=== PATIENT | male | born 1950 | race Caucasian/White ===

== ENCOUNTER 2020-04-17 16:29 | Outpatient (CLI) | payer MEDICARE, MEDICAID, SELFPAY ==
--- NOTE | ~2020-04-17 | MR_ITS ---
EXAMINATION: MR foot LT wo con DATE: 04/17/2020 18:28 INDICATION: Osteomyelitis TECHNIQUE: Magnetic resonance imaging (MRI) of the left forefoot was performed without intravenous co ntrast. Sequences included axial, sagittal and coronal T1-weighted FSE and T2-weighted FS FSE, and ax ial PD-weighted FSE. COMPARISON: None FINDINGS: Marrow signal changes including prominent marrow edema and associated geographic loss of T1 marrow fa t signal at the first distal phalanx and head of the first proximal phalanx, at the second middle pha lanx and head of the proximal phalanx and at the third middle and distal phalanges which are suspicio us for septic arthritis and associated osteomyelitis centered at the first interphalangeal, second pr oximal interphalangeal and third distal interphalangeal joints. The low signal intensity peripheral c ortices are indistinct at several of the region of ostial myelitis suggesting osteolysis which could be more definitively assessed with plain radiographs. There is marrow edema at the medial head of the first metatarsal and at the first metatarsal sesamoids without geographic loss of T1 fat signal whic h is equivocal for reactive edema related to moderate osteoarthritis at the first metatarsophalangeal joint although early osteomyelitic cannot be absolutely excluded. No loculated fluid collections to suggest abscess. Extensive fatty atrophy of the visualized intrinsic musculature of the forefoot like ly related to chronic neuropathy. Soft tissue swelling and prominent subcutaneous edema over the dors um of the forefoot. IMPRESSION: 1. Joint centered marrow signal changes at the both sides of the left first interphalangeal, second p roximal interphalangeal and third distal interphalangeal joints suggesting septic arthritis and osteo myelitis. 2. Mild marrow edema at the head of the first metatarsal without definitive loss of T1 fat signal whi ch may be reactive related to the moderate osteoarthritis at the first metatarsophalangeal joint alth ough less advanced osteomyelitis could not be excluded. Reviewed, dictated and finalized at location A. IMPRESSION: 1. Joint centered marrow signal changes at the both sides of the left first int erphalangeal, second proximal interphalangeal and third distal interphalangeal joints suggesting septic arthritis and osteomyelitis. 2. Mild marrow edema at the head of the first metatarsal without definitive los s of T1 fat signal which may be reactive related to the moderate osteoarthritis at the first metatarsophalangeal joint although less advanced osteomyelitis co uld not be excluded.
[2020-04-17 17:03] LABS: Estimated Glomerular Filt Rate 26
== END 2020-04-17 16:30 | disposition home or self-care (01) ==
PROVIDERS: PCP Internal Medicine; Visit Provider General Practice
DX: M86.9 Osteomyelitis, unspecified (principal)
CPT/HCPCS: 73718

== ENCOUNTER 2020-04-26 17:29 | Emergency (ER) | payer MEDICARE, BC, MEDICAID, OTHER, SELFPAY ==
--- NOTE | ~2020-04-26 | XR_ITS ---
EXAMINATION: XR foot LT min 3V DATE: 04/26/2020 18:21 INDICATION: Foot infection, gangrene of the first toe TECHNIQUE: Three views of the left foot were obtained. COMPARISON: MRI, 04/17/2020 FINDINGS: There is a soft tissue ulceration of the first toe medially adjacent to the distal interpha langeal joint. There is adjacent osteopenia in the first distal phalanx. No fracture is identified. T here is moderate polyarticular osteoarthritis. Erosions are seen in the lateral base of the second mi ddle phalanx and the lateral head of the second proximal phalanx. There is also osteopenia of the thi rd distal phalanx. IMPRESSION: 1. Soft tissue ulceration of the first toe with findings suggestive of underlying osteoarthritis in t he first distal phalanx. 2. Additional osteomyelitis suggested in the second proximal interphalangeal joint and the third dist al interphalangeal joint as described on recent MRI. Reviewed, dictated and finalized at location A. IMPRESSION: 1. Soft tissue ulceration of the first toe with findings suggestive of underlyi ng osteoarthritis in the first distal phalanx. 2. Additional osteomyelitis suggested in the second proximal interphalangeal patricia int and the third distal interphalangeal joint as described on recent MRI.
[2020-04-26 17:40] VITALS: BP 160/60; PULSE 73; RESP 18; TEMP 36.8; O2SAT 98
--- NOTE | 2020-04-26 18:44 | ED.LOWEXIN ---
HPI - Extremity Injury (Lower) General Chief Complaint: Extremity Injury, Lower Stated Complaint: foot Source: patient Mode of arrival: EMS Limitations: no limitations History of Present Illness HPI Narrative: Patient presents with chief complaint of infection to the left great toe that has been persistently worsening over the past 3 weeks. Patient states that he has been managed by knot saw operator Dr. Vidal who told him that the toe needed to be removed, however the patient did not want to go to [facility], so he instead presented to [place] [facility]. Patient states that he feels pressure to the toe but has neuropathy in his feet so he does not necessarily feel pain to the areas. Patient denies having diabetes. Patient states that the wound started with irritation from his shoe which caused a blister and has now spread to the weeping wounds that he has on his feet at this time. Patient denies fever, chills, nausea, vomiting, inability needs or any other symptoms or concerns. Related Data Home Medications Medication Instructions Recorded Confirmed albuterol sulfate [Ventolin HFA] 1 puff INHALATION DAILY 04/26/20 04/26/20 apixaban [Eliquis] 2.5 mg PO DAILY 04/26/20 04/26/20 atorvastatin 10 mg PO HS 04/26/20 04/26/20 fenofibrate nanocrystallized mg PO 04/26/20 ferrous sulfate 325 mg PO DAILY 04/26/20 04/26/20 furosemide 10 mg 04/26/20 gabapentin 300 mg PO TID 04/26/20 04/26/20 levothyroxine 25 mcg PO DAILY 04/26/20 04/26/20 pantoprazole PO 04/26/20 Allergies Allergy/AdvReac Type Severity Reaction Status Date / Time codeine Allergy Unknown Verified 04/26/20 17:47 morphine Allergy Unknown Verified 04/26/20 17:47 Review of Systems Review of Systems: Narrative: CONSTITUTIONAL: Denies fever, chills, or sweats. EYES: Denies visual changes, redness, or discharge. ENT: Denies rhinorrhea, congestion, sore throat, or otalgia. CARDIOVASCULAR: Denies chest pain, palpitations, or edema. RESPIRATORY: Denies cough or dyspnea. GASTROINTESTINAL: Denies abdominal pain, nausea, vomiting, or diarrhea. GENITOURINARY: Denies dysuria or hematuria. SKIN: Reports left foot wound MUSCULOSKELETAL: Denies back pain, myalgia, or joint pain NEUROLOGIC: Denies headache, numbness, dizziness, or weakness. PSYCHIATRIC: Denies anxiety or depression. Exam Narrative: Exam Narrative: GENERAL: Well-appearing, well-nourished. HEAD: Normocephalic, atraumatic. EYES: PERRLA and EOMI. ENT: Nares clear, no rhinorrhea or epistaxis. Mucous membranes moist. Oropharynx without tonsillar hypertrophy exudate or other lesions. Bilateral TMs pearly garcia nonbulging NECK: Supple. No adenopathy or masses. No vertebral tenderness or loss of ROM. CHEST: Clear to auscultation. No respiratory distress. No wheezes rales or rhonchi HEART: Regular rate and rhythm. Normal peripheral pulses. ABDOMEN: Soft, nontender, nondistended, normal active bowel sounds. No bruises noted. EXTREMITIES: No acute changes in ROM. No edema. SKIN: There's dryness to patient lower extremities. DP pulse palpable. There's open ulceration noted to the medial and dorsal aspect of the left great toe. Wet to dry dressing removed. Skin warm to touch. Not much erythema. Small wounds on the other toes as well. NEURO: No focal deficits. Alert and oriented x3. PSYCH: Normal mood and affect. Course Vital Signs Vital signs: Vital Signs Temperature 98.2 F 04/26/20 17:40 Pulse Rate 73 04/26/20 17:40 Respiratory Rate 18 04/26/20 17:40 Blood Pressure 160/60 H 04/26/20 17:40 Pulse Oximetry 98 04/26/20 17:40 Temperature 98.2 F 04/26/20 17:40 Pulse Rate 81 04/26/20 19:58 Respiratory Rate 20 04/26/20 19:58 Blood Pressure 168/76 H 04/26/20 19:58 Pulse Oximetry 100 04/26/20 19:58 MDM - Extremity Injury (Lower) MDM Narrative Medical decision making narrative: Consult placed with orthopedically impaired teacher Dr. Masoud DEGROOT who states the patient does not have
[2020-04-26 18:48] LABS: Basophils Absolute Auto 0.1 K/mm3 (0.0-0.1); Basophils Percent Auto 0.7 % (0.2-1.2); Eosinophils Absolute Auto 0.8 K/mm3 (0-0.3); Eosinophils Percent Auto 8.8 % (0-4.4); Hematocrit 28.8 % (42.0-52.0); Hemoglobin 9.5 g/dL (14.0-18.0); Immature Granulocyte Absolute 0.01 K/mm3 (0.00-0.031); Immature Granulocyte Percent A 0.1 % (0-0.5); Lymphocytes Absolute Auto 1.98 K/mm3 (0.9-3.2); Lymphocytes Percent Auto 22.7 % (18.3-44.2); Mean Corpuscular Hemoglobin 28.1 pg (26-34); Mean Corpuscular Volume 85.2 fl (80-100); Monocytes Absolute Auto 0.7 K/mm3 (0.1-0.6); Monocytes Percent Auto 7.7 % (2.6-8.5); Neutrophils Absolute Auto 5.2 K/mm3 (1.3-6.7); Platelet Count Result 238 k/mm3 (150-375); Red Blood Count 3.38 M/mm3 (4.6-6.20); White Blood Count 8.7 K/mm3 (4.5-10.0)
[2020-04-26 18:58] LABS: INR 1.3; Prothrombin Time 15.4 Seconds (11.1-14.7)
[2020-04-26 19:00] LABS: Partial Thromboplastin Time 32.1 SECONDS (22.3-36.8)
[2020-04-26 19:02] LABS: Alanine Aminotransferase 29 U/L (4-50); Albumin Level 4.2 g/dL (3.5-5.1); Alkaline Phosphatase 410 U/L (38-126); Anion Gap 11 mmol/L (8-16); Aspartate Amino Transferase 24 U/L (17-59); Bilirubin,Total 0.7 mg/dL (0.2-1.3); Blood Urea Nitrogen 60 mg/dL (9-20); CRP 1.4 mg/dL (<1.0); Calcium 9.5 mg/dL (8.4-10.2); Carbon Dioxide 26 mmol/L (22-30); Chloride 102 mmol/L (98-107); Estimated CRCL calculation 46 ml/min; Estimated Glomerular Filt Rate 35; Glucose 98 mg/dL (75-110); Potassium 4.7 mmol/L (3.4-5.0); Sodium 139 mmol/L (137-145)
[2020-04-26 19:58] VITALS: BP 168/76; PULSE 81; RESP 20; O2SAT 100
[2020-04-26 21:19] VITALS: BP 165/74; PULSE 82; RESP 20; O2SAT 99
--- NOTE | 2020-04-27 00:32 | PC.NURSE ---
shannan arrived for transport to [facility]
[2020-04-27 00:47] VITALS: BP 163/72; PULSE 74; RESP 18; O2SAT 98
== END 2020-04-27 01:30 ==
PROVIDERS: Physician Assistant; Emergency Provider Emergency Medicine; PCP Internal Medicine
DX: M86.672 Other chronic osteomyelitis, left ankle and foot (principal); Z79.01 Long term (current) use of anticoagulants
CPT/HCPCS: 36415; 73630; 80053; 85025; 85610; 85730; 86140; 87040; 87070; 87077; 87186; 87205; 99283

== ENCOUNTER 2020-04-28 14:52 | Emergency (ER) | payer MEDICARE, BC, MEDICAID, OTHER, SELFPAY ==
[2020-04-28] VITALS (23 sets, daily range): BP systolic 107–137; BP diastolic 43–74; PULSE 63–70; RESP 14–18; TEMP 36.7; O2SAT 95–100
--- NOTE | ~2020-04-28 | XR_ITS ---
XR chest 1V portable DATE: 04/28/2020 16:54 INDICATION: Positive blood culture. Sepsis. Hypertension history. TECHNIQUE: Portable upright AP chest on 04/28/2020 at 1641 hours COMPARISON: None FINDINGS: Heart size appears normal. No hilar or mediastinal enlargement. No pulmonary consolidation is evident. There is suggestion of mild infiltrate or atelectasis in the l ower lung zones. Aortic arch calcification is suggested. Diffuse osteopenia. Degenerative changes of the thoracic spine. IMPRESSION: Mild infiltrate or atelectasis at the lung bases Reviewed, dictated and finalized at location A.
--- NOTE | ~2020-04-28 | XR_ITS ---
XR toe 1st LT min 2V DATE: 04/28/2020 16:54 INDICATION: Foot wound. Distal phalangeal infection. TECHNIQUE: Portable AP and lateral views COMPARISON: None FINDINGS: There is soft tissue swelling of the first digit. There is diffuse osteopenia. There is bone destruction of the tuft and anterior base of the distal phalanx, with mild subcutaneous emphysema, suggesting osteomyelitis. No radiopaque foreign body is evident. IMPRESSION: Bone destruction of distal phalanx in association with soft tissue swelling, suggesting o steomyelitis Reviewed, dictated and finalized at location A. IMPRESSION: Bone destruction of distal phalanx in association with soft tissue swelling, suggesting osteomyelitis
--- NOTE | 2020-04-28 15:02 | ED.RECABL ---
HPI - Recheck/Abnormal Lab/Rx General Chief Complaint: Wound/Laceration Stated Complaint: wound on foot + blood cultures Time Seen by Provider: 04/28/20 15:02 Source: patient and EMS Mode of arrival: EMS Limitations: no limitations History of Present Illness HPI narrative: Patient is a 69-year-old male who presents for evaluation after found to have positive blood cultures at [facility] facility. Patient states that he has had a left great toe wound over the past 2 weeks after he wore shoes that were too tight. Patient has a history of peripheral neuropathy but denies any history of diabetes. Patient states the toe has appeared red, swollen, black wound overlying the toe. Patient denies any fever, chills, cough or shortness of breath. He states he does not have much feeling in that foot. He does not endorse any pain. Patient states otherwise he is feeling well. Denies any abdominal pain, diarrhea, denies urinary symptoms. Pt seen here and evaluated on 04/26 by MIKAYLA Wilson and discharged home with outpatient follow up. Reviewed Gram stain from April 26, no white blood seen, rare gram-positive cocci in chains, isolate long, heavy growth of enterococcus species. Follows with Dr. Vidal at [facility]. Related Data Allergies Allergy/AdvReac Type Severity Reaction Status Date / Time codeine Allergy Nausea and Verified 04/28/20 15:46 Vomiting morphine Allergy Nausea and Verified 04/28/20 15:46 Vomiting Review of Systems Review of Systems: Narrative: CONSTITUTIONAL: Denies fever, chills, or sweats. ENT: Denies rhinorrhea, congestion, sore throat, or otalgia. CARDIOVASCULAR: Denies chest pain, palpitations, or edema. RESPIRATORY: Denies cough or dyspnea. GASTROINTESTINAL: Denies abdominal pain, nausea, vomiting, or diarrhea. GENITOURINARY: Denies dysuria or hematuria. SKIN: Denies rash or itching. MUSCULOSKELETAL: Denies back pain, joint pain, or myalgia. Reports wound to left great toe. NEUROLOGIC: Denies headache, numbness, or weakness. [facility] Past Medical History Medical History (Updated 04/28/20 @ 19:45 by Zhen Rawls MD) C. difficile colitis Hypertension Peripheral neuropathy Surgical History Surgical History (Updated 04/28/20 @ 19:27 by Zhen Rawls MD) History of colostomy Social History Social History (Updated 04/28/20 @ 15:29 by Shauna Ortiz MD) Smoking status: Never smoker Substance use: never Living arrangements: longterm Gender identity (if verbalized by the patient): Male Exam Narrative: Exam Narrative: GENERAL: Awake, alert, conversant HEAD: Normocephalic, atraumatic. EYES: PERRLA and EOMI. ENT: Nares clear, no rhinorrhea or epistaxis. Mucous membranes moist. NECK: Supple. CHEST: No respiratory distress, breathing even and non labored HEART: Regular rate, sinus rhythm ABDOMEN:Non distended, non tender EXTREMITIES: Normal range of motion. Nonpitting edema to bilateral lower extremities. Patient has black eschar overlying left great toe, metatarsal area with erythema, edema. Mild warmth. No purulent discharge. No tunneling. SKIN: Warm, dry, no rash. NEURO:No focal deficits. Alert and oriented x3 Course Vital Signs Vital signs: Vital Signs Temperature 36.7 C 04/28/20 15:31 Pulse Rate 63 04/28/20 15:31 Respiratory Rate 16 04/28/20 15:31 Blood Pressure 122/54 L 04/28/20 15:31 Pulse Oximetry 100 04/28/20 15:31 Temperature 36.7 C 04/28/20 15:31 Pulse Rate 69 04/28/20 19:40 Respiratory Rate 18 04/28/20 19:40 Blood Pressure 137/50 L 04/28/20 19:40 Pulse Oximetry 100 04/28/20 19:40 MDM - Recheck/Abnormal Lab/Rx MDM Narrative Medical decision making narrative: Patient return to the emergency department for evaluation of positive blood cultures. The time of assessment, ABCs are intact and vital signs are stable. Patient is afebrile, no signs of severe sepsis or septic shock. No leukocytosis. Stable a
[2020-04-28] MEDS: SODIUM CHLORIDE 0.9% IV 1,000 ML 999 ML IV CONT (15:45)
[2020-04-28 15:50] LABS: Basophils Absolute Auto 0.1 K/mm3 (0.0-0.1); Basophils Percent Auto 0.6 % (0.2-1.2); Eosinophils Absolute Auto 0.7 K/mm3 (0-0.3); Eosinophils Percent Auto 9.1 % (0-4.4); Hematocrit 26.8 % (42.0-52.0); Immature Granulocyte Absolute 0.02 K/mm3 (0.00-0.031); Immature Granulocyte Percent A 0.3 % (0-0.5); Lymphocytes Percent Auto 27.9 % (18.3-44.2); Mean Corpuscular HGB Conc 33.6 g/dl (32-36); Mean Corpuscular Hemoglobin 28.2 pg (26-34); Mean Platelet Volume 8.7 fl (7.4-10.4); Monocytes Absolute Auto 0.6 K/mm3 (0.1-0.6); Monocytes Percent Auto 8.1 % (2.6-8.5); Neutrophils Absolute Auto 4.3 K/mm3 (1.3-6.7); Platelet Count Result 235 k/mm3 (150-375); Red Blood Count 3.19 M/mm3 (4.6-6.20); Red Cell Distribution Width 15.2 % (11.5-14.5); White Blood Count 7.9 K/mm3 (4.5-10.0)
[2020-04-28 15:59] LABS: INR 1.3; Partial Thromboplastin Time 33.9 SECONDS (22.3-36.8); Prothrombin Time 15.7 Seconds (11.1-14.7)
[2020-04-28 16:07] LABS: Lactic Acid Reflex 0.5 mmol/L (0.7-2.1)
[2020-04-28 16:10] LABS: Anion Gap 11 mmol/L (8-16); Blood Urea Nitrogen 60 mg/dL (9-20); CRP 1.4 mg/dL (<1.0); Carbon Dioxide 23 mmol/L (22-30); Chloride 105 mmol/L (98-107); Estimated CRCL calculation 50 ml/min; Estimated Glomerular Filt Rate 40; Glucose 95 mg/dL (75-110); Potassium 4.3 mmol/L (3.4-5.0); Sodium 139 mmol/L (137-145)
[2020-04-28 16:30] LABS: Erythrocyte Sedimentation Rate > 140 mm/hr (0-20)
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
--- NOTE | 2020-04-28 21:44 | PC.NURSE ---
called [facility] to request transport. ETA 2300. [facility] and [facility] not available tonjun.
--- NOTE | 2020-04-28 23:55 | PC.NURSE ---
[facility] ETA update to [id number] [phone] [id number]
[2020-04-29] VITALS (14 sets, daily range): BP systolic 81–114; BP diastolic 40–70; PULSE 64–73; RESP 13–23; TEMP 36.3; O2SAT 97–100
--- NOTE | 2020-04-29 00:32 | PC.NURSE ---
[facility] called and ETA 0044
--- NOTE | 2020-04-29 02:01 | PC.NURSE ---
[facility] here to transport patient to [place]. Patient's IV vanc paused.
== END 2020-04-29 02:01 | disposition short-term general hospital (02) ==
PROVIDERS: Emergency Provider Emergency Medicine; PCP General Practice
DX: I96 Gangrene, not elsewhere classified (principal); M86.172 Other acute osteomyelitis, left ankle and foot; D64.9 Anemia, unspecified; N19 Unspecified kidney failure; I10 Essential (primary) hypertension; G62.9 Polyneuropathy, unspecified; R91.8 Other nonspecific abnormal finding of lung field
CPT/HCPCS: 36415; 71045; 73660; 80048; 83605; 85025; 85610; 85652; 85730; 86140; 87040; 96361; 96365; 96366; 96367; 99285; J2543; J3370; J7030

== ENCOUNTER 2021-12-25 14:46 | Inpatient (IN) | payer MEDICARE, MEDICAID, SELFPAY ==
--- NOTE | ~2021-12-25 | CT_ITS ---
EXAMINATION: CT abdomen pelvis wo con DATE: 12/25/2021 17:11 INDICATION: Decreased urinary output, hypotension. Transaminitis. TECHNIQUE: Computed tomography (CT) of the abdomen and pelvis was performed without intravenous contr ast. Automated exposure control and iterative reconstruction technique were employed. Exam dose: 156 9.21 mGy-cm total exam DLP. COMPARISON: None. FINDINGS: There is mild bilateral lower lobe dependent atelectasis. Heart size is within upper normal range. Trace pericardial fluid. No pleural effusion. Small sliding hiatal hernia. There is pneumobilia, likely due to cholecystectomy. Occasional hepatic and splenic calcifications co nsistent with old granulomatous disease. No hepatic, splenic, pancreatic or adrenal space-occupying mass lesion is evident. No right renal mass lesion or right urinary tract calculus or hydroureteronephrosis. There is a large peripherally calcified exophytic lower pole left renal mass measuring up to approxim ately 6 x 7 cm dimension. There is a small approximately 4 mm nonobstructing calculus or arterial vinny cification in the lower pole left kidney. No left ureteral calculus or hydroureteronephrosis. There is a Pereira catheter within the completely evacuated urinary bladder. There is considerable streak artifact in the pelvic area from left total hip replacement and right fe moral head compression screw, limiting evaluation of the pelvic structures. There is calcification but normal caliber of the abdominal aorta and iliac arteries. There is partial colectomy, with right lower quadrant ostomy and associated. No bowel obstruction or free air is detected. There are burst fracture deformities of T12 and L1 and moderate anterior wedge compression fracture d eformity of T11.. There is osteopenia. Prominent degenerative changes of the thoracic and lumbar spin e, particularly the apophyseal joints. IMPRESSION: Partial colectomy Status post cholecystectomy, likely responsible for pneumobilia Small sliding hiatal hernia 6 x 7 cm heavily peripherally calcified exophytic left renal mass, likely calcified hemorrhagic cyst Fractures of T11, T12 and L1 Reviewed, dictated and finalized at Location A. Reviewed, dictated and finalized at location A. IMPRESSION: Partial colectomy Status post cholecystectomy, likely responsible for pneumobilia Small sliding hiatal hernia 6 x 7 cm heavily peripherally calcified exophytic left renal mass, likely calci fied hemorrhagic cyst Fractures of T11, T12 and L1
--- NOTE | ~2021-12-25 | XR_ITS ---
XR chest 1V portable 12/25/2021 15:56 Indication: Weakness and shortness of breath Procedure: AP portable chest Comparison: 04/28/2020 Findings: There are bilateral mixed interstitial and airspace disease in the perihilar locations. Car diomegaly. No significant effusion or pneumothorax. Impression: 1: Bilateral perihilar infiltrates with peribronchial thickening, edema versus pneumonia. Reviewed, dictated and finalized at location B. Impression: 1: Bilateral perihilar infiltrates with peribronchial thickening, edema versus pneumonia.
--- NOTE | ~2021-12-25 | XR_ITS ---
EXAMINATION: XR chest port-a-cath/central Exam Date/Time: 12/30/2021 15:10 CDT HISTORY: Jacc catheter placement Comparison: None available. RESULT: Lines, tubes, and devices: Left IJ central line terminates in the right atrium. Stable lumbar cercla ge wires. Lungs and pleura: Increased bilateral lower lung opacities. Cardiomediastinal silhouette: Stable cardiomediastinal silhouette. Other: No acute osseous or upper abdominal finding. IMPRESSION: Left IJ central line terminates in right atrium. Worsening pulmonary opacities. Reviewed, dictated and finalized at location K.
--- NOTE | ~2021-12-25 | XR_ITS ---
XR chest 1V portable 12/29/2021 12:45 Indication: Wheezing and cough Procedure: AP portable chest Comparison: Comparison to multiple prior studies sequentially, with oldest reviewed study dated 04/19. Findings: Cardiomegaly with mild interstitial edema. No pleural effusions. No pneumothorax. No acute osseous abnormality. Impression: 1: Cardiomegaly with interstitial edema. Reviewed, dictated and finalized at location A. Impression: 1: Cardiomegaly with interstitial edema.
[2021-12-25 14:49] VITALS: BP 100/46; PULSE 98; RESP 18; TEMP 36.8; O2SAT 93
--- NOTE | 2021-12-25 14:53 | ECG_ITS ---
Measurements Intervals [place] Rate: 90 P: 37 MI: 162 QRS: 4 QRSD: 117 T: 18 QT: 328 QTc: 402 Interpretive Statements SINUS RHYTHM MODERATE INTRAVENTRICULAR CONDUCTION DELAY [110+ ms QRS DURATION] NO PREVIOUS ECG AVAILABLE FOR COMPARISON Electronically Signed On 12-25-2021 22:17:50 CDT by Toma Padgett M.D.
[2021-12-25 15:23] VITALS: BP 99/52; PULSE 94; RESP 17; O2SAT 96
[2021-12-25] MEDS: SODIUM CHLORIDE 0.9% IV 500 ML 999 ML IV CONT (15:46)
[2021-12-25 15:49] LABS: Hematocrit 30.2 % (42.0-52.0); Hemoglobin 10.1 g/dL (14.0-18.0); Mean Corpuscular HGB Conc 33.4 g/dl (32-36); Mean Corpuscular Hemoglobin 27.7 pg (26-34); Mean Platelet Volume 9.6 fl (7.4-10.4); Platelet Count Result 188 k/mm3 (150-375); Red Blood Count 3.64 M/mm3 (4.6-6.20); Red Cell Distribution Width 16.6 % (11.5-14.5); White Blood Count 21.4 K/mm3 (4.5-10.0)
[2021-12-25 15:50] LABS: Appearance Urine Cloudy (Clear); Bilirubin Urine Negative (Negative); Blood Urine 3+ (Negative); Color Urine Yellow (Yellow); Glucose Urine UA Negative (Negative); Ketones Urine Negative (Negative); Leukocyte Esterase Ur 3+ LEU/UL (Negative); Nitrate Urine Negative (Negative); Protein Urine 2+ mg/dL (Negative); Urobilinogen Urine 0.2 mg/dL (<2.0); pH Urine 5.5 (5.0-9.0)
[2021-12-25 15:54] LABS: Alveolar/Arterial O2 Gradient 98.3 mmHg; Base Excess ABG -3.9 mEq/l (+/-2.0); Carboxyhemoglobin 0.4 % THb (0-2.0); Device NASAL CANNULA; Fractional Inspired Oxygen 28 %; Methemoglobin ABG 0.3 %THb (0-1.5); Modified Allen's Test Pass; Oxygen Content ABG 14.4 %vol (16.0-22.0); Oxygen Saturation ABG 92.6 % (95.0-100.0); Oxyhemoglobin 91.1 % THb (90.0-100.0); PCO2 ABG 32.4 mmHg (35.0-45.0); PO2 ABG 63.1 mmHg (80.0-100.0); PO2 FiO2 Ratio Arterial Blood 2.25 %; Reduced Hemoglobin 8.2 %THb (0-5.0); Site Drawn LEFT RADIAL; Total Hemoglobin 11.2 g/dL (12.0-18.0); pH ABG 7.408 (7.350-7.450)
[2021-12-25 15:58] LABS: RBC Urine >75 /hpf (0-2); Squamous Epithelial Cell Urine Few /hpf (Few); WBC Clumps Urine Present /HPF; WBC Urine >75 /hpf
[2021-12-25 16:02] LABS: Add Urine Microscopic? YES; Lactic Acid Reflex 2.4 mmol/L (0.7-2.0)
[2021-12-25 16:08] LABS: INR 1.8; Partial Thromboplastin Time 35.5 SECONDS (22.3-36.8); Prothrombin Time 20.5 Seconds (11.1-14.7)
[2021-12-25 16:16] LABS: Alanine Aminotransferase 150 U/L (6-50); Alkaline Phosphatase 412 U/L (38-126); Anion Gap 12 mmol/L (8-16); Aspartate Amino Transferase 120 U/L (17-59); Band Neutrophils Percent 8 % (0-6); Bilirubin,Total 2.6 mg/dL (0.2-1.3); Blood Urea Nitrogen 49 mg/dL (9-20); CRP > 9.0 mg/dL (<1.0); Calcium 8.4 mg/dL (8.4-10.2); Carbon Dioxide 23 mmol/L (22-30); Chloride 96 mmol/L (98-107); Estimated CRCL calculation 29 ml/min; Estimated Glomerular Filt Rate 20; Glucose 103 mg/dL (65-110); Lymphocytes Absolute Manual 0.85 K/mm3 (1.1-4.5); Monocytes Absolute Manual 2.14 K/mm3 (0.1-0.90); Monocytes Percent Manual 10 % (3-9); NT Pro B Type Natriuretic Pept 5710 pg/mL (5-100); Neutrophils Percent Manual 78 % (46-73); Potassium 4.3 mmol/L (3.4-5.0); Sodium 131 mmol/L (137-145); Total Cells Counted 100; Troponin I 0.143 ng/mL (0.000-0.034)
[2021-12-25 16:17] LABS: Platelet Estimate Adequate (Adequate)
--- NOTE | 2021-12-25 16:59 | ED.GENADULT ---
HPI - General Adult General Chief complaint: Altered Mental Status Stated complaint: AMS/ DECREASED URINARY OUTPUT Time Seen by Provider: 12/25/21 15:10 Source: patient, family, RN notes reviewed and old records reviewed Mode of arrival: EMS History of Present Illness HPI narrative: This is a 71 year old male with history of COPD, CHF, chronic indwelling cowan and chronic kidney disease who presents for evaluation of decreased urine output. Patient's daughter states patient has had a cough for 2- 3 weeks but he was negative for covid. She also states patient has been on antibiotics. She states patient has cowan catheter in place and she is unsure if it has been changed recently. EMS reports patient lethargic and hypotensive with BP 90/40. Patient states he has not felt well for 3-4 days . He has nausea and cough. He denies headache, recent fall, chest pain, abdominal pain or back pain. Related Data Home Medications Medication Instructions Recorded Confirmed albuterol sulfate 90 mcg/actuation 1 puff inhalation DAILY 04/26/20 04/26/20 aerosol inhaler (Ventolin HFA) apixaban 2.5 mg tablet (Eliquis) 2.5 mg PO DAILY 04/26/20 04/26/20 atorvastatin 10 mg tablet 10 mg PO HS 04/26/20 04/26/20 fenofibrate nanocrystallized 145 mg PO 04/26/20 mg tablet ferrous sulfate 325 mg (65 mg 325 mg PO DAILY 04/26/20 04/26/20 iron) tablet furosemide 10 mg/mL injection 10 mg 04/26/20 cartridge gabapentin 300 mg capsule 300 mg PO TID 04/26/20 04/26/20 levothyroxine 25 mcg tablet 25 mcg PO DAILY 04/26/20 04/26/20 pantoprazole 20 mg tablet,delayed PO 04/26/20 release Allergies Allergy/AdvReac Type Severity Reaction Status Date / Time codeine Allergy Unknown Verified 12/25/21 15:26 morphine Allergy Unknown Verified 12/25/21 15:26 Review of Systems Review of Systems: ROS unobtainable: Yes unobtainable due to mental status Constitutional: Constitutional: Denies chills, Reports fatigue and Denies fever(s) [facility] Past Medical History Medical History (Updated 12/25/21 @ 22:33 by Tianna Dalton MD) C. difficile colitis Chronic anticoagulation Chronic kidney disease Emphysema/COPD Hypertension Hypothyroid Peripheral neuropathy Surgical History Surgical History (Updated 04/30/20 @ 14:02 by Shaina Samuel) History of colostomy Social History Social History Smoking status: Never smoker Substance use: never Gender identity (if verbalized by the patient): Male Course Reevaluation(s) Reevaluation #1: Patient presented with weakness and decreased urine outpatient. I looked at patient's bladder with US and found bladder distention. Nursing placed new cowan catheter. REports it was initially bloody but now it looks like milk. IT is draining well. This may be partial cause of acute renal failure. Patient with severe sepsis, UTI and possible pneumonia. no respiratory acidosis. Patient has been accepted to IMU by Vladimir murrell after discussion of labs and imaging. Date: 12/25/21 Time: 18:00 Vital Signs Vital signs: Vital Signs Temperature 98.2 F 12/25/21 14:49 Pulse Rate 98 12/25/21 14:49 Respiratory Rate 18 12/25/21 14:49 Blood Pressure 100/46 L 12/25/21 14:49 Pulse Oximetry 93 12/25/21 14:49 Oxygen Delivery Room Air 12/25/21 14:49 Temperature 98.2 F 12/25/21 14:49 Pulse Rate 87 12/25/21 21:22 Respiratory Rate 19 12/25/21 21:22 Blood Pressure 122/67 12/25/21 21:22 Pulse Oximetry 94 12/25/21 21:22 Oxygen Delivery Nasal Cannula 12/25/21 15:23 Oxygen Flow Rate 2 12/25/21 15:23 Medical Decision Making Vital Signs Vital Signs: Vital Signs Temperature 98.2 F 12/25/21 14:49 Pulse Rate 98 12/25/21 14:49 Respiratory Rate 18 12/25/21 14:49 Blood Pressure 100/46 L 12/25/21 14:49 Pulse Oximetry 93 12/25/21 14:49 Oxygen Delivery Room Air 12/25/21 14:49 Temperature 98.2 F 12/25/21 14:49 Pulse Rate 87 12/25/21
[2021-12-25 17:17] VITALS: BP 118/89; PULSE 82; RESP 15; O2SAT 98
[2021-12-25] MEDS: cefTRIAXone 2 GM in SODIUM CHLORIDE 0.9% IV 100 ML 200 ML IVPB (17:17)
[2021-12-25 17:40] LABS: Ammonia < 9 umol/L (9-30)
[2021-12-25 17:56] VITALS: BP 118/89; PULSE 76; RESP 18; O2SAT 98
[2021-12-25] MEDS: SODIUM CHLORIDE 0.9% IV 1,000 ML 999 ML IV CONT (18:05)
[2021-12-25 18:07] LABS: SARS-CoV-2 RNA PCR Negative
[2021-12-25 18:44] LABS: Hepatitis B Surface Antigen Negative (Negative)
[2021-12-25 18:45] LABS: Reflex Lactic Acid Yes or No Add Lactic
[2021-12-25 18:49] LABS: HAV RESULT Negative (Negative); Hepatitis B Core IgM Result Negative (Negative)
[2021-12-25 19:01] LABS: Hepatitis C Virus Antibody Negative (Negative)
--- NOTE | 2021-12-25 19:08 | PC.NURSE ---
Pt in CT at this time.
[2021-12-25 21:22] VITALS: BP 122/67; PULSE 87; RESP 19; O2SAT 94
[2021-12-26] VITALS (22 sets, daily range): BP systolic 103–147; BP diastolic 40–72; PULSE 63–112; RESP 11–22; TEMP 36.4–37; O2SAT 91–100; BMI 39.9
[2021-12-26] MEDS: SODIUM CHLORIDE 0.9% IV 1,000 ML 100 ML IV CONT ×2 (00:30→08:44)
--- NOTE | 2021-12-26 00:35 | PC.NURSE ---
This patient, Bob Simmons, was admitted to Intensive Care Unit-10. Patient/family oriented to hospital policies and general routines including ID bracelet, bed and alarms, visiting hours, pain management, procedures, bathroom and other care routines, personal items, smoking policy, room service/diet, and visiting hours. Information on how to activate the Rapid Response Team has been discussed. Patient/Family are encouraged to report perceived risks to care and to ask questions if they do not understand what they are told or what they should do.
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
[2021-12-26 04:09] LABS: Basophils Absolute Auto 0.1 K/mm3 (0.0-0.1); Basophils Percent Auto 0.3 % (0.2-1.2); Eosinophils Absolute Auto 0.1 K/mm3 (0-0.3); Eosinophils Percent Auto 0.6 % (0-4.4); Hematocrit 29.5 % (42.0-52.0); Hemoglobin 9.8 g/dL (14.0-18.0); Immature Granulocyte Absolute 0.07 K/mm3 (0.00-0.031); Immature Granulocyte Percent A 0.3 % (0-0.5); Lymphocytes Absolute Auto 1.53 K/mm3 (0.9-3.2); Lymphocytes Percent Auto 7.6 % (18.3-44.2); Mean Corpuscular HGB Conc 33.2 g/dl (32-36); Mean Corpuscular Hemoglobin 28.1 pg (26-34); Mean Corpuscular Volume 84.5 fl (80-100); Mean Platelet Volume 9.9 fl (7.4-10.4); Monocytes Percent Auto 9.7 % (2.6-8.5); Neutrophils Absolute Auto 16.3 K/mm3 (1.3-6.7); Neutrophils Percent Auto 81.5 % (45.5-73.1); Platelet Count Result 168 k/mm3 (150-375); Red Blood Count 3.49 M/mm3 (4.6-6.20); Red Cell Distribution Width 16.5 % (11.5-14.5)
[2021-12-26 04:21] LABS: Alanine Aminotransferase 140 U/L (6-50); Albumin Level 3.9 g/dL (3.5-5.1); Alkaline Phosphatase 386 U/L (38-126); Anion Gap 10 mmol/L (8-16); Aspartate Amino Transferase 113 U/L (17-59); Bilirubin,Total 1.5 mg/dL (0.2-1.3); Blood Urea Nitrogen 48 mg/dL (9-20); Calcium 8.5 mg/dL (8.4-10.2); Carbon Dioxide 22 mmol/L (22-30); Chloride 101 mmol/L (98-107); Estimated CRCL calculation 35 ml/min; Estimated Glomerular Filt Rate 23; Glucose 91 mg/dL (65-110); Potassium 4.2 mmol/L (3.4-5.0); Sodium 133 mmol/L (137-145)
[2021-12-26 04:37] LABS: Troponin I 0.125 ng/mL (0.000-0.034)
[2021-12-26 05:56] LABS: Alveolar/Arterial O2 Gradient 135.8 mmHg; Base Excess ABG -4.5 mEq/l (+/-2.0); Carboxyhemoglobin 0.3 % THb (0-2.0); Fractional Inspired Oxygen 36 %; HCO3 ABG 20.3 mEq/l (22.0-26.0); Methemoglobin ABG 0.3 %THb (0-1.5); Modified Allen's Test Pass; Oxygen Content ABG 13.7 %vol (16.0-22.0); Oxygen Saturation ABG 95.4 % (95.0-100.0); PCO2 ABG 36.3 mmHg (35.0-45.0); PO2 ABG 78.8 mmHg (80.0-100.0); PO2 FiO2 Ratio Arterial Blood 2.19 %; Reduced Hemoglobin 5.4 %THb (0-5.0); Site Drawn RIGHT RADIAL; Total Hemoglobin 10.3 g/dL (12.0-18.0); pH ABG 7.365 (7.350-7.450)
[2021-12-26 05:57] LABS: Device CPAP
[2021-12-26] MEDS: dilTIAZem HCL 30 MG TABLET PO ×3 (06:25→21:27)
[2021-12-26] MEDS: LEVOTHYROXINE SODIUM 25 MCG TABLET PO (06:25)
[2021-12-26 08:45] LABS: Glucose Point of Care 81 mg/dl (65-105)
[2021-12-26] MEDS: PREGABALIN (*CRX) 75 MG CAPSULE PO ×3 (08:49→17:18)
[2021-12-26] MEDS: GABAPENTIN 400 MG CAPSULE PO ×3 (08:49→17:18)
[2021-12-26] MEDS: SIMETHICONE 80 MG TAB.CHEW PO (08:49)
[2021-12-26] MEDS: guaiFENesin 12 HR 600 MG TABCR PO ×2 (08:49→21:28)
[2021-12-26] MEDS: PANTOPRAZOLE 40 MG TABLET PO (08:49)
[2021-12-26] MEDS: APIXABAN 2.5 MG TABLET PO ×2 (08:49→17:18)
[2021-12-26] MEDS: FERROUS SULFATE 324 MG TABLET PO (08:49)
[2021-12-26] MEDS: BACLOFEN 10 MG TABLET PO ×2 (08:49→17:18)
[2021-12-26] MEDS: FLUTICASONE PROPIONATE 0.05% NA SPR 16 GM BTL (*BKC) 1 SPRAY NASAL (08:50)
[2021-12-26] MEDS: ALBUTEROL SULFATE NEB 2.5 MG/3 ML INH 5 MG INHALATION ×3 (08:55→21:14)
[2021-12-26] MEDS: IPRATROPIUM BR 0.02% INH SOLN 0.5 MG/2.5 ML VIAL INHALATION ×3 (08:55→21:13)
--- NOTE | 2021-12-26 12:32 | PM.IMPN ---
Progress Note: A&P Assessment and Plan (1) Severe sepsis: Code(s): A41.9 - Sepsis, unspecified organism; R65.20 - Severe sepsis without septic shock Status: Acute (2) UTI (urinary tract infection) due to urinary indwelling catheter: Qualifiers: Encounter type: initial encounter Indwelling urinary catheter type: indwelling urethral catheter Qualified Code(s): T83.511A - Infection and inflammatory reaction due to indwelling urethral catheter, initial encounter; N39.0 - Urinary tract infection, site not specified Code(s): T83.511A - Infection and inflammatory reaction due to indwelling urethral catheter, initial encounter; N39.0 - Urinary tract infection, site not specified Status: Acute (3) Pneumonia: Qualifiers: Laterality: bilateral Lung location: unspecified part of lung Pneumonia type: due to unspecified organism Qualified Code(s): J18.9 - Pneumonia, unspecified organism Code(s): J18.9 - Pneumonia, unspecified organism Status: Acute (4) Chronic indwelling Pereira catheter: Code(s): Z97.8 - Presence of other specified devices Status: Acute (5) Acute on chronic renal failure: Qualifiers: Acute renal failure type: with acute tubular necrosis Chronic kidney disease stage: stage 3 (moderate) Chronic kidney disease stage 3 subtype: unspecified whether 3a or 3b Qualified Code(s): N17.0 - Acute kidney failure with tubular necrosis; N18.30 - Chronic kidney disease, stage 3 unspecified Code(s): N17.9 - Acute kidney failure, unspecified; N18.9 - Chronic kidney disease, unspecified Status: Acute (6) Elevated troponin: Code(s): R77.8 - Other specified abnormalities of plasma proteins Status: Acute (7) Witnessed apneic spells: Code(s): R06.81 - Apnea, not elsewhere classified Status: Acute (8) Metabolic encephalopathy: Code(s): G93.41 - Metabolic encephalopathy Status: Acute (9) Paraplegia: Onset Date: 1984 Code(s): G82.20 - Paraplegia, unspecified Status: Acute (10) Atrial fibrillation: Code(s): I48.91 - Unspecified atrial fibrillation Status: Acute Plan Sepsis criteria met on admission with tachypnea, leukocytosis, lactic acidosis, metabolic encephalopathy, hyperbilirubinemia, and acute on chronic kidney injury related to complicated UTI. Cannot completely rule out underlying pneumonia but felt less likely since CT of the abdomen showing mostly atelectasis. Patient started on antibiotic therapy with Rocephin, azithromycin and vancomycin. Blood cultures and urine cultures are pending. No fevers. WBC dropped to 20K. Patient's Pereira catheter was changed in the ER. Patient received adequate IV fluid hydration in the ER with 1.5 L in fluid bolus. He remains on maintenance fluids. Given the patient's history of CHF, will decrease IV fluids to 70 mL. LFTs wee elevated related to sepsis syndrome. LFTs trending down. Trend. Patient does have acute on chronic kidney injury due to a combination of obstructive uropathy and severe sepsis. Cr was 3.1 on admission but improved today to 2.7. The patient has had good urine output since admission. Will continue IV fluid hydration and monitor urine output closely. Follow. The patient does have elevated troponin likely secondary to strain from acute sepsis. EKG showing no acute ST-T wave changes. Cardiac event less likely given patient denies chest pain and no evidence of cardiac arrhythmia. Patient probably has a history of sleep apnea and had witnessed apneic episodes since arrival to the ICU. ABG 7.41/32/63 2L. He tolerated the BiPAP last night. Continue the same. Metabolic encephalopathy. Patient went unresponsive on arrival to the ICU. Patient was difficult to arouse. Probably related to sepsis. Symptoms resolved but still mildly confused. Can continue to monitor. Check TSH, B12. Better so can hold on CT brain. Continue routin
[2021-12-26 13:10] LABS: Glucose Point of Care 159 mg/dl (65-105)
[2021-12-26 16:12] LABS: Glucose Point of Care 138 mg/dl (65-105)
[2021-12-26] MEDS: ATORVASTATIN 10 MG TABLET PO (21:27)
[2021-12-26] MEDS: SODIUM CHLORIDE 0.9% IV 1,000 ML 70 ML IV CONT (21:31)
[2021-12-27] VITALS (24 sets, daily range): BP systolic 101–128; BP diastolic 42–90; PULSE 63–100; RESP 12–23; TEMP 36.3–37.2; O2SAT 91–99
[2021-12-27] MEDS: ALBUTEROL SULFATE NEB 2.5 MG/3 ML INH 5 MG INHALATION ×4 (03:15→20:41)
[2021-12-27] MEDS: IPRATROPIUM BR 0.02% INH SOLN 0.5 MG/2.5 ML VIAL INHALATION ×4 (03:15→20:41)
[2021-12-27 04:57] LABS: Basophils Absolute Auto 0.1 K/mm3 (0.0-0.1); Basophils Percent Auto 0.4 % (0.2-1.2); Eosinophils Absolute Auto 0.5 K/mm3 (0-0.3); Eosinophils Percent Auto 3.9 % (0-4.4); Hematocrit 23.4 % (42.0-52.0); Hemoglobin 7.5 g/dL (14.0-18.0); Immature Granulocyte Absolute 0.06 K/mm3 (0.00-0.031); Immature Granulocyte Percent A 0.5 % (0-0.5); Lymphocytes Absolute Auto 1.17 K/mm3 (0.9-3.2); Lymphocytes Percent Auto 8.9 % (18.3-44.2); Mean Corpuscular HGB Conc 32.1 g/dl (32-36); Mean Corpuscular Hemoglobin 27.2 pg (26-34); Mean Corpuscular Volume 84.8 fl (80-100); Mean Platelet Volume 9.8 fl (7.4-10.4); Monocytes Absolute Auto 1.2 K/mm3 (0.1-0.6); Monocytes Percent Auto 9.1 % (2.6-8.5); Neutrophils Absolute Auto 10.2 K/mm3 (1.3-6.7); Neutrophils Percent Auto 77.2 % (45.5-73.1); Platelet Count Result 146 k/mm3 (150-375); Red Blood Count 2.76 M/mm3 (4.6-6.20); Red Cell Distribution Width 16.2 % (11.5-14.5); White Blood Count 13.2 K/mm3 (4.5-10.0)
[2021-12-27 05:07] LABS: Alanine Aminotransferase 77 U/L (6-50); Alkaline Phosphatase 264 U/L (38-126); Anion Gap 6 mmol/L (8-16); Aspartate Amino Transferase 62 U/L (17-59); Bilirubin,Total 0.5 mg/dL (0.2-1.3); Blood Urea Nitrogen 49 mg/dL (9-20); Calcium 7.7 mg/dL (8.4-10.2); Carbon Dioxide 22 mmol/L (22-30); Chloride 105 mmol/L (98-107); Estimated CRCL calculation 42 ml/min; Estimated Glomerular Filt Rate 30; Glucose 93 mg/dL (65-110); Magnesium 1.3 mg/dL (1.6-2.3); Phosphorus 3.6 mg/dL (2.5-4.5); Potassium 4.1 mmol/L (3.4-5.0); Sodium 133 mmol/L (137-145)
[2021-12-27 05:27] LABS: Iron 15 ug/dL (49-181)
[2021-12-27 05:37] LABS: Percent Iron Saturation 7 % (20-50)
[2021-12-27] MEDS: dilTIAZem HCL 30 MG TABLET PO ×3 (06:33→21:53)
[2021-12-27] MEDS: LEVOTHYROXINE SODIUM 25 MCG TABLET PO (06:33)
[2021-12-27 07:42] LABS: Glucose Point of Care 94 mg/dl (65-105)
[2021-12-27] MEDS: cefTRIAXone 2 GM in SODIUM CHLORIDE 0.9% IV 100 ML 200 ML IVPB (08:44)
[2021-12-27] MEDS: SIMETHICONE 80 MG TAB.CHEW PO (08:44)
[2021-12-27] MEDS: guaiFENesin 12 HR 600 MG TABCR PO ×2 (08:44→21:53)
[2021-12-27] MEDS: PANTOPRAZOLE 40 MG TABLET PO (08:44)
[2021-12-27] MEDS: FLUTICASONE PROPIONATE 0.05% NA SPR 16 GM BTL (*BKC) 1 SPRAY NASAL (08:44)
[2021-12-27] MEDS: BACLOFEN 10 MG TABLET PO ×2 (08:44→17:23)
[2021-12-27] MEDS: PREGABALIN (*CRX) 75 MG CAPSULE PO ×3 (08:44→17:23)
[2021-12-27] MEDS: APIXABAN 2.5 MG TABLET PO ×2 (08:44→17:23)
[2021-12-27] MEDS: GABAPENTIN 400 MG CAPSULE PO ×3 (08:44→17:23)
[2021-12-27] MEDS: MAGNESIUM SULF 2 GM/WATER 50ML 2 GM/50 ML BAG IVPB (09:46)
[2021-12-27 10:34] LABS: Hematocrit 22.8 % (42.0-52.0); Hemoglobin 7.4 g/dL (14.0-18.0)
--- NOTE | 2021-12-27 11:53 | PM.IMPN ---
Progress Note: A&P Assessment and Plan (1) Severe sepsis: Code(s): A41.9 - Sepsis, unspecified organism; R65.20 - Severe sepsis without septic shock Status: Acute Assessment and Plan: Sepsis criteria met on admission with tachypnea, leukocytosis, lactic acidosis, metabolic encephalopathy, hyperbilirubinemia, and acute on chronic kidney injury related to complicated UTI. Cannot completely rule out underlying pneumonia but felt less likely since CT of the abdomen showing mostly atelectasis. Patient started on antibiotic therapy with Rocephin, azithromycin and vancomycin. Patient's Pereira catheter was changed in the ER. Patient received adequate IV fluid hydration in the ER with 1.5 L in fluid bolus. LFTs were elevated related to sepsis syndrome and are trending down. BCx growing gram positive cocci in chains in anaerobic bottle (1of2). UCx growing ESBL EColi. No fevers. WBC dropped to 13K. Wean off IV fluids. Change to Ertapenem. Continue Vanco. BCx have britta repeated. (2) Elevated troponin: Code(s): R77.8 - Other specified abnormalities of plasma proteins Status: Acute Assessment and Plan: The patient does have elevated troponin likely secondary to strain from acute sepsis. EKG showing no acute ST-T wave changes. Cardiac event less likely given patient denies chest pain and no evidence of cardiac arrhythmia. Continue medical management. (3) UTI (urinary tract infection) due to urinary indwelling catheter: Qualifiers: Encounter type: initial encounter Indwelling urinary catheter type: indwelling urethral catheter Qualified Code(s): T83.511A - Infection and inflammatory reaction due to indwelling urethral catheter, initial encounter; N39.0 - Urinary tract infection, site not specified Code(s): T83.511A - Infection and inflammatory reaction due to indwelling urethral catheter, initial encounter; N39.0 - Urinary tract infection, site not specified Status: Acute Assessment and Plan: Complicated UTI. As above (4) Acute on chronic renal failure: Qualifiers: Acute renal failure type: with acute tubular necrosis Chronic kidney disease stage: stage 3 (moderate) Chronic kidney disease stage 3 subtype: unspecified whether 3a or 3b Qualified Code(s): N17.0 - Acute kidney failure with tubular necrosis; N18.30 - Chronic kidney disease, stage 3 unspecified Code(s): N17.9 - Acute kidney failure, unspecified; N18.9 - Chronic kidney disease, unspecified Status: Acute Assessment and Plan: Patient has acute on chronic kidney injury due to a combination of obstructive uropathy and severe sepsis. Cr was 3.1 on admission but improved since resolution of the obstruction. Baseline 1.7-2.5. The patient has had good urine output since admission. Creatinine don to 2.2. Will stop IV fluid hydration and monitor urine output closely. Follow. (5) Metabolic encephalopathy: Code(s): G93.41 - Metabolic encephalopathy Status: Acute Assessment and Plan: Metabolic encephalopathy. Patient went unresponsive on arrival to the ICU. Patient was difficult to arouse. Probably related to sepsis and/or OLIVER. TSH levels normal. Symptoms resolved. Will continue to monitor. Check B12 and Folate. (6) Pneumonia: Qualifiers: Pneumonia type: due to unspecified organism Laterality: bilateral Lung location: unspecified part of lung Qualified Code(s): J18.9 - Pneumonia, unspecified organism Code(s): J18.9 - Pneumonia, unspecified organism Status: Acute Assessment and Plan: As above (7) Witnessed apneic spells: Code(s): R06.81 - Apnea, not elsewhere classified Status: Acute Assessment and Plan: Patient probably has a history of sleep apnea and had witnessed apneic episodes since arrival to the ICU. ABG 7.41/32/63 2L. He refused the BiPAP last night. Check Apnea link (8) Chronic indwelling Pereira cathet
[2021-12-27] MEDS: ERTAPENEM 1 GM/NS 50 ML 1 GM/50 ML BAG IVPB (12:17)
[2021-12-27 16:45] LABS: Hemoglobin 7.8 g/dL (14.0-18.0)
[2021-12-27] MEDS: EUCERIN CREAM 120 GM JAR 1 APPLIC TOPICAL (17:23)
[2021-12-27 18:21] LABS: Folic Acid > 20.0 ng/mL (2.76->20)
[2021-12-27 18:33] LABS: IFOB Positive Control Positive; Immunochemical Fecal Occult Bl Negative (N)
[2021-12-27] MEDS: ATORVASTATIN 10 MG TABLET PO (21:52)
[2021-12-27 23:07] LABS: Hematocrit 23.1 % (42.0-52.0); Hemoglobin 7.5 g/dL (14.0-18.0)
--- NOTE | 2021-12-27 23:54 | PCRCNOTE ---
0200 Neb tx held due to patient on ApneaLink / sleep study.
[2021-12-28] VITALS (16 sets, daily range): BP systolic 115–140; BP diastolic 43–62; PULSE 70–89; RESP 10–20; TEMP 36.6–36.7; O2SAT 88–98
[2021-12-28 05:20] LABS: Basophils Absolute Auto 0.1 K/mm3 (0.0-0.1); Basophils Percent Auto 0.6 % (0.2-1.2); Eosinophils Absolute Auto 0.7 K/mm3 (0-0.3); Eosinophils Percent Auto 7.7 % (0-4.4); Hematocrit 24.3 % (42.0-52.0); Hemoglobin 7.9 g/dL (14.0-18.0); Immature Granulocyte Absolute 0.04 K/mm3 (0.00-0.031); Immature Granulocyte Percent A 0.5 % (0-0.5); Lymphocytes Absolute Auto 1.09 K/mm3 (0.9-3.2); Lymphocytes Percent Auto 12.7 % (18.3-44.2); Mean Corpuscular HGB Conc 32.5 g/dl (32-36); Mean Corpuscular Hemoglobin 27.6 pg (26-34); Mean Platelet Volume 9.5 fl (7.4-10.4); Monocytes Absolute Auto 0.8 K/mm3 (0.1-0.6); Monocytes Percent Auto 8.9 % (2.6-8.5); Neutrophils Percent Auto 69.6 % (45.5-73.1); Platelet Count Result 138 k/mm3 (150-375); Red Blood Count 2.86 M/mm3 (4.6-6.20); White Blood Count 8.6 K/mm3 (4.5-10.0)
[2021-12-28 05:32] LABS: Alanine Aminotransferase 57 U/L (6-50); Albumin Level 3.2 g/dL (3.5-5.1); Alkaline Phosphatase 269 U/L (38-126); Anion Gap 8 mmol/L (8-16); Aspartate Amino Transferase 42 U/L (17-59); Bilirubin,Total 0.3 mg/dL (0.2-1.3); Blood Urea Nitrogen 45 mg/dL (9-20); Calcium 7.8 mg/dL (8.4-10.2); Carbon Dioxide 21 mmol/L (22-30); Chloride 104 mmol/L (98-107); Estimated CRCL calculation 50 ml/min; Estimated Glomerular Filt Rate 35; Glucose 100 mg/dL (65-110); Magnesium 1.6 mg/dL (1.6-2.3); Potassium 4.3 mmol/L (3.4-5.0); Sodium 133 mmol/L (137-145)
[2021-12-28] MEDS: dilTIAZem HCL 30 MG TABLET PO ×3 (06:01→20:07)
[2021-12-28] MEDS: LEVOTHYROXINE SODIUM 25 MCG TABLET PO (06:01)
[2021-12-28] MEDS: GABAPENTIN 400 MG CAPSULE PO ×3 (08:57→17:47)
[2021-12-28] MEDS: BACLOFEN 10 MG TABLET PO ×2 (08:57→17:47)
[2021-12-28] MEDS: FLUTICASONE PROPIONATE 0.05% NA SPR 16 GM BTL (*BKC) 1 SPRAY NASAL (08:57)
[2021-12-28] MEDS: APIXABAN 2.5 MG TABLET PO ×2 (08:58→17:47)
[2021-12-28] MEDS: guaiFENesin 12 HR 600 MG TABCR PO ×2 (08:58→20:07)
[2021-12-28] MEDS: PANTOPRAZOLE 40 MG TABLET PO (08:58)
[2021-12-28] MEDS: SIMETHICONE 80 MG TAB.CHEW PO (08:58)
[2021-12-28] MEDS: EUCERIN CREAM 120 GM JAR 1 APPLIC TOPICAL (08:58)
[2021-12-28] MEDS: FERROUS SULFATE 324 MG TABLET PO (08:58)
[2021-12-28] MEDS: PREGABALIN (*CRX) 75 MG CAPSULE PO ×3 (09:01→17:47)
[2021-12-28] MEDS: ALBUTEROL SULFATE NEB 2.5 MG/3 ML INH 5 MG INHALATION ×2 (09:58→14:03)
[2021-12-28] MEDS: IPRATROPIUM BR 0.02% INH SOLN 0.5 MG/2.5 ML VIAL INHALATION ×2 (09:58→14:03)
[2021-12-28] MEDS: ERTAPENEM 1 GM/NS 50 ML 1 GM/50 ML BAG IVPB (12:55)
--- NOTE | 2021-12-28 15:45 | PM.IMPN ---
Progress Note: A&P Assessment and Plan (1) Severe sepsis: Code(s): A41.9 - Sepsis, unspecified organism; R65.20 - Severe sepsis without septic shock Status: Acute Assessment and Plan: Sepsis criteria met on admission with tachypnea, leukocytosis, lactic acidosis, metabolic encephalopathy, hyperbilirubinemia, and acute on chronic kidney injury related to complicated UTI. Cannot completely rule out underlying pneumonia but felt less likely since CT of the abdomen showing mostly atelectasis. On room air. Patient started on antibiotic therapy with Rocephin, azithromycin and vancomycin. Patient's Pereira catheter was changed in the ER. Patient received adequate IV fluid hydration. LFTs were elevated related to sepsis syndrome and are trending down. BCx growing Enterococcus faecalis (1of2); sensitivities are pending. Suspect this is real from the urine source given the sepsis and chronic Pereira (even though UCx growing ESBL EColi). Repeat BCx NGTD. UCx growing ESBL EColi. No fevers. WBC normal now. Changed to Ertapenem Day 2. Continue Vanco Day 3. Check Echo (2) Elevated troponin: Code(s): R77.8 - Other specified abnormalities of plasma proteins Status: Acute Assessment and Plan: The patient does have elevated troponin to 0.143 likely secondary to strain from acute sepsis. EKG showing no acute ST-T wave changes. Cardiac event less likely given patient denies chest pain and no evidence of cardiac arrhythmia. Continue medical management. (3) UTI (urinary tract infection) due to urinary indwelling catheter: Qualifiers: Encounter type: initial encounter Indwelling urinary catheter type: indwelling urethral catheter Qualified Code(s): T83.511A - Infection and inflammatory reaction due to indwelling urethral catheter, initial encounter; N39.0 - Urinary tract infection, site not specified Code(s): T83.511A - Infection and inflammatory reaction due to indwelling urethral catheter, initial encounter; N39.0 - Urinary tract infection, site not specified Status: Acute Assessment and Plan: Complicated UTI. As above (4) Acute on chronic renal failure: Qualifiers: Acute renal failure type: with acute tubular necrosis Chronic kidney disease stage: stage 3 (moderate) Chronic kidney disease stage 3 subtype: unspecified whether 3a or 3b Qualified Code(s): N17.0 - Acute kidney failure with tubular necrosis; N18.30 - Chronic kidney disease, stage 3 unspecified Code(s): N17.9 - Acute kidney failure, unspecified; N18.9 - Chronic kidney disease, unspecified Status: Acute Assessment and Plan: Patient has acute on chronic kidney injury due to a combination of obstructive uropathy and severe sepsis. Cr was 3.1 on admission but improved since resolution of the obstruction. Baseline 1.7-2.5. The patient has had good urine output since admission. Creatinine down to 1.9. Continue to follow off IV fluids. (5) Metabolic encephalopathy: Code(s): G93.41 - Metabolic encephalopathy Status: Acute Assessment and Plan: Metabolic encephalopathy. Patient went unresponsive on arrival to the ICU. Patient was difficult to arouse. Probably related to sepsis and/or OLIVER. B12, folate and TSH levels normal. Symptoms resolved. Will continue to monitor. (6) Pneumonia: Qualifiers: Pneumonia type: due to unspecified organism Laterality: bilateral Lung location: unspecified part of lung Qualified Code(s): J18.9 - Pneumonia, unspecified organism Code(s): J18.9 - Pneumonia, unspecified organism Status: Acute Assessment and Plan: As above (7) Witnessed apneic spells: Code(s): R06.81 - Apnea, not elsewhere classified Status: Acute Assessment and Plan: Patient probably has a history of sleep apnea and had witnessed apneic episodes since arrival to the ICU. ABG 7.41/32/63 2L. Apnea link inconclusive. 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
[2021-12-28 19:46] LABS: Vancomycin Trough 14.7 ug/mL (10.0-20.0)
[2021-12-28] MEDS: ATORVASTATIN 10 MG TABLET PO (20:07)
[2021-12-29] VITALS (17 sets, daily range): BP systolic 125–142; BP diastolic 48–56; PULSE 68–79; RESP 11–20; TEMP 36.6–36.9; O2SAT 89–98
[2021-12-29 04:36] LABS: Basophils Percent Auto 0.5 % (0.2-1.2); Eosinophils Percent Auto 12.9 % (0-4.4); Hemoglobin 7.7 g/dL (14.0-18.0); Immature Granulocyte Absolute 0.03 K/mm3 (0.00-0.031); Immature Granulocyte Percent A 0.4 % (0-0.5); Lymphocytes Absolute Auto 1.03 K/mm3 (0.9-3.2); Lymphocytes Percent Auto 13.3 % (18.3-44.2); Mean Corpuscular HGB Conc 33.5 g/dl (32-36); Mean Corpuscular Hemoglobin 27.8 pg (26-34); Mean Platelet Volume 9.3 fl (7.4-10.4); Monocytes Absolute Auto 0.7 K/mm3 (0.1-0.6); Monocytes Percent Auto 9.6 % (2.6-8.5); Neutrophils Absolute Auto 4.9 K/mm3 (1.3-6.7); Neutrophils Percent Auto 63.3 % (45.5-73.1); Platelet Count Result 147 k/mm3 (150-375); Red Blood Count 2.77 M/mm3 (4.6-6.20); Red Cell Distribution Width 15.7 % (11.5-14.5); White Blood Count 7.7 K/mm3 (4.5-10.0)
[2021-12-29 04:46] LABS: Alanine Aminotransferase 47 U/L (6-50); Albumin Level 3.2 g/dL (3.5-5.1); Alkaline Phosphatase 318 U/L (38-126); Anion Gap 7 mmol/L (8-16); Aspartate Amino Transferase 33 U/L (17-59); Bilirubin,Total 0.3 mg/dL (0.2-1.3); Blood Urea Nitrogen 39 mg/dL (9-20); Calcium 7.8 mg/dL (8.4-10.2); Carbon Dioxide 23 mmol/L (22-30); Chloride 102 mmol/L (98-107); Estimated CRCL calculation 55 ml/min; Estimated Glomerular Filt Rate 40; Glucose 108 mg/dL (65-110); Magnesium 1.5 mg/dL (1.6-2.3); Potassium 4.5 mmol/L (3.4-5.0); Sodium 132 mmol/L (137-145)
[2021-12-29] MEDS: LEVOTHYROXINE SODIUM 25 MCG TABLET PO (06:32)
[2021-12-29] MEDS: dilTIAZem HCL 30 MG TABLET PO ×3 (06:32→21:21)
[2021-12-29] MEDS: FLUTICASONE PROPIONATE 0.05% NA SPR 16 GM BTL (*BKC) 1 SPRAY NASAL (09:12)
[2021-12-29] MEDS: BACLOFEN 10 MG TABLET PO ×2 (09:12→16:52)
[2021-12-29] MEDS: APIXABAN 2.5 MG TABLET PO ×2 (09:12→16:52)
[2021-12-29] MEDS: ASCORBIC ACID 500 MG TABLET PO (09:12)
[2021-12-29] MEDS: guaiFENesin 12 HR 600 MG TABCR PO ×2 (09:13→21:21)
[2021-12-29] MEDS: EUCERIN CREAM 120 GM JAR 1 APPLIC TOPICAL (09:13)
[2021-12-29] MEDS: PANTOPRAZOLE 40 MG TABLET PO (09:13)
[2021-12-29] MEDS: PREGABALIN (*CRX) 75 MG CAPSULE PO ×3 (09:13→16:52)
[2021-12-29] MEDS: SIMETHICONE 80 MG TAB.CHEW PO (09:13)
[2021-12-29] MEDS: GABAPENTIN 400 MG CAPSULE PO ×3 (09:13→16:52)
[2021-12-29] MEDS: UMECLIDINIUM/VILANTEROL 62.5-25 MCG ELLIPTA 1 PUFF INHALATION (09:14)
--- NOTE | 2021-12-29 09:27 | PM.IMPN ---
Progress Note: A&P Assessment and Plan (1) Severe sepsis: Code(s): A41.9 - Sepsis, unspecified organism; R65.20 - Severe sepsis without septic shock Status: Acute Assessment and Plan: Sepsis criteria met on admission with tachypnea, leukocytosis, lactic acidosis, metabolic encephalopathy, hyperbilirubinemia, and acute on chronic kidney injury related to complicated UTI. Cannot completely rule out underlying pneumonia but felt less likely since CT of the abdomen showing mostly atelectasis. Patient was started on antibiotic therapy with Rocephin, azithromycin and vancomycin. Patient's Pereira catheter was changed in the ER. Patient received adequate IV fluid hydration. LFTs were elevated related to sepsis syndrome and are down to normal BCx growing Enterococcus faecalis (1of2); sensitive to Amp/Vanco. Suspect this is real from the urine source given the sepsis and chronic Pereria (even though UCx growing ESBL EColi). Repeat BCx NGTD. UCx growing ESBL EColi. No fevers. WBC normal now but with eosinophilia (related to abx?). Continue Ertapenem Day 3, Vanco Day 5. Echo ordered. Check CXR. (2) CHF (congestive heart failure): Code(s): I50.9 - Heart failure, unspecified Status: Acute Assessment and Plan: Wheezing with cough but doubt PNA. More likely pulm edema. Not on O2. Will resume Albuterol nebs but check CXR. Resume Lasix today. May use IV Lasix if pulmonary edema noted. (3) Elevated troponin: Code(s): R77.8 - Other specified abnormalities of plasma proteins Status: Acute Assessment and Plan: The patient does have elevated troponin to 0.143 likely secondary to strain from acute sepsis. EKG showing no acute ST-T wave changes. Cardiac event less likely given patient denies chest pain and no evidence of cardiac arrhythmia. Continue medical management. (4) UTI (urinary tract infection) due to urinary indwelling catheter: Qualifiers: Encounter type: initial encounter Indwelling urinary catheter type: indwelling urethral catheter Qualified Code(s): T83.511A - Infection and inflammatory reaction due to indwelling urethral catheter, initial encounter; N39.0 - Urinary tract infection, site not specified Code(s): T83.511A - Infection and inflammatory reaction due to indwelling urethral catheter, initial encounter; N39.0 - Urinary tract infection, site not specified Status: Acute Assessment and Plan: Complicated UTI. As above (5) Acute on chronic renal failure: Qualifiers: Acute renal failure type: with acute tubular necrosis Chronic kidney disease stage: stage 3 (moderate) Chronic kidney disease stage 3 subtype: unspecified whether 3a or 3b Qualified Code(s): N17.0 - Acute kidney failure with tubular necrosis; N18.30 - Chronic kidney disease, stage 3 unspecified Code(s): N17.9 - Acute kidney failure, unspecified; N18.9 - Chronic kidney disease, unspecified Status: Acute Assessment and Plan: Patient has acute on chronic kidney injury due to a combination of obstructive uropathy and severe sepsis. Cr was 3.1 on admission but improved since resolution of the obstruction. Baseline 1.7-2.5. The patient has had good urine output since admission. Creatinine down to 1.7. OLIVER resolved. (6) Anemia: Code(s): D64.9 - Anemia, unspecified Status: Acute Assessment and Plan: Appears to have a chronic anemia. Hemoglobin was 10.1 on admission but has trended down to 7.5. B12/folate normal. No evidence of acute blood loss. Probably related to the IV fluids and fluids from his IV medications. Iron studies are more consistent with anemia chronic disease but STR pending. Stool guaiac negative. Hgb low but stable. Continue to follow. Transfuse as necessary. (7) Metabolic encephalopathy: Code(s): G93.41 - Metabolic encephalopathy Status: Acute Assessment and Plan: Metabolic encephalopathy. Patient
[2021-12-29] MEDS: ALBUTEROL SULFATE NEB 2.5 MG/3 ML INH INHALATION ×3 (09:57→20:22)
[2021-12-29] MEDS: ERTAPENEM 1 GM/NS 50 ML 1 GM/50 ML BAG IVPB (12:47)
[2021-12-29] MEDS: FUROSEMIDE INJ 40 MG/4 ML VIAL IV PUSH (20:40)
[2021-12-29] MEDS: ATORVASTATIN 10 MG TABLET PO (21:21)
[2021-12-30] VITALS (24 sets, daily range): BP systolic 129–154; BP diastolic 44–79; PULSE 72–89; RESP 10–20; TEMP 36.6–36.9; O2SAT 90–98
--- NOTE | 2021-12-30 | ECHO_ITS ---
Patient Info Name: Bob Simmons Age: 71 years : 1950 Gender: Male Ht: 75 in Wt: 328 lbs BSA: 2.86 m2 HR: 78 bpm BP: 138 / 49 mmHg Heart Rhythm: Sinus Rhythm Exam Date: 12/30/2021 7:41 AM Exam Location: [facility] Patient Status: Inpatient Admit Date: 12/26/2021 Staff Ordering Physician: Tevin Celaya MD Full Fashioned Garment Knitter: Rory Shankar, LUIS ACS, RT Attending Provider: Sarthak Cotter MD Exam Type: CA echo doppler color flow Study Info Indications I50.9 - Heart failure, unspecified Complete two-dimensional, color flow and Doppler transthoracic echocardiogram is performed. Summary 1. Complete two-dimensional, color flow and Doppler transthoracic echocardiogram is performed. 2. The left ventricular diastolic function is grade I diastolic dysfunction. 3. Left ventricular systolic function is normal, estimated at 55-60%. 4. No valvular vegetations were identified. Left Ventricle Left ventricular chamber dimension is normal. Left ventricular systolic function is normal, estimated at 55-60%. The left ventricular diastolic function is grade I diastolic dysfunction. Right Ventricle Right ventricular chamber dimension is normal. Left Atria Left atrial chamber dimension is normal. Right Atria Right atrial chamber dimension is normal. Aortic Valve The aortic valve is trileaflet. There is mild aortic valve sclerosis. No aortic valve vegetation visualized. Pulmonic Valve The pulmonic valve is not well visualized. Mitral Valve The mitral valve has normal leaflets. No mitral valve vegetation visualized. Tricuspid Valve The tricuspid valve leaflets are normal. No tricuspid valve vegetation visualized. Pericardium/Pleural The pericardium appears normal. Aorta The aortic root size at the sinus of Valsalva is normal. Left Ventricular Outflow Tract Name Value Normal LVOT 2D LVOT Diameter 2.4 cm LVOT Doppler LVOT Peak Gradient 3 mmHg LVOT Mean Gradient 2 mmHg LVOT VTI 18 cm LVOT VTI/AV VTI Ratio 0.8 LVOT Stroke Volume 82 ml LVOT CO 6.3 l/min LVOT CI 2.2 l/min/m2 Mitral Valve Name Value Normal MV Doppler MV Decel Dewey 332 cm/s2 MV PHT 71 ms MV Area (PHT) 3.1 cm2 4.0-5.0 MV Diastolic Function MV E Peak Velocity 81 cm/s MV A Peak Velocity 95 cm/s MV E/A 0.9 MV Decel Time 243 ms MV Annular TDI --------
[2021-12-30] MEDS: ALBUTEROL SULFATE NEB 2.5 MG/3 ML INH INHALATION ×4 (02:30→20:52)
[2021-12-30 04:31] LABS: Basophils Absolute Auto 0.1 K/mm3 (0.0-0.1); Basophils Percent Auto 0.6 % (0.2-1.2); Eosinophils Absolute Auto 0.9 K/mm3 (0-0.3); Eosinophils Percent Auto 11.1 % (0-4.4); Hematocrit 24.5 % (42.0-52.0); Hemoglobin 7.9 g/dL (14.0-18.0); Immature Granulocyte Absolute 0.02 K/mm3 (0.00-0.031); Immature Granulocyte Percent A 0.2 % (0-0.5); Lymphocytes Absolute Auto 1.15 K/mm3 (0.9-3.2); Lymphocytes Percent Auto 13.7 % (18.3-44.2); Mean Corpuscular HGB Conc 32.2 g/dl (32-36); Mean Corpuscular Hemoglobin 27.2 pg (26-34); Mean Corpuscular Volume 84.5 fl (80-100); Mean Platelet Volume 9.7 fl (7.4-10.4); Monocytes Absolute Auto 0.7 K/mm3 (0.1-0.6); Monocytes Percent Auto 8.3 % (2.6-8.5); Neutrophils Absolute Auto 5.6 K/mm3 (1.3-6.7); Neutrophils Percent Auto 66.1 % (45.5-73.1); Platelet Count Result 170 k/mm3 (150-375); Red Cell Distribution Width 15.7 % (11.5-14.5); White Blood Count 8.4 K/mm3 (4.5-10.0)
[2021-12-30 04:54] LABS: Alanine Aminotransferase 43 U/L (6-50); Albumin Level 3.4 g/dL (3.5-5.1); Alkaline Phosphatase 350 U/L (38-126); Anion Gap 7 mmol/L (8-16); Aspartate Amino Transferase 27 U/L (17-59); Bilirubin,Total 0.3 mg/dL (0.2-1.3); Blood Urea Nitrogen 35 mg/dL (9-20); Calcium 8.1 mg/dL (8.4-10.2); Carbon Dioxide 23 mmol/L (22-30); Chloride 103 mmol/L (98-107); Estimated CRCL calculation 59 ml/min; Estimated Glomerular Filt Rate 43; Glucose 104 mg/dL (65-110); Magnesium 1.5 mg/dL (1.6-2.3); Potassium 4.4 mmol/L (3.4-5.0); Sodium 133 mmol/L (137-145)
[2021-12-30] MEDS: LEVOTHYROXINE SODIUM 25 MCG TABLET PO (05:12)
[2021-12-30] MEDS: dilTIAZem HCL 30 MG TABLET PO ×3 (05:12→20:39)
[2021-12-30] MEDS: APIXABAN 2.5 MG TABLET PO ×2 (08:49→16:57)
[2021-12-30] MEDS: FUROSEMIDE 40 MG TABLET PO (08:49)
[2021-12-30] MEDS: FLUTICASONE PROPIONATE 0.05% NA SPR 16 GM BTL (*BKC) 1 SPRAY NASAL (08:49)
[2021-12-30] MEDS: FERROUS SULFATE 324 MG TABLET PO (08:49)
[2021-12-30] MEDS: BACLOFEN 10 MG TABLET PO ×2 (08:49→16:57)
[2021-12-30] MEDS: ASCORBIC ACID 500 MG TABLET PO (08:49)
[2021-12-30] MEDS: MULTIVITAMINS /C LUTEIN (CENTRUM SILVER) TABLET *BKC 1 TAB PO (08:50)
[2021-12-30] MEDS: PREGABALIN (*CRX) 75 MG CAPSULE PO ×3 (08:50→16:57)
[2021-12-30] MEDS: guaiFENesin 12 HR 600 MG TABCR PO ×2 (08:50→20:39)
[2021-12-30] MEDS: SIMETHICONE 80 MG TAB.CHEW PO (08:50)
[2021-12-30] MEDS: GABAPENTIN 400 MG CAPSULE PO ×3 (08:50→16:57)
[2021-12-30] MEDS: PANTOPRAZOLE 40 MG TABLET PO (08:50)
[2021-12-30] MEDS: UMECLIDINIUM/VILANTEROL 62.5-25 MCG ELLIPTA 1 PUFF INHALATION (08:50)
[2021-12-30] MEDS: MAGNESIUM SULF 2 GM/WATER 50ML 2 GM/50 ML BAG IVPB (08:53)
[2021-12-30] MEDS: EUCERIN CREAM 120 GM JAR 1 APPLIC TOPICAL (08:59)
[2021-12-30] MEDS: ERTAPENEM 1 GM/NS 50 ML 1 GM/50 ML BAG IVPB (13:17)
[2021-12-30] MEDS: LIDOCAINE HCL 1% LOCAL INJ 2 ML AMPUL 5 ML INFILTRATE (14:35)
--- NOTE | 2021-12-30 16:52 | PM.IMPN ---
Progress Note: A&P Assessment and Plan (1) Severe sepsis: Code(s): A41.9 - Sepsis, unspecified organism; R65.20 - Severe sepsis without septic shock Status: Acute Assessment and Plan: Sepsis criteria met on admission with tachypnea, leukocytosis, lactic acidosis, metabolic encephalopathy, hyperbilirubinemia, and acute on chronic kidney injury related to complicated UTI. Cannot completely rule out underlying pneumonia but felt less likely since CT of the abdomen showing mostly atelectasis. Patient was started on antibiotic therapy with Rocephin, azithromycin and vancomycin. Patient's Pereira catheter was changed in the ER. Patient received adequate IV fluid hydration. LFTs were elevated related to sepsis syndrome and have normalized. BCx growing Enterococcus faecalis (1of2); sensitive to Amp/Vanco. Suspect this is real from the urine given the sepsis and chronic Pereira (even though UCx growing ESBL EColi). CT A/P does not show and acute findings and he is s/p CCY. Repeat BCx NGTD. UCx growing ESBL EColi. No fevers. WBC normal now but with eosinophilia (related to abx?); eosinophilia slightly better. Continue Ertapenem Day 4, Vanco Day 6. Echo showing no obvious vegetations. Place central line; no PICC due to his CKD and hx of requiring HD. Plan discharge in 1-2 days wither on Vanco or Amp depending on what the fdc can do. (2) CHF (congestive heart failure): Code(s): I50.9 - Heart failure, unspecified Status: Acute Assessment and Plan: Wheezing with cough but doubt PNA. CXR yesterday showing interstitial edema. Good UOP with Lasix. Repeat CXR today showing worsening pulmonary opacities despite UOP listed as 5.7L today. Continue Albuterol nebs. Continue oral Lasix. Monitor for now. (3) Elevated troponin: Code(s): R77.8 - Other specified abnormalities of plasma proteins Status: Acute Assessment and Plan: The patient does have elevated troponin to 0.143 likely secondary to strain from acute sepsis. EKG showing no acute ST-T wave changes. Cardiac event less likely given patient denies chest pain and no evidence of cardiac arrhythmia. [place] elevated Trop related to sepsis. Continue medical management. (4) UTI (urinary tract infection) due to urinary indwelling catheter: Qualifiers: Encounter type: initial encounter Indwelling urinary catheter type: indwelling urethral catheter Qualified Code(s): T83.511A - Infection and inflammatory reaction due to indwelling urethral catheter, initial encounter; N39.0 - Urinary tract infection, site not specified Code(s): T83.511A - Infection and inflammatory reaction due to indwelling urethral catheter, initial encounter; N39.0 - Urinary tract infection, site not specified Status: Acute Assessment and Plan: Complicated UTI. As above (5) Acute on chronic renal failure: Qualifiers: Acute renal failure type: with acute tubular necrosis Chronic kidney disease stage: stage 3 (moderate) Chronic kidney disease stage 3 subtype: unspecified whether 3a or 3b Qualified Code(s): N17.0 - Acute kidney failure with tubular necrosis; N18.30 - Chronic kidney disease, stage 3 unspecified Code(s): N17.9 - Acute kidney failure, unspecified; N18.9 - Chronic kidney disease, unspecified Status: Acute Assessment and Plan: Patient has acute on chronic kidney injury due to a combination of obstructive uropathy and severe sepsis. Cr was 3.1 on admission but improved since resolution of the obstruction. Baseline 1.7-2.5. The patient has had excellent urine output today. Creatinine down to 1.6. OLIVER resolved. (6) Anemia: Code(s): D64.9 - Anemia, unspecified Status: Acute Assessment and Plan: Appears to have a chronic anemia. Hemoglobin was 10.1 on admission but has trended down to 7.5. B12/folate normal. No evidence of acute blood loss. Iron studies are more consistent with anemia ch
[2021-12-30] MEDS: CENTRAL LINE FLUSH 10 ML IV PUSH ×2 (16:59→20:39)
[2021-12-30] MEDS: ATORVASTATIN 10 MG TABLET PO (20:39)
[2021-12-31 05:20] VITALS: BP 122/46; PULSE 75; RESP 16; TEMP 36.6; O2SAT 97
[2021-12-31] MEDS: dilTIAZem HCL 30 MG TABLET PO ×2 (05:48→13:17)
[2021-12-31] MEDS: LEVOTHYROXINE SODIUM 25 MCG TABLET PO (05:49)
[2021-12-31] MEDS: CENTRAL LINE FLUSH 10 ML IV PUSH ×2 (05:49→13:19)
[2021-12-31 06:00] LABS: Basophils Percent Auto 0.4 % (0.2-1.2); Eosinophils Absolute Auto 1.1 K/mm3 (0-0.3); Eosinophils Percent Auto 10.4 % (0-4.4); Hematocrit 24.9 % (42.0-52.0); Hemoglobin 8.1 g/dL (14.0-18.0); Immature Granulocyte Absolute 0.06 K/mm3 (0.00-0.031); Immature Granulocyte Percent A 0.6 % (0-0.5); Lymphocytes Absolute Auto 1.34 K/mm3 (0.9-3.2); Lymphocytes Percent Auto 13.1 % (18.3-44.2); Mean Corpuscular HGB Conc 32.5 g/dl (32-36); Mean Corpuscular Hemoglobin 27.8 pg (26-34); Mean Corpuscular Volume 85.6 fl (80-100); Mean Platelet Volume 9.6 fl (7.4-10.4); Monocytes Absolute Auto 0.8 K/mm3 (0.1-0.6); Monocytes Percent Auto 7.3 % (2.6-8.5); Neutrophils Percent Auto 68.2 % (45.5-73.1); Platelet Count Result 205 k/mm3 (150-375); Red Blood Count 2.91 M/mm3 (4.6-6.20); Red Cell Distribution Width 15.8 % (11.5-14.5); White Blood Count 10.2 K/mm3 (4.5-10.0)
[2021-12-31 06:11] LABS: Albumin Level 3.5 g/dL (3.5-5.1); Anion Gap 7 mmol/L (8-16); Blood Urea Nitrogen 35 mg/dL (9-20); Calcium 8.1 mg/dL (8.4-10.2); Carbon Dioxide 26 mmol/L (22-30); Chloride 103 mmol/L (98-107); Estimated CRCL calculation 60 ml/min; Estimated Glomerular Filt Rate 46; Glucose 87 mg/dL (65-110); Magnesium 1.6 mg/dL (1.6-2.3); Phosphorus 4.7 mg/dL (2.5-4.5); Potassium 4.6 mmol/L (3.4-5.0); Sodium 136 mmol/L (137-145)
--- NOTE | 2021-12-31 06:35 | PCRCNOTE ---
Patient's 0200 breathing treatment was not given due to pt being on an apnea link.
[2021-12-31 07:40] VITALS: BP 118/50; PULSE 78; RESP 12; TEMP 36.8; O2SAT 96
[2021-12-31 08:20] VITALS: PULSE 84; RESP 22
[2021-12-31] MEDS: UMECLIDINIUM/VILANTEROL 62.5-25 MCG ELLIPTA 1 PUFF INHALATION (08:20)
[2021-12-31] MEDS: ALBUTEROL SULFATE NEB 2.5 MG/3 ML INH INHALATION (08:20)
[2021-12-31 08:22] VITALS: O2SAT 95
[2021-12-31 08:31] VITALS: PULSE 83; RESP 20
[2021-12-31] MEDS: guaiFENesin 12 HR 600 MG TABCR PO (09:43)
[2021-12-31] MEDS: ASCORBIC ACID 500 MG TABLET PO (09:43)
[2021-12-31] MEDS: MAGNESIUM OXIDE 400 MG TABLET PO (09:43)
[2021-12-31] MEDS: EUCERIN CREAM 120 GM JAR 1 APPLIC TOPICAL (09:43)
[2021-12-31] MEDS: PREGABALIN (*CRX) 75 MG CAPSULE PO ×2 (09:43→13:17)
[2021-12-31] MEDS: SIMETHICONE 80 MG TAB.CHEW PO (09:43)
[2021-12-31] MEDS: FLUTICASONE PROPIONATE 0.05% NA SPR 16 GM BTL (*BKC) 1 SPRAY NASAL (09:43)
[2021-12-31] MEDS: MULTIVITAMINS /C LUTEIN (CENTRUM SILVER) TABLET *BKC 1 TAB PO (09:43)
[2021-12-31] MEDS: FUROSEMIDE 40 MG TABLET PO (09:43)
[2021-12-31] MEDS: APIXABAN 2.5 MG TABLET PO (09:43)
[2021-12-31] MEDS: GABAPENTIN 400 MG CAPSULE PO ×2 (09:43→13:17)
[2021-12-31] MEDS: BACLOFEN 10 MG TABLET PO (09:43)
[2021-12-31] MEDS: PANTOPRAZOLE 40 MG TABLET PO (09:43)
--- NOTE | 2021-12-31 09:51 | PM.DS ---
DS: Admitting Diagnosis Discharge Date 12/31/21 Admitting Diagnosis Altered mental status DS: Discharge Diagnosis Discharge Diagnosis (1) Severe sepsis: Code(s): A41.9 - Sepsis, unspecified organism; R65.20 - Severe sepsis without septic shock Status: Acute Assessment and Plan: Sepsis criteria met on admission with tachypnea, leukocytosis, lactic acidosis, metabolic encephalopathy, hyperbilirubinemia, and acute on chronic kidney injury related to complicated UTI. Cannot completely rule out underlying pneumonia but felt less likely since CT of the abdomen showing mostly atelectasis. Patient was started on antibiotic therapy with Rocephin, azithromycin and vancomycin. Patient's Pereira catheter was changed in the ER. Patient received adequate IV fluid hydration. LFTs were elevated related to sepsis syndrome and have normalized. Found to have septicemia. BCx growing Enterococcus faecalis (1of2); sensitive to Amp/Vanco. Suspect this is real from the urine given the sepsis and chronic Pereira (even though UCx growing ESBL EColi). CT A/P does not show any acute findings and he is s/p CCY. Echo showing no obvious vegetations. Repeat BCx NGTD. UCx growing ESBL EColi. No fevers. WBC normal now but with eosinophilia but appears to be more chronic. Plan for discharge today on Ertapenem and Vancomycin. Vanco chosen since fdc could not handle the Ampicillin frequency. (2) CHF (congestive heart failure): Code(s): I50.9 - Heart failure, unspecified Status: Acute Assessment and Plan: Wheezing with cough but doubt PNA. CXR showing interstitial edema. Renal function had improved so Lasix was able to be resumed. Echo showing EF 55-60% with Grade I diastolic dysfunction. [place] he has Acute/Chronic Diastolic CHF. He has good UOP with Lasix and clinically he improved. Oral Lasix resumed. Cumulative I/O -4L. (3) Elevated troponin: Code(s): R77.8 - Other specified abnormalities of plasma proteins Status: Acute Assessment and Plan: The patient does have elevated troponin to 0.143. EKG showing no acute ST-T wave changes. Echo as mentioned above but no wall motion abnormalities. Cardiac event less likely given patient denies chest pain and no evidence of cardiac arrhythmia. [place] elevated Trop secondary to strain from acute sepsis. (4) UTI (urinary tract infection) due to urinary indwelling catheter: Qualifiers: Encounter type: initial encounter Indwelling urinary catheter type: indwelling urethral catheter Qualified Code(s): T83.511A - Infection and inflammatory reaction due to indwelling urethral catheter, initial encounter; N39.0 - Urinary tract infection, site not specified Code(s): T83.511A - Infection and inflammatory reaction due to indwelling urethral catheter, initial encounter; N39.0 - Urinary tract infection, site not specified Status: Acute Assessment and Plan: Complicated UTI. As above (5) Acute on chronic renal failure: Qualifiers: Acute renal failure type: with acute tubular necrosis Chronic kidney disease stage: stage 3 (moderate) Chronic kidney disease stage 3 subtype: unspecified whether 3a or 3b Qualified Code(s): N17.0 - Acute kidney failure with tubular necrosis; N18.30 - Chronic kidney disease, stage 3 unspecified Code(s): N17.9 - Acute kidney failure, unspecified; N18.9 - Chronic kidney disease, unspecified Status: Acute Assessment and Plan: Patient has acute on chronic kidney injury due to a combination of obstructive uropathy and severe sepsis. Cr was 3.1 on admission but improved since resolution of the obstruction. Baseline 1.7-2.5. The patient has had excellent urine output and Creatinine down to 1.5. He tolerated resuming his lasix. [place]IVER resolved. (6) Anemia: Code(s): D64.9 - Anemia, unspecified Status: Acute Assessment and Plan: Appears to have a chronic anemia
[2021-12-31 10:11] LABS: EDCOVIDSCREEN Negative (Negative)
[2021-12-31] MEDS: ERTAPENEM 1 GM/NS 50 ML 1 GM/50 ML BAG IVPB (11:38)
[2021-12-31 11:47] VITALS: BP 127/49; PULSE 79; RESP 12; TEMP 36.8; O2SAT 96
[2021-12-31 15:08] LABS: Soluble Transferrin Receptor 1.28 mg/L (0.76-1.76)
--- NOTE | 2022-01-01 08:52 | PC.NURSE ---
STR is WNL at 1.28. Dr. Celaya aware.
== END 2021-12-31 14:15 | DRG 698 ==
LOC: ANHED 22:33 → ANHICU 22:57
PROVIDERS: Internal Medicine; Admitting Provider Family Medicine; Emergency Provider General Practice; PCP Internal Medicine; Visit Provider Internal Medicine
DX: T83.511A Infection and inflammatory reaction due to indwelling urethral catheter, initial encounter (principal); A41.81 Sepsis due to Enterococcus; R65.20 Severe sepsis without septic shock; G93.41 Metabolic encephalopathy; I50.33 Acute on chronic diastolic (congestive) heart failure; N17.9 Acute kidney failure, unspecified; I13.0 Hypertensive heart and chronic kidney disease with heart failure and stage 1 through stage 4 chronic kidney disease, or unspecified chronic kidney disease; G82.20 Paraplegia, unspecified; N18.9 Chronic kidney disease, unspecified; N39.0 Urinary tract infection, site not specified; B96.20 Unspecified Escherichia coli [E. coli] as the cause of diseases classified elsewhere; Z20.822 Contact with and (suspected) exposure to COVID-19; K21.9 Gastro-esophageal reflux disease without esophagitis; N31.9 Neuromuscular dysfunction of bladder, unspecified; J43.9 Emphysema, unspecified; E55.9 Vitamin D deficiency, unspecified; G62.9 Polyneuropathy, unspecified; I48.91 Unspecified atrial fibrillation; E03.9 Hypothyroidism, unspecified; D72.829 Elevated white blood cell count, unspecified; D63.8 Anemia in other chronic diseases classified elsewhere; G47.30 Sleep apnea, unspecified; Z66 Do not resuscitate; Z79.01 Long term (current) use of anticoagulants; Z90.49 Acquired absence of other specified parts of digestive tract; Z89.412 Acquired absence of left great toe; Z86.16 Personal history of COVID-19; Z87.891 Personal history of nicotine dependence; E66.01 Morbid (severe) obesity due to excess calories; Z68.37 Body mass index [BMI] 37.0-37.9, adult
CPT/HCPCS: 36415; 36556; 36600; 71045; 74176; 80053; 80069; 80074; 80202; 81001; 82140; 82274; 82375; 82607; 82728; 82746; 82805; 82948; 83050; 83540; 83550; 83605; 83735; 83880; 84100; 84238; 84443; 84484; 85014; 85018; 85025; 85610; 85730; 86140; 87040; 87077; 87086; 87088; 87186; 87426; 93005; 93306; 94640; 94660; 94762; 96361; 96365; 96366; 96367; 99291; A9270; C1751; C9803; G0378; J0456; J0696; J1335; J1940; J3370; J3475; J7030; J7040; U0003; U0005

== ENCOUNTER 2022-01-02 14:07 | Inpatient (IN) | payer MEDICARE, BC, MEDICAID, SELFPAY ==
[2022-01-02] VITALS (24 sets, daily range): BP systolic 96–149; BP diastolic 49–70; PULSE 76–99; RESP 0–24; TEMP 36.7–38.3; O2SAT 95–100; BMI 37.8
--- NOTE | ~2022-01-02 | US_ITS ---
EXAMINATION: US carotid duplex BI DATE: 01/06/2022 09:14 INDICATION: Encephalopathy. TECHNIQUE: Grayscale, color Doppler, and pulsed Doppler images of the cervical carotid arteries were obtained. The degree of vessel stenosis is placed in one of the following categories: normal, <50%, 5 0-69%, >=70% but less than near-occlusion, near-occlusion, or total occlusion. Note that percent sten osis relative to normal distal artery lumen diameter is indirectly measured from velocity measurement s as described by Jesus, et al. Radiology 2003; 229:340-346. COMPARISON: None. FINDINGS: RIGHT: The right common carotid artery (CCA) peak systolic velocity (PSV) is 145 cm/s. The right internal ca rotid artery (ICA) PSV is 210 cm/s. The right ICA end-diastolic velocity (EDV) is 26 cm/s. The right ICA/CCA PSV ratio is 1.6. Grayscale and color Doppler images yield an estimate of <50% diameter reduc tion from plaque in the ICA. There is antegrade flow in the right vertebral artery. LEFT: The left CCA PSV is 136 cm/s. The left ICA PSV is 200 cm/s. The left ICA EDV is 26 cm/s. The left ICA /CCA PSV ratio is 1.6. Grayscale and color Doppler images yield an estimate of <50% diameter reductio n from plaque in the ICA. There is antegrade flow in the left vertebral artery. IMPRESSION: 1. <50% stenosis in the right internal carotid artery. 2. <50% stenosis in the left internal carotid artery. Reviewed, dictated and finalized at location A.
--- NOTE | ~2022-01-02 | US_ITS ---
US renal BI DATE: 01/05/2022 13:02 INDICATION: Elevated serum creatinine level TECHNIQUE: Real-time imaging of kidneys and urinary bladder COMPARISON: 12/25/2021 CT abdomen pelvis FINDINGS: Right kidney measures approximately 11.3 cm length, left kidney 12.6 cm. Approximately 8.9 x 7.1 x 7.7 cm peripheral calcified lesion at the lower pole of the left kidney, li tina a calcified cyst. No renal mass lesion is noted otherwise. No hydronephrosis. The urinary bladder is evacuated, Pereira catheter, the bladder not well-demonstrated. IMPRESSION: Large calcified lower pole left renal cyst No other renal mass lesion or hydronephrosis of either kidney Reviewed, dictated and finalized at Location A. Reviewed, dictated and finalized at location A.
--- NOTE | ~2022-01-02 | XR_ITS ---
EXAMINATION: XR abdomen NG/feed tube insert DATE: 01/02/2022 14:41 INDICATION: Nasogastric tube placement. TECHNIQUE: A supine view of the abdomen was obtained. COMPARISON: CT abdomen and pelvis 12/25/2021 FINDINGS: There is gaseous distention of the stomach. The nasogastric tube tip is in the stomach with proximal side port at the gastroesophageal junction. There is a rim-calcified mass of the left kidne y, likely benign. The lower abdomen is excluded. There are wires in the spine around the posterior el ements at multiple levels. IMPRESSION: 1. Nasogastric tube tip in the stomach with proximal side port at the gastroesophageal junction. Adva ncement 5 cm is recommended. Reviewed, dictated and finalized at location B. IMPRESSION: 1. Nasogastric tube tip in the stomach with proximal side port at the gastroeso phageal junction. Advancement 5 cm is recommended.
--- NOTE | ~2022-01-02 | XR_ITS ---
XR chest ET placement 01/02/2022 14:41 Indication: Respiratory failure Procedure: AP portable chest Comparison: Comparison to multiple prior studies sequentially, with oldest reviewed study dated 04/19. Findings: Cardiomegaly. Endotracheal tube tip 9.3 cm above the rojelio. NG tube in the stomach. There is bilateral airspace disease, most likely edema. No pneumothorax. Left IJ central venous catheter ti p in the SVC. Impression: 1: Cardiomegaly with interstitial edema. Reviewed, dictated and finalized at location A. Impression: 1: Cardiomegaly with interstitial edema.
--- NOTE | ~2022-01-02 | XR_ITS ---
EXAMINATION: XR chest 1V portable DATE: 01/06/2022 05:23 INDICATION: Respiratory failure. Bronchitis. TECHNIQUE: A single frontal view of the chest was obtained. COMPARISON: Chest single view 01/05/2022, chest CT 01/03/2022 FINDINGS: There are airspace opacities in the lower lung zones. There are small pleural effusions. No pneumothorax. The heart size is normal. The endotracheal tube tip is 6.0 cm above the rojelio. The na sogastric tube tip is in the stomach. A left internal jugular central venous catheter is seen with ti p in the superior cavoatrial junction. IMPRESSION: 1. Stable airspace opacities in the lower lung zones, consistent with atelectasis versus pneumonia. 2. Stable small pleural effusions. Reviewed, dictated and finalized at location A. IMPRESSION: 1. Stable airspace opacities in the lower lung zones, consistent with atelectas is versus pneumonia. 2. Stable small pleural effusions.
--- NOTE | ~2022-01-02 | CT_ITS ---
EXAMINATION:CT diagnostic chest wo con DATE: 01/03/2022 09:05 INDICATION: Pneumonia. TECHNIQUE: Computed tomography (CT) of the chest was performed without intravenous contrast. Automate d exposure control and iterative reconstruction technique were employed. The dose-length product (DLP ) was 993.20 mGy-cm. COMPARISON: Chest single view 01/03/2022 FINDINGS: There is mild emphysema. There are small pleural effusions, right worse in left. There is m ild dependent atelectasis in right lower lobe. There is an 8 mm nodule at right major fissure. There is an 8 mm nodule in right upper lobe abutting the pleura. A calcified right lung nodule and calcifie d right hilar lymph nodes are consistent with old granulomatous disease. There is mild atelectasis in left upper lobe. There are airspace opacities in left lower lobe with volume loss, likely atelectasi s. There are nodules in the thyroid measuring up to 3.1 cm on the left. The endotracheal tube tip is in the trachea. Cardiomegaly is noted. There are coronary artery calcifications. No pericardial effus ion. A left internal jugular central venous catheter is seen with tip in the superior vena cava. The nasogastric tube tip is beyond the inferior margin of the scan, but at least to the stomach. There is mild splenomegaly. Calcifications in the spleen are consistent with old granulomatous disease. There is wire fixation of the posterior elements in thoracolumbar spine. There is chronic height loss of m ultiple lower thoracic vertebral bodies IMPRESSION: 1. Small pleural effusions. 2. Mild emphysema. 3. Two 8 mm nodules in right lung, which may be infection or atelectasis or less likely malignancy. N oncontrast chest CT is recommended in 3 months. 4. Multinodular goiter. Consider thyroid ultrasound for risk stratification. 5. Mild splenomegaly. Reviewed, dictated and finalized at location D. IMPRESSION: 1. Small pleural effusions. 2. Mild emphysema. 3. Two 8 mm nodules in right lung, which may be infection or atelectasis or les s likely malignancy. Noncontrast chest CT is recommended in 3 months. 4. Multinodular goiter. Consider thyroid ultrasound for risk stratification. 5. Mild splenomegaly.
--- NOTE | ~2022-01-02 | XR_ITS ---
EXAMINATION: XR chest 1V portable DATE: 01/03/2022 08:17 INDICATION: Acute respiratory failure TECHNIQUE: frontal view of the chest was obtained. COMPARISON: Chest radiograph dated 01/02/2022 FINDINGS: Endotracheal tube tip 6.4 cm above the rojelio. Nasogastric tube extends below the left hemidiaphragm with distal tip collimated off the study. Left internal jugular central venous catheter with distal tip at the midsuperior vena cava. Airspace opacities in the bilateral lower lung zones. No pleural ef fusion or pneumothorax. The cardiomediastinal silhouette is normal. Cerclage wires about the bilatera l lamina at T10-T11. IMPRESSION: 1. Interval increase in opacities in the bilateral lower lung zones which could represent worsening p neumonia, pulmonary edema, atelectasis or some combination thereof. Reviewed, dictated and finalized at location A. IMPRESSION: 1. Interval increase in opacities in the bilateral lower lung zones which could represent worsening pneumonia, pulmonary edema, atelectasis or some combinatio n thereof.
--- NOTE | ~2022-01-02 | CT_ITS ---
EXAMINATION: CT brain wo con DATE: 01/05/2022 13:28 INDICATION: Altered mental state, transient alteration of awareness. Encephalopathy. TECHNIQUE: Computed tomography (CT) of the head was performed without intravenous contrast. The mA wa s adjusted according to patient size. Iterative reconstruction technique was employed. Exam dose: 68 1.00 mGy-cm total exam DLP. COMPARISON: None FINDINGS: There is moderately prominent cerebral volume loss. No intracranial mass lesion or hemorrha ge or cerebrovascular accident is noted. No midline shift or mass effect. Vertebral and carotid siphon internal carotid artery calcifications. There is nonspecific diminished attenuation of the cerebral white matter, likely due to chronic small vessel ischemic changes. No subdural or epidural hematoma is detected. No fracture or bone destruction of the cranial vault. IMPRESSION: Moderate cerebral volume loss Cerebral atherosclerosis and chronic small vessel ischemic changes of the cerebral white matter Reviewed, dictated and finalized at [facility]. Reviewed, dictated and finalized at location A. IMPRESSION: Moderate cerebral volume loss Cerebral atherosclerosis and chronic small vessel ischemic changes of the cereb ral white matter
--- NOTE | ~2022-01-02 | XR_ITS ---
XR chest 1V portable DATE: 01/05/2022 05:41 INDICATION: Respiratory failure, bronchitis. Pneumonia. TECHNIQUE: Upright portable AP chest on 01/05/2022 at 0534 hours COMPARISON: Portable AP chest on 01/04/2022 at 0505 hours FINDINGS: ET tube tip approximately 5.2 cm above rojelio. NG tube in stomach. Left internal jugular ce ntral venous catheter tip overlies the superior cavoatrial junction approximately. Bilateral lower lung infiltrate and/atelectasis and mild pleural effusions are suggested. Cardiomegal y. Aortic arch calcification. IMPRESSION: Bibasilar infiltrate and/atelectasis, increased since 01/04/2022 Reviewed, dictated and finalized at location A.
--- NOTE | ~2022-01-02 | XR_ITS ---
XR chest 1V portable DATE: 01/04/2022 05:33 INDICATION: Respiratory failure. Bronchitis. COPD. Pneumonia. TECHNIQUE: Portable AP chest on 01/04/2022 at 0505 hours COMPARISON: 01/03/2022 CT chest 01/03/2022 portable AP chest FINDINGS: ET tube in satisfactory position 3.4 cm above rojelio. NG tube in stomach. Left internal jugular central venous catheter tip overlies the superior vena cava. Cardiomegaly. There are bilateral lower lung infiltrates and/atelectasis. IMPRESSION: Bilateral lower lung infiltrates and/atelectasis, relatively stable since 01/03/2022 Reviewed, dictated and finalized at location A.
--- NOTE | ~2022-01-02 | XR_ITS ---
EXAMINATION: XR abdomen/kub 1V DATE: 01/09/2022 05:57 INDICATION: Abdominal tenderness. TECHNIQUE: A supine view of the abdomen on 4 radiographs was obtained. COMPARISON: CT abdomen and pelvis 12/25/2021 FINDINGS: There are no dilated loops of bowel. There is a rim calcified mass in left abdomen correlat ing with a kidney mass by CT, likely benign. There is wire fixation of the spine. There is a bipolar left hip hemiarthroplasty. There is internal fixation of right femur. There is a central line tip at superior cavoatrial junction. IMPRESSION: 1. Nonobstructive bowel gas pattern. Reviewed, dictated and finalized at location A.
--- NOTE | ~2022-01-02 | XR_ITS ---
EXAMINATION: XR chest 1V portable DATE: 01/07/2022 05:36 INDICATION: Respiratory failure. TECHNIQUE: A single frontal view of the chest was obtained. COMPARISON: Chest CT 01/03/2022, chest single view 01/06/2022 FINDINGS: There are airspace opacities in the lower lung zones. A calcified right lung nodule and vinny cified right hilar lymph nodes are consistent with old granulomatous disease. There are small pleural effusions. No pneumothorax. Cardiomegaly is noted. A left internal jugular central venous catheter i s seen with tip at the superior cavoatrial junction. IMPRESSION: 1. Stable airspace opacities in the lower lung zones, consistent with atelectasis versus pneumonia. 2. Stable small pleural effusions. 3. Cardiomegaly. Reviewed, dictated and finalized at location A. IMPRESSION: 1. Stable airspace opacities in the lower lung zones, consistent with atelectas is versus pneumonia. 2. Stable small pleural effusions. 3. Cardiomegaly.
--- NOTE | 2022-01-02 14:11 | ECG_ITS ---
Measurements Intervals [place] Rate: 94 P: 68 [place]: 170 QRS: 51 QRSD: 120 T: 42 QT: 332 QTc: 416 Interpretive Statements SINUS RHYTHM WITH OCCASIONAL VENTRICULAR PREMATURE COMPLEXES MODERATE INTRAVENTRICULAR CONDUCTION DELAY [110+ ms QRS DURATION] NONSPECIFIC T-WAVE ABNORMALITY ABNORMALLY ECG COMPARED TO ECG 12/25/2021 15:00:08 T-WAVE ABNORMALITY NOW PRESENT Electronically Signed On 01-02-2022 14:36:33 CDT by Herber Reyna M.D.
[2022-01-02] MEDS: IPRATROPIUM BR 0.02% INH SOLN 0.5 MG/2.5 ML VIAL INHALATION (14:21)
[2022-01-02] MEDS: ALBUTEROL SULFATE NEB 2.5 MG/3 ML INH 5 MG INHALATION (14:21)
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
--- NOTE | 2022-01-02 14:36 | PC.NURSE ---
Daughter Angelita reed POA is out of town and other daughter on her way to er. Wanted a status update and information given but patient has only been here approx 20min.
[2022-01-02 14:39] LABS: Basophils Percent Auto 0.3 % (0.2-1.2); Eosinophils Absolute Auto 0.5 K/mm3 (0-0.3); Eosinophils Percent Auto 4.4 % (0-4.4); Hematocrit 33.6 % (42.0-52.0); Hemoglobin 10.5 g/dL (14.0-18.0); Immature Granulocyte Absolute 0.18 K/mm3 (0.00-0.031); Immature Granulocyte Percent A 1.7 % (0-0.5); Lymphocytes Absolute Auto 0.75 K/mm3 (0.9-3.2); Mean Corpuscular HGB Conc 31.3 g/dl (32-36); Mean Corpuscular Hemoglobin 27.3 pg (26-34); Mean Corpuscular Volume 87.3 fl (80-100); Mean Platelet Volume 9.5 fl (7.4-10.4); Monocytes Absolute Auto 0.6 K/mm3 (0.1-0.6); Monocytes Percent Auto 5.5 % (2.6-8.5); Neutrophils Absolute Auto 8.8 K/mm3 (1.3-6.7); Neutrophils Percent Auto 81.1 % (45.5-73.1); Platelet Count Result 221 k/mm3 (150-375); Red Blood Count 3.85 M/mm3 (4.6-6.20); Red Cell Distribution Width 16.1 % (11.5-14.5); White Blood Count 10.8 K/mm3 (4.5-10.0)
[2022-01-02 14:40] LABS: Appearance Urine Clear (Clear); Bilirubin Urine Negative (Negative); Blood Urine 2+ (Negative); Color Urine Yellow (Yellow); Glucose Urine UA Negative (Negative); Ketones Urine Negative (Negative); Leukocyte Esterase Ur 1+ LEU/UL (Negative); Nitrate Urine Negative (Negative); Protein Urine 2+ mg/dL (Negative); Specific Grav Ur 1.025 (1.001-1.035); Urobilinogen Urine 0.2 mg/dL (<2.0); pH Urine 5.5 (5.0-9.0)
[2022-01-02] MEDS: SODIUM CHLORIDE 0.9% IV 1,000 ML 999 ML IV CONT (14:45)
[2022-01-02 14:49] LABS: Bacteria Urine Trace /hpf; RBC Urine 21-50 /hpf (0-2)
[2022-01-02] MEDS: PROPOFOL IV EMULSION 100 ML 4.5 MG IV CONT (14:49)
[2022-01-02 14:50] LABS: INR 1.4; Prothrombin Time 16.3 Seconds (11.1-14.7)
[2022-01-02 14:50] LABS: Lactic Acid Reflex 0.7 mmol/L (0.7-2.0)
[2022-01-02 14:50] LABS: Alveolar/Arterial O2 Gradient 216.9 mmHg; Base Excess ABG -7.6 mEq/l (+/-2.0); Fractional Inspired Oxygen 90 %; HCO3 ABG 20.4 mEq/l (22.0-26.0); Oxygen Content ABG 14.6 %vol (16.0-22.0); Oxygen Saturation ABG 99.7 % (95.0-100.0); Oxyhemoglobin 98.4 % THb (90.0-100.0); PCO2 ABG 53.8 mmHg (35.0-45.0); PO2 ABG 369.7 mmHg (80.0-100.0); PO2 FiO2 Ratio Arterial Blood 4.11 %; Total Hemoglobin 9.8 g/dL (12.0-18.0)
[2022-01-02 14:51] LABS: Alanine Aminotransferase 53 U/L (6-50); Albumin Level 3.8 g/dL (3.5-5.1); Alkaline Phosphatase 442 U/L (38-126); Anion Gap 7 mmol/L (8-16); Aspartate Amino Transferase 49 U/L (17-59); Bilirubin,Total 0.8 mg/dL (0.2-1.3); Blood Urea Nitrogen 38 mg/dL (9-20); CRP 4.5 mg/dL (<1.0); Calcium 8.1 mg/dL (8.4-10.2); Carbon Dioxide 24 mmol/L (22-30); Chloride 103 mmol/L (98-107); Estimated CRCL calculation 67 ml/min; Estimated Glomerular Filt Rate 50; Glucose 142 mg/dL (65-110); Potassium 4.9 mmol/L (3.4-5.0); Sodium 134 mmol/L (137-145)
[2022-01-02 14:56] LABS: Device VENTILATOR; Modified Allen's Test Pass; Site Drawn LEFT RADIAL; pH ABG 7.197 (7.350-7.450)
[2022-01-02 14:57] LABS: Arterial Blood Gas PEEP 5 cmH2O; Arterial Blood Gas Tidal Volume 520 ml; Arterial Blood Gas Vent Mode CMV; Arterial Blood Gas Ventilator rate 20 /MIN
[2022-01-02 14:59] LABS: Add Urine Microscopic? YES
[2022-01-02 15:01] LABS: Troponin I 0.015 ng/mL (0.000-0.034)
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
--- NOTE | 2022-01-02 16:42 | ADMGEN ---
This patient, Bob Simmons, was admitted to Intensive Care Unit-8. Patient/family oriented to hospital policies and general routines including ID bracelet, bed and alarms, visiting hours, pain management, procedures, bathroom and other care routines, personal items, smoking policy, room service/diet, and visiting hours. Information on how to activate the Rapid Response Team has been discussed. Patient/Family are encouraged to report perceived risks to care and to ask questions if they do not understand what they are told or what they should do.
[2022-01-02] MEDS: PROPOFOL IV EMULSION 100 ML 4.11 MG IV CONT (18:36)
[2022-01-02] MEDS: LACTATED RINGERS 1,000 ML 999 ML IV CONT (18:36)
[2022-01-02] MEDS: ERTAPENEM 1 GM/NS 50 ML 1 GM/50 ML BAG IVPB (18:47)
[2022-01-02] MEDS: ENOXAPARIN 40 MG/0.4 ML SYRINGE SUB-Q (20:02)
[2022-01-02] MEDS: CENTRAL LINE FLUSH 10 ML IV PUSH ×2 (20:02)
[2022-01-02 20:15] LABS: Alveolar/Arterial O2 Gradient 128.1 mmHg; Base Excess ABG -0.8 mEq/l (+/-2.0); Fractional Inspired Oxygen 30 %; HCO3 ABG 21.7 mEq/l (22.0-26.0); Oxygen Content ABG 11.9 %vol (16.0-22.0); Oxygen Saturation ABG 90.4 % (95.0-100.0); Oxyhemoglobin 89.1 % THb (90.0-100.0); PCO2 ABG 28.5 mmHg (35.0-45.0); PO2 ABG 52.3 mmHg (80.0-100.0); PO2 FiO2 Ratio Arterial Blood 1.74 %; Total Hemoglobin 9.5 g/dL (12.0-18.0)
[2022-01-02 20:17] LABS: Device VENTILATOR; Modified Allen's Test Pass; Site Drawn LEFT RADIAL
[2022-01-02 20:18] LABS: Arterial Blood Gas PEEP 5 cmH2O; Arterial Blood Gas Tidal Volume 700 ml; Arterial Blood Gas Vent Mode CMV; Arterial Blood Gas Ventilator rate 22 /MIN
[2022-01-02] MEDS: MINERAL OIL/WHITE PETROLATUM OINTMENT 1 APPLIC EACH EYE (20:22)
[2022-01-02] MEDS: FENTANYL 2,500MCG/NS250ML(*CRX 2,500 MCG/250 ML BAG IV CONT (20:57)
[2022-01-02] MEDS: MIDAZOLAM 100MG/NS 100ML(*CRX) 100 MG/100 ML BAG IV CONT (20:58)
[2022-01-02] MEDS: LACTATED RINGERS 1,000 ML 75 ML IV CONT (21:10)
[2022-01-02] MEDS: APIXABAN 2.5 MG TABLET PO (21:52)
[2022-01-02] MEDS: methylPREDNISolone SOD SUCC 125 MG VIAL 60 MG IV PUSH (23:07)
[2022-01-03] VITALS (47 sets, daily range): BP systolic 100–164; BP diastolic 46–79; PULSE 50–99; RESP 22–25; TEMP 35.8–38.3; O2SAT 92–100; BMI 40.8
[2022-01-03] MEDS: ALBUTEROL SULFATE NEB 2.5 MG/3 ML INH 5 MG INHALATION ×4 (02:00→19:51)
[2022-01-03] MEDS: IPRATROPIUM BR 0.02% INH SOLN 0.5 MG/2.5 ML VIAL INHALATION ×4 (02:00→19:51)
[2022-01-03 05:08] LABS: Base Excess ABG -2.4 mEq/l (+/-2.0); Carboxyhemoglobin 0.1 % THb (0-2.0); HCO3 ABG 20.8 mEq/l (22.0-26.0); Methemoglobin ABG 0.3 %THb (0-1.5); Oxygen Content ABG 19.4 %vol (16.0-22.0); Oxygen Saturation ABG 94.1 % (95.0-100.0); Oxyhemoglobin 92.5 % THb (90.0-100.0); PCO2 ABG 31.7 mmHg (35.0-45.0); PO2 ABG 66.8 mmHg (80.0-100.0); Total Hemoglobin 14.9 g/dL (12.0-18.0); pH ABG 7.434 (7.350-7.450)
[2022-01-03 05:09] LABS: Arterial Blood Gas Ventilator rate 22 /MIN; Device VENTILATOR; Fractional Inspired Oxygen 45 %; Modified Allen's Test Pass; PO2 FiO2 Ratio Arterial Blood 1.48 %; Reduced Hemoglobin 7.1 %THb (0-5.0); Site Drawn LEFT RADIAL
[2022-01-03 05:10] LABS: Arterial Blood Gas PEEP 8 cmH2O; Arterial Blood Gas Tidal Volume 550 ml; Arterial Blood Gas Vent Mode CMV
[2022-01-03 05:53] LABS: Hematocrit 24.2 % (42.0-52.0); Hemoglobin 7.9 g/dL (14.0-18.0); Mean Corpuscular HGB Conc 32.6 g/dl (32-36); Mean Corpuscular Hemoglobin 27.3 pg (26-34); Mean Corpuscular Volume 83.7 fl (80-100); Mean Platelet Volume 9.5 fl (7.4-10.4); Platelet Count Result 217 k/mm3 (150-375); Red Blood Count 2.89 M/mm3 (4.6-6.20); Red Cell Distribution Width 15.7 % (11.5-14.5); White Blood Count 8.5 K/mm3 (4.5-10.0)
[2022-01-03 06:07] LABS: Alanine Aminotransferase 44 U/L (6-50); Albumin Level 3.5 g/dL (3.5-5.1); Alkaline Phosphatase 373 U/L (38-126); Anion Gap 9 mmol/L (8-16); Aspartate Amino Transferase 34 U/L (17-59); Bilirubin,Total 0.5 mg/dL (0.2-1.3); Blood Urea Nitrogen 43 mg/dL (9-20); Carbon Dioxide 22 mmol/L (22-30); Chloride 102 mmol/L (98-107); Estimated CRCL calculation 53 ml/min; Estimated Glomerular Filt Rate 40; Glucose 139 mg/dL (65-110); Magnesium 1.4 mg/dL (1.6-2.3); Potassium 5.2 mmol/L (3.4-5.0); Sodium 133 mmol/L (137-145)
[2022-01-03] MEDS: methylPREDNISolone SOD SUCC 125 MG VIAL 60 MG IV PUSH ×3 (06:36→18:14)
[2022-01-03] MEDS: CENTRAL LINE FLUSH 10 ML IV PUSH ×7 (06:36→20:38)
[2022-01-03] MEDS: LEVOTHYROXINE SODIUM 25 MCG TABLET PO (06:36)
[2022-01-03] MEDS: UMECLIDINIUM/VILANTEROL 62.5-25 MCG ELLIPTA 1 PUFF INHALATION (08:28)
--- NOTE | 2022-01-03 09:09 | WPDCNINT ---
Assessment and Plan Assessment and plan (1) Acute respiratory failure with hypoxia and hypercapnia: Code(s): J96.01 - Acute respiratory failure with hypoxia; J96.02 - Acute respiratory failure with hypercapnia Status: Acute Assessment and Plan: Patient presented with acute shortness of breath, hypoxia, it to be intubated on the field by EMS -chest x-ray on admission showed cardiomegaly with interstitial edema -patient currently on CMV mode of ventilation, peep of 8 and 45% FiO2 -continue bronchodilators, steroids -01/03 CT chest: Small pleural effusions, mild emphysema, Two 8 mm nodules in right lung, which may be infection or atelectasis or less likely malignancy. Noncontrast chest CT is recommended in 3 months. Multinodular goiter. Consider thyroid ultrasound for risk stratification. Mild splenomegaly. Sedated with fentanyl and Versed infusion, maintain RASS of 0 to -2 (2) Acute on chronic diastolic congestive heart failure: Code(s): I50.33 - Acute on chronic diastolic (congestive) heart failure Status: Acute Assessment and Plan: 12/30/2021 echocardiogram showed EF of 55-60%, grade 1 diastolic dysfunction, no valvular vegetations (3) Chronic obstructive pulmonary disease: Code(s): J44.9 - Chronic obstructive pulmonary disease, unspecified Status: Acute Assessment and Plan: Patient with history of COPD, possible bronchitis on this admission, -on a patient also with wheezing, was placed on steroids on admission -continue bronchodilators -add pulmonary court (4) Chronic anemia: Code(s): D64.9 - Anemia, unspecified Status: Acute Assessment and Plan: Patient with history of chronic anemia -recent B12 and folate were normal, no evidence of acute blood loss -iron studies were consistent with anemia of chronic disease -stool guaiac was negative on 12/27/2021 -continue to monitor -will transfuse if hemoglobin < 7.0 (5) Chronic kidney disease: Code(s): N18.9 - Chronic kidney disease, unspecified Status: Acute Assessment and Plan: History of chronic renal disease with baseline creatinine 1.7-2.5 -patient on maintenance IV fluids -could be related to hypoxia, UTI, sepsis -continue to monitor renal function, electrolytes and urine output (6) UTI due to extended-spectrum beta lactamase (ESBL) producing Escherichia coli: Code(s): N39.0 - Urinary tract infection, site not specified; B96.29 - Other Escherichia coli [E. coli] as the cause of diseases classified elsewhere; Z16.12 - Extended spectrum beta lactamase (ESBL) resistance Status: Acute Assessment and Plan: Recent history of UTI, with ESBL E coli on 12/25/2021 patient is on ertapenem through 01/05/2022 (7) Enterococcus faecalis infection: Code(s): B95.2 - Enterococcus as the cause of diseases classified elsewhere Status: Acute Assessment and Plan: Recent blood cultures grew Enterococcus faecalis on 12/25/2021, patient is on vancomycin through 01/07/2022 (8) DVT prophylaxis: Code(s): Z29.9 - Encounter for prophylactic measures, unspecified Status: Acute Assessment and Plan: Continue apixaban for atrial fibrillation, currently in sinus bradycardia Plan Will start tube feeds Monitor urine output Monitor hemoglobin Additional Plan Code status: Full code Critical care time spent: 47 minutes This dictation may have been done utilizing a voice recognition system. Attempts have been made to correct errors. However, there may be uncorrected grammatical, spelling, and recognition errors present. Due to a high probability of clinically significant, life threatening deterioration, the patient required my highest level of preparedness to intervene emergently and I personally spent this critical care time directly and personally managing the patient. This critical care time included obtaining a history; examining the patient; pulse oximetry;
[2022-01-03] MEDS: MAGNESIUM SULF 2 GM/WATER 50ML 2 GM/50 ML BAG IVPB (09:55)
[2022-01-03] MEDS: LACTATED RINGERS 1,000 ML 75 ML IV CONT (09:55)
[2022-01-03] MEDS: MINERAL OIL/WHITE PETROLATUM OINTMENT 1 APPLIC EACH EYE ×2 (09:56→20:37)
[2022-01-03] MEDS: APIXABAN 2.5 MG TABLET PO ×2 (09:56→20:37)
[2022-01-03] MEDS: PANTOPRAZOLE SODIUM IV 40 MG VIAL IV PUSH (09:56)
[2022-01-03] MEDS: FERROUS SULFATE 324 MG TABLET PO (14:35)
[2022-01-03] MEDS: BUDESONIDE RESPULE NEB 0.5 MG/2 ML AMP INHALATION ×2 (14:38→19:51)
--- NOTE | 2022-01-03 16:41 | PM.IMPN ---
Progress Note: A&P Assessment and Plan (1) Acute respiratory failure with hypoxia and hypercapnia: Code(s): J96.01 - Acute respiratory failure with hypoxia; J96.02 - Acute respiratory failure with hypercapnia Status: Acute Assessment and Plan: Presumably due to a combination of COPD and interstitial edema on imaging. Pulmonary embolism seems less likely as he is on apixaban. Currently on mechanical ventilation, being managed by Dr. Guerrero. (2) Acute on chronic diastolic congestive heart failure: Code(s): I50.33 - Acute on chronic diastolic (congestive) heart failure Status: Acute Assessment and Plan: Interstitial edema noted on chest x-ray. Currently on mechanical ventilation. Started on IV diuresis currently on hold due to worsening renal function (3) Chronic obstructive pulmonary disease: Code(s): J44.9 - Chronic obstructive pulmonary disease, unspecified Status: Acute Assessment and Plan: Thick, yellow secretions noted in the ET tube. Sputum culture has been ordered and is pending. (4) Chronic anemia: Code(s): D64.9 - Anemia, unspecified Status: Acute Assessment and Plan: Stable on review of previous labs. (5) Chronic kidney disease: Code(s): N18.9 - Chronic kidney disease, unspecified Status: Acute Assessment and Plan: Creatinine is stable on review of previous labs and will be monitored. (6) Enterococcus faecalis infection: Code(s): B95.2 - Enterococcus as the cause of diseases classified elsewhere Status: Acute Assessment and Plan: Recent hospitalization for ESBL E coli UTI and Enterococcus faecalis bacteremia. Continue vancomycin through 01/07/2022 and ertapenem through 01/05/2022. (7) UTI due to extended-spectrum beta lactamase (ESBL) producing Escherichia coli: Code(s): N39.0 - Urinary tract infection, site not specified; B96.29 - Other Escherichia coli [E. coli] as the cause of diseases classified elsewhere; Z16.12 - Extended spectrum beta lactamase (ESBL) resistance Status: Acute Assessment and Plan: Plan is as detailed above. Subjective Date/time seen: 01/03/22 16:41 Interval history: HPI:This is a 71-year-old male with paraplegia, neurogenic bladder with indwelling Pereira catheter, chronic kidney disease, diastolic congestive heart failure, paroxysmal atrial fibrillation, chronic obstructive pulmonary disease, and hypertension who presented to the emergency department via EMS from [facility] for evaluation of shortness of breath. He is known to the hospitalist service with a recent admission just last week in which he was treated for sepsis related to a complicated urinary tract infection. He was discharged 2 days ago on IV vancomycin for Enterococcus faecalis in 1 of 2 blood cultures. According to his daughter, the patient seemed to be in his usual state of health when he was discharged from the hospital. Last evening he was apparently not as interactive as normal and did not want to eat much dinner. This morning he apparently refused breakfast and staff report that he became increasingly short of breath as the morning went on, eventually prompting a call to emergency services.? At on EMS arrival he was hypoxic with an SpO2 of 83% on room air. He was placed on CPAP however was unable to tolerate that or [id number] and he was subsequently sedated and intubated in the field due to respiratory distress. ABG on arrival showed a pH of 7.197 and a pCO2 of 53.8. Labs did not show any significant deviations from baseline and chest x-ray showed cardiomegaly with interstitial edema. He has been stable in the emergency department and is being transferred to the ICU for further care. 01/03/2022 patient awake an alert on ET tube and mechanical ventilation. Chart reviewed discussed with nursing staff. Patient seen and examined Review of Systems Review of Systems
[2022-01-03] MEDS: ERTAPENEM 1 GM/NS 50 ML 1 GM/50 ML BAG IVPB (18:13)
[2022-01-03 18:51] LABS: IFOB Positive Control Positive; Immunochemical Fecal Occult Bl Negative (N)
[2022-01-04] VITALS (44 sets, daily range): BP systolic 115–154; BP diastolic 48–85; PULSE 51–82; RESP 8–24; TEMP 36.1–36.7; O2SAT 95–100
[2022-01-04] MEDS: LACTATED RINGERS 1,000 ML 75 ML IV CONT ×2 (00:22→12:45)
[2022-01-04] MEDS: methylPREDNISolone SOD SUCC 125 MG VIAL 60 MG IV PUSH ×5 (00:25→23:22)
[2022-01-04] MEDS: MIDAZOLAM 100MG/NS 100ML(*CRX) 100 MG/100 ML BAG IV CONT (01:12)
[2022-01-04] MEDS: IPRATROPIUM BR 0.02% INH SOLN 0.5 MG/2.5 ML VIAL INHALATION ×4 (02:18→20:06)
[2022-01-04] MEDS: ALBUTEROL SULFATE NEB 2.5 MG/3 ML INH 5 MG INHALATION ×4 (02:18→20:06)
[2022-01-04] MEDS: CENTRAL LINE FLUSH 10 ML IV PUSH ×6 (05:11→20:33)
[2022-01-04 05:27] LABS: Eosinophils Percent Auto 0.1 % (0-4.4); Hematocrit 23.2 % (42.0-52.0); Hemoglobin 7.5 g/dL (14.0-18.0); Immature Granulocyte Absolute 0.05 K/mm3 (0.00-0.031); Immature Granulocyte Percent A 0.7 % (0-0.5); Lymphocytes Absolute Auto 0.45 K/mm3 (0.9-3.2); Lymphocytes Percent Auto 6.5 % (18.3-44.2); Mean Corpuscular HGB Conc 32.3 g/dl (32-36); Mean Corpuscular Hemoglobin 27.5 pg (26-34); Mean Platelet Volume 9.9 fl (7.4-10.4); Monocytes Absolute Auto 0.2 K/mm3 (0.1-0.6); Neutrophils Absolute Auto 6.2 K/mm3 (1.3-6.7); Neutrophils Percent Auto 89.7 % (45.5-73.1); Platelet Count Result 213 k/mm3 (150-375); Red Blood Count 2.73 M/mm3 (4.6-6.20); Red Cell Distribution Width 15.1 % (11.5-14.5); White Blood Count 6.9 K/mm3 (4.5-10.0)
[2022-01-04] MEDS: LEVOTHYROXINE SODIUM 25 MCG TABLET PO (05:27)
[2022-01-04 05:37] LABS: Alveolar/Arterial O2 Gradient 125.9 mmHg; Base Excess ABG -3.8 mEq/l (+/-2.0); Carboxyhemoglobin 0.2 % THb (0-2.0); Fractional Inspired Oxygen 35 %; HCO3 ABG 20.7 mEq/l (22.0-26.0); Methemoglobin ABG 0.3 %THb (0-1.5); Oxygen Content ABG 11.9 %vol (16.0-22.0); Oxygen Saturation ABG 96.2 % (95.0-100.0); Oxyhemoglobin 93.8 % THb (90.0-100.0); PCO2 ABG 35.1 mmHg (35.0-45.0); PO2 ABG 82.8 mmHg (80.0-100.0); PO2 FiO2 Ratio Arterial Blood 2.37 %; Reduced Hemoglobin 5.7 %THb (0-5.0); Total Hemoglobin 8.9 g/dL (12.0-18.0); pH ABG 7.389 (7.350-7.450)
[2022-01-04 05:38] LABS: Alanine Aminotransferase 34 U/L (6-50); Albumin Level 3.1 g/dL (3.5-5.1); Alkaline Phosphatase 307 U/L (38-126); Anion Gap 8 mmol/L (8-16); Aspartate Amino Transferase 25 U/L (17-59); Bilirubin,Total 0.2 mg/dL (0.2-1.3); Blood Urea Nitrogen 55 mg/dL (9-20); Carbon Dioxide 20 mmol/L (22-30); Chloride 101 mmol/L (98-107); Estimated CRCL calculation 52 ml/min; Estimated Glomerular Filt Rate 37; Glucose 165 mg/dL (65-110); Phosphorus 5.1 mg/dL (2.5-4.5); Potassium 5.1 mmol/L (3.4-5.0); Sodium 129 mmol/L (137-145)
[2022-01-04 05:39] LABS: Device VENTILATOR; Site Drawn LEFT RADIAL
[2022-01-04 05:40] LABS: Arterial Blood Gas PEEP 8 cmH2O; Arterial Blood Gas Tidal Volume 550 ml; Arterial Blood Gas Vent Mode CMV; Arterial Blood Gas Ventilator rate 22 /MIN
[2022-01-04] MEDS: FENTANYL 2,500MCG/NS250ML(*CRX 2,500 MCG/250 ML BAG IV CONT (07:23)
[2022-01-04] MEDS: BUDESONIDE RESPULE NEB 0.5 MG/2 ML AMP INHALATION ×2 (08:10→20:06)
--- NOTE | 2022-01-04 08:21 | WPDINTPN ---
Progress Note: A&P Assessment and Plan (1) Acute respiratory failure with hypoxia and hypercapnia: Code(s): J96.01 - Acute respiratory failure with hypoxia; J96.02 - Acute respiratory failure with hypercapnia Status: Acute Assessment and Plan: Patient presented with acute shortness of breath, hypoxia, it to be intubated on the field by EMS -chest x-ray on admission showed cardiomegaly with interstitial edema -patient currently on CMV mode of ventilation, peep of 8 and 35% FiO2 -chest x-ray this morning shows Bilateral lower lung infiltrates and/atelectasis, relatively stable since 01/03/2022? -ABGs reviewed -continue bronchodilators, steroids - Sedated with fentanyl and Versed infusion, maintain RASS of 0 to -2, will wean sedation to off, place patient on spontaneous breathing trial and evaluate for extubation -01/03 CT chest: Small pleural effusions, mild emphysema, Two 8 mm nodules in right lung, which may be infection or atelectasis or less likely malignancy. Noncontrast chest CT is recommended in 3 months. Multinodular goiter. Consider thyroid ultrasound for risk stratification. Mild splenomegaly. (2) Acute on chronic diastolic congestive heart failure: Code(s): I50.33 - Acute on chronic diastolic (congestive) heart failure Status: Acute Assessment and Plan: 12/30/2021 echocardiogram showed EF of 55-60%, grade 1 diastolic dysfunction, no valvular vegetations (3) Chronic obstructive pulmonary disease: Code(s): J44.9 - Chronic obstructive pulmonary disease, unspecified Status: Acute Assessment and Plan: Patient with history of COPD, possible bronchitis on this admission, -on a patient also with wheezing, was placed on steroids on admission -continue bronchodilators -continue Pulmicort (4) Chronic anemia: Code(s): D64.9 - Anemia, unspecified Status: Acute Assessment and Plan: Patient with history of chronic anemia -recent B12 and folate were normal, no evidence of acute blood loss -iron studies were consistent with anemia of chronic disease -stool guaiac was negative on 12/27/2021 and 01/03/2022 -continue to monitor -continue iron supplement -will transfuse if hemoglobin < 7.0 (5) Chronic kidney disease: Code(s): N18.9 - Chronic kidney disease, unspecified Status: Acute Assessment and Plan: History of chronic renal disease with baseline creatinine 1.7-2.5 -patient on maintenance IV fluids -could be related to hypoxia, UTI, sepsis -continue to monitor renal function, electrolytes and urine output (6) UTI due to extended-spectrum beta lactamase (ESBL) producing Escherichia coli: Code(s): N39.0 - Urinary tract infection, site not specified; B96.29 - Other Escherichia coli [E. coli] as the cause of diseases classified elsewhere; Z16.12 - Extended spectrum beta lactamase (ESBL) resistance Status: Acute Assessment and Plan: Recent history of UTI, with ESBL E coli on 12/25/2021 patient is on ertapenem through 01/05/2022 (7) Enterococcus faecalis infection: Code(s): B95.2 - Enterococcus as the cause of diseases classified elsewhere Status: Acute Assessment and Plan: Recent blood cultures grew Enterococcus faecalis on 12/25/2021, patient is on vancomycin through 01/07/2022 (8) DVT prophylaxis: Code(s): Z29.9 - Encounter for prophylactic measures, unspecified Status: Acute Assessment and Plan: Continue apixaban for atrial fibrillation, currently in sinus bradycardia Plan Hold sedation and tube feeds for possible extubation Monitor urine output Monitor hemoglobin Additional Plan Stress ulcer prophylaxis: Protonix Nutrition: Tolerating tube feeds, will hold for possible extubation Code status: Full code Critical care time spent: 35 minutes This dictation may have been done utilizing a voice recognition system. Attempts have been made to correct errors. However, there may be uncorrect
[2022-01-04] MEDS: GABAPENTIN 400 MG CAPSULE PO ×3 (08:29→17:35)
[2022-01-04] MEDS: SIMETHICONE 80 MG TAB.CHEW PO ×2 (08:29→17:35)
[2022-01-04] MEDS: PREGABALIN (*CRX) 75 MG CAPSULE PO ×3 (09:29→17:34)
[2022-01-04] MEDS: BACLOFEN 10 MG TABLET PO ×2 (09:29→17:34)
[2022-01-04] MEDS: FERROUS SULFATE 324 MG TABLET PO ×2 (09:30→17:34)
[2022-01-04] MEDS: APIXABAN 2.5 MG TABLET PO ×2 (09:30→20:33)
[2022-01-04] MEDS: PANTOPRAZOLE SODIUM IV 40 MG VIAL IV PUSH (09:39)
--- NOTE | 2022-01-04 11:09 | PM.IMPN ---
Progress Note: A&P Assessment and Plan (1) Acute respiratory failure with hypoxia and hypercapnia: Code(s): J96.01 - Acute respiratory failure with hypoxia; J96.02 - Acute respiratory failure with hypercapnia Status: Acute Assessment and Plan: Presumably due to a combination of COPD and interstitial edema on imaging. Pulmonary embolism seems less likely as he is on apixaban. Currently on mechanical ventilation, being managed by Dr. Guerrero. Chest x-ray reviewed SBT trial and possible extubation CT chest 01/03 small pleural effusion, mild emphysema, 2 8 mm nodules in right lung which may be infectious or atelectasis or less likely malignancy. Noncontrast chest CT is recommended in 3 months. Multi nodule goiter. Consider thyroid ultrasound for the stratification. Mild splenomegaly (2) Acute on chronic diastolic congestive heart failure: Code(s): I50.33 - Acute on chronic diastolic (congestive) heart failure Status: Acute Assessment and Plan: Interstitial edema noted on chest x-ray. Currently on mechanical ventilation. Started on IV diuresis currently on hold due to worsening renal function echo 12/30/2021 EF 55-60%, grade 1 diastolic dysfunction, no valvular vegetations (3) Chronic obstructive pulmonary disease: Code(s): J44.9 - Chronic obstructive pulmonary disease, unspecified Status: Acute Assessment and Plan: Thick, yellow secretions noted in the ET tube. Sputum culture has been ordered and Continue bronchodilators and Pulmicort Steroid (4) Chronic anemia: Code(s): D64.9 - Anemia, unspecified Status: Acute Assessment and Plan: Stable on review of previous labs. (5) Chronic kidney disease: Code(s): N18.9 - Chronic kidney disease, unspecified Status: Acute Assessment and Plan: Creatinine is stable on review of previous labs and will be monitored. (6) Enterococcus faecalis infection: Code(s): B95.2 - Enterococcus as the cause of diseases classified elsewhere Status: Acute Assessment and Plan: Recent hospitalization for ESBL E coli UTI and Enterococcus faecalis bacteremia. Continue vancomycin through 01/07/2022 and ertapenem through 01/05/2022. blood culture positive for Staphylococcus haemolyticus 2/ Recheck blood culture x2 (7) UTI due to extended-spectrum beta lactamase (ESBL) producing Escherichia coli: Code(s): N39.0 - Urinary tract infection, site not specified; B96.29 - Other Escherichia coli [E. coli] as the cause of diseases classified elsewhere; Z16.12 - Extended spectrum beta lactamase (ESBL) resistance Status: Acute Assessment and Plan: Plan is as detailed above. Subjective Date/time seen: 01/04/22 11:09 Interval history: HPI:This is a 71-year-old male with paraplegia, neurogenic bladder with indwelling Pereira catheter, chronic kidney disease, diastolic congestive heart failure, paroxysmal atrial fibrillation, chronic obstructive pulmonary disease, and hypertension who presented to the emergency department via EMS from [facility] for evaluation of shortness of breath. He is known to the hospitalist service with a recent admission just last week in which he was treated for sepsis related to a complicated urinary tract infection. He was discharged 2 days ago on IV vancomycin for Enterococcus faecalis in 1 of 2 blood cultures. According to his daughter, the patient seemed to be in his usual state of health when he was discharged from the hospital. Last evening he was apparently not as interactive as normal and did not want to eat much dinner. This morning he apparently refused breakfast and staff report that he became increasingly short of breath as the morning went on, eventually prompting a call to emergency services.? At on EMS arrival he was hypoxic with an SpO2 of 83% on room air. He was placed on CPAP however was unable to tolerate that or [id number]
[2022-01-04] MEDS: MINERAL OIL/WHITE PETROLATUM OINTMENT 1 APPLIC EACH EYE ×2 (12:45→20:33)
[2022-01-04 13:48] LABS: Alveolar/Arterial O2 Gradient 110.9 mmHg; Base Excess ABG -4.6 mEq/l (+/-2.0); Fractional Inspired Oxygen 35 %; HCO3 ABG 21.7 mEq/l (22.0-26.0); Oxygen Content ABG 12.4 %vol (16.0-22.0); Oxygen Saturation ABG 95.4 % (95.0-100.0); Oxyhemoglobin 93.8 % THb (90.0-100.0); PCO2 ABG 45.6 mmHg (35.0-45.0); PO2 ABG 85.6 mmHg (80.0-100.0); PO2 FiO2 Ratio Arterial Blood 2.45 %; Total Hemoglobin 9.3 g/dL (12.0-18.0)
[2022-01-04 13:49] LABS: Device VENTILATOR; Modified Allen's Test Pass; Site Drawn RIGHT RADIAL; pH ABG 7.295 (7.350-7.450)
[2022-01-04 13:50] LABS: Arterial Blood Gas PEEP 5 cmH2O; Arterial Blood Gas Pressure Support 8 cmH2O; Arterial Blood Gas Vent Mode SPONTANEOUS
[2022-01-04] MEDS: dexmedeTOMIDine 400 MCG/100 ML 400 MCG/100 ML BAG 7.39 MCG IV CONT (14:03)
[2022-01-04] MEDS: ERTAPENEM 1 GM/NS 50 ML 1 GM/50 ML BAG IVPB (17:44)
[2022-01-04] MEDS: dexmedeTOMIDine 400 MCG/100 ML 400 MCG/100 ML BAG 22.17 MCG IV CONT (19:07)
[2022-01-04] MEDS: ATORVASTATIN 10 MG TABLET PO (20:32)
[2022-01-04] MEDS: dexmedeTOMIDine 400 MCG/100 ML 400 MCG/100 ML BAG 29.56 MCG IV CONT (23:21)
[2022-01-05] VITALS (47 sets, daily range): BP systolic 101–166; BP diastolic 45–76; PULSE 54–87; RESP 7–28; TEMP 35.6–36.6; O2SAT 94–100
[2022-01-05] MEDS: dexmedeTOMIDine 400 MCG/100 ML 400 MCG/100 ML BAG 29.56 MCG IV CONT ×2 (02:08→05:56)
[2022-01-05] MEDS: LACTATED RINGERS 1,000 ML 75 ML IV CONT (02:09)
[2022-01-05] MEDS: ALBUTEROL SULFATE NEB 2.5 MG/3 ML INH 5 MG INHALATION ×4 (02:33→20:00)
[2022-01-05] MEDS: IPRATROPIUM BR 0.02% INH SOLN 0.5 MG/2.5 ML VIAL INHALATION ×4 (02:34→19:59)
[2022-01-05] MEDS: CENTRAL LINE FLUSH 10 ML IV PUSH ×7 (04:28→21:18)
[2022-01-05 05:40] LABS: Alveolar/Arterial O2 Gradient 117.3 mmHg; Base Excess ABG -3.9 mEq/l (+/-2.0); Carboxyhemoglobin 0.3 % THb (0-2.0); Fractional Inspired Oxygen 35 %; HCO3 ABG 20.9 mEq/l (22.0-26.0); Methemoglobin ABG 0.3 %THb (0-1.5); Oxygen Content ABG 17.7 %vol (16.0-22.0); Oxygen Saturation ABG 96.6 % (95.0-100.0); PO2 ABG 89.2 mmHg (80.0-100.0); PO2 FiO2 Ratio Arterial Blood 2.55 %; Reduced Hemoglobin 4.4 %THb (0-5.0); Total Hemoglobin 13.2 g/dL (12.0-18.0); pH ABG 7.369 (7.350-7.450)
[2022-01-05 05:42] LABS: Device VENTILATOR; Modified Allen's Test Pass; Site Drawn RIGHT RADIAL
[2022-01-05 05:43] LABS: Arterial Blood Gas PEEP 8 cmH2O; Arterial Blood Gas Tidal Volume 550 ml; Arterial Blood Gas Vent Mode CMV; Arterial Blood Gas Ventilator rate 22 /MIN
[2022-01-05 05:59] LABS: Basophils Percent Auto 0.1 % (0.2-1.2); Hematocrit 25.9 % (42.0-52.0); Hemoglobin 8.4 g/dL (14.0-18.0); Immature Granulocyte Absolute 0.06 K/mm3 (0.00-0.031); Immature Granulocyte Percent A 0.7 % (0-0.5); Lymphocytes Absolute Auto 0.39 K/mm3 (0.9-3.2); Lymphocytes Percent Auto 4.6 % (18.3-44.2); Mean Corpuscular HGB Conc 32.4 g/dl (32-36); Mean Corpuscular Hemoglobin 27.5 pg (26-34); Mean Corpuscular Volume 84.6 fl (80-100); Mean Platelet Volume 9.4 fl (7.4-10.4); Monocytes Absolute Auto 0.2 K/mm3 (0.1-0.6); Monocytes Percent Auto 2.1 % (2.6-8.5); Neutrophils Absolute Auto 7.8 K/mm3 (1.3-6.7); Neutrophils Percent Auto 92.5 % (45.5-73.1); Platelet Count Result 211 k/mm3 (150-375); Red Blood Count 3.06 M/mm3 (4.6-6.20); Red Cell Distribution Width 14.9 % (11.5-14.5); White Blood Count 8.4 K/mm3 (4.5-10.0)
[2022-01-05 06:21] LABS: Alanine Aminotransferase 45 U/L (6-50); Albumin Level 3.5 g/dL (3.5-5.1); Alkaline Phosphatase 297 U/L (38-126); Anion Gap 8 mmol/L (8-16); Aspartate Amino Transferase 38 U/L (17-59); Bilirubin,Total 0.2 mg/dL (0.2-1.3); Blood Urea Nitrogen 70 mg/dL (9-20); Calcium 8.2 mg/dL (8.4-10.2); Carbon Dioxide 21 mmol/L (22-30); Chloride 102 mmol/L (98-107); Estimated CRCL calculation 45 ml/min; Estimated Glomerular Filt Rate 31; Glucose 216 mg/dL (65-110); Phosphorus 5.1 mg/dL (2.5-4.5); Sodium 131 mmol/L (137-145)
[2022-01-05] MEDS: methylPREDNISolone SOD SUCC 125 MG VIAL 60 MG IV PUSH (06:27)
[2022-01-05] MEDS: LEVOTHYROXINE SODIUM 25 MCG TABLET PO (06:28)
[2022-01-05] MEDS: BUDESONIDE RESPULE NEB 0.5 MG/2 ML AMP INHALATION ×2 (07:22→19:59)
[2022-01-05] MEDS: dexmedeTOMIDine 400 MCG/100 ML 400 MCG/100 ML BAG 22.17 MCG IV CONT (08:40)
--- NOTE | 2022-01-05 09:36 | WPDINTPN ---
Progress Note: A&P Assessment and Plan (1) Acute respiratory failure with hypoxia and hypercapnia: Code(s): J96.01 - Acute respiratory failure with hypoxia; J96.02 - Acute respiratory failure with hypercapnia Status: Acute Assessment and Plan: Patient presented with acute shortness of breath, hypoxia, it to be intubated on the field by EMS -chest x-ray on admission showed cardiomegaly with interstitial edema -patient currently on CMV mode of ventilation, peep of 8 and 35% FiO2 -chest x-ray this morning: Bibasilar infiltrate and/atelectasis, increased since 01/04/2022? -ABGs reviewed -continue bronchodilators, steroids -01/04/2022: Fentanyl and Versed infusion were discontinued, according the daughter patient takes a while to clear sedation in the past. Patient was only breathing 7-10 times a minute, was somnolent, ABGs showed respiratory acidosis. Patient was started on Precedex infusion and placed back on CMV mode of ventilation -01/05/2022: Precedex has been discontinued, patient placed on ASV, continues to be somnolent with low respiratory rates, once he is more awake will place him on SBT and evaluate for extubation -01/03 CT chest: Small pleural effusions, mild emphysema, Two 8 mm nodules in right lung, which may be infection or atelectasis or less likely malignancy. Noncontrast chest CT is recommended in 3 months. Multinodular goiter. Consider thyroid ultrasound for risk stratification. Mild splenomegaly. (2) Acute on chronic diastolic congestive heart failure: Code(s): I50.33 - Acute on chronic diastolic (congestive) heart failure Status: Acute Assessment and Plan: 12/30/2021 echocardiogram showed EF of 55-60%, grade 1 diastolic dysfunction, no valvular vegetations (3) Chronic obstructive pulmonary disease: Code(s): J44.9 - Chronic obstructive pulmonary disease, unspecified Status: Acute Assessment and Plan: Patient with history of COPD, possible bronchitis on this admission, -patient was placed on Solu-Medrol on admission, has has been weaned, discontinue on 01/06 -continue bronchodilators -continue Pulmicort (4) Chronic anemia: Code(s): D64.9 - Anemia, unspecified Status: Acute Assessment and Plan: Patient with history of chronic anemia -recent B12 and folate were normal, no evidence of acute blood loss -iron studies were consistent with anemia of chronic disease -stool guaiac was negative on 12/27/2021 and 01/03/2022 -continue to monitor -continue iron supplement -will transfuse if hemoglobin < 7.0 (5) Chronic kidney disease: Code(s): N18.9 - Chronic kidney disease, unspecified Status: Acute Assessment and Plan: History of chronic renal disease with baseline creatinine 1.7-2.5 -patient on maintenance IV fluids -could be related to hypoxia, UTI, sepsis -continue to monitor renal function, electrolytes and urine output -BUN and and creatinine rising could be related to steroids, which will be discontinued (6) UTI due to extended-spectrum beta lactamase (ESBL) producing Escherichia coli: Code(s): N39.0 - Urinary tract infection, site not specified; B96.29 - Other Escherichia coli [E. coli] as the cause of diseases classified elsewhere; Z16.12 - Extended spectrum beta lactamase (ESBL) resistance Status: Acute Assessment and Plan: Recent history of UTI, with ESBL E coli on 12/25/2021 patient is on ertapenem through 01/05/2022 (7) Enterococcus faecalis infection: Code(s): B95.2 - Enterococcus as the cause of diseases classified elsewhere Status: Acute Assessment and Plan: Recent blood cultures grew Enterococcus faecalis on 12/25/2021, patient is on vancomycin through 01/07/2022 (8) DVT prophylaxis: Code(s): Z29.9 - Encounter for prophylactic measures, unspecified Status: Acute Assessment and Plan: Continue apixaban for atrial fibrillation, currently in sinus bradycardia Plan Ho
[2022-01-05] MEDS: PREGABALIN (*CRX) 75 MG CAPSULE PO ×3 (09:38→17:59)
[2022-01-05] MEDS: BACLOFEN 10 MG TABLET PO ×2 (09:38→17:59)
[2022-01-05] MEDS: APIXABAN 2.5 MG TABLET PO ×2 (09:38→21:17)
[2022-01-05] MEDS: FERROUS SULFATE 324 MG TABLET PO ×2 (09:39→18:00)
[2022-01-05] MEDS: SIMETHICONE 80 MG TAB.CHEW PO ×2 (09:39→15:14)
[2022-01-05] MEDS: PANTOPRAZOLE SODIUM IV 40 MG VIAL IV PUSH (09:39)
[2022-01-05] MEDS: GABAPENTIN 400 MG CAPSULE PO ×3 (09:39→18:00)
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
[2022-01-05] MEDS: FUROSEMIDE INJ 40 MG/4 ML VIAL 20 MG IV PUSH (10:43)
[2022-01-05 11:38] LABS: Creatine Kinase 23 U/L (55-170)
[2022-01-05 11:49] LABS: Appearance Urine Clear (Clear); Bilirubin Urine Negative (Negative); Blood Urine 2+ (Negative); Color Urine Yellow (Yellow); Glucose Urine UA Negative (Negative); Ketones Urine Negative (Negative); Leukocyte Esterase Ur 2+ LEU/UL (NEGATIVE); Nitrate Urine Negative (Negative); Protein Urine Negative (Negative); Specific Grav Ur <= 1.005 (1.001-1.035); Urobilinogen Urine 0.2 mg/dL (<2.0)
[2022-01-05 11:52] LABS: Bacteria Urine Trace /hpf; Mucus Urine Rare /lpf; WBC Clumps Urine Present /HPF; WBC Urine 51-75 /hpf (0-3)
[2022-01-05 11:54] LABS: Add Urine Microscopic? YES
[2022-01-05 12:31] LABS: Glucose Point of Care 210 mg/dl (65-105)
[2022-01-05 12:45] LABS: Base Excess ABG -4.6 mEq/l (+/-2.0); Fractional Inspired Oxygen 35 %; Oxygen Content ABG 12.7 %vol (16.0-22.0); Oxygen Saturation ABG 95.8 % (95.0-100.0); PCO2 ABG 40.9 mmHg (35.0-45.0); PO2 FiO2 Ratio Arterial Blood 2.43 %; Total Hemoglobin 9.5 g/dL (12.0-18.0); pH ABG 7.329 (7.350-7.450)
[2022-01-05 12:46] LABS: Device VENTILATOR; Modified Allen's Test Pass; Site Drawn LEFT RADIAL
[2022-01-05 12:47] LABS: Arterial Blood Gas PEEP 5 cmH2O; Arterial Blood Gas Tidal Volume 550 ml; Arterial Blood Gas Vent Mode CMV; Arterial Blood Gas Ventilator rate 22 /MIN
[2022-01-05 14:19] LABS: Ammonia < 9 umol/L (9-30)
--- NOTE | 2022-01-05 14:49 | PM.IMPN ---
Progress Note: A&P Assessment and Plan (1) Acute respiratory failure with hypoxia and hypercapnia: Code(s): J96.01 - Acute respiratory failure with hypoxia; J96.02 - Acute respiratory failure with hypercapnia Status: Acute Assessment and Plan: Presumably due to a combination of COPD and interstitial edema on imaging. Pulmonary embolism seems less likely as he is on apixaban. Currently on mechanical ventilation, being managed by Dr. Guerrero. Chest x-ray reviewed SBT trial and possible extubation in process failed SBT 01/04/2022 CT chest 01/03 small pleural effusion, mild emphysema, 2 8 mm nodules in right lung which may be infectious or atelectasis or less likely malignancy. Noncontrast chest CT is recommended in 3 months. Multi nodule goiter. Consider thyroid ultrasound for the stratification. Mild splenomegaly (2) Acute on chronic diastolic congestive heart failure: Code(s): I50.33 - Acute on chronic diastolic (congestive) heart failure Status: Acute Assessment and Plan: Interstitial edema noted on chest x-ray. Currently on mechanical ventilation. Started on IV diuresis currently on hold due to worsening renal function echo 12/30/2021 EF 55-60%, grade 1 diastolic dysfunction, no valvular vegetations (3) Chronic obstructive pulmonary disease: Code(s): J44.9 - Chronic obstructive pulmonary disease, unspecified Status: Acute Assessment and Plan: Thick, yellow secretions noted in the ET tube. Sputum culture has been ordered and Continue bronchodilators and Pulmicort Steroid (4) Chronic anemia: Code(s): D64.9 - Anemia, unspecified Status: Acute Assessment and Plan: Stable on review of previous labs. (5) Chronic kidney disease: Code(s): N18.9 - Chronic kidney disease, unspecified Status: Acute Assessment and Plan: Creatinine is stable on review of previous labs and will be monitored. (6) Enterococcus faecalis infection: Code(s): B95.2 - Enterococcus as the cause of diseases classified elsewhere Status: Acute Assessment and Plan: Recent hospitalization for ESBL E coli UTI and Enterococcus faecalis bacteremia. Continue vancomycin through 01/07/2022 and ertapenem through 01/05/2022. blood culture positive for Staphylococcus haemolyticus on 1 and Staph epidermis on the other Recheck blood culture x2 comes back positive for Gram-positive cocci in clusters again from 01/04/2022 (7) UTI due to extended-spectrum beta lactamase (ESBL) producing Escherichia coli: Code(s): N39.0 - Urinary tract infection, site not specified; B96.29 - Other Escherichia coli [E. coli] as the cause of diseases classified elsewhere; Z16.12 - Extended spectrum beta lactamase (ESBL) resistance Status: Acute Assessment and Plan: Plan is as detailed above. Subjective Date/time seen: 01/05/22 14:49 Interval history: HPI:This is a 71-year-old male with paraplegia, neurogenic bladder with indwelling Pereira catheter, chronic kidney disease, diastolic congestive heart failure, paroxysmal atrial fibrillation, chronic obstructive pulmonary disease, and hypertension who presented to the emergency department via EMS from [facility] for evaluation of shortness of breath. He is known to the hospitalist service with a recent admission just last week in which he was treated for sepsis related to a complicated urinary tract infection. He was discharged 2 days ago on IV vancomycin for Enterococcus faecalis in 1 of 2 blood cultures. According to his daughter, the patient seemed to be in his usual state of health when he was discharged from the hospital. Last evening he was apparently not as interactive as normal and did not want to eat much dinner. This morning he apparently refused breakfast and staff report that he became increasingly short of breath as the morning went on, eventually prompting a call to emergency service
--- NOTE | 2022-01-05 14:54 | PC.NURSE ---
pt drowsy during 1200 assessment, when previously he had been awake and attempting to pull gown and nurse monitoring wires off repeatedly. Not following commands appropriately, which was a change in condition. Respiratory rate on pressure support ventilation 10/5 ranging from 6 to 10 breaths per minute. Attempts to stimulate patient were unsuccessful. Dr. Guerrero notified and came promptly to bedside. Pulse present, blood glucose 210, stat ABG's drawn. Pt taken for stat CT of Head. On arrival back to unit, patient was able to be stimulated, was drowsy, and began following commands. Daughter and daughter in law at bedside and communicating with patient. Labs drawn. Waiting for results from imaging.
[2022-01-05] MEDS: INSULIN ASPART (*BKC) 100 UNITS/ML SUB-Q (15:14)
[2022-01-05 15:17] LABS: Anion Gap 6 mmol/L (8-16); Blood Urea Nitrogen 76 mg/dL (9-20); Calcium 8.3 mg/dL (8.4-10.2); Carbon Dioxide 25 mmol/L (22-30); Chloride 102 mmol/L (98-107); Estimated CRCL calculation 45 ml/min; Estimated Glomerular Filt Rate 31; Glucose 167 mg/dL (65-110); Potassium 4.6 mmol/L (3.4-5.0); Sodium 133 mmol/L (137-145)
[2022-01-05] MEDS: ERTAPENEM 1 GM/NS 50 ML 1 GM/50 ML BAG IVPB (18:03)
[2022-01-05 18:29] LABS: Glucose Point of Care 158 mg/dl (65-105)
[2022-01-05] MEDS: ATORVASTATIN 10 MG TABLET PO (21:17)
[2022-01-05] MEDS: MINERAL OIL/WHITE PETROLATUM OINTMENT 1 APPLIC EACH EYE ×2 (21:17→21:18)
[2022-01-05 23:19] LABS: Creatinine Urine 46.7 mg/dL; Total Protein Urine Random 14 mg/dL
[2022-01-05 23:29] LABS: Sodium Urine Random 15 meq/L
[2022-01-06] VITALS (32 sets, daily range): BP systolic 119–151; BP diastolic 45–70; PULSE 56–87; RESP 12–22; TEMP 36.2–36.4; O2SAT 95–100
[2022-01-06 01:03] LABS: Glucose Point of Care 137 mg/dl (65-105)
[2022-01-06] MEDS: ALBUTEROL SULFATE NEB 2.5 MG/3 ML INH 5 MG INHALATION ×4 (02:17→20:00)
[2022-01-06] MEDS: IPRATROPIUM BR 0.02% INH SOLN 0.5 MG/2.5 ML VIAL INHALATION ×4 (02:17→19:59)
[2022-01-06 05:11] LABS: Alveolar/Arterial O2 Gradient 131.9 mmHg; Base Excess ABG -2.3 mEq/l (+/-2.0); Carboxyhemoglobin 0.2 % THb (0-2.0); Fractional Inspired Oxygen 35 %; HCO3 ABG 21.2 mEq/l (22.0-26.0); Methemoglobin ABG 0.3 %THb (0-1.5); Oxygen Content ABG 13.3 %vol (16.0-22.0); Oxygen Saturation ABG 96.5 % (95.0-100.0); Oxyhemoglobin 94.5 % THb (90.0-100.0); PCO2 ABG 31.6 mmHg (35.0-45.0); PO2 ABG 80.9 mmHg (80.0-100.0); PO2 FiO2 Ratio Arterial Blood 2.31 %; Total Hemoglobin 9.9 g/dL (12.0-18.0); pH ABG 7.444 (7.350-7.450)
[2022-01-06 05:15] LABS: Device VENTILATOR; Modified Allen's Test Pass; Site Drawn LEFT RADIAL
[2022-01-06 05:16] LABS: Arterial Blood Gas PEEP 5 cmH2O; Arterial Blood Gas Tidal Volume 550 ml; Arterial Blood Gas Vent Mode CMV; Arterial Blood Gas Ventilator rate 22 /MIN
[2022-01-06 05:31] LABS: Basophils Percent Auto 0.1 % (0.2-1.2); Hematocrit 24.8 % (42.0-52.0); Lymphocytes Absolute Auto 0.53 K/mm3 (0.9-3.2); Lymphocytes Percent Auto 5.3 % (18.3-44.2); Mean Corpuscular HGB Conc 32.3 g/dl (32-36); Mean Corpuscular Hemoglobin 27.2 pg (26-34); Mean Corpuscular Volume 84.4 fl (80-100); Mean Platelet Volume 9.3 fl (7.4-10.4); Monocytes Absolute Auto 0.8 K/mm3 (0.1-0.6); Monocytes Percent Auto 7.9 % (2.6-8.5); Neutrophils Absolute Auto 8.5 K/mm3 (1.3-6.7); Neutrophils Percent Auto 85.7 % (45.5-73.1); Platelet Count Result 205 k/mm3 (150-375); Red Blood Count 2.94 M/mm3 (4.6-6.20); White Blood Count 9.9 K/mm3 (4.5-10.0)
[2022-01-06 05:45] LABS: Alanine Aminotransferase 84 U/L (6-50); Albumin Level 3.4 g/dL (3.5-5.1); Alkaline Phosphatase 264 U/L (38-126); Anion Gap 6 mmol/L (8-16); Aspartate Amino Transferase 59 U/L (17-59); Bilirubin,Total 0.2 mg/dL (0.2-1.3); Blood Urea Nitrogen 82 mg/dL (9-20); Calcium 8.3 mg/dL (8.4-10.2); Carbon Dioxide 25 mmol/L (22-30); Chloride 103 mmol/L (98-107); Estimated CRCL calculation 45 ml/min; Estimated Glomerular Filt Rate 31; Glucose 125 mg/dL (65-110); Magnesium 2.1 mg/dL (1.6-2.3); Phosphorus 4.6 mg/dL (2.5-4.5); Potassium 4.8 mmol/L (3.4-5.0); Sodium 134 mmol/L (137-145)
[2022-01-06] MEDS: CENTRAL LINE FLUSH 10 ML IV PUSH ×4 (06:02→21:34)
[2022-01-06] MEDS: LEVOTHYROXINE SODIUM 25 MCG TABLET PO (06:02)
[2022-01-06] MEDS: BUDESONIDE RESPULE NEB 0.5 MG/2 ML AMP INHALATION ×2 (07:49→19:59)
[2022-01-06] MEDS: BACLOFEN 10 MG TABLET PO ×2 (08:07→17:58)
[2022-01-06] MEDS: FERROUS SULFATE 324 MG TABLET PO ×2 (08:07→17:59)
[2022-01-06] MEDS: SIMETHICONE 80 MG TAB.CHEW PO ×2 (08:07→17:59)
[2022-01-06] MEDS: APIXABAN 2.5 MG TABLET PO ×2 (08:07→21:34)
[2022-01-06] MEDS: GABAPENTIN 400 MG CAPSULE PO ×2 (08:07→17:58)
[2022-01-06] MEDS: PREGABALIN (*CRX) 75 MG CAPSULE PO ×2 (08:07→17:58)
[2022-01-06] MEDS: MINERAL OIL/WHITE PETROLATUM OINTMENT 1 APPLIC EACH EYE ×2 (08:08)
[2022-01-06] MEDS: PANTOPRAZOLE SODIUM IV 40 MG VIAL IV PUSH (08:08)
[2022-01-06] MEDS: methylPREDNISolone SOD SUCC 40 MG VIAL IV PUSH (08:08)
[2022-01-06] MEDS: UMECLIDINIUM/VILANTEROL 62.5-25 MCG ELLIPTA 1 PUFF INHALATION (08:21)
--- NOTE | 2022-01-06 08:33 | WPDINTPN ---
Progress Note: A&P Assessment and Plan (1) Acute respiratory failure with hypoxia and hypercapnia: Code(s): J96.01 - Acute respiratory failure with hypoxia; J96.02 - Acute respiratory failure with hypercapnia Status: Acute Assessment and Plan: Patient presented with acute shortness of breath, hypoxia, it to be intubated on the field by EMS -chest x-ray on admission showed cardiomegaly with interstitial edema -patient currently on CMV mode of ventilation, peep of 8 and 35% FiO2 -chest x-ray this morning: Bibasilar infiltrate and/atelectasis, increased since 01/04/2022? -ABGs reviewed -continue bronchodilators, steroids -01/04/2022: Fentanyl and Versed infusion were discontinued, according the daughter patient takes a while to clear sedation in the past. Patient was only breathing 7-10 times a minute, was somnolent, ABGs showed respiratory acidosis. Patient was started on Precedex infusion and placed back on CMV mode of ventilation -01/05/2022: Patient was placed on a SBT, then went unresponsive to pain stimulus, was placed back on CMV mode of ventilation This morning patient is awake, alert, follows simple commands, on no sedation. Placed patient on SBT with PSV of 5/5 and will evaluate for extubation -01/03 CT chest: Small pleural effusions, mild emphysema, Two 8 mm nodules in right lung, which may be infection or atelectasis or less likely malignancy. Noncontrast chest CT is recommended in 3 months. Multinodular goiter. Consider thyroid ultrasound for risk stratification. Mild splenomegaly. (2) Acute on chronic diastolic congestive heart failure: Code(s): I50.33 - Acute on chronic diastolic (congestive) heart failure Status: Acute Assessment and Plan: 12/30/2021 echocardiogram showed EF of 55-60%, grade 1 diastolic dysfunction, no valvular vegetations (3) Chronic obstructive pulmonary disease: Code(s): J44.9 - Chronic obstructive pulmonary disease, unspecified Status: Acute Assessment and Plan: Patient with history of COPD, possible bronchitis on this admission, -Solu-Medrol will be discontinued after this morning's dose -continue bronchodilators -continue Pulmicort (4) Chronic anemia: Code(s): D64.9 - Anemia, unspecified Status: Acute Assessment and Plan: Patient with history of chronic anemia -recent B12 and folate were normal, no evidence of acute blood loss -iron studies were consistent with anemia of chronic disease -stool guaiac was negative on 12/27/2021 and 01/03/2022 -continue to monitor -continue iron supplement -will transfuse if hemoglobin < 7.0 (5) Chronic kidney disease: Code(s): N18.9 - Chronic kidney disease, unspecified Status: Acute Assessment and Plan: History of chronic renal disease with baseline creatinine 1.7-2.5 -patient on maintenance IV fluids -could be related to hypoxia, UTI, sepsis -continue to monitor renal function, electrolytes and urine output -BUN and and creatinine rising could be related to steroids, which will be discontinued (6) UTI due to extended-spectrum beta lactamase (ESBL) producing Escherichia coli: Code(s): N39.0 - Urinary tract infection, site not specified; B96.29 - Other Escherichia coli [E. coli] as the cause of diseases classified elsewhere; Z16.12 - Extended spectrum beta lactamase (ESBL) resistance Status: Acute Assessment and Plan: Recent history of UTI, with ESBL E coli on 12/25/2021 patient is on ertapenem through 01/05/2022 (7) Enterococcus faecalis infection: Code(s): B95.2 - Enterococcus as the cause of diseases classified elsewhere Status: Acute Assessment and Plan: Recent blood cultures grew Enterococcus faecalis on 12/25/2021, patient is on vancomycin through 01/07/2022 (8) DVT prophylaxis: Code(s): Z29.9 - Encounter for prophylactic measures, unspecified Status: Acute Assessment and Plan: Continue apixaban for atrial f
[2022-01-06 10:29] LABS: Alveolar/Arterial O2 Gradient 152.2 mmHg; Fractional Inspired Oxygen 35 %; HCO3 ABG 21.9 mEq/l (22.0-26.0); Oxygen Content ABG 10.6 %vol (16.0-22.0); PCO2 ABG 43.4 mmHg (35.0-45.0); PO2 FiO2 Ratio Arterial Blood 1.34 %; Total Hemoglobin 9.9 g/dL (12.0-18.0); pH ABG 7.321 (7.350-7.450)
[2022-01-06 10:39] LABS: Oxygen Saturation ABG 96.3 % (95.0-100.0); Oxyhemoglobin 94.2 % THb (90.0-100.0); PO2 ABG 88.1 mmHg (80.0-100.0)
[2022-01-06 10:44] LABS: Device VENTILATOR; Modified Allen's Test Pass; Site Drawn RIGHT RADIAL
[2022-01-06 10:46] LABS: Arterial Blood Gas PEEP 5 cmH2O; Arterial Blood Gas Pressure Support 5 cmH2O; Arterial Blood Gas Vent Mode SPONTANEOUS
--- NOTE | 2022-01-06 11:03 | PC.NURSE ---
Patient successfully extubated at 1055. Placed on 4L nasal canula, no distress noted, patient alert and oriented, family at bedside.
--- NOTE | 2022-01-06 11:19 | PCFNICU ---
ICU Rounding Note: Pt current nutrition is NPO. Last recorded weight is 146.3 kg, down from 148.3 kg on admit. Bowel Motility:colostomy Labs Reviewed:PO4 4.6,Na 134, Hct 24.8,Hgb 8.0, BUN 82, Cr 2.1, Glu 125 Meds Noted: Mylicon, Protonix, Synthroid, Eliquis, Ferrous Sulfate, Neurontin Skin: right calf-venous stasis Additional Notes: Patient has been extubated. Patient NPO at this time. Plans for speech eval prior to diet orders. Following daily in ICU rounds. Will monitor every 3 days.
--- NOTE | 2022-01-06 11:30 | PM.PNNEP ---
Progress Note: A&P Additional Plan 1. Daniel has acute kidney injury. Renal ultrasound is normal except for a calcified lower pole cyst in the left kidney. Urinalysis shows a little bit of blood but he has a Pereira in. There was some white cells in his urine as well. Is on antibiotics. Urine electrolytes are okay. CK is Not elevated. The patient does have septic syndrome and is on vancomycin and ertapenem. Vancomycin is being run by pharmacy. His creatinine is about the same today. 2. The patient has chronic kidney disease. This is most likely due to hypertension and Vascular disease. His baseline creatinine seems to be in the mid 1s, around 1.4-1.7. 3. the patient has hypertension according to the charts. he is on diltiazem as the only medication for this. 4. The patient has atrial fibrillation. Is on anticoagulants, diltiazem. 5. The patient has anemia. Hemoglobin is up and down. Today it was 8.0. 6. The patient is intubated. He he is being checked for possibility of extubation. Discussed with Dr. Guerrero Subjective Date/time seen: 01/06/22 11:30 Interval history: Daniel is a little more interactive today. He is still intubated. Nods his head yes and no. He denies shortness of breath. Exam Narrative: WDWN in NAD skin no rash head ncat lungs clear cor reg no rub abd BS+ nontender and soft ext Trace edema. Objective Data Vital Signs Vital Signs: Vital Signs - 24 hr 01/05/22 11:45 01/05/22 12:00 01/05/22 12:20 Temperature 35.8 C L 35.8 C L Pulse Rate 59 L 62 Respiratory Rate 15 7 L Blood Pressure Pulse Oximetry 97 98 Oxygen Delivery Oxygen Flow Rate Fraction of Inspired Oxygen 35 01/05/22 12:32 01/05/22 13:55 01/05/22 13:56 Temperature 35.7 C L Pulse Rate 54 L 75 74 Respiratory Rate 23 H 28 H Blood Pressure 139/61 Pulse Oximetry 97 97 Oxygen Delivery Mechanical Ventilation Oxygen Flow Rate Fraction of Inspired Oxygen 35 01/05/22 14:00 01/05/22 12:00 01/05/22 14:15 Temperature 35.6 C L Pulse Rate 75 59 L 71 Respiratory Rate 27 H 7 L 24 H Blood Pressure 150/53 H Pulse Oximetry 97 99 Oxygen Delivery Mechanical Ventilation Oxygen Flow Rate Fraction of Inspired Oxygen 35 01/05/22 16:00 01/05/22 16:00 01/05/22 12:00 Temperature 35.7 C L Pulse Rate 87 76 Respiratory Rate 15 Blood Pressure 130/45 L Pulse Oximetry 98 Oxygen Delivery Oxygen Flow Rate Fraction of Inspired Oxygen 35 01/05/22 14:00 01/05/22 16:00 01/05/22 16:00 Temperature Pulse Rate 87 67 67 Respiratory Rate 10 L Blood Pressure Pulse Oximetry 99 Oxygen Delivery Mechanical Ventilation Oxygen Flow Rate Fraction of Inspired Oxygen 35 01/05/22 17:31 01/05/22 17:48 01/05/22 18:00 Temperature Pulse Rate 66 65 72 Respiratory Rate 12 Blood Pressure Pulse Oximetry 99 Oxygen Delivery Mechanical Ventilation Oxygen Flow Rate Fraction of Inspired Oxygen 35 01/05/22 20:05 01/05/22 20:05 01/05/22 20:05 Temperature Pulse Rate 72 72 72 Respiratory Rate 10 L 10 L Blood Pressure Pulse Oximetry 100 100 Oxygen Delivery Mechanical Ventilation Mechanical Ventilation Oxygen Flow Rate Fraction of Inspired Oxygen 35 35 01/05/22 18:55 01/05/22 20:00 01/05/22 20:00 Temperature Pulse Rate 65 62 63 Respiratory Rate 12 Blood Pressure Pulse Oximetry 99 Oxygen Delivery Mechanical Ventilation Oxygen Flow Rate Fraction of Inspired Oxygen 35 01/05/22 20:00 01/05/22 20:00 01/05/22 20:25 Temperature 35.9 C L Pulse Rate 64 62 Respiratory Rate 14 13 Blood Pressure 143/52 H Pulse Oximetry 99 Oxygen Delivery Oxygen Flow Rate Fraction of Inspired Oxygen 35 01/05/22 22:25 01/05/22 22:00 01/05/22 22:00 Temperature 36.1 C L Pulse Rate 78 62 62 Respiratory Rate 14 Blood Pressure 122/64 Pulse Oximetry 98 99 O
[2022-01-06 12:17] LABS: Glucose Point of Care 123 mg/dl (65-105)
--- NOTE | 2022-01-06 15:38 | PCPTNOTE ---
Attempted PT evaluation, Patient sleeping and RN requested patient rest at this time. Will Follow.
--- NOTE | 2022-01-06 15:47 | PCOTNOTE ---
Attempted OT evaluation, Patient sleeping and RN requested patient rest at this time. Will Follow.
--- NOTE | 2022-01-06 15:51 | PC.NURSE ---
Patient respirations decreased to 0 when sleeping and then returned to normal when awake. Dr. Guerrero was notified and Bipap was ordered to be used when patient is sleeping. Patient agreed to plan and is resting comfortably.
--- NOTE | 2022-01-06 16:05 | PM.IMPN ---
Progress Note: A&P Assessment and Plan (1) Acute respiratory failure with hypoxia and hypercapnia: Code(s): J96.01 - Acute respiratory failure with hypoxia; J96.02 - Acute respiratory failure with hypercapnia Status: Acute Assessment and Plan: Presumably due to a combination of COPD and interstitial edema on imaging. Pulmonary embolism seems less likely as he is on apixaban. Currently on mechanical ventilation, being managed by Dr. Guerrero. Chest x-ray reviewed SBT trial and possible extubation in process failed SBT 01/04/2022 CT chest 01/03 small pleural effusion, mild emphysema, 2 8 mm nodules in right lung which may be infectious or atelectasis or less likely malignancy. Noncontrast chest CT is recommended in 3 months. Multi nodule goiter. Consider thyroid ultrasound for the stratification. Mild splenomegaly Extubated 01/06/2022 on BiPAP p.r.n. postextubation (2) Acute on chronic diastolic congestive heart failure: Code(s): I50.33 - Acute on chronic diastolic (congestive) heart failure Status: Acute Assessment and Plan: Interstitial edema noted on chest x-ray. Currently on mechanical ventilation. Started on IV diuresis currently on hold due to worsening renal function echo 12/30/2021 EF 55-60%, grade 1 diastolic dysfunction, no valvular vegetations (3) Chronic obstructive pulmonary disease: Code(s): J44.9 - Chronic obstructive pulmonary disease, unspecified Status: Acute Assessment and Plan: Thick, yellow secretions noted in the ET tube. Sputum culture has been ordered and Continue bronchodilators and Pulmicort Steroid as ordered (4) Chronic anemia: Code(s): D64.9 - Anemia, unspecified Status: Acute Assessment and Plan: Stable on review of previous labs. (5) Chronic kidney disease: Code(s): N18.9 - Chronic kidney disease, unspecified Status: Acute Assessment and Plan: Creatinine is stable on review of previous labs and will be monitored. (6) Enterococcus faecalis infection: Code(s): B95.2 - Enterococcus as the cause of diseases classified elsewhere Status: Acute Assessment and Plan: Recent hospitalization for ESBL E coli UTI and Enterococcus faecalis bacteremia. Continue vancomycin through 01/07/2022 and ertapenem through 01/05/2022. blood culture positive for Staphylococcus haemolyticus on 1 and Staph epidermis on the other Recheck blood culture x2 comes back positive for Gram-positive cocci in clusters again 1 out of 2 from 01/04/2022 (7) UTI due to extended-spectrum beta lactamase (ESBL) producing Escherichia coli: Code(s): N39.0 - Urinary tract infection, site not specified; B96.29 - Other Escherichia coli [E. coli] as the cause of diseases classified elsewhere; Z16.12 - Extended spectrum beta lactamase (ESBL) resistance Status: Acute Assessment and Plan: Plan is as detailed above. (8) Encephalopathy: Code(s): G93.40 - Encephalopathy, unspecified Status: Acute Assessment and Plan: 01/05/2022: Patient became unresponsive on the ventilator, not responding to pain stimulus or sternal rub, stat CT scan of the brain was done, showed moderate cerebral volume loss, chronic small-vessel ischemic changes of the cerebral white matter.? ABGs were obtained and were normal, blood sugars and ammonia levels were normal.? Patient all of a sudden woke up and was back to baseline Carotid Doppler ordered spending Subjective Date/time seen: 01/06/22 16:05 Interval history: HPI:This is a 71-year-old male with paraplegia, neurogenic bladder with indwelling Pereira catheter, chronic kidney disease, diastolic congestive heart failure, paroxysmal atrial fibrillation, chronic obstructive pulmonary disease, and hypertension who presented to the emergency department via EMS from [facility] for evaluation of shortness of breath. He is known to the hospitalist service
--- NOTE | 2022-01-06 16:46 | PCSTNOTE ---
Please refer to the Bedside Swallow Evaluation in the EMR. Please note, silent aspiration cannot be ruled out at bedside.
[2022-01-06] MEDS: ERTAPENEM 1 GM/NS 50 ML 1 GM/50 ML BAG IVPB (17:57)
[2022-01-06 18:13] LABS: Glucose Point of Care 148 mg/dl (65-105)
[2022-01-06] MEDS: guaiFENesin/DEXTROMETHORPHAN 10 ML UDC PO (18:16)
--- NOTE | 2022-01-06 18:25 | PC.NURSE ---
Patient had Speech bedside swallow evaluation by Lizet. Patient did well. Ordered soft and bite sized dinner. I observed patient while eating and drinking. Patient did not appear to choke, cough or struggle while eating. Team to reevaluate during rounds to decide best diet option.
[2022-01-06 18:59] LABS: Pneumococcal Antigen Urine Not Detected (Not Detected)
[2022-01-06 20:29] LABS: Vancomycin Random 27.6 ug/mL (10-20)
[2022-01-06] MEDS: ATORVASTATIN 10 MG TABLET PO (21:34)
[2022-01-07] VITALS (30 sets, daily range): BP systolic 121–148; BP diastolic 47–68; PULSE 54–78; RESP 12–22; TEMP 36.2–36.6; O2SAT 92–100
[2022-01-07 00:24] LABS: Glucose Point of Care 135 mg/dl (65-105)
[2022-01-07] MEDS: IPRATROPIUM BR 0.02% INH SOLN 0.5 MG/2.5 ML VIAL INHALATION ×4 (02:20→19:45)
[2022-01-07] MEDS: ALBUTEROL SULFATE NEB 2.5 MG/3 ML INH 5 MG INHALATION ×4 (02:20→19:45)
[2022-01-07 05:27] LABS: Alveolar/Arterial O2 Gradient 91.2 mmHg; Base Excess ABG -3.7 mEq/l (+/-2.0); Carboxyhemoglobin 0.2 % THb (0-2.0); Fractional Inspired Oxygen 35 %; HCO3 ABG 22.7 mEq/l (22.0-26.0); Methemoglobin ABG 0.3 %THb (0-1.5); Oxygen Content ABG 16.6 %vol (16.0-22.0); Oxygen Saturation ABG 97.3 % (95.0-100.0); Oxyhemoglobin 96.2 % THb (90.0-100.0); PCO2 ABG 46.4 mmHg (35.0-45.0); PO2 ABG 104.4 mmHg (80.0-100.0); PO2 FiO2 Ratio Arterial Blood 2.98 %; Reduced Hemoglobin 3.3 %THb (0-5.0); Total Hemoglobin 12.2 g/dL (12.0-18.0); pH ABG 7.307 (7.350-7.450)
[2022-01-07 05:28] LABS: Device NON-INVASIVE VENT; Modified Allen's Test Pass; Site Drawn RIGHT RADIAL
[2022-01-07 05:29] LABS: Non-Invasive Expiratory Pressure 6 CMH2O; Non-Invasive Inspiratory Pressure 12 CMH2O; Non-Invasive Vent Rate 10 /MIN
[2022-01-07] MEDS: LEVOTHYROXINE SODIUM 25 MCG TABLET PO (05:44)
[2022-01-07] MEDS: CENTRAL LINE FLUSH 10 ML IV PUSH ×4 (05:45→21:26)
[2022-01-07 05:47] LABS: Basophils Percent Auto 0.1 % (0.2-1.2); Eosinophils Percent Auto 0.1 % (0-4.4); Hematocrit 24.9 % (42.0-52.0); Hemoglobin 8.1 g/dL (14.0-18.0); Immature Granulocyte Absolute 0.06 K/mm3 (0.00-0.031); Immature Granulocyte Percent A 0.6 % (0-0.5); Lymphocytes Absolute Auto 0.87 K/mm3 (0.9-3.2); Lymphocytes Percent Auto 8.4 % (18.3-44.2); Mean Corpuscular HGB Conc 32.5 g/dl (32-36); Mean Corpuscular Hemoglobin 27.6 pg (26-34); Mean Corpuscular Volume 84.7 fl (80-100); Mean Platelet Volume 9.4 fl (7.4-10.4); Monocytes Percent Auto 9.7 % (2.6-8.5); Neutrophils Absolute Auto 8.4 K/mm3 (1.3-6.7); Neutrophils Percent Auto 81.1 % (45.5-73.1); Platelet Count Result 204 k/mm3 (150-375); Red Blood Count 2.94 M/mm3 (4.6-6.20); Red Cell Distribution Width 15.4 % (11.5-14.5); White Blood Count 10.3 K/mm3 (4.5-10.0)
[2022-01-07 06:16] LABS: Alanine Aminotransferase 144 U/L (6-50); Albumin Level 3.1 g/dL (3.5-5.1); Alkaline Phosphatase 242 U/L (38-126); Anion Gap 5 mmol/L (8-16); Aspartate Amino Transferase 91 U/L (17-59); Bilirubin,Total 0.2 mg/dL (0.2-1.3); Blood Urea Nitrogen 84 mg/dL (9-20); Carbon Dioxide 27 mmol/L (22-30); Chloride 105 mmol/L (98-107); Estimated CRCL calculation 45 ml/min; Estimated Glomerular Filt Rate 31; Glucose 107 mg/dL (65-110); Magnesium 2.2 mg/dL (1.6-2.3); Phosphorus 5.5 mg/dL (2.5-4.5); Potassium 5.2 mmol/L (3.4-5.0); Sodium 137 mmol/L (137-145)
--- NOTE | 2022-01-07 08:20 | PM.PNNEP ---
Progress Note: A&P Additional Plan 1. Daniel has acute kidney injury. Renal ultrasound is normal except for a calcified lower pole cyst in the left kidney. Urinalysis shows a little bit of blood but he has a Pereira in. There was some white cells in his urine as well. Urine electrolytes are okay. CK is Not elevated. he is off antibiotics. His creatinine is about the same today. 2. The patient has chronic kidney disease. This is most likely due to hypertension and Vascular disease. His baseline creatinine seems to be in the mid 1s, around 1.4-1.7. 3. the patient has hypertension according to the charts. he is on diltiazem as the only medication for this. systolic is good in the 110 to 130 range. 4. The patient has atrial fibrillation. Is on anticoagulants, diltiazem. HR is good. 5. The patient has anemia. Hemoglobin is up and down. Today it was 8.1. 6. The patient is now on bipap. Discussed with Dr. Guerrero Subjective Date/time seen: 01/07/22 08:20 Interval history: Daniel is off the ventilator. on bipap. he is conversive. he feels better. no pain or sob. Exam Narrative: WDWN in NAD skin no rash head ncat lungs clear bilaterally cor reg no rub abd BS+ nontender and soft ext Trace edema. Objective Data Vital Signs Vital Signs: Vital Signs - 24 hr 01/06/22 18:00 01/06/22 18:00 01/06/22 19:54 Temperature 36.3 C L Pulse Rate 87 87 79 Respiratory Rate 15 Blood Pressure 146/62 H Pulse Oximetry 95 Oxygen Delivery Oxygen Flow Rate Fraction of Inspired Oxygen 01/06/22 19:55 01/06/22 20:00 01/06/22 20:00 Temperature 36.3 C L Pulse Rate 79 72 Respiratory Rate 14 15 Blood Pressure 131/50 L Pulse Oximetry 98 99 Oxygen Delivery Nasal Cannula Oxygen Flow Rate 2 Fraction of Inspired Oxygen 01/06/22 20:04 01/06/22 20:12 01/06/22 22:00 Temperature Pulse Rate 71 63 Respiratory Rate 16 Blood Pressure Pulse Oximetry 98 Oxygen Delivery Nasal Cannula Oxygen Flow Rate 2 Fraction of Inspired Oxygen 01/06/22 22:00 01/06/22 23:16 01/07/22 00:00 Temperature 36.3 C L Pulse Rate 63 63 62 Respiratory Rate 14 12 Blood Pressure 119/45 L Pulse Oximetry 99 99 Oxygen Delivery BiPAP Oxygen Flow Rate Fraction of Inspired Oxygen 01/07/22 00:00 01/07/22 00:00 01/07/22 02:17 Temperature 36.3 C L Pulse Rate 62 56 L Respiratory Rate 14 15 Blood Pressure 134/52 L Pulse Oximetry 99 99 100 Oxygen Delivery BiPAP BiPAP Oxygen Flow Rate Fraction of Inspired Oxygen 35 01/07/22 02:20 01/07/22 02:29 01/07/22 02:00 Temperature 36.4 C L Pulse Rate 54 L 58 L 57 L Respiratory Rate 12 13 12 Blood Pressure 124/49 L Pulse Oximetry 99 Oxygen Delivery Oxygen Flow Rate Fraction of Inspired Oxygen 01/07/22 02:00 01/07/22 03:59 01/07/22 04:00 Temperature Pulse Rate 57 L 60 Respiratory Rate Blood Pressure Pulse Oximetry 100 Oxygen Delivery BiPAP Oxygen Flow Rate Fraction of Inspired Oxygen 35 01/07/22 04:00 01/07/22 05:11 01/07/22 06:00 Temperature 36.4 C L Pulse Rate 60 55 L 57 L Respiratory Rate 12 13 Blood Pressure 135/49 L Pulse Oximetry 99 100 Oxygen Delivery BiPAP Oxygen Flow Rate Fraction of Inspired Oxygen 01/07/22 06:00 01/07/22 08:00 01/07/22 08:00 Temperature 36.2 C L 36.2 C L Pulse Rate 57 L 58 L Respiratory Rate 14 12 Blood Pressure 139/52 L 121/51 L Pulse Oximetry 99 99 99 Oxygen Delivery BiPAP Oxygen Flow Rate Fraction of Inspired Oxygen 35 01/07/22 08:28 01/07/22 08:27 01/07/22 08:38 Temperature Pulse Rate 59 L 59 L 66 Respiratory Rate 15 15 17 Blood Pressure Pulse Oximetry 100 Oxygen Delivery BiPAP Oxygen Flow Rate Fraction of Inspired Oxygen 01/07/22 08:00 01/07/22 09:00 01/07/22 10:00 Temperature 36.3 C L Pulse Rate 56 L 72 Respiratory Rate 18 Blood Pr
[2022-01-07] MEDS: BUDESONIDE RESPULE NEB 0.5 MG/2 ML AMP INHALATION ×2 (08:26→19:47)
[2022-01-07] MEDS: FERROUS SULFATE 324 MG TABLET PO ×2 (08:37→17:23)
[2022-01-07] MEDS: SODIUM POLYSTYRENE SULFONONATE 15 GM/60 ML BTL 30 GM PO (08:37)
[2022-01-07] MEDS: SIMETHICONE 80 MG TAB.CHEW PO ×2 (08:37→17:23)
[2022-01-07] MEDS: DEXTROSE 50% 25 GM/50 ML SYRINGE IV PUSH (08:37)
[2022-01-07] MEDS: PANTOPRAZOLE SODIUM IV 40 MG VIAL IV PUSH (08:37)
[2022-01-07] MEDS: methylPREDNISolone SOD SUCC 40 MG VIAL IV PUSH (08:37)
[2022-01-07] MEDS: APIXABAN 2.5 MG TABLET PO ×2 (08:37→21:26)
[2022-01-07] MEDS: INSULIN HUMAN REGULAR (*BKC) 100 UNITS/ML IV PUSH (08:37)
--- NOTE | 2022-01-07 08:52 | WPDINTPN ---
Progress Note: A&P Assessment and Plan (1) Acute respiratory failure with hypoxia and hypercapnia: Code(s): J96.01 - Acute respiratory failure with hypoxia; J96.02 - Acute respiratory failure with hypercapnia Status: Acute Assessment and Plan: Patient presented with acute shortness of breath, hypoxia, it to be intubated on the field by EMS -extubated yesterday and wore nasal cannula the day and BiPAP at night -ABG done this morning shows mild respiratory acidosis and hypercarbia -chest x-ray this morning 1. Stable airspace opacities in the lower lung zones, consistent with atelectasis versus pneumonia. 2. Stable small pleural effusions. 3. Cardiomegaly. -continue bronchodilators, steroids -hold sedative medication -01/03 CT chest: Small pleural effusions, mild emphysema, Two 8 mm nodules in right lung, which may be infection or atelectasis or less likely malignancy. Noncontrast chest CT is recommended in 3 months. Multinodular goiter. Consider thyroid ultrasound for risk stratification. Mild splenomegaly. (2) Acute on chronic diastolic congestive heart failure: Code(s): I50.33 - Acute on chronic diastolic (congestive) heart failure Status: Acute Assessment and Plan: 12/30/2021 echocardiogram showed EF of 55-60%, grade 1 diastolic dysfunction, no valvular vegetations (3) Chronic obstructive pulmonary disease: Code(s): J44.9 - Chronic obstructive pulmonary disease, unspecified Status: Acute Assessment and Plan: Patient with history of COPD, possible bronchitis on this admission, -Solu-Medrol -continue bronchodilators -continue Pulmicort (4) Chronic anemia: Code(s): D64.9 - Anemia, unspecified Status: Acute Assessment and Plan: Patient with history of chronic anemia -recent B12 and folate were normal, no evidence of acute blood loss -iron studies were consistent with anemia of chronic disease -stool guaiac was negative on 12/27/2021 and 01/03/2022 -continue to monitor -continue iron supplement -will transfuse if hemoglobin < 7.0 (5) Chronic kidney disease: Code(s): N18.9 - Chronic kidney disease, unspecified Status: Acute Assessment and Plan: History of chronic renal disease with baseline creatinine 1.7-2.5 -off IV fluids -could be related to hypoxia, UTI, sepsis -potassium 5.2 likely secondary to respiratory acidosis. Insulin D50 and Lokelma ordered -continue to monitor renal function, electrolytes and urine output -BUN and and creatinine rising could be related to steroids, which will be discontinued (6) UTI due to extended-spectrum beta lactamase (ESBL) producing Escherichia coli: Code(s): N39.0 - Urinary tract infection, site not specified; B96.29 - Other Escherichia coli [E. coli] as the cause of diseases classified elsewhere; Z16.12 - Extended spectrum beta lactamase (ESBL) resistance Status: Acute Assessment and Plan: Recent history of UTI, with ESBL E coli on 12/25/2021 patient is on ertapenem through 01/05/2022 (7) Enterococcus faecalis infection: Code(s): B95.2 - Enterococcus as the cause of diseases classified elsewhere Status: Acute Assessment and Plan: Recent blood cultures grew Enterococcus faecalis on 12/25/2021, patient has been on vancomycin and will complete his course today (8) DVT prophylaxis: Code(s): Z29.9 - Encounter for prophylactic measures, unspecified Status: Acute Assessment and Plan: Continue apixaban for atrial fibrillation, currently in sinus bradycardia (9) Encephalopathy: Code(s): G93.40 - Encephalopathy, unspecified Status: Acute Assessment and Plan: 01/05/2022: Patient became unresponsive on the ventilator, not responding to pain stimulus or sternal rub, stat CT scan of the brain was done, showed moderate cerebral volume loss, chronic small-vessel ischemic changes of the cerebral white matter. ABGs were obtained and were normal,
--- NOTE | 2022-01-07 11:15 | PCNFU ---
Nutrition Follow-Up Complete: Chewing/swallowing difficulty as evidenced by need for altered diet consistency and possible MBS. Goal:Meeting estimated nutritional needs. Pt is progressing towards goal Pt current nutrition is soft and bite sized Renal/diabetic consistent carb diet. Nutrition recommendation: Continue with current plan of care. Last recorded weight is 147.7 kg - stable at this time. Bowel Motility: No recent recorded BM Labs Reviewed: Hgb:8.1, HCT:24.9, Alb:3.1, K:5.2, BUN:84, Cr:2.1 Meds Noted: Mylicon, Protonix, Synthroid, Eliquis, Ferrous Sulfate, Neurontin Skin: right calf-venous stasis Additional Notes: pt has been evaluated by speech. Tube feed now d/c'd. Diet advanced to soft and bite sized level 6 per speech recommendation, with consideration for an MBS to further rule out aspiration. Pt is tolerating diet consistency well, intake 100% this am and reports good appetite. Wt stable. Will monitor intake, wt, labs. Follow up in 5 days.
--- NOTE | 2022-01-07 13:38 | PCPTNOTE ---
Attempted PT eval, pt ostomy bag leaking and had to be changed. RN requested therapy try back later. Will Follow.
--- NOTE | 2022-01-07 16:15 | P.PNIM_ITS ---
Progress Note: A&P Assessment and Plan (1) Acute respiratory failure with hypoxia and hypercapnia: Code(s): J96.01 - Acute respiratory failure with hypoxia; J96.02 - Acute respiratory failure with hypercapnia Status: Acute Assessment and Plan: Presumably due to a combination of COPD and interstitial edema on imaging. Pulmonary embolism seems less likely as he is on apixaban. Currently on mechanical ventilation, being managed by Dr. Guerrero. Chest x-ray reviewed SBT trial and possible extubation in process failed SBT 01/04/2022 CT chest 01/03 small pleural effusion, mild emphysema, 2 8 mm nodules in right lung which may be infectious or atelectasis or less likely malignancy. Noncontrast chest CT is recommended in 3 months. Multi nodule goiter. Consider thyroid ultrasound for the stratification. Mild splenomegaly Extubated 01/06/2022 on BiPAP p.r.n. postextubation Continue to monitor respiratory status (2) Acute on chronic diastolic congestive heart failure: Code(s): I50.33 - Acute on chronic diastolic (congestive) heart failure Status: Acute Assessment and Plan: Interstitial edema noted on chest x-ray. Currently on mechanical ventilation. Started on IV diuresis currently on hold due to worsening renal function echo 12/30/2021 EF 55-60%, grade 1 diastolic dysfunction, no valvular vegetations (3) Chronic obstructive pulmonary disease: Code(s): J44.9 - Chronic obstructive pulmonary disease, unspecified Status: Acute Assessment and Plan: Thick, yellow secretions noted in the ET tube. Sputum culture has been ordered and Continue bronchodilators and Pulmicort Steroid as ordered. (4) Chronic anemia: Code(s): D64.9 - Anemia, unspecified Status: Acute Assessment and Plan: Stable on review of previous labs. (5) Chronic kidney disease: Code(s): N18.9 - Chronic kidney disease, unspecified Status: Acute Assessment and Plan: Creatinine is stable on review of previous labs and will be monitored. (6) Enterococcus faecalis infection: Code(s): B95.2 - Enterococcus as the cause of diseases classified elsewhere Status: Acute Assessment and Plan: Recent hospitalization for ESBL E coli UTI and Enterococcus faecalis bacteremia. Continue vancomycin through 01/07/2022 and ertapenem through 01/05/2022. blood culture positive for Staphylococcus haemolyticus on 1 and Staph epidermis on the other Recheck blood culture x2 comes back positive for Gram-positive cocci in clusters again 1 out of 2 from 01/04/2022 but now 2 order to positive as well Discussed with ID pharmacist. This is while on IV vancomycin. He completed his IV vancomycin now Will remove the left IJ and repeat the blood culture will watch off any an tibiotics for now Repeat blood culture x2 1 from peripheral and 1 from the IJ (7) UTI due to extended-spectrum beta lactamase (ESBL) producing Escherichia coli: Code(s): N39.0 - Urinary tract infection, site not specified; B96.29 - Other Escherichia coli [E. coli] as the cause of diseases classified elsewhere; Z16.12 - Extended spectrum beta lactamase (ESBL) resistance Status: Acute Assessment and Plan: Plan is as detailed above. (8) Encephalopathy: Code(s): G93.40 - Encephalopathy, unspecified Status: Acute Assessment and Plan: 01/05/2022: Patient became unresponsive on the ventilator, not responding to pain stimulus or sternal rub, stat CT scan of the brain was done, showed moderate cerebral volume loss, chronic small-vessel
[2022-01-07] MEDS: ATORVASTATIN 10 MG TABLET PO (21:26)
[2022-01-08] VITALS (25 sets, daily range): BP systolic 138–163; BP diastolic 53–67; PULSE 57–81; RESP 10–22; TEMP 36.1–36.7; O2SAT 91–100; BMI 10.0
[2022-01-08] MEDS: IPRATROPIUM BR 0.02% INH SOLN 0.5 MG/2.5 ML VIAL INHALATION ×3 (02:37→21:45)
[2022-01-08] MEDS: ALBUTEROL SULFATE NEB 2.5 MG/3 ML INH 5 MG INHALATION ×3 (02:37→21:45)
[2022-01-08 04:57] LABS: Legionella pneumophila Ag Ur Not Detected (Not Detected)
[2022-01-08 05:12] LABS: Basophils Percent Auto 0.1 % (0.2-1.2); Eosinophils Percent Auto 0.4 % (0-4.4); Hematocrit 25.2 % (42.0-52.0); Hemoglobin 7.8 g/dL (14.0-18.0); Immature Granulocyte Absolute 0.09 K/mm3 (0.00-0.031); Immature Granulocyte Percent A 0.9 % (0-0.5); Lymphocytes Absolute Auto 0.89 K/mm3 (0.9-3.2); Lymphocytes Percent Auto 9.1 % (18.3-44.2); Mean Corpuscular Volume 87.2 fl (80-100); Mean Platelet Volume 9.3 fl (7.4-10.4); Monocytes Absolute Auto 0.9 K/mm3 (0.1-0.6); Monocytes Percent Auto 8.7 % (2.6-8.5); Neutrophils Absolute Auto 7.9 K/mm3 (1.3-6.7); Neutrophils Percent Auto 80.8 % (45.5-73.1); Platelet Count Result 203 k/mm3 (150-375); Red Blood Count 2.89 M/mm3 (4.6-6.20); Red Cell Distribution Width 15.2 % (11.5-14.5); White Blood Count 9.8 K/mm3 (4.5-10.0)
[2022-01-08 05:22] LABS: Alanine Aminotransferase 130 U/L (6-50); Albumin Level 3.3 g/dL (3.5-5.1); Alkaline Phosphatase 236 U/L (38-126); Anion Gap 5 mmol/L (8-16); Aspartate Amino Transferase 56 U/L (17-59); Bilirubin,Total 0.2 mg/dL (0.2-1.3); Blood Urea Nitrogen 79 mg/dL (9-20); Calcium 7.9 mg/dL (8.4-10.2); Carbon Dioxide 27 mmol/L (22-30); Chloride 105 mmol/L (98-107); Estimated CRCL calculation 45 ml/min; Estimated Glomerular Filt Rate 31; Glucose 100 mg/dL (65-110); Magnesium 2.1 mg/dL (1.6-2.3); Potassium 5.2 mmol/L (3.4-5.0); Sodium 137 mmol/L (137-145)
[2022-01-08] MEDS: LEVOTHYROXINE SODIUM 25 MCG TABLET PO (06:02)
[2022-01-08] MEDS: CENTRAL LINE FLUSH 10 ML IV PUSH ×4 (06:02→20:51)
[2022-01-08] MEDS: UMECLIDINIUM/VILANTEROL 62.5-25 MCG ELLIPTA 1 PUFF INHALATION (08:33)
[2022-01-08] MEDS: BUDESONIDE RESPULE NEB 0.5 MG/2 ML AMP INHALATION ×2 (08:33→21:45)
[2022-01-08] MEDS: PANTOPRAZOLE SODIUM IV 40 MG VIAL IV PUSH (08:53)
[2022-01-08] MEDS: APIXABAN 2.5 MG TABLET PO ×2 (08:53→20:51)
[2022-01-08] MEDS: SIMETHICONE 80 MG TAB.CHEW PO ×2 (08:54→16:57)
[2022-01-08] MEDS: FERROUS SULFATE 324 MG TABLET PO ×2 (08:54→16:57)
--- NOTE | 2022-01-08 14:41 | PM.PNNEP ---
Progress Note: A&P Additional Plan 1. Daniel has acute kidney injury. Renal ultrasound is normal except for a calcified lower pole cyst in the left kidney. Urinalysis shows a little bit of blood but he has a Pereira in. There was some white cells in his urine as well. Urine electrolytes are okay. CK is Not elevated. he is off antibiotics. His creatinine is stable at 2.1. As an outpatient his creatinine is have been all over the place, as high as 2.5 and as low as about 1.4. It is unclear what his chronic baseline really is. At this point he looks good hemodynamically and Infectioun-woodard so will just keep an eye on the creatinine as he recovers from his illness. 2. The patient has chronic kidney disease. This is most likely due to hypertension and vascular disease. His baseline creatinine seems to be in the mid 1s, around 1.4-1.7. 3. the patient has hypertension according to the charts. he is on diltiazem as the only medication for this. systolic is good in the 110 to 140s range. 4. The patient has atrial fibrillation. Is on anticoagulants, diltiazem. HR is good. 5. The patient has anemia. Hemoglobin is up and down. Today it was 7.8. 6. The patient is now on room air Discussed with Dr. Guerrero Subjective Date/time seen: 01/08/22 14:41 Interval history: Daniel is off the ventilator. He is not on oxygen. He is breathing comfortably. Exam Narrative: WDWN in NAD Breathing comfortably. skin no rash head ncat lungs clear bilaterally cor reg no rub or gallop abd BS+ nontender and soft ext Trace edema. Objective Data Vital Signs Vital Signs: Vital Signs - 24 hr 01/07/22 16:00 01/07/22 16:00 01/07/22 16:00 Temperature 36.4 C Pulse Rate 71 69 Respiratory Rate 12 Blood Pressure 137/48 L Pulse Oximetry 95 93 Oxygen Delivery Room Air Oxygen Flow Rate Fraction of Inspired Oxygen 01/07/22 18:00 01/07/22 19:49 01/07/22 19:50 Temperature Pulse Rate 67 65 Respiratory Rate 14 Blood Pressure Pulse Oximetry 96 Oxygen Delivery Room Air Oxygen Flow Rate Fraction of Inspired Oxygen 01/07/22 20:00 01/07/22 20:00 01/07/22 20:00 Temperature 36.4 C Pulse Rate 63 71 Respiratory Rate 12 Blood Pressure 148/53 H Pulse Oximetry 96 96 Oxygen Delivery Room Air Oxygen Flow Rate Fraction of Inspired Oxygen 01/07/22 22:00 01/07/22 22:20 01/08/22 00:00 Temperature Pulse Rate 61 71 63 Respiratory Rate 22 H Blood Pressure Pulse Oximetry 97 Oxygen Delivery BiPAP Oxygen Flow Rate Fraction of Inspired Oxygen 01/08/22 00:00 01/08/22 00:00 01/08/22 02:38 Temperature 36.3 C L Pulse Rate 63 60 Respiratory Rate 12 12 Blood Pressure 159/56 H Pulse Oximetry 99 96 Oxygen Delivery BiPAP Oxygen Flow Rate Fraction of Inspired Oxygen 35 01/07/22 20:20 01/08/22 02:00 01/08/22 04:00 Temperature Pulse Rate 63 61 57 L Respiratory Rate 14 Blood Pressure Pulse Oximetry Oxygen Delivery Oxygen Flow Rate Fraction of Inspired Oxygen 01/08/22 04:00 01/08/22 04:00 01/08/22 02:55 Temperature 36.3 C L Pulse Rate 57 L 64 Respiratory Rate 12 12 Blood Pressure 138/53 L Pulse Oximetry 99 99 Oxygen Delivery BiPAP Oxygen Flow Rate Fraction of Inspired Oxygen 35 01/08/22 02:38 01/08/22 06:00 01/08/22 07:31 Temperature 36.1 C L Pulse Rate 62 58 L 64 Respiratory Rate 12 12 Blood Pressure 138/53 L Pulse Oximetry 99 91 Oxygen Delivery BiPAP Oxygen Flow Rate Fraction of Inspired Oxygen 01/08/22 08:34 01/08/22 08:25 01/08/22 08:35 Temperature Pulse Rate 63 66 Respiratory Rate 15 12 Blood Pressure Pulse Oximetry 96 Oxygen Delivery Room Air Oxygen Flow Rate Fraction of Inspired Oxygen 01/08/22 08:00 01/08/22 09:53 01/08/22 09:53 Temperature Pulse Rate Respiratory Rate Blood Pressure Puls
--- NOTE | 2022-01-08 16:53 | PM.IMPN ---
Progress Note: A&P Assessment and Plan (1) Acute respiratory failure with hypoxia and hypercapnia: Code(s): J96.01 - Acute respiratory failure with hypoxia; J96.02 - Acute respiratory failure with hypercapnia Status: Acute Assessment and Plan: Presumably due to a combination of COPD and interstitial edema on imaging. Pulmonary embolism seems less likely as he is on apixaban. Currently on mechanical ventilation, being managed by Dr. Guerrero. Chest x-ray reviewed SBT trial and possible extubation in process failed SBT 01/04/2022 CT chest 01/03 small pleural effusion, mild emphysema, 2 8 mm nodules in right lung which may be infectious or atelectasis or less likely malignancy. Noncontrast chest CT is recommended in 3 months. Multi nodule goiter. Consider thyroid ultrasound for the stratification. Mild splenomegaly Extubated 01/06/2022 on BiPAP p.r.n. postextubation Continue to monitor respiratory status (2) Acute on chronic diastolic congestive heart failure: Code(s): I50.33 - Acute on chronic diastolic (congestive) heart failure Status: Acute Assessment and Plan: Interstitial edema noted on chest x-ray. Currently on mechanical ventilation. Started on IV diuresis currently on hold due to worsening renal function echo 12/30/2021 EF 55-60%, grade 1 diastolic dysfunction, no valvular vegetations (3) Chronic obstructive pulmonary disease: Code(s): J44.9 - Chronic obstructive pulmonary disease, unspecified Status: Acute Assessment and Plan: Thick, yellow secretions noted in the ET tube. Sputum culture has been ordered and Continue bronchodilators and Pulmicort Steroid as ordered. (4) Chronic anemia: Code(s): D64.9 - Anemia, unspecified Status: Acute Assessment and Plan: Stable on review of previous labs. (5) Chronic kidney disease: Code(s): N18.9 - Chronic kidney disease, unspecified Status: Acute Assessment and Plan: Creatinine is stable on review of previous labs and will be monitored. (6) Enterococcus faecalis infection: Code(s): B95.2 - Enterococcus as the cause of diseases classified elsewhere Status: Acute Assessment and Plan: Recent hospitalization for ESBL E coli UTI and Enterococcus faecalis bacteremia. Continue vancomycin through 01/07/2022 and ertapenem through 01/05/2022. blood culture positive for Staphylococcus haemolyticus on 1 and Staph epidermis on the other Recheck blood culture x2 comes back positive for Gram-positive cocci in clusters again 1 out of 2 from 01/04/2022 but now 2 order to positive as well Discussed with ID pharmacist. This is while on IV vancomycin. He completed his IV vancomycin now Will remove the left IJ and repeat the blood culture will watch off any antibiotics for now Repeat blood culture x2 1 from peripheral and 1 from the IJ (7) UTI due to extended-spectrum beta lactamase (ESBL) producing Escherichia coli: Code(s): N39.0 - Urinary tract infection, site not specified; B96.29 - Other Escherichia coli [E. coli] as the cause of diseases classified elsewhere; Z16.12 - Extended spectrum beta lactamase (ESBL) resistance Status: Acute Assessment and Plan: Plan is as detailed above. (8) Encephalopathy: Code(s): G93.40 - Encephalopathy, unspecified Status: Acute Assessment and Plan: 01/05/2022: Patient became unresponsive on the ventilator, not responding to pain stimulus or sternal rub, stat CT scan of the brain was done, showed moderate cerebral volume loss, chronic small-vessel ischemic changes of the cerebral white matter.? ABGs were obtained and were normal, blood sugars and ammonia levels were normal.? Patient all of a sudden woke up and was back to baseline Carotid Doppler with insignificant stenosis bilateral carotid artery Additional Plan 01/08/2022 interval history: patient with respiratory failure secondary to exacerbation o
[2022-01-08] MEDS: ATORVASTATIN 10 MG TABLET PO (20:51)
[2022-01-09] VITALS (20 sets, daily range): BP systolic 137–160; BP diastolic 56–67; PULSE 67–87; RESP 14–21; TEMP 36–37; O2SAT 93–99
[2022-01-09] MEDS: IPRATROPIUM BR 0.02% INH SOLN 0.5 MG/2.5 ML VIAL INHALATION ×3 (02:30→19:20)
[2022-01-09] MEDS: ALBUTEROL SULFATE NEB 2.5 MG/3 ML INH 5 MG INHALATION ×3 (02:30→19:20)
[2022-01-09] MEDS: LEVOTHYROXINE SODIUM 25 MCG TABLET PO (05:47)
[2022-01-09] MEDS: CENTRAL LINE FLUSH 10 ML IV PUSH ×3 (05:47→20:10)
[2022-01-09 05:57] LABS: Basophils Percent Auto 0.1 % (0.2-1.2); Eosinophils Absolute Auto 0.6 K/mm3 (0-0.3); Hematocrit 27.1 % (42.0-52.0); Hemoglobin 8.4 g/dL (14.0-18.0); Immature Granulocyte Absolute 0.07 K/mm3 (0.00-0.031); Immature Granulocyte Percent A 0.6 % (0-0.5); Lymphocytes Absolute Auto 1.95 K/mm3 (0.9-3.2); Lymphocytes Percent Auto 15.7 % (18.3-44.2); Mean Corpuscular Hemoglobin 27.2 pg (26-34); Mean Corpuscular Volume 87.7 fl (80-100); Mean Platelet Volume 9.4 fl (7.4-10.4); Monocytes Absolute Auto 0.9 K/mm3 (0.1-0.6); Monocytes Percent Auto 7.3 % (2.6-8.5); Neutrophils Absolute Auto 8.8 K/mm3 (1.3-6.7); Neutrophils Percent Auto 71.3 % (45.5-73.1); Platelet Count Result 261 k/mm3 (150-375); Red Blood Count 3.09 M/mm3 (4.6-6.20); Red Cell Distribution Width 15.5 % (11.5-14.5); White Blood Count 12.4 K/mm3 (4.5-10.0)
[2022-01-09 06:10] LABS: Alanine Aminotransferase 92 U/L (6-50); Albumin Level 3.2 g/dL (3.5-5.1); Alkaline Phosphatase 237 U/L (38-126); Anion Gap 8 mmol/L (8-16); Aspartate Amino Transferase 33 U/L (17-59); Bilirubin,Total 0.4 mg/dL (0.2-1.3); Blood Urea Nitrogen 75 mg/dL (9-20); Calcium 7.9 mg/dL (8.4-10.2); Carbon Dioxide 23 mmol/L (22-30); Chloride 106 mmol/L (98-107); Estimated CRCL calculation 45 ml/min; Estimated Glomerular Filt Rate 31; Glucose 82 mg/dL (65-110); Phosphorus 4.9 mg/dL (2.5-4.5); Potassium 5.1 mmol/L (3.4-5.0); Sodium 137 mmol/L (137-145)
[2022-01-09] MEDS: BUDESONIDE RESPULE NEB 0.5 MG/2 ML AMP INHALATION ×2 (08:30→19:20)
[2022-01-09] MEDS: UMECLIDINIUM/VILANTEROL 62.5-25 MCG ELLIPTA 1 PUFF INHALATION (08:31)
[2022-01-09] MEDS: APIXABAN 2.5 MG TABLET PO ×2 (08:47→20:10)
[2022-01-09] MEDS: PANTOPRAZOLE SODIUM IV 40 MG VIAL IV PUSH (08:47)
[2022-01-09] MEDS: FERROUS SULFATE 324 MG TABLET PO ×2 (08:47→17:15)
[2022-01-09] MEDS: SIMETHICONE 80 MG TAB.CHEW PO ×3 (08:48→20:10)
--- NOTE | 2022-01-09 11:45 | PC.NURSE ---
This patient, Bob Simmons, was transferred to [[facility] [place] ] on 01/09/22 at 1145. Personal belongings sent with patient. Report given to [MCKENNA Wolf @ [phone] ]. Appropriate documentation sent with patient.
--- NOTE | 2022-01-09 12:41 | PM.PNNEP ---
Progress Note: A&P Additional Plan 1. Daniel has acute kidney injury. Renal ultrasound is normal except for a calcified lower pole cyst in the left kidney. Urinalysis shows a little bit of blood but he has a Pereira in. There was some white cells in his urine as well. Urine electrolytes are okay. CK is Not elevated. His creatinine is stable at 2.1. perhaps this is a new baseline. 2. The patient has chronic kidney disease. This is most likely due to hypertension and vascular disease. His baseline creatinine seems to be in the mid 1s, around 1.4-1.7? 3. the patient has hypertension according to the charts. he is on diltiazem as the only medication for this. systolic is good in the 110 to 140s range. will begin some Lasix. 4. The patient has atrial fibrillation. Is on anticoagulants, diltiazem. HR is good. 5. The patient has anemia. Hemoglobin is up and down. Today it was 7.8. 6. The patient is now Nasal cannula Subjective Date/time seen: 01/09/22 12:41 Interval history: Daniel is off the ventilator. He is on a small amount of oxygen. He is breathing comfortably. Eating okay. Exam Narrative: WDWN in NAD Breathing comfortably. skin no rash head ncat lungs clear bilaterally cor reg no rub or gallop abd BS+ nontender and soft ext 1+ chronic bilateral edema and no cyanosis Objective Data Vital Signs Vital Signs: Vital Signs - 24 hr 01/08/22 14:00 01/08/22 16:00 01/08/22 16:00 Temperature 36.6 C Pulse Rate 73 81 Respiratory Rate 19 Blood Pressure 159/58 H Pulse Oximetry 96 100 Oxygen Delivery Nasal Cannula Oxygen Flow Rate 2 Fraction of Inspired Oxygen 01/08/22 16:00 01/08/22 18:00 01/08/22 20:02 Temperature 36.7 C Pulse Rate 63 68 68 Respiratory Rate 18 Blood Pressure 163/67 H Pulse Oximetry 98 Oxygen Delivery Oxygen Flow Rate Fraction of Inspired Oxygen 01/08/22 20:00 01/08/22 20:00 01/08/22 22:00 Temperature Pulse Rate 67 68 Respiratory Rate Blood Pressure Pulse Oximetry 98 Oxygen Delivery Nasal Cannula Oxygen Flow Rate 2 Fraction of Inspired Oxygen 01/08/22 21:45 01/08/22 22:19 01/08/22 22:25 Temperature Pulse Rate 72 70 70 Respiratory Rate 16 20 Blood Pressure Pulse Oximetry 97 Oxygen Delivery Nasal Cannula Oxygen Flow Rate 2 Fraction of Inspired Oxygen 01/08/22 22:35 01/08/22 23:54 01/09/22 00:05 Temperature Pulse Rate 71 83 Respiratory Rate 22 H 18 Blood Pressure Pulse Oximetry 97 96 98 Oxygen Delivery BiPAP BiPAP BiPAP Oxygen Flow Rate Fraction of Inspired Oxygen 30 01/09/22 00:00 01/09/22 02:30 01/09/22 02:40 Temperature Pulse Rate 71 76 75 Respiratory Rate 17 17 Blood Pressure Pulse Oximetry Oxygen Delivery Oxygen Flow Rate Fraction of Inspired Oxygen 01/09/22 03:28 01/09/22 00:00 01/09/22 02:00 Temperature 36.7 C Pulse Rate 69 78 Respiratory Rate 16 Blood Pressure 155/58 H Pulse Oximetry 95 97 Oxygen Delivery BiPAP Oxygen Flow Rate Fraction of Inspired Oxygen 30 01/09/22 04:00 01/09/22 04:00 01/09/22 05:55 Temperature 36.8 C Pulse Rate 69 67 74 Respiratory Rate 16 Blood Pressure 145/56 H Pulse Oximetry 99 Oxygen Delivery Oxygen Flow Rate Fraction of Inspired Oxygen 01/09/22 07:29 01/09/22 08:33 01/09/22 08:34 Temperature 37.0 C Pulse Rate 68 76 Respiratory Rate 14 17 Blood Pressure 145/56 H Pulse Oximetry 96 95 Oxygen Delivery Nasal Cannula Oxygen Flow Rate 1 Fraction of Inspired Oxygen 01/09/22 08:00 01/09/22 08:00 01/09/22 10:00 Temperature Pulse Rate 74 76 Respiratory Rate Blood Pressure Pulse Oximetry 98 Oxygen Delivery Nasal Cannula Oxygen Flow Rate 1 Fraction of Inspired Oxygen 01/09/22 10:33 01/09/22 12:06 Temperature 36.9 C Pulse Rate 86 Respiratory Rate 18 Blood Pressure
[2022-01-09] MEDS: FUROSEMIDE 40 MG TABLET PO (17:15)
--- NOTE | 2022-01-09 17:53 | PCRCNOTE ---
Window of time for administration has passed. See next scheduled administration.
[2022-01-09] MEDS: DOCUSATE SODIUM 100 MG CAPSULE PO (20:10)
[2022-01-09] MEDS: ATORVASTATIN 10 MG TABLET PO (20:10)
[2022-01-09] MEDS: ACETAMINOPHEN 325 MG TABLET 650 MG PO (22:53)
[2022-01-10] VITALS (9 sets, daily range): BP systolic 152–156; BP diastolic 47–52; PULSE 78–90; RESP 16–20; TEMP 36.7–36.8; O2SAT 92–100
[2022-01-10] MEDS: CENTRAL LINE FLUSH 10 ML IV PUSH ×3 (05:26→20:33)
[2022-01-10 05:51] LABS: Eosinophils Absolute Auto 0.5 K/mm3 (0-0.3); Eosinophils Percent Auto 3.6 % (0-4.4); Hematocrit 26.3 % (42.0-52.0); Hemoglobin 8.6 g/dL (14.0-18.0); Immature Granulocyte Absolute 0.08 K/mm3 (0.00-0.031); Immature Granulocyte Percent A 0.6 % (0-0.5); Lymphocytes Absolute Auto 1.18 K/mm3 (0.9-3.2); Lymphocytes Percent Auto 8.9 % (18.3-44.2); Mean Corpuscular HGB Conc 32.7 g/dl (32-36); Mean Corpuscular Hemoglobin 27.6 pg (26-34); Mean Corpuscular Volume 84.3 fl (80-100); Mean Platelet Volume 9.2 fl (7.4-10.4); Monocytes Percent Auto 7.4 % (2.6-8.5); Neutrophils Absolute Auto 10.5 K/mm3 (1.3-6.7); Neutrophils Percent Auto 79.5 % (45.5-73.1); Platelet Count Result 253 k/mm3 (150-375); Red Blood Count 3.12 M/mm3 (4.6-6.20); Red Cell Distribution Width 15.7 % (11.5-14.5); White Blood Count 13.2 K/mm3 (4.5-10.0)
[2022-01-10 06:00] LABS: Alanine Aminotransferase 67 U/L (6-50); Albumin Level 3.5 g/dL (3.5-5.1); Alkaline Phosphatase 241 U/L (38-126); Anion Gap 5 mmol/L (8-16); Aspartate Amino Transferase 38 U/L (17-59); Bilirubin,Total 0.7 mg/dL (0.2-1.3); Blood Urea Nitrogen 77 mg/dL (9-20); Carbon Dioxide 24 mmol/L (22-30); Chloride 107 mmol/L (98-107); Estimated CRCL calculation 38 ml/min; Estimated Glomerular Filt Rate 26; Glucose 86 mg/dL (65-110); Magnesium 1.8 mg/dL (1.6-2.3); Potassium 5.6 mmol/L (3.4-5.0); Sodium 136 mmol/L (137-145)
[2022-01-10 06:01] LABS: Phosphorus 5.7 mg/dL (2.5-4.5)
[2022-01-10] MEDS: ALBUTEROL SULFATE NEB 2.5 MG/3 ML INH 5 MG INHALATION ×3 (07:24→19:23)
[2022-01-10] MEDS: BUDESONIDE RESPULE NEB 0.5 MG/2 ML AMP INHALATION ×2 (07:25→19:23)
[2022-01-10] MEDS: IPRATROPIUM BR 0.02% INH SOLN 0.5 MG/2.5 ML VIAL INHALATION ×3 (07:25→19:23)
[2022-01-10] MEDS: UMECLIDINIUM/VILANTEROL 62.5-25 MCG ELLIPTA 1 PUFF INHALATION (07:28)
[2022-01-10] MEDS: LEVOTHYROXINE SODIUM 25 MCG TABLET PO (08:08)
[2022-01-10] MEDS: SIMETHICONE 80 MG TAB.CHEW PO ×4 (08:10→20:33)
[2022-01-10] MEDS: PANTOPRAZOLE SODIUM IV 40 MG VIAL IV PUSH (08:11)
[2022-01-10] MEDS: APIXABAN 2.5 MG TABLET PO ×2 (08:11→20:33)
[2022-01-10] MEDS: FUROSEMIDE 40 MG TABLET PO ×2 (08:11→16:56)
[2022-01-10] MEDS: FERROUS SULFATE 324 MG TABLET PO ×2 (08:11→16:56)
--- NOTE | 2022-01-10 13:13 | PM.PNNEP ---
Progress Note: A&P Assessment and Plan (1) OLIVER (acute kidney injury): Code(s): N17.9 - Acute kidney failure, unspecified Status: Acute Assessment and Plan: etiology not entirely clear has known baseline CKD so perhaps an element of disease progression (i.e. new baseline?) evaluation to date: Renal ultrasound is normal except for a calcified lower pole cyst in the left kidney urinalysis shows a little bit of blood but he has a Pereira in; some white cells in his urine as well (from recent UTI?) urine electrolytes are okay CK is not elevated creatinine has been running in the 2ish range for the last few days (new baseline? - see above) follow trend of repeat labs and UOP (2) Chronic kidney disease, stage 3: Code(s): N18.30 - Chronic kidney disease, stage 3 unspecified Status: Chronic Assessment and Plan: creatinine had been running ~ 1.4 - 1.7mg/dl this would cause him to fluctuate from CKD stage 3a - stage 3b probably from his HTN, vascular disease, and age (3) Hyperkalemia: Code(s): E87.5 - Hyperkalemia Status: Acute Assessment and Plan: as noted in the last few days oral diuretic therapy should help control noted additon of lokelma follow trend (4) Acute respiratory failure with hypoxia and hypercapnia: Code(s): J96.01 - Acute respiratory failure with hypoxia; J96.02 - Acute respiratory failure with hypercapnia Status: Acute Assessment and Plan: resolving/improving thought to be secondary to pulmonary edema + COPD extubated/off ventilator BiPAP prn follow respiratory status (5) Acute on chronic diastolic congestive heart failure: Code(s): I50.33 - Acute on chronic diastolic (congestive) heart failure Status: Acute Assessment and Plan: slow improvement noted currently on oral diuretic therapy recent Echo results noted (12/30/21) EF 55-60%, grade 1 diastolic dysfunction, no valvular vegetations continue current therapy (6) Hypertension: Qualifiers: Hypertension type: unspecified Qualified Code(s): I10 - Essential (primary) hypertension Code(s): I10 - Essential (primary) hypertension Status: Chronic Assessment and Plan: reasonable control at this time follow trend of hemodynamics (7) Anemia: Code(s): D64.9 - Anemia, unspecified Status: Acute Assessment and Plan: probably related to CKD and acute illness consider Epogen while hospitalized follow trend of H/H Will continue to follow. Subjective Date/time seen: 01/10/22 13:30 Chart reviewed -- assuming care from Dr. Sanchez; respiratory status appears to be doing doing better; renal function about the same but potassium is on the higher side of normal so lokelma has been ordered/started; no acute distress voiced at the time of my visit. Exam Narrative: General: WD/WN male in NAD Heart: normal S1 and S2; no rub Lungs: clear to auscultation Abdomen: soft, nontender, nondistended, positive bowel sounds Extremities: no cyanosis or clubbing; 1+ edema Skin: warm and dry Objective Data Vital Signs Vital Signs: Vital Signs Temp Pulse Resp BP Pulse Ox O2 Del Method 01/10/22 07:54 81 18 01/10/22 07:29 85 16 01/10/22 07:29 85 16 92 Room Air 01/09/22 23:35 21 H 96 BiPAP 01/10/22 00:00 36.7 C 86 16 152/47 H 92 01/09/22 22:36 19 96 BiPAP Intake/Output Intake/Output: Intake & Output 01/07/22 01/08/22 01/09/22 01/10/22 23:59 23:59 23:59 23:59 Intake Total 1200 2691 649 4574 Output Total 2300 2150 1275 3350 Balance -1100 -870 -795 -780 Meds/Results Medications: Active Medications Generic Name Dose Route Start Last Admin Trade Name Freq PRN Reason Stop Dose Admin Acetaminophen 650 mg 01/02/22 20:16 01/09/22 22:53 Acetaminophen 325 Mg Tablet PO 650 mg Q8H PRN Administration Pain or Fever
--- NOTE | 2022-01-10 13:13 | P.PNNP_ITS ---
Progress Note: A&P Assessment and Plan (1) OLIVER (acute kidney injury): Code(s): N17.9 - Acute kidney failure, unspecified Status: Acute Assessment and Plan: * etiology not entirely clear * has known baseline CKD so perhaps an element of disease progression (i.e. new baseline?) * evaluation to date: * Renal ultrasound is normal except for a calcified lower pole cyst in the left kidney * urinalysis shows a little bit of blood but he has a Pereira in; some white cells in his urine as well (from recent UTI?) * urine electrolytes are okay * CK is not elevated * creatinine has been running in the 2ish range for the last few days (new baseline? - see above) * follow trend of repeat labs and UOP (2) Chronic kidney disease, stage 3: Code(s): N18.30 - Chronic kidney disease, stage 3 unspecified Status: Chronic Assessment and Plan: * creatinine had been running ~ 1.4 - 1.7mg/dl * this would cause him to fluctuate from CKD stage 3a - stage 3b * probably from his HTN, vascular disease, and age (3) Hyperkalemia: Code(s): E87.5 - Hyperkalemia Status: Acute Assessment and Plan: * as noted in the last few days * oral diuretic therapy should help control * noted additon of lokelma * follow trend (4) Acute respiratory failure with hypoxia and hypercapnia: Code(s): J96.01 - Acute respiratory failure with hypoxia; J96.02 - Acute respiratory failure with hypercapnia Status: Acute Assessment and Plan: * resolving/improving * thought to be secondary to pulmonary edema + COPD * extubated/off ventilator * BiPAP prn * follow respiratory status (5) Acute on chronic diastolic congestive heart failure: Code(s): I50.33 - Acute on chronic diastolic (congestive) heart failure Status: Acute Assessment and Plan: * slow improvement noted * currently on oral diuretic therapy * recent Echo results noted (12/30/21) * EF 55-60%, grade 1 diastolic dysfunction, no valvular vegetations * continue current therapy (6) Hypertension: Qualifiers: Hypertension type: unspecified Qualified Code(s): I10 - Essential (primary) hypertension Code(s): I10 - Essential (primary) hypertension Status: Chronic Assessment and Plan: * reasonable control at this time * follow trend of hemodynamics (7) Anemia: Code(s): D64.9 - Anemia, unspecified Status: Acute Assessment and Plan: * probably related to CKD and acute illness * consider Epogen while hospitalized * follow trend of H/H Will continue to follow. Subjective Date/time seen: 01/10/22 13:30 Chart reviewed -- assuming care from Dr. Sanchez; respiratory status appears to be doing doing better; renal function about the same but potassium is on the higher side of normal so lokelma has been ordered/started; no acute distress voiced at the time of my visit. Exam Narrative: General: WD/WN male in NAD Heart: normal S1 and S2; no rub Lungs: clear to auscultation Abdomen: soft, nontender, nondistended, positive bowel sounds Extremities: no cyanosis or clubbing; 1+ edema Skin: warm and dry Objective Data Vital Signs Vital Signs: Vital Signs Temp Pulse Resp BP Pulse Ox O2 Del Method 01/10/22 07:54 81 18 01/10/22 07:29 85 16 01/10/22 07:29 85 16
[2022-01-10] MEDS: SODIUM ZIRCONIUM CYCLOSILICATE 10 GM POWD.PACK PO ×2 (13:52→17:29)
--- NOTE | 2022-01-10 14:46 | PCCCNOTE ---
On 01/10/22, the student, [Clemencia Lemus], provided care and completed [facility] documentation on this patient. I have reviewed the student's documentation and agree with the findings.
--- NOTE | 2022-01-10 15:00 | PCOTNOTE ---
The OT treatment was not completed 01/10/22. Will continue plan of care.
[2022-01-10] MEDS: ATORVASTATIN 10 MG TABLET PO (20:33)
[2022-01-10] MEDS: DOCUSATE SODIUM 100 MG CAPSULE PO (20:33)
[2022-01-11] VITALS (13 sets, daily range): BP systolic 133–159; BP diastolic 45–59; PULSE 81–86; RESP 12–20; TEMP 36.4–36.8; O2SAT 92–97
[2022-01-11] MEDS: IPRATROPIUM BR 0.02% INH SOLN 0.5 MG/2.5 ML VIAL INHALATION ×4 (01:48→20:32)
[2022-01-11] MEDS: ALBUTEROL SULFATE NEB 2.5 MG/0.5 ML INH 5 MG (01:48)
[2022-01-11] MEDS: CENTRAL LINE FLUSH 10 ML IV PUSH ×2 (05:45→22:12)
[2022-01-11] MEDS: LEVOTHYROXINE SODIUM 25 MCG TABLET PO (05:45)
[2022-01-11 06:06] LABS: Basophils Percent Auto 0.1 % (0.2-1.2); Eosinophils Absolute Auto 0.8 K/mm3 (0-0.3); Eosinophils Percent Auto 9.1 % (0-4.4); Immature Granulocyte Absolute 0.05 K/mm3 (0.00-0.031); Immature Granulocyte Percent A 0.6 % (0-0.5); Lymphocytes Absolute Auto 1.26 K/mm3 (0.9-3.2); Lymphocytes Percent Auto 14.5 % (18.3-44.2); Mean Corpuscular Hemoglobin 27.2 pg (26-34); Mean Platelet Volume 9.5 fl (7.4-10.4); Monocytes Absolute Auto 0.7 K/mm3 (0.1-0.6); Monocytes Percent Auto 7.9 % (2.6-8.5); Neutrophils Absolute Auto 5.9 K/mm3 (1.3-6.7); Neutrophils Percent Auto 67.8 % (45.5-73.1); Platelet Count Result 237 k/mm3 (150-375); Red Blood Count 2.94 M/mm3 (4.6-6.20); Red Cell Distribution Width 15.5 % (11.5-14.5); White Blood Count 8.7 K/mm3 (4.5-10.0)
[2022-01-11 06:29] LABS: Alanine Aminotransferase 49 U/L (6-50); Albumin Level 3.3 g/dL (3.5-5.1); Alkaline Phosphatase 212 U/L (38-126); Anion Gap 5 mmol/L (8-16); Aspartate Amino Transferase 24 U/L (17-59); Bilirubin,Total 0.8 mg/dL (0.2-1.3); Blood Urea Nitrogen 66 mg/dL (9-20); Calcium 7.8 mg/dL (8.4-10.2); Carbon Dioxide 26 mmol/L (22-30); Chloride 104 mmol/L (98-107); Estimated CRCL calculation 41 ml/min; Estimated Glomerular Filt Rate 28; Glucose 92 mg/dL (65-110); Magnesium 1.7 mg/dL (1.6-2.3); Potassium 4.9 mmol/L (3.4-5.0); Sodium 135 mmol/L (137-145)
[2022-01-11] MEDS: ALBUTEROL SULFATE NEB 2.5 MG/3 ML INH 5 MG INHALATION ×3 (07:54→20:32)
[2022-01-11] MEDS: BUDESONIDE RESPULE NEB 0.5 MG/2 ML AMP INHALATION ×2 (07:55→20:32)
[2022-01-11] MEDS: UMECLIDINIUM/VILANTEROL 62.5-25 MCG ELLIPTA 1 PUFF INHALATION (07:56)
[2022-01-11] MEDS: PANTOPRAZOLE SODIUM IV 40 MG VIAL IV PUSH (08:03)
[2022-01-11] MEDS: FUROSEMIDE 40 MG TABLET PO ×2 (08:06→16:53)
[2022-01-11] MEDS: APIXABAN 2.5 MG TABLET PO ×2 (08:07→21:17)
[2022-01-11] MEDS: FERROUS SULFATE 324 MG TABLET PO ×2 (08:07→16:53)
[2022-01-11] MEDS: SIMETHICONE 80 MG TAB.CHEW PO ×4 (08:07→21:17)
[2022-01-11] MEDS: ACETAMINOPHEN 325 MG TABLET 650 MG PO ×2 (08:08→21:18)
--- NOTE | 2022-01-11 12:35 | PM.PNNEP ---
Progress Note: A&P Assessment and Plan (1) OLIVER (acute kidney injury): Code(s): N17.9 - Acute kidney failure, unspecified Status: Acute Assessment and Plan: etiology not entirely clear has known baseline CKD so perhaps an element of disease progression (i.e. new baseline?) evaluation to date: Renal ultrasound is normal except for a calcified lower pole cyst in the left kidney urinalysis shows a little bit of blood but he has a Pereira in; some white cells in his urine as well (from recent UTI?) urine electrolytes are okay CK is not elevated creatinine has been running in the 2ish range for the last few days (new baseline? - see above) perhaps, given his CHF issues, he needs a higher creatinine to maintain his volume status follow trend of repeat labs and UOP (2) Chronic kidney disease, stage 3: Code(s): N18.30 - Chronic kidney disease, stage 3 unspecified Status: Chronic Assessment and Plan: creatinine had been running ~ 1.4 - 1.7mg/dl this would cause him to fluctuate from CKD stage 3a - stage 3b probably from his HTN, vascular disease, and age (3) Hyperkalemia: Code(s): E87.5 - Hyperkalemia Status: Acute Assessment and Plan: as noted in the last few days oral diuretic therapy should help control noted additon of lokelma (2 doses yesterday) - hold for now follow trend (4) Acute respiratory failure with hypoxia and hypercapnia: Code(s): J96.01 - Acute respiratory failure with hypoxia; J96.02 - Acute respiratory failure with hypercapnia Status: Acute Assessment and Plan: resolving/improving thought to be secondary to pulmonary edema + COPD extubated/off ventilator BiPAP prn follow respiratory status (5) Acute on chronic diastolic congestive heart failure: Code(s): I50.33 - Acute on chronic diastolic (congestive) heart failure Status: Acute Assessment and Plan: slow improvement noted currently on oral diuretic therapy recent Echo results noted (12/30/21) EF 55-60%, grade 1 diastolic dysfunction, no valvular vegetations continue current therapy (6) Hypertension: Qualifiers: Hypertension type: unspecified Qualified Code(s): I10 - Essential (primary) hypertension Code(s): I10 - Essential (primary) hypertension Status: Chronic Assessment and Plan: reasonable control at this time follow trend of hemodynamics (7) Anemia: Code(s): D64.9 - Anemia, unspecified Status: Acute Assessment and Plan: probably related to CKD and acute illness consider Epogen while hospitalized follow trend of H/H Not opposed to discharge from renal perspective - he can follow-up with Dr. Sanchez for further management of CKD if he wishes. Will continue to follow. Subjective Date/time seen: 01/11/22 12:35 Appears to be doing reasonably well at the time of my visit; respiratory status continues to improve and renal function seems to be stabilizing as well; no acute issues/events overnight or earlier this AM; no apparent distress noted; feels relatively well. Exam Narrative: General: WD/WN male in NAD Heart: normal S1 and S2; no rub Lungs: clear to auscultation Abdomen: soft, nontender, nondistended, positive bowel sounds Extremities: no cyanosis or clubbing; 1+ edema Skin: warm and dry Objective Data Vital Signs Vital Signs: Vital Signs Temp Pulse Resp BP Pulse Ox O2 Del Method 01/11/22 08:04 81 16 01/11/22 07:56 81 18 01/11/22 07:56 83 20 93 Room Air 01/11/22 03:59 14 97 BiPAP 01/11/22 02:02 84 12 01/11/22 01:51 84 12 01/11/22 01:51 12 97 BiPAP 01/11/22 00:05 12 97 BiPAP 01/11/22 00:00 36.8 C 86 16 133/46 L 94 01/10/22 22:32 88 20 97 BiPAP 01/10/22 22:32 20 97 BiPAP 01/10/22 19:42 90 20 01/10/22 19:22 90 20 01/10/22 19:22 90 20 96
--- NOTE | 2022-01-11 12:35 | P.PNNP_ITS ---
Progress Note: A&P Assessment and Plan (1) OLIVER (acute kidney injury): Code(s): N17.9 - Acute kidney failure, unspecified Status: Acute Assessment and Plan: * etiology not entirely clear * has known baseline CKD so perhaps an element of disease progression (i.e. new baseline?) * evaluation to date: * Renal ultrasound is normal except for a calcified lower pole cyst in the left kidney * urinalysis shows a little bit of blood but he has a Pereira in; some white cells in his urine as well (from recent UTI?) * urine electrolytes are okay * CK is not elevated * creatinine has been running in the 2ish range for the last few days (new baseline? - see above) * perhaps, given his CHF issues, he needs a higher creatinine to maintain his volume status * follow trend of repeat labs and UOP (2) Chronic kidney disease, stage 3: Code(s): N18.30 - Chronic kidney disease, stage 3 unspecified Status: Chronic Assessment and Plan: * creatinine had been running ~ 1.4 - 1.7mg/dl * this would cause him to fluctuate from CKD stage 3a - stage 3b * probably from his HTN, vascular disease, and age (3) Hyperkalemia: Code(s): E87.5 - Hyperkalemia Status: Acute Assessment and Plan: * as noted in the last few days * oral diuretic therapy should help control * noted additon of lokelma (2 doses yesterday) - hold for now * follow trend (4) Acute respiratory failure with hypoxia and hypercapnia: Code(s): J96.01 - Acute respiratory failure with hypoxia; J96.02 - Acute respiratory failure with hypercapnia Status: Acute Assessment and Plan: * resolving/improving * thought to be secondary to pulmonary edema + COPD * extubated/off ventilator * BiPAP prn * follow respiratory status (5) Acute on chronic diastolic congestive heart failure: Code(s): I50.33 - Acute on chronic diastolic (congestive) heart failure Status: Acute Assessment and Plan: * slow improvement noted * currently on oral diuretic therapy * recent Echo results noted (12/30/21) * EF 55-60%, grade 1 diastolic dysfunction, no valvular vegetations * continue current therapy (6) Hypertension: Qualifiers: Hypertension type: unspecified Qualified Code(s): I10 - Essential (primary) hypertension Code(s): I10 - Essential (primary) hypertension Status: Chronic Assessment and Plan: * reasonable control at this time * follow trend of hemodynamics (7) Anemia: Code(s): D64.9 - Anemia, unspecified Status: Acute Assessment and Plan: * probably related to CKD and acute illness * consider Epogen while hospitalized * follow trend of H/H Not opposed to discharge from renal perspective - he can follow-up with Dr. Sanchez for further management of CKD if he wishes. Will continue to follow. Subjective Date/time seen: 01/11/22 12:35 Appears to be doing reasonably well at the time of my visit; respiratory status continues to improve and renal function seems to be stabilizing as well; no acute issues/events overnight or earlier this AM; no apparent distress noted; feels relatively well. Exam Narrative: General: WD/WN male in NAD Heart: normal S1 and S2; no rub Lungs: clear to auscultation Abdomen: soft, nontender, nondistended, positive bowel sounds Extremities: no cyanosis or clubbing; 1+ edema Skin: warm and dry Objective Data Vital Signs Vital Signs:
--- NOTE | 2022-01-11 12:59 | PM.DS ---
DS: Admitting Diagnosis Discharge Date 01/11/2022 Admitting Diagnosis shortness of breath DS: Discharge Diagnosis Discharge Diagnosis (1) Acute respiratory failure with hypoxia and hypercapnia: Code(s): J96.01 - Acute respiratory failure with hypoxia; J96.02 - Acute respiratory failure with hypercapnia Status: Acute (2) Acute on chronic diastolic congestive heart failure: Code(s): I50.33 - Acute on chronic diastolic (congestive) heart failure Status: Acute (3) Chronic obstructive pulmonary disease: Code(s): J44.9 - Chronic obstructive pulmonary disease, unspecified Status: Acute (4) Chronic anemia: Code(s): D64.9 - Anemia, unspecified Status: Chronic (5) Chronic kidney disease: Code(s): N18.9 - Chronic kidney disease, unspecified Status: Acute (6) Enterococcus faecalis infection: Code(s): B95.2 - Enterococcus as the cause of diseases classified elsewhere Status: Acute (7) UTI due to extended-spectrum beta lactamase (ESBL) producing Escherichia coli: Code(s): N39.0 - Urinary tract infection, site not specified; B96.29 - Other Escherichia coli [E. coli] as the cause of diseases classified elsewhere; Z16.12 - Extended spectrum beta lactamase (ESBL) resistance Status: Acute (8) Encephalopathy: Code(s): G93.40 - Encephalopathy, unspecified Status: Acute DS: Summary Hospital Course Reason for hospitalization: Chief Complaint: Shortness of breath. Narrative: This is a 71-year-old male with paraplegia, neurogenic bladder with indwelling Pereira catheter, chronic kidney disease, diastolic congestive heart failure, paroxysmal atrial fibrillation, chronic obstructive pulmonary disease, and hypertension who presented to the emergency department via EMS from [facility] for evaluation of shortness of breath. He is known to the hospitalist service with a recent admission just last week in which he was treated for sepsis related to a complicated urinary tract infection. He was discharged 2 days ago on IV vancomycin for Enterococcus faecalis in 1 of 2 blood cultures. According to his daughter, the patient seemed to be in his usual state of health when he was discharged from the hospital. Last evening he was apparently not as interactive as normal and did not want to eat much dinner. This morning he apparently refused breakfast and staff report that he became increasingly short of breath as the morning went on, eventually prompting a call to emergency services.? At on EMS arrival he was hypoxic with an SpO2 of 83% on room air. He was placed on CPAP however was unable to tolerate that or [id number] and he was subsequently sedated and intubated in the field due to respiratory distress. ABG on arrival showed a pH of 7.197 and a pCO2 of 53.8. Labs did not show any significant deviations from baseline and chest x-ray showed cardiomegaly with interstitial edema. He has been stable in the emergency department and is being transferred to the ICU for further care. Hospital Course: patient with respiratory failure secondary to exacerbation of COPD with history of intertitial? pulmonary edema, patient is off ventilator has been using BiPAP as needed and at night,? patient is being treated with bronchodilator and was treated with steroid currently patient states feeling much better now currently on RA,? patient with UTi with E coli ESBL completed course of antibiotics on 01/05, Patient repeat blood culture are negative, however today patient c/o dysuria while on Pereira, will collect urine for culture,? Patient with OLIVER on CKD, seen by Dr. Sanchez, his potassium is trending up, will start patient on Lokelma and monitor,? patient clinically symptoms have improved patient patient was? transferred out of ICU to med surg, will follow and continue to monitor. today patient is clinically stable on room air has no complaint will discharge the patient home today.
[2022-01-11 14:21] LABS: EDCOVIDSCREEN Negative (Negative)
[2022-01-11] MEDS: NEOMYCIN/POLYMYXIN/BACITRACIN OINTMENT PACKET 1 PACKET (16:39)
[2022-01-11] MEDS: DOCUSATE SODIUM 100 MG CAPSULE PO (21:17)
[2022-01-11] MEDS: ATORVASTATIN 10 MG TABLET PO (22:12)
== END 2022-01-12 00:10 | DRG 207 ==
LOC: ANHED 15:14 → ANHICU 21:00 → ANH3MEDSUR 01-10 11:24 → ANHICU 01-13 10:59
PROVIDERS: Internal Medicine; Internal Medicine Nephrology; Physician Assistant; Admitting Provider Internal Medicine; Emergency Provider Emergency Medicine; PCP Internal Medicine; Visit Provider Family Medicine
DX: J44.1 Chronic obstructive pulmonary disease with (acute) exacerbation (principal); J96.01 Acute respiratory failure with hypoxia; I50.33 Acute on chronic diastolic (congestive) heart failure; J96.02 Acute respiratory failure with hypercapnia; N39.0 Urinary tract infection, site not specified; Z16.12 Extended spectrum beta lactamase (ESBL) resistance; G82.22 Paraplegia, incomplete; G93.40 Encephalopathy, unspecified; N17.9 Acute kidney failure, unspecified; I13.0 Hypertensive heart and chronic kidney disease with heart failure and stage 1 through stage 4 chronic kidney disease, or unspecified chronic kidney disease; D64.9 Anemia, unspecified; B95.2 Enterococcus as the cause of diseases classified elsewhere; B96.29 Other Escherichia coli [E. coli] as the cause of diseases classified elsewhere; E03.9 Hypothyroidism, unspecified; K21.9 Gastro-esophageal reflux disease without esophagitis; N18.32 Chronic kidney disease, stage 3b; I48.91 Unspecified atrial fibrillation; Z83.3 Family history of diabetes mellitus; Z20.822 Contact with and (suspected) exposure to COVID-19; I73.9 Peripheral vascular disease, unspecified; E66.01 Morbid (severe) obesity due to excess calories; Z82.49 Family history of ischemic heart disease and other diseases of the circulatory system; Z79.899 Other long term (current) drug therapy; Z87.891 Personal history of nicotine dependence; Z87.440 Personal history of urinary (tract) infections
CPT/HCPCS: 36415; 36600; 70450; 71045; 71250; 74018; 76775; 80048; 80053; 80202; 81001; 82140; 82274; 82375; 82550; 82570; 82805; 82948; 83050; 83605; 83735; 84100; 84156; 84300; 84443; 84484; 85025; 85027; 85610; 85730; 86140; 87040; 87147; 87181; 87186; 87426; 87449; 87899; 92610; 93005; 93880; 94002; 94003; 94640; 96365; 96367; 97110; 97162; 97166; 97530; 99285; A9270; C9113; C9803; J0696; J1335; J1650; J1815; J1940; J2250; J2704; J2920; J2930; J3010; J3370; J3475; J7030; J7120

== ENCOUNTER 2022-01-15 16:11 | Inpatient (IN) | payer MEDICARE, BC, MEDICAID, SELFPAY ==
[2022-01-15] VITALS (9 sets, daily range): BP systolic 114–169; BP diastolic 50–78; PULSE 59–73; RESP 13–20; TEMP 36.3–36.7; O2SAT 90–100
--- NOTE | ~2022-01-15 | CT_ITS ---
EXAMINATION: CT brain wo con DATE: 01/15/2022 22:24 INDICATION: AMS . TECHNIQUE: Computed tomography (CT) of the head was performed without intravenous contrast. The mA wa s adjusted according to patient size. Iterative reconstruction technique was employed. The dose-lengt h product was 681.00 mGy-cm. COMPARISON: 01/05/2022. FINDINGS: No acute intracranial hemorrhage or extra-axial fluid collection. No hydrocephalus, mass, or herniation. No acute ischemic infarct. Unremarkable dural venous sinus attenuation. No acute osseous abnormality. Trace right mastoid effusion, otherwise the aerated spaces are clear. Mild atrophy and chronic white matter change. Atherosclerotic intracranial calcifications. IMPRESSION: No acute intracranial process. Reviewed, dictated and finalized at location K.
--- NOTE | ~2022-01-15 | XR_ITS ---
EXAMINATION: XR chest 1V portable DATE: 01/16/2022 06:00 INDICATION: Altered mental status TECHNIQUE: frontal view of the chest was obtained. COMPARISON: Chest radiograph dated 01/07/2022 FINDINGS: Decrease in now minimal hazy opacities at the right lung base likely representing small right pleural effusion and mild streaky opacities at the bilateral lung bases. No pneumothorax or left pleural eff usion. Cardiomegaly. Median sternotomy wires. IMPRESSION: 1. Significant decrease in opacities at the bilateral lung bases with residual small right pleural ef fusion and minimal streaky basilar atelectasis versus less likely pneumonia. 2. Cardiac megalies. Reviewed, dictated and finalized at location A. IMPRESSION: 1. Significant decrease in opacities at the bilateral lung bases with residual small right pleural effusion and minimal streaky basilar atelectasis versus les s likely pneumonia. 2. Cardiac megalies.
--- NOTE | ~2022-01-15 | XR_ITS ---
XR chest 1V portable DATE: 01/17/2022 05:54 INDICATION: Shortness of breath TECHNIQUE: Portable upright AP chest on 01/17/2022 at 0546 hours COMPARISON: 01/16/2022 portable AP chest at 0545 hours 01/03/2022 CT chest FINDINGS: Cardiomegaly. Aortic arch calcification. Minimal infiltrate or atelectasis in the lung bases, stable or minimally improved since 01/16/2022. No pleural effusion or pneumothorax is evident. IMPRESSION: Minimal infiltrate or atelectasis at the lung bases stable or minimally improved since Reviewed, dictated and finalized at location A. IMPRESSION: Minimal infiltrate or atelectasis at the lung bases stable or minim ally improved since 01/16/2022
--- NOTE | 2022-01-15 16:22 | ECG_ITS ---
Measurements Intervals [place] Rate: 55 P: 81 WV: 168 QRS: 16 QRSD: 111 T: 25 QT: 385 QTc: 370 Interpretive Statements SINUS BRADYCARDIA LOW QRS VOLTAGE IN PRECORDIAL LEADS [QRS DEFLECTION < 1.0 mV IN CHEST LEADS] POOR R-WAVE PROGRESSION, CANNOT RULE OUT OLD ANTERIOR UT. COMPARED TO ECG 01/02/2022 14:13:51 SINUS BRADYCARDIA NOW PRESENT Electronically Signed On 01-15-2022 22:50:26 CDT by Toma Padgett M.D.
[2022-01-15 16:49] LABS: Basophils Percent Auto 0.3 % (0.2-1.2); Eosinophils Absolute Auto 0.6 K/mm3 (0-0.3); Eosinophils Percent Auto 6.2 % (0-4.4); Hematocrit 25.8 % (42.0-52.0); Hemoglobin 8.1 g/dL (14.0-18.0); Immature Granulocyte Absolute 0.04 K/mm3 (0.00-0.031); Immature Granulocyte Percent A 0.4 % (0-0.5); Lymphocytes Absolute Auto 1.28 K/mm3 (0.9-3.2); Mean Corpuscular HGB Conc 31.4 g/dl (32-36); Mean Corpuscular Hemoglobin 27.4 pg (26-34); Mean Corpuscular Volume 87.2 fl (80-100); Mean Platelet Volume 9.4 fl (7.4-10.4); Monocytes Percent Auto 10.2 % (2.6-8.5); Neutrophils Absolute Auto 6.9 K/mm3 (1.3-6.7); Neutrophils Percent Auto 69.9 % (45.5-73.1); Platelet Count Result 218 k/mm3 (150-375); Red Blood Count 2.96 M/mm3 (4.6-6.20); Red Cell Distribution Width 15.9 % (11.5-14.5); White Blood Count 9.9 K/mm3 (4.5-10.0)
[2022-01-15 16:51] LABS: Appearance Urine Clear (Clear); Bilirubin Urine Negative (Negative); Blood Urine Trace-lysed (Negative); Color Urine Yellow (Yellow); Glucose Urine UA Negative (Negative); Ketones Urine Negative (Negative); Leukocyte Esterase Ur 2+ LEU/UL (Negative); Nitrate Urine Negative (Negative); Protein Urine Negative (Negative); Urobilinogen Urine 0.2 mg/dL (<2.0)
[2022-01-15 16:57] LABS: Alanine Aminotransferase 27 U/L (6-50); Albumin Level 3.8 g/dL (3.5-5.1); Alkaline Phosphatase 172 U/L (38-126); Anion Gap 8 mmol/L (8-16); Aspartate Amino Transferase 22 U/L (17-59); Bilirubin,Total 0.3 mg/dL (0.2-1.3); Blood Urea Nitrogen 60 mg/dL (9-20); Calcium 8.1 mg/dL (8.4-10.2); Carbon Dioxide 28 mmol/L (22-30); Chloride 105 mmol/L (98-107); Estimated CRCL calculation 35 ml/min; Estimated Glomerular Filt Rate 24; Glucose 59 mg/dL (65-110); Potassium 4.1 mmol/L (3.4-5.0); Sodium 141 mmol/L (137-145)
[2022-01-15 17:09] LABS: Bacteria Urine Trace /hpf; Mucus Urine Rare /lpf; WBC Urine 31-50 /hpf
[2022-01-15 17:10] LABS: Add Urine Microscopic? YES
[2022-01-15 18:01] LABS: Glucose Point of Care 74 mg/dl (65-105)
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
[2022-01-15 20:40] LABS: Glucose Point of Care 107 mg/dl (65-105)
[2022-01-15] MEDS: SODIUM CHLORIDE 0.9% IV 1,000 ML 999 ML IV CONT (20:53)
[2022-01-15 20:57] LABS: Glucose Point of Care 178 mg/dl (65-105)
[2022-01-15] MEDS: DEXTROSE 50% 25 GM/50 ML SYRINGE IV PUSH (21:22)
--- NOTE | 2022-01-15 21:22 | PC.NURSE ---
2110 DEXTROSE GIVEN PER ORIGINAL ORDER, DR. TAY NOTIFIED AND NO CHANGES AT THIS TIME
--- NOTE | 2022-01-15 21:24 | PC.NURSE ---
MEPILEX X 2 TO LATERAL RLE, MEPILEX TO COCCYX AREA. DAUGHTER REPORTS WOUND NURSE MANAGES WOUNDS
[2022-01-16] VITALS (7 sets, daily range): BP systolic 103–149; BP diastolic 49–97; PULSE 64–84; RESP 16–20; TEMP 36.1–36.9; O2SAT 91–100
[2022-01-16 00:06] LABS: Glucose Point of Care 115 mg/dl (65-105)
[2022-01-16 00:57] LABS: SARS-CoV-2 RNA PCR Negative
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
--- NOTE | 2022-01-16 02:35 | ADMGEN ---
This patient, Bob Simmons, was admitted to [facility] Surg Room 309-01. Patient/family oriented to hospital policies and general routines including ID bracelet, bed and alarms, visiting hours, pain management, procedures, bathroom and other care routines, personal items, smoking policy, room service/diet, and visiting hours. Information on how to activate the Rapid Response Team has been discussed. Patient/Family are encouraged to report perceived risks to care and to ask questions if they do not understand what they are told or what they should do.
[2022-01-16 03:02] LABS: Glucose Point of Care 110 mg/dl (65-105)
[2022-01-16 06:40] LABS: Basophils Percent Auto 0.3 % (0.2-1.2); Eosinophils Absolute Auto 0.6 K/mm3 (0-0.3); Eosinophils Percent Auto 5.4 % (0-4.4); Hematocrit 26.5 % (42.0-52.0); Hemoglobin 8.5 g/dL (14.0-18.0); Immature Granulocyte Absolute 0.04 K/mm3 (0.00-0.031); Immature Granulocyte Percent A 0.4 % (0-0.5); Lymphocytes Absolute Auto 1.31 K/mm3 (0.9-3.2); Lymphocytes Percent Auto 11.6 % (18.3-44.2); Mean Corpuscular HGB Conc 32.1 g/dl (32-36); Mean Corpuscular Hemoglobin 27.5 pg (26-34); Mean Corpuscular Volume 85.8 fl (80-100); Mean Platelet Volume 10.1 fl (7.4-10.4); Monocytes Absolute Auto 0.8 K/mm3 (0.1-0.6); Monocytes Percent Auto 7.4 % (2.6-8.5); Neutrophils Absolute Auto 8.5 K/mm3 (1.3-6.7); Neutrophils Percent Auto 74.9 % (45.5-73.1); Platelet Count Result 235 k/mm3 (150-375); Red Blood Count 3.09 M/mm3 (4.6-6.20); Red Cell Distribution Width 15.8 % (11.5-14.5); White Blood Count 11.3 K/mm3 (4.5-10.0)
[2022-01-16 06:57] LABS: Anion Gap 8 mmol/L (8-16); Blood Urea Nitrogen 51 mg/dL (9-20); Carbon Dioxide 25 mmol/L (22-30); Chloride 109 mmol/L (98-107); Estimated CRCL calculation 38 ml/min; Estimated Glomerular Filt Rate 27; Glucose 100 mg/dL (65-110); Potassium 3.8 mmol/L (3.4-5.0); Sodium 142 mmol/L (137-145)
[2022-01-16 08:01] LABS: Glucose Point of Care 98 mg/dl (65-105)
[2022-01-16] MEDS: SIMETHICONE 80 MG TAB.CHEW PO ×4 (09:22→21:57)
[2022-01-16] MEDS: PREGABALIN (*CRX) 75 MG CAPSULE PO ×3 (09:22→17:33)
[2022-01-16] MEDS: BACLOFEN 10 MG TABLET PO ×2 (09:22→21:57)
[2022-01-16] MEDS: DOCUSATE SODIUM 100 MG CAPSULE PO ×2 (09:22→21:57)
[2022-01-16] MEDS: APIXABAN 2.5 MG TABLET PO ×2 (10:00→21:57)
[2022-01-16] MEDS: GABAPENTIN 400 MG CAPSULE PO ×3 (10:00→17:34)
[2022-01-16] MEDS: FLUCONAZOLE 150 MG TABLET BY MOUTH (10:00)
[2022-01-16] MEDS: ATORVASTATIN 10 MG TABLET PO (10:00)
[2022-01-16] MEDS: dilTIAZem HCL 30 MG TABLET PO ×3 (10:00→21:57)
[2022-01-16] MEDS: PANTOPRAZOLE 40 MG TABLET PO (10:00)
[2022-01-16] MEDS: LEVOTHYROXINE SODIUM 25 MCG TABLET PO (10:00)
[2022-01-16] MEDS: FERROUS SULFATE 324 MG TABLET PO ×3 (10:00→17:33)
[2022-01-16] MEDS: FLUTICASONE PROPIONATE 0.05% NA SPR 16 GM BTL (*BKC) 1 SPRAY NASAL (10:01)
[2022-01-16] MEDS: MAGNESIUM OXIDE 400 MG TABLET PO (11:52)
[2022-01-16 11:58] LABS: Glucose Point of Care 112 mg/dl (65-105)
--- NOTE | 2022-01-16 13:26 | PM.IMPN ---
Progress Note: A&P Assessment and Plan (1) Acute UTI: Code(s): N39.0 - Urinary tract infection, site not specified Status: Acute Assessment and Plan: CBC, CMP, UA, reviewed pending urine culture if needed Follow temp curve, cultures, WBC, and VS Imipenem 1g IV q8h patient has a history of ESBL and E.coli--pending cultures (2) Delirium: Code(s): R41.0 - Disorientation, unspecified Status: Acute Assessment and Plan: resolved (3) OLIVER (acute kidney injury): Code(s): N17.9 - Acute kidney failure, unspecified Status: Acute Assessment and Plan: likely pre renal azotemia continue gentle IV fluids continue to monitor (4) Chronic kidney disease, stage 3: Code(s): N18.30 - Chronic kidney disease, stage 3 unspecified Status: Chronic Assessment and Plan: continue to monitor (5) Chronic obstructive pulmonary disease: Code(s): J44.9 - Chronic obstructive pulmonary disease, unspecified Status: Acute Assessment and Plan: not actively wheezing (6) Acute respiratory failure with hypoxia and hypercapnia: Code(s): J96.01 - Acute respiratory failure with hypoxia; J96.02 - Acute respiratory failure with hypercapnia Status: Acute Assessment and Plan: on supplemental oxygen (7) Atrial fibrillation: Code(s): I48.91 - Unspecified atrial fibrillation Status: Acute Assessment and Plan: rate controlled and anticoagulated (8) Paraplegia: Onset Date: 1984 Code(s): G82.20 - Paraplegia, unspecified Status: Acute Assessment and Plan: bed-bound (9) Chronic indwelling Pereira catheter: Code(s): Z97.8 - Presence of other specified devices Status: Acute Assessment and Plan: Pereira catheter care (10) Sacral wound: Code(s): S31.000A - Unspecified open wound of lower back and pelvis without penetration into retroperitoneum, initial encounter Status: Acute Assessment and Plan: Patient reported a sacral wound, unable to evaluate during my encounter. Consult Wound Care and obtain wound culture to sacral wound. Subjective Date/time seen: 01/16/22 13:26 patient is alert and oriented. He was lying in bed. He is bed ridden. Patient does have a history of ESBL and E coli and urine. He does have a chronic Pereira catheter. Patient an echo g performed which revealed an LVEF of 55-60% with grade 1 diastolic heart failure. Patient also has an ostomy that appears to have draining liquid stools-patient reports this is a normal stool output. Patient also has bilateral lower extremity venous stasis dermatitis. Review of Systems Review of Systems: All systems reviewed & are unremarkable except as noted in HPI and below Exam Narrative: General: No acute distress. Morbidly obese pleasant male Mental Status: Awake, alert and oriented to person, place, and time with clear speech. Skin: Skin in warm, dry and intact without rashes or lesions. wound to the right lower extremity lateral aspect. reported a sacral wound, unable to evaluate Head: Normocephalic and atraumatic. Eyes: Conjunctivae are clear without exudates or hemorrhage. Sclera is non-icteric. EOM are intact, PERRLA. Ears: The external ear and canal are non-tender and without swelling or discharge. Nose: Nasal mucosa is pink and moist. Septum midline. Nares patent bilaterally. Throat: Oral mucosa pink and moist with good dentition. Tongue midline. Neck: The neck supple without adenopathy. Trachea midline. No JVD. Cardiac: S1 and S2 regular rate and rhythm. No murmurs, gallops, or rubs auscultated. Respiratory: Chest wall symmetric, nontender and without deformity or trauma. Respirations even and unlabored. Lung sounds are clear to auscultation in all lobes bilaterally without wheezes, rhonchi, or rales. Abdominal: Abdomen soft, round and non-tender to palpation. Bowel sounds present and nor
[2022-01-16] MEDS: IPRATROPIUM BR 0.02% INH SOLN 0.5 MG/2.5 ML VIAL INHALATION ×2 (15:29→21:10)
[2022-01-16] MEDS: UMECLIDINIUM/VILANTEROL 62.5-25 MCG ELLIPTA 1 PUFF INHALATION (15:33)
[2022-01-16] MEDS: ALBUTEROL SULFATE NEB 2.5 MG/0.5 ML INH (15:34)
--- NOTE | 2022-01-16 15:43 | PM.CNNEP ---
Assessment and Plan Assessment and plan (1) OLIVER (acute kidney injury): Code(s): N17.9 - Acute kidney failure, unspecified Status: Acute Assessment and Plan: on recent hospital discharge, creatinine was running 21 - 2.3mg/dl suspicion was that might be his new baseline however, suspected UTI may be playing a role follow trend of repeat labs and UOP watch fluid status closely (2) Chronic kidney disease, stage 3: Code(s): N18.30 - Chronic kidney disease, stage 3 unspecified Status: Chronic Assessment and Plan: creatinine had been running ~ 1.4 - 1.7mg/dl (prior to recent hospitalization) this would cause him to fluctuate from CKD stage 3a - stage 3b probably from his HTN, vascular disease, and age (3) Acute UTI: Code(s): N39.0 - Urinary tract infection, site not specified Status: Acute Assessment and Plan: follow culture data on IV antibiotics (4) Altered mental status: Code(s): R41.82 - Altered mental status, unspecified Status: Acute Assessment and Plan: possibly secondary to acute infection (#3) follow mentation Will continue to follow. History of Present Illness Reason for Consult Consult date: 01/16/22 Reason for consult: chronic renal failure Chief Complaint Chief complaint: Acute kidney injury, delirium, UTI History of Present Illness Narrative: The patient's 71-year-old male with an extensive past medical history as outlined below who presented to [facility] Emergency room for further evaluation of altered mental status. The patient was just recently discharged from [facility] due to sepsis and acute respiratory failure that required intubation and mechanical ventilation. Ventrally, with aggressive medical care, his overall condition improved and he was subsequently discharged to a nursing facility for ongoing management of his chronic medical issues and problems. Apparently, on the day of admission, the nursing staff noted that he was confused and lethargic when he is usually alert and oriented x3. Given this significant change, he was transferred to the emergency room for further evaluation. Workup and evaluation in the emergency room demonstrated the patient to be hemodynamically stable but clearly quite altered with regard to his mental status as he was unable to provide any history and that led to his subsequent presentation. Routine blood test demonstrated labs consistent with his chronic kidney disease and somewhat close to what his creatinine was on discharge. His urinalysis was highly suggestive of a urinary tract infection and there was some concern that his sacral wound was also a potential source of infection as well. Given his complex medical history and the constellation of symptoms that led to his presentation to the emergency room, appropriate cultures were obtained he was started on broad-spectrum IV antibiotic therapy with subsequent admission to the hospital for further treatment. Renal consultation was requested due to his chronic kidney disease. The patient is somewhat familiar to me as I took care of him during his last hospitalization here for acute kidney injury on top of his baseline kidney disease. During that hospital stay, his creatinine never normalized to what his previous baseline was and it was felt that his current creatinine at that time was probably a new baseline with regard to his chronic kidney disease. His volume status, electrolytes, and clearance were acceptable why the time of discharge although there was some hope that perhaps maybe his kidney function would eventually return to his previous baseline with ongoing supportive therapy. Currently, the time my visit, he does not appear to be in acute distress but his mental status does not appear to be at baseline. [facility] Past Medical History Medical History Atrial
[2022-01-16 16:45] LABS: Glucose Point of Care 108 mg/dl (65-105)
[2022-01-16] MEDS: SILVERGEL (ELTA) 45 ML 1 APPLIC TOPICAL (17:33)
[2022-01-16] MEDS: EUCERIN CREAM 120 GM JAR 1 APPLIC TOPICAL (17:33)
[2022-01-16 18:26] LABS: Base Excess ABG 0.5 mEq/l (+/-2.0); Fractional Inspired Oxygen 21 %; HCO3 ABG 24.3 mEq/l (22.0-26.0); Oxygen Content ABG 12.7 %vol (16.0-22.0); Oxygen Saturation ABG 98.1 % (95.0-100.0); Oxyhemoglobin 96.4 % THb (90.0-100.0); PCO2 ABG 35.4 mmHg (35.0-45.0); PO2 ABG 106.3 mmHg (80.0-100.0); PO2 FiO2 Ratio Arterial Blood 5.06 %; Total Hemoglobin 9.2 g/dL (12.0-18.0); pH ABG 7.454 (7.350-7.450)
[2022-01-16 18:28] LABS: Modified Allen's Test Pass; Site Drawn RIGHT RADIAL
[2022-01-16] MEDS: BUDESONIDE RESPULE NEB 0.5 MG/2 ML AMP INHALATION (21:09)
[2022-01-16] MEDS: MELATONIN 5 MG TABLET PO (21:57)
[2022-01-16 22:05] LABS: Glucose Point of Care 129 mg/dl (65-105)
[2022-01-17] VITALS (8 sets, daily range): BP systolic 104–137; BP diastolic 45–55; PULSE 65–78; RESP 14–20; TEMP 36.4–37.1; O2SAT 95–97
[2022-01-17 02:45] LABS: Amphetamine Screen Urine Negative (Negative); Barbiturate Screen Urine Negative (Negative); Benzodiazepines Screen Urine Negative (Negative); Cannabinoid Screen Urine Negative (Negative); Cocaine Screen Urine Negative (Negative); Methadone Screen Urine Negative (Negative); Opiate Screen Urine Negative (Negative); Phencyclidine Screen Urine Negative (Negative)
[2022-01-17] MEDS: LEVOTHYROXINE SODIUM 25 MCG TABLET PO (05:30)
[2022-01-17] MEDS: dilTIAZem HCL 30 MG TABLET PO ×3 (05:30→20:42)
--- NOTE | 2022-01-17 06:42 | PM.IMPN ---
Progress Note: A&P Assessment and Plan (1) Sacral wound: Code(s): S31.000A - Unspecified open wound of lower back and pelvis without penetration into retroperitoneum, initial encounter Status: Acute Assessment and Plan: Sacral wound, unable to evaluate Consulted wound care and wound cultures were obtained. (2) Altered mental status: Code(s): R41.82 - Altered mental status, unspecified Status: Acute Assessment and Plan: Resolved (3) OLIVER (acute kidney injury): Code(s): N17.9 - Acute kidney failure, unspecified Status: Acute Assessment and Plan: Recent hospital discharge the patient's creatinine was running between 2.1-2.3 Suspect this is the patient's new baseline 2/2 CKD stage IIIB Suspected urinary tract infection may play a role Continue to monitor lab values Monitor fluid volume status closely Patient also has a chronic indwelling Pereira catheter (4) Delirium: Code(s): R41.0 - Disorientation, unspecified Status: Acute Assessment and Plan: Resolved (5) Acute UTI: Code(s): N39.0 - Urinary tract infection, site not specified Status: Acute Assessment and Plan: CBC, CMP, UA, reviewed pending urine culture if needed Follow temp curve, cultures, WBC, and VS Imipenem 1g IV q8h patient has a history of ESBL and E.coli--pending cultures--revealed Gram-negative bacilli, pending sensitivity report (6) Chronic anemia: Code(s): D64.9 - Anemia, unspecified Status: Acute Assessment and Plan: Patient has chronic iron deficiency anemia Monitor hemoglobin Continue iron supplement 324 mg p.o. t.i.d. meals (7) Chronic kidney disease, stage 3: Code(s): N18.30 - Chronic kidney disease, stage 3 unspecified Status: Chronic Assessment and Plan: Patient appears at a new baseline for chronic kidney disease, Nephrology has been consulted and suggestive it may advance to CKD stage IIIB possibly due to his hypertension, vascular disease as well as age. (8) Hypomagnesemia: Code(s): E83.42 - Hypomagnesemia Status: Acute Assessment and Plan: Replete serum electrolytes as needed Subjective Date/time seen: 01/17/22 06:42 Patient is alert and oriented x4. Reportedly the patient has a flat affect by his daughter. She states that he was more spunky prior to his previous hospitalizations and immediately after being discharged. However his personality has declined. Discussed possible depression after prolonged hospitalization intubation and news of multiple comorbidities, physical debility and possible treatments in the future. Patient is currently being treated for a possible urinary tract infection. 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 Discussed possible central nervous system brain or spinal cord disturbances. Patient was recently intubated him was hypoxic which may contribute to myoclonus. Patient is also experiencing chronic renal failure and is being followed by Nephrology. Also had in-depth discussion with the family at bedside about code status. Discussed chest compressions, intubation, cardiac medications and defibrillation. Patient previously changed his code status 2 days ago to a DNR, however reportedly by the nursing staff and case management the patient family had further questioning. After the end discussion of approximately 45 minutes the patient and family decided be full code. Discussed that this can be changed if they want to change the code status at a later date. Review of Systems Review of Systems: All systems reviewed & are unremarkable except as noted in HPI and below Exam Narrative: General: No acute distress. Morbidly obese pleasant male, myoclonus Mental Status: Awake, alert and oriented to person, place, and time with clear speech. Skin: Skin in warm, dry and intact without rashes or lesions. wound to the
[2022-01-17 06:43] LABS: Basophils Percent Auto 0.4 % (0.2-1.2); Eosinophils Absolute Auto 0.5 K/mm3 (0-0.3); Hematocrit 23.7 % (42.0-52.0); Hemoglobin 7.6 g/dL (14.0-18.0); Immature Granulocyte Absolute 0.05 K/mm3 (0.00-0.031); Immature Granulocyte Percent A 0.5 % (0-0.5); Lymphocytes Absolute Auto 1.45 K/mm3 (0.9-3.2); Lymphocytes Percent Auto 15.7 % (18.3-44.2); Mean Corpuscular HGB Conc 32.1 g/dl (32-36); Mean Corpuscular Hemoglobin 27.6 pg (26-34); Mean Corpuscular Volume 86.2 fl (80-100); Mean Platelet Volume 9.9 fl (7.4-10.4); Monocytes Absolute Auto 0.7 K/mm3 (0.1-0.6); Monocytes Percent Auto 7.6 % (2.6-8.5); Neutrophils Absolute Auto 6.5 K/mm3 (1.3-6.7); Neutrophils Percent Auto 70.8 % (45.5-73.1); Platelet Count Result 218 k/mm3 (150-375); Red Blood Count 2.75 M/mm3 (4.6-6.20); White Blood Count 9.2 K/mm3 (4.5-10.0)
[2022-01-17 06:57] LABS: Lactic Acid Reflex 0.7 mmol/L (0.7-2.0)
[2022-01-17 07:36] LABS: Alanine Aminotransferase 20 U/L (6-50); Albumin Level 3.5 g/dL (3.5-5.1); Alkaline Phosphatase 173 U/L (38-126); Anion Gap 7 mmol/L (8-16); Aspartate Amino Transferase 18 U/L (17-59); Bilirubin,Total 0.7 mg/dL (0.2-1.3); Blood Urea Nitrogen 45 mg/dL (9-20); Calcium 7.9 mg/dL (8.4-10.2); Carbon Dioxide 25 mmol/L (22-30); Chloride 108 mmol/L (98-107); Estimated CRCL calculation 40 ml/min; Estimated Glomerular Filt Rate 28; Glucose 96 mg/dL (65-110); Magnesium 1.4 mg/dL (1.6-2.3); Potassium 3.8 mmol/L (3.4-5.0); Sodium 140 mmol/L (137-145)
[2022-01-17 07:51] LABS: Glucose Point of Care 93 mg/dl (65-105)
[2022-01-17] MEDS: UMECLIDINIUM/VILANTEROL 62.5-25 MCG ELLIPTA 1 PUFF INHALATION (08:37)
[2022-01-17 08:57] LABS: Iron 44 ug/dL (49-181)
[2022-01-17 09:07] LABS: Percent Iron Saturation 20 % (20-50)
[2022-01-17] MEDS: FERROUS SULFATE 324 MG TABLET PO ×3 (09:11→16:49)
[2022-01-17] MEDS: SIMETHICONE 80 MG TAB.CHEW PO ×4 (09:12→20:42)
[2022-01-17] MEDS: ATORVASTATIN 10 MG TABLET PO (09:13)
[2022-01-17] MEDS: FLUCONAZOLE 150 MG TABLET BY MOUTH (09:13)
[2022-01-17] MEDS: BACLOFEN 10 MG TABLET PO ×2 (09:15→20:42)
[2022-01-17] MEDS: PANTOPRAZOLE 40 MG TABLET PO (09:15)
[2022-01-17] MEDS: DOCUSATE SODIUM 100 MG CAPSULE PO ×2 (09:15→20:41)
[2022-01-17] MEDS: PREGABALIN (*CRX) 75 MG CAPSULE PO ×3 (09:15→16:49)
[2022-01-17] MEDS: APIXABAN 2.5 MG TABLET PO ×2 (09:15→20:42)
[2022-01-17] MEDS: GABAPENTIN 400 MG CAPSULE PO ×3 (09:15→16:49)
[2022-01-17] MEDS: SILVERGEL (ELTA) 45 ML 1 APPLIC TOPICAL (09:17)
[2022-01-17] MEDS: EUCERIN CREAM 120 GM JAR 1 APPLIC TOPICAL (09:17)
[2022-01-17] MEDS: FLUTICASONE PROPIONATE 0.05% NA SPR 16 GM BTL (*BKC) 1 SPRAY NASAL (11:46)
[2022-01-17] MEDS: MAGNESIUM OXIDE 400 MG TABLET PO (12:04)
--- NOTE | 2022-01-17 12:16 | PM.PNNEP ---
Progress Note: A&P Assessment and Plan (1) OLIVER (acute kidney injury): Code(s): N17.9 - Acute kidney failure, unspecified Status: Acute Assessment and Plan: on recent hospital discharge, creatinine was running 2.1 - 2.3mg/dl suspicion was that might be his new baseline however, suspected UTI may be playing a role follow trend of repeat labs and UOP watch fluid status closely (2) Chronic kidney disease, stage 3: Code(s): N18.30 - Chronic kidney disease, stage 3 unspecified Status: Chronic Assessment and Plan: creatinine had been running ~ 1.4 - 1.7mg/dl (prior to recent hospitalization) this would cause him to fluctuate from CKD stage 3a - stage 3b probably from his HTN, vascular disease, and age (3) Acute UTI: Code(s): N39.0 - Urinary tract infection, site not specified Status: Acute Assessment and Plan: culture with Pseudomonas on IV antibiotics (4) Altered mental status: Code(s): R41.82 - Altered mental status, unspecified Status: Acute Assessment and Plan: clinical improvement notedd possibly secondary to acute infection (#3) follow mentation Will continue to follow. Subjective Date/time seen: 01/17/22 12:16 Appears to be doing better particularly with regard to his mental status; seems back to baseline; no other issues/events to report at this time; tolerating antibiotic therapy; no events overnight or earlier this morning. Exam Narrative: General: WD/WN male in NAD Heart: normal S1 and S2; no rub Lungs: clear to auscultation Abdomen: soft, nontender, nondistended, positive bowel sounds; RLQ colostomy Extremities: no cyanosis or clubbing; no edema Skin: warm and dry Objective Data Vital Signs Vital Signs: Vital Signs Temp Pulse Resp BP Pulse Ox O2 Del Method 01/17/22 09:20 Room Air 01/17/22 08:38 72 97 Room Air 01/17/22 06:00 37.1 C 78 18 137/55 L 97 01/16/22 20:00 Room Air 01/16/22 21:43 36.9 C 84 20 130/97 H 95 01/16/22 21:11 82 18 01/16/22 21:11 79 94 Room Air 01/16/22 21:05 79 18 Intake/Output Intake/Output: Intake & Output 01/14/22 01/15/22 01/16/22 01/17/22 23:59 23:59 23:59 23:59 Intake Total 1000 1360 1030 Output Total 1725 250 Balance 1000 -365 780 Meds/Results Medications: Active Medications Generic Name Dose Route Start Last Admin Trade Name Freq PRN Reason Stop Dose Admin Acetaminophen 650 mg 01/16/22 08:11 Acetaminophen 325 Mg Tablet PO Q6H PRN Mild Pain (1-3) or Fever Albuterol 2.5 mg 01/16/22 08:16 Albuterol Sulfate Neb 2.5 Mg/3 Ml Inh INHALATION Q6HRT PRN Shortness Of Breath Apixaban 2.5 mg 01/16/22 09:00 01/17/22 09:15 Apixaban 2.5 Mg Tablet PO 2.5 mg Q12HR VAIBHAV Administration Atorvastatin Calcium 10 mg 01/16/22 09:00 01/17/22 09:13 Atorvastatin 10 Mg Tablet PO 10 mg DAILY VAIBHAV Administration Baclofen 10 mg 01/16/22 09:00 01/17/22 09:15 Baclofen 10 Mg Tablet PO 10 mg Q12HR VAIBHAV Administration Budesonide 0.5 mg 01/16/22 08:00 01/17/22 08:37 Budesonide Respule Neb 0.5 Mg/2 Ml Amp INHALATION Not Given Q12HRT VAIBHAV Diltiazem HCl 30 mg 01/16/22 08:20 01/17/22 13:58 Diltiazem Hcl 30 Mg Tablet PO 30 mg Q8HR VAIBHAV Administration Docusate Sodium 100 mg 01/16/22 09:00 01/17/22 09:15 Docusate Sodium 100 Mg Capsule PO 100 mg Q12HR VAIBHAV Administration Ferrous Sulfate 324 mg 01/16/22 08:40 01/17/22 16:49 Ferrous Sulfate 324 Mg Tablet PO 324 mg TIDWM VAIBHAV Administration Fluticasone Propionate 1 spray 01/16/22 09:00 01/17/22 11:46 Fluticasone Propionate 0.05% Na Spr 16 Gm Btl (*Bkc) NASAL 1 spray DAILY VAIBHAV Administration Gabapentin 400 mg 01/16/22 09:00 01/17/22 16:49 Gabapentin 400 Mg Capsule PO 400 mg TID VAIBHAV Administration Guaifenesin/Dextromethorphan 10 ml 01/16/22 08:16 Gu
[2022-01-17] MEDS: IPRATROPIUM BR 0.02% INH SOLN 0.5 MG/2.5 ML VIAL INHALATION ×2 (13:39→20:31)
[2022-01-17 15:54] LABS: Glucose Point of Care 109 mg/dl (65-105)
[2022-01-17] MEDS: BUDESONIDE RESPULE NEB 0.5 MG/2 ML AMP INHALATION (20:32)
[2022-01-17] MEDS: MELATONIN 5 MG TABLET PO (20:42)
[2022-01-17 21:56] LABS: IFOB Positive Control Positive; Immunochemical Fecal Occult Bl Negative (N)
[2022-01-18] VITALS (9 sets, daily range): BP systolic 111–134; BP diastolic 40–51; PULSE 59–74; RESP 14–18; TEMP 36.1–36.5; O2SAT 92–97
--- NOTE | 2022-01-18 02:06 | PCRCNOTE ---
0200 UPD on 01/18 not given. Pt on apnea link testing and not to be disturbed. Next available administration is at 0800.
[2022-01-18] MEDS: dilTIAZem HCL 30 MG TABLET PO ×3 (06:09→20:38)
[2022-01-18] MEDS: LEVOTHYROXINE SODIUM 25 MCG TABLET PO (06:09)
[2022-01-18 06:21] LABS: Basophils Percent Auto 0.2 % (0.2-1.2); Eosinophils Absolute Auto 0.6 K/mm3 (0-0.3); Eosinophils Percent Auto 7.1 % (0-4.4); Hematocrit 22.4 % (42.0-52.0); Hemoglobin 7.1 g/dL (14.0-18.0); Immature Granulocyte Absolute 0.03 K/mm3 (0.00-0.031); Immature Granulocyte Percent A 0.4 % (0-0.5); Lymphocytes Absolute Auto 1.24 K/mm3 (0.9-3.2); Mean Corpuscular HGB Conc 31.7 g/dl (32-36); Mean Corpuscular Hemoglobin 27.3 pg (26-34); Mean Corpuscular Volume 86.2 fl (80-100); Mean Platelet Volume 9.7 fl (7.4-10.4); Monocytes Absolute Auto 0.6 K/mm3 (0.1-0.6); Monocytes Percent Auto 7.6 % (2.6-8.5); Neutrophils Absolute Auto 5.8 K/mm3 (1.3-6.7); Neutrophils Percent Auto 69.7 % (45.5-73.1); Platelet Count Result 182 k/mm3 (150-375); Red Cell Distribution Width 16.2 % (11.5-14.5); White Blood Count 8.3 K/mm3 (4.5-10.0)
[2022-01-18 06:26] LABS: Alanine Aminotransferase 16 U/L (6-50); Albumin Level 3.2 g/dL (3.5-5.1); Alkaline Phosphatase 156 U/L (38-126); Anion Gap 7 mmol/L (8-16); Aspartate Amino Transferase 14 U/L (17-59); Bilirubin,Total 0.6 mg/dL (0.2-1.3); Blood Urea Nitrogen 46 mg/dL (9-20); Calcium 7.7 mg/dL (8.4-10.2); Carbon Dioxide 24 mmol/L (22-30); Chloride 108 mmol/L (98-107); Estimated CRCL calculation 38 ml/min; Estimated Glomerular Filt Rate 27; Glucose 98 mg/dL (65-110); Potassium 4.2 mmol/L (3.4-5.0); Sodium 139 mmol/L (137-145)
--- NOTE | 2022-01-18 07:10 | PM.IMPN ---
Progress Note: A&P Assessment and Plan (1) Sacral wound: Code(s): S31.000A - Unspecified open wound of lower back and pelvis without penetration into retroperitoneum, initial encounter Status: Acute Assessment and Plan: Sacral wound, unable to evaluate Consulted wound care and wound cultures were obtained. (2) Altered mental status: Code(s): R41.82 - Altered mental status, unspecified Status: Acute Assessment and Plan: Resolved (3) OLIVER (acute kidney injury): Code(s): N17.9 - Acute kidney failure, unspecified Status: Acute Assessment and Plan: Recent hospital discharge the patient's creatinine was running between 2.1-2.3 Suspect this is the patient's new baseline 2/2 CKD stage IIIB Suspected urinary tract infection may play a role Continue to monitor lab values Monitor fluid volume status closely Patient also has a chronic indwelling Pereira catheter (4) Delirium: Code(s): R41.0 - Disorientation, unspecified Status: Acute Assessment and Plan: Resolved (5) Acute UTI: Code(s): N39.0 - Urinary tract infection, site not specified Status: Acute Assessment and Plan: CBC, CMP, UA, reviewed pending urine culture if needed Follow temp curve, cultures, WBC, and VS Imipenem 1g IV q8h patient has a history of ESBL and E.coli--pending cultures--revealed Gram-negative bacilli, pending sensitivity report (6) Chronic anemia: Code(s): D64.9 - Anemia, unspecified Status: Acute Assessment and Plan: Patient has chronic iron deficiency anemia Monitor hemoglobin Continue iron supplement 324 mg p.o. t.i.d. meals Patient has been on iron supplementation , however his hemoglobin continues to trend down. Occult stool negative. Hemoglobin 7.1 this morning. Patient does have CKD, although consulted Hematology for further recommendations. Patient reports he has received iron infusions in the past. (7) Chronic kidney disease, stage 3: Code(s): N18.30 - Chronic kidney disease, stage 3 unspecified Status: Chronic Assessment and Plan: Patient appears at a new baseline for chronic kidney disease, Nephrology has been consulted and suggestive it may advance to CKD stage IIIB possibly due to his hypertension, vascular disease as well as age. (8) Hypomagnesemia: Code(s): E83.42 - Hypomagnesemia Status: Acute Assessment and Plan: Replete serum electrolytes as needed Subjective Date/time seen: 01/18/22 07:10 patient is alert and oriented x4. He has a pleasant affect. No family members at bedside. patient reported he is doing well and feeling significantly better. Although his hemoglobin has slowly decreased during his hospitalization. Patient does have CKD, he has received iron infusions in the past. He does not currently follow with a church official. Consulted Hematology during the patient's hospitalization is as hemoglobin is 7.1 this morning with no overt signs of bleeding. Occult stool was negative. Patient does not have any emesis. He denies any nausea, vomiting upset stomach or diarrhea. Renal function appears stable. Review of Systems Review of Systems: All systems reviewed & are unremarkable except as noted in HPI and below Exam Narrative: General: No acute distress. Morbidly obese pleasant male, myoclonus Mental Status: Awake, alert and oriented to person, place, and time with clear speech. Skin: Skin in warm, dry and intact without rashes or lesions. wound to the right lower extremity lateral aspect. reported a sacral wound, unable to evaluate Head: Normocephalic and atraumatic. Eyes: Conjunctivae are clear without exudates or hemorrhage. Sclera is non-icteric. EOM are intact, PERRLA. Ears: The external ear and canal are non-tender and without swelling or discharge. Nose: Nasal mucosa is pink and moist. Septum midline. Nares patent bilaterally. Throat: Oral mucosa pink and mois
[2022-01-18] MEDS: IPRATROPIUM BR 0.02% INH SOLN 0.5 MG/2.5 ML VIAL INHALATION ×3 (08:37→20:22)
[2022-01-18] MEDS: BUDESONIDE RESPULE NEB 0.5 MG/2 ML AMP INHALATION ×2 (08:37→20:23)
[2022-01-18] MEDS: UMECLIDINIUM/VILANTEROL 62.5-25 MCG ELLIPTA 1 PUFF INHALATION (08:40)
[2022-01-18] MEDS: FERROUS SULFATE 324 MG TABLET PO ×2 (09:27→16:11)
[2022-01-18] MEDS: APIXABAN 2.5 MG TABLET PO ×2 (09:27→20:37)
[2022-01-18] MEDS: BACLOFEN 10 MG TABLET PO ×2 (09:28→20:37)
[2022-01-18] MEDS: ATORVASTATIN 10 MG TABLET PO (09:28)
[2022-01-18] MEDS: DOCUSATE SODIUM 100 MG CAPSULE PO ×2 (09:28→20:37)
[2022-01-18] MEDS: FLUTICASONE PROPIONATE 0.05% NA SPR 16 GM BTL (*BKC) 1 SPRAY NASAL (09:29)
[2022-01-18] MEDS: GABAPENTIN 400 MG CAPSULE PO ×2 (09:29→16:11)
[2022-01-18] MEDS: PANTOPRAZOLE 40 MG TABLET PO (09:30)
[2022-01-18] MEDS: SIMETHICONE 80 MG TAB.CHEW PO ×3 (09:32→20:37)
[2022-01-18] MEDS: PREGABALIN (*CRX) 75 MG CAPSULE PO ×2 (09:38→16:12)
[2022-01-18] MEDS: EUCERIN CREAM 120 GM JAR 1 APPLIC TOPICAL (10:11)
[2022-01-18] MEDS: SILVERGEL (ELTA) 45 ML 1 APPLIC TOPICAL (10:11)
[2022-01-18] MEDS: MAGNESIUM OXIDE 400 MG TABLET PO (11:16)
--- NOTE | 2022-01-18 11:35 | P.PNNP_ITS ---
Progress Note: A&P Assessment and Plan (1) OLIVER (acute kidney injury): Code(s): N17.9 - Acute kidney failure, unspecified Status: Acute Assessment and Plan: * on recent hospital discharge, creatinine was running 2.1 - 2.3mg/dl * suspicion was that might be his new baseline * however, suspected UTI may be playing a role * follow trend of repeat labs and UOP * watch fluid status closely (2) Chronic kidney disease, stage 3: Code(s): N18.30 - Chronic kidney disease, stage 3 unspecified Status: Chronic Assessment and Plan: * creatinine had been running ~ 1.4 - 1.7mg/dl (prior to recent hospitalization) * this would cause him to fluctuate from CKD stage 3a - stage 3b * probably from his HTN, vascular disease, and age (3) Acute UTI: Code(s): N39.0 - Urinary tract infection, site not specified Status: Acute Assessment and Plan: * culture with Pseudomonas * on IV antibiotics (4) Chronic anemia: Code(s): D64.9 - Anemia, unspecified Status: Chronic Assessment and Plan: * partly related to underlying CKD * on oral iron * empirically dose with Epogen * will likely need outpatient Hematology follow-up (5) Altered mental status: Code(s): R41.82 - Altered mental status, unspecified Status: Acute Assessment and Plan: * clinical improvement noted * possibly secondary to acute infection (#3) * follow mentation Will continue to follow. Subjective Date/time seen: 01/18/22 11:35 No apparent distress voiced at the time of my visit; appears in good spirits currently; no acute complaints/problems to report; no issues/events overnight or earlier this morning. Exam Narrative: General: WD/WN male in NAD Heart: normal S1 and S2; no rub Lungs: clear to auscultation Abdomen: soft, nontender, nondistended, positive bowel sounds; RLQ colostomy Extremities: no cyanosis or clubbing; no edema Skin: warm and intact Objective Data Vital Signs Vital Signs: Vital Signs Temp Pulse Resp BP Pulse Ox O2 Del Method 01/18/22 09:52 Room Air 01/18/22 08:52 70 16 01/18/22 08:52 92 01/18/22 08:45 64 16 01/18/22 08:45 92 Room Air 01/18/22 05:29 36.1 C L 65 18 117/46 L 96 01/17/22 21:09 36.4 C 65 20 104/50 L 95 01/17/22 20:45 74 16 01/17/22 20:33 72 16 01/17/22 15:15 Room Air Intake/Output Intake/Output: Intake & Output 01/15/22 01/16/22 01/17/22 01/18/22 23:59 23:59 23:59 23:59 Intake Total 1000 1360 2020 490 Output Total 1725 1050 850 Balance 1000 -365 970 -360 Meds/Results Medications: Active Medications Generic Name Dose Route Start Last Admin Trade Name Freq PRN Reason Stop Dose Admin Acetaminophen 650 mg 01/16/22 08:11 Acetaminophen 325 Mg Tablet PO Q6H PRN Mild Pain (1-3) or Fever Albuterol 2.5 mg 01/16/22 08:16 Albuterol Sulfate Neb 2.5 Mg/3 Ml Inh INHALATION Q6HRT PRN Shortness Of Breath Apixaban 2.5 mg 01/16/22 09:00 01/18/22 09:27 Apixaban 2.5 Mg Tablet PO 2.5 mg Q12HR VAIBHAV Administrat
--- NOTE | 2022-01-18 11:35 | PM.PNNEP ---
Progress Note: A&P Assessment and Plan (1) OLIVER (acute kidney injury): Code(s): N17.9 - Acute kidney failure, unspecified Status: Acute Assessment and Plan: on recent hospital discharge, creatinine was running 2.1 - 2.3mg/dl suspicion was that might be his new baseline however, suspected UTI may be playing a role follow trend of repeat labs and UOP watch fluid status closely (2) Chronic kidney disease, stage 3: Code(s): N18.30 - Chronic kidney disease, stage 3 unspecified Status: Chronic Assessment and Plan: creatinine had been running ~ 1.4 - 1.7mg/dl (prior to recent hospitalization) this would cause him to fluctuate from CKD stage 3a - stage 3b probably from his HTN, vascular disease, and age (3) Acute UTI: Code(s): N39.0 - Urinary tract infection, site not specified Status: Acute Assessment and Plan: culture with Pseudomonas on IV antibiotics (4) Chronic anemia: Code(s): D64.9 - Anemia, unspecified Status: Chronic Assessment and Plan: partly related to underlying CKD on oral iron empirically dose with Epogen will likely need outpatient Hematology follow-up (5) Altered mental status: Code(s): R41.82 - Altered mental status, unspecified Status: Acute Assessment and Plan: clinical improvement noted possibly secondary to acute infection (#3) follow mentation Will continue to follow. Subjective Date/time seen: 01/18/22 11:35 No apparent distress voiced at the time of my visit; appears in good spirits currently; no acute complaints/problems to report; no issues/events overnight or earlier this morning. Exam Narrative: General: WD/WN male in NAD Heart: normal S1 and S2; no rub Lungs: clear to auscultation Abdomen: soft, nontender, nondistended, positive bowel sounds; RLQ colostomy Extremities: no cyanosis or clubbing; no edema Skin: warm and intact Objective Data Vital Signs Vital Signs: Vital Signs Temp Pulse Resp BP Pulse Ox O2 Del Method 01/18/22 09:52 Room Air 01/18/22 08:52 70 16 01/18/22 08:52 92 01/18/22 08:45 64 16 01/18/22 08:45 92 Room Air 01/18/22 05:29 36.1 C L 65 18 117/46 L 96 01/17/22 21:09 36.4 C 65 20 104/50 L 95 01/17/22 20:45 74 16 01/17/22 20:33 72 16 01/17/22 15:15 Room Air Intake/Output Intake/Output: Intake & Output 01/15/22 01/16/22 01/17/22 01/18/22 23:59 23:59 23:59 23:59 Intake Total 1000 1360 2020 490 Output Total 1725 1050 850 Balance 1000 -365 970 -360 Meds/Results Medications: Active Medications Generic Name Dose Route Start Last Admin Trade Name Freq PRN Reason Stop Dose Admin Acetaminophen 650 mg 01/16/22 08:11 Acetaminophen 325 Mg Tablet PO Q6H PRN Mild Pain (1-3) or Fever Albuterol 2.5 mg 01/16/22 08:16 Albuterol Sulfate Neb 2.5 Mg/3 Ml Inh INHALATION Q6HRT PRN Shortness Of Breath Apixaban 2.5 mg 01/16/22 09:00 01/18/22 09:27 Apixaban 2.5 Mg Tablet PO 2.5 mg Q12HR VAIBHAV Administration Atorvastatin Calcium 10 mg 01/16/22 09:00 01/18/22 09:28 Atorvastatin 10 Mg Tablet PO 10 mg DAILY VAIBHAV Administration Baclofen 10 mg 01/16/22 09:00 01/18/22 09:28 Baclofen 10 Mg Tablet PO 10 mg Q12HR VAIBHAV Administration Budesonide 0.5 mg 01/16/22 08:00 01/18/22 08:37 Budesonide Respule Neb 0.5 Mg/2 Ml Amp INHALATION 0.5 mg Q12HRT VAIBHAV Administration Diltiazem HCl 30 mg 01/16/22 08:20 01/18/22 06:09 Diltiazem Hcl 30 Mg Tablet PO 30 mg Q8HR VAIBHAV Administration Docusate Sodium 100 mg 01/16/22 09:00 01/18/22 09:28 Docusate Sodium 100 Mg Capsule PO 100 mg Q12HR VAIBHAV Administration Ferrous Sulfate 324 mg 01/16/22 08:40 01/18/22 09:27 Ferrous Sulfate 324 Mg Tablet PO 324 mg TIDWM VAIBHAV Administration Fluticasone Propionate 1 spray 01/16/22 09:00 01/18/22 09:29
[2022-01-18] MEDS: ALBUTEROL SULFATE NEB 2.5 MG/3 ML INH INHALATION (15:35)
[2022-01-18] MEDS: MELATONIN 5 MG TABLET PO (20:37)
[2022-01-19] VITALS (9 sets, daily range): BP systolic 125–158; BP diastolic 52–71; PULSE 74–80; RESP 14–20; TEMP 36.3–36.8; O2SAT 94–96
[2022-01-19] MEDS: dilTIAZem HCL 30 MG TABLET PO ×3 (05:44→22:01)
[2022-01-19] MEDS: LEVOTHYROXINE SODIUM 25 MCG TABLET PO (05:44)
[2022-01-19 06:27] LABS: Basophils Percent Auto 0.4 % (0.2-1.2); Eosinophils Absolute Auto 0.7 K/mm3 (0-0.3); Eosinophils Percent Auto 7.4 % (0-4.4); Hematocrit 23.8 % (42.0-52.0); Hemoglobin 7.7 g/dL (14.0-18.0); Immature Granulocyte Absolute 0.03 K/mm3 (0.00-0.031); Immature Granulocyte Percent A 0.3 % (0-0.5); Lymphocytes Absolute Auto 1.27 K/mm3 (0.9-3.2); Lymphocytes Percent Auto 13.5 % (18.3-44.2); Mean Corpuscular HGB Conc 32.4 g/dl (32-36); Mean Corpuscular Hemoglobin 27.7 pg (26-34); Mean Corpuscular Volume 85.6 fl (80-100); Mean Platelet Volume 9.6 fl (7.4-10.4); Monocytes Absolute Auto 0.6 K/mm3 (0.1-0.6); Neutrophils Absolute Auto 6.8 K/mm3 (1.3-6.7); Neutrophils Percent Auto 72.4 % (45.5-73.1); Platelet Count Result 183 k/mm3 (150-375); Red Blood Count 2.78 M/mm3 (4.6-6.20); White Blood Count 9.4 K/mm3 (4.5-10.0)
[2022-01-19 06:46] LABS: Alanine Aminotransferase 16 U/L (6-50); Albumin Level 3.5 g/dL (3.5-5.1); Alkaline Phosphatase 170 U/L (38-126); Anion Gap 7 mmol/L (8-16); Aspartate Amino Transferase 15 U/L (17-59); Bilirubin,Total 0.6 mg/dL (0.2-1.3); Blood Urea Nitrogen 41 mg/dL (9-20); Calcium 7.9 mg/dL (8.4-10.2); Carbon Dioxide 24 mmol/L (22-30); Chloride 109 mmol/L (98-107); Estimated CRCL calculation 41 ml/min; Estimated Glomerular Filt Rate 30; Glucose 103 mg/dL (65-110); Potassium 4.3 mmol/L (3.4-5.0); Sodium 140 mmol/L (137-145)
--- NOTE | 2022-01-19 06:56 | PM.DS ---
DS: Discharge Diagnosis Discharge Diagnosis (1) Sacral wound: Code(s): S31.000A - Unspecified open wound of lower back and pelvis without penetration into retroperitoneum, initial encounter Status: Acute Assessment and Plan: Sacral wound, unable to evaluate Consulted wound care and wound cultures were obtained. (2) Altered mental status: Code(s): R41.82 - Altered mental status, unspecified Status: Acute Assessment and Plan: Resolved (3) OLIVER (acute kidney injury): Code(s): N17.9 - Acute kidney failure, unspecified Status: Acute Assessment and Plan: Recent hospital discharge the patient's creatinine was running between 2.1-2.3 Suspect this is the patient's new baseline 2/2 CKD stage IIIB Suspected urinary tract infection may play a role Continue to monitor lab values Monitor fluid volume status closely Patient also has a chronic indwelling Pereira catheter (4) Delirium: Code(s): R41.0 - Disorientation, unspecified Status: Acute Assessment and Plan: Resolved (5) Acute UTI: Code(s): N39.0 - Urinary tract infection, site not specified Status: Acute Assessment and Plan: CBC, CMP, UA, reviewed pending urine culture if needed Follow temp curve, cultures, WBC, and VS Imipenem 1g IV q8h patient has a history of ESBL and E.coli--pending cultures--revealed Gram-negative bacilli, pending sensitivity report (6) Chronic anemia: Code(s): D64.9 - Anemia, unspecified Status: Chronic Assessment and Plan: Patient has chronic iron deficiency anemia Monitor hemoglobin Continue iron supplement 324 mg p.o. t.i.d. meals Patient has been on iron supplementation , however his hemoglobin continues to trend down. Occult stool negative. Hemoglobin 7.1 this morning. Patient does have CKD, although consulted Hematology for further recommendations. Patient reports he has received iron infusions in the past. (7) Chronic kidney disease, stage 3: Code(s): N18.30 - Chronic kidney disease, stage 3 unspecified Status: Chronic Assessment and Plan: Patient appears at a new baseline for chronic kidney disease, Nephrology has been consulted and suggestive it may advance to CKD stage IIIB possibly due to his hypertension, vascular disease as well as age. (8) Hypomagnesemia: Code(s): E83.42 - Hypomagnesemia Status: Acute Assessment and Plan: Replete serum electrolytes as needed DS: Summary Time Spent with Patient Time attestation: Total time spent providing and/or coordinating discharge services: Exam Narrative: General: No acute distress. Morbidly obese pleasant male, myoclonus Mental Status: Awake, alert and oriented to person, place, and time with clear speech. Skin: Skin in warm, dry and intact without rashes or lesions. wound to the right lower extremity lateral aspect. reported a sacral wound, unable to evaluate Head: Normocephalic and atraumatic. Eyes: Conjunctivae are clear without exudates or hemorrhage. Sclera is non-icteric. EOM are intact, PERRLA. Ears: The external ear and canal are non-tender and without swelling or discharge. Nose: Nasal mucosa is pink and moist. Septum midline. Nares patent bilaterally. Throat: Oral mucosa pink and moist with good dentition. Tongue midline. Neck: The neck supple without adenopathy. Trachea midline. No JVD. Cardiac: S1 and S2 regular rate and rhythm. No murmurs, gallops, or rubs auscultated. Respiratory: Chest wall symmetric, nontender and without deformity or trauma. Respirations even and unlabored. Lung sounds are clear to auscultation in all lobes bilaterally without wheezes, rhonchi, or rales. Abdominal: Abdomen soft, round and non-tender to palpation. Bowel sounds present and normoactive in all 4 quadrants. Spine: Neck and back with grossly normal curvature, no deformity in appearance or signs of trauma. ostomy to the right lower quadrant with green
[2022-01-19] MEDS: GABAPENTIN 400 MG CAPSULE PO ×3 (08:16→17:09)
[2022-01-19] MEDS: PANTOPRAZOLE 40 MG TABLET PO (08:16)
[2022-01-19] MEDS: SIMETHICONE 80 MG TAB.CHEW PO ×4 (08:17→22:01)
[2022-01-19] MEDS: SILVERGEL (ELTA) 45 ML 1 APPLIC TOPICAL (08:17)
[2022-01-19] MEDS: BACLOFEN 10 MG TABLET PO ×2 (08:17→22:02)
[2022-01-19] MEDS: FERROUS SULFATE 324 MG TABLET PO ×3 (08:17→17:10)
[2022-01-19] MEDS: FLUTICASONE PROPIONATE 0.05% NA SPR 16 GM BTL (*BKC) 1 SPRAY NASAL (08:17)
[2022-01-19] MEDS: APIXABAN 2.5 MG TABLET PO ×2 (08:17→22:02)
[2022-01-19] MEDS: ATORVASTATIN 10 MG TABLET PO (08:17)
[2022-01-19] MEDS: EUCERIN CREAM 120 GM JAR 1 APPLIC TOPICAL (08:17)
[2022-01-19] MEDS: PREGABALIN (*CRX) 75 MG CAPSULE PO ×3 (08:19→17:11)
[2022-01-19] MEDS: DOCUSATE SODIUM 100 MG CAPSULE PO ×2 (08:56→22:02)
--- NOTE | 2022-01-19 10:11 | PM.IMPN ---
Progress Note: A&P Assessment and Plan (1) Sacral wound: Code(s): S31.000A - Unspecified open wound of lower back and pelvis without penetration into retroperitoneum, initial encounter Status: Acute Assessment and Plan: Sacral wound, unable to evaluate Consulted wound care and wound cultures were obtained. wound culture revealed Gram-negative bacilli-- no leukocytosis, no signs of infection at the site. (2) Altered mental status: Code(s): R41.82 - Altered mental status, unspecified Status: Acute Assessment and Plan: Resolved (3) OLIVER (acute kidney injury): Code(s): N17.9 - Acute kidney failure, unspecified Status: Acute Assessment and Plan: Recent hospital discharge the patient's creatinine was running between 2.1-2.3 Suspect this is the patient's new baseline 2/2 CKD stage IIIB Suspected urinary tract infection may play a role Continue to monitor lab values Monitor fluid volume status closely Patient also has a chronic indwelling Pereira catheter (4) Delirium: Code(s): R41.0 - Disorientation, unspecified Status: Acute Assessment and Plan: Resolved (5) Acute UTI: Code(s): N39.0 - Urinary tract infection, site not specified Status: Acute Assessment and Plan: CBC, CMP, UA, reviewed Urine culture revealed Pseudomonas growth. Started on ciprofloxacin Follow temp curve, cultures, WBC, and VS Imipenem 1g IV q8h , IV antibiotics discontinued no active signs of infection. Patient did not have a leukocytosis, he has been afebrile for greater than 48 hours, vital signs otherwise stable. patient has a history of ESBL and E.coli--pending cultures--revealed Gram-negative bacilli, pending sensitivity report (6) Chronic anemia: Code(s): D64.9 - Anemia, unspecified Status: Chronic Assessment and Plan: Patient has chronic iron deficiency anemia Monitor hemoglobin Continue iron supplement 324 mg p.o. t.i.d. meals Patient has been on iron supplementation , however his hemoglobin continues to trend down. Occult stool negative. Hemoglobin 7.1 this morning. Patient does have CKD, although consulted Hematology for further recommendations. Patient reports he has received iron infusions in the past. received x1 dose of Epogen by Nephrology on 01/19/2022 (7) Chronic kidney disease, stage 3: Code(s): N18.30 - Chronic kidney disease, stage 3 unspecified Status: Chronic Assessment and Plan: Patient appears at a new baseline for chronic kidney disease, Nephrology has been consulted and suggestive it may advance to CKD stage IIIB possibly due to his hypertension, vascular disease as well as age. (8) Hypomagnesemia: Code(s): E83.42 - Hypomagnesemia Status: Acute Assessment and Plan: Replete serum electrolytes as needed Subjective Date/time seen: 01/19/22 10:11 patient is doing well this morning. No acute complaints overnight. Hemoglobin improved however patient will receive Epogen injection by Nephrology. Hematology consulted to evaluate the patient for further workup and follow-up As an outpatient. Patient remains on iron supplements. Review of Systems Review of Systems: All systems reviewed & are unremarkable except as noted in HPI and below Exam Narrative: General: No acute distress. Morbidly obese pleasant male, myoclonus Mental Status: Awake, alert and oriented to person, place, and time with clear speech. Skin: Skin in warm, dry and intact without rashes or lesions. wound to the right lower extremity lateral aspect. reported a sacral wound, unable to evaluate-- Stable Head: Normocephalic and atraumatic. Eyes: Conjunctivae are clear without exudates or hemorrhage. Sclera is non-icteric. EOM are intact, PERRLA. Ears: The external ear and canal are non-tender and without swelling or discharge. Nose: Nasal mucosa is pink and moist. Septum midline. Nares patent bilaterally. Throat
--- NOTE | 2022-01-19 10:20 | PC.NURSE ---
spoke with MD Arias, procrit ordered 20,000 unit one time dose, MD Arias to follow up Thursday r/t to , informed to have hospitalist call if an question or concerns, informed Danna pt provider today.
--- NOTE | 2022-01-19 10:31 | PC.NURSE ---
Md López called and updated of MD Arias's order, MD López in agreement with MD Arias's order. [place] continue [place] 1 [place] [address] units [place] procrit today.
[2022-01-19] MEDS: EPOETIN ALFA-EPBX 20,000 UNITS/ML VIAL 20000 UNITS SUB-Q (10:48)
[2022-01-19] MEDS: MAGNESIUM OXIDE 400 MG TABLET PO (10:48)
--- NOTE | 2022-01-19 11:09 | PCRCNOTE ---
Window of time for administration has passed. See next scheduled administration.
--- NOTE | 2022-01-19 12:40 | PM.PNNEP ---
Progress Note: A&P Assessment and Plan (1) OLIVER (acute kidney injury): Code(s): N17.9 - Acute kidney failure, unspecified Status: Acute Assessment and Plan: on recent hospital discharge, creatinine was running 2.1 - 2.3mg/dl suspicion was that might be his new baseline however, suspected UTI may be playing a role follow trend of repeat labs and UOP watch fluid status closely (2) Chronic kidney disease, stage 3: Code(s): N18.30 - Chronic kidney disease, stage 3 unspecified Status: Chronic Assessment and Plan: creatinine had been running ~ 1.4 - 1.7mg/dl (prior to recent hospitalization) this would cause him to fluctuate from CKD stage 3a - stage 3b probably from his HTN, vascular disease, and age (3) Acute UTI: Code(s): N39.0 - Urinary tract infection, site not specified Status: Acute Assessment and Plan: culture with Pseudomonas on IV antibiotics (4) Chronic anemia: Code(s): D64.9 - Anemia, unspecified Status: Chronic Assessment and Plan: partly related to underlying CKD on oral iron empirically dose with Epogen will likely need outpatient Hematology follow-up (5) Altered mental status: Code(s): R41.82 - Altered mental status, unspecified Status: Acute Assessment and Plan: clinical improvement noted possibly secondary to acute infection (#3) follow mentation Will continue to follow. Subjective Date/time seen: 01/19/22 12:40 Appears to be feeling reasonably well at this time; no new issues or concerns voiced; remains in good spirits; no acute issues/events overnight or earlier this morning; no distress noted. Exam Narrative: General: WD/WN male in NAD Heart: normal S1 and S2; no rub Lungs: clear to auscultation Abdomen: soft, nontender, nondistended, positive bowel sounds; RLQ colostomy Extremities: no cyanosis or clubbing; no edema Skin: no rash or nodules Objective Data Vital Signs Vital Signs: Vital Signs Temp Pulse Resp BP Pulse Ox O2 Del Method 01/19/22 12:00 36.3 C L 79 20 125/71 94 01/19/22 08:00 76 20 94 Room Air 01/19/22 05:22 36.5 C 76 20 158/68 H 94 01/18/22 21:39 36.3 C L 74 18 134/51 L 97 01/18/22 20:34 70 14 01/18/22 20:23 72 16 Intake/Output Intake/Output: Intake & Output 01/16/22 01/17/22 01/18/22 01/19/22 23:59 23:59 23:59 23:59 Intake Total 1360 2020 1770 800 Output Total 1725 1050 1825 825 Balance -365 970 -55 -25 Meds/Results Medications: Active Medications Generic Name Dose Route Start Last Admin Trade Name Freq PRN Reason Stop Dose Admin Acetaminophen 650 mg 01/16/22 08:11 Acetaminophen 325 Mg Tablet PO Q6H PRN Mild Pain (1-3) or Fever Albuterol 2.5 mg 01/16/22 08:16 01/18/22 15:35 Albuterol Sulfate Neb 2.5 Mg/3 Ml Inh INHALATION 2.5 mg Q6HRT PRN Administration Shortness Of Breath Apixaban 2.5 mg 01/16/22 09:00 01/19/22 08:17 Apixaban 2.5 Mg Tablet PO 2.5 mg Q12HR VAIBHAV Administration Atorvastatin Calcium 10 mg 01/16/22 09:00 01/19/22 08:17 Atorvastatin 10 Mg Tablet PO 10 mg DAILY VAIBHAV Administration Baclofen 10 mg 01/16/22 09:00 01/19/22 08:17 Baclofen 10 Mg Tablet PO 10 mg Q12HR VAIBHAV Administration Budesonide 0.5 mg 01/16/22 08:00 01/19/22 11:08 Budesonide Respule Neb 0.5 Mg/2 Ml Amp INHALATION Not Given Q12HRT VAIBHAV Ciprofloxacin 250 mg 01/19/22 18:00 01/19/22 17:09 Ciprofloxacin 250 Mg Tablet PO 250 mg Q12H VAIBHAV Administration Diltiazem HCl 30 mg 01/16/22 08:20 01/19/22 15:14 Diltiazem Hcl 30 Mg Tablet PO 30 mg Q8HR VAIBHAV Administration Docusate Sodium 100 mg 01/16/22 09:00 01/19/22 08:56 Docusate Sodium 100 Mg Capsule PO 100 mg Q12HR VAIBHAV Administration Ferrous Sulfate 324 mg 01/16/22 08:40 01/19/22 17:10 Ferrous Sulfate 324 Mg Tablet PO 324 mg TIDWM VAIBHAV Administra
--- NOTE | 2022-01-19 12:40 | P.PNNP_ITS ---
Progress Note: A&P Assessment and Plan (1) OLIVER (acute kidney injury): Code(s): N17.9 - Acute kidney failure, unspecified Status: Acute Assessment and Plan: * on recent hospital discharge, creatinine was running 2.1 - 2.3mg/dl * suspicion was that might be his new baseline * however, suspected UTI may be playing a role * follow trend of repeat labs and UOP * watch fluid status closely (2) Chronic kidney disease, stage 3: Code(s): N18.30 - Chronic kidney disease, stage 3 unspecified Status: Chronic Assessment and Plan: * creatinine had been running ~ 1.4 - 1.7mg/dl (prior to recent hospitalization) * this would cause him to fluctuate from CKD stage 3a - stage 3b * probably from his HTN, vascular disease, and age (3) Acute UTI: Code(s): N39.0 - Urinary tract infection, site not specified Status: Acute Assessment and Plan: * culture with Pseudomonas * on IV antibiotics (4) Chronic anemia: Code(s): D64.9 - Anemia, unspecified Status: Chronic Assessment and Plan: * partly related to underlying CKD * on oral iron * empirically dose with Epogen * will likely need outpatient Hematology follow-up (5) Altered mental status: Code(s): R41.82 - Altered mental status, unspecified Status: Acute Assessment and Plan: * clinical improvement noted * possibly secondary to acute infection (#3) * follow mentation Will continue to follow. Subjective Date/time seen: 01/19/22 12:40 Appears to be feeling reasonably well at this time; no new issues or concerns voiced; remains in good spirits; no acute issues/events overnight or earlier this morning; no distress noted. Exam Narrative: General: WD/WN male in NAD Heart: normal S1 and S2; no rub Lungs: clear to auscultation Abdomen: soft, nontender, nondistended, positive bowel sounds; RLQ colostomy Extremities: no cyanosis or clubbing; no edema Skin: no rash or nodules Objective Data Vital Signs Vital Signs: Vital Signs Temp Pulse Resp BP Pulse Ox O2 Del Method 01/19/22 12:00 36.3 C L 79 20 125/71 94 01/19/22 08:00 76 20 94 Room Air 01/19/22 05:22 36.5 C 76 20 158/68 H 94 01/18/22 21:39 36.3 C L 74 18 134/51 L 97 01/18/22 20:34 70 14 01/18/22 20:23 72 16 Intake/Output Intake/Output: Intake & Output 01/16/22 01/17/22 01/18/22 01/19/22 23:59 23:59 23:59 23:59 Intake Total 1360 2020 1770 800 Output Total 1725 1050 1825 825 Balance -365 970 -55 -25 Meds/Results Medications: Active Medications Generic Name Dose Route Start Last Admin Trade Name Freq PRN Reason Stop Dose Admin Acetaminophen 650 mg 01/16/22 08:11 Acetaminophen 325 Mg Tablet PO Q6H PRN Mild Pain (1-3) or Fever Albuterol 2.5 mg 01/16/22 08:16 01/18/22 15:35 Albuterol Sulfate Neb 2.5 Mg/3 Ml Inh INHALATION 2.5 mg Q6HRT PRN Administration Shortness Of Breath Apixaban 2.5 mg 01/16/22 09:00 01/19/22 08:17 Apixaban 2.5 Mg Tablet PO 2.5 mg Q12HR [facility]
--- NOTE | 2022-01-19 12:54 | PC.NURSE ---
wound culture resulted final report informed provider Danna Crawley
[2022-01-19] MEDS: IPRATROPIUM BR 0.02% INH SOLN 0.5 MG/2.5 ML VIAL INHALATION ×2 (14:07→21:27)
--- NOTE | 2022-01-19 14:54 | PCDIET ---
called pharmacy for diltiazem 30 mg po no med in pt draw
[2022-01-19] MEDS: CIPROFLOXACIN 250 MG TABLET PO (17:09)
--- NOTE | 2022-01-19 18:07 | PC.NURSE ---
all med passed by Naya Breeding this shift.
[2022-01-19] MEDS: BUDESONIDE RESPULE NEB 0.5 MG/2 ML AMP INHALATION (21:28)
[2022-01-19] MEDS: MELATONIN 5 MG TABLET PO (22:02)
[2022-01-20] VITALS (17 sets, daily range): BP systolic 103–136; BP diastolic 41–56; PULSE 58–79; RESP 16–20; TEMP 35.9–36.6; O2SAT 94–100
[2022-01-20] MEDS: IPRATROPIUM BR 0.02% INH SOLN 0.5 MG/2.5 ML VIAL INHALATION ×4 (03:07→21:07)
[2022-01-20] MEDS: dilTIAZem HCL 30 MG TABLET PO ×3 (05:44→20:23)
[2022-01-20] MEDS: CIPROFLOXACIN 250 MG TABLET PO ×2 (05:44→17:45)
[2022-01-20] MEDS: LEVOTHYROXINE SODIUM 25 MCG TABLET PO (05:44)
[2022-01-20 07:05] LABS: Basophils Percent Auto 0.5 % (0.2-1.2); Eosinophils Absolute Auto 0.6 K/mm3 (0-0.3); Eosinophils Percent Auto 8.2 % (0-4.4); Hematocrit 22.2 % (42.0-52.0); Immature Granulocyte Absolute 0.01 K/mm3 (0.00-0.031); Immature Granulocyte Percent A 0.1 % (0-0.5); Lymphocytes Absolute Auto 0.99 K/mm3 (0.9-3.2); Lymphocytes Percent Auto 13.3 % (18.3-44.2); Mean Corpuscular HGB Conc 31.5 g/dl (32-36); Mean Corpuscular Hemoglobin 27.3 pg (26-34); Mean Corpuscular Volume 86.7 fl (80-100); Mean Platelet Volume 9.8 fl (7.4-10.4); Monocytes Absolute Auto 0.5 K/mm3 (0.1-0.6); Monocytes Percent Auto 7.3 % (2.6-8.5); Neutrophils Absolute Auto 5.2 K/mm3 (1.3-6.7); Neutrophils Percent Auto 70.6 % (45.5-73.1); Platelet Count Result 166 k/mm3 (150-375); Red Blood Count 2.56 M/mm3 (4.6-6.20); Red Cell Distribution Width 16.1 % (11.5-14.5); White Blood Count 7.4 K/mm3 (4.5-10.0)
--- NOTE | 2022-01-20 07:13 | PM.IMPN ---
Progress Note: A&P Assessment and Plan (1) Sacral wound: Code(s): S31.000A - Unspecified open wound of lower back and pelvis without penetration into retroperitoneum, initial encounter Status: Acute Assessment and Plan: Sacral wound, unable to evaluate Consulted wound care and wound cultures were obtained. wound culture revealed Gram-negative bacilli-- no leukocytosis, no signs of infection at the site. (2) Altered mental status: Code(s): R41.82 - Altered mental status, unspecified Status: Acute Assessment and Plan: Resolved (3) OLIVER (acute kidney injury): Code(s): N17.9 - Acute kidney failure, unspecified Status: Acute Assessment and Plan: Recent hospital discharge the patient's creatinine was running between 2.1-2.3 Suspect this is the patient's new baseline 2/2 CKD stage IIIB Suspected urinary tract infection may have played a role? Continue to monitor lab values Monitor fluid volume status closely Nephrology has been consulted, appreciate assistance and recommendations. Patient also has a chronic indwelling Pereira catheter (4) Delirium: Code(s): R41.0 - Disorientation, unspecified Status: Acute Assessment and Plan: Resolved (5) Acute UTI: Code(s): N39.0 - Urinary tract infection, site not specified Status: Acute Assessment and Plan: Follow temp curve, cultures, WBC, and VS Imipenem 1g IV q8h , IV antibiotics discontinued.? Patient did not have a leukocytosis, he has been afebrile for greater than 48 hours, vital signs otherwise stable. However due to the patient's urinary culture revealing Pseudomonas growth as well as wound cultures patient was started on ciprofloxacin. patient has a history of ESBL and E.coli (6) Chronic anemia: Code(s): D64.9 - Anemia, unspecified Status: Chronic Assessment and Plan: Patient has chronic iron deficiency anemia Monitor hemoglobin Continue iron supplement 324 mg p.o. t.i.d. meals ? Patient has been on iron supplementation , however his hemoglobin continues to trend down.? Occult stool negative.? Hemoglobin 7.0 this morning.? Patient does have CKD, although consulted Hematology for further recommendations.? Patient reports he has received iron infusions in the past. Due to the patient's hemoglobin is 7, he is receiving 1 unit of packed red blood cells ?received x1 dose of Epogen by Nephrology on 01/19/2022 (7) Chronic kidney disease, stage 3: Code(s): N18.30 - Chronic kidney disease, stage 3 unspecified Status: Chronic Assessment and Plan: Patient appears at a new baseline for chronic kidney disease, Nephrology has been consulted and suggestive it may advance to CKD stage IIIB possibly due to his hypertension, vascular disease as well as age. (8) Hypomagnesemia: Code(s): E83.42 - Hypomagnesemia Status: Acute Assessment and Plan: Replete serum electrolytes as needed Subjective Date/time seen: 01/20/22 07:13 Patient was evaluated this morning at bedside. He is alert and oriented x4. Denies any acute shortness of breath, chest pain, nausea, vomiting upset stomach diarrhea. Patient's hemoglobin was noted to be 7 this morning. was notified. Patient has received 1 unit of packed red blood cells. He was given x1 dose of Epogen On 01/19/2022. Continue ciprofloxacin for Pseudomonas growth in urine And in wound cultures. negative blood cultures to date. Review of Systems Review of Systems: All systems reviewed & are unremarkable except as noted in HPI and below Exam Narrative: General: No acute distress. ? Morbidly obese pleasant male, myoclonus Mental Status: Awake, alert and oriented to person, place, and time with clear speech. Skin: Skin in warm, dry and intact without rashes or lesions. ? wound to the right lower extremity lateral aspect. ? reported a sacral wound, unable to evaluate--? Stable Head: Normocephalic and atrauma
[2022-01-20 07:20] LABS: Alanine Aminotransferase 17 U/L (6-50); Albumin Level 3.5 g/dL (3.5-5.1); Alkaline Phosphatase 172 U/L (38-126); Anion Gap 7 mmol/L (8-16); Aspartate Amino Transferase 17 U/L (17-59); Bilirubin,Total 0.7 mg/dL (0.2-1.3); Blood Urea Nitrogen 38 mg/dL (9-20); Calcium 7.6 mg/dL (8.4-10.2); Carbon Dioxide 25 mmol/L (22-30); Chloride 109 mmol/L (98-107); Estimated CRCL calculation 43 ml/min; Estimated Glomerular Filt Rate 31; Glucose 94 mg/dL (65-110); Potassium 4.6 mmol/L (3.4-5.0); Sodium 141 mmol/L (137-145)
[2022-01-20] MEDS: SIMETHICONE 80 MG TAB.CHEW PO ×4 (08:39→20:22)
[2022-01-20] MEDS: PANTOPRAZOLE 40 MG TABLET PO (08:40)
[2022-01-20] MEDS: DOCUSATE SODIUM 100 MG CAPSULE PO ×2 (08:40→20:22)
[2022-01-20] MEDS: APIXABAN 2.5 MG TABLET PO ×2 (08:40→20:21)
[2022-01-20] MEDS: FERROUS SULFATE 324 MG TABLET PO ×3 (08:40→17:46)
[2022-01-20] MEDS: GABAPENTIN 400 MG CAPSULE PO ×3 (08:40→17:45)
[2022-01-20] MEDS: BACLOFEN 10 MG TABLET PO ×2 (08:40→20:21)
[2022-01-20] MEDS: EUCERIN CREAM 120 GM JAR 1 APPLIC TOPICAL (08:41)
[2022-01-20] MEDS: ATORVASTATIN 10 MG TABLET PO (08:41)
[2022-01-20] MEDS: SILVERGEL (ELTA) 45 ML 1 APPLIC TOPICAL (08:41)
[2022-01-20] MEDS: PREGABALIN (*CRX) 75 MG CAPSULE PO ×3 (08:44→17:49)
[2022-01-20] MEDS: FLUTICASONE PROPIONATE 0.05% NA SPR 16 GM BTL (*BKC) 1 SPRAY NASAL (08:44)
[2022-01-20] MEDS: BUDESONIDE RESPULE NEB 0.5 MG/2 ML AMP INHALATION ×2 (08:45→21:07)
[2022-01-20] MEDS: UMECLIDINIUM/VILANTEROL 62.5-25 MCG ELLIPTA 1 PUFF INHALATION (08:45)
[2022-01-20] MEDS: TUBING, BLOOD PLUM PUMP TUBING 1 EACH XX (10:29)
[2022-01-20] MEDS: SODIUM CHLORIDE 0.9% IV 250 ML 30 ML IV CONT (10:29)
[2022-01-20] MEDS: MAGNESIUM OXIDE 400 MG TABLET PO (11:08)
--- NOTE | 2022-01-20 13:00 | PM.PNNEP ---
Progress Note: A&P Assessment and Plan (1) OLIVER (acute kidney injury): Code(s): N17.9 - Acute kidney failure, unspecified Status: Acute Assessment and Plan: OLIVER on and unclear baseline. on recent hospital discharge, creatinine was running 21 - 2.3mg/dl On admission this time his creatinine was 2.5 and has improved to 2.1. This may be a new baseline. (2) Chronic kidney disease, stage 3: Code(s): N18.30 - Chronic kidney disease, stage 3 unspecified Status: Chronic Assessment and Plan: creatinine had been running ~ 1.4 - 1.7mg/dl (prior to recent hospitalization) Possibly a new baseline of 2.1 which would give him chronic kidney disease stage IIIB. (3) Acute UTI: Code(s): N39.0 - Urinary tract infection, site not specified Status: Acute Assessment and Plan: Antibiotics switched to p.o. Cipro. Treating this and the wound culture. (4) Altered mental status: Code(s): R41.82 - Altered mental status, unspecified Status: Acute Assessment and Plan: Improved (5) Chronic anemia: Code(s): D64.9 - Anemia, unspecified Status: Chronic Assessment and Plan: hemoglobin is still low at 7.0. We cannot give iron. Will start Epogen Subjective Date/time seen: 01/20/22 13:00 Interval history: Patient feels okay. He has been eating well. No chest pain or shortness of breath Review of Systems Cardiovascular: Cardiovascular: Reports no additional cardiovascular complaints Respiratory: Respiratory: Reports no additional respiratory complaints Gastrointestinal: Gastrointestinal: Reports no additional gastrointestinal complaints Genitourinary: Genitourinary: Reports no additional male genitourinary complaints Exam Narrative: WDWN in NAD skin no rash head ncat lungs clear cor reg no rub abd BS+ nontender and soft ext 1 to2+ bilateral edema. Objective Data Vital Signs Vital Signs: Vital Signs - 24 hr 01/19/22 14:54 01/19/22 14:07 01/19/22 14:15 Temperature Pulse Rate 74 77 Respiratory Rate 16 14 Blood Pressure Pulse Oximetry 94 Oxygen Delivery Room Air 01/19/22 14:00 01/19/22 21:28 01/19/22 21:38 Temperature 36.3 C L Pulse Rate 79 79 76 Respiratory Rate 20 16 16 Blood Pressure 125/71 Pulse Oximetry 94 Oxygen Delivery 01/19/22 22:00 01/20/22 03:07 01/20/22 03:15 Temperature 36.8 C Pulse Rate 80 74 76 Respiratory Rate 18 16 16 Blood Pressure 134/52 L Pulse Oximetry 96 Oxygen Delivery 01/20/22 05:59 01/20/22 08:47 01/20/22 08:47 Temperature 36.5 C Pulse Rate 66 73 Respiratory Rate 20 16 Blood Pressure 136/45 L Pulse Oximetry 97 94 Oxygen Delivery Room Air 01/20/22 08:58 01/20/22 10:41 01/20/22 11:01 Temperature 36.5 C 36.4 C L Pulse Rate 70 68 Respiratory Rate 16 20 18 Blood Pressure 135/41 L 123/46 L Pulse Oximetry 96 94 Oxygen Delivery 01/20/22 08:00 01/20/22 12:01 Temperature 36.2 C L Pulse Rate 68 58 L Respiratory Rate 18 16 Blood Pressure 125/43 L Pulse Oximetry 94 98 Oxygen Delivery Room Air Intake/Output Intake/Output: Intake & Output 01/17/22 01/18/22 01/19/22 01/20/22 23:59 23:59 23:59 23:59 Intake Total 2019 1770 4350 500 Output Total 1050 1825 4025 850 Balance 970 -55 325 -350 Meds/Results Medications: Active Medications Generic Name Dose Route Start Last Admin Trade Name Freq PRN Reason Stop Dose Admin Acetaminophen 650 mg 01/16/22 08:11 Acetaminophen 325 Mg Tablet PO Q6H PRN Mild Pain (1-3) or Fever Albuterol 2.5 mg 01/16/22 08:16 01/18/22 15:35 Albuterol Sulfate Neb 2.5 Mg/3 Ml Inh INHALATION 2.5 mg Q6HRT PRN Administration Shortness Of Breath Apixaban 2.5 mg 01/16/22 09:00 01/20/22 08:40 Apixaban 2.5 Mg Tablet PO 2.5 mg Q12HR VAIBHAV Administration Atorvastatin Calcium 10 mg 01/16/22 09:00 01/20/22 08:41 Atorvas
[2022-01-20 16:23] LABS: Hematocrit 22.8 % (42.0-52.0); Hemoglobin 7.4 g/dL (14.0-18.0); Mean Corpuscular HGB Conc 32.5 g/dl (32-36); Mean Corpuscular Hemoglobin 27.5 pg (26-34); Mean Corpuscular Volume 84.8 fl (80-100); Mean Platelet Volume 9.9 fl (7.4-10.4); Platelet Count Result 172 k/mm3 (150-375); Red Blood Count 2.69 M/mm3 (4.6-6.20); White Blood Count 7.6 K/mm3 (4.5-10.0)
[2022-01-20] MEDS: EPOETIN ALFA 10,000 UNITS/ML VIAL 10000 UNITS SUB-Q (17:44)
[2022-01-20] MEDS: MELATONIN 5 MG TABLET PO (20:22)
[2022-01-20] MEDS: ALBUTEROL SULFATE NEB 2.5 MG/3 ML INH INHALATION (21:07)
[2022-01-21] VITALS (11 sets, daily range): BP systolic 120–147; BP diastolic 44–60; PULSE 67–86; RESP 16–20; TEMP 36.3–36.7; O2SAT 94–99
[2022-01-21] MEDS: IPRATROPIUM BR 0.02% INH SOLN 0.5 MG/2.5 ML VIAL INHALATION ×4 (02:03→20:01)
[2022-01-21] MEDS: CIPROFLOXACIN 250 MG TABLET PO ×2 (05:57→17:07)
[2022-01-21] MEDS: LEVOTHYROXINE SODIUM 25 MCG TABLET PO (05:57)
[2022-01-21] MEDS: dilTIAZem HCL 30 MG TABLET PO ×2 (05:58→20:49)
[2022-01-21 07:34] LABS: Hematocrit 23.6 % (42.0-52.0); Hemoglobin 7.4 g/dL (14.0-18.0); Mean Corpuscular HGB Conc 31.4 g/dl (32-36); Mean Corpuscular Hemoglobin 27.2 pg (26-34); Mean Corpuscular Volume 86.8 fl (80-100); Mean Platelet Volume 9.9 fl (7.4-10.4); Platelet Count Result 155 k/mm3 (150-375); Red Blood Count 2.72 M/mm3 (4.6-6.20); Red Cell Distribution Width 16.5 % (11.5-14.5); White Blood Count 6.8 K/mm3 (4.5-10.0)
[2022-01-21 07:50] LABS: Albumin Level 3.4 g/dL (3.5-5.1); Anion Gap 8 mmol/L (8-16); Blood Urea Nitrogen 36 mg/dL (9-20); Calcium 7.8 mg/dL (8.4-10.2); Carbon Dioxide 24 mmol/L (22-30); Chloride 109 mmol/L (98-107); Estimated CRCL calculation 43 ml/min; Estimated Glomerular Filt Rate 31; Glucose 101 mg/dL (65-110); Phosphorus 4.2 mg/dL (2.5-4.5); Potassium 4.4 mmol/L (3.4-5.0); Sodium 141 mmol/L (137-145)
[2022-01-21] MEDS: MECLIZINE HCL 12.5 MG TABLET PO (08:39)
[2022-01-21] MEDS: SIMETHICONE 80 MG TAB.CHEW PO ×4 (08:39→20:49)
[2022-01-21] MEDS: DOCUSATE SODIUM 100 MG CAPSULE PO ×2 (08:39→20:49)
[2022-01-21] MEDS: FERROUS SULFATE 324 MG TABLET PO ×2 (08:39→14:03)
[2022-01-21] MEDS: BACLOFEN 10 MG TABLET PO ×2 (08:39→20:49)
[2022-01-21] MEDS: GABAPENTIN 400 MG CAPSULE PO ×3 (08:39→17:07)
[2022-01-21] MEDS: PANTOPRAZOLE 40 MG TABLET PO (08:40)
[2022-01-21] MEDS: ATORVASTATIN 10 MG TABLET PO (08:40)
[2022-01-21] MEDS: FLUTICASONE PROPIONATE 0.05% NA SPR 16 GM BTL (*BKC) 1 SPRAY NASAL (08:40)
[2022-01-21] MEDS: APIXABAN 2.5 MG TABLET PO ×2 (08:41→20:49)
[2022-01-21] MEDS: PREGABALIN (*CRX) 75 MG CAPSULE PO ×3 (08:41→17:07)
[2022-01-21] MEDS: SILVERGEL (ELTA) 45 ML 1 APPLIC TOPICAL (08:42)
[2022-01-21] MEDS: EUCERIN CREAM 120 GM JAR 1 APPLIC TOPICAL (08:43)
[2022-01-21] MEDS: UMECLIDINIUM/VILANTEROL 62.5-25 MCG ELLIPTA 1 PUFF INHALATION (10:17)
[2022-01-21] MEDS: BUDESONIDE RESPULE NEB 0.5 MG/2 ML AMP INHALATION ×2 (10:17→20:00)
--- NOTE | 2022-01-21 13:28 | PM.IMPN ---
Progress Note: A&P Assessment and Plan (1) Acute UTI: Code(s): N39.0 - Urinary tract infection, site not specified Status: Acute Assessment and Plan: Urine culture with pseudomonas growth sensitive to fluoroquinolones; resistant to imipenem. Continue Ciprofloxacin 500 mg BID x7 days. Blood cultures negative to date. Follow temp curve, cultures, WBC, and VS (2) Sacral wound: Code(s): S31.000A - Unspecified open wound of lower back and pelvis without penetration into retroperitoneum, initial encounter Status: Acute Assessment and Plan: Stable. Consulted wound care and wound cultures were obtained. wound culture with pseudomonas growth sensitive to fluoroquinolones. Continue Ciprofloxacin 500 mg PO BID x 7 days. Off-loading mattress and turn Q2 hours. (3) OLIVER (acute kidney injury): Code(s): N17.9 - Acute kidney failure, unspecified Status: Acute Assessment and Plan: Recent hospital discharge the patient's creatinine was running between 2.1-2.3. Suspect this is the patient's new baseline 2/2 CKD stage IIIB Nephrology consulted and appreciate recommendations. Suspected urinary tract infection may have played a role? Patient also has a chronic indwelling Pereira catheter Continue to monitor lab values Monitor fluid volume status closely Avoid nephrotoxic agents. (4) Altered mental status: Code(s): R41.82 - Altered mental status, unspecified Status: Acute Assessment and Plan: Resolved (5) Delirium: Code(s): R41.0 - Disorientation, unspecified Status: Acute Assessment and Plan: Resolved (6) Chronic anemia: Code(s): D64.9 - Anemia, unspecified Status: Chronic Assessment and Plan: Patient has chronic iron deficiency anemia. Likely worsened with CKD, frequent lab work and acute illness. Hematology consulted and will follow outpatient. s/p 1 unit PRBC 01/20/22. Hemoglobin still 7.4. Epogen started this hospitalization MWF, started 01/19/22. Holding iron supplementing iron supplement due to antibiotic and drug-drug interaction. (7) Chronic kidney disease, stage 3: Code(s): N18.30 - Chronic kidney disease, stage 3 unspecified Status: Chronic Assessment and Plan: Possible new baseline for chronic kidney disease Nephrology consulted and appreciate recommendations. May have advanced to CKD stage IIIB possibly due to his hypertension, vascular disease as well as age. (8) Hypomagnesemia: Code(s): E83.42 - Hypomagnesemia Status: Acute Assessment and Plan: Replete serum electrolytes as needed Time Spent With Patient Time with patient: 15 - 25 minutes Subjective Date/time seen: 01/21/22 13:28 Interval history: Patient found lying in bed. He reports brief upper extremity shaking overnight that has resolved. He denies chest pain, SOB, abdominal pain, nausea or vomiting. Colostomy patent with dark brown/green stool. Pereira without hematuria. Review of Systems Review of Systems: All systems reviewed & are unremarkable except as noted in HPI and below Exam Narrative: General: No acute distress. Morbidly obese pleasant male lying in bed. Mental Status: Awake, alert and oriented to person, place, and time with clear speech. Pleasant and cooperative with examination. Skin: Skin fair, warm, and dry without rashes. ? wound to the right lower extremity lateral aspect with scabbed ulceration, surrounding skin with bronzing discoloration, normothermic. ?Multiple small, shallow stage 2 pressure ulcerations bilaterally, wound bed yellow with scant serosanguinous discharge, surrounding skin with dry, flaky, macerated skin. Left flank with dime-sized stage 2 pressure ulcer, wound bed yellow with scant serosanguinous discharge. No Head: Normocephalic and atraumatic. Eyes: Conjunctivae are clear without exudates or hemorrhage. Sclera is non-icteric. EOM intact, PERRL.
--- NOTE | 2022-01-21 13:32 | PM.PNNEP ---
Progress Note: A&P Assessment and Plan (1) OLIVER (acute kidney injury): Code(s): N17.9 - Acute kidney failure, unspecified Status: Acute Assessment and Plan: OLIVER on and unclear baseline. on recent hospital discharge, creatinine was running 2.1 - 2.3mg/dl On admission this time his creatinine was 2.5 and has improved to 2.1. This may be a new baseline. (2) Chronic kidney disease, stage 3: Code(s): N18.30 - Chronic kidney disease, stage 3 unspecified Status: Chronic Assessment and Plan: creatinine had been running ~ 1.4 - 1.7mg/dl (prior to recent hospitalization) due to hypertension, vascular disease. Possibly a new baseline of 2.1 which would give him chronic kidney disease stage IIIB. (3) Acute UTI: Code(s): N39.0 - Urinary tract infection, site not specified Status: Acute Assessment and Plan: Antibiotics switched to p.o. Cipro. Treating this and the wound culture. (4) Altered mental status: Code(s): R41.82 - Altered mental status, unspecified Status: Acute Assessment and Plan: Improved (5) Chronic anemia: Code(s): D64.9 - Anemia, unspecified Status: Chronic Assessment and Plan: hemoglobin is still low at 7.0. We cannot give iron since he is on Cipro. His TSAT was 20% on January 17.. On Epogen. Discussed with Subjective Date/time seen: 01/21/22 13:32 Interval history: Patient feels okay. He has been eating well. Not on oxygen. No chest pain or shortness of breath Exam Narrative: WDWN in NAD skin no rash head ncat lungs clear Bilaterally cor reg no rub or gallop abd BS+ nontender and soft ext 1 to 2+ bilateral edema. Objective Data Vital Signs Vital Signs: Vital Signs - 24 hr 01/20/22 14:25 01/20/22 14:31 01/20/22 14:00 Temperature 36.6 C Pulse Rate 72 66 70 Respiratory Rate 16 16 16 Blood Pressure 113/43 L Pulse Oximetry 94 Oxygen Delivery 01/20/22 14:01 01/20/22 22:00 01/20/22 20:00 Temperature 35.9 C L 36.6 C Pulse Rate 79 72 Respiratory Rate 20 18 Blood Pressure 103/42 L 133/56 L Pulse Oximetry 100 96 Oxygen Delivery Room Air 01/20/22 21:09 01/20/22 21:09 01/20/22 21:29 Temperature Pulse Rate 68 68 68 Respiratory Rate 18 18 18 Blood Pressure Pulse Oximetry 96 Oxygen Delivery Room Air 01/21/22 02:15 01/21/22 02:25 01/21/22 06:00 Temperature 36.7 C Pulse Rate 72 72 73 Respiratory Rate 18 18 18 Blood Pressure 120/44 L Pulse Oximetry 99 Oxygen Delivery 01/21/22 10:10 01/21/22 10:19 01/21/22 10:20 Temperature Pulse Rate 71 73 Respiratory Rate 18 18 Blood Pressure Pulse Oximetry 95 Oxygen Delivery Room Air 01/21/22 08:00 Temperature Pulse Rate Respiratory Rate Blood Pressure Pulse Oximetry Oxygen Delivery Room Air Intake/Output Intake/Output: Intake & Output 01/18/22 01/19/22 01/20/22 01/21/22 23:59 23:59 23:59 23:59 Intake Total 1770 4350 3250 480 Output Total 1825 4025 2350 450 Balance -55 325 900 30 Meds/Results Medications: Active Medications Generic Name Dose Route Start Last Admin Trade Name Freq PRN Reason Stop Dose Admin Acetaminophen 650 mg 01/16/22 08:11 Acetaminophen 325 Mg Tablet PO Q6H PRN Mild Pain (1-3) or Fever Albuterol 2.5 mg 01/16/22 08:16 01/20/22 21:07 Albuterol Sulfate Neb 2.5 Mg/3 Ml Inh INHALATION 2.5 mg Q6HRT PRN Administration Shortness Of Breath Apixaban 2.5 mg 01/16/22 09:00 01/21/22 08:41 Apixaban 2.5 Mg Tablet PO 2.5 mg Q12HR VAIBHAV Administration Atorvastatin Calcium 10 mg 01/16/22 09:00 01/21/22 08:40 Atorvastatin 10 Mg Tablet PO 10 mg DAILY VAIBHAV Administration Baclofen 10 mg 01/16/22 09:00 01/21/22 08:39 Baclofen 10 Mg Tablet PO 10 mg Q12HR VAIBHAV Administration Budesonide 0.5 mg 01/16/22 08:00 01/21/22 10:17 Budesonide Respule
[2022-01-21] MEDS: MAGNESIUM OXIDE 400 MG TABLET PO (14:02)
--- NOTE | 2022-01-21 14:59 | PCNSR ---
On 01/21/22, the student, Kathy Kovacs, provided care and completed [facility] documentation on this patient. I have reviewed the student's documentation and agree with the findings.
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
[2022-01-21] MEDS: MELATONIN 5 MG TABLET PO (20:49)
[2022-01-22] VITALS (13 sets, daily range): BP systolic 116–135; BP diastolic 52–55; PULSE 66–85; RESP 14–20; TEMP 36–36.8; O2SAT 94–100
[2022-01-22] MEDS: IPRATROPIUM BR 0.02% INH SOLN 0.5 MG/2.5 ML VIAL INHALATION ×4 (01:47→20:19)
[2022-01-22] MEDS: CIPROFLOXACIN 250 MG TABLET PO ×2 (05:52→16:58)
[2022-01-22] MEDS: dilTIAZem HCL 30 MG TABLET PO ×3 (05:52→21:45)
[2022-01-22] MEDS: LEVOTHYROXINE SODIUM 25 MCG TABLET PO (05:52)
[2022-01-22 07:32] LABS: Albumin Level 3.3 g/dL (3.5-5.1); Anion Gap 6 mmol/L (8-16); Blood Urea Nitrogen 29 mg/dL (9-20); Calcium 7.9 mg/dL (8.4-10.2); Carbon Dioxide 22 mmol/L (22-30); Chloride 110 mmol/L (98-107); Estimated CRCL calculation 50 ml/min; Estimated Glomerular Filt Rate 37; Glucose 89 mg/dL (65-110); Hematocrit 23.4 % (42.0-52.0); Hemoglobin 7.7 g/dL (14.0-18.0); Phosphorus 3.9 mg/dL (2.5-4.5); Potassium 4.4 mmol/L (3.4-5.0); Sodium 138 mmol/L (137-145)
[2022-01-22] MEDS: FLUTICASONE PROPIONATE 0.05% NA SPR 16 GM BTL (*BKC) 1 SPRAY NASAL (08:17)
[2022-01-22] MEDS: PREGABALIN (*CRX) 75 MG CAPSULE PO ×3 (08:17→16:58)
[2022-01-22] MEDS: SILVERGEL (ELTA) 45 ML 1 APPLIC TOPICAL (08:18)
[2022-01-22] MEDS: PANTOPRAZOLE 40 MG TABLET PO (08:18)
[2022-01-22] MEDS: SIMETHICONE 80 MG TAB.CHEW PO ×4 (08:18→21:45)
[2022-01-22] MEDS: DOCUSATE SODIUM 100 MG CAPSULE PO ×2 (08:18→21:45)
[2022-01-22] MEDS: ATORVASTATIN 10 MG TABLET PO (08:18)
[2022-01-22] MEDS: GABAPENTIN 400 MG CAPSULE PO ×3 (08:18→16:58)
[2022-01-22] MEDS: APIXABAN 2.5 MG TABLET PO ×2 (08:18→21:44)
[2022-01-22] MEDS: BACLOFEN 10 MG TABLET PO ×2 (08:18→21:45)
[2022-01-22] MEDS: EUCERIN CREAM 120 GM JAR 1 APPLIC TOPICAL (08:19)
[2022-01-22] MEDS: BUDESONIDE RESPULE NEB 0.5 MG/2 ML AMP INHALATION ×2 (08:23→20:19)
[2022-01-22] MEDS: UMECLIDINIUM/VILANTEROL 62.5-25 MCG ELLIPTA 1 PUFF INHALATION (08:23)
[2022-01-22] MEDS: MAGNESIUM OXIDE 400 MG TABLET PO (11:59)
[2022-01-22] MEDS: EPOETIN ALFA 10,000 UNITS/ML VIAL 10000 UNITS SUB-Q (14:35)
--- NOTE | 2022-01-22 14:38 | PM.IMPN ---
Progress Note: A&P Assessment and Plan (1) Acute UTI: Code(s): N39.0 - Urinary tract infection, site not specified Status: Acute Assessment and Plan: Urine culture with pseudomonas growth sensitive to fluoroquinolones; resistant to imipenem. Continue Ciprofloxacin 500 mg BID x7 days. Day 3. Blood cultures negative to date. (2) Sacral wound: Code(s): S31.000A - Unspecified open wound of lower back and pelvis without penetration into retroperitoneum, initial encounter Status: Acute Assessment and Plan: Present on admission. Stable. Consulted wound care and wound cultures were obtained. wound culture with pseudomonas growth sensitive to fluoroquinolones. Continue Ciprofloxacin 500 mg PO BID x 7 days. Off-loading mattress and turn Q2 hours. (3) OLIVER (acute kidney injury): Code(s): N17.9 - Acute kidney failure, unspecified Status: Acute Assessment and Plan: Recent hospital discharge the patient's creatinine was running between 2.1-2.3. Suspect this is the patient's new baseline 2/2 CKD stage IIIB Nephrology consulted and appreciate recommendations. Suspected urinary tract infection may have played a role? Patient also has a chronic indwelling Pereira catheter Monitor I/O. Avoid nephrotoxic agents. Renal function improved today. GFR 37. Will repeat renal function panel tomorrow given patient and family concern. If stable, will plan to discharge tomorrow am. (4) Altered mental status: Qualifiers: Altered mental status type: delirium Qualified Code(s): R41.0 - Disorientation, unspecified Code(s): R41.82 - Altered mental status, unspecified Status: Acute Assessment and Plan: Resolved (5) Chronic anemia: Code(s): D64.9 - Anemia, unspecified Status: Chronic Assessment and Plan: Anemia of chronic disease. Hematology consulted and will follow outpatient. s/p 1 unit PRBC 01/20/22. Hemoglobin still 7.7. Epogen started this hospitalization MWF, started 01/19/22 and will be continued outpatient. Holding iron supplementing iron supplement due to antibiotic and drug-drug interaction. No s/s acute bleeding. (6) Chronic kidney disease, stage 3: Qualifiers: Chronic kidney disease stage 3 subtype: stage 3b (GFR 30-44) Qualified Code(s): N18.32 - Chronic kidney disease, stage 3b Code(s): N18.30 - Chronic kidney disease, stage 3 unspecified Status: Chronic Assessment and Plan: As above. (7) Hypomagnesemia: Code(s): E83.42 - Hypomagnesemia Status: Acute Assessment and Plan: Replete serum electrolytes as needed Plan DISPOSITION: Return to SNF. CODE STATUS: FULL CODE Time Spent With Patient Time with patient: 15 - 25 minutes Subjective Date/time seen: 01/22/22 14:38 Interval history: Patient denies tremors in the past 24 hours. He reports his sleep has not been great. Patient's daughter is concerned about him discharging too soon as he has had two hospital returns in the past month. She also reports he sometimes is staring off. She denies confusion or disorientation. He has had a h/o ICU psychosis, per daughter. Review of Systems Review of Systems: All systems reviewed & are unremarkable except as noted in HPI and below Exam Narrative: General: No acute distress. Tired appearing obese male lying in bed. Mental Status/Psych: Awake, alert and oriented to person, place, and time with clear speech. Pleasant and cooperative with examination. Neutral mood and affect. Skin: Skin fair, warm, and dry without rashes. Wound to the right lower extremity lateral aspect dressing clean, dry and intact. Skin with bronzing discoloration, normothermic BLE. ?Sacral ulcers not visualized today. HEENT: Normocephalic. Conjunctivae are clear without exudates or hemorrhage. Sclera is non-icteric. PERRL. Grossly normal hearing. Oral mucosa pink and
[2022-01-22] MEDS: ALBUTEROL SULFATE NEB 2.5 MG/3 ML INH INHALATION (20:19)
[2022-01-22] MEDS: MELATONIN 5 MG TABLET PO (21:45)
[2022-01-23] VITALS (9 sets, daily range): BP systolic 123–128; BP diastolic 48–55; PULSE 65–78; RESP 16–20; TEMP 36.6; O2SAT 91–96
[2022-01-23] MEDS: IPRATROPIUM BR 0.02% INH SOLN 0.5 MG/2.5 ML VIAL INHALATION ×3 (02:00→14:36)
[2022-01-23] MEDS: ALBUTEROL SULFATE NEB 2.5 MG/3 ML INH INHALATION (02:00)
[2022-01-23] MEDS: CIPROFLOXACIN 250 MG TABLET PO ×2 (06:08→17:18)
[2022-01-23] MEDS: LEVOTHYROXINE SODIUM 25 MCG TABLET PO (06:08)
[2022-01-23 07:02] LABS: Albumin Level 3.4 g/dL (3.5-5.1); Anion Gap 8 mmol/L (8-16); Blood Urea Nitrogen 31 mg/dL (9-20); Calcium 7.7 mg/dL (8.4-10.2); Carbon Dioxide 24 mmol/L (22-30); Chloride 108 mmol/L (98-107); Estimated CRCL calculation 45 ml/min; Estimated Glomerular Filt Rate 33; Glucose 92 mg/dL (65-110); Magnesium 1.2 mg/dL (1.6-2.3); Phosphorus 4.4 mg/dL (2.5-4.5); Potassium 4.4 mmol/L (3.4-5.0); Sodium 140 mmol/L (137-145)
[2022-01-23] MEDS: UMECLIDINIUM/VILANTEROL 62.5-25 MCG ELLIPTA 1 PUFF INHALATION (08:41)
[2022-01-23] MEDS: BUDESONIDE RESPULE NEB 0.5 MG/2 ML AMP INHALATION (08:41)
[2022-01-23] MEDS: FLUTICASONE PROPIONATE 0.05% NA SPR 16 GM BTL (*BKC) 1 SPRAY NASAL (09:21)
[2022-01-23] MEDS: SIMETHICONE 80 MG TAB.CHEW PO ×3 (09:21→17:18)
[2022-01-23] MEDS: PANTOPRAZOLE 40 MG TABLET PO (09:21)
[2022-01-23] MEDS: BACLOFEN 10 MG TABLET PO (09:22)
[2022-01-23] MEDS: APIXABAN 2.5 MG TABLET PO (09:22)
[2022-01-23] MEDS: EUCERIN CREAM 120 GM JAR 1 APPLIC TOPICAL (09:22)
[2022-01-23] MEDS: PREGABALIN (*CRX) 75 MG CAPSULE PO ×3 (09:22→17:18)
[2022-01-23] MEDS: DOCUSATE SODIUM 100 MG CAPSULE PO (09:22)
[2022-01-23] MEDS: GABAPENTIN 400 MG CAPSULE PO ×3 (09:22→17:18)
[2022-01-23] MEDS: ATORVASTATIN 10 MG TABLET PO (09:22)
[2022-01-23] MEDS: SILVERGEL (ELTA) 45 ML 1 APPLIC TOPICAL (09:22)
[2022-01-23] MEDS: MAGNESIUM OXIDE 400 MG TABLET PO (11:13)
[2022-01-23] MEDS: MAGNESIUM SULF 2 GM/WATER 50ML 2 GM/50 ML BAG IVPB (11:13)
--- NOTE | 2022-01-23 12:10 | PM.DS ---
DS: Admitting Diagnosis Discharge Date 01/23/2022 1210 Admitting Diagnosis Acute UTI Altered mental status Acute on CKD, stage 3 DS: Discharge Diagnosis Discharge Diagnosis (1) Acute UTI: Code(s): N39.0 - Urinary tract infection, site not specified Status: Acute Assessment and Plan: UA with 2+ leukocytes, 31-50 WBC, and trace bacteria. He was initially treated with IV Rocephin for UTI. On 01/16 Primaxin 500 mg Q8 hours was initiated due to prior history of ESBL Urine culture showed 50,000 to 100,000 CFU pseudomonas growth sensitive to fluoroquinolones; resistant to imipenem, ceftazidime and cefepime. On 01/19 Primaxin was stopped and he was started on Ciprofloxacin 250 mg BID. It will be continued for 4 more days at discharge to treat complicated UTI and sacral wound infection. Blood cultures were negative x2 (2) Sacral wound: Code(s): S31.000A - Unspecified open wound of lower back and pelvis without penetration into retroperitoneum, initial encounter Status: Acute Assessment and Plan: Present on admission. Consulted wound care. Wound culture with moderate pseudomonas growth sensitive to fluoroquinolones, with similar resistance pattern as urine culture. He was treated with Ciprofloxacin 250 PO BID as above. Off-loading mattress and turn Q2 hours. (3) OLIVER (acute kidney injury): Code(s): N17.9 - Acute kidney failure, unspecified Status: Acute Assessment and Plan: Acute on chronic kidney disease, stage 3b On admission patient was admitted with AMS. Glucose was 59. BUN 60, creatinine 2.6, GFR 24. His most recent hospital he had creatinine between 2.1-2.3. Nephrology was consulted and assisted in monitoring. Renal function was trended and improved with treatment of UTI. Creatinine remained 2.4 to 1.8. Upon discharge creatinine was 2.0, GFR 33. This was thought to be the patient's new baseline 2/2 CKD stage 3b Medications were adjusted for renal function- lyrica was decreased. He was also taking gabapentin and instructions were given to wean this medication until it could be discontinued over the next 7 days. He will have follow up with Nephrology in 1-2 weeks. (4) Altered mental status: Qualifiers: Altered mental status type: delirium Qualified Code(s): R41.0 - Disorientation, unspecified Code(s): R41.82 - Altered mental status, unspecified Status: Acute Assessment and Plan: Thought to be multifactorial due to acute UTI and skin infection, CKD and medications. The patient did become more alerted and was oriented x3. His daughter reported concern for fogginess. The patient was noted to have poor sleep during his hospital stay, was previously using bipap on his prior hospitalization but refusing, and was noted to be taking both lyrica and gabapentin. As above, Lyrica dose was adjusted for renal function. Gabapentin was instructed to be weaned off over the next week. Additionally, melatonin was added for sleep. He was counseled on outpatient sleep study and wearing the pap machine if needed to help with this. Multiple discussions were had between the patient, patient's daughter and myself regarding controlling for sleep, polypharmacy, sleep apnea and infection first and then further evaluation if fogginess persists. B12 was normal. TSH was 1.26 on 01/03/22. (5) Chronic anemia: Code(s): D64.9 - Anemia, unspecified Status: Chronic Assessment and Plan: Hemoglobin was 8.1 on admission and had been 7 to 10 mg/dL on his prior hospital stay. The patient c/o fatigue and weakness. His daughter reported concern for fogginess. Serum iron was 44, TIBC 218, and saturation 20%. He was taking oral ferrous sulfate 325 mg TID, however, this was stopped when he started taking ciprofloxacin due to drug-drug interaction. The patient received 1 unit PRBC on 01/20 with minimal improvement in hemoglobin from 7 to 7.
[2022-01-23] MEDS: dilTIAZem HCL 30 MG TABLET PO (13:18)
--- NOTE | 2022-01-23 14:25 | PCDIET ---
Pt has been educated multiple times by internal affairs commander Kathy Kovacs for renal diet information. Handouts provided to pt for use upon discharge.
[2022-01-23 15:04] LABS: EDCOVIDSCREEN Negative (Negative)
== END 2022-01-23 18:10 | DRG 698 ==
LOC: ANHED 01-16 00:02 → ANH3MEDSUR 01-16 02:22
PROVIDERS: Emergency Medicine; Internal Medicine Hematology & Oncology; Internal Medicine Nephrology; Nurse Practitioner Family; Admitting Provider Internal Medicine; Emergency Provider Emergency Medicine; PCP Internal Medicine; Visit Provider Nurse Practitioner Family
DX: T83.511A Infection and inflammatory reaction due to indwelling urethral catheter, initial encounter (principal); J96.01 Acute respiratory failure with hypoxia; J96.02 Acute respiratory failure with hypercapnia; I13.0 Hypertensive heart and chronic kidney disease with heart failure and stage 1 through stage 4 chronic kidney disease, or unspecified chronic kidney disease; N17.9 Acute kidney failure, unspecified; G82.20 Paraplegia, unspecified; I50.32 Chronic diastolic (congestive) heart failure; N39.0 Urinary tract infection, site not specified; B96.5 Pseudomonas (aeruginosa) (mallei) (pseudomallei) as the cause of diseases classified elsewhere; N18.32 Chronic kidney disease, stage 3b; E83.42 Hypomagnesemia; Z20.822 Contact with and (suspected) exposure to COVID-19; J44.9 Chronic obstructive pulmonary disease, unspecified; I48.91 Unspecified atrial fibrillation; E53.8 Deficiency of other specified B group vitamins; R41.0 Disorientation, unspecified; E11.22 Type 2 diabetes mellitus with diabetic chronic kidney disease; E11.42 Type 2 diabetes mellitus with diabetic polyneuropathy; E11.65 Type 2 diabetes mellitus with hyperglycemia; N31.9 Neuromuscular dysfunction of bladder, unspecified; K21.9 Gastro-esophageal reflux disease without esophagitis; S31.000A Unspecified open wound of lower back and pelvis without penetration into retroperitoneum, initial encounter; D50.9 Iron deficiency anemia, unspecified; E55.9 Vitamin D deficiency, unspecified; E03.9 Hypothyroidism, unspecified; E66.01 Morbid (severe) obesity due to excess calories; Z68.37 Body mass index [BMI] 37.0-37.9, adult; I87.2 Venous insufficiency (chronic) (peripheral); I73.9 Peripheral vascular disease, unspecified; Z89.619 Acquired absence of unspecified leg above knee; Z79.01 Long term (current) use of anticoagulants; Z86.16 Personal history of COVID-19; Z89.412 Acquired absence of left great toe; Z87.891 Personal history of nicotine dependence; Z93.3 Colostomy status; D63.1 Anemia in chronic kidney disease
CPT/HCPCS: 36415; 36430; 36600; 70450; 71045; 80048; 80053; 80069; 80307; 81001; 82274; 82607; 82805; 82948; 83540; 83550; 83605; 83735; 85014; 85018; 85025; 85027; 86850; 86900; 86901; 86920; 87040; 87070; 87077; 87086; 87088; 87186; 87205; 87426; 93005; 94640; 94667; 94668; 96361; 96365; 96367; 96375; 97110; 97161; 97166; 99285; A9270; C9803; G0378; J0696; J0743; J3475; J7030; J7050; P9016; Q4081; Q5105; U0003; U0005

== ENCOUNTER 2022-03-17 15:24 | Outpatient (CLI) | payer MEDICARE, BC, MEDICAID, SELFPAY ==
[2022-03-17 15:43] LABS: Basophils Absolute Auto 0.1 K/mm3 (0.0-0.1); Basophils Percent Auto 0.6 % (0.2-1.2); Eosinophils Absolute Auto 0.6 K/mm3 (0-0.3); Eosinophils Percent Auto 5.6 % (0-4.4); Hematocrit 33.6 % (42.0-52.0); Hemoglobin 10.9 g/dL (14.0-18.0); Immature Granulocyte Absolute 0.03 K/mm3 (0.00-0.031); Immature Granulocyte Percent A 0.3 % (0-0.5); Lymphocytes Absolute Auto 1.57 K/mm3 (0.9-3.2); Lymphocytes Percent Auto 14.9 % (18.3-44.2); Mean Corpuscular HGB Conc 32.4 g/dl (32-36); Mean Corpuscular Hemoglobin 27.3 pg (26-34); Mean Corpuscular Volume 84.2 fl (80-100); Mean Platelet Volume 9.7 fl (7.4-10.4); Monocytes Absolute Auto 0.8 K/mm3 (0.1-0.6); Monocytes Percent Auto 7.5 % (2.6-8.5); Neutrophils Absolute Auto 7.5 K/mm3 (1.3-6.7); Neutrophils Percent Auto 71.1 % (45.5-73.1); Platelet Count Result 242 k/mm3 (150-375); Red Blood Count 3.99 M/mm3 (4.6-6.20); Red Cell Distribution Width 15.9 % (11.5-14.5); White Blood Count 10.6 K/mm3 (4.5-10.0)
[2022-03-17 16:43] LABS: Iron 37 ug/dL (49-181)
[2022-03-17 16:45] LABS: Anion Gap 12 mmol/L (8-16); Blood Urea Nitrogen 65 mg/dL (9-20); Calcium 9.2 mg/dL (8.4-10.2); Carbon Dioxide 26 mmol/L (22-30); Chloride 98 mmol/L (98-107); Estimated Glomerular Filt Rate 31; Glucose 103 mg/dL (65-110); Potassium 4.1 mmol/L (3.4-5.0); Sodium 136 mmol/L (137-145)
[2022-03-17 16:54] LABS: Percent Iron Saturation 13 % (20-50)
== END 2022-03-17 15:25 | disposition home or self-care (01) ==
PROVIDERS: PCP Internal Medicine; Visit Provider Internal Medicine Hematology & Oncology
DX: D64.9 Anemia, unspecified (principal)
CPT/HCPCS: 36415; 80048; 82607; 82728; 83540; 83550; 85025

== ENCOUNTER 2022-06-18 13:42 | Outpatient (CLI) | payer MEDICARE, BC, MEDICAID, SELFPAY ==
[2022-06-18 13:52] LABS: Basophils Percent Auto 0.4 % (0.2-1.2); Eosinophils Absolute Auto 0.6 K/mm3 (0-0.3); Eosinophils Percent Auto 6.8 % (0-4.4); Hematocrit 30.7 % (42.0-52.0); Immature Granulocyte Absolute 0.03 K/mm3 (0.00-0.031); Immature Granulocyte Percent A 0.3 % (0-0.5); Lymphocytes Absolute Auto 1.41 K/mm3 (0.9-3.2); Lymphocytes Percent Auto 15.4 % (18.3-44.2); Mean Corpuscular HGB Conc 32.6 g/dl (32-36); Mean Corpuscular Hemoglobin 26.9 pg (26-34); Mean Corpuscular Volume 82.5 fl (80-100); Monocytes Absolute Auto 0.7 K/mm3 (0.1-0.6); Monocytes Percent Auto 7.3 % (2.6-8.5); Neutrophils Absolute Auto 6.4 K/mm3 (1.3-6.7); Neutrophils Percent Auto 69.8 % (45.5-73.1); Platelet Count Result 182 k/mm3 (150-375); Red Blood Count 3.72 M/mm3 (4.6-6.20); Red Cell Distribution Width 15.3 % (11.5-14.5); White Blood Count 9.2 K/mm3 (4.5-10.0)
== END 2022-06-18 13:43 | disposition home or self-care (01) ==
PROVIDERS: PCP Internal Medicine; Visit Provider Internal Medicine Hematology & Oncology
DX: N18.32 Chronic kidney disease, stage 3b (principal); D63.1 Anemia in chronic kidney disease
CPT/HCPCS: 36415; 85025

== ENCOUNTER 2022-07-31 14:01 | Emergency (ER) | payer MEDICARE, BC, MEDICAID, SELFPAY ==
[2022-07-31] VITALS (35 sets, daily range): BP systolic 137–201; BP diastolic 55–86; PULSE 63–89; RESP 8–26; O2SAT 94–99
--- NOTE | ~2022-07-31 | CT_ITS ---
EXAMINATION: CTA brain carotid DATE: 07/31/2022 17:23 INDICATION: Diplopia. TECHNIQUE: Computed tomographic angiography (CTA) of the head was performed without and with 100 mL O mnipaque-350 intravenous contrast. CTA of the neck was performed with intravenous contrast. Automated exposure control and iterative reconstruction technique were employed. The dose-length product was 1 985.50 mGy-cm. Maximum intensity projection and volume rendered 3D-reconstructions were created by meño padilla technologist on a separate workstation. COMPARISON: Head CT 01/15/2022, chest CT 01/03/2022 FINDINGS: HEAD CTA: There is no intracranial hemorrhage, acute infarction, or abnormal intracranial mass lesion . The ventricles are normal in size. There is mucosal thickening in the paranasal sinuses. The orbits are normal. The mastoid air cells are normal. Left vertebral artery is dominant. There is no signifi cant stenosis of basilar artery or the posterior cerebral arteries. There is no significant stenosis of the intracranial internal carotid arteries or anterior or middle cerebral arteries. Anterior commu nicating artery is normal. Posterior communicating arteries are not identified. There is no aneurysm. NECK CTA: There is mild emphysema. Partially visualized are nodules in right lower lobe measuring up to 8 mm. There are nodules in the thyroid measuring up to 16 mm. There are no pathologically enlarged lymph nodes. There is no significant stenosis of the vertebral arteries. There is plaque in the prox imal internal carotid arteries. There is 42% stenosis of the proximal right internal carotid artery r elative to normal distal artery lumen diameter (NASCET criteria). There is 20% stenosis of the proxim al left internal carotid artery relative to normal distal artery lumen diameter. There is severe cerv ical spondylosis. IMPRESSION: 1. Normal brain. No aneurysm or significant intracranial calcinosis. 2. 42% stenosis of the proximal right internal carotid artery relative to normal distal artery lumen diameter (NASCET criteria). 3. 20% stenosis of the proximal left internal carotid artery relative to normal distal artery lumen d iameter. 4. Partially visualized pulmonary nodules measuring up to 8 mm in right lower lobe, new from 2, probably infection. Noncontrast chest CT is recommended. 5. Multinodular goiter. Consider thyroid ultrasound for risk stratification. Reviewed, dictated and finalized at location E. RANCE PRODUCER IMPRESSION: 1. Normal brain. No aneurysm or significant intracranial calcinosis. 2. 42% stenosis of the proximal right internal carotid artery relative to kamlesh l distal artery lumen diameter (NASCET criteria). 3. 20% stenosis of the proximal left internal carotid artery relative to normal distal artery lumen diameter. 4. Partially visualized pulmonary nodules measuring up to 8 mm in right lower l obe, new from 01/03/2022, probably infection. Noncontrast chest CT is recommende d. 5. Multinodular goiter. Consider thyroid ultrasound for risk stratification.
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
--- NOTE | 2022-07-31 16:12 | ECG_ITS ---
Measurements Intervals [place] Rate: 65 P: 83 ND: 163 QRS: 7 QRSD: 122 T: 47 QT: 396 QTc: 414 Interpretive Statements SINUS RHYTHM INTRAVENTRICULAR CONDUCTION DELAY DELAYED PRECORDIAL R/S TRANSITION BORDERLINE ECG COMPARED TO ECG 01/15/2022 16:29:56 SINUS RHYTHM NOW PRESENT Electronically Signed On 07-31-2022 18:24:47 WASH CREW PERSON by Wang Bhagat D.O.
[2022-07-31 16:26] LABS: Basophils Percent Auto 0.4 % (0.2-1.2); Eosinophils Absolute Auto 0.9 K/mm3 (0-0.3); Eosinophils Percent Auto 8.7 % (0-4.4); Hematocrit 33.4 % (42.0-52.0); Hemoglobin 10.6 g/dL (14.0-18.0); Immature Granulocyte Absolute 0.06 K/mm3 (0.00-0.031); Immature Granulocyte Percent A 0.6 % (0-0.5); Lymphocytes Absolute Auto 1.57 K/mm3 (0.9-3.2); Lymphocytes Percent Auto 15.7 % (18.3-44.2); Mean Corpuscular HGB Conc 31.7 g/dl (32-36); Mean Corpuscular Hemoglobin 26.9 pg (26-34); Mean Corpuscular Volume 84.8 fl (80-100); Mean Platelet Volume 10.3 fl (7.4-10.4); Monocytes Absolute Auto 0.7 K/mm3 (0.1-0.6); Monocytes Percent Auto 7.1 % (2.6-8.5); Neutrophils Absolute Auto 6.8 K/mm3 (1.3-6.7); Neutrophils Percent Auto 67.5 % (45.5-73.1); Platelet Count Result 314 k/mm3 (150-375); Red Blood Count 3.94 M/mm3 (4.6-6.20); Red Cell Distribution Width 15.2 % (11.5-14.5)
[2022-07-31 16:33] LABS: INR 1.2; Prothrombin Time 14.3 Seconds (11.1-14.7)
[2022-07-31 16:34] LABS: Partial Thromboplastin Time 24.5 SECONDS (22.3-36.8)
[2022-07-31 16:44] LABS: Alanine Aminotransferase 52 U/L (6-50); Albumin Level 4.3 g/dL (3.5-5.1); Alkaline Phosphatase 430 U/L (38-126); Anion Gap 7 mmol/L (8-16); Aspartate Amino Transferase 54 U/L (17-59); Bilirubin,Total 0.8 mg/dL (0.2-1.3); Blood Urea Nitrogen 44 mg/dL (9-20); Calcium 8.2 mg/dL (8.4-10.2); Carbon Dioxide 26 mmol/L (22-30); Chloride 102 mmol/L (98-107); Estimated Glomerular Filt Rate 40; Glucose 93 mg/dL (65-110); Potassium 4.9 mmol/L (3.4-5.0); Sodium 135 mmol/L (137-145)
--- NOTE | 2022-07-31 18:51 | PC.NURSE ---
Report called to Julienne from [facility].
== END 2022-07-31 21:56 ==
PROVIDERS: Emergency Provider Emergency Medicine; PCP Internal Medicine
DX: H53.2 Diplopia (principal); H51.0 Palsy (spasm) of conjugate gaze; G82.22 Paraplegia, incomplete; S24.154S Other incomplete lesion at T11-T12 level of thoracic spinal cord, sequela; I48.91 Unspecified atrial fibrillation; D64.9 Anemia, unspecified; I13.0 Hypertensive heart and chronic kidney disease with heart failure and stage 1 through stage 4 chronic kidney disease, or unspecified chronic kidney disease; N18.9 Chronic kidney disease, unspecified; I50.9 Heart failure, unspecified; J43.9 Emphysema, unspecified; I73.9 Peripheral vascular disease, unspecified; K21.9 Gastro-esophageal reflux disease without esophagitis; E03.9 Hypothyroidism, unspecified; N31.9 Neuromuscular dysfunction of bladder, unspecified; G62.9 Polyneuropathy, unspecified; E55.9 Vitamin D deficiency, unspecified; E53.8 Deficiency of other specified B group vitamins; E61.1 Iron deficiency; Z93.3 Colostomy status; Z89.412 Acquired absence of left great toe; Z87.01 Personal history of pneumonia (recurrent); Z86.16 Personal history of COVID-19; Z87.891 Personal history of nicotine dependence; Z79.01 Long term (current) use of anticoagulants; V29.99XS Rider (driver) (passenger) of other motorcycle injured in unspecified traffic accident, sequela; I45.9 Conduction disorder, unspecified; R94.31 Abnormal electrocardiogram [ECG] [EKG]; R91.1 Solitary pulmonary nodule; E04.2 Nontoxic multinodular goiter; I65.23 Occlusion and stenosis of bilateral carotid arteries
CPT/HCPCS: 36415; 70496; 70498; 80053; 85025; 85610; 85730; 93005; 99284; Q9967

== ENCOUNTER 2022-08-07 13:12 | Inpatient (IN) | payer MEDICARE, BC, MEDICAID, SELFPAY ==
[2022-08-07] VITALS (7 sets, daily range): BP systolic 102–139; BP diastolic 47–79; PULSE 85–118; RESP 16–118; TEMP 36.9; O2SAT 93–100; BMI 41.5
--- NOTE | ~2022-08-07 | US_ITS ---
Thyroid ultrasound. Clinical History: Multinodular goiter Findings: Real-time sonography of the thyroid gland was performed. The right lobe measures 2.9 x 1.9 x 2.4 cm. The left lobe measures 3.4 x 2.2 x 2.8 cm. The isthmus is not well seen. Thyroid parenchyma is heterogeneous overall. There is a spongiform or mixed solid and cystic left thy roid lobe nodule measuring 2.5 cm in diameter. Impression: 2.5 cm spongiform left thyroid lobe nodule. No further follow-up required.. Reviewed, dictated and finalized at location . ER HAND Impression: 2.5 cm spongiform left thyroid lobe nodule. No further follow-up required..
--- NOTE | ~2022-08-07 | US_ITS ---
Renal-Bladder ultrasound Clinical History: Acute renal failure Technique: Real-time sonographic imaging of the kidneys and urinary bladder was performed. Findings: The right kidney measures 11.1 cm in length and the left kidney measures 11.8 cm. There is no hydronephrosis or renal calculus identified. Renal cortical echogenicity is within normal limits. Large left lower pole renal cyst present. The urinary bladder is collapsed around a Pereira catheter. Impression: No hydronephrosis. Large left lower pole renal cyst. Collapsed urinary bladder limits evaluation. Reviewed, dictated and finalized at location M. TAL AND ESTUARY SPECIALIST Impression: No hydronephrosis. Large left lower pole renal cyst. Collapsed urinary bladder limits evaluation.
--- NOTE | ~2022-08-07 | XR_ITS ---
XR chest 1V portable 08/16/2022 08:53 Indication: Shortness of breath Procedure: AP portable chest Comparison: 08/14 and 08/13/2022 Findings: Borderline heart size. There is airspace disease of the mid and lower lungs. Small right pl eural effusion. No pneumothorax. Impression: 1: Bilateral airspace disease of the mid and lower lungs, most likely pulmonary edema. No significant change from 08/14/2022. Reviewed, dictated and finalized at location A. ING TECH Impression: 1: Bilateral airspace disease of the mid and lower lungs, most likely pulmonary edema. No significant change from 08/14/2022.
--- NOTE | ~2022-08-07 | CT_ITS ---
EXAMINATION: CT brain wo con DATE: 08/07/2022 14:16 INDICATION: Altered mental status. Confusion. Increased weakness. TECHNIQUE: Computed tomography (CT) of the head was performed without intravenous contrast. Sagittal and coronal reconstructions were performed. The mA was adjusted according to patient size. Iterative reconstruction technique was employed. The dose-length product was 681.00 mGy-cm. COMPARISON: head CT dated 07/31/2022 FINDINGS: No acute intracranial hemorrhage, acute infarction or abnormal extra axial fluid collection. Ventricl es are normal and symmetric. No mass/mass effect. Small mucous retention cyst in the right maxillary sinus. The orbits and mastoid air cells are normal. IMPRESSION: 1. Normal brain. No acute intracranial process. Reviewed, dictated and finalized at location A. ICAL BUSINESS MANAGER
--- NOTE | ~2022-08-07 | CT_ITS ---
EXAMINATION: CT chest abdomen pelvis wo con DATE: 08/07/2022 15:37 INDICATION: Psychosis. Urinary tract infection, weakness. TECHNIQUE: Computed tomography (CT) of the chest, abdomen, and pelvis was performed without intraveno us contrast. Automated exposure control and iterative reconstruction technique were employed. The dos e-length product was 1983.35 mGy-cm. COMPARISON: None FINDINGS: CHEST CT: Mild apical predominant emphysema. Bronchial wall thickening with scattered mucous plugging in the bi lateral lower lobes suggesting bronchitis. Likely secondary mild discoid atelectasis in the bilateral lower lobes and in the right middle lobe. Calcified right middle lobe nodule and calcified right hil ar lymph nodes consistent with old granulomatous disease. No pulmonary edema, pleural effusion or pne umothorax. Mild cardiomegaly atherosclerotic coronary artery calcification is. No pericardial effusio n. Multinodular goiter. No pathologically enlarged thoracic lymphadenopathy. ABDOMEN/PELVIS CT: The bladder is nonvisualized and likely surgically absent. The common bile duct measures up to 12 mm diameter which can be seen postcholecystectomy. A few tiny hepatic and splenic calcific lesions consi stent with old granulomatous disease. Pancreas and bilateral adrenal glands are normal. A millimeter nonobstructing stone at the lower pole of the left kidney. There is an 8 cm exophytic lesion at the l ower pole of the left kidney with greater than simple fluid attenuation with curvilinear calcific loc ation along the rim and a likely internal septation which would favors a complex proteinaceous/hemorr hagic cyst over neoplasm. Atherosclerotic calcification is at the right renal hilum. No hydronephrosi s. Postoperative changes of prior subtotal colectomy with small amount of residual inspissated stool within a long Abebe's pouch and with a right lower quadrant and ileostomy. Additional small bowel a nastomosis in the right lower quadrant. Pereira catheter within the bladder which appears demonstrates mild wall thickening and inflammatory stranding surrounding fat suggestive of cystitis. Likely status post prostatectomy. No free intraperitoneal gas or fluid. No pathologically enlarged abdominal or pe lvic lymphadenopathy. There is calcified atherosclerosis of the normal caliber abdominal aorta and ma ny of the other arteries. Old healed intertrochanteric fracture of the proximal right femur with part ially visualized antegrade intramedullary jaskaran and femoral neck compression screw fixation. Bipolar ty pe left hip hemiarthroplasty. Chronic T11 compression fractures. Postoperative changes along the post erior lower thoracic and upper lumbar spine with multiple laminar wires. IMPRESSION: 1. Likely bronchitis in the lower lungs where there is wall thickening and scattered mucous plugging greatest in the left lower lobe. 2. Bladder wall thickening with surrounding inflammatory stranding consistent with cystitis. Correlat e with urinalysis. 3. Multinodular goiter. 4. Mild thyromegaly. 5. 3 mm nonobstructing left renal stone. 6. 8 cm rim calcified left renal lesion with greater than simple fluid attenuation most likely protei naceous/hemorrhagic cyst given appearance and lack of interval change since 12/25/2021. Would recommend further evaluation with pre and postcontrast MRI or CT should patient renal function improve. 7. Mild dilation of the common bile duct measuring up to 4 mm which may be related to prior cholecyst ectomy in the absence of a visible gallbladder. Correlate with clinical history and with liver functi on tests. Reviewed, dictated and finalized at location A. LATION INSTALLER IMPRESSION: 1. Likely bronchitis in the lower lungs where there is wall thickening and scat tered mucous plugging alvarez
--- NOTE | ~2022-08-07 | XR_ITS ---
EXAMINATION: XR chest 2V Exam Date/Time: 08/13/2022 19:50 KNIFE SETTER GRINDER MACHINE HISTORY: sob Comparison: 08/07/2022. RESULT: Lines, tubes, and devices: Lower sternal cerclage wires. Lungs and pleura: Diffuse mid and lower lung reticular opacities with indistinct vessels. Mild bilat eral costophrenic angle blunting Cardiomediastinal silhouette: Stable. Other: No acute osseous or upper abdominal finding. IMPRESSION: Pulmonary edema with small bilateral effusions. Infection is not excluded. Reviewed, dictated and finalized at location K. E SETTER GRINDER MACHINE
--- NOTE | ~2022-08-07 | US_ITS ---
Duplex Sonography of the bilateral lower extremities: Indication: Swelling Sagittal and transverse B-mode images as well as color-flow imaging were performed on the right and l eft femoral and popliteal veins. B-mode examination was done without and with compression in the tra nsverse plane. There is somewhat limited visualization of the bilateral common femoral, proximal pro laurita femoral, superficial femoral, greater saphenous, and popliteal veins, related to patient body h abitus. Normal flow was seen on color-flow imaging. Normal compressibility was demonstrated. Visualized calf veins also appear patent. Impression: No evidence of deep vein thrombosis involving either lower extremity. Reviewed, dictated and finalized at location M. P CRANE OPERATOR Impression: No evidence of deep vein thrombosis involving either lower extremit y.
--- NOTE | ~2022-08-07 | XR_ITS ---
XR chest 1V portable 08/14/2022 14:41 Indication: Shortness of breath Procedure: AP portable chest Comparison: Comparison to multiple prior studies sequentially, with oldest reviewed study dated 01/16. Findings: There is worsening bilateral airspace disease, likely edema. No significant effusion. No pn eumothorax. Cardiomegaly. No acute osseous abnormality. Impression: 1: Worsening pulmonary edema. Reviewed, dictated and finalized at location A. ECT BIND MACHINE OPERATOR Impression: 1: Worsening pulmonary edema.
--- NOTE | ~2022-08-07 | XR_ITS ---
XR chest 1V DATE: 08/07/2022 14:20 INDICATION: Weakness. Recent shortness of breath TECHNIQUE: AP chest COMPARISON: 01/17/2022 portable AP chest FINDINGS: Mild chronic stable thin linear discoid scarring at the left lower lung, unchanged since 01/17/2022. No pulmonary infiltrate or consolidation, pleural effusion or pulmonary vascular congestion o r pneumothorax is detected. Normal heart size. Aortic arch calcification. No hilar or mediastinal enlargement. IMPRESSION: No active cardiopulmonary disease Aortic atherosclerosis Reviewed, dictated and finalized at location L. S OFFICER
--- NOTE | 2022-08-07 13:18 | ECG_ITS ---
Measurements Intervals [place] Rate: 83 P: 93 NM: 178 QRS: 20 QRSD: 102 T: 53 QT: 338 QTc: 399 Interpretive Statements SINUS RHYTHM ATRIAL PREMATURE COMPLEX LOW QRS VOLTAGE IN PRECORDIAL LEADS BORDERLINE R WAVE PROGRESSION, ANTERIOR LEADS BORDERLINE ST-T WAVE ABNORMALITY- HIGH LATERAL LEADS BASELINE ARTIFACT- I, II, III, AVR, AVL, AVF, V1-V2 BORDERLINE ECG COMPARED TO ECG 07/31/2022 16:28:53 NO SIGNIFICANT CHANGES Electronically Signed On 08-07-2022 14:40:16 TRUST EVALUATION SUPERVISOR by Wang Bhagat D.O.
--- NOTE | 2022-08-07 14:10 | PC.NURSE ---
Pt in CT scan at this time.
[2022-08-07 14:40] LABS: Basophils Percent Auto 0.2 % (0.2-1.2); Eosinophils Absolute Auto 2.5 K/mm3 (0-0.3); Eosinophils Percent Auto 9.7 % (0-4.4); Hematocrit 40.9 % (42.0-52.0); Hemoglobin 13.1 g/dL (14.0-18.0); Immature Granulocyte Absolute 0.23 K/mm3 (0.00-0.031); Immature Granulocyte Percent A 0.9 % (0-0.5); Lymphocytes Absolute Auto 1.75 K/mm3 (0.9-3.2); Lymphocytes Percent Auto 6.7 % (18.3-44.2); Mean Corpuscular Hemoglobin 26.6 pg (26-34); Mean Platelet Volume 9.9 fl (7.4-10.4); Monocytes Absolute Auto 1.3 K/mm3 (0.1-0.6); Neutrophils Absolute Auto 20.2 K/mm3 (1.3-6.7); Neutrophils Percent Auto 77.5 % (45.5-73.1); Platelet Count Result 330 k/mm3 (150-375); Red Blood Count 4.93 M/mm3 (4.6-6.20); Red Cell Distribution Width 15.9 % (11.5-14.5)
[2022-08-07 14:40] LABS: Appearance Urine Cloudy (Clear); Bilirubin Urine Negative (Negative); Blood Urine 3+ (Negative); Color Urine Yellow (Yellow); Glucose Urine UA Negative (Negative); Ketones Urine Trace mg/dL (Negative); Leukocyte Esterase Ur 3+ LEU/UL (Negative); Nitrate Urine Negative (Negative); Protein Urine 2+ mg/dL (Negative); Specific Grav Ur 1.025 (1.001-1.035); Urobilinogen Urine 0.2 mg/dL (<2.0)
[2022-08-07 14:45] LABS: Bacteria Urine 4+ /hpf; Mucus Urine Rare /lpf; RBC Urine >75 /hpf (0-2); Squamous Epithelial Cell Urine Occasional /hpf (Few); WBC Clumps Urine Present /HPF; WBC Urine >75 /hpf
[2022-08-07 14:48] LABS: Add Urine Microscopic? YES
[2022-08-07 14:53] LABS: Alanine Aminotransferase 24 U/L (6-50); Albumin Level 3.7 g/dL (3.5-5.1); Alkaline Phosphatase 234 U/L (38-126); Anion Gap 8 mmol/L (8-16); Aspartate Amino Transferase 25 U/L (17-59); Bilirubin,Total 0.7 mg/dL (0.2-1.3); Blood Urea Nitrogen 76 mg/dL (9-20); Carbon Dioxide 25 mmol/L (22-30); Chloride 101 mmol/L (98-107); Estimated CRCL calculation 24 ml/min; Estimated Glomerular Filt Rate 15; Glucose 112 mg/dL (65-110); Potassium 5.3 mmol/L (3.4-5.0); Sodium 134 mmol/L (137-145)
[2022-08-07 14:59] LABS: NT Pro B Type Natriuretic Pept 1400 pg/mL (19.9-100)
[2022-08-07 16:11] LABS: Free T4 Free Thyroxine Reflex 1.02 ng/dL (0.78-2.19)
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
[2022-08-07] MEDS: levoFLOXacin 500 MG/D5W 100 ML 500 MG/100 ML BAG 100 MG IVPB (16:31)
[2022-08-07 17:14] LABS: Total Triiodothyronine (T3) 0.84 NG/ML (0.97-1.69)
[2022-08-07 18:18] LABS: Influenza A QL RT-PCR Negative (Negative); Influenza B QL RT-PCR Negative (Negative); SARS-CoV-2 RNA PCR Negative
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
--- NOTE | 2022-08-07 19:49 | ADMGEN ---
This patient, Bob Simmons, was admitted to [facility] Room 317-02. Patient/family oriented to hospital policies and general routines including ID bracelet, bed and alarms, visiting hours, pain management, procedures, bathroom and other care routines, personal items, smoking policy, room service/diet, and visiting hours. Information on how to activate the Rapid Response Team has been discussed. Patient/Family are encouraged to report perceived risks to care and to ask questions if they do not understand what they are told or what they should do.
[2022-08-08] VITALS (7 sets, daily range): BP systolic 103–128; BP diastolic 61–85; PULSE 65–105; RESP 16–20; TEMP 36.6–36.8; O2SAT 92–95
[2022-08-08 03:18] LABS: Basophils Percent Auto 0.2 % (0.2-1.2); Eosinophils Absolute Auto 2.4 K/mm3 (0-0.3); Eosinophils Percent Auto 9.8 % (0-4.4); Hematocrit 36.4 % (42.0-52.0); Hemoglobin 11.6 g/dL (14.0-18.0); Immature Granulocyte Absolute 0.16 K/mm3 (0.00-0.031); Immature Granulocyte Percent A 0.7 % (0-0.5); Lymphocytes Absolute Auto 2.08 K/mm3 (0.9-3.2); Lymphocytes Percent Auto 8.5 % (18.3-44.2); Mean Corpuscular HGB Conc 31.9 g/dl (32-36); Mean Corpuscular Hemoglobin 26.4 pg (26-34); Mean Corpuscular Volume 82.7 fl (80-100); Mean Platelet Volume 9.9 fl (7.4-10.4); Monocytes Absolute Auto 1.3 K/mm3 (0.1-0.6); Monocytes Percent Auto 5.4 % (2.6-8.5); Neutrophils Absolute Auto 18.4 K/mm3 (1.3-6.7); Neutrophils Percent Auto 75.4 % (45.5-73.1); Platelet Count Result 309 k/mm3 (150-375); Red Cell Distribution Width 15.6 % (11.5-14.5); White Blood Count 24.4 K/mm3 (4.5-10.0)
[2022-08-08 03:40] LABS: Alanine Aminotransferase 22 U/L (6-50); Albumin Level 3.2 g/dL (3.5-5.1); Alkaline Phosphatase 202 U/L (38-126); Anion Gap 8 mmol/L (8-16); Aspartate Amino Transferase 21 U/L (17-59); Bilirubin,Total 0.6 mg/dL (0.2-1.3); Blood Urea Nitrogen 81 mg/dL (9-20); Calcium 7.7 mg/dL (8.4-10.2); Carbon Dioxide 23 mmol/L (22-30); Chloride 100 mmol/L (98-107); Estimated CRCL calculation 24 ml/min; Estimated Glomerular Filt Rate 15; Glucose 104 mg/dL (65-110); Potassium 5.8 mmol/L (3.4-5.0); Sodium 131 mmol/L (137-145)
[2022-08-08 03:42] LABS: Lactic Acid Reflex 1.1 mmol/L (0.7-2.0)
[2022-08-08 03:46] LABS: Complement C3 110 mg/dL (88-165)
[2022-08-08 03:58] LABS: Alanine Aminotransferase 22 U/L (6-50); Albumin Level 3.2 g/dL (3.5-5.1); Alkaline Phosphatase 204 U/L (38-126); Anion Gap 9 mmol/L (8-16); Aspartate Amino Transferase 23 U/L (17-59); Bilirubin,Total 0.6 mg/dL (0.2-1.3); Blood Urea Nitrogen 81 mg/dL (9-20); CRP 6.5 mg/dL (<1.0); Calcium 7.8 mg/dL (8.4-10.2); Carbon Dioxide 23 mmol/L (22-30); Chloride 100 mmol/L (98-107); Creatine Kinase 75 U/L (55-170); Estimated CRCL calculation 24 ml/min; Estimated Glomerular Filt Rate 15; Glucose 104 mg/dL (65-110); Magnesium 1.3 mg/dL (1.6-2.3); Phosphorus 5.4 mg/dL (2.5-4.5); Sodium 132 mmol/L (137-145)
[2022-08-08 04:01] LABS: Erythrocyte Sedimentation Rate 50 mm/hr (0-20)
[2022-08-08] MEDS: levoFLOXacin 250 MG/D5W 50 ML 250 MG/50 ML BAG 50 MG IVPB (04:03)
[2022-08-08 04:15] LABS: Anisocytosis 2+ (NORMAL); Hypochromasia 2+ (NORMAL); Platelet Estimate Increased (Adequate)
[2022-08-08 04:16] LABS: Schistocytes None Seen (NORMAL); Tear Drop Cells 1+ (NORMAL)
[2022-08-08 04:20] LABS: HIV 1/2 Ab P24 Ag Result Negative (Negative)
--- NOTE | 2022-08-08 04:21 | ECG_ITS ---
Measurements Intervals [place] Rate: 89 P: 60 AK: 165 QRS: 13 QRSD: 118 T: 53 QT: 344 QTc: 419 Interpretive Statements SINUS RHYTHM INTRAVENTRICULAR CONDUCTION DELAY DELAYED PRECORDIAL R/S TRANSITION CONSIDER INFERIOR INFARCT, AGE INDETERMINATE BORDERLINE ST-T WAVE ABNORMALITY- HIGH LATERAL LEADS ABNORMAL ECG COMPARED TO ECG 08/07/2022 13:13:36 INTRAVENTRICULAR CONDUCTION DELAY NOW PRESENT Electronically Signed On 08-08-2022 7:47:10 MOLDING PRESS OPERATOR by Wang Bhagat D.O.
--- NOTE | 2022-08-08 04:23 | P.PNCROSS_ITS ---
Event Note Event Note Event Note: 08/08/2022 at 04:10 nursing staff. Me to notify me the patient's potassium was 6.0. Nursing staff told me the patient was admitted for UTI when I reviewed the patient's chart the patient's urine had not yet been collected but the patient did have a white count and the patient's bladder appeared consistent with UTI on imaging. The patient's urine had not been collected cancer patient had essentially no urine output if his Pereira catheter. When I reviewed the chart it appears that the patient did not actually receive any IV fluids in the ER. The patient has acute renal failure on chronic kidney disease with BUN up from baseline of 44 up to 81 and creatinine up from a baseline of 1.7 up to4.0. The patient was started on Levaquin for presumed UTI given his prior culture results consistent with Pseudomonas that was resistant to cephalosporins. Unfortunately the patient's home Lasix and diclofenac were also continued. The patient was tachycardic and tachypnic with a white count of 26 and meet sepsis criteria. Blood cultures and urine cultures are pending. The patient's past echo was reviewed from December of 2021 the patient had grade 1 diastolic dysfunction. The patient is on Lasix at home . The patient's BNP is actually 1/3 of his baseline. His hemoglobin is consistent with hemoconcentration as well. Patient's clinical picture is most consistent with volume depletion and profound dehydration. At this time I have ordered 2 L normal saline bolus followed by maintenance fluids at 100 mg an hour. The patient is not on telemetry as we do not have a residential monitor available. I have ordered a stat EKG to rule out peaked T-waves or evidence of cardiac arrhythmia Given the patient's hyperkalemia. I have stopped the patient's NSAIDs and Lasix. The patient is receiving renally dosed Levaquin. I will hold off on giving the patient any bic arb, insulin or calcium at this time will try IV fluid hydration to correct his hyperkalemia and less EKG demonstrates unstable rhythm. 30 minutes was spent in chart review and discussions patient's care with nursing staff.
[2022-08-08 04:32] LABS: Hepatitis B Surface Antigen Negative (Negative)
[2022-08-08] MEDS: LEVOTHYROXINE SODIUM 12.5 MCG TABLET PO (05:38)
[2022-08-08] MEDS: dilTIAZem HCL 30 MG TABLET PO ×3 (05:38→21:02)
[2022-08-08] MEDS: SODIUM CHLORIDE 0.9% IV 1,000 ML 999 ML IV CONT ×2 (05:40)
[2022-08-08 05:58] LABS: Hepatitis B Core IgM Result Negative (Negative)
[2022-08-08 06:06] LABS: Hepatitis B Surface Anti Res Negative
[2022-08-08] MEDS: SODIUM CHLORIDE 0.9% IV 1,000 ML 100 ML IV CONT ×2 (06:31→21:00)
[2022-08-08] MEDS: MAGNESIUM SULF 2 GM/WATER 50ML 2 GM/50 ML BAG IVPB (09:11)
[2022-08-08] MEDS: APIXABAN 2.5 MG TABLET PO ×2 (09:13→21:02)
[2022-08-08] MEDS: BACLOFEN 10 MG TABLET PO ×2 (09:13→17:45)
[2022-08-08] MEDS: ATORVASTATIN 10 MG TABLET PO (09:13)
[2022-08-08] MEDS: CYANOCOBALAMIN 1,000 MCG TABLET 1000 MCG PO (09:13)
[2022-08-08] MEDS: UMECLIDINIUM/VILANTEROL 62.5-25 MCG ELLIPTA 1 PUFF INHALATION (09:14)
[2022-08-08] MEDS: BUDESONIDE RESPULE NEB 0.5 MG/2 ML AMP INHALATION (09:14)
[2022-08-08] MEDS: ALBUTEROL SULFATE NEB 2.5 MG/3 ML INH INHALATION ×2 (09:14→20:44)
[2022-08-08] MEDS: MAGNESIUM OXIDE 400 MG TABLET PO (09:19)
[2022-08-08] MEDS: FLUTICASONE PROPIONATE 0.05% NA SPR 16 GM BTL (*BKC) 1 SPRAY NASAL (09:19)
[2022-08-08] MEDS: FERROUS SULFATE 324 MG TABLET PO (09:19)
[2022-08-08] MEDS: guaiFENesin 12 HR 600 MG TABCR PO ×2 (09:19→21:02)
[2022-08-08] MEDS: PANTOPRAZOLE 40 MG TABLET PO (09:20)
[2022-08-08] MEDS: EUCERIN CREAM 120 GM JAR 1 APPLIC TOPICAL (09:20)
[2022-08-08] MEDS: MONTELUKAST SODIUM 10 MG TABLET PO (09:20)
[2022-08-08 09:24] LABS: Anion Gap 5 mmol/L (8-16); Blood Urea Nitrogen 79 mg/dL (9-20); Calcium 7.1 mg/dL (8.4-10.2); Carbon Dioxide 21 mmol/L (22-30); Chloride 102 mmol/L (98-107); Estimated CRCL calculation 25 ml/min; Estimated Glomerular Filt Rate 16; Glucose 137 mg/dL (65-110); Sodium 128 mmol/L (137-145)
[2022-08-08] MEDS: PREGABALIN (*CRX) 75 MG CAPSULE PO ×2 (09:25→17:43)
[2022-08-08 09:29] LABS: Appearance Urine Cloudy (Clear); Bilirubin Urine Negative (Negative); Blood Urine 3+ (Negative); Color Urine Yellow (Yellow); Glucose Urine UA Negative (Negative); Ketones Urine Negative (Negative); Leukocyte Esterase Ur 3+ LEU/UL (NEGATIVE); Nitrate Urine Negative (Negative); Protein Urine 3+ mg/dL (Negative); Specific Grav Ur >= 1.030 (1.001-1.035); Urobilinogen Urine 0.2 mg/dL (<2.0); pH Urine 5.5 (5.0-9.0)
[2022-08-08 09:37] LABS: Mucus Urine Few /lpf; RBC Urine 21-50 /hpf (0-2); WBC Clumps Urine Present /HPF; WBC Urine >75 /hpf (0-3)
[2022-08-08 09:38] LABS: Add Urine Microscopic? YES
[2022-08-08 09:59] LABS: Eosinophil Urine None Seen % (None Seen)
--- NOTE | 2022-08-08 11:38 | PC.NURSE ---
Daughter called for an update. Update provided by press writer.
[2022-08-08 12:17] LABS: Creatinine Urine 193.7 mg/dL; Total Protein Urine Random 193 mg/dL
[2022-08-08 12:31] LABS: Sodium Urine Random 14 meq/L
--- NOTE | 2022-08-08 13:39 | PM.IMPN ---
Progress Note: A&P Assessment and Plan (1) Acute on chronic renal failure: Qualifiers: Acute renal failure type: with acute tubular necrosis Chronic kidney disease stage: stage 3 (moderate) Chronic kidney disease stage 3 subtype: unspecified whether 3a or 3b Qualified Code(s): N17.0 - Acute kidney failure with tubular necrosis; N18.30 - Chronic kidney disease, stage 3 unspecified Code(s): N17.9 - Acute kidney failure, unspecified; N18.9 - Chronic kidney disease, unspecified Status: Acute Assessment and Plan: Creatinine 3.9 and up to 4.0. His baseline is anywhere from 1.7 - 2.1. -Cr better at 3.7. -Hyperkalemia and mild metaolic acidosis noted. -suspect AIN with systemic eosinophilia possibly from medications? Usually PCN, Cephalosporin or NSAIDs -not on allopurinol. -consider neoplasm, adrenal insufficiency or allergic disorders as well. (2) UTI (urinary tract infection) due to urinary indwelling catheter: Code(s): T83.511A - Infection and inflammatory reaction due to indwelling urethral catheter, initial encounter; N39.0 - Urinary tract infection, site not specified Status: Acute Assessment and Plan: UA noted and concerning for UTI -the patient has had a history of Pseudomonas approximately 6 months ago. -He does have chronic indwelling Leblanc catheter. -Levaquin was started is it is sensitive to Pseudomonas. -BCx NGTD. UCx pending -leukocytosis with white count of 26; better today. (3) Hypertension: Qualifiers: Hypertension type: unspecified Qualified Code(s): I10 - Essential (primary) hypertension Code(s): I10 - Essential (primary) hypertension Status: Chronic Assessment and Plan: Patient's blood pressure was reviewed on 08/08 Blood pressure remains well controlled. Will continue current medications. (4) Chronic obstructive pulmonary disease: Code(s): J44.9 - Chronic obstructive pulmonary disease, unspecified Status: Acute Assessment and Plan: No wheezing. Remains on room air -continue with albuterol. -continue Anoro Ellipta (5) CHF (congestive heart failure): Code(s): I50.9 - Heart failure, unspecified Status: Acute Assessment and Plan: Hx of CHF. Echo in December showing EF 5-60% with Grade I diastolic dysfunction. -Lasix on hold (6) Atrial fibrillation: Code(s): I48.91 - Unspecified atrial fibrillation Status: Acute Assessment and Plan: Patient with hx of AFib. EKG showing normal sinus rhythm -continue with Eliquis -continue with diltiazem for rate control (7) Anemia: Code(s): D64.9 - Anemia, unspecified Status: Acute Assessment and Plan: -patient's blood count is higher than normal. However the patient may be dehydrated. -follow (8) Hypothyroid: Code(s): E03.9 - Hypothyroidism, unspecified Status: Acute Assessment and Plan: TSH noted. Continue with levothyroxine. (9) Renal mass: Code(s): N28.89 - Other specified disorders of kidney and ureter Status: Acute Assessment and Plan: 6.8cm rim calcified left renal lesion likely proteinaceous/hemorrhagic cyst. No change since 12/25/2021. Unable to do an MRI or CT with contrast at this time due to renal failure. Can be further evaluate as outpatient Subjective Date/time seen: 08/08/22 13:39 Interval history: 71yo male with AFib, CHF, HTN, CKD and chronic indwelling Leblanc here for fatigue. Patient slept poorly last night. No nausea or vomiting. He denies back pain or abdominal pain. Eating okay. Does have a chronic Leblanc catheter for past 3 years. He has noted decreased urine output recently. He has also noted a diffuse rash on his skin that is not pruritic. Patient currently resides in a [facility]. The staff will clean his body with a spray which he states was changed to a different brand recently. Exam Narrative:
--- NOTE | 2022-08-08 15:10 | PM.CNNEP ---
Assessment and Plan Assessment and plan (1) OLIVER (acute kidney injury): Code(s): N17.9 - Acute kidney failure, unspecified Status: Acute Assessment and Plan: presumably due to acute infection/UTI however, AIN may be strong possibility: diffuse rash peripheral eosinophilia (worse currently but present for the last 6 months) consider trial of steroids if renal function fails to improve with current interventions follow repeat labs and UOP (2) Chronic kidney disease, stage 3: Qualifiers: Chronic kidney disease stage 3 subtype: stage 3b (GFR 30-44) Qualified Code(s): N18.32 - Chronic kidney disease, stage 3b Code(s): N18.30 - Chronic kidney disease, stage 3 unspecified Status: Chronic Assessment and Plan: creatinine had been running ~ 1.7 - 2.1mg/d (but has been as high as 2.3mg/dl)l this would cause him to CKD stage 3b probably from his HTN, vascular disease, and age (3) Acute UTI: Code(s): N39.0 - Urinary tract infection, site not specified Status: Acute Assessment and Plan: follow culture data on IV antibiotics (4) Hypertension: Qualifiers: Hypertension type: unspecified Qualified Code(s): I10 - Essential (primary) hypertension Code(s): I10 - Essential (primary) hypertension Status: Chronic Assessment and Plan: reasonable control follow trend of hemodynamics (5) CHF (congestive heart failure): Code(s): I50.9 - Heart failure, unspecified Status: Chronic Assessment and Plan: appears compensated diuretics on hold due to #1 follow respiratory status Long extensive discussion (greater than 20 min) with the patient as well as his daughter at bedside regarding his renal dysfunction, his recurrent admissions for acute kidney injury on top of his baseline kidney disease, and his chronic kidney disease in general. His daughter is concerned that these recurrent bouts of OLIVER may cause a irreparable damage to his kidneys. Unfortunately, her concern is valid but hopefully with ongoing intervention/therapys, his renal function will return to its previous baseline. Will continue to follow. History of Present Illness Reason for Consult Consult date: 08/08/22 Reason for consult: acute renal failure (on chronic kidney disease) Chief Complaint Chief complaint: UTI, AMS History of Present Illness Narrative: The patient is a 71-year-old man with a past medical history as outlined below who [facility] room from his nursing facility due to weakness, confusion, and lethargy. Due the above symptoms, his nursing facility symptoms to the ER for further assessment. Apparently, a week ago, the patient was doing reasonably well but in that time frame he apparently has developed the a for mentioned symptoms. No reported fevers, chills, nausea, vomiting, or diarrhea or any other subjective symptoms at this time. Workup and evaluation emergency room demonstrated the patient be hemodynamically stable but routine blood test demonstrated elevated white blood cell count of 26, normal H&H, a and a BUN and creatinine above his baseline. His urinalysis was highly suggestive of urinary tract infection although this is further complicated by the fact that he has an indwelling Pereira catheter. Influenza a/B as well as COVID-19 testing were negative and given his urinalysis findings, he did have a CT scan of the abdomen pelvis which demonstrated likely bronchiectasis in the lower lungs, bladder wall thickening and surrounding inflammatory stranding consistent with cystitis, and a 3 mm nonobstructing left renal stone. After appropriate cultures were obtained, he was started on IV antibiotic therapy and subsequent minute the hospital for further evaluation and therapy. Renal consultation was requested due to his acute kidney injury on top of his baseline kidney disease. The patient is
[2022-08-08] MEDS: GABAPENTIN 100 MG CAPSULE 200 MG PO (17:45)
[2022-08-08] MEDS: IPRATROPIUM BR 0.02% INH SOLN 0.5 MG/2.5 ML VIAL INHALATION (20:44)
[2022-08-08] MEDS: LORATADINE 10 MG TABLET PO (21:02)
[2022-08-08] MEDS: MELATONIN 5 MG TABLET PO (21:06)
[2022-08-09] VITALS (9 sets, daily range): BP systolic 108–119; BP diastolic 48–52; PULSE 72–89; RESP 18–20; TEMP 36.1–36.6; O2SAT 92–99
[2022-08-09] MEDS: dilTIAZem HCL 30 MG TABLET PO ×3 (06:01→22:02)
[2022-08-09] MEDS: SODIUM CHLORIDE 0.9% IV 1,000 ML 100 ML IV CONT ×2 (06:01→16:59)
[2022-08-09] MEDS: LEVOTHYROXINE SODIUM 12.5 MCG TABLET PO (06:01)
[2022-08-09 06:32] LABS: Basophils Absolute Auto 0.1 K/mm3 (0.0-0.1); Basophils Percent Auto 0.3 % (0.2-1.2); Eosinophils Absolute Auto 2.8 K/mm3 (0-0.3); Eosinophils Percent Auto 15.4 % (0-4.4); Hematocrit 33.1 % (42.0-52.0); Hemoglobin 10.6 g/dL (14.0-18.0); Immature Granulocyte Percent A 0.6 % (0-0.5); Lymphocytes Absolute Auto 2.87 K/mm3 (0.9-3.2); Lymphocytes Percent Auto 15.9 % (18.3-44.2); Mean Corpuscular Hemoglobin 26.6 pg (26-34); Mean Corpuscular Volume 83.2 fl (80-100); Monocytes Absolute Auto 1.1 K/mm3 (0.1-0.6); Monocytes Percent Auto 5.8 % (2.6-8.5); Neutrophils Absolute Auto 11.2 K/mm3 (1.3-6.7); Platelet Count Result 254 k/mm3 (150-375); Red Blood Count 3.98 M/mm3 (4.6-6.20); Red Cell Distribution Width 15.9 % (11.5-14.5)
[2022-08-09 06:55] LABS: Alanine Aminotransferase 17 U/L (6-50); Albumin Level 2.8 g/dL (3.5-5.1); Alkaline Phosphatase 154 U/L (38-126); Anion Gap 7 mmol/L (8-16); Aspartate Amino Transferase 16 U/L (17-59); Bilirubin,Total 0.5 mg/dL (0.2-1.3); Blood Urea Nitrogen 78 mg/dL (9-20); Calcium 6.9 mg/dL (8.4-10.2); Carbon Dioxide 20 mmol/L (22-30); Chloride 101 mmol/L (98-107); Estimated CRCL calculation 26 ml/min; Estimated Glomerular Filt Rate 17; Glucose 97 mg/dL (65-110); Magnesium 1.6 mg/dL (1.6-2.3); Phosphorus 4.8 mg/dL (2.5-4.5); Potassium 4.8 mmol/L (3.4-5.0); Sodium 128 mmol/L (137-145)
[2022-08-09] MEDS: UMECLIDINIUM/VILANTEROL 62.5-25 MCG ELLIPTA 1 PUFF INHALATION (08:17)
[2022-08-09] MEDS: ALBUTEROL SULFATE NEB 2.5 MG/3 ML INH INHALATION ×2 (08:17→20:25)
[2022-08-09] MEDS: BUDESONIDE RESPULE NEB 0.5 MG/2 ML AMP INHALATION ×2 (08:17→20:25)
[2022-08-09] MEDS: MAGNESIUM OXIDE 400 MG TABLET PO (08:35)
[2022-08-09] MEDS: guaiFENesin 12 HR 600 MG TABCR PO ×2 (08:35→22:02)
[2022-08-09] MEDS: ATORVASTATIN 10 MG TABLET PO (08:35)
[2022-08-09] MEDS: FERROUS SULFATE 324 MG TABLET PO (08:35)
[2022-08-09] MEDS: BACLOFEN 10 MG TABLET PO ×2 (08:36→17:00)
[2022-08-09] MEDS: PREGABALIN (*CRX) 75 MG CAPSULE PO ×2 (08:36→17:00)
[2022-08-09] MEDS: CYANOCOBALAMIN 1,000 MCG TABLET 1000 MCG PO (08:36)
[2022-08-09] MEDS: PANTOPRAZOLE 40 MG TABLET PO (08:36)
[2022-08-09] MEDS: EUCERIN CREAM 120 GM JAR 1 APPLIC TOPICAL (08:36)
[2022-08-09] MEDS: FLUTICASONE PROPIONATE 0.05% NA SPR 16 GM BTL (*BKC) 1 SPRAY NASAL (08:36)
[2022-08-09] MEDS: APIXABAN 2.5 MG TABLET PO ×2 (08:36→22:02)
--- NOTE | 2022-08-09 10:44 | PCSTNOTE ---
Please refer to the Bedside Swallow Evaluation in the EMR. Please note, silent aspiration cannot be ruled out at bedside.
[2022-08-09] MEDS: ERTAPENEM SODIUM 0.5 GM in SODIUM CHLORIDE 0.9% IV 50 ML IVPB (12:03)
--- NOTE | 2022-08-09 12:12 | P.PNNP_ITS ---
Progress Note: A&P Assessment and Plan (1) OLIVER (acute kidney injury): Code(s): N17.9 - Acute kidney failure, unspecified Status: Acute Assessment and Plan: * presumably due to acute infection/UTI * however, AIN may be strong possibility: * diffuse rash * peripheral eosinophilia (worse currently but present for the last 6 months) * etiology? * consider trial of steroids if renal function fails to improve with current interventions * follow repeat labs and UOP (2) Chronic kidney disease, stage 3: Qualifiers: Chronic kidney disease stage 3 subtype: stage 3b (GFR 30-44) Qualified Code(s): N18.32 - Chronic kidney disease, stage 3b Code(s): N18.30 - Chronic kidney disease, stage 3 unspecified Status: Chronic Assessment and Plan: * creatinine had been running ~ 1.7 - 2.2mg/d * this would cause him to CKD stage 3b * probably from his HTN, vascular disease, and age (3) Acute UTI: Code(s): N39.0 - Urinary tract infection, site not specified Status: Acute Assessment and Plan: * culture with E.coli (ESBL) * on IV antibiotics * WBC improving (4) Hypertension: Qualifiers: Hypertension type: unspecified Qualified Code(s): I10 - Essential (primary) hypertension Code(s): I10 - Essential (primary) hypertension Status: Chronic Assessment and Plan: * reasonable control * follow trend of hemodynamics (5) CHF (congestive heart failure): Code(s): I50.9 - Heart failure, unspecified Status: Chronic Assessment and Plan: * appears compensated * diuretics on hold due to #1 * follow respiratory status Will continue to follow. Subjective Date/time seen: 08/09/22 12:12 No apparent distress voiced at the time of my visit; no issues or problems overnight or earlier this morning; no apparent distress to report when seen today. Exam Narrative: General: Large male in NAD Heart: IRRR, normal S1 and S2; no rub Lungs: clear to auscultation Abdomen: soft, nontender, nondistended, positive bowel sounds; + colostomy Extremities: no cyanosis or clubbing; 1+ edema Skin: diffuse rash present Objective Data Vital Signs Vital Signs: Vital Signs Temp Pulse Resp BP Pulse Ox O2 Del Method 08/09/22 08:50 Room Air 08/09/22 08:34 72 18 01/21/23 08:20 95 Room Air 08/09/22 08:19 85 18 08/09/22 05:53 97.9 F 82 20 109/52 L 94 08/08/22 20:00 Room Air 08/08/22 20:58 84 18 08/08/22 20:43 88 18 08/08/22 20:43 65 94 Room Air 08/08/22 20:36 97.9 F 87 20 103/61 92 Intake/Output Intake/Output: Intake & Output 08/06/22 08/07/22 08/08/22 08/09/22 23:59 23:59 23:59 23:59 Intake Total 100 2480 2410 Output Total 1495 325 Balance 921 703 6319 Meds/Results Medications: Active Medications Generic Name Dose Route Start Last Admin Trade Name Freq PRN Reason Stop Dose Admin Acetaminophen 650 mg 08/08/22 01:54 Acetaminophen 325 Mg Tablet PO Q6-8H PRN Pain Rated 1-3 Albuterol 2.5 mg 08/08/22 08:00 08/09/22 08:17
--- NOTE | 2022-08-09 12:12 | PM.PNNEP ---
Progress Note: A&P Assessment and Plan (1) OLIVER (acute kidney injury): Code(s): N17.9 - Acute kidney failure, unspecified Status: Acute Assessment and Plan: presumably due to acute infection/UTI however, AIN may be strong possibility: diffuse rash peripheral eosinophilia (worse currently but present for the last 6 months) etiology? consider trial of steroids if renal function fails to improve with current interventions follow repeat labs and UOP (2) Chronic kidney disease, stage 3: Qualifiers: Chronic kidney disease stage 3 subtype: stage 3b (GFR 30-44) Qualified Code(s): N18.32 - Chronic kidney disease, stage 3b Code(s): N18.30 - Chronic kidney disease, stage 3 unspecified Status: Chronic Assessment and Plan: creatinine had been running ~ 1.7 - 2.2mg/d this would cause him to CKD stage 3b probably from his HTN, vascular disease, and age (3) Acute UTI: Code(s): N39.0 - Urinary tract infection, site not specified Status: Acute Assessment and Plan: culture with E.coli (ESBL) on IV antibiotics WBC improving (4) Hypertension: Qualifiers: Hypertension type: unspecified Qualified Code(s): I10 - Essential (primary) hypertension Code(s): I10 - Essential (primary) hypertension Status: Chronic Assessment and Plan: reasonable control follow trend of hemodynamics (5) CHF (congestive heart failure): Code(s): I50.9 - Heart failure, unspecified Status: Chronic Assessment and Plan: appears compensated diuretics on hold due to #1 follow respiratory status Will continue to follow. Subjective Date/time seen: 08/09/22 12:12 No apparent distress voiced at the time of my visit; no issues or problems overnight or earlier this morning; no apparent distress to report when seen today. Exam Narrative: General: Large male in NAD Heart: IRRR, normal S1 and S2; no rub Lungs: clear to auscultation Abdomen: soft, nontender, nondistended, positive bowel sounds; + colostomy Extremities: no cyanosis or clubbing; 1+ edema Skin: diffuse rash present Objective Data Vital Signs Vital Signs: Vital Signs Temp Pulse Resp BP Pulse Ox O2 Del Method 08/09/22 08:50 Room Air 08/09/22 08:34 72 18 08/09/22 08:20 95 Room Air 08/09/22 08:19 85 18 08/09/22 05:53 97.9 F 82 20 109/52 L 94 08/08/22 20:00 Room Air 08/08/22 20:58 84 18 08/08/22 20:43 88 18 08/08/22 20:43 65 94 Room Air 08/08/22 20:36 97.9 F 87 20 103/61 92 Intake/Output Intake/Output: Intake & Output 08/06/22 08/07/22 08/08/22 08/09/22 23:59 23:59 23:59 23:59 Intake Total 100 2480 2410 Output Total 1495 325 Balance 885 422 0868 Meds/Results Medications: Active Medications Generic Name Dose Route Start Last Admin Trade Name Freq PRN Reason Stop Dose Admin Acetaminophen 650 mg 08/08/22 01:54 Acetaminophen 325 Mg Tablet PO Q6-8H PRN Pain Rated 1-3 Albuterol 2.5 mg 08/08/22 08:00 08/09/22 08:17 Albuterol Sulfate Neb 2.5 Mg/3 Ml Inh INHALATION 2.5 mg Q12HRT [facility] Administration Albuterol 2 puff 08/08/22 01:54 Albuterol Sulfate (*Sp) Aerosol 1 Puff INHALATION QID PRN Shortness Of Breath Or Wheezing Apixaban 2.5 mg 08/08/22 09:00 08/09/22 08:36 Apixaban 2.5 Mg Tablet PO 2.5 mg Q12HR VAIBHAV Administration Atorvastatin Calcium 10 mg 08/08/22 09:00 08/09/22 08:35 Atorvastatin 10 Mg Tablet PO 10 mg DAILY [facility]IBHAV Administration Baclofen 10 mg 08/08/22 09:00 08/09/22 17:00 Baclofen 10 Mg Tablet PO 10 mg BID [facility]IB[facility]AV Administration Budesonide 0.5 mg 08/08/22 08:00 08/09/22 08:34 Budesonide Respule Neb 0.5 Mg/2 Ml Amp INHALATION Not Given Q12HRT [facility] Cyanocobalamin 1,000 mcg 08/08/22 09:00 08/09/22 08:36 Cyanocobalamin 1,000 Mcg Tablet PO 1,000 mcg
[2022-08-09 14:08] LABS: Hepatitis C Virus Antibody 0.01 S/C; Hepatitis C Virus Antibody Negative (Negative)
--- NOTE | 2022-08-09 15:03 | PM.IMPN ---
Progress Note: A&P Assessment and Plan (1) Acute on chronic renal failure: Qualifiers: Acute renal failure type: with acute tubular necrosis Chronic kidney disease stage: stage 3 (moderate) Chronic kidney disease stage 3 subtype: unspecified whether 3a or 3b Qualified Code(s): N17.0 - Acute kidney failure with tubular necrosis; N18.30 - Chronic kidney disease, stage 3 unspecified Code(s): N17.9 - Acute kidney failure, unspecified; N18.9 - Chronic kidney disease, unspecified Status: Acute Assessment and Plan: Creatinine was up to 4.0. His baseline is anywhere from 1.7 - 2.1. -Cr better at 3.6 -Hyperkalemia resolved. Mild metabolic acidosis noted. -suspect AIN with systemic eosinophilia and rash. Usually caused by PCN, Cephalosporin or NSAIDs -not on allopurinol. -consider neoplasm, adrenal insufficiency or allergic disorders as well. -discussed with Nephrology. Plan to continue to monitor but to consider steroids if no improvement. (2) UTI (urinary tract infection) due to urinary indwelling catheter: Code(s): T83.511A - Infection and inflammatory reaction due to indwelling urethral catheter, initial encounter; N39.0 - Urinary tract infection, site not specified Status: Acute Assessment and Plan: UA noted and concerning for UTI -the patient has had a history of Pseudomonas approximately 6 months ago. -He does have chronic indwelling Leblanc catheter. -BCx NGTD. UCx growing EColi with ESBL -Levaquin was started but will change to Ertapenem renal dosing -WBC was 26 on admission; WBC tending down. (3) Hypertension: Qualifiers: Hypertension type: unspecified Qualified Code(s): I10 - Essential (primary) hypertension Code(s): I10 - Essential (primary) hypertension Status: Chronic Assessment and Plan: Patient's blood pressure was reviewed on 08/09 Blood pressure remains well controlled. Will continue current medications. (4) Chronic obstructive pulmonary disease: Code(s): J44.9 - Chronic obstructive pulmonary disease, unspecified Status: Acute Assessment and Plan: No wheezing. Remains on room air -continue with albuterol. -continue Anoro Ellipta (5) CHF (congestive heart failure): Code(s): I50.9 - Heart failure, unspecified Status: Acute Assessment and Plan: Hx of CHF. Echo in December showing EF 55-60% with Grade I diastolic dysfunction. -Lasix on hold due to OLIVER (6) Atrial fibrillation: Code(s): I48.91 - Unspecified atrial fibrillation Status: Acute Assessment and Plan: Patient with hx of AFib. EKG showing normal sinus rhythm -continue with Eliquis -continue with diltiazem for rate control (7) Anemia: Code(s): D64.9 - Anemia, unspecified Status: Acute Assessment and Plan: Hgb 13 on admission but has dropped to 10.6. -follow (8) Hypothyroid: Code(s): E03.9 - Hypothyroidism, unspecified Status: Acute Assessment and Plan: TSH noted. Continue with levothyroxine. (9) Renal mass: Code(s): N28.89 - Other specified disorders of kidney and ureter Status: Acute Assessment and Plan: 6.8cm rim calcified left renal lesion likely proteinaceous/hemorrhagic cyst. No change since 12/25/2021. Unable to do an MRI or CT with contrast at this time due to renal failure. Can be further evaluate as outpatient Plan Palpitation - this is longstanding. He does have a history of AFib. This is probably bouts of AFib with RVR. Will place on telemetry to verify. Hypocalcemia - calcium was low but on correction with the low albumin, calcium is improved at 8.1. Will continue to monitor for now. Hyponatremia - felt related to the fluid overload. should improve once able to resume diuretics Subjective Date/time seen: 08/09/22 15:03 Interval history: 71yo male with AFib, CHF, HTN, CKD and chronic indwelling Leblanc he
[2022-08-09] MEDS: LORATADINE 10 MG TABLET PO (22:02)
[2022-08-09] MEDS: MELATONIN 5 MG TABLET PO (22:02)
[2022-08-10] VITALS (12 sets, daily range): BP systolic 116–124; BP diastolic 39–51; PULSE 72–90; RESP 16–20; TEMP 35.6–36.8; O2SAT 92–95
[2022-08-10] MEDS: SODIUM CHLORIDE 0.9% IV 1,000 ML 100 ML IV CONT ×2 (02:54→13:32)
[2022-08-10] MEDS: dilTIAZem HCL 30 MG TABLET PO ×3 (05:50→20:22)
[2022-08-10] MEDS: LEVOTHYROXINE SODIUM 12.5 MCG TABLET PO (05:50)
[2022-08-10] MEDS: PANTOPRAZOLE 40 MG TABLET PO (08:24)
[2022-08-10] MEDS: MAGNESIUM OXIDE 400 MG TABLET PO (08:24)
[2022-08-10] MEDS: FERROUS SULFATE 324 MG TABLET PO (08:24)
[2022-08-10] MEDS: APIXABAN 2.5 MG TABLET PO ×2 (08:24→20:22)
[2022-08-10] MEDS: BACLOFEN 10 MG TABLET PO ×2 (08:24→16:24)
[2022-08-10] MEDS: CYANOCOBALAMIN 1,000 MCG TABLET 1000 MCG PO (08:24)
[2022-08-10] MEDS: ATORVASTATIN 10 MG TABLET PO (08:24)
[2022-08-10] MEDS: guaiFENesin 12 HR 600 MG TABCR PO ×2 (08:24→20:21)
[2022-08-10] MEDS: FLUTICASONE PROPIONATE 0.05% NA SPR 16 GM BTL (*BKC) 1 SPRAY NASAL (08:25)
[2022-08-10] MEDS: PREGABALIN (*CRX) 75 MG CAPSULE PO ×2 (08:25→16:22)
[2022-08-10] MEDS: EUCERIN CREAM 120 GM JAR 1 APPLIC TOPICAL (08:25)
[2022-08-10] MEDS: ALBUTEROL SULFATE NEB 2.5 MG/3 ML INH INHALATION ×2 (08:47→21:55)
[2022-08-10] MEDS: BUDESONIDE RESPULE NEB 0.5 MG/2 ML AMP INHALATION ×2 (08:47→21:55)
[2022-08-10] MEDS: UMECLIDINIUM/VILANTEROL 62.5-25 MCG ELLIPTA 1 PUFF INHALATION (08:47)
[2022-08-10 08:54] LABS: Albumin Level 2.9 g/dL (3.5-5.1); Anion Gap 7 mmol/L (8-16); Blood Urea Nitrogen 72 mg/dL (9-20); Calcium 6.9 mg/dL (8.4-10.2); Carbon Dioxide 20 mmol/L (22-30); Chloride 103 mmol/L (98-107); Estimated CRCL calculation 30 ml/min; Estimated Glomerular Filt Rate 20; Glucose 92 mg/dL (65-110); Magnesium 1.6 mg/dL (1.6-2.3); Phosphorus 4.6 mg/dL (2.5-4.5); Potassium 4.6 mmol/L (3.4-5.0); Sodium 130 mmol/L (137-145)
[2022-08-10] MEDS: ERTAPENEM SODIUM 0.5 GM in SODIUM CHLORIDE 0.9% IV 50 ML IVPB (11:12)
--- NOTE | 2022-08-10 11:32 | PM.PNNEP ---
Progress Note: A&P Assessment and Plan (1) OLIVER (acute kidney injury): Code(s): N17.9 - Acute kidney failure, unspecified Status: Acute Assessment and Plan: presumably due to acute infection/UTI however, AIN may be strong possibility: diffuse rash peripheral eosinophilia (worse currently but present for the last 6 months) etiology? consider trial of steroids if renal function fails to improve with current interventions follow repeat labs and UOP (2) Chronic kidney disease, stage 3: Qualifiers: Chronic kidney disease stage 3 subtype: stage 3b (GFR 30-44) Qualified Code(s): N18.32 - Chronic kidney disease, stage 3b Code(s): N18.30 - Chronic kidney disease, stage 3 unspecified Status: Chronic Assessment and Plan: creatinine had been running ~ 1.7 - 2.2mg/d this would cause him to CKD stage 3b probably from his HTN, vascular disease, and age (3) Acute UTI: Code(s): N39.0 - Urinary tract infection, site not specified Status: Acute Assessment and Plan: culture with E.coli (ESBL) on IV antibiotics WBC improving (4) Hypertension: Qualifiers: Hypertension type: unspecified Qualified Code(s): I10 - Essential (primary) hypertension Code(s): I10 - Essential (primary) hypertension Status: Chronic Assessment and Plan: reasonable control follow trend of hemodynamics (5) CHF (congestive heart failure): Code(s): I50.9 - Heart failure, unspecified Status: Chronic Assessment and Plan: appears compensated diuretics on hold due to #1 - if renal function continues to improve, would not be opposed to restart tomorrow follow respiratory status Will continue to follow. Subjective Date/time seen: 08/10/22 11:32 No apparent distress voiced at the time of my visit; feels abit swollen and he reports worsening itchiness in his hands as well; renal function a bit better today by AM labs in association with improved urine output in the last 24 hours; no other acute events overnight or earlier this morning. Exam Narrative: General: Large male in NAD Heart: IRRR, normal S1 and S2; no rub Lungs: clear to auscultation Abdomen: soft, nontender, nondistended, positive bowel sounds; + colostomy Extremities: no cyanosis or clubbing; 1+ edema Skin: diffuse rash noted Objective Data Vital Signs Vital Signs: Vital Signs Temp Pulse Resp BP Pulse Ox O2 Del Method 08/10/22 08:00 90 08/10/22 08:00 Room Air 08/10/22 09:05 79 18 08/10/22 08:48 83 18 08/10/22 08:48 95 Room Air 08/10/22 06:00 97.6 F 72 16 116/39 L 93 08/10/22 04:00 78 08/10/22 00:00 77 08/09/22 20:00 89 08/09/22 22:00 97.7 F 85 19 108/49 L 99 08/09/22 20:25 84 18 08/09/22 20:00 Room Air 08/09/22 16:00 75 Intake/Output Intake/Output: Intake & Output 08/07/22 08/08/22 08/09/22 08/10/22 23:59 23:59 23:59 23:59 Intake Total 100 2480 2650 2120 Output Total 1495 1025 1150 Balance 683 808 8629 970 Meds/Results Medications: Active Medications Generic Name Dose Route Start Last Admin Trade Name Freq PRN Reason Stop Dose Admin Acetaminophen 650 mg 08/08/22 01:54 Acetaminophen 325 Mg Tablet PO Q6-8H PRN Pain Rated 1-3 Albuterol 2.5 mg 08/08/22 08:00 08/10/22 08:47 Albuterol Sulfate Neb 2.5 Mg/3 Ml Inh INHALATION 2.5 mg Q12HRT [facility]IB[facility]AV Administration Albuterol 2 puff 08/08/22 01:54 Albuterol Sulfate (*Sp) Aerosol 1 Puff INHALATION QID PRN Shortness Of Breath Or Wheezing Apixaban 2.5 mg 08/08/22 09:00 08/10/22 08:24 Apixaban 2.5 Mg Tablet PO 2.5 mg Q12HR [facility] Administration Atorvastatin Calcium 10 mg 08/08/22 09:00 08/10/22 08:24 Atorvastatin 10 Mg Tablet PO 10 mg DAILY VAIBHAV Administration Baclofen 10 mg 08/08/22 09:00 08/10/22 08:24 [place]
--- NOTE | 2022-08-10 11:32 | P.PNNP_ITS ---
Progress Note: A&P Assessment and Plan (1) OLIVER (acute kidney injury): Code(s): N17.9 - Acute kidney failure, unspecified Status: Acute Assessment and Plan: * presumably due to acute infection/UTI * however, AIN may be strong possibility: * diffuse rash * peripheral eosinophilia (worse currently but present for the last 6 months) * etiology? * consider trial of steroids if renal function fails to improve with current interventions * follow repeat labs and UOP (2) Chronic kidney disease, stage 3: Qualifiers: Chronic kidney disease stage 3 subtype: stage 3b (GFR 30-44) Qualified Code(s): N18.32 - Chronic kidney disease, stage 3b Code(s): N18.30 - Chronic kidney disease, stage 3 unspecified Status: Chronic Assessment and Plan: * creatinine had been running ~ 1.7 - 2.2mg/d * this would cause him to CKD stage 3b * probably from his HTN, vascular disease, and age (3) Acute UTI: Code(s): N39.0 - Urinary tract infection, site not specified Status: Acute Assessment and Plan: * culture with E.coli (ESBL) * on IV antibiotics * WBC improving (4) Hypertension: Qualifiers: Hypertension type: unspecified Qualified Code(s): I10 - Essential (primary) hypertension Code(s): I10 - Essential (primary) hypertension Status: Chronic Assessment and Plan: * reasonable control * follow trend of hemodynamics (5) CHF (congestive heart failure): Code(s): I50.9 - Heart failure, unspecified Status: Chronic Assessment and Plan: * appears compensated * diuretics on hold due to #1 - if renal function continues to improve, would not be opposed to restart tomorrow * follow respiratory status Will continue to follow. Subjective Date/time seen: 08/10/22 11:32 No apparent distress voiced at the time of my visit; feels abit swollen and he reports worsening itchiness in his hands as well; renal function a bit better today by AM labs in association with improved urine output in the last 24 hours; no other acute events overnight or earlier this morning. Exam Narrative: General: Large male in NAD Heart: IRRR, normal S1 and S2; no rub Lungs: clear to auscultation Abdomen: soft, nontender, nondistended, positive bowel sounds; + colostomy Extremities: no cyanosis or clubbing; 1+ edema Skin: diffuse rash noted Objective Data Vital Signs Vital Signs: Vital Signs Temp Pulse Resp BP Pulse Ox O2 Del Method 08/10/22 08:00 90 08/10/22 08:00 Room Air 08/10/22 09:05 79 18 08/10/22 08:48 83 18 08/10/22 08:48 95 Room Air 08/10/22 06:00 97.6 F 72 16 116/39 L 93 08/10/22 04:00 78 08/10/22 00:00 77 08/09/22 20:00 89 08/09/22 22:00 97.7 F 85 19 108/49 L 99 08/09/22 20:25 84 18 08/09/22 20:00 Room Air 08/09/22 16:00 75 Intake/Output Intake/Output: Intake & Output 08/07/22 08/08/22 08/09/22 08/10/22 23:59 23:59 23:59 23:59 Intake Total 100 2480 2650 2120 Output Total 1495 1025 1150 Balance 996 169 2997 970 Meds/Results Medications: Active Medications
[2022-08-10 11:58] LABS: Basophils Percent Auto 0.2 % (0.2-1.2); Eosinophils Absolute Auto 3.1 K/mm3 (0-0.3); Eosinophils Percent Auto 18.2 % (0-4.4); Hematocrit 30.1 % (42.0-52.0); Hemoglobin 9.5 g/dL (14.0-18.0); Immature Granulocyte Absolute 0.07 K/mm3 (0.00-0.031); Immature Granulocyte Percent A 0.4 % (0-0.5); Lymphocytes Absolute Auto 3.11 K/mm3 (0.9-3.2); Lymphocytes Percent Auto 18.4 % (18.3-44.2); Mean Corpuscular HGB Conc 31.6 g/dl (32-36); Mean Corpuscular Hemoglobin 26.3 pg (26-34); Mean Corpuscular Volume 83.4 fl (80-100); Mean Platelet Volume 9.8 fl (7.4-10.4); Monocytes Absolute Auto 1.1 K/mm3 (0.1-0.6); Monocytes Percent Auto 6.3 % (2.6-8.5); Neutrophils Absolute Auto 9.6 K/mm3 (1.3-6.7); Neutrophils Percent Auto 56.5 % (45.5-73.1); Platelet Count Result 254 k/mm3 (150-375); Red Blood Count 3.61 M/mm3 (4.6-6.20); Red Cell Distribution Width 15.9 % (11.5-14.5); White Blood Count 16.9 K/mm3 (4.5-10.0)
--- NOTE | 2022-08-10 15:00 | PM.IMPN ---
Progress Note: A&P Assessment and Plan (1) Acute on chronic renal failure: Qualifiers: Acute renal failure type: with acute tubular necrosis Chronic kidney disease stage: stage 3 (moderate) Chronic kidney disease stage 3 subtype: unspecified whether 3a or 3b Qualified Code(s): N17.0 - Acute kidney failure with tubular necrosis; N18.30 - Chronic kidney disease, stage 3 unspecified Code(s): N17.9 - Acute kidney failure, unspecified; N18.9 - Chronic kidney disease, unspecified Status: Acute Assessment and Plan: Creatinine was up to 4.0. His baseline is anywhere from 1.7 - 2.1. -Cr better at 3.1 but eospinophilia worse at 18% (3100) -Hyperkalemia resolved. Mild metabolic acidosis noted. -suspect AIN with systemic eosinophilia and rash. -Usually caused by PCN, Cephalosporin or NSAIDs. Not on allopurinol. Consider neoplasm or allergic disorders. Cortisol level okay -discussed with Nephrology. Plan to add steroids and stop IV fluids. Bumex 1mg x 1. Continue to monitor. Discussed with daughters. (2) UTI (urinary tract infection) due to urinary indwelling catheter: Code(s): T83.511A - Infection and inflammatory reaction due to indwelling urethral catheter, initial encounter; N39.0 - Urinary tract infection, site not specified Status: Acute Assessment and Plan: UA noted and concerning for UTI -He does have chronic indwelling Pereira catheter. -BCx NGTD. UCx growing EColi with ESBL -Levaquin was started but changed to Ertapenem renal dosing on 08/09 -WBC was 26 on admission; WBC tending down now (3) Hypertension: Qualifiers: Hypertension type: unspecified Qualified Code(s): I10 - Essential (primary) hypertension Code(s): I10 - Essential (primary) hypertension Status: Chronic Assessment and Plan: Patient's blood pressure was reviewed on 08/10 Blood pressure remains well controlled. Will continue current medications. (4) Chronic obstructive pulmonary disease: Code(s): J44.9 - Chronic obstructive pulmonary disease, unspecified Status: Acute Assessment and Plan: No wheezing. Remains on room air -continue with albuterol. -continue Anoro Ellipta (5) CHF (congestive heart failure): Code(s): I50.9 - Heart failure, unspecified Status: Chronic Assessment and Plan: Hx of CHF. Echo in December showing EF 55-60% with Grade I diastolic dysfunction. -he is becoming quite edematous -Lasix on hold due to OLIVER -Resume lasix when able. Bumex x1 tonight (6) Atrial fibrillation: Code(s): I48.91 - Unspecified atrial fibrillation Status: Acute Assessment and Plan: Patient with hx of AFib. EKG showing normal sinus rhythm -continue with Eliquis -continue with diltiazem for rate control (7) Anemia: Code(s): D64.9 - Anemia, unspecified Status: Acute Assessment and Plan: Hgb 13 on admission but has dropped to 9-10 range related to fluid overload -follow (8) Hypothyroid: Code(s): E03.9 - Hypothyroidism, unspecified Status: Acute Assessment and Plan: TSH noted. Continue with levothyroxine. (9) Renal mass: Code(s): N28.89 - Other specified disorders of kidney and ureter Status: Acute Assessment and Plan: 6.8cm rim calcified left renal lesion likely proteinaceous/hemorrhagic cyst. No change since 12/25/2021. Unable to do an MRI or CT with contrast at this time due to renal failure. Can be further evaluate as outpatient Plan Palpitation - this is longstanding. He does have a history of AFib. This is probably bouts of AFib with RVR. No further symptoms and nothing on telemetry. Follow Hypocalcemia - calcium was low but on correction with the low albumin, calcium is improved at 8.0. Will continue to monitor for now. Hyponatremia - felt related to the fluid overload. should improve once able to resume diuretics Subjective Date/ti
[2022-08-10] MEDS: diphenhydrAMINE HCl CAP 25 MG CAPSULE 12.5 MG PO (16:21)
[2022-08-10 18:50] LABS: Immunoglobulin A 129 mg/dL (70-400); Immunoglobulin G 1327 mg/dL (700-1600)
[2022-08-10 19:00] LABS: Immunoglobulin M < 25 mg/dL (40-230)
[2022-08-10] MEDS: BUMETANIDE INJ 1 MG/4 ML VIAL IV PUSH (19:38)
[2022-08-10] MEDS: predniSONE 20 MG TABLET 40 MG PO (19:39)
[2022-08-10] MEDS: LORATADINE 10 MG TABLET PO (20:21)
[2022-08-10] MEDS: MELATONIN 5 MG TABLET PO (20:21)
[2022-08-11] VITALS (13 sets, daily range): BP systolic 109–135; BP diastolic 55–84; PULSE 63–78; RESP 16–20; TEMP 35.8–36.6; O2SAT 91–97
[2022-08-11] MEDS: LEVOTHYROXINE SODIUM 12.5 MCG TABLET PO (06:32)
[2022-08-11] MEDS: diphenhydrAMINE HCl CAP 25 MG CAPSULE 12.5 MG PO ×2 (06:32→18:00)
[2022-08-11] MEDS: dilTIAZem HCL 30 MG TABLET PO ×3 (06:32→20:51)
[2022-08-11 07:47] LABS: Alanine Aminotransferase 18 U/L (6-50); Albumin Level 2.7 g/dL (3.5-5.1); Alkaline Phosphatase 153 U/L (38-126); Anion Gap 7 mmol/L (8-16); Aspartate Amino Transferase 21 U/L (17-59); Bilirubin,Total 0.4 mg/dL (0.2-1.3); Blood Urea Nitrogen 67 mg/dL (9-20); Calcium 6.9 mg/dL (8.4-10.2); Carbon Dioxide 18 mmol/L (22-30); Chloride 109 mmol/L (98-107); Estimated CRCL calculation 36 ml/min; Estimated Glomerular Filt Rate 24; Glucose 124 mg/dL (65-110); Magnesium 1.6 mg/dL (1.6-2.3); Phosphorus 4.7 mg/dL (2.5-4.5); Potassium 5.3 mmol/L (3.4-5.0); Sodium 134 mmol/L (137-145)
[2022-08-11 07:57] LABS: Basophils Percent Auto 0.2 % (0.2-1.2); Eosinophils Absolute Auto 0.2 K/mm3 (0-0.3); Eosinophils Percent Auto 1.9 % (0-4.4); Hematocrit 28.4 % (42.0-52.0); Hemoglobin 8.9 g/dL (14.0-18.0); Immature Granulocyte Absolute 0.11 K/mm3 (0.00-0.031); Immature Granulocyte Percent A 1.1 % (0-0.5); Lymphocytes Absolute Auto 1.83 K/mm3 (0.9-3.2); Lymphocytes Percent Auto 17.7 % (18.3-44.2); Mean Corpuscular HGB Conc 31.3 g/dl (32-36); Mean Corpuscular Hemoglobin 26.4 pg (26-34); Mean Corpuscular Volume 84.3 fl (80-100); Mean Platelet Volume 10.2 fl (7.4-10.4); Monocytes Absolute Auto 0.2 K/mm3 (0.1-0.6); Monocytes Percent Auto 1.9 % (2.6-8.5); Neutrophils Percent Auto 77.2 % (45.5-73.1); Platelet Count Result 220 k/mm3 (150-375); Red Blood Count 3.37 M/mm3 (4.6-6.20); Red Cell Distribution Width 15.8 % (11.5-14.5); White Blood Count 10.3 K/mm3 (4.5-10.0)
[2022-08-11] MEDS: ALBUTEROL SULFATE NEB 2.5 MG/3 ML INH INHALATION ×2 (08:39→21:09)
[2022-08-11] MEDS: UMECLIDINIUM/VILANTEROL 62.5-25 MCG ELLIPTA 1 PUFF INHALATION (08:39)
[2022-08-11] MEDS: BUDESONIDE RESPULE NEB 0.5 MG/2 ML AMP INHALATION ×2 (08:39→21:09)
[2022-08-11] MEDS: BACLOFEN 10 MG TABLET PO ×2 (09:17→17:10)
[2022-08-11] MEDS: FERROUS SULFATE 324 MG TABLET PO (09:17)
[2022-08-11] MEDS: ATORVASTATIN 10 MG TABLET PO (09:17)
[2022-08-11] MEDS: guaiFENesin 12 HR 600 MG TABCR PO ×2 (09:17→20:51)
[2022-08-11] MEDS: PREGABALIN (*CRX) 75 MG CAPSULE PO ×2 (09:17→17:10)
[2022-08-11] MEDS: predniSONE 20 MG TABLET 40 MG PO (09:17)
[2022-08-11] MEDS: CYANOCOBALAMIN 1,000 MCG TABLET 1000 MCG PO (09:18)
[2022-08-11] MEDS: PANTOPRAZOLE 40 MG TABLET PO (09:18)
[2022-08-11] MEDS: MAGNESIUM OXIDE 400 MG TABLET PO (09:18)
[2022-08-11] MEDS: APIXABAN 2.5 MG TABLET PO ×2 (09:18→20:51)
[2022-08-11] MEDS: FLUTICASONE PROPIONATE 0.05% NA SPR 16 GM BTL (*BKC) 1 SPRAY NASAL (09:18)
[2022-08-11] MEDS: EUCERIN CREAM 120 GM JAR 1 APPLIC TOPICAL (09:19)
--- NOTE | 2022-08-11 10:41 | PM.PNNEP ---
Progress Note: A&P Assessment and Plan (1) OLIVER (acute kidney injury): Code(s): N17.9 - Acute kidney failure, unspecified Status: Acute Assessment and Plan: presumably due to acute infection/UTI however, AIN may be strong possibility: diffuse rash peripheral eosinophilia (worse currently but present for the last 6 months) etiology? started trial of steroids follow repeat labs and UOP (2) Chronic kidney disease, stage 3: Qualifiers: Chronic kidney disease stage 3 subtype: stage 3b (GFR 30-44) Qualified Code(s): N18.32 - Chronic kidney disease, stage 3b Code(s): N18.30 - Chronic kidney disease, stage 3 unspecified Status: Chronic Assessment and Plan: creatinine had been running ~ 1.7 - 2.2mg/d this would cause him to CKD stage 3b probably from his HTN, vascular disease, and age (3) Acute UTI: Code(s): N39.0 - Urinary tract infection, site not specified Status: Acute Assessment and Plan: culture with E.coli (ESBL) on IV antibiotics WBC improving (4) Hypertension: Qualifiers: Hypertension type: unspecified Qualified Code(s): I10 - Essential (primary) hypertension Code(s): I10 - Essential (primary) hypertension Status: Chronic Assessment and Plan: reasonable control follow trend of hemodynamics (5) CHF (congestive heart failure): Code(s): I50.9 - Heart failure, unspecified Status: Chronic Assessment and Plan: appears compensated diuretics PRN follow respiratory status Will continue to follow. Subjective Date/time seen: 08/11/22 10:41 Started on steroids and given IV bumex yesterday due to worsening eosinophilia in conjunction with worsening swelling/edema; reasonable diuresis with IV bumex; creatinine improving as well; drop in eosinophilia noted by AM labs; no acute distress voiced at the time of my visit. Exam Narrative: General: Large male in NAD Heart: IRRR, normal S1 and S2; no rub Lungs: clear to auscultation Abdomen: soft, nontender, nondistended, positive bowel sounds; + colostomy Extremities: no cyanosis or clubbing; 1 - 2+ edema Skin: diffuse rash present Objective Data Vital Signs Vital Signs: Vital Signs Temp Pulse Resp BP Pulse Ox O2 Del Method 08/11/22 08:59 75 18 08/11/22 08:40 72 18 08/11/22 04:00 65 08/11/22 00:00 77 08/10/22 20:00 83 08/11/22 05:48 97.0 F L 71 16 109/84 91 08/10/22 22:19 98.2 F 90 18 118/46 L 92 08/10/22 21:57 92 Room Air 08/10/22 21:57 81 18 08/10/22 16:00 78 08/10/22 14:00 96.0 F L 78 20 124/51 L 95 08/10/22 12:00 86 Intake/Output Intake/Output: Intake & Output 08/08/22 08/09/22 08/10/22 08/11/22 23:59 23:59 23:59 23:59 Intake Total 2480 2650 2600 360 Output Total 1495 1025 2000 1000 Balance 985 1625 600 -640 Meds/Results Medications: Active Medications Generic Name Dose Route Start Last Admin Trade Name Freq PRN Reason Stop Dose Admin Acetaminophen 650 mg 08/08/22 01:54 Acetaminophen 325 Mg Tablet PO Q6-8H PRN Pain Rated 1-3 Albuterol 2.5 mg 08/08/22 08:00 08/11/22 08:39 Albuterol Sulfate Neb 2.5 Mg/3 Ml Inh INHALATION 2.5 mg Q12HRT VAIBHAV Administration Albuterol 2 puff 08/08/22 01:54 Albuterol Sulfate (*Sp) Aerosol 1 Puff INHALATION QID PRN Shortness Of Breath Or Wheezing Apixaban 2.5 mg 08/08/22 09:00 08/11/22 09:18 Apixaban 2.5 Mg Tablet PO 2.5 mg Q12HR VAIBHAV Administration Atorvastatin Calcium 10 mg 08/08/22 09:00 08/11/22 09:17 Atorvastatin 10 Mg Tablet PO 10 mg DAILY VAIBHAV Administration Baclofen 10 mg 08/08/22 09:00 08/11/22 09:17 Baclofen 10 Mg Tablet PO 10 mg BID VAIBHAV Administration Budesonide 0.5 mg 08/08/22 08:00 08/11/22 08:39 Budesonide Respule Neb 0.5 Mg/2 Ml Amp INHALATION 0.5 mg Q12HRT
--- NOTE | 2022-08-11 11:53 | PM.IMPN ---
Progress Note: A&P Assessment and Plan (1) Acute on chronic renal failure: Qualifiers: Acute renal failure type: with acute tubular necrosis Chronic kidney disease stage: stage 3 (moderate) Chronic kidney disease stage 3 subtype: unspecified whether 3a or 3b Qualified Code(s): N17.0 - Acute kidney failure with tubular necrosis; N18.30 - Chronic kidney disease, stage 3 unspecified Code(s): N17.9 - Acute kidney failure, unspecified; N18.9 - Chronic kidney disease, unspecified Status: Acute Assessment and Plan: Creatinine was up to 4.0. His baseline is anywhere from 1.7 - 2.1. -suspect AIN with systemic eosinophilia and rash. -Usually caused by PCN, Cephalosporin or NSAIDs. Not on allopurinol. Consider neoplasm or allergic disorders. Cortisol level okay -Cr better at 2.6 and eosinophilia better as well -Hyperkalemia recurrent so Lorene added -we added steroids and gave Bumex 1mg x 1 with good results. Continue to monitor. - Hold for now but consider repeating Bumex tomorrow. (2) UTI (urinary tract infection) due to urinary indwelling catheter: Code(s): T83.511A - Infection and inflammatory reaction due to indwelling urethral catheter, initial encounter; N39.0 - Urinary tract infection, site not specified Status: Acute Assessment and Plan: UA noted and concerning for UTI -He does have chronic indwelling Pereira catheter. -BCx NGTD. UCx growing EColi with ESBL -Levaquin was started but changed to Ertapenem on 08/09 -WBC was 26 on admission; WBC almost normal now (3) Hypertension: Qualifiers: Hypertension type: unspecified Qualified Code(s): I10 - Essential (primary) hypertension Code(s): I10 - Essential (primary) hypertension Status: Chronic Assessment and Plan: Patient's blood pressure was reviewed on 08/11 Blood pressure remains well controlled. Will continue current medications. (4) Chronic obstructive pulmonary disease: Code(s): J44.9 - Chronic obstructive pulmonary disease, unspecified Status: Acute Assessment and Plan: No wheezing. Remains on room air -continue with albuterol. -continue Anoro Ellipta (5) CHF (congestive heart failure): Code(s): I50.9 - Heart failure, unspecified Status: Chronic Assessment and Plan: Hx of CHF. Echo in December showing EF 55-60% with Grade I diastolic dysfunction. -he has becoming quite edematous -Lasix on hold due to OLIVER -Bumex x1 yesterday with good UOP and Cr better. (6) Atrial fibrillation: Code(s): I48.91 - Unspecified atrial fibrillation Status: Acute Assessment and Plan: Patient with hx of AFib. EKG showing normal sinus rhythm -continue with Eliquis -continue with diltiazem for rate control (7) Anemia: Code(s): D64.9 - Anemia, unspecified Status: Acute Assessment and Plan: Hgb 13 on admission but has dropped to 9-10 range related to fluid overload -follow (8) Hypothyroid: Code(s): E03.9 - Hypothyroidism, unspecified Status: Acute Assessment and Plan: TSH noted. Continue with levothyroxine. (9) Renal mass: Code(s): N28.89 - Other specified disorders of kidney and ureter Status: Acute Assessment and Plan: 6.8cm rim calcified left renal lesion likely proteinaceous/hemorrhagic cyst. No change since 12/25/2021. Unable to do an MRI or CT with contrast at this time due to renal failure. Can be further evaluate as outpatient Plan Palpitation - this is longstanding. He does have a history of AFib. This is probably bouts of AFib with RVR. No further symptoms and nothing on telemetry. Follow Hypocalcemia - calcium was low but on correction with the low albumin, calcium is improved at 8.2. Will continue to monitor for now. Hyponatremia - felt related to the fluid overload. Improved with diuretics Neuropathy pain - Reviewed the chart. He does have Chester and Lyri
[2022-08-11] MEDS: SODIUM BICARBONATE TAB 650 MG TABLET PO ×2 (13:17→17:10)
[2022-08-11] MEDS: SODIUM ZIRCONIUM CYCLOSILICATE 10 GM POWD.PACK PO (13:17)
[2022-08-11] MEDS: ERTAPENEM SODIUM 1 GM in SODIUM CHLORIDE 0.9% IV 50 ML IVPB (13:17)
[2022-08-11 17:02] LABS: Abnormal Protein Band 1 0.8 g/dL; Albumin 2.9 g/dL (3.8-4.8); Alpha 1 Globulin 0.5 g/dL (0.2-0.3); Alpha 2 Globulin 0.7 g/dL (0.5-0.9); Beta 1 Globulin 0.4 g/dL (0.4-0.6); Gamma Globulin 0.6 g/dL (0.8-1.7); Protein, Total 6.2 g/dL (6.1-8.1)
[2022-08-11] MEDS: MELATONIN 5 MG TABLET PO (20:50)
[2022-08-11] MEDS: LORATADINE 10 MG TABLET PO (20:50)
[2022-08-11 20:56] LABS: SM Antibody <1.0; SM/RNP Antibody <1.0
[2022-08-12] VITALS (13 sets, daily range): BP systolic 117–124; BP diastolic 44–52; PULSE 57–80; RESP 16–18; TEMP 36.3–36.8; O2SAT 92–94
[2022-08-12] MEDS: dilTIAZem HCL 30 MG TABLET PO ×3 (05:17→20:39)
[2022-08-12] MEDS: LEVOTHYROXINE SODIUM 12.5 MCG TABLET PO (05:17)
[2022-08-12 07:04] LABS: Basophils Percent Auto 0.1 % (0.2-1.2); Eosinophils Absolute Auto 0.1 K/mm3 (0-0.3); Eosinophils Percent Auto 0.6 % (0-4.4); Hematocrit 24.9 % (42.0-52.0); Hemoglobin 8.1 g/dL (14.0-18.0); Immature Granulocyte Percent A 0.9 % (0-0.5); Lymphocytes Absolute Auto 1.93 K/mm3 (0.9-3.2); Lymphocytes Percent Auto 17.4 % (18.3-44.2); Mean Corpuscular HGB Conc 32.5 g/dl (32-36); Mean Corpuscular Hemoglobin 26.6 pg (26-34); Mean Corpuscular Volume 81.6 fl (80-100); Mean Platelet Volume 9.7 fl (7.4-10.4); Monocytes Absolute Auto 0.8 K/mm3 (0.1-0.6); Monocytes Percent Auto 6.8 % (2.6-8.5); Neutrophils Absolute Auto 8.2 K/mm3 (1.3-6.7); Neutrophils Percent Auto 74.2 % (45.5-73.1); Platelet Count Result 197 k/mm3 (150-375); Red Blood Count 3.05 M/mm3 (4.6-6.20); Red Cell Distribution Width 15.7 % (11.5-14.5); White Blood Count 11.1 K/mm3 (4.5-10.0)
[2022-08-12 07:14] LABS: Albumin Level 3.1 g/dL (3.5-5.1); Anion Gap 3 mmol/L (8-16); Blood Urea Nitrogen 57 mg/dL (9-20); Calcium 7.2 mg/dL (8.4-10.2); Carbon Dioxide 23 mmol/L (22-30); Chloride 103 mmol/L (98-107); Estimated CRCL calculation 41 ml/min; Estimated Glomerular Filt Rate 28; Glucose 114 mg/dL (65-110); Magnesium 1.7 mg/dL (1.6-2.3); Phosphorus 4.2 mg/dL (2.5-4.5); Potassium 4.4 mmol/L (3.4-5.0); Sodium 129 mmol/L (137-145)
--- NOTE | 2022-08-12 08:35 | P.CDI_ITS ---
CDI Query Clarified Diagnosis Clarified Diagnosis: Documented history of CHF. Furosemide taken as a home medication. Elevated BNP on 08/07/22 lab work. Pt has received IV Bumex on 08/12/22. Edema documented. CHF noted on assessment and plan. Please specify type and acuity of heart failure if known. Risk Factors: Clinical Indicators: Treatment: * Acute * Chronic * Acute on Chronic * Unknown * Systolic * Diastolic * Combined Systolic and Diastolic * Unknown
[2022-08-12] MEDS: guaiFENesin 12 HR 600 MG TABCR PO ×2 (08:47→20:39)
[2022-08-12] MEDS: FERROUS SULFATE 324 MG TABLET PO (08:47)
[2022-08-12] MEDS: ATORVASTATIN 10 MG TABLET PO (08:47)
[2022-08-12] MEDS: APIXABAN 2.5 MG TABLET PO ×2 (08:47→20:39)
[2022-08-12] MEDS: BACLOFEN 10 MG TABLET PO ×2 (08:47→16:29)
[2022-08-12] MEDS: PANTOPRAZOLE 40 MG TABLET PO (08:48)
[2022-08-12] MEDS: predniSONE 20 MG TABLET 40 MG PO (08:48)
[2022-08-12] MEDS: CYANOCOBALAMIN 1,000 MCG TABLET 1000 MCG PO (08:48)
[2022-08-12] MEDS: BUMETANIDE INJ 1 MG/4 ML VIAL IV PUSH (08:49)
[2022-08-12] MEDS: FLUTICASONE PROPIONATE 0.05% NA SPR 16 GM BTL (*BKC) 1 SPRAY NASAL (08:49)
[2022-08-12] MEDS: SODIUM BICARBONATE TAB 650 MG TABLET PO ×2 (08:50→16:28)
[2022-08-12] MEDS: MAGNESIUM OXIDE 400 MG TABLET PO (08:50)
[2022-08-12] MEDS: EUCERIN CREAM 120 GM JAR 1 APPLIC TOPICAL (08:51)
[2022-08-12] MEDS: PREGABALIN (*CRX) 75 MG CAPSULE PO ×2 (08:51→16:28)
--- NOTE | 2022-08-12 10:21 | P.PNNP_ITS ---
Progress Note: A&P Assessment and Plan (1) OLIVER (acute kidney injury): Code(s): N17.9 - Acute kidney failure, unspecified Status: Acute Assessment and Plan: * presumably due to acute infection/UTI * however, AIN may be strong possibility: * diffuse rash * peripheral eosinophilia (worse on admission but present for the last 6 months) * etiology? -- eosinophilia doing better now * on trial of steroids * PRN IV diuretics as needed with eventual restart of oral diuretics * follow repeat labs and UOP (2) Chronic kidney disease, stage 3: Qualifiers: Chronic kidney disease stage 3 subtype: stage 3b (GFR 30-44) Qualified Code(s): N18.32 - Chronic kidney disease, stage 3b Code(s): N18.30 - Chronic kidney disease, stage 3 unspecified Status: Chronic Assessment and Plan: * creatinine had been running ~ 1.7 - 2.2mg/d * this would cause him to CKD stage 3b * probably from his HTN, vascular disease, and age (3) Acute UTI: Code(s): N39.0 - Urinary tract infection, site not specified Status: Acute Assessment and Plan: * culture with E.coli (ESBL) * on IV antibiotics * WBC improving (4) Hypertension: Qualifiers: Hypertension type: unspecified Qualified Code(s): I10 - Essential (primary) hypertension Code(s): I10 - Essential (primary) hypertension Status: Chronic Assessment and Plan: * reasonable control * follow trend of hemodynamics (5) CHF (congestive heart failure): Code(s): I50.9 - Heart failure, unspecified Status: Chronic Assessment and Plan: * appears compensated * diuretics PRN * follow respiratory status Will continue to follow. Subjective Date/time seen: 08/12/22 10:21 Overall, seems to be doing better; tolerated steroids and PRN diuretic therapy as noted; renal function continues to slowly improve; no apparent distress noted at the time of my visit. Exam Narrative: General: Large male in NAD Heart: IRRR, normal S1 and S2; no rub Lungs: clear to auscultation Abdomen: soft, nontender, nondistended, positive bowel sounds; + colostomy Extremities: no cyanosis or clubbing; 1 - 2+ edema Skin: diffuse rash noted (better?) Objective Data Vital Signs Vital Signs: Vital Signs Temp Pulse Resp BP Pulse Ox O2 Del Method 08/12/22 06:11 98.2 F 57 L 18 122/45 L 94 08/12/22 04:00 60 08/12/22 00:00 71 08/11/22 20:00 69 08/11/22 22:01 97.9 F 66 18 135/55 L 93 08/11/22 21:13 92 Room Air 08/11/22 21:12 71 16 08/11/22 14:00 96.4 F L 64 20 128/55 L 97 08/11/22 16:00 63 08/11/22 12:00 76 Intake/Output Intake/Output: Intake & Output 08/09/22 08/10/22 08/11/22 08/12/22 23:59 23:59 23:59 23:59 Intake Total 2650 2600 1730 120 Output Total 1025 2000 2150 1150 Balance 1953 [phone] Meds/Results Medications: Active Medications Generic Name Dose Route Start Last Admin Trade Name Freq PRN Reason Stop Dose Admin Acetaminophen 650 mg 08/08/22 01:54 Acetaminophen 325 Mg Tablet PO Q6-8H PRN
--- NOTE | 2022-08-12 10:21 | PM.PNNEP ---
Progress Note: A&P Assessment and Plan (1) OLIVER (acute kidney injury): Code(s): N17.9 - Acute kidney failure, unspecified Status: Acute Assessment and Plan: presumably due to acute infection/UTI however, AIN may be strong possibility: diffuse rash peripheral eosinophilia (worse on admission but present for the last 6 months) etiology? -- eosinophilia doing better now on trial of steroids PRN IV diuretics as needed with eventual restart of oral diuretics follow repeat labs and UOP (2) Chronic kidney disease, stage 3: Qualifiers: Chronic kidney disease stage 3 subtype: stage 3b (GFR 30-44) Qualified Code(s): N18.32 - Chronic kidney disease, stage 3b Code(s): N18.30 - Chronic kidney disease, stage 3 unspecified Status: Chronic Assessment and Plan: creatinine had been running ~ 1.7 - 2.2mg/d this would cause him to CKD stage 3b probably from his HTN, vascular disease, and age (3) Acute UTI: Code(s): N39.0 - Urinary tract infection, site not specified Status: Acute Assessment and Plan: culture with E.coli (ESBL) on IV antibiotics WBC improving (4) Hypertension: Qualifiers: Hypertension type: unspecified Qualified Code(s): I10 - Essential (primary) hypertension Code(s): I10 - Essential (primary) hypertension Status: Chronic Assessment and Plan: reasonable control follow trend of hemodynamics (5) CHF (congestive heart failure): Code(s): I50.9 - Heart failure, unspecified Status: Chronic Assessment and Plan: appears compensated diuretics PRN follow respiratory status Will continue to follow. Subjective Date/time seen: 08/12/22 10:21 Overall, seems to be doing better; tolerated steroids and PRN diuretic therapy as noted; renal function continues to slowly improve; no apparent distress noted at the time of my visit. Exam Narrative: General: Large male in NAD Heart: IRRR, normal S1 and S2; no rub Lungs: clear to auscultation Abdomen: soft, nontender, nondistended, positive bowel sounds; + colostomy Extremities: no cyanosis or clubbing; 1 - 2+ edema Skin: diffuse rash noted (better?) Objective Data Vital Signs Vital Signs: Vital Signs Temp Pulse Resp BP Pulse Ox O2 Del Method 08/12/22 06:11 98.2 F 57 L 18 122/45 L 94 01/24/23 04:00 60 08/12/22 00:00 71 08/11/22 20:00 69 08/11/22 22:01 97.9 F 66 18 135/55 L 93 08/11/22 21:13 92 Room Air 08/11/22 21:12 71 16 08/11/22 14:00 96.4 F L 64 20 128/55 L 97 08/11/22 16:00 63 08/11/22 12:00 76 Intake/Output Intake/Output: Intake & Output 08/09/22 08/10/22 08/11/22 08/12/22 23:59 23:59 23:59 23:59 Intake Total 2650 2600 1730 120 Output Total 1025 2000 2150 1150 Balance 2013 [phone] Meds/Results Medications: Active Medications Generic Name Dose Route Start Last Admin Trade Name Freq PRN Reason Stop Dose Admin Acetaminophen 650 mg 08/08/22 01:54 Acetaminophen 325 Mg Tablet PO Q6-8H PRN Pain Rated 1-3 Albuterol 2.5 mg 08/08/22 08:00 08/11/22 21:09 Albuterol Sulfate Neb 2.5 Mg/3 Ml Inh INHALATION 2.5 mg Q12HRT VAIBHAV Administration Albuterol 2 puff 08/08/22 01:54 Albuterol Sulfate (*Sp) Aerosol 1 Puff INHALATION QID PRN Shortness Of Breath Or Wheezing Apixaban 2.5 mg 08/08/22 09:00 08/12/22 08:47 Apixaban 2.5 Mg Tablet PO 2.5 mg Q12HR VAIBHAV Administration Atorvastatin Calcium 10 mg 08/08/22 09:00 08/12/22 08:47 Atorvastatin 10 Mg Tablet PO 10 mg DAILY VAIBHAV Administration Baclofen 10 mg 08/08/22 09:00 08/12/22 08:47 Baclofen 10 Mg Tablet PO 10 mg BID VAIBHAV Administration Budesonide 0.5 mg 08/08/22 08:00 08/11/22 21:09 Budesonide Respule Neb 0.5 Mg/2 Ml Amp INHALATION 0.5 mg Q12HRT VAIBHAV Administration Cyanocobalamin 1,0
[2022-08-12] MEDS: UMECLIDINIUM/VILANTEROL 62.5-25 MCG ELLIPTA 1 PUFF INHALATION (11:08)
[2022-08-12] MEDS: ALBUTEROL SULFATE NEB 2.5 MG/3 ML INH INHALATION ×2 (11:08→20:58)
[2022-08-12] MEDS: BUDESONIDE RESPULE NEB 0.5 MG/2 ML AMP INHALATION ×2 (11:08→20:59)
[2022-08-12] MEDS: ERTAPENEM SODIUM 1 GM in SODIUM CHLORIDE 0.9% IV 50 ML IVPB (12:11)
--- NOTE | 2022-08-12 16:06 | PM.IMPN ---
Progress Note: A&P Assessment and Plan (1) Acute on chronic renal failure: Qualifiers: Acute renal failure type: with acute tubular necrosis Chronic kidney disease stage: stage 3 (moderate) Chronic kidney disease stage 3 subtype: unspecified whether 3a or 3b Qualified Code(s): N17.0 - Acute kidney failure with tubular necrosis; N18.30 - Chronic kidney disease, stage 3 unspecified Code(s): N17.9 - Acute kidney failure, unspecified; N18.9 - Chronic kidney disease, unspecified Status: Acute Assessment and Plan: Creatinine was up to 4.0. His baseline is anywhere from 1.7 - 2.1. -suspect AIN with systemic eosinophilia and rash. -Usually caused by PCN, Cephalosporin or NSAIDs. Not on allopurinol. Consider neoplasm or allergic disorders. Cortisol level okay -Cr better at 2.3 and eosinophilia better as well -Hyperkalemia resolved -continue steroids -continue Bumex prn (2) UTI (urinary tract infection) due to urinary indwelling catheter: Code(s): T83.511A - Infection and inflammatory reaction due to indwelling urethral catheter, initial encounter; N39.0 - Urinary tract infection, site not specified Status: Acute Assessment and Plan: UA noted and concerning for UTI -He does have chronic indwelling Pereira catheter. -BCx NGTD. UCx growing EColi with ESBL -Levaquin was started but changed to Ertapenem on 08/09 -WBC was 26 on admission; WBC down to 11K (3) Hypertension: Qualifiers: Hypertension type: unspecified Qualified Code(s): I10 - Essential (primary) hypertension Code(s): I10 - Essential (primary) hypertension Status: Chronic Assessment and Plan: Patient's blood pressure was reviewed on 08/12 Blood pressure remains well controlled. Will continue current medications. (4) Chronic obstructive pulmonary disease: Code(s): J44.9 - Chronic obstructive pulmonary disease, unspecified Status: Acute Assessment and Plan: No wheezing. Remains on room air -continue with albuterol. -continue Anoro Ellipta (5) CHF (congestive heart failure): Code(s): I50.9 - Heart failure, unspecified Status: Chronic Assessment and Plan: Hx of CHF. Echo in December showing EF 55-60% with Grade I diastolic dysfunction. Patient has acute on chronic diastolic CHF -he has becoming quite edematous -Lasix is on hold due to OLIVER -Bumex being used prn. Resume lasix when close to dry weight (6) Atrial fibrillation: Code(s): I48.91 - Unspecified atrial fibrillation Status: Acute Assessment and Plan: Patient with hx of AFib. EKG showing normal sinus rhythm -continue with Eliquis -continue with diltiazem for rate control (7) Anemia: Code(s): D64.9 - Anemia, unspecified Status: Acute Assessment and Plan: Hgb 13 on admission but has dropped to 8.1 -no evidence of acute blood loss. -check stool guaiac -transfuse as needed -follow (8) Hypothyroid: Code(s): E03.9 - Hypothyroidism, unspecified Status: Acute Assessment and Plan: TSH noted. Continue with levothyroxine. (9) Renal mass: Code(s): N28.89 - Other specified disorders of kidney and ureter Status: Acute Assessment and Plan: 6.8cm rim calcified left renal lesion likely proteinaceous/hemorrhagic cyst. No change since 12/25/2021. Unable to do an MRI or CT with contrast at this time due to renal failure. Can be further evaluate as outpatient Plan Palpitation - this is longstanding. He does have a history of AFib. This is probably bouts of AFib with RVR. No further symptoms and nothing on telemetry. stop tele Hypocalcemia - calcium was low but okay with correction with the low albumin. Will continue to monitor for now. Hyponatremia - felt related to the fluid overload.follow Neuropathy pain - Reviewed the chart. He does have Chester and Lyrica both ordered at the assisted. Stop Gabapentin
[2022-08-12 19:46] LABS: Anti Streptolysin O Screen 99 IU/mL (<200)
[2022-08-12] MEDS: LORATADINE 10 MG TABLET PO (20:39)
[2022-08-12 20:56] LABS: Anti Glomerular Basement Memb <1.0 AI (<1.0)
[2022-08-12 23:48] LABS: IFOB Positive Control Positive; Immunochemical Fecal Occult Bl Positive (N)
[2022-08-13 04:25] VITALS: BP 133/50; PULSE 58; RESP 16; TEMP 36.8; O2SAT 91
[2022-08-13] MEDS: dilTIAZem HCL 30 MG TABLET PO ×3 (05:11→21:36)
[2022-08-13] MEDS: LEVOTHYROXINE SODIUM 12.5 MCG TABLET PO (05:11)
[2022-08-13 06:28] LABS: Basophils Percent Auto 0.2 % (0.2-1.2); Eosinophils Percent Auto 0.3 % (0-4.4); Hematocrit 25.3 % (42.0-52.0); Immature Granulocyte Absolute 0.18 K/mm3 (0.00-0.031); Immature Granulocyte Percent A 1.5 % (0-0.5); Lymphocytes Percent Auto 12.5 % (18.3-44.2); Mean Corpuscular HGB Conc 31.6 g/dl (32-36); Mean Corpuscular Hemoglobin 26.3 pg (26-34); Mean Corpuscular Volume 83.2 fl (80-100); Mean Platelet Volume 10.1 fl (7.4-10.4); Monocytes Absolute Auto 0.9 K/mm3 (0.1-0.6); Monocytes Percent Auto 7.1 % (2.6-8.5); Neutrophils Absolute Auto 9.5 K/mm3 (1.3-6.7); Neutrophils Percent Auto 78.4 % (45.5-73.1); Platelet Count Result 209 k/mm3 (150-375); Red Blood Count 3.04 M/mm3 (4.6-6.20); Red Cell Distribution Width 15.9 % (11.5-14.5)
[2022-08-13 06:42] LABS: Anion Gap 6 mmol/L (8-16); Blood Urea Nitrogen 56 mg/dL (9-20); Calcium 7.2 mg/dL (8.4-10.2); Carbon Dioxide 22 mmol/L (22-30); Chloride 109 mmol/L (98-107); Estimated CRCL calculation 49 ml/min; Estimated Glomerular Filt Rate 35; Glucose 107 mg/dL (65-110); Magnesium 1.7 mg/dL (1.6-2.3); Phosphorus 3.9 mg/dL (2.5-4.5); Potassium 4.8 mmol/L (3.4-5.0); Sodium 137 mmol/L (137-145)
--- NOTE | 2022-08-13 08:39 | PM.IMPN ---
Progress Note: A&P Assessment and Plan (1) Acute on chronic renal failure: Qualifiers: Acute renal failure type: with acute tubular necrosis Chronic kidney disease stage: stage 3 (moderate) Chronic kidney disease stage 3 subtype: unspecified whether 3a or 3b Qualified Code(s): N17.0 - Acute kidney failure with tubular necrosis; N18.30 - Chronic kidney disease, stage 3 unspecified Code(s): N17.9 - Acute kidney failure, unspecified; N18.9 - Chronic kidney disease, unspecified Status: Acute Assessment and Plan: Creatinine 1.9 today, closer to baseline, suspect AIN with systemic eosinophilia and rash. Appreciate nephrology consultation (2) UTI (urinary tract infection) due to urinary indwelling catheter: Code(s): T83.511A - Infection and inflammatory reaction due to indwelling urethral catheter, initial encounter; N39.0 - Urinary tract infection, site not specified Status: Acute Assessment and Plan: UTI with chronic indwelling Cowan catheter. BCx NGTD. UCx growing EColi with ESBL Levaquin was started but changed to Ertapenem on 08/09 WBC was 26 on admission; WBC down to 12K (3) Hypertension: Qualifiers: Hypertension type: unspecified Qualified Code(s): I10 - Essential (primary) hypertension Code(s): I10 - Essential (primary) hypertension Status: Chronic Assessment and Plan: Stable, continue home meds (4) Chronic obstructive pulmonary disease: Code(s): J44.9 - Chronic obstructive pulmonary disease, unspecified Status: Acute Assessment and Plan: Stable, continue home meds (5) CHF (congestive heart failure): Code(s): I50.9 - Heart failure, unspecified Status: Chronic Assessment and Plan: Echo in December 2021 showing EF 55-60% with Grade I diastolic dysfunction. Patient has acute on chronic diastolic CHF Continue IV diuresis per Nephrology (6) Atrial fibrillation: Code(s): I48.91 - Unspecified atrial fibrillation Status: Acute Assessment and Plan: Continue Eliquis and diltiazem, currently in sinus rhythm (7) Anemia: Code(s): D64.9 - Anemia, unspecified Status: Acute Assessment and Plan: Monitor, hemoglobin stable at 8 (8) Hypothyroid: Code(s): E03.9 - Hypothyroidism, unspecified Status: Acute Assessment and Plan: TSH noted. Continue with levothyroxine. (9) Renal mass: Code(s): N28.89 - Other specified disorders of kidney and ureter Status: Acute Assessment and Plan: 6.8cm rim calcified left renal lesion likely proteinaceous/hemorrhagic cyst. No change since 12/25/2021. Unable to do an MRI or CT with contrast at this time due to renal failure. Can be further evaluate as outpatient Plan Palpitation - this is longstanding. He does have a history of AFib. This is probably bouts of AFib with RVR. No further symptoms and nothing on telemetry. stop tele Hypocalcemia - calcium was low but okay with correction with the low albumin. Will continue to monitor for now. Hyponatremia - felt related to the fluid overload. follow Neuropathy pain - Reviewed the chart. He does have [place] and [facility] Stop Gabapentin DVT prophylaxis with Eliquis GI prophylaxis not indicated Code status full code Subjective Date/time seen: 08/13/22 08:39 Interval history: 71yo male with AFib, CHF, HTN, CKD and chronic indwelling cowan here for fatigue. No overnight events noted. No chest pain. No nausea, vomiting or diarrhea. No fevers or chills. He is complaining of some shortness of breath, a little better than yesterday. Review of Systems Review of Systems: 12 point review of systems was assessed and was negative except as noted in the HPI Exam Narrative: General: No acute distress, alert and oriented per baseline HEENT: Atraumatic, normocephalic, mucous membranes moist CV: Regular r
[2022-08-13] MEDS: BUDESONIDE RESPULE NEB 0.5 MG/2 ML AMP INHALATION (09:57)
[2022-08-13] MEDS: ALBUTEROL SULFATE NEB 2.5 MG/3 ML INH INHALATION (09:57)
[2022-08-13 09:58] VITALS: PULSE 66; RESP 18; O2SAT 91
[2022-08-13] MEDS: UMECLIDINIUM/VILANTEROL 62.5-25 MCG ELLIPTA 1 PUFF INHALATION (09:58)
[2022-08-13] MEDS: SODIUM BICARBONATE TAB 650 MG TABLET PO ×2 (10:04→16:54)
[2022-08-13] MEDS: MAGNESIUM OXIDE 400 MG TABLET PO (10:04)
[2022-08-13] MEDS: FLUTICASONE PROPIONATE 0.05% NA SPR 16 GM BTL (*BKC) 1 SPRAY NASAL (10:04)
[2022-08-13] MEDS: PANTOPRAZOLE 40 MG TABLET PO (10:04)
[2022-08-13] MEDS: FERROUS SULFATE 324 MG TABLET PO (10:04)
[2022-08-13] MEDS: ATORVASTATIN 10 MG TABLET PO (10:05)
[2022-08-13] MEDS: BACLOFEN 10 MG TABLET PO ×2 (10:05→16:54)
[2022-08-13] MEDS: predniSONE 20 MG TABLET 40 MG PO (10:05)
[2022-08-13] MEDS: APIXABAN 2.5 MG TABLET PO ×2 (10:05→21:36)
[2022-08-13] MEDS: PREGABALIN (*CRX) 75 MG CAPSULE PO ×2 (10:05→16:55)
[2022-08-13] MEDS: CYANOCOBALAMIN 1,000 MCG TABLET 1000 MCG PO (10:05)
[2022-08-13] MEDS: guaiFENesin 12 HR 600 MG TABCR PO ×2 (10:05→21:36)
[2022-08-13] MEDS: EUCERIN CREAM 120 GM JAR 1 APPLIC TOPICAL (10:06)
[2022-08-13 10:21] VITALS: PULSE 64; RESP 18
[2022-08-13] MEDS: ERTAPENEM SODIUM 1 GM in SODIUM CHLORIDE 0.9% IV 50 ML IVPB (12:04)
--- NOTE | 2022-08-13 12:29 | P.PNNP_ITS ---
Progress Note: A&P Assessment and Plan (1) OLIVER (acute kidney injury): Code(s): N17.9 - Acute kidney failure, unspecified Status: Acute Assessment and Plan: * presumably due to acute infection/UTI * however, AIN may be strong possibility: * diffuse rash * peripheral eosinophilia (worse on admission but present for the last 6 months) * etiology? -- eosinophilia doing better now * on trial of steroids -- ok to to taper off on discharge * PRN IV diuretics as needed but okay to restart of oral diuretics * follow repeat labs and UOP (2) Chronic kidney disease, stage 3: Qualifiers: Chronic kidney disease stage 3 subtype: stage 3b (GFR 30-44) Qualified Code(s): N18.32 - Chronic kidney disease, stage 3b Code(s): N18.30 - Chronic kidney disease, stage 3 unspecified Status: Chronic Assessment and Plan: * creatinine had been running ~ 1.7 - 2.2mg/d * this would cause him to CKD stage 3b * probably from his HTN, vascular disease, and age (3) Acute UTI: Code(s): N39.0 - Urinary tract infection, site not specified Status: Acute Assessment and Plan: * culture with E.coli (ESBL) * on IV antibiotics * WBC improving (4) Hypertension: Qualifiers: Hypertension type: unspecified Qualified Code(s): I10 - Essential (primary) hypertension Code(s): I10 - Essential (primary) hypertension Status: Chronic Assessment and Plan: * reasonable control * follow trend of hemodynamics (5) CHF (congestive heart failure): Code(s): I50.9 - Heart failure, unspecified Status: Chronic Assessment and Plan: * appears compensated * diuretics PRN * follow respiratory status Will continue to follow. Subjective Date/time seen: 08/13/22 12:29 Appears to be doing quite well -- renal function contines to improve with reasonable urine output; rash appears to be resolving with steroid therapy as well; no apparent distress voiced at the time of my visit. Exam Narrative: General: Large male in NAD Heart: IRRR, normal S1 and S2; no rub Lungs: clear to auscultation Abdomen: soft, nontender, nondistended, positive bowel sounds; + colostomy Extremities: no cyanosis or clubbing; 1+ edema Skin: rash doing better Objective Data Vital Signs Vital Signs: Vital Signs Temp Pulse Resp BP Pulse Ox O2 Del Method 08/13/22 10:05 Room Air 08/13/22 10:21 64 18 08/13/22 09:58 66 18 08/13/22 09:58 91 Room Air 08/13/22 04:25 98.2 F 58 L 16 133/50 L 91 08/12/22 22:35 98.1 F 62 16 124/44 L 92 08/12/22 21:13 76 18 08/12/22 21:04 94 Room Air 08/12/22 20:59 80 18 08/12/22 16:00 61 08/12/22 15:20 97.3 F L 62 18 117/52 L 93 Intake/Output Intake/Output: Intake & Output 08/10/22 08/11/22 08/12/22 08/13/22 23:59 23:59 23:59 23:59 Intake Total 2600 1730 1210 240 Output Total 1999 2150 3550 1150 Balance 379 -994 -1435 -024 Meds/Results Medications: Active Medications Generic Name Dose Route Start Last Admin Trade Name Freq PRN Reason Stop Dose Admin Acetaminophen
--- NOTE | 2022-08-13 12:29 | PM.PNNEP ---
Progress Note: A&P Assessment and Plan (1) OLIVER (acute kidney injury): Code(s): N17.9 - Acute kidney failure, unspecified Status: Acute Assessment and Plan: presumably due to acute infection/UTI however, AIN may be strong possibility: diffuse rash peripheral eosinophilia (worse on admission but present for the last 6 months) etiology? -- eosinophilia doing better now on trial of steroids -- ok to to taper off on discharge PRN IV diuretics as needed but okay to restart of oral diuretics follow repeat labs and UOP (2) Chronic kidney disease, stage 3: Qualifiers: Chronic kidney disease stage 3 subtype: stage 3b (GFR 30-44) Qualified Code(s): N18.32 - Chronic kidney disease, stage 3b Code(s): N18.30 - Chronic kidney disease, stage 3 unspecified Status: Chronic Assessment and Plan: creatinine had been running ~ 1.7 - 2.2mg/d this would cause him to CKD stage 3b probably from his HTN, vascular disease, and age (3) Acute UTI: Code(s): N39.0 - Urinary tract infection, site not specified Status: Acute Assessment and Plan: culture with E.coli (ESBL) on IV antibiotics WBC improving (4) Hypertension: Qualifiers: Hypertension type: unspecified Qualified Code(s): I10 - Essential (primary) hypertension Code(s): I10 - Essential (primary) hypertension Status: Chronic Assessment and Plan: reasonable control follow trend of hemodynamics (5) CHF (congestive heart failure): Code(s): I50.9 - Heart failure, unspecified Status: Chronic Assessment and Plan: appears compensated diuretics PRN follow respiratory status Will continue to follow. Subjective Date/time seen: 08/13/22 12:29 Appears to be doing quite well -- renal function contines to improve with reasonable urine output; rash appears to be resolving with steroid therapy as well; no apparent distress voiced at the time of my visit. Exam Narrative: General: Large male in NAD Heart: IRRR, normal S1 and S2; no rub Lungs: clear to auscultation Abdomen: soft, nontender, nondistended, positive bowel sounds; + colostomy Extremities: no cyanosis or clubbing; 1+ edema Skin: rash doing better Objective Data Vital Signs Vital Signs: Vital Signs Temp Pulse Resp BP Pulse Ox O2 Del Method 08/13/22 10:05 Room Air 08/13/22 10:21 64 18 08/13/22 09:58 66 18 08/13/22 09:58 91 Room Air 08/13/22 04:25 98.2 F 58 L 16 133/50 L 91 08/12/22 22:35 98.1 F 62 16 124/44 L 92 08/12/22 21:13 76 18 08/12/22 21:04 94 Room Air 08/12/22 20:59 80 18 08/12/22 16:00 61 08/12/22 15:20 97.3 F L 62 18 117/52 L 93 Intake/Output Intake/Output: Intake & Output 08/10/22 08/11/22 08/12/22 08/13/22 23:59 23:59 23:59 23:59 Intake Total 2600 1730 1210 240 Output Total 1999 2150 3550 1150 Balance 604 -403 -7262 -607 Meds/Results Medications: Active Medications Generic Name Dose Route Start Last Admin Trade Name Denisa PRN Reason Stop Dose Admin Acetaminophen 650 mg 08/08/22 01:54 Acetaminophen 325 Mg Tablet PO Q6-8H PRN Pain Rated 1-3 Albuterol 2.5 mg 08/08/22 08:00 08/13/22 09:57 Albuterol Sulfate Neb 2.5 Mg/3 Ml Inh INHALATION 2.5 mg Q12HRT VAIBHAV Administration Albuterol 2 puff 08/08/22 01:54 Albuterol Sulfate (*Sp) Aerosol 1 Puff INHALATION QID PRN Shortness Of Breath Or Wheezing Apixaban 2.5 mg 08/08/22 09:00 08/13/22 10:05 Apixaban 2.5 Mg Tablet PO 2.5 mg Q12HR VAIBHAV Administration Atorvastatin Calcium 10 mg 08/08/22 09:00 08/13/22 10:05 Atorvastatin 10 Mg Tablet PO 10 mg DAILY VAIBHAV Administration Baclofen 10 mg 08/08/22 09:00 08/13/22 10:05 Baclofen 10 Mg Tablet PO 10 mg BID VAIBHAV Administration Budesonide 0.5 mg 08/08/22 08:00 08/13/22 09:57 Budesonide Respul
[2022-08-13 13:44] LABS: Complement Total CH50 >60 U/mL (31-60)
[2022-08-13 14:00] VITALS: BP 161/46; PULSE 76; RESP 18; TEMP 36.4; O2SAT 92
[2022-08-13 19:41] LABS: Strep DNASE B Antibody <95 U/mL (<301)
[2022-08-13 20:00] VITALS: O2SAT 91
[2022-08-13 21:09] LABS: Osmolality, Urine 420 mOsm/kg (50-1200)
[2022-08-13] MEDS: LORATADINE 10 MG TABLET PO (21:36)
[2022-08-13 22:00] VITALS: BP 155/59; PULSE 72; RESP 18; TEMP 36.8; O2SAT 91
[2022-08-14] VITALS (10 sets, daily range): BP systolic 129–172; BP diastolic 57–59; PULSE 67–92; RESP 18; TEMP 36.3–36.9; O2SAT 86–91
[2022-08-14] MEDS: BUDESONIDE RESPULE NEB 0.5 MG/2 ML AMP INHALATION ×3 (00:09→21:55)
[2022-08-14] MEDS: ALBUTEROL SULFATE NEB 2.5 MG/3 ML INH INHALATION ×3 (00:11→21:56)
[2022-08-14] MEDS: dilTIAZem HCL 30 MG TABLET PO ×3 (05:39→21:39)
[2022-08-14] MEDS: LEVOTHYROXINE SODIUM 12.5 MCG TABLET PO (05:39)
[2022-08-14] MEDS: PANTOPRAZOLE 40 MG TABLET PO (09:46)
[2022-08-14] MEDS: SODIUM BICARBONATE TAB 650 MG TABLET PO ×2 (09:46→17:21)
[2022-08-14] MEDS: MAGNESIUM OXIDE 400 MG TABLET PO (09:46)
[2022-08-14] MEDS: FERROUS SULFATE 324 MG TABLET PO (09:46)
[2022-08-14] MEDS: CYANOCOBALAMIN 1,000 MCG TABLET 1000 MCG PO (09:46)
[2022-08-14] MEDS: guaiFENesin 12 HR 600 MG TABCR PO ×2 (09:46→21:39)
[2022-08-14] MEDS: APIXABAN 2.5 MG TABLET PO ×2 (09:46→21:40)
[2022-08-14] MEDS: predniSONE 20 MG TABLET 40 MG PO (09:46)
[2022-08-14] MEDS: ATORVASTATIN 10 MG TABLET PO (09:47)
[2022-08-14] MEDS: FLUTICASONE PROPIONATE 0.05% NA SPR 16 GM BTL (*BKC) 1 SPRAY NASAL (09:47)
[2022-08-14] MEDS: ERGOCALCIFEROL 50,000 UNITS CAPSULE 50000 UNITS PO (09:47)
[2022-08-14] MEDS: BACLOFEN 10 MG TABLET PO ×2 (09:47→17:21)
[2022-08-14] MEDS: EUCERIN CREAM 120 GM JAR 1 APPLIC TOPICAL (09:48)
[2022-08-14] MEDS: PREGABALIN (*CRX) 75 MG CAPSULE PO ×2 (09:50→17:21)
--- NOTE | 2022-08-14 10:21 | PM.IMPN ---
Progress Note: A&P Assessment and Plan (1) Acute on chronic renal failure: Qualifiers: Acute renal failure type: with acute tubular necrosis Chronic kidney disease stage: stage 3 (moderate) Chronic kidney disease stage 3 subtype: unspecified whether 3a or 3b Qualified Code(s): N17.0 - Acute kidney failure with tubular necrosis; N18.30 - Chronic kidney disease, stage 3 unspecified Code(s): N17.9 - Acute kidney failure, unspecified; N18.9 - Chronic kidney disease, unspecified Status: Acute Assessment and Plan: Creatinine 1.9 today, closer to baseline, suspect AIN with systemic eosinophilia and rash. Appreciate nephrology consultation (2) UTI (urinary tract infection) due to urinary indwelling catheter: Code(s): T83.511A - Infection and inflammatory reaction due to indwelling urethral catheter, initial encounter; N39.0 - Urinary tract infection, site not specified Status: Acute Assessment and Plan: UTI with chronic indwelling Cowan catheter. BCx NGTD. UCx growing EColi with ESBL Levaquin was started but changed to Ertapenem on 08/09 WBC was 26 on admission; WBC worsening to 16 today for unknown etiology LFTs worsening as well (3) Hypertension: Qualifiers: Hypertension type: unspecified Qualified Code(s): I10 - Essential (primary) hypertension Code(s): I10 - Essential (primary) hypertension Status: Chronic Assessment and Plan: Stable, continue home meds (4) Chronic obstructive pulmonary disease: Code(s): J44.9 - Chronic obstructive pulmonary disease, unspecified Status: Acute Assessment and Plan: Stable, continue home meds (5) CHF (congestive heart failure): Code(s): I50.9 - Heart failure, unspecified Status: Chronic Assessment and Plan: Echo in December 2021 showing EF 55-60% with Grade I diastolic dysfunction. Patient has acute on chronic diastolic CHF Continue IV diuresis per Nephrology (6) Atrial fibrillation: Code(s): I48.91 - Unspecified atrial fibrillation Status: Acute Assessment and Plan: Continue Eliquis and diltiazem, currently in sinus rhythm (7) Anemia: Code(s): D64.9 - Anemia, unspecified Status: Acute Assessment and Plan: Monitor, hemoglobin stable at 8 (8) Hypothyroid: Code(s): E03.9 - Hypothyroidism, unspecified Status: Acute Assessment and Plan: TSH noted. Continue with levothyroxine. (9) Renal mass: Code(s): N28.89 - Other specified disorders of kidney and ureter Status: Acute Assessment and Plan: 6.8cm rim calcified left renal lesion likely proteinaceous/hemorrhagic cyst. No change since 12/25/2021. Unable to do an MRI or CT with contrast at this time due to renal failure. Can be further evaluate as outpatient (10) Anxiety: Code(s): F41.9 - Anxiety disorder, unspecified Status: Acute Assessment and Plan: ativan as needed, restoril to sleep Plan DVT prophylaxis with Eliquis GI prophylaxis not indicated Code status full code Subjective Date/time seen: 08/14/22 10:22 Interval history: 71yo male with AFib, CHF, HTN, CKD and chronic indwelling cowan here for fatigue. No overnight events noted. No chest pain or shortness of breath. No nausea, vomiting or diarrhea. No fevers or chills. He thinks the shortness of breath he had yesterday was actually secondary to anxiety is requesting something for his anxiety. Review of Systems Review of Systems: 12 point review of systems was assessed and was negative except as noted in the HPI Exam Narrative: General: No acute distress, alert and oriented per baseline HEENT: Atraumatic, normocephalic, mucous membranes moist CV: Regular rate and rhythm, S1, S2 Lungs: Clear to auscultation bilaterally, no rales or crackles noted, no wheezes, good air entry Abdomen: Soft, nontender, nondistended, colostomy bag no
[2022-08-14] MEDS: UMECLIDINIUM/VILANTEROL 62.5-25 MCG ELLIPTA 1 PUFF INHALATION (10:45)
[2022-08-14 11:03] LABS: Basophils Percent Auto 0.3 % (0.2-1.2); Eosinophils Absolute Auto 0.2 K/mm3 (0-0.3); Hematocrit 28.8 % (42.0-52.0); Hemoglobin 9.1 g/dL (14.0-18.0); Immature Granulocyte Absolute 0.28 K/mm3 (0.00-0.031); Immature Granulocyte Percent A 1.8 % (0-0.5); Lymphocytes Absolute Auto 1.53 K/mm3 (0.9-3.2); Lymphocytes Percent Auto 9.6 % (18.3-44.2); Mean Corpuscular HGB Conc 31.6 g/dl (32-36); Mean Corpuscular Hemoglobin 26.4 pg (26-34); Mean Corpuscular Volume 83.5 fl (80-100); Mean Platelet Volume 9.6 fl (7.4-10.4); Monocytes Absolute Auto 1.6 K/mm3 (0.1-0.6); Neutrophils Absolute Auto 12.4 K/mm3 (1.3-6.7); Neutrophils Percent Auto 77.3 % (45.5-73.1); Platelet Count Result 227 k/mm3 (150-375); Red Blood Count 3.45 M/mm3 (4.6-6.20); Red Cell Distribution Width 16.1 % (11.5-14.5)
[2022-08-14 11:20] LABS: Alanine Aminotransferase 117 U/L (6-50); Albumin Level 3.6 g/dL (3.5-5.1); Alkaline Phosphatase 226 U/L (38-126); Anion Gap 6 mmol/L (8-16); Aspartate Amino Transferase 76 U/L (17-59); Bilirubin,Total 0.6 mg/dL (0.2-1.3); Blood Urea Nitrogen 49 mg/dL (9-20); Calcium 7.8 mg/dL (8.4-10.2); Carbon Dioxide 24 mmol/L (22-30); Chloride 107 mmol/L (98-107); Estimated CRCL calculation 49 ml/min; Estimated Glomerular Filt Rate 35; Glucose 123 mg/dL (65-110); Potassium 4.3 mmol/L (3.4-5.0); Sodium 137 mmol/L (137-145)
[2022-08-14] MEDS: ERTAPENEM SODIUM 1 GM in SODIUM CHLORIDE 0.9% IV 50 ML IVPB (11:59)
--- NOTE | 2022-08-14 13:00 | PM.PNNEP ---
Progress Note: A&P Assessment and Plan (1) OLIVER (acute kidney injury): Code(s): N17.9 - Acute kidney failure, unspecified Status: Acute Assessment and Plan: resolving presumably due to acute infection/UTI however, AIN may be strong possibility: diffuse rash on presentation peripheral eosinophilia (worse on admission but present for the last 6 months) etiology? -- eosinophilia doing better now on trial of steroids -- ok to to start tapering PRN IV diuretics as needed but okay to restart of oral diuretics follow repeat labs and UOP (2) Chronic kidney disease, stage 3: Qualifiers: Chronic kidney disease stage 3 subtype: stage 3b (GFR 30-44) Qualified Code(s): N18.32 - Chronic kidney disease, stage 3b Code(s): N18.30 - Chronic kidney disease, stage 3 unspecified Status: Chronic Assessment and Plan: creatinine had been running ~ 1.7 - 2.2mg/d this would cause him to CKD stage 3b probably from his HTN, vascular disease, and age (3) Acute UTI: Code(s): N39.0 - Urinary tract infection, site not specified Status: Acute Assessment and Plan: culture with E.coli (ESBL) on IV antibiotics WBC improving (4) Hypertension: Qualifiers: Hypertension type: unspecified Qualified Code(s): I10 - Essential (primary) hypertension Code(s): I10 - Essential (primary) hypertension Status: Chronic Assessment and Plan: reasonable control follow trend of hemodynamics (5) CHF (congestive heart failure): Code(s): I50.9 - Heart failure, unspecified Status: Chronic Assessment and Plan: probably okay to resume oral diuretics IV diuretics PRN follow respiratory status Will continue to follow. Subjective Date/time seen: 08/14/22 13:00 No major complaints voiced at this time; he does admit to some mild shortness at times; rash appears to have resolved with steroid therapy; no apparent distress to report; no other issues/events to report earlier this morning or overnight. Exam Narrative: General: Large male in NAD Heart: IRRR, normal S1 and S2; no rub Lungs: clear to auscultation Abdomen: soft, nontender, nondistended, positive bowel sounds; + colostomy Extremities: no cyanosis or clubbing; 1+ edema Skin: rash doing better Objective Data Vital Signs Vital Signs: Vital Signs Temp Pulse Resp BP Pulse Ox O2 Del Method 08/14/22 13:00 90 Room Air 08/14/22 10:53 70 18 08/14/22 10:43 75 18 08/14/22 06:00 97.5 F L 68 18 129/57 L 91 08/14/22 00:12 67 18 08/14/22 00:12 91 Room Air 08/13/22 20:00 91 Room Air 08/13/22 22:00 98.2 F 72 18 155/59 H 91 Intake/Output Intake/Output: Intake & Output 08/11/22 08/12/22 08/13/22 08/14/22 23:59 23:59 23:59 23:59 Intake Total 1730 1210 1120 972 Output Total 2150 3550 2800 2550 Balance -798 -7026 -1680 -1208 Meds/Results Medications: Active Medications Generic Name Dose Route Start Last Admin Trade Name Freq PRN Reason Stop Dose Admin Acetaminophen 650 mg 08/08/22 01:54 Acetaminophen 325 Mg Tablet PO Q6-8H PRN Pain Rated 1-3 Albuterol 2.5 mg 08/08/22 08:00 08/14/22 10:44 Albuterol Sulfate Neb 2.5 Mg/3 Ml Inh INHALATION 2.5 mg Q12HRT VAIBHAV Administration Albuterol 2 puff 08/08/22 01:54 Albuterol Sulfate (*Sp) Aerosol 1 Puff INHALATION QID PRN Shortness Of Breath Or Wheezing Apixaban 2.5 mg 08/08/22 09:00 08/14/22 09:46 Apixaban 2.5 Mg Tablet PO 2.5 mg Q12HR VAIBHAV Administration Atorvastatin Calcium 10 mg 08/08/22 09:00 08/14/22 09:47 Atorvastatin 10 Mg Tablet PO 10 mg DAILY VAIBHAV Administration Baclofen 10 mg 08/08/22 09:00 08/14/22 09:47 Baclofen 10 Mg Tablet PO 10 mg BID VAIBHAV Administration Budesonide 0.5 mg 08/08/22 08:00 08/14/22 10:44 Budesonide Respule Neb 0.5 Mg/2 Ml Amp INHAL
--- NOTE | 2022-08-14 13:00 | P.PNNP_ITS ---
Progress Note: A&P Assessment and Plan (1) OLIVER (acute kidney injury): Code(s): N17.9 - Acute kidney failure, unspecified Status: Acute Assessment and Plan: * resolving * presumably due to acute infection/UTI * however, AIN may be strong possibility: * diffuse rash on presentation * peripheral eosinophilia (worse on admission but present for the last 6 months) * etiology? -- eosinophilia doing better now * on trial of steroids -- ok to to start tapering * PRN IV diuretics as needed but okay to restart of oral diuretics * follow repeat labs and UOP (2) Chronic kidney disease, stage 3: Qualifiers: Chronic kidney disease stage 3 subtype: stage 3b (GFR 30-44) Qualified Code(s): N18.32 - Chronic kidney disease, stage 3b Code(s): N18.30 - Chronic kidney disease, stage 3 unspecified Status: Chronic Assessment and Plan: * creatinine had been running ~ 1.7 - 2.2mg/d * this would cause him to CKD stage 3b * probably from his HTN, vascular disease, and age (3) Acute UTI: Code(s): N39.0 - Urinary tract infection, site not specified Status: Acute Assessment and Plan: * culture with E.coli (ESBL) * on IV antibiotics * WBC improving (4) Hypertension: Qualifiers: Hypertension type: unspecified Qualified Code(s): I10 - Essential (primary) hypertension Code(s): I10 - Essential (primary) hypertension Status: Chronic Assessment and Plan: * reasonable control * follow trend of hemodynamics (5) CHF (congestive heart failure): Code(s): I50.9 - Heart failure, unspecified Status: Chronic Assessment and Plan: * probably okay to resume oral diuretics * IV diuretics PRN * follow respiratory status Will continue to follow. Subjective Date/time seen: 08/14/22 13:00 No major complaints voiced at this time; he does admit to some mild shortness at times; rash appears to have resolved with steroid therapy; no apparent distress to report; no other issues/events to report earlier this morning or overnight. Exam Narrative: General: Large male in NAD Heart: IRRR, normal S1 and S2; no rub Lungs: clear to auscultation Abdomen: soft, nontender, nondistended, positive bowel sounds; + colostomy Extremities: no cyanosis or clubbing; 1+ edema Skin: rash doing better Objective Data Vital Signs Vital Signs: Vital Signs Temp Pulse Resp BP Pulse Ox O2 Del Method 08/14/22 13:00 90 Room Air 08/14/22 10:53 70 18 08/14/22 10:43 75 18 08/14/22 06:00 97.5 F L 68 18 129/57 L 91 08/14/22 00:12 67 18 08/14/22 00:12 91 Room Air 08/13/22 20:00 91 Room Air 08/13/22 22:00 98.2 F 72 18 155/59 H 91 Intake/Output Intake/Output: Intake & Output 08/11/22 08/12/22 08/13/22 08/14/22 23:59 23:59 23:59 23:59 Intake Total 1730 1210 1120 972 Output Total 2150 3550 2800 2550 Balance -466 -9699 -9725 -7646 Meds/Results Medications: Active Medications Generic Name Dose Route Start Last Admin Trade Name Denisa PRN Reason Stop Dose Admin Acetaminophen 650 mg 08/08/22 01:54 Acetaminophen 325 M
[2022-08-14 13:36] LABS: Immunoglobulin G, Serum 1269 mg/dL (600-1540); Immunoglobulin G1 813 mg/dL (382-929); Immunoglobulin G2 137 mg/dL (241-700); Immunoglobulin G3 18 mg/dL (22-178); Immunoglobulin G4 15.5 mg/dL (4.0-86.0)
[2022-08-14 15:13] LABS: Procalcitonin 0.3 ng/mL
[2022-08-14] MEDS: LORazepam (*CRX) 0.5 MG TABLET PO (17:21)
[2022-08-14] MEDS: LORATADINE 10 MG TABLET PO (21:41)
[2022-08-14] MEDS: TEMAZEPAM (*CRX) 15 MG CAPSULE PO (21:52)
[2022-08-14] MEDS: BUMETANIDE INJ 1 MG/4 ML VIAL 1.5 MG IV PUSH (23:07)
[2022-08-15] MEDS: BUMETANIDE INJ 1 MG/4 ML VIAL 2 MG (00:52)
--- NOTE | 2022-08-15 03:52 | PC.NURSE ---
Patient, with COPD and pulmonary edema, throughout the night has oxygen levels ranging from 74-89 percent. Highly recommended the use of oxygen on a low setting of 1 liter or use of a bipap machine, but patient refused. Contacted charge nurse, Janak Gunter, and she provided additional education to patient about the importance of oxygen, patient begrudgingly accepted at that time. Approximately 10 minutes after applying oxygen with 1 liter patient removed and further stated his refusal. Night hospitalist, Dr. Barrios, contacted and no further orders are given.
[2022-08-15] MEDS: dilTIAZem HCL 30 MG TABLET PO ×3 (05:33→21:14)
[2022-08-15] MEDS: LEVOTHYROXINE SODIUM 12.5 MCG TABLET PO (05:33)
[2022-08-15 06:00] VITALS: BP 152/60; PULSE 62; RESP 18; TEMP 36.7; O2SAT 86
[2022-08-15 06:47] LABS: Basophils Percent Auto 0.2 % (0.2-1.2); Eosinophils Absolute Auto 0.1 K/mm3 (0-0.3); Eosinophils Percent Auto 0.6 % (0-4.4); Hematocrit 27.5 % (42.0-52.0); Hemoglobin 8.8 g/dL (14.0-18.0); Immature Granulocyte Absolute 0.19 K/mm3 (0.00-0.031); Immature Granulocyte Percent A 1.5 % (0-0.5); Lymphocytes Absolute Auto 1.42 K/mm3 (0.9-3.2); Lymphocytes Percent Auto 11.2 % (18.3-44.2); Mean Corpuscular Hemoglobin 26.7 pg (26-34); Mean Corpuscular Volume 83.3 fl (80-100); Mean Platelet Volume 9.5 fl (7.4-10.4); Monocytes Absolute Auto 1.3 K/mm3 (0.1-0.6); Monocytes Percent Auto 10.5 % (2.6-8.5); Neutrophils Absolute Auto 9.6 K/mm3 (1.3-6.7); Platelet Count Result 199 k/mm3 (150-375); Red Cell Distribution Width 15.9 % (11.5-14.5); White Blood Count 12.7 K/mm3 (4.5-10.0)
[2022-08-15 06:59] LABS: Alanine Aminotransferase 101 U/L (6-50); Albumin Level 3.4 g/dL (3.5-5.1); Alkaline Phosphatase 214 U/L (38-126); Anion Gap 3 mmol/L (8-16); Aspartate Amino Transferase 52 U/L (17-59); Bilirubin,Total 0.6 mg/dL (0.2-1.3); Blood Urea Nitrogen 48 mg/dL (9-20); Calcium 7.9 mg/dL (8.4-10.2); Carbon Dioxide 27 mmol/L (22-30); Chloride 106 mmol/L (98-107); Estimated CRCL calculation 51 ml/min; Estimated Glomerular Filt Rate 37; Glucose 99 mg/dL (65-110); Potassium 4.7 mmol/L (3.4-5.0); Sodium 136 mmol/L (137-145)
[2022-08-15] MEDS: ALBUTEROL SULFATE NEB 2.5 MG/3 ML INH INHALATION ×2 (07:52→20:20)
[2022-08-15] MEDS: BUDESONIDE RESPULE NEB 0.5 MG/2 ML AMP INHALATION ×2 (07:52→20:20)
[2022-08-15 07:57] VITALS: PULSE 76; RESP 18
[2022-08-15 08:11] VITALS: PULSE 80; RESP 18
[2022-08-15] MEDS: CYANOCOBALAMIN 1,000 MCG TABLET 1000 MCG PO (08:20)
[2022-08-15] MEDS: FERROUS SULFATE 324 MG TABLET PO (08:20)
[2022-08-15] MEDS: guaiFENesin 12 HR 600 MG TABCR PO (08:20)
[2022-08-15] MEDS: PANTOPRAZOLE 40 MG TABLET PO (08:20)
[2022-08-15] MEDS: ATORVASTATIN 10 MG TABLET PO (08:20)
[2022-08-15] MEDS: APIXABAN 2.5 MG TABLET PO ×2 (08:20→21:14)
[2022-08-15] MEDS: BACLOFEN 10 MG TABLET PO ×2 (08:21→16:31)
[2022-08-15] MEDS: FLUTICASONE PROPIONATE 0.05% NA SPR 16 GM BTL (*BKC) 1 SPRAY NASAL (08:21)
[2022-08-15] MEDS: SODIUM BICARBONATE TAB 650 MG TABLET PO (08:21)
[2022-08-15] MEDS: PREGABALIN (*CRX) 75 MG CAPSULE PO ×2 (08:21→16:31)
[2022-08-15] MEDS: MAGNESIUM OXIDE 400 MG TABLET PO (08:21)
[2022-08-15] MEDS: EUCERIN CREAM 120 GM JAR 1 APPLIC TOPICAL (08:22)
--- NOTE | 2022-08-15 11:09 | P.PNNP_ITS ---
Progress Note: A&P Assessment and Plan (1) OLIVER (acute kidney injury): Code(s): N17.9 - Acute kidney failure, unspecified Status: Acute Assessment and Plan: * resolving (if not resolved) * presumably due to acute infection/UTI * however, AIN may be strong possibility: * diffuse rash on presentation * peripheral eosinophilia (worse on admission but present for the last 6 months) * etiology? -- eosinophilia doing better now * on trial of steroids -- ok to stop/taper * PRN IV diuretics as needed but okay to restart of oral diuretics * follow repeat labs and UOP (2) Chronic kidney disease, stage 3: Qualifiers: Chronic kidney disease stage 3 subtype: stage 3b (GFR 30-44) Qualified Code(s): N18.32 - Chronic kidney disease, stage 3b Code(s): N18.30 - Chronic kidney disease, stage 3 unspecified Status: Chronic Assessment and Plan: * creatinine had been running ~ 1.7 - 2.2mg/d * this would cause him to CKD stage 3b * probably from his HTN, vascular disease, and age (3) Acute UTI: Code(s): N39.0 - Urinary tract infection, site not specified Status: Acute Assessment and Plan: * culture with E.coli (ESBL) * on IV antibiotics * WBC improving (4) Hypertension: Qualifiers: Hypertension type: unspecified Qualified Code(s): I10 - Essential (primary) hypertension Code(s): I10 - Essential (primary) hypertension Status: Chronic Assessment and Plan: * reasonable control * follow trend of hemodynamics (5) CHF (congestive heart failure): Code(s): I50.9 - Heart failure, unspecified Status: Chronic Assessment and Plan: * probably okay to resume oral diuretics * IV diuretics PRN * follow respiratory status Will continue to follow. Subjective Date/time seen: 08/15/22 11:09 Given CXR findings of worsening pulmonary edema in association with patient's complaints of shortness of breath, dosed with IV bumex yesterday afternoon with reasonably response; breathing seems to be doing a bit better; no other acute issues/complaints voiced. Exam Narrative: General: Large male in NAD Heart: IRRR, normal S1 and S2; no rub Lungs: clear to auscultation Abdomen: soft, nontender, nondistended, positive bowel sounds; + colostomy Extremities: no cyanosis or clubbing; 1+ edema Skin: rash resolving Objective Data Vital Signs Vital Signs: Vital Signs Temp Pulse Resp BP Pulse Ox O2 Del Method 08/15/22 08:00 Room Air 08/15/22 08:11 80 18 08/15/22 07:57 76 18 08/15/22 06:00 98.1 F 62 18 152/60 H 86 L 08/14/22 20:00 Room Air 08/14/22 22:00 98.5 F 70 18 146/57 H 86 L 08/14/22 22:03 69 18 08/14/22 21:50 88 18 08/14/22 21:58 92 91 Room Air 08/14/22 14:00 97.3 F L 92 18 172/59 H 91 08/14/22 13:12 90 Room Air Intake/Output Intake/Output: Intake & Output 08/12/22 08/13/22 08/14/22 08/15/22 23:59 23:59 23:59 23:59 Intake Total 1210 1120 1258 536 Output Total 3550 2800 3050 2800 Balance -6562 -3127 -8824 -5498 Meds/Results Medications: Active Medications
--- NOTE | 2022-08-15 11:09 | PM.PNNEP ---
Progress Note: A&P Assessment and Plan (1) OLIVER (acute kidney injury): Code(s): N17.9 - Acute kidney failure, unspecified Status: Acute Assessment and Plan: resolving (if not resolved) presumably due to acute infection/UTI however, AIN may be strong possibility: diffuse rash on presentation peripheral eosinophilia (worse on admission but present for the last 6 months) etiology? -- eosinophilia doing better now on trial of steroids -- ok to stop/taper PRN IV diuretics as needed but okay to restart of oral diuretics follow repeat labs and UOP (2) Chronic kidney disease, stage 3: Qualifiers: Chronic kidney disease stage 3 subtype: stage 3b (GFR 30-44) Qualified Code(s): N18.32 - Chronic kidney disease, stage 3b Code(s): N18.30 - Chronic kidney disease, stage 3 unspecified Status: Chronic Assessment and Plan: creatinine had been running ~ 1.7 - 2.2mg/d this would cause him to CKD stage 3b probably from his HTN, vascular disease, and age (3) Acute UTI: Code(s): N39.0 - Urinary tract infection, site not specified Status: Acute Assessment and Plan: culture with E.coli (ESBL) on IV antibiotics WBC improving (4) Hypertension: Qualifiers: Hypertension type: unspecified Qualified Code(s): I10 - Essential (primary) hypertension Code(s): I10 - Essential (primary) hypertension Status: Chronic Assessment and Plan: reasonable control follow trend of hemodynamics (5) CHF (congestive heart failure): Code(s): I50.9 - Heart failure, unspecified Status: Chronic Assessment and Plan: probably okay to resume oral diuretics IV diuretics PRN follow respiratory status Will continue to follow. Subjective Date/time seen: 08/15/22 11:09 Given CXR findings of worsening pulmonary edema in association with patient's complaints of shortness of breath, dosed with IV bumex yesterday afternoon with reasonably response; breathing seems to be doing a bit better; no other acute issues/complaints voiced. Exam Narrative: General: Large male in NAD Heart: IRRR, normal S1 and S2; no rub Lungs: clear to auscultation Abdomen: soft, nontender, nondistended, positive bowel sounds; + colostomy Extremities: no cyanosis or clubbing; 1+ edema Skin: rash resolving Objective Data Vital Signs Vital Signs: Vital Signs Temp Pulse Resp BP Pulse Ox O2 Del Method 08/15/22 08:00 Room Air 08/15/22 08:11 80 18 08/15/22 07:57 76 18 08/15/22 06:00 98.1 F 62 18 152/60 H 86 L 08/14/22 20:00 Room Air 08/14/22 22:00 98.5 F 70 18 146/57 H 86 L 08/14/22 22:03 69 18 08/14/22 21:50 88 18 08/14/22 21:58 92 91 Room Air 08/14/22 14:00 97.3 F L 92 18 172/59 H 91 08/14/22 13:12 90 Room Air Intake/Output Intake/Output: Intake & Output 08/12/22 08/13/22 08/14/22 08/15/22 23:59 23:59 23:59 23:59 Intake Total 1210 1120 1258 536 Output Total 3550 2800 3050 2800 Balance -8769 -0583 -8990 -2770 Meds/Results Medications: Active Medications Generic Name Dose Route Start Last Admin Trade Name Freq PRN Reason Stop Dose Admin Acetaminophen 650 mg 08/08/22 01:54 Acetaminophen 325 Mg Tablet PO Q6-8H PRN Pain Rated 1-3 Albuterol 2.5 mg 08/08/22 08:00 08/15/22 07:52 Albuterol Sulfate Neb 2.5 Mg/3 Ml Inh INHALATION 2.5 mg Q12HRT VAIBHAV Administration Albuterol 2 puff 08/08/22 01:54 Albuterol Sulfate (*Sp) Aerosol 1 Puff INHALATION QID PRN Shortness Of Breath Or Wheezing Apixaban 2.5 mg 08/08/22 09:00 08/15/22 08:20 Apixaban 2.5 Mg Tablet PO 2.5 mg Q12HR VAIBHAV Administration Atorvastatin Calcium 10 mg 08/08/22 09:00 08/15/22 08:20 Atorvastatin 10 Mg Tablet PO 10 mg DAILY VAIBHAV Administration Baclofen 10 mg 08/08/22 09:00 08/15/22 08:21 Baclofen 10 Mg T
[2022-08-15] MEDS: ERTAPENEM SODIUM 1 GM in SODIUM CHLORIDE 0.9% IV 50 ML IVPB (12:01)
[2022-08-15 13:36] LABS: Chloride Rand Ur 20 mmol/L (32-290); Chloride/Creatinine Rand Ur 11 (23-275); Creatinine Random Urine 178 mg/dL (20-320)
[2022-08-15 14:00] VITALS: BP 127/51; PULSE 72; RESP 18; TEMP 36.2; O2SAT 88
[2022-08-15] MEDS: MECLIZINE HCL 12.5 MG TABLET PO (16:35)
[2022-08-15] MEDS: LORazepam (*CRX) 0.5 MG TABLET PO ×2 (16:35→16:36)
--- NOTE | 2022-08-15 17:39 | PM.IMPN ---
Progress Note: A&P Assessment and Plan (1) Acute on chronic renal failure: Qualifiers: Acute renal failure type: with acute tubular necrosis Chronic kidney disease stage: stage 3 (moderate) Chronic kidney disease stage 3 subtype: unspecified whether 3a or 3b Qualified Code(s): N17.0 - Acute kidney failure with tubular necrosis; N18.30 - Chronic kidney disease, stage 3 unspecified Code(s): N17.9 - Acute kidney failure, unspecified; N18.9 - Chronic kidney disease, unspecified Status: Acute Assessment and Plan: Creatinine 1.8 today, closer to baseline, suspect AIN with systemic eosinophilia and rash. Appreciate nephrology consultation (2) UTI (urinary tract infection) due to urinary indwelling catheter: Code(s): T83.511A - Infection and inflammatory reaction due to indwelling urethral catheter, initial encounter; N39.0 - Urinary tract infection, site not specified Status: Acute Assessment and Plan: UTI with chronic indwelling Cowan catheter. BCx NGTD. UCx growing EColi with ESBL Levaquin was started but changed to Ertapenem on 08/09, end date 08/15/22 WBC fluctuating, but trending downwards LFTs improving, recheck in 1 week from discharge (3) Hypertension: Qualifiers: Hypertension type: unspecified Qualified Code(s): I10 - Essential (primary) hypertension Code(s): I10 - Essential (primary) hypertension Status: Chronic Assessment and Plan: Stable, continue home meds (4) Chronic obstructive pulmonary disease: Code(s): J44.9 - Chronic obstructive pulmonary disease, unspecified Status: Acute Assessment and Plan: Stable, continue home meds (5) CHF (congestive heart failure): Code(s): I50.9 - Heart failure, unspecified Status: Chronic Assessment and Plan: Echo in December 2021 showing EF 55-60% with Grade I diastolic dysfunction. Patient has acute on chronic diastolic CHF, resolved Continue diuresis with po lasix (6) Atrial fibrillation: Code(s): I48.91 - Unspecified atrial fibrillation Status: Acute Assessment and Plan: Continue Eliquis and diltiazem, currently in sinus rhythm (7) Anemia: Code(s): D64.9 - Anemia, unspecified Status: Acute Assessment and Plan: Monitor, hemoglobin stable at 8 (8) Hypothyroid: Code(s): E03.9 - Hypothyroidism, unspecified Status: Acute Assessment and Plan: TSH noted. Continue with levothyroxine. (9) Renal mass: Code(s): N28.89 - Other specified disorders of kidney and ureter Status: Acute Assessment and Plan: 6.8cm rim calcified left renal lesion likely proteinaceous/hemorrhagic cyst. No change since 12/25/2021. Unable to do an MRI or CT with contrast at this time due to renal failure. Can be further evaluate as outpatient (10) Anxiety: Code(s): F41.9 - Anxiety disorder, unspecified Status: Acute Assessment and Plan: ativan as needed Plan DVT prophylaxis with Eliquis GI prophylaxis not indicated Code status full code Subjective Date/time seen: 08/15/22 17:39 Interval history: 71yo male with AFib, CHF, HTN, CKD and chronic indwelling coawn here for fatigue. No overnight events noted. No chest pain or shortness of breath. No nausea, vomiting or diarrhea. No fevers or chills. He has still been experiencing anxiety on occasion. Review of Systems Review of Systems: 12 point review of systems was assessed and was negative except as noted in the HPI Exam Narrative: General: No acute distress, alert and oriented per baseline HEENT: Atraumatic, normocephalic, mucous membranes moist CV: Regular rate and rhythm, S1, S2 Lungs: Clear to auscultation bilaterally, no rales or crackles noted, no wheezes, good air entry Abdomen: Soft, nontender, nondistended, colostomy bag noted, Cowan bag noted Extremities: Normal to inspection, tight shiny edema, nonp
[2022-08-15] MEDS: FUROSEMIDE 40 MG TABLET PO (18:25)
[2022-08-15 20:20] VITALS: PULSE 73; PULSE 74; RESP 20; O2SAT 84
[2022-08-15] MEDS: LORATADINE 10 MG TABLET PO (21:15)
[2022-08-15] MEDS: guaiFENesin 600 MG/DEXTROMETHORPHAN 30 MG SR TAB 12 HR 1 TAB PO (21:15)
[2022-08-15 22:00] VITALS: BP 140/45; PULSE 76; RESP 16; TEMP 36.3; O2SAT 83
[2022-08-16] MEDS: LEVOTHYROXINE SODIUM 12.5 MCG TABLET PO (05:45)
[2022-08-16] MEDS: dilTIAZem HCL 30 MG TABLET PO ×3 (05:45→21:23)
[2022-08-16 06:00] VITALS: BP 123/55; PULSE 66; RESP 18; TEMP 36.4; O2SAT 94
[2022-08-16 06:48] LABS: Basophils Absolute Auto 0.1 K/mm3 (0.0-0.1); Basophils Percent Auto 0.5 % (0.2-1.2); Eosinophils Absolute Auto 1.9 K/mm3 (0-0.3); Eosinophils Percent Auto 16.4 % (0-4.4); Hematocrit 27.4 % (42.0-52.0); Hemoglobin 8.6 g/dL (14.0-18.0); Immature Granulocyte Absolute 0.13 K/mm3 (0.00-0.031); Immature Granulocyte Percent A 1.1 % (0-0.5); Lymphocytes Absolute Auto 2.05 K/mm3 (0.9-3.2); Lymphocytes Percent Auto 17.3 % (18.3-44.2); Mean Corpuscular HGB Conc 31.4 g/dl (32-36); Mean Corpuscular Hemoglobin 26.4 pg (26-34); Mean Platelet Volume 9.6 fl (7.4-10.4); Monocytes Absolute Auto 1.2 K/mm3 (0.1-0.6); Monocytes Percent Auto 10.1 % (2.6-8.5); Neutrophils Absolute Auto 6.5 K/mm3 (1.3-6.7); Neutrophils Percent Auto 54.6 % (45.5-73.1); Platelet Count Result 200 k/mm3 (150-375); Red Blood Count 3.26 M/mm3 (4.6-6.20); White Blood Count 11.8 K/mm3 (4.5-10.0)
[2022-08-16 07:00] LABS: Alanine Aminotransferase 72 U/L (6-50); Albumin Level 2.9 g/dL (3.5-5.1); Alkaline Phosphatase 186 U/L (38-126); Anion Gap 4 mmol/L (8-16); Aspartate Amino Transferase 34 U/L (17-59); Bilirubin,Total 0.6 mg/dL (0.2-1.3); Blood Urea Nitrogen 46 mg/dL (9-20); Calcium 7.4 mg/dL (8.4-10.2); Carbon Dioxide 27 mmol/L (22-30); Chloride 107 mmol/L (98-107); Estimated CRCL calculation 51 ml/min; Estimated Glomerular Filt Rate 37; Glucose 82 mg/dL (65-110); Potassium 4.4 mmol/L (3.4-5.0); Sodium 138 mmol/L (137-145)
[2022-08-16 08:38] VITALS: PULSE 66; RESP 18; O2SAT 94
[2022-08-16] MEDS: UMECLIDINIUM/VILANTEROL 62.5-25 MCG ELLIPTA 1 PUFF INHALATION (08:38)
[2022-08-16] MEDS: BUDESONIDE RESPULE NEB 0.5 MG/2 ML AMP INHALATION ×2 (08:38→20:30)
[2022-08-16] MEDS: BUMETANIDE INJ 2.5 MG/10 ML VIAL 2 MG IV PUSH (08:38)
[2022-08-16] MEDS: MECLIZINE HCL 12.5 MG TABLET PO (08:38)
[2022-08-16] MEDS: FERROUS SULFATE 324 MG TABLET PO (08:38)
[2022-08-16] MEDS: MAGNESIUM OXIDE 400 MG TABLET PO (08:38)
[2022-08-16] MEDS: CYANOCOBALAMIN 1,000 MCG TABLET 1000 MCG PO (08:38)
[2022-08-16] MEDS: ATORVASTATIN 10 MG TABLET PO (08:38)
[2022-08-16] MEDS: ALBUTEROL SULFATE NEB 2.5 MG/3 ML INH INHALATION ×2 (08:38→20:30)
[2022-08-16] MEDS: guaiFENesin 600 MG/DEXTROMETHORPHAN 30 MG SR TAB 12 HR 1 TAB PO ×2 (08:39→21:23)
[2022-08-16] MEDS: APIXABAN 2.5 MG TABLET PO ×2 (08:39→21:23)
[2022-08-16] MEDS: PREGABALIN (*CRX) 75 MG CAPSULE PO ×2 (08:39→18:03)
[2022-08-16] MEDS: FLUTICASONE PROPIONATE 0.05% NA SPR 16 GM BTL (*BKC) 1 SPRAY NASAL (08:39)
[2022-08-16] MEDS: BACLOFEN 10 MG TABLET PO ×2 (08:39→18:03)
[2022-08-16] MEDS: EUCERIN CREAM 120 GM JAR 1 APPLIC TOPICAL (08:39)
[2022-08-16] MEDS: PANTOPRAZOLE 40 MG TABLET PO (08:39)
[2022-08-16 09:00] VITALS: PULSE 66; RESP 18
--- NOTE | 2022-08-16 11:29 | PM.DS ---
DS: Admitting Diagnosis Discharge Date 08/19/2022 Admitting Diagnosis weakness DS: Discharge Diagnosis Discharge Diagnosis (1) Acute on chronic renal failure: Qualifiers: Acute renal failure type: with acute tubular necrosis Chronic kidney disease stage: stage 3 (moderate) Chronic kidney disease stage 3 subtype: unspecified whether 3a or 3b Qualified Code(s): N17.0 - Acute kidney failure with tubular necrosis; N18.30 - Chronic kidney disease, stage 3 unspecified Code(s): N17.9 - Acute kidney failure, unspecified; N18.9 - Chronic kidney disease, unspecified Status: Acute Assessment and Plan: Creatinine 1.8 today, closer to baseline, suspect AIN with systemic eosinophilia and rash. Appreciate nephrology consultation (2) UTI (urinary tract infection) due to urinary indwelling catheter: Code(s): T83.511A - Infection and inflammatory reaction due to indwelling urethral catheter, initial encounter; N39.0 - Urinary tract infection, site not specified Status: Acute Assessment and Plan: UTI with chronic indwelling Pereira catheter. BCx NGTD. UCx growing EColi with ESBL Levaquin was started but changed to Ertapenem on 08/09, end date 08/15/22 WBC fluctuating, but trending downwards LFTs improving, recheck in 1 week from discharge (3) Hypertension: Qualifiers: Hypertension type: unspecified Qualified Code(s): I10 - Essential (primary) hypertension Code(s): I10 - Essential (primary) hypertension Status: Chronic Assessment and Plan: Stable, continue home meds (4) Chronic obstructive pulmonary disease: Code(s): J44.9 - Chronic obstructive pulmonary disease, unspecified Status: Acute Assessment and Plan: Stable, continue home meds (5) CHF (congestive heart failure): Code(s): I50.9 - Heart failure, unspecified Status: Chronic Assessment and Plan: Echo in December 2021 showing EF 55-60% with Grade I diastolic dysfunction. Patient has acute on chronic diastolic CHF, resolved Continue diuresis with po lasix (6) Atrial fibrillation: Code(s): I48.91 - Unspecified atrial fibrillation Status: Acute Assessment and Plan: Continue Eliquis and diltiazem, currently in sinus rhythm (7) Anemia: Code(s): D64.9 - Anemia, unspecified Status: Acute Assessment and Plan: Monitor, hemoglobin stable at 8 (8) Hypothyroid: Code(s): E03.9 - Hypothyroidism, unspecified Status: Acute Assessment and Plan: TSH noted. Continue with levothyroxine. (9) Renal mass: Code(s): N28.89 - Other specified disorders of kidney and ureter Status: Acute Assessment and Plan: 6.8cm rim calcified left renal lesion likely proteinaceous/hemorrhagic cyst. No change since 12/25/2021. Unable to do an MRI or CT with contrast at this time due to renal failure. Can be further evaluate as outpatient (10) Anxiety: Code(s): F41.9 - Anxiety disorder, unspecified Status: Acute Assessment and Plan: ativan as needed (11) Eosinophilia: Code(s): D72.10 - Eosinophilia, unspecified Status: Acute Assessment and Plan: unknown etiology, appreciate heme/onc consult, f/u outpatient, testing pending Plan DVT prophylaxis with Eliquis GI prophylaxis not indicated Code status full code DS: Summary Hospital Course Hospital Course: 71-year-old male with past medical history significant for AFib, heart failure, hypertension, hypothyroidism, neurogenic bladder with indwelling Pereira catheter, chronic colostomy bag, presented with weakness, confusion and lethargy. No chest pain or shortness of breath. No nausea, vomiting or diarrhea. No fevers or chills. He was found to have a UTI and started on antibiotics. He also had a mild heart failure exacerbation and was diuresed. His COPD seems stable and home medications were continued. He did have acu
--- NOTE | 2022-08-16 13:47 | P.PNNP_ITS ---
Progress Note: A&P Assessment and Plan (1) OLIVER (acute kidney injury): Code(s): N17.9 - Acute kidney failure, unspecified Status: Acute Assessment and Plan: * resolving (if not resolved) * presumably due to acute infection/UTI * however, AIN may be strong possibility: * diffuse rash on presentation * peripheral eosinophilia (worse on admission but present for the last 6 months) * etiology? -- eosinophilia doing better now * on trial of steroids. These have been tapered off however the eosinophilia is worse again today. * His creatinine is stable and he has no rash. * will reassess tomorrow. Repeat everything. (2) Chronic kidney disease, stage 3: Qualifiers: Chronic kidney disease stage 3 subtype: stage 3b (GFR 30-44) Qualified Code(s): N18.32 - Chronic kidney disease, stage 3b Code(s): N18.30 - Chronic kidney disease, stage 3 unspecified Status: Chronic Assessment and Plan: * creatinine had been running ~ 1.7 - 2.2mg/d * this would cause him to CKD stage 3b * probably from his HTN, vascular disease, and age (3) Acute UTI: Code(s): N39.0 - Urinary tract infection, site not specified Status: Acute Assessment and Plan: * culture with E.coli (ESBL) * Off antibiotics. * WBC improving (4) Hypertension: Qualifiers: Hypertension type: unspecified Qualified Code(s): I10 - Essential (primary) hypertension Code(s): I10 - Essential (primary) hypertension Status: Chronic Assessment and Plan: * blood pressure is up and down. It was as high as 1722 days ago than 152 yesterday and now the blood pressure is 123. * follow trend of hemodynamics (5) CHF (congestive heart failure): Code(s): I50.9 - Heart failure, unspecified Status: Chronic Assessment and Plan: * The patient has grade 1 diastolic dysfunction. Valves are minimally abnormal. * Chest x-ray still shows fluid. * On Bumex 1 mg daily p.o. * follow respiratory status Subjective Date/time seen: 08/16/22 13:47 Interval history: Bob feels better. His skin is peeling but there is no itching and no acute rash. He is not having any chest pain or shortness of breath. Exam Narrative: General: Large male in NAD Heart: IRRR, normal S1 and S2; no rub or gallop Lungs: clear Abdomen: soft, nontender, nondistended, positive bowel sounds; + colostomy Extremities: no cyanosis or clubbing; 1+ edema Skin: rash resolving . No erythema. He has some very superficial desquamation on the shoulders and chest. Objective Data Vital Signs Vital Signs: Vital Signs - 24 hr 08/15/22 13:53 08/15/22 14:00 08/15/22 20:20 Temperature 97.1 F L Pulse Rate 72 73 Respiratory Rate 18 20 Blood Pressure 127/51 L Pulse Oximetry 88 L 84 L Oxygen Delivery Room Air Room Air Oxygen Flow Rate 08/15/22 20:20 08/15/22 22:00 08/16/22 06:00 Temperature 97.3 F L 97.6 F Pulse Rate 74 76 66 Respiratory Rate 20 16 18 Blood Pressure 140/45 L 123/55 L Pulse Oximetry 83 L 94 Oxygen Delivery Oxygen Flow Rate 08/16/22 08:50 08/16/22 08:38 08/16/22 08:38 Temperature Pulse Rate 66 66 Respiratory Rate 18 B
--- NOTE | 2022-08-16 13:47 | PM.PNNEP ---
Progress Note: A&P Assessment and Plan (1) OLIVER (acute kidney injury): Code(s): N17.9 - Acute kidney failure, unspecified Status: Acute Assessment and Plan: resolving (if not resolved) presumably due to acute infection/UTI however, AIN may be strong possibility: diffuse rash on presentation peripheral eosinophilia (worse on admission but present for the last 6 months) etiology? -- eosinophilia doing better now on trial of steroids. These have been tapered off however the eosinophilia is worse again today. His creatinine is stable and he has no rash. will reassess tomorrow. Repeat everything. (2) Chronic kidney disease, stage 3: Qualifiers: Chronic kidney disease stage 3 subtype: stage 3b (GFR 30-44) Qualified Code(s): N18.32 - Chronic kidney disease, stage 3b Code(s): N18.30 - Chronic kidney disease, stage 3 unspecified Status: Chronic Assessment and Plan: creatinine had been running ~ 1.7 - 2.2mg/d this would cause him to CKD stage 3b probably from his HTN, vascular disease, and age (3) Acute UTI: Code(s): N39.0 - Urinary tract infection, site not specified Status: Acute Assessment and Plan: culture with E.coli (ESBL) Off antibiotics. WBC improving (4) Hypertension: Qualifiers: Hypertension type: unspecified Qualified Code(s): I10 - Essential (primary) hypertension Code(s): I10 - Essential (primary) hypertension Status: Chronic Assessment and Plan: blood pressure is up and down. It was as high as 1722 days ago than 152 yesterday and now the blood pressure is 123. follow trend of hemodynamics (5) CHF (congestive heart failure): Code(s): I50.9 - Heart failure, unspecified Status: Chronic Assessment and Plan: The patient has grade 1 diastolic dysfunction. Valves are minimally abnormal. Chest x-ray still shows fluid. On Bumex 1 mg daily p.o. follow respiratory status Subjective Date/time seen: 08/16/22 13:47 Interval history: Bob feels better. His skin is peeling but there is no itching and no acute rash. He is not having any chest pain or shortness of breath. Exam Narrative: General: Large male in NAD Heart: IRRR, normal S1 and S2; no rub or gallop Lungs: clear Abdomen: soft, nontender, nondistended, positive bowel sounds; + colostomy Extremities: no cyanosis or clubbing; 1+ edema Skin: rash resolving . No erythema. He has some very superficial desquamation on the shoulders and chest. Objective Data Vital Signs Vital Signs: Vital Signs - 24 hr 08/15/22 13:53 08/15/22 14:00 08/15/22 20:20 Temperature 97.1 F L Pulse Rate 72 73 Respiratory Rate 18 20 Blood Pressure 127/51 L Pulse Oximetry 88 L 84 L Oxygen Delivery Room Air Room Air Oxygen Flow Rate 08/15/22 20:20 08/15/22 22:00 08/16/22 06:00 Temperature 97.3 F L 97.6 F Pulse Rate 74 76 66 Respiratory Rate 20 16 18 Blood Pressure 140/45 L 123/55 L Pulse Oximetry 83 L 94 Oxygen Delivery Oxygen Flow Rate 08/16/22 08:50 08/16/22 08:38 08/16/22 08:38 Temperature Pulse Rate 66 66 Respiratory Rate 18 Blood Pressure Pulse Oximetry 94 Oxygen Delivery Room Air Nasal Cannula Oxygen Flow Rate 2 08/16/22 09:00 Temperature Pulse Rate 66 Respiratory Rate 18 Blood Pressure Pulse Oximetry Oxygen Delivery Oxygen Flow Rate Intake/Output Intake/Output: Intake & Output 08/13/22 08/14/22 08/15/22 08/16/22 23:59 23:59 23:59 23:59 Intake Total 1120 1258 654 550 Output Total 2800 3050 3375 2300 [facility] -[phone] Meds/Results Medications: Active Medications Generic Name Dose Route Start Last Admin Trade Name Denisa PRN Reason Stop Dose Admin Acetaminophen 650 mg 08/08/22 01:54 Acetaminophen 325 Mg Tablet PO Q6-8H PRN Pain Rated 1-3 Albuterol 2.5 mg 08/08/22 08:
[2022-08-16 14:00] VITALS: BP 149/58; PULSE 71; RESP 20; TEMP 36.3; O2SAT 84
--- NOTE | 2022-08-16 17:32 | PM.IMPN ---
Progress Note: A&P Assessment and Plan (1) Acute on chronic renal failure: Qualifiers: Acute renal failure type: with acute tubular necrosis Chronic kidney disease stage: stage 3 (moderate) Chronic kidney disease stage 3 subtype: unspecified whether 3a or 3b Qualified Code(s): N17.0 - Acute kidney failure with tubular necrosis; N18.30 - Chronic kidney disease, stage 3 unspecified Code(s): N17.9 - Acute kidney failure, unspecified; N18.9 - Chronic kidney disease, unspecified Status: Acute Assessment and Plan: Creatinine 1.8 today, closer to baseline, suspect AIN with systemic eosinophilia and rash. Appreciate nephrology consultation Eosinophilia worsening (2) UTI (urinary tract infection) due to urinary indwelling catheter: Code(s): T83.511A - Infection and inflammatory reaction due to indwelling urethral catheter, initial encounter; N39.0 - Urinary tract infection, site not specified Status: Acute Assessment and Plan: UTI with chronic indwelling Cowan catheter. BCx NGTD. UCx growing EColi with ESBL Levaquin was started but changed to Ertapenem on 08/09, end date 08/15/22 WBC fluctuating, but trending downwards LFTs improving, recheck in 1 week from discharge (3) Hypertension: Qualifiers: Hypertension type: unspecified Qualified Code(s): I10 - Essential (primary) hypertension Code(s): I10 - Essential (primary) hypertension Status: Chronic Assessment and Plan: Stable, continue home meds (4) Chronic obstructive pulmonary disease: Code(s): J44.9 - Chronic obstructive pulmonary disease, unspecified Status: Acute Assessment and Plan: Stable, continue home meds (5) CHF (congestive heart failure): Code(s): I50.9 - Heart failure, unspecified Status: Chronic Assessment and Plan: Echo in December 2021 showing EF 55-60% with Grade I diastolic dysfunction. Patient has acute on chronic diastolic CHF, resolved Continue diuresis with po lasix (6) Atrial fibrillation: Code(s): I48.91 - Unspecified atrial fibrillation Status: Acute Assessment and Plan: Continue Eliquis and diltiazem, currently in sinus rhythm (7) Anemia: Code(s): D64.9 - Anemia, unspecified Status: Acute Assessment and Plan: Monitor, hemoglobin stable at 8 (8) Hypothyroid: Code(s): E03.9 - Hypothyroidism, unspecified Status: Acute Assessment and Plan: TSH noted. Continue with levothyroxine. (9) Renal mass: Code(s): N28.89 - Other specified disorders of kidney and ureter Status: Acute Assessment and Plan: 6.8cm rim calcified left renal lesion likely proteinaceous/hemorrhagic cyst. No change since 12/25/2021. Unable to do an MRI or CT with contrast at this time due to renal failure. Can be further evaluate as outpatient (10) Anxiety: Code(s): F41.9 - Anxiety disorder, unspecified Status: Acute Assessment and Plan: ativan as needed (11) Respiratory failure: Code(s): J96.90 - Respiratory failure, unspecified, unspecified whether with hypoxia or hypercapnia Status: Acute Assessment and Plan: Multifactorial, pulm consult pending, suspect this is a combination of sleep apnea with hypercapnic respiratory failure resolved hypoxic respiratory failure from COPD compounded by atelectasis from sitting in the chair all day Plan DVT prophylaxis with Eliquis GI prophylaxis not indicated Code status full code Subjective Date/time seen: 08/16/22 17:32 Interval history: 71yo male with AFib, CHF, HTN, CKD and chronic indwelling cowan here for fatigue. No overnight events noted. No chest pain or shortness of breath. No nausea, vomiting or diarrhea. No fevers or chills. Some anxiety, much improved from yesterday. No cough. Review of Systems Review of Systems: 12 point review of systems was assessed and was negative exc
[2022-08-16 21:01] VITALS: PULSE 67; RESP 15
[2022-08-16] MEDS: LORATADINE 10 MG TABLET PO (21:23)
[2022-08-16 22:00] VITALS: BP 147/62; PULSE 69; RESP 16; TEMP 37.1; O2SAT 90
[2022-08-16 23:41] LABS: ANCA Screen Negative (Negative)
[2022-08-17] VITALS (8 sets, daily range): BP systolic 121–124; BP diastolic 47–62; PULSE 69–83; RESP 16–22; TEMP 36.4–36.9; O2SAT 86–97
[2022-08-17] MEDS: dilTIAZem HCL 30 MG TABLET PO ×3 (05:41→21:30)
[2022-08-17] MEDS: LEVOTHYROXINE SODIUM 12.5 MCG TABLET PO (05:41)
[2022-08-17 06:19] LABS: Basophils Absolute Auto 0.1 K/mm3 (0.0-0.1); Basophils Percent Auto 0.4 % (0.2-1.2); Eosinophils Absolute Auto 2.5 K/mm3 (0-0.3); Eosinophils Percent Auto 19.6 % (0-4.4); Hematocrit 28.6 % (42.0-52.0); Immature Granulocyte Absolute 0.13 K/mm3 (0.00-0.031); Lymphocytes Absolute Auto 1.67 K/mm3 (0.9-3.2); Lymphocytes Percent Auto 12.9 % (18.3-44.2); Mean Corpuscular HGB Conc 31.5 g/dl (32-36); Mean Corpuscular Hemoglobin 26.4 pg (26-34); Mean Corpuscular Volume 83.9 fl (80-100); Mean Platelet Volume 9.7 fl (7.4-10.4); Monocytes Absolute Auto 1.2 K/mm3 (0.1-0.6); Monocytes Percent Auto 9.6 % (2.6-8.5); Neutrophils Absolute Auto 7.3 K/mm3 (1.3-6.7); Neutrophils Percent Auto 56.5 % (45.5-73.1); Platelet Count Result 202 k/mm3 (150-375); Red Blood Count 3.41 M/mm3 (4.6-6.20); Red Cell Distribution Width 15.8 % (11.5-14.5)
[2022-08-17 06:30] LABS: Alanine Aminotransferase 57 U/L (6-50); Albumin Level 3.2 g/dL (3.5-5.1); Alkaline Phosphatase 198 U/L (38-126); Anion Gap 6 mmol/L (8-16); Aspartate Amino Transferase 25 U/L (17-59); Bilirubin,Total 0.7 mg/dL (0.2-1.3); Blood Urea Nitrogen 50 mg/dL (9-20); Calcium 7.3 mg/dL (8.4-10.2); Carbon Dioxide 25 mmol/L (22-30); Chloride 102 mmol/L (98-107); Estimated CRCL calculation 51 ml/min; Estimated Glomerular Filt Rate 37; Glucose 87 mg/dL (65-110); Potassium 4.1 mmol/L (3.4-5.0); Sodium 133 mmol/L (137-145)
[2022-08-17 06:51] LABS: Hypochromasia 1+ (NORMAL); Platelet Clumps Present; Platelet Estimate Adequate (Adequate); Schistocytes None Seen (NORMAL)
[2022-08-17] MEDS: BUDESONIDE RESPULE NEB 0.5 MG/2 ML AMP INHALATION (08:15)
[2022-08-17] MEDS: ALBUTEROL SULFATE NEB 2.5 MG/3 ML INH INHALATION ×2 (08:15→19:57)
[2022-08-17] MEDS: UMECLIDINIUM/VILANTEROL 62.5-25 MCG ELLIPTA 1 PUFF INHALATION (08:25)
--- NOTE | 2022-08-17 08:39 | P.PNNP_ITS ---
Progress Note: A&P Assessment and Plan (1) OLIVER (acute kidney injury): Code(s): N17.9 - Acute kidney failure, unspecified Status: Acute Assessment and Plan: * resolving (if not resolved) * presumably due to acute infection/UTI * however, AIN may be strong possibility: * diffuse rash on presentation * peripheral eosinophilia (worse on admission but present for the last 6 months) * etiology? -- eosinophilia doing better now * on trial of steroids. These have been tapered off however the eosinophilia reappeared yesterday and is worse today. * His creatinine is stable and he has no new acute rash. * acute interstitial nephritis is resolving. * He did not have AIN back when his eosinophils were high 6 months ago either. On if he has some other cause for his eosinophils. * His cortisol level was only 14.3 p.o. will check a Cortrosyn stim test. He is just coming off of steroids so will order this for Thursday. Other issues such as cancer, parasites, autoimmune, adrenal insufficiency, and allergies co uld be at play. Meds that could do this include diltiazem, omeprazole, furosemide, or certain foods as well. Consider Heme consult? (2) Chronic kidney disease, stage 3: Qualifiers: Chronic kidney disease stage 3 subtype: stage 3b (GFR 30-44) Qualified Code(s): N18.32 - Chronic kidney disease, stage 3b Code(s): N18.30 - Chronic kidney disease, stage 3 unspecified Status: Chronic Assessment and Plan: * creatinine had been running ~ 1.7 - 2.2mg/d * this would cause him to CKD stage 3b * probably from his HTN, vascular disease, and age * he is currently at baseline (3) Acute UTI: Code(s): N39.0 - Urinary tract infection, site not specified Status: Acute Assessment and Plan: * culture with E.coli (ESBL) * finished antibiotics (4) Hypertension: Qualifiers: Hypertension type: unspecified Qualified Code(s): I10 - Essential (primary) hypertension Code(s): I10 - Essential (primary) hypertension Status: Chronic Assessment and Plan: * blood pressure is up and down. * systolic ranging 120-150. (5) CHF (congestive heart failure): Code(s): I50.9 - Heart failure, unspecified Status: Chronic Assessment and Plan: * The patient has grade 1 diastolic dysfunction. Valves are minimally abnormal. * Chest x-ray still shows fluid. * On Bumex 1 mg daily p.o. * follow respiratory status Subjective Date/time seen: 08/17/22 08:39 Interval history: Bob feels about the same. no new itching. Breathing fine. He ate a good breakfast Exam Narrative: General: Large male in NAD Heart: IRRR, normal S1 and S2; no rub or gallop Lungs: clear bilaterally Abdomen: soft, nontender, nondistended, positive bowel sounds; + colostomy Extremities: no cyanosis or clubbing; 1+ edema Skin: rash resolving . No erythema. He has some very superficial desquamation on the shoulders and chest. Objective Data Vital Signs Vital Signs: Vital Signs - 24 hr 08/16/22 08:50 08/16/22 09:00 08/16/22 14:00 Temperature 97.3 F L Pulse Rate 66 71 Respiratory Rate 18 20 Blood Pressure 149/58 H Pulse Oximetry 84 L Oxygen Delivery Room Air 08/16/22 21:01 08/16/22 22:00 08/16/22 21:23 Temperature 9
--- NOTE | 2022-08-17 08:39 | PM.PNNEP ---
Progress Note: A&P Assessment and Plan (1) OLIVER (acute kidney injury): Code(s): N17.9 - Acute kidney failure, unspecified Status: Acute Assessment and Plan: resolving (if not resolved) presumably due to acute infection/UTI however, AIN may be strong possibility: diffuse rash on presentation peripheral eosinophilia (worse on admission but present for the last 6 months) etiology? -- eosinophilia doing better now on trial of steroids. These have been tapered off however the eosinophilia reappeared yesterday and is worse today. His creatinine is stable and he has no new acute rash. acute interstitial nephritis is resolving. He did not have AIN back when his eosinophils were high 6 months ago either. On if he has some other cause for his eosinophils. His cortisol level was only 14.3 p.o. will check a Cortrosyn stim test. He is just coming off of steroids so will order this for Thursday. Other issues such as cancer, parasites, autoimmune, adrenal insufficiency, and allergies could be at play. Meds that could do this include diltiazem, omeprazole, furosemide, or certain foods as well. Consider Heme consult? (2) Chronic kidney disease, stage 3: Qualifiers: Chronic kidney disease stage 3 subtype: stage 3b (GFR 30-44) Qualified Code(s): N18.32 - Chronic kidney disease, stage 3b Code(s): N18.30 - Chronic kidney disease, stage 3 unspecified Status: Chronic Assessment and Plan: creatinine had been running ~ 1.7 - 2.2mg/d this would cause him to CKD stage 3b probably from his HTN, vascular disease, and age he is currently at baseline (3) Acute UTI: Code(s): N39.0 - Urinary tract infection, site not specified Status: Acute Assessment and Plan: culture with E.coli (ESBL) finished antibiotics (4) Hypertension: Qualifiers: Hypertension type: unspecified Qualified Code(s): I10 - Essential (primary) hypertension Code(s): I10 - Essential (primary) hypertension Status: Chronic Assessment and Plan: blood pressure is up and down. systolic ranging 120-150. (5) CHF (congestive heart failure): Code(s): I50.9 - Heart failure, unspecified Status: Chronic Assessment and Plan: The patient has grade 1 diastolic dysfunction. Valves are minimally abnormal. Chest x-ray still shows fluid. On Bumex 1 mg daily p.o. follow respiratory status Subjective Date/time seen: 08/17/22 08:39 Interval history: Bob feels about the same. no new itching. Breathing fine. He ate a good breakfast Exam Narrative: General: Large male in NAD Heart: IRRR, normal S1 and S2; no rub or gallop Lungs: clear bilaterally Abdomen: soft, nontender, nondistended, positive bowel sounds; + colostomy Extremities: no cyanosis or clubbing; 1+ edema Skin: rash resolving . No erythema. He has some very superficial desquamation on the shoulders and chest. Objective Data Vital Signs Vital Signs: Vital Signs - 24 hr 08/16/22 08:50 08/16/22 09:00 08/16/22 14:00 Temperature 97.3 F L Pulse Rate 66 71 Respiratory Rate 18 20 Blood Pressure 149/58 H Pulse Oximetry 84 L Oxygen Delivery Room Air 08/16/22 21:01 08/16/22 22:00 08/16/22 21:23 Temperature 98.7 F Pulse Rate 67 69 Respiratory Rate 15 16 Blood Pressure 147/62 H Pulse Oximetry 90 Oxygen Delivery Room Air 08/17/22 06:00 Temperature 98.4 F Pulse Rate 76 Respiratory Rate 16 Blood Pressure 121/62 Pulse Oximetry 86 L Oxygen Delivery Intake/Output Intake/Output: Intake & Output 08/14/22 08/15/22 08/16/22 08/17/22 23:59 23:59 23:59 23:59 Intake Total 3414 516 8282 500 Output Total 4424 3375 6100 1100 [facility] -[phone] -600 Meds/Results Medications: Active Medications Generic Name Dose Route Start Last Admin Trade Name Freq PRN Reason Stop Dose Admin Ac
[2022-08-17] MEDS: APIXABAN 2.5 MG TABLET PO ×2 (08:44→21:30)
[2022-08-17] MEDS: MAGNESIUM OXIDE 400 MG TABLET PO (08:44)
[2022-08-17] MEDS: FLUTICASONE PROPIONATE 0.05% NA SPR 16 GM BTL (*BKC) 1 SPRAY NASAL (08:44)
[2022-08-17] MEDS: CYANOCOBALAMIN 1,000 MCG TABLET 1000 MCG PO (08:44)
[2022-08-17] MEDS: guaiFENesin 600 MG/DEXTROMETHORPHAN 30 MG SR TAB 12 HR 1 TAB PO ×2 (08:45→22:07)
[2022-08-17] MEDS: PANTOPRAZOLE 40 MG TABLET PO (08:45)
[2022-08-17] MEDS: BACLOFEN 10 MG TABLET PO ×2 (08:45→17:03)
[2022-08-17] MEDS: FERROUS SULFATE 324 MG TABLET PO (08:45)
[2022-08-17] MEDS: BUMETANIDE 1 MG TABLET PO (08:45)
[2022-08-17] MEDS: LORazepam (*CRX) 0.5 MG TABLET PO (08:45)
[2022-08-17] MEDS: PREGABALIN (*CRX) 75 MG CAPSULE PO ×2 (08:45→17:02)
[2022-08-17] MEDS: ATORVASTATIN 10 MG TABLET PO (08:45)
[2022-08-17] MEDS: EUCERIN CREAM 120 GM JAR 1 APPLIC TOPICAL (08:53)
--- NOTE | 2022-08-17 12:00 | PM.IMPN ---
Progress Note: A&P Assessment and Plan (1) Acute on chronic renal failure: Qualifiers: Acute renal failure type: with acute tubular necrosis Chronic kidney disease stage: stage 3 (moderate) Chronic kidney disease stage 3 subtype: unspecified whether 3a or 3b Qualified Code(s): N17.0 - Acute kidney failure with tubular necrosis; N18.30 - Chronic kidney disease, stage 3 unspecified Code(s): N17.9 - Acute kidney failure, unspecified; N18.9 - Chronic kidney disease, unspecified Status: Acute Assessment and Plan: Creatinine remains at 1.8 today, near baseline, suspect AIN with systemic eosinophilia and rash. Appreciate nephrology consultation Eosinophilia worsening, unsure of etiology, hematology/oncology consult pending (2) UTI (urinary tract infection) due to urinary indwelling catheter: Code(s): T83.511A - Infection and inflammatory reaction due to indwelling urethral catheter, initial encounter; N39.0 - Urinary tract infection, site not specified Status: Acute Assessment and Plan: UTI with chronic indwelling Pereira catheter. BCx NGTD. UCx growing EColi with ESBL Levaquin was started but changed to Ertapenem on 08/09, end date 08/15/22 WBC fluctuating, back up to 13 now despite completed course of antibiotics for only infection found, unsure why this leukocytosis is remaining, hematology/oncology consultation pending, will observe off antibiotics 1 more day, if leukocytosis improves his again tomorrow, will restart ertapenem and monitor response for possibly incompletely treated UTI? Repeat urine cultures pending LFTs continue to improve, would recheck in 1 week from discharge (3) Hypertension: Qualifiers: Hypertension type: unspecified Qualified Code(s): I10 - Essential (primary) hypertension Code(s): I10 - Essential (primary) hypertension Status: Chronic Assessment and Plan: Stable, continue home meds (4) Chronic obstructive pulmonary disease: Code(s): J44.9 - Chronic obstructive pulmonary disease, unspecified Status: Acute Assessment and Plan: Stable, continue home meds (5) CHF (congestive heart failure): Code(s): I50.9 - Heart failure, unspecified Status: Chronic Assessment and Plan: Echo in December 2021 showing EF 55-60% with Grade I diastolic dysfunction. Patient has acute on chronic diastolic CHF, resolved Continue diuresis with po lasix (6) Atrial fibrillation: Code(s): I48.91 - Unspecified atrial fibrillation Status: Acute Assessment and Plan: Continue Eliquis and diltiazem, currently in sinus rhythm (7) Anemia: Code(s): D64.9 - Anemia, unspecified Status: Acute Assessment and Plan: Monitor, hemoglobin stable at 8 (8) Hypothyroid: Code(s): E03.9 - Hypothyroidism, unspecified Status: Acute Assessment and Plan: TSH noted. Continue with levothyroxine. (9) Renal mass: Code(s): N28.89 - Other specified disorders of kidney and ureter Status: Acute Assessment and Plan: 6.8cm rim calcified left renal lesion likely proteinaceous/hemorrhagic cyst. No change since 12/25/2021. Unable to do an MRI or CT with contrast at this time due to renal failure. Can be further evaluate as outpatient (10) Anxiety: Code(s): F41.9 - Anxiety disorder, unspecified Status: Acute Assessment and Plan: ativan as needed (11) Respiratory failure: Code(s): J96.90 - Respiratory failure, unspecified, unspecified whether with hypoxia or hypercapnia Status: Acute Assessment and Plan: Multifactorial, pulm consult appreciated, suspect this is a combination of sleep apnea with hypercapnic respiratory failure resolved hypoxic respiratory failure from COPD compounded by atelectasis from sitting in the chair all day Plan DVT prophylaxis with Eliquis GI prophylaxis not indicated Code status full code Subject
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
[2022-08-17 13:34] LABS: Alveolar/Arterial O2 Gradient 89.6 mmHg; Base Excess ABG -0.1 mEq/l (+/-2.0); Fractional Inspired Oxygen 30 %; HCO3 ABG 25.7 mEq/l (22.0-26.0); Oxygen Content ABG 14.6 %vol (16.0-22.0); Oxygen Saturation ABG 93.1 % (95.0-100.0); Oxyhemoglobin 91.5 % THb (90.0-100.0); PCO2 ABG 46.8 mmHg (35.0-45.0); PO2 ABG 69.3 mmHg (80.0-100.0); PO2 FiO2 Ratio Arterial Blood 2.31 %; Total Hemoglobin 11.3 g/dL (12.0-18.0); pH ABG 7.357 (7.350-7.450)
[2022-08-17 13:37] LABS: Device NASAL CANNULA; Liters per Minute 2.5 LPM; Modified Allen's Test Pass; Site Drawn RIGHT RADIAL
[2022-08-17 14:04] LABS: Procalcitonin 0.4 ng/mL
[2022-08-17 15:04] LABS: Appearance Urine Cloudy (Clear); Bilirubin Urine Negative (Negative); Blood Urine 1+ (Negative); Color Urine Light Yellow (Yellow); Glucose Urine UA Negative (Negative); Ketones Urine Negative (Negative); Leukocyte Esterase Ur 3+ LEU/UL (NEGATIVE); Nitrate Urine Negative (Negative); Protein Urine Negative (Negative); Specific Grav Ur 1.015 (1.001-1.035); Urobilinogen Urine 0.2 mg/dL (<2.0); pH Urine 5.5 (5.0-9.0)
[2022-08-17 15:10] LABS: Amorphous Sediment Urine Few; Bacteria Urine Trace /hpf; Mucus Urine Few /lpf; RBC Urine 21-50 /hpf (0-2); Squamous Epithelial Cell Urine Occasional /hpf (Few); WBC Clumps Urine Present /HPF; WBC Urine >75 /hpf (0-3)
[2022-08-17 15:14] LABS: Add Urine Microscopic? YES
[2022-08-17] MEDS: IPRATROPIUM BR 0.02% INH SOLN 0.5 MG/2.5 ML VIAL INHALATION (19:57)
[2022-08-17] MEDS: LORATADINE 10 MG TABLET PO (21:30)
[2022-08-18] VITALS (10 sets, daily range): BP systolic 130–145; BP diastolic 43–117; PULSE 66–89; RESP 14–22; TEMP 36.2–37.1; O2SAT 93–100
[2022-08-18] MEDS: LEVOTHYROXINE SODIUM 12.5 MCG TABLET PO (06:00)
[2022-08-18] MEDS: dilTIAZem HCL 30 MG TABLET PO ×3 (06:00→20:47)
[2022-08-18 06:18] LABS: Basophils Absolute Auto 0.1 K/mm3 (0.0-0.1); Basophils Percent Auto 0.4 % (0.2-1.2); Eosinophils Absolute Auto 2.9 K/mm3 (0-0.3); Eosinophils Percent Auto 23.7 % (0-4.4); Hematocrit 28.4 % (42.0-52.0); Hemoglobin 8.9 g/dL (14.0-18.0); Immature Granulocyte Absolute 0.08 K/mm3 (0.00-0.031); Immature Granulocyte Percent A 0.6 % (0-0.5); Lymphocytes Absolute Auto 1.37 K/mm3 (0.9-3.2); Lymphocytes Percent Auto 11.1 % (18.3-44.2); Mean Corpuscular HGB Conc 31.3 g/dl (32-36); Mean Corpuscular Hemoglobin 26.1 pg (26-34); Mean Corpuscular Volume 83.3 fl (80-100); Mean Platelet Volume 9.5 fl (7.4-10.4); Monocytes Percent Auto 7.8 % (2.6-8.5); Neutrophils Percent Auto 56.4 % (45.5-73.1); Platelet Count Result 184 k/mm3 (150-375); Red Blood Count 3.41 M/mm3 (4.6-6.20); Red Cell Distribution Width 15.5 % (11.5-14.5); White Blood Count 12.3 K/mm3 (4.5-10.0)
[2022-08-18 06:34] LABS: Alanine Aminotransferase 46 U/L (6-50); Albumin Level 3.2 g/dL (3.5-5.1); Alkaline Phosphatase 201 U/L (38-126); Anion Gap 4 mmol/L (8-16); Aspartate Amino Transferase 24 U/L (17-59); Bilirubin,Total 0.8 mg/dL (0.2-1.3); Blood Urea Nitrogen 48 mg/dL (9-20); Calcium 7.2 mg/dL (8.4-10.2); Carbon Dioxide 27 mmol/L (22-30); Chloride 101 mmol/L (98-107); Estimated CRCL calculation 46 ml/min; Estimated Glomerular Filt Rate 33; Glucose 87 mg/dL (65-110); Potassium 4.2 mmol/L (3.4-5.0); Sodium 132 mmol/L (137-145)
[2022-08-18] MEDS: UMECLIDINIUM/VILANTEROL 62.5-25 MCG ELLIPTA 1 PUFF INHALATION (08:07)
[2022-08-18] MEDS: BUDESONIDE RESPULE NEB 0.5 MG/2 ML AMP INHALATION ×2 (08:07→20:50)
[2022-08-18] MEDS: ALBUTEROL SULFATE NEB 2.5 MG/3 ML INH INHALATION ×2 (08:07→20:50)
[2022-08-18] MEDS: MAGNESIUM OXIDE 400 MG TABLET PO (09:37)
[2022-08-18] MEDS: ATORVASTATIN 10 MG TABLET PO (09:37)
[2022-08-18] MEDS: guaiFENesin 600 MG/DEXTROMETHORPHAN 30 MG SR TAB 12 HR 1 TAB PO ×2 (09:37→20:46)
[2022-08-18] MEDS: PANTOPRAZOLE 40 MG TABLET PO (09:37)
[2022-08-18] MEDS: CYANOCOBALAMIN 1,000 MCG TABLET 1000 MCG PO (09:38)
[2022-08-18] MEDS: APIXABAN 2.5 MG TABLET PO ×2 (09:38→20:46)
[2022-08-18] MEDS: BUMETANIDE 1 MG TABLET PO (09:38)
[2022-08-18] MEDS: FERROUS SULFATE 324 MG TABLET PO (09:38)
[2022-08-18] MEDS: EUCERIN CREAM 120 GM JAR 1 APPLIC TOPICAL (09:39)
[2022-08-18] MEDS: FLUTICASONE PROPIONATE 0.05% NA SPR 16 GM BTL (*BKC) 1 SPRAY NASAL (09:39)
[2022-08-18] MEDS: BACLOFEN 10 MG TABLET PO ×2 (09:39→18:05)
--- NOTE | 2022-08-18 09:53 | P.PNIM_ITS ---
Progress Note: A&P Assessment and Plan (1) Acute on chronic renal failure: Qualifiers: Acute renal failure type: with acute tubular necrosis Chronic kidney disease stage: stage 3 (moderate) Chronic kidney disease stage 3 subtype: unspecified whether 3a or 3b Qualified Code(s): N17.0 - Acute kidney failure with tubular necrosis; N18.30 - Chronic kidney disease, stage 3 unspecified Code(s): N17.9 - Acute kidney failure, unspecified; N18.9 - Chronic kidney disease, unspecified Status: Acute Assessment and Plan: Creatinine remains at 1.8 today, near baseline, suspect AIN with systemic eosinophilia and rash. Appreciate nephrology consultation Eosinophilia worsening, unsure of etiology, hematology/oncology consult pending Trial benadryl for itching and hydrocortisone cream for rash on arms (2) UTI (urinary tract infection) due to urinary indwelling catheter: Code(s): T83.511A - Infection and inflammatory reaction due to indwelling urethral catheter, initial encounter; N39.0 - Urinary tract infection, site not specified Status: Acute Assessment and Plan: UTI with chronic indwelling Pereira catheter. BCx NGTD. UCx growing EColi with ESBL Levaquin was started but changed to Ertapenem on 08/09, end date 08/15/22 WBC fluctuating, back up to 13 now despite completed course of antibiotics for only infection found, unsure why this leukocytosis is remaining, hematology/oncology consultation pending, will observe off antibiotics 1 more day, if leukocytosis improves his again tomorrow, will restart ertapenem and monitor response for possibly incompletely treated UTI? Repeat urine cultures pending LFTs continue to improve, would recheck in 1 week from discharge (3) Hypertension: Qualifiers: Hypertension type: unspecified Qualified Code(s): I10 - Essential (primary) hypertension Code(s): I10 - Essential (primary) hypertension Status: Chronic Assessment and Plan: Stable, continue home meds (4) Chronic obstructive pulmonary disease: Code(s): J44.9 - Chronic obstructive pulmonary disease, unspecified Status: Acute Assessment and Plan: Stable, continue home meds (5) CHF (congestive heart failure): Code(s): I50.9 - Heart failure, unspecified Status: Chronic Assessment and Plan: Echo in December 2021 showing EF 55-60% with Grade I diastolic dysfunction. Patient has acute on chronic diastolic CHF, resolved Continue diuresis with po lasix (6) Atrial fibrillation: Code(s): I48.91 - Unspecified atrial fibrillation Status: Acute Assessment and Plan: Continue Eliquis and diltiazem, currently in sinus rhythm (7) Anemia: Code(s): D64.9 - Anemia, unspecified Status: Acute Assessment and Plan: Monitor, hemoglobin stable at 8 (8) Hypothyroid: Code(s): E03.9 - Hypothyroidism, unspecified Status: Acute Assessment and Plan: TSH noted. Continue with levothyroxine. (9) Renal mass: Code(s): N28.89 - Other specified disorders of kidney and ureter Status: Acute Assessment and Plan: 6.8cm rim calcified left renal lesion likely proteinaceous/hemorrhagic cyst. No change since 12/25/2021. Unable to do an MRI or CT with contrast at this time due to renal failure. Can be further evaluate as outpatient (10) Anxiety: Code(s): F41.9 - Anxiety disorder, unspecified Status: Acute Assessment and Plan: a
--- NOTE | 2022-08-18 11:36 | PCRCNOTE ---
PATIENT GOING TO GROUP HOME. NO HOME O2 EVAL REQUIRED.
--- NOTE | 2022-08-18 11:41 | P.PNNP_ITS ---
Progress Note: A&P Assessment and Plan (1) OLIVER (acute kidney injury): Code(s): N17.9 - Acute kidney failure, unspecified Status: Acute Assessment and Plan: * resolving (if not resolved) * presumably due to acute infection/UTI * however, AIN may be strong possibility: * diffuse rash on presentation (more so in upper exremities) * peripheral eosinophilia (worse on admission but present for the last 6 months) * etiology? * s/p trial of steroids * eosinophilia and rash resolved with use * however, now off steroids, eosinophilia has recurred with rash as well * give another trial of steroids?? * cause of eosinophilia not entirely clear (as AIN does not fully explain this) * I suppose other issues such as cancer, parasites, autoimmune, adrenal insufficiency, and allergies could be at play; medications that could do this include diltiazem, omeprazole, furosemide, or certain foods as well (2) Chronic kidney disease, stage 3: Qualifiers: Chronic kidney disease stage 3 subtype: stage 3b (GFR 30-44) Qualified Code(s): N18.32 - Chronic kidney disease, stage 3b Code(s): N18.30 - Chronic kidney disease, stage 3 unspecified Status: Chronic Assessment and Plan: * creatinine had been running ~ 1.7 - 2.2mg/d * this would cause him to CKD stage 3b * probably from his HTN, vascular disease, and age (3) Acute UTI: Code(s): N39.0 - Urinary tract infection, site not specified Status: Acute Assessment and Plan: * culture with E.coli (ESBL) * finished course of antibiotics (4) Hypertension: Qualifiers: Hypertension type: unspecified Qualified Code(s): I10 - Essential (pr imary) hypertension Code(s): I10 - Essential (primary) hypertension Status: Chronic Assessment and Plan: * reasonable control * follow trend of hemodynamics (5) CHF (congestive heart failure): Code(s): I50.9 - Heart failure, unspecified Status: Chronic Assessment and Plan: * has grade 1 diastolic dysfunction * recent imaging/CXRs reviewed * on oral diuretics * follow respiratory status Will continue to follow. Subjective Date/time seen: 08/18/22 11:41 Chart reviewed since last seen -- some recurrence of pruritic rash on upper extr emities; breathing/respiratory status seems stable at the time of my visit; no issues/events overnight or earlier this AM. Exam Narrative: General: Large male in NAD Heart: IRRR, normal S1 and S2; no rub Lungs: clear bilaterally; decreased at bases Abdomen: soft, nontender, nondistended, positive bowel sounds; + colostomy Extremities: no cyanosis or clubbing; 1+ edema Skin: rash in UEs Objective Data Vital Signs Vital Signs: Vital Signs Temp Pulse Resp BP Pulse Ox O2 Del Method O2 Flow Rate 08/18/22 08:00 98 Nasal Cannula 2 08/18/22 08:20 18 08/18/22 08:12 74 18 93 Nasal Cannula 2 08/18/22 08:07 74 18 08/18/22 06:00 97.2 F L 68 22 H 130/51 L 94 08/17/22 21:59 98.5 F 80 22 H 124/47 L 92 08/17/22 20:25 70 18 08/17/22 14:00 97.6 F 70 20 123/61 97 08/17/22 19:59 69 18 08/17/22 19:59 69 18 93 2 Intake/Output Intake/Output: Intake & Output 01
--- NOTE | 2022-08-18 11:41 | PM.PNNEP ---
Progress Note: A&P Assessment and Plan (1) OLIVER (acute kidney injury): Code(s): N17.9 - Acute kidney failure, unspecified Status: Acute Assessment and Plan: resolving (if not resolved) presumably due to acute infection/UTI however, AIN may be strong possibility: diffuse rash on presentation (more so in upper exremities) peripheral eosinophilia (worse on admission but present for the last 6 months) etiology? s/p trial of steroids eosinophilia and rash resolved with use however, now off steroids, eosinophilia has recurred with rash as well give another trial of steroids?? cause of eosinophilia not entirely clear (as AIN does not fully explain this) I suppose other issues such as cancer, parasites, autoimmune, adrenal insufficiency, and allergies could be at play; medications that could do this include diltiazem, omeprazole, furosemide, or certain foods as well (2) Chronic kidney disease, stage 3: Qualifiers: Chronic kidney disease stage 3 subtype: stage 3b (GFR 30-44) Qualified Code(s): N18.32 - Chronic kidney disease, stage 3b Code(s): N18.30 - Chronic kidney disease, stage 3 unspecified Status: Chronic Assessment and Plan: creatinine had been running ~ 1.7 - 2.2mg/d this would cause him to CKD stage 3b probably from his HTN, vascular disease, and age (3) Acute UTI: Code(s): N39.0 - Urinary tract infection, site not specified Status: Acute Assessment and Plan: culture with E.coli (ESBL) finished course of antibiotics (4) Hypertension: Qualifiers: Hypertension type: unspecified Qualified Code(s): I10 - Essential (primary) hypertension Code(s): I10 - Essential (primary) hypertension Status: Chronic Assessment and Plan: reasonable control follow trend of hemodynamics (5) CHF (congestive heart failure): Code(s): I50.9 - Heart failure, unspecified Status: Chronic Assessment and Plan: has grade 1 diastolic dysfunction recent imaging/CXRs reviewed on oral diuretics follow respiratory status Will continue to follow. Subjective Date/time seen: 08/18/22 11:41 Chart reviewed since last seen -- some recurrence of pruritic rash on upper extremities; breathing/respiratory status seems stable at the time of my visit; no issues/events overnight or earlier this AM. Exam Narrative: General: Large male in NAD Heart: IRRR, normal S1 and S2; no rub Lungs: clear bilaterally; decreased at bases Abdomen: soft, nontender, nondistended, positive bowel sounds; + colostomy Extremities: no cyanosis or clubbing; 1+ edema Skin: rash in UEs Objective Data Vital Signs Vital Signs: Vital Signs Temp Pulse Resp BP Pulse Ox O2 Del Method O2 Flow Rate 08/18/22 08:00 98 Nasal Cannula 2 08/18/22 08:20 18 08/18/22 08:12 74 18 93 Nasal Cannula 2 08/18/22 08:07 74 18 08/18/22 06:00 97.2 F L 68 22 H 130/51 L 94 08/17/22 21:59 98.5 F 80 22 H 124/47 L 92 08/17/22 20:25 70 18 08/17/22 14:00 97.6 F 70 20 123/61 97 08/17/22 19:59 69 18 08/17/22 19:59 69 18 93 2 Intake/Output Intake/Output: Intake & Output 08/15/22 08/16/22 08/17/22 08/18/22 23:59 23:59 23:59 23:59 Intake Total 654 2470 1220 640 Output Total 3375 6100 3300 1500 [facility] -1410 -9716 -2080 -860 Meds/Results Medications: Active Medications Generic Name Dose Route Start Last Admin Trade Name Freq PRN Reason Stop Dose Admin Acetaminophen 650 mg 08/08/22 01:54 Acetaminophen 325 Mg Tablet PO Q6-8H PRN Pain Rated 1-3 Albuterol 2.5 mg 08/08/22 08:00 08/18/22 08:07 Albuterol Sulfate Neb 2.5 Mg/3 Ml Inh INHALATION 2.5 mg Q12HRT VAIBHAV Administration Albuterol 2 puff 08/08/22 01:54 Albuterol Sulfate (*Sp) Aerosol 1 Puff INHALATION QID PRN Shortness Of Breath Or Wheezing Apixaban
--- NOTE | 2022-08-18 12:14 | PM.PNPUL ---
Progress Note: A&P Assessment and Plan (1) Suspected sleep apnea: Code(s): R29.818 - Other symptoms and signs involving the nervous system Status: Acute Assessment and Plan: 08/17/22: this 71-year-old man is currently treated for urinary tract infection, acute kidney injury.? He has had history of paraplegia,? chronic urinary indwelling catheter.?01/18/2022: Overnight oximetry on room air: Average saturation 91%, low saturation 84%, time with saturation less than or equal to 88% was 53 minutes. 08/07/2022: Free T4 1.02, normal. TSH 5.09, high. TSH 01/03/2022 1.26, Normal. 12/27/2021, TSH 1.05, normal 08/15/2022: Overnight oximetry on 3 L nasal cannula: Average saturation 90%, low saturation 82%, time with saturation less than or equal to 88% was 37 minutes. Currently he has been on supplemental oxygen because of hypoxemia.? The patient has had no new respiratory symptoms and chest CT showed no parenchymal lung disease.? He has cardiomegaly and for previous cardiac studies he has left ventricular diastolic dysfunction, probably pulmonary hypertension as pulmonary arteries appear prominent chest CT.? patient will need split? polysomnography as outpatient. Plan; ? Continue with supplemental oxygen, measure arterial blood gases. ? [facility] before d/c home, needs to return to pulmonary clinic post discharge for workup of possible sleep disordered breathing. ABG on 2.5 L nasal cannula 7.36/47/69. there is minimal hypercarbia and on admission his serum bicarb was 25 so he does not qualify for noninvasive ventilation for obesity hypoventilation syndrome. 08/18 Patient states that he is breathing close to his normal. His lungs are clear with no wheezes. White blood cell count 12.3, creatinine 2.0. He is on 2 L nasal cannula saturations 95%. I will measured overnight oximetry tonight on 4 L. patient lives at [facility]. They will ultimately determine his oxygen requirements during the day and I will leave recommendations regarding nocturnal oxygen at night following his apnea link on 4 L. he will require an outpatient split night sleep study. Will follow with you. Subjective Date/time seen: 08/18/22 12:14 Interval history: 08/17/2022 New consult for hypoxemia and possible sleep disordered breathing ?This 71-year-old man was admitted to the hospital with increasing weakness and confusion.? The patient lives in a retirement.? Has history of paraplegia and chronic indwelling bladder catheter.? Reportedly he had no respiratory symptoms and no previous history of lung disease.? I was asked to see the patient because of hypoxemia and possibly sleep disordered breathing.? The patient stated that he had a sleep study years ago but has not been on any treatment.? Has not been on home oxygen.? During this hospitalization he has been treated for urinary tract infection acute kidney injury.? Patient is not ambulatory because of paraplegia.? He uses wheelchair.? Upon questioning he admitted having some shortness of breath and also some mild coughing over the last 6 months.? He has no orthopnea lower extremity edema or history of wheezing.? Workup during this hospitalization with a chest CT showed cardiomegaly, mildly enlarged pulmonary artery, essentially clear lung parenchyma and no pleural effusions.? He used to smoke many years ago. being treated for an E coli UTI. 08/15/2022: Overnight oximetry on 3 L nasal cannula: Average saturation 90%, low saturation 82%, time with saturation less than or equal to 88% was 37 minutes. 08/17/2022: ABG on 2.5 L nasal cannula 7.36/47/69. 08/18 Patient states that he is breathing close to his normal. His lungs are clear with no wheezes. White blood cell count 12.3, creatinine 2.0. He is on 2 L nasal cannula saturations 95%. DATA: 08/15/2022: Overnight oximetry on 3 L nasal cannula: Average saturation 90%, low saturation 82%, time w
[2022-08-18] MEDS: LORATADINE 10 MG TABLET PO (20:46)
[2022-08-18] MEDS: HYDROCORTISONE 1% 30 GM CREAM 1 APPLIC TOPICAL (20:47)
[2022-08-19] VITALS (8 sets, daily range): BP systolic 118–134; BP diastolic 46–51; PULSE 56–68; RESP 10–16; TEMP 36.3–36.7; O2SAT 87–97
[2022-08-19 06:28] LABS: Basophils Percent Auto 0.3 % (0.2-1.2); Eosinophils Absolute Auto 3.6 K/mm3 (0-0.3); Eosinophils Percent Auto 30.2 % (0-4.4); Hematocrit 28.4 % (42.0-52.0); Hemoglobin 9.1 g/dL (14.0-18.0); Immature Granulocyte Absolute 0.08 K/mm3 (0.00-0.031); Immature Granulocyte Percent A 0.7 % (0-0.5); Lymphocytes Absolute Auto 1.29 K/mm3 (0.9-3.2); Mean Corpuscular Hemoglobin 26.4 pg (26-34); Mean Corpuscular Volume 82.3 fl (80-100); Mean Platelet Volume 9.7 fl (7.4-10.4); Monocytes Absolute Auto 0.9 K/mm3 (0.1-0.6); Monocytes Percent Auto 7.8 % (2.6-8.5); Neutrophils Absolute Auto 5.9 K/mm3 (1.3-6.7); Platelet Count Result 177 k/mm3 (150-375); Red Blood Count 3.45 M/mm3 (4.6-6.20); Red Cell Distribution Width 15.5 % (11.5-14.5); White Blood Count 11.8 K/mm3 (4.5-10.0)
[2022-08-19] MEDS: dilTIAZem HCL 30 MG TABLET PO ×2 (06:30→14:38)
[2022-08-19] MEDS: LEVOTHYROXINE SODIUM 12.5 MCG TABLET PO (06:31)
[2022-08-19 06:44] LABS: Alanine Aminotransferase 34 U/L (6-50); Albumin Level 2.9 g/dL (3.5-5.1); Alkaline Phosphatase 200 U/L (38-126); Anion Gap 4 mmol/L (8-16); Aspartate Amino Transferase 22 U/L (17-59); Bilirubin,Total 0.7 mg/dL (0.2-1.3); Blood Urea Nitrogen 51 mg/dL (9-20); Calcium 6.9 mg/dL (8.4-10.2); Carbon Dioxide 28 mmol/L (22-30); Chloride 104 mmol/L (98-107); Estimated CRCL calculation 46 ml/min; Estimated Glomerular Filt Rate 33; Glucose 88 mg/dL (65-110); Potassium 3.9 mmol/L (3.4-5.0); Sodium 136 mmol/L (137-145)
[2022-08-19] MEDS: BUDESONIDE RESPULE NEB 0.5 MG/2 ML AMP INHALATION (08:18)
[2022-08-19] MEDS: UMECLIDINIUM/VILANTEROL 62.5-25 MCG ELLIPTA 1 PUFF INHALATION (08:18)
--- NOTE | 2022-08-19 08:44 | PM.PNPUL ---
Progress Note: A&P Assessment and Plan (1) Suspected sleep apnea: Code(s): R29.818 - Other symptoms and signs involving the nervous system Status: Acute Assessment and Plan: 08/17/22: this 71-year-old man is currently treated for urinary tract infection, acute kidney injury.? He has had history of paraplegia,? chronic urinary indwelling catheter.? patient has a CT scan on 08/07/2022 with mild apical centrilobular and paraseptal emphysema and an 80 pack year tobacco history. He is on bronchodilators and inhaled steroids as an outpatient and carries a diagnosis of COPD. 01/18/2022: Overnight oximetry on room air: Average saturation 91%, low saturation 84%, time with saturation less than or equal to 88% was 53 minutes. 08/07/2022: Free T4 1.02, normal. TSH 5.09, high. TSH 01/03/2022 1.26, Normal. 12/27/2021, TSH 1.05, normal 08/15/2022: Overnight oximetry on 3 L nasal cannula: Average saturation 90%, low saturation 82%, time with saturation less than or equal to 88% was 37 minutes. Currently he has been on supplemental oxygen because of hypoxemia.? The patient has had no new respiratory symptoms and chest CT showed no parenchymal lung disease.? He has cardiomegaly and for previous cardiac studies he has left ventricular diastolic dysfunction, probably pulmonary hypertension as pulmonary arteries appear prominent chest CT.? patient will need split? polysomnography as outpatient. Plan; ? Continue with supplemental oxygen, measure arterial blood gases. ? [facility] before d/c home, needs to return to pulmonary clinic post discharge for workup of possible sleep disordered breathing. ABG on 2.5 L nasal cannula 7.36/47/69. there is minimal hypercarbia and on admission his serum bicarb was 25 so he does not qualify for noninvasive ventilation for obesity hypoventilation syndrome. 08/18 Patient states that he is breathing close to his normal. His lungs are clear with no wheezes. White blood cell count 12.3, creatinine 2.0. He is on 2 L nasal cannula saturations 95%. I will measured overnight oximetry tonight on 4 L. patient lives at [facility]. They will ultimately determine his oxygen requirements during the day and I will leave recommendations regarding nocturnal oxygen at night following his apnea link on 4 L. 08/19 Patient's has no respiratory complaints. Currently on 2 L with saturations 94%. White blood cell count 11.8, creatinine 2.0. Patient had an overnight oximetry on 4 L nasal cannula with an average saturation 95%, low saturation 84%, time with saturation less than or equal to 88% was 1 minutes. Oxygen desaturation index 0.9. [facility] will determine patient's oxygen requirements at rest, with ambulation and at night per their protocol. My recommendation is 4 L nasal cannula at night. From a pulmonary perspective patient can be discharged on these pulmonary medications: Anoro Ellipta 62.5-25 at 1 puff q.day budesonide 0.5 mg nebs q.12 hours rescue albuterol 2 puffs Q i.d. p.r.n. shortness of breath or wheezing oxygen at rest and with ambulation her living facilities protocol. 4 L nasal cannula oxygen at night Follow-up in the Pulmonary Clinic in 3-4 weeks. He will require an outpatient split night sleep study. Discussed with Dr. Mack, will sign off, call with questions Subjective Date/time seen: 08/19/22 08:44 Interval history: 08/17/2022 New consult for hypoxemia and possible sleep disordered breathing ?This 71-year-old man was admitted to the hospital with increasing weakness and confusion.? The patient lives in a shelter.? Has history of paraplegia and chronic indwelling bladder catheter.? Reportedly he had no respiratory symptoms and no previous history of lung disease.? I was asked to see the patient because of hypoxemia and possibly sleep disordered breathing.? The patient stated that he had a sleep study years ago
--- NOTE | 2022-08-19 09:30 | PM.PNNEP ---
Progress Note: A&P Assessment and Plan (1) OLIVER (acute kidney injury): Code(s): N17.9 - Acute kidney failure, unspecified Status: Acute Assessment and Plan: resolving (if not resolved) presumably due to acute infection/UTI however, AIN may be strong possibility: diffuse rash on presentation (more so in upper exremities) peripheral eosinophilia (worse on admission but present for the last 6 months) etiology? s/p trial of steroids eosinophilia and rash resolved with use however, now off steroids, eosinophilia has recurred with rash as well give another trial of steroids?? cause of eosinophilia not entirely clear (as AIN does not fully explain this) I suppose other issues such as cancer, parasites, autoimmune, adrenal insufficiency, and allergies could be at play; medications that could do this include diltiazem, omeprazole, furosemide, or certain foods as well (2) Chronic kidney disease, stage 3: Qualifiers: Chronic kidney disease stage 3 subtype: stage 3b (GFR 30-44) Qualified Code(s): N18.32 - Chronic kidney disease, stage 3b Code(s): N18.30 - Chronic kidney disease, stage 3 unspecified Status: Chronic Assessment and Plan: creatinine had been running ~ 1.7 - 2.2mg/d this would cause him to CKD stage 3b probably from his HTN, vascular disease, and age (3) Acute UTI: Code(s): N39.0 - Urinary tract infection, site not specified Status: Acute Assessment and Plan: culture with E.coli (ESBL) finished course of antibiotics (4) Hypertension: Qualifiers: Hypertension type: unspecified Qualified Code(s): I10 - Essential (primary) hypertension Code(s): I10 - Essential (primary) hypertension Status: Chronic Assessment and Plan: reasonable control follow trend of hemodynamics (5) CHF (congestive heart failure): Code(s): I50.9 - Heart failure, unspecified Status: Chronic Assessment and Plan: has grade 1 diastolic dysfunction recent imaging/CXRs reviewed on oral diuretics follow respiratory status Will continue to follow. Subjective Date/time seen: 08/19/22 09:30 Breathing/respiratory status seems stable if not better; no acute issues/complaints voiced at the time of my visit; kidney function/creatinine holding steady with ongoing diuretic therapy and reasonable urine output; no events overnight or earlier this AM. Exam Narrative: General: Large male in NAD Heart: IRRR, normal S1 and S2; no rub Lungs: clear bilaterally; decreased at bases Abdomen: soft, nontender, nondistended, positive bowel sounds; + colostomy Extremities: no cyanosis or clubbing; 1+ edema Skin: rash in UEs Objective Data Vital Signs Vital Signs: Vital Signs Temp Pulse Resp BP Pulse Ox O2 Del Method O2 Flow Rate 08/19/22 09:20 91 Nasal Cannula 1 08/19/22 09:16 87 L Room Air 08/19/22 08:27 64 16 08/19/22 08:21 65 16 08/19/22 08:21 96 Nasal Cannula 2 08/19/22 06:30 56 L 118/46 L 08/19/22 06:00 98.0 F 61 14 93 08/18/22 22:00 98.8 F 70 14 132/117 H 100 08/18/22 20:00 96 Nasal Cannula 2 08/18/22 21:07 71 18 08/18/22 20:54 96 Nasal Cannula 2 08/18/22 20:54 66 18 08/18/22 14:00 97.1 F L 89 16 145/43 H 96 Intake/Output Intake/Output: Intake & Output 08/16/22 08/17/22 08/18/22 08/19/22 23:59 23:59 23:59 23:59 Intake Total 2470 1220 1098 500 Output Total 6100 3300 3000 1300 Balance -3800 -2080 -1902 -800 Meds/Results Medications: Active Medications Generic Name Dose Route Start Last Admin Trade Name Freq PRN Reason Stop Dose Admin Acetaminophen 650 mg 08/08/22 01:54 Acetaminophen 325 Mg Tablet PO Q6-8H PRN Pain Rated 1-3 Albuterol 2 puff 08/08/22 01:54 Albuterol Sulfate (*Sp) Aerosol 1 Puff INHALATION QID PRN Shortness Of [place]
--- NOTE | 2022-08-19 09:30 | P.PNNP_ITS ---
Progress Note: A&P Assessment and Plan (1) OLIVER (acute kidney injury): Code(s): N17.9 - Acute kidney failure, unspecified Status: Acute Assessment and Plan: * resolving (if not resolved) * presumably due to acute infection/UTI * however, AIN may be strong possibility: * diffuse rash on presentation (more so in upper exremities) * peripheral eosinophilia (worse on admission but present for the last 6 months) * etiology? * s/p trial of steroids * eosinophilia and rash resolved with use * however, now off steroids, eosinophilia has recurred with rash as well * give another trial of steroids?? * cause of eosinophilia not entirely clear (as AIN does not fully explain this) * I suppose other issues such as cancer, parasites, autoimmune, adrenal insufficiency, and allergies could be at play; medications that could do this include diltiazem, omeprazole, furosemide, or certain foods as well (2) Chronic kidney disease, stage 3: Qualifiers: Chronic kidney disease stage 3 subtype: stage 3b (GFR 30-44) Qualified Code(s): N18.32 - Chronic kidney disease, stage 3b Code(s): N18.30 - Chronic kidney disease, stage 3 unspecified Status: Chronic Assessment and Plan: * creatinine had been running ~ 1.7 - 2.2mg/d * this would cause him to CKD stage 3b * probably from his HTN, vascular disease, and age (3) Acute UTI: Code(s): N39.0 - Urinary tract infection, site not specified Status: Acute Assessment and Plan: * culture with E.coli (ESBL) * finished course of antibiotics (4) Hypertension: Qualifiers: Hypertension type: unspecified Qualified Code(s): I10 - Essential (pr imary) hypertension Code(s): I10 - Essential (primary) hypertension Status: Chronic Assessment and Plan: * reasonable control * follow trend of hemodynamics (5) CHF (congestive heart failure): Code(s): I50.9 - Heart failure, unspecified Status: Chronic Assessment and Plan: * has grade 1 diastolic dysfunction * recent imaging/CXRs reviewed * on oral diuretics * follow respiratory status Will continue to follow. Subjective Date/time seen: 08/19/22 09:30 Breathing/respiratory status seems stable if not better; no acute issues/complai nts voiced at the time of my visit; kidney function/creatinine holding steady with ongoing diuretic therapy and reasonable urine output; no events overnight or earlier this AM. Exam Narrative: General: Large male in NAD Heart: IRRR, normal S1 and S2; no rub Lungs: clear bilaterally; decreased at bases Abdomen: soft, nontender, nondistended, positive bowel sounds; + colostomy Extremities: no cyanosis or clubbing; 1+ edema Skin: rash in UEs Objective Data Vital Signs Vital Signs: Vital Signs Temp Pulse Resp BP Pulse Ox O2 Del Method O2 Flow Rate 08/19/22 09:20 91 Nasal Cannula 1 08/19/22 09:16 87 L Room Air 08/19/22 08:27 64 16 08/19/22 08:21 65 16 08/19/22 08:21 96 Nasal Cannula 2 08/19/22 06:30 56 L 118/46 L 08/19/22 06:00 98.0 F 61 14 93 08/18/22 22:00 98.8 F 70 14 132/117 H 100 08/18/22 20:00 96 Nasal Cannula 2 08/18/22 21:07 71 18 08/18/22 20:54 96 Nasal Cannula 2 08/18/22 20:54 66 1
[2022-08-19] MEDS: guaiFENesin 600 MG/DEXTROMETHORPHAN 30 MG SR TAB 12 HR 1 TAB PO (09:35)
[2022-08-19] MEDS: ATORVASTATIN 10 MG TABLET PO (09:35)
[2022-08-19] MEDS: BACLOFEN 10 MG TABLET PO ×2 (09:35→18:09)
[2022-08-19] MEDS: CYANOCOBALAMIN 1,000 MCG TABLET 1000 MCG PO (09:35)
[2022-08-19] MEDS: APIXABAN 2.5 MG TABLET PO (09:35)
[2022-08-19] MEDS: BUMETANIDE 1 MG TABLET PO (09:35)
[2022-08-19] MEDS: PANTOPRAZOLE 40 MG TABLET PO (09:35)
[2022-08-19] MEDS: FERROUS SULFATE 324 MG TABLET PO (09:35)
[2022-08-19] MEDS: MAGNESIUM OXIDE 400 MG TABLET PO (09:35)
[2022-08-19] MEDS: HYDROCORTISONE 1% 30 GM CREAM 1 APPLIC TOPICAL (09:36)
[2022-08-19] MEDS: FLUTICASONE PROPIONATE 0.05% NA SPR 16 GM BTL (*BKC) 1 SPRAY NASAL (09:36)
[2022-08-19] MEDS: EUCERIN CREAM 120 GM JAR 1 APPLIC TOPICAL (09:36)
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
[2022-08-19] MEDS: diphenhydrAMINE HCl CAP 25 MG CAPSULE 12.5 MG PO (14:39)
[2022-08-19 17:03] LABS: EDCOVIDSCREEN Negative (Negative)
[2022-08-21 13:03] LABS: Creatinine, Random Urine 166 mg/dL (20-320); Total Protein/Creatinine Ratio 1458 mg/g creat (25-148)
== END 2022-08-19 19:56 | DRG 698 ==
LOC: ANHED 16:54 → ANH3MEDSUR 18:50
PROVIDERS: Emergency Medicine; Internal Medicine; Internal Medicine Pulmonary Disease; Nurse Practitioner; Admitting Provider Internal Medicine; Emergency Provider Emergency Medicine; PCP Internal Medicine; Visit Provider Student in an Organized Health Care Education/Training Program
DX: T83.511A Infection and inflammatory reaction due to indwelling urethral catheter, initial encounter (principal); I50.33 Acute on chronic diastolic (congestive) heart failure; N17.0 Acute kidney failure with tubular necrosis; J96.92 Respiratory failure, unspecified with hypercapnia; J96.91 Respiratory failure, unspecified with hypoxia; Z16.12 Extended spectrum beta lactamase (ESBL) resistance; I13.0 Hypertensive heart and chronic kidney disease with heart failure and stage 1 through stage 4 chronic kidney disease, or unspecified chronic kidney disease; G82.20 Paraplegia, unspecified; Z68.41 Body mass index [BMI] 40.0-44.9, adult; J98.11 Atelectasis; N39.0 Urinary tract infection, site not specified; B96.20 Unspecified Escherichia coli [E. coli] as the cause of diseases classified elsewhere; N18.32 Chronic kidney disease, stage 3b; J43.9 Emphysema, unspecified; K21.9 Gastro-esophageal reflux disease without esophagitis; E03.9 Hypothyroidism, unspecified; D63.1 Anemia in chronic kidney disease; I48.91 Unspecified atrial fibrillation; E87.5 Hyperkalemia; Z20.822 Contact with and (suspected) exposure to COVID-19; E66.9 Obesity, unspecified; F41.9 Anxiety disorder, unspecified; D72.10 Eosinophilia, unspecified; Z82.49 Family history of ischemic heart disease and other diseases of the circulatory system; Z83.3 Family history of diabetes mellitus; Z82.3 Family history of stroke; Z87.891 Personal history of nicotine dependence; Z79.899 Other long term (current) drug therapy; Z79.51 Long term (current) use of inhaled steroids; Z88.5 Allergy status to narcotic agent
CPT/HCPCS: 36415; 36600; 70450; 71045; 71046; 71250; 74176; 76536; 76775; 80048; 80053; 80069; 80076; 81001; 82274; 82436; 82533; 82550; 82570; 82595; 82784; 82787; 82805; 83520; 83605; 83735; 83880; 83930; 83935; 84100; 84133; 84145; 84155; 84156; 84165; 84166; 84300; 84439; 84443; 84480; 85025; 85652; 85999; 86036; 86038; 86060; 86140; 86160; 86162; 86215; 86225; 86235; 86334; 86335; 86703; 86705; 86706; 86803; 87040; 87077; 87086; 87088; 87186; 87340; 87426; 87636; 88184; 88185; 92610; 93005; 93970; 94640; 94762; 97161; 97165; 99285; A9270; C9803; G0432; J1335; J1956; J3475; J7030; J7512

== ENCOUNTER 2022-09-23 13:44 | Outpatient (CLI) | payer MEDICARE, BC, MEDICAID, SELFPAY ==
[2022-09-23 14:15] LABS: Hemoglobin 8.8 g/dL (14.0-18.0); Mean Corpuscular HGB Conc 32.6 g/dl (32-36); Mean Corpuscular Hemoglobin 26.3 pg (26-34); Mean Corpuscular Volume 80.8 fl (80-100); Mean Platelet Volume 8.9 fl (7.4-10.4); Platelet Count Result 259 k/mm3 (150-375); Red Blood Count 3.34 M/mm3 (4.6-6.20); Red Cell Distribution Width 15.6 % (11.5-14.5); White Blood Count 11.7 K/mm3 (4.5-10.0)
[2022-09-23 16:57] LABS: Anion Gap 9 mmol/L (8-16); Blood Urea Nitrogen 41 mg/dL (9-20); Calcium 7.9 mg/dL (8.4-10.2); Carbon Dioxide 30 mmol/L (22-30); Chloride 91 mmol/L (98-107); Estimated Glomerular Filt Rate 40; Glucose 109 mg/dL (65-110); Potassium 3.9 mmol/L (3.4-5.0); Sodium 130 mmol/L (137-145)
[2022-09-23 17:06] LABS: Iron 37 ug/dL (49-181); Percent Iron Saturation 12 % (20-50)
== END 2022-09-23 13:45 | disposition home or self-care (01) ==
PROVIDERS: PCP Internal Medicine; Visit Provider Internal Medicine Hematology & Oncology
DX: D64.9 Anemia, unspecified (principal); D72.10 Eosinophilia, unspecified
CPT/HCPCS: 36415; 80048; 82607; 82728; 83540; 83550; 85027; 88271; 88275

== ENCOUNTER 2022-10-31 09:57 | Outpatient (CLI) | payer MEDICARE, BC, MEDICAID, SELFPAY ==
[2022-10-31 10:14] LABS: Basophils Absolute Auto 0.1 K/mm3 (0.0-0.1); Basophils Percent Auto 0.6 % (0.2-1.2); Eosinophils Absolute Auto 0.5 K/mm3 (0-0.3); Eosinophils Percent Auto 6.6 % (0-4.4); Hematocrit 27.3 % (42.0-52.0); Hemoglobin 8.8 g/dL (14.0-18.0); Immature Granulocyte Absolute 0.03 K/mm3 (0.00-0.031); Immature Granulocyte Percent A 0.4 % (0-0.5); Lymphocytes Absolute Auto 1.26 K/mm3 (0.9-3.2); Lymphocytes Percent Auto 16.2 % (18.3-44.2); Mean Corpuscular HGB Conc 32.2 g/dl (32-36); Mean Corpuscular Hemoglobin 26.2 pg (26-34); Mean Corpuscular Volume 81.3 fl (80-100); Mean Platelet Volume 8.4 fl (7.4-10.4); Monocytes Absolute Auto 0.7 K/mm3 (0.1-0.6); Monocytes Percent Auto 8.8 % (2.6-8.5); Neutrophils Absolute Auto 5.2 K/mm3 (1.3-6.7); Neutrophils Percent Auto 67.4 % (45.5-73.1); Platelet Count Result 198 k/mm3 (150-375); Red Blood Count 3.36 M/mm3 (4.6-6.20); Red Cell Distribution Width 15.3 % (11.5-14.5); White Blood Count 7.8 K/mm3 (4.5-10.0)
[2022-10-31 11:13] LABS: Anion Gap 9 mmol/L (8-16); Blood Urea Nitrogen 27 mg/dL (9-20); Calcium 8.2 mg/dL (8.4-10.2); Carbon Dioxide 28 mmol/L (22-30); Chloride 97 mmol/L (98-107); Estimated Glomerular Filt Rate 43; Glucose 131 mg/dL (65-110); Potassium 4.3 mmol/L (3.4-5.0); Sodium 134 mmol/L (137-145)
== END 2022-10-31 09:58 | disposition home or self-care (01) ==
LOC: ANHLAB 10:00
PROVIDERS: PCP Internal Medicine; Visit Provider Internal Medicine Hematology & Oncology
DX: D64.9 Anemia, unspecified (principal)
CPT/HCPCS: 36415; 80048; 85025

== ENCOUNTER 2022-11-15 17:44 | Emergency (ER) | payer MEDICARE, BC, MEDICAID, SELFPAY ==
[2022-11-15] VITALS (11 sets, daily range): BP systolic 126–144; BP diastolic 61–99; PULSE 63–74; RESP 12–20; TEMP 36.7; O2SAT 95–100
--- NOTE | 2022-11-15 19:07 | ED.GENADULT ---
HPI - General Adult General Chief complaint: Urogenital-Male <Xavier Frias PA-C - Last Filed: 11/15/22 23:54> Stated complaint: Bleeding from penis <Xavier Frias PA-C - Last Filed: 11/15/22 23:54> Time Seen by Provider: 11/15/22 18:36 <Xavier Frias PA-C - Last Filed: 11/15/22 23:54> Source: patient <Xavier Frias PA-C - Last Filed: 11/15/22 23:54> Mode of arrival: ambulatory <Xavier Frias PA-C - Last Filed: 11/15/22 23:54> Limitations: no limitations <Xavier Frias PA-C - Last Filed: 11/15/22 23:54> History of Present Illness HPI narrative: This is a 71-year-old male with chronic indwelling catheter for neurogenic bladder who presents to the ED from halfway via EMS for chief complaint of hematuria x3 days. Patient reports halfway staff was doing a Pereira change few days ago and accidentally put a 24 [place] when he normally uses a 16 [place]. He feels that the bleeding started after this catheter placement. He states that they took this out and then switch back to a 16. He states that this initially cleared up the bleeding yesterday, but still had some blood around the meatus so his halfway sent him here for further evaluation. He reports some discomfort in the penis. Denies abdominal pain, fevers, chills, nausea, vomiting. <Xavier Frias PA-C - Last Filed: 11/15/22 23:54> Related Data Home medications: Home Medications Medication Instructions Recorded Confirmed albuterol sulfate 90 mcg/actuation 2 puff inhalation QID PRN 04/26/20 10/08/22 aerosol inhaler (Ventolin HFA) Shortness Of Breath Or Wheezing apixaban 2.5 mg tablet (Eliquis) 2.5 mg PO Q12H 04/26/20 10/08/22 atorvastatin 10 mg tablet 10 mg PO DAILY 04/26/20 10/08/22 levothyroxine 25 mcg tablet 13 mcg PO DAILY 04/26/20 10/08/22 ascorbic acid (vitamin C) 500 mg 500 mg PO DAILY 12/26/21 10/08/22 capsule,extended release ferrous sulfate 325 mg (65 mg 325 mg PO DAILY 12/26/21 10/08/22 iron) tablet fluticasone propionate 50 1 spray intranasal DAILY 12/26/21 10/08/22 mcg/actuation nasal spray,suspension furosemide 40 mg tablet 40 mg PO DAILY 12/26/21 10/08/22 guaifenesin 600 mg tablet, 600 mg PO Q12H 12/26/21 10/08/22 extended release 12 hr (Mucinex) omeprazole 20 mg capsule,delayed 20 mg PO DAILY 12/26/21 10/08/22 release umeclidinium 62.5 mcg-vilanterol 1 inh inhalation DAILY 12/26/21 10/08/22 25 mcg/actuation powdr for inhalation (Anoro Ellipta) cranberry extract 425 mg capsule 425 mg PO BIDWM 01/02/22 10/08/22 meclizine 12.5 mg tablet 12.5 mg PO TID PRN Dizziness 01/02/22 10/08/22 albuterol sulfate 2.5 mg/3 mL 2.5 mg inhalation Q12H 08/07/22 10/08/22 (0.083 %) solution for nebulization budesonide 0.5 mg/2 mL suspension 0.5 mg inhalation Q12H 08/07/22 10/08/22 for nebulization (Pulmicort) calcium carbonate 300 mg (750 mg) 300 mg PO TID 08/07/22 10/08/22 chewable tablet (Antacid Extra Strength (calcium carb)) cetirizine 10 mg capsule (All Day 10 mg PO DAILY 08/07/22 10/08/22 Allergy (cetirizine)) cyanocobalamin (vitamin B-12) 1,000 mcg PO DAILY 08/07/22 10/08/22 1,000 mcg tablet diclofenac sodium 1 % topical gel 2 g topical BID 08/07/22 10/08/22 (Voltaren Arthritis Pain) ergocalciferol (vitamin D2) 50,000 50,000 unit PO WEEKLY 08/07/22 10/08/22 unit tablet gabapentin 400 mg capsule 200 mg PO QPM 08/07/22 10/08/22 ipratropium bromide 0.02 % 0.5 mg inhalation Q6H PRN 08/07/22 10/08/22 solution for inhalation shortness of breath or wheezing lanolin alcohols-mineral 1 applic topical DAILY 08/07/22 10/08/22 oil-w.petrolatum-ceresin topical cream (Eucerin topical cream) loratadine 10 mg tablet (Allergy 10 mg PO HS 08/07/22 10/08/22 Relief (loratadine)) montelukast 10 mg tablet 10 mg PO DAILY 08/07/22 10/08/22 white petrolatum 43 % topical 1 applic topical BID 08/07/22 10/08/22 ointment <Xavier Frias PA-C - Last Filed: 11/15/22 23:54> Allergies/ad
[2022-11-15 19:11] LABS: Basophils Percent Auto 0.2 % (0.2-1.2); Eosinophils Absolute Auto 0.4 K/mm3 (0-0.3); Eosinophils Percent Auto 4.1 % (0-4.4); Hematocrit 26.6 % (42.0-52.0); Immature Granulocyte Absolute 0.02 K/mm3 (0.00-0.031); Immature Granulocyte Percent A 0.2 % (0-0.5); Lymphocytes Absolute Auto 1.22 K/mm3 (0.9-3.2); Mean Corpuscular HGB Conc 33.8 g/dl (32-36); Mean Corpuscular Hemoglobin 26.3 pg (26-34); Mean Corpuscular Volume 77.8 fl (80-100); Mean Platelet Volume 9.6 fl (7.4-10.4); Monocytes Absolute Auto 0.7 K/mm3 (0.1-0.6); Monocytes Percent Auto 7.9 % (2.6-8.5); Neutrophils Absolute Auto 6.4 K/mm3 (1.3-6.7); Neutrophils Percent Auto 73.6 % (45.5-73.1); Platelet Count Result 237 k/mm3 (150-375); Red Blood Count 3.42 M/mm3 (4.6-6.20); Red Cell Distribution Width 15.8 % (11.5-14.5); White Blood Count 8.7 K/mm3 (4.5-10.0)
[2022-11-15 19:24] LABS: Alanine Aminotransferase 18 U/L (6-50); Albumin Level 4.1 g/dL (3.5-5.1); Alkaline Phosphatase 169 U/L (38-126); Anion Gap 8 mmol/L (8-16); Aspartate Amino Transferase 20 U/L (17-59); Bilirubin,Total 0.6 mg/dL (0.2-1.3); Blood Urea Nitrogen 32 mg/dL (9-20); Calcium 8.4 mg/dL (8.4-10.2); Carbon Dioxide 29 mmol/L (22-30); Chloride 89 mmol/L (98-107); Estimated Glomerular Filt Rate 40; Glucose 102 mg/dL (65-110); Sodium 126 mmol/L (137-145)
[2022-11-15 19:28] LABS: INR 1.3; Prothrombin Time 16.5 Seconds (11.1-14.7)
[2022-11-15] MEDS: LIDOCAINE HCL 2% GEL UROJET 10 ML PKG (20:41)
[2022-11-15 21:15] LABS: Appearance Urine Clear (Clear); Bacteria Urine None Seen /hpf; Bilirubin Urine Negative (Negative); Blood Urine 3+ (Negative); Color Urine Yellow (Yellow); Glucose Urine UA Negative (Negative); Ketones Urine Negative (Negative); Leukocyte Esterase Ur 2+ LEU/UL (Negative); Nitrate Urine Negative (Negative); Non Pathogenic Casts 0-2; Protein Urine 1+ mg/dL (Negative); RBC Urine >100 /hpf (0-2); Specific Grav Ur 1.009 (1.001-1.035); Squamous Epithelial Cell Urine None seen /hpf (Few); Urobilinogen Urine 0.2 mg/dL (<2.0)
[2022-11-15 21:24] LABS: Add Urine Microscopic? YES
--- NOTE | 2022-11-16 00:34 | PC.NURSE ---
MCKENNA Rodriguez at [facility] notified of pt d/c and instruction for antibiotic to be filled and was sent to pharmacy.Jennifer made aware the pt had urinary catheter placed and the is was a 14FR coude with 10ml balloon and to follow up with Urologist. MCKENNA Rodriguez verbalized understanding of d/c instructions and that ambulance for transfer back to [facility] until approximately 0400.
[2022-11-16 02:27] VITALS: PULSE 59; RESP 12; O2SAT 98
[2022-11-16 03:31] VITALS: BP 130/52; PULSE 58; RESP 16; O2SAT 100
== END 2022-11-16 03:36 ==
PROVIDERS: Emergency Provider Physician Assistant
DX: N30.01 Acute cystitis with hematuria (principal); N31.9 Neuromuscular dysfunction of bladder, unspecified; I48.91 Unspecified atrial fibrillation; D64.9 Anemia, unspecified; I13.0 Hypertensive heart and chronic kidney disease with heart failure and stage 1 through stage 4 chronic kidney disease, or unspecified chronic kidney disease; N18.9 Chronic kidney disease, unspecified; I50.9 Heart failure, unspecified; J43.9 Emphysema, unspecified; K21.9 Gastro-esophageal reflux disease without esophagitis; E61.1 Iron deficiency; E53.8 Deficiency of other specified B group vitamins; E55.9 Vitamin D deficiency, unspecified; Z87.01 Personal history of pneumonia (recurrent); Z86.16 Personal history of COVID-19; G62.9 Polyneuropathy, unspecified; I73.9 Peripheral vascular disease, unspecified; Z90.49 Acquired absence of other specified parts of digestive tract; Z89.412 Acquired absence of left great toe; Z79.01 Long term (current) use of anticoagulants
CPT/HCPCS: 36415; 51703; 80053; 81001; 85025; 85610; 87077; 87086; 87186; 96365; 99284; J0696

== ENCOUNTER 2022-11-17 21:29 | Emergency (ER) | payer MEDICARE, BC, MEDICAID, SELFPAY ==
[2022-11-17 21:31] VITALS: BP 129/87; PULSE 70; RESP 19; TEMP 36.3; O2SAT 100
--- NOTE | 2022-11-17 22:05 | ED.GENADULT ---
HPI - General Adult General Chief complaint: Urogenital-Male <Xavier Frias PA-C - Last Filed: 11/18/22 02:21> Stated complaint: BLOOD IN BUCKNER CATH <Xavier Frias PA-C - Last Filed: 11/18/22 02:21> Time Seen by Provider: 11/17/22 21:50 <Xavier Frias PA-C - Last Filed: 11/18/22 02:21> Source: patient <AMBER Keene Last Filed: 11/18/22 02:21> Mode of arrival: ambulatory <AMBER Keene Last Filed: 11/18/22 02:21> Limitations: no limitations <AMBER Keene Last Filed: 11/18/22 02:21> History of Present Illness HPI narrative: This is a 71-year-old male with PMH of paraplegia, chronic indwelling catheter who presents to the ED via EMS from snf with chief complaint of hematuria onset x5 days. He was seen here 2 nights ago for the same. He states he was sent again because the staff noticed some clots that passed through the catheter tubing. Denies any problems with catheter draining. Again patient reports that he is otherwise asymptomatic. Denies any urinary pain or burning at this point. Denies abdominal pain. Denies fevers, chills. <Xavier Frias PA-C - Last Filed: 11/18/22 02:21> Related Data Home medications: Home Medications Medication Instructions Recorded Confirmed albuterol sulfate 90 mcg/actuation 2 puff inhalation QID PRN 04/26/20 10/08/22 aerosol inhaler (Ventolin HFA) Shortness Of Breath Or Wheezing apixaban 2.5 mg tablet (Eliquis) 2.5 mg PO Q12H 04/26/20 10/08/22 atorvastatin 10 mg tablet 10 mg PO DAILY 04/26/20 10/08/22 levothyroxine 25 mcg tablet 13 mcg PO DAILY 04/26/20 10/08/22 ascorbic acid (vitamin C) 500 mg 500 mg PO DAILY 12/26/21 10/08/22 capsule,extended release ferrous sulfate 325 mg (65 mg 325 mg PO DAILY 12/26/21 10/08/22 iron) tablet fluticasone propionate 50 1 spray intranasal DAILY 12/26/21 10/08/22 mcg/actuation nasal spray,suspension furosemide 40 mg tablet 40 mg PO DAILY 12/26/21 10/08/22 guaifenesin 600 mg tablet, 600 mg PO Q12H 12/26/21 10/08/22 extended release 12 hr (Mucinex) omeprazole 20 mg capsule,delayed 20 mg PO DAILY 12/26/21 10/08/22 release umeclidinium 62.5 mcg-vilanterol 1 inh inhalation DAILY 12/26/21 10/08/22 25 mcg/actuation powdr for inhalation (Anoro Ellipta) cranberry extract 425 mg capsule 425 mg PO BIDWM 01/02/22 10/08/22 meclizine 12.5 mg tablet 12.5 mg PO TID PRN Dizziness 01/02/22 10/08/22 albuterol sulfate 2.5 mg/3 mL 2.5 mg inhalation Q12H 08/07/22 10/08/22 (0.083 %) solution for nebulization budesonide 0.5 mg/2 mL suspension 0.5 mg inhalation Q12H 08/07/22 10/08/22 for nebulization (Pulmicort) calcium carbonate 300 mg (750 mg) 300 mg PO TID 08/07/22 10/08/22 chewable tablet (Antacid Extra Strength (calcium carb)) cetirizine 10 mg capsule (All Day 10 mg PO DAILY 08/07/22 10/08/22 Allergy (cetirizine)) cyanocobalamin (vitamin B-12) 1,000 mcg PO DAILY 08/07/22 10/08/22 1,000 mcg tablet diclofenac sodium 1 % topical gel 2 g topical BID 08/07/22 10/08/22 (Voltaren Arthritis Pain) ergocalciferol (vitamin D2) 50,000 50,000 unit PO WEEKLY 08/07/22 10/08/22 unit tablet gabapentin 400 mg capsule 200 mg PO QPM 08/07/22 10/08/22 ipratropium bromide 0.02 % 0.5 mg inhalation Q6H PRN 08/07/22 10/08/22 solution for inhalation shortness of breath or wheezing lanolin alcohols-mineral 1 applic topical DAILY 08/07/22 10/08/22 oil-w.petrolatum-ceresin topical cream (Eucerin topical cream) loratadine 10 mg tablet (Allergy 10 mg PO HS 08/07/22 10/08/22 Relief (loratadine)) montelukast 10 mg tablet 10 mg PO DAILY 08/07/22 10/08/22 white petrolatum 43 % topical 1 applic topical BID 08/07/22 10/08/22 ointment <Xavier Frias PA-C - Last Filed: 11/18/22 02:21> Allergies/adverse reactions: Allergies Allergy/AdvReac Type Severity Reaction Status Date / Time azithromycin Allergy Unknown Verified 11/15/22 17:45 [From Zithromax Z-Benny] code
--- NOTE | 2022-11-17 23:27 | PC.NURSE ---
Report given to MCKENNA Sheppard at this time.
[2022-11-17 23:53] VITALS: BP 135/59; PULSE 68; RESP 18; TEMP 36.6; O2SAT 97
[2022-11-18 00:01] LABS: Basophils Absolute Auto 0.1 K/mm3 (0.0-0.1); Basophils Percent Auto 0.4 % (0.2-1.2); Eosinophils Absolute Auto 0.4 K/mm3 (0-0.3); Eosinophils Percent Auto 3.4 % (0-4.4); Hematocrit 23.6 % (42.0-52.0); Hemoglobin 8.1 g/dL (14.0-18.0); Immature Granulocyte Absolute 0.06 K/mm3 (0.00-0.031); Immature Granulocyte Percent A 0.5 % (0-0.5); Lymphocytes Absolute Auto 2.04 K/mm3 (0.9-3.2); Lymphocytes Percent Auto 16.9 % (18.3-44.2); Mean Corpuscular HGB Conc 34.3 g/dl (32-36); Mean Corpuscular Hemoglobin 26.3 pg (26-34); Mean Corpuscular Volume 76.6 fl (80-100); Monocytes Absolute Auto 0.8 K/mm3 (0.1-0.6); Monocytes Percent Auto 6.2 % (2.6-8.5); Neutrophils Absolute Auto 8.8 K/mm3 (1.3-6.7); Neutrophils Percent Auto 72.6 % (45.5-73.1); Platelet Count Result 249 k/mm3 (150-375); Red Blood Count 3.08 M/mm3 (4.6-6.20); Red Cell Distribution Width 15.5 % (11.5-14.5); White Blood Count 12.1 K/mm3 (4.5-10.0)
[2022-11-18 00:06] LABS: Alanine Aminotransferase 15 U/L (6-50); Albumin Level 3.8 g/dL (3.5-5.1); Alkaline Phosphatase 140 U/L (38-126); Anion Gap 6 mmol/L (8-16); Aspartate Amino Transferase 18 U/L (17-59); Bilirubin,Total 0.5 mg/dL (0.2-1.3); Blood Urea Nitrogen 30 mg/dL (9-20); Calcium 8.2 mg/dL (8.4-10.2); Carbon Dioxide 30 mmol/L (22-30); Chloride 91 mmol/L (98-107); Estimated CRCL calculation 53 ml/min; Estimated Glomerular Filt Rate 40; Glucose 102 mg/dL (65-110); INR 1.2; Potassium 3.8 mmol/L (3.4-5.0); Prothrombin Time 15.3 Seconds (11.1-14.7); Sodium 127 mmol/L (137-145)
[2022-11-18 00:09] LABS: Appearance Urine Turbid (Clear); Bacteria Urine 4+ /hpf; Bilirubin Urine Negative (Negative); Blood Urine 3+ (Negative); Color Urine Yellow (Yellow); Glucose Urine UA Negative (Negative); Ketones Urine Negative (Negative); Leukocyte Esterase Ur 3+ LEU/UL (Negative); Need Manual Microscopic Reviewed; Nitrate Urine Negative (Negative); Protein Urine Negative (Negative); Specific Grav Ur 1.009 (1.001-1.035); Squamous Epithelial Cell Urine None seen /hpf (Few); Urobilinogen Urine 0.2 mg/dL (<2.0); WBC Urine >100 /hpf; pH Urine 5.5 (5.0-9.0)
[2022-11-18 00:11] LABS: Add Urine Microscopic? YES
[2022-11-18 01:05] VITALS: PULSE 69; RESP 17; O2SAT 98
[2022-11-18 02:29] VITALS: BP 123/65; PULSE 66; RESP 17; O2SAT 96
[2022-11-18 03:26] VITALS: BP 130/56; PULSE 65; RESP 15; O2SAT 97
[2022-11-18 03:42] VITALS: BP 137/61; PULSE 66; RESP 16; TEMP 36.4; O2SAT 97
== END 2022-11-18 04:03 ==
PROVIDERS: Emergency Provider Physician Assistant; PCP Internal Medicine
DX: R31.9 Hematuria, unspecified (principal); I48.91 Unspecified atrial fibrillation; I13.0 Hypertensive heart and chronic kidney disease with heart failure and stage 1 through stage 4 chronic kidney disease, or unspecified chronic kidney disease; N18.9 Chronic kidney disease, unspecified; I50.9 Heart failure, unspecified; G82.22 Paraplegia, incomplete; S24.154S Other incomplete lesion at T11-T12 level of thoracic spinal cord, sequela; J43.9 Emphysema, unspecified; E03.9 Hypothyroidism, unspecified; G62.9 Polyneuropathy, unspecified; I73.9 Peripheral vascular disease, unspecified; E53.8 Deficiency of other specified B group vitamins; E55.9 Vitamin D deficiency, unspecified; E61.1 Iron deficiency; D64.9 Anemia, unspecified; N31.9 Neuromuscular dysfunction of bladder, unspecified; K21.9 Gastro-esophageal reflux disease without esophagitis; Z93.3 Colostomy status; Z96.0 Presence of urogenital implants; Z86.16 Personal history of COVID-19; Z87.01 Personal history of pneumonia (recurrent); Z87.891 Personal history of nicotine dependence; Z90.49 Acquired absence of other specified parts of digestive tract; Z89.412 Acquired absence of left great toe; Z79.01 Long term (current) use of anticoagulants; V29.99XS Rider (driver) (passenger) of other motorcycle injured in unspecified traffic accident, sequela
CPT/HCPCS: 36415; 80053; 81001; 85025; 85610; 87077; 87086; 87186; 99283

== ENCOUNTER 2023-03-09 23:23 | Emergency (ER) | payer MEDICARE, BC, MEDICAID, SELFPAY ==
--- NOTE | ~2023-03-09 | CT_ITS ---
EXAMINATION: CT brain wo con DATE: 03/10/2023 02:11 INDICATION: Vertigo. TECHNIQUE: Computed tomography (CT) of the head was performed without intravenous contrast. The mA wa s adjusted according to patient size. Iterative reconstruction technique was employed. The dose-lengt h product was 756.67 mGy-cm. COMPARISON: Head CT 08/07/2022 FINDINGS: There is no intracranial hemorrhage, acute infarction, or abnormal intracranial mass lesion . There are scattered areas of low attenuation in the cerebral white matter, which is within normal l imits for the patient's age. The ventricles are normal in size. There is mucosal thickening in the pa ranasal sinuses. The orbits are normal. There is a trace right mastoid effusion. IMPRESSION: 1. Normal aging brain. Reviewed, dictated and finalized at location A. IMPRESSION: 1. Normal aging brain.
--- NOTE | ~2023-03-09 | XR_ITS ---
EXAMINATION: XR chest 1V DATE: 03/10/2023 02:12 INDICATION: Vertigo. Dizziness. Cough. TECHNIQUE: A single frontal view of the chest was obtained. COMPARISON: Chest single view 08/16/2022, chest CT 08/07/2022 FINDINGS: A calcified right lung nodule is consistent with old granulomatous disease. There is mild a telectasis in the lower lung zones. No pleural effusion or pneumothorax. The heart size is normal. Fi xation wires overlie the spine. IMPRESSION: 1. Mild atelectasis in the lower lung zones. Reviewed, dictated and finalized at location A.
[2023-03-09 23:28] VITALS: BP 155/49; PULSE 78; RESP 19; TEMP 36.8; O2SAT 95
[2023-03-09 23:31] VITALS: PULSE 77
[2023-03-09 23:57] VITALS: PULSE 76; RESP 19; O2SAT 94
[2023-03-10] VITALS (7 sets, daily range): BP systolic 160–190; BP diastolic 56–65; PULSE 67–76; RESP 16–22; TEMP 36.6; O2SAT 93–100
--- NOTE | 2023-03-10 02:28 | ED.GENADULT ---
HPI - General Adult General Chief complaint: Dizziness Stated complaint: DIZZINESS Time Seen by Provider: 03/10/23 01:01 History of Present Illness HPI narrative: this is a 69-year-old male from the [place] [facility] presenting for an episode of dizziness. Patient says that while he is watching TV became dizzy and lightheaded for approximately 45 minutes. This was not associated with any neurologic findings. He then improved on his own. senior living called EMS to have him evaluated. There was some concern that he would have a UTI with his chronic indwelling Pereira. At this time patient denies fever chills nausea vomiting diarrhea, double vision dysarthria dysphagia chest pain difficulty breathing or abdominal pain. Related Data Home Medications Medication Instructions Recorded Confirmed atorvastatin 10 mg tablet 10 mg PO DAILY 04/26/20 02/19/23 ascorbic acid (vitamin C) 500 mg 500 mg PO DAILY 12/26/21 02/19/23 capsule,extended release ferrous sulfate 325 mg (65 mg 325 mg PO DAILY 12/26/21 02/19/23 iron) tablet furosemide 40 mg tablet 40 mg PO DAILY 12/26/21 02/19/23 guaifenesin 600 mg tablet, 600 mg PO Q12H PRN Cough 12/26/21 02/19/23 extended release 12 hr (Mucinex) calcium carbonate 300 mg (750 mg) 300 mg PO TID 08/07/22 02/18/23 chewable tablet (Antacid Extra Strength (calcium carb)) ipratropium bromide 0.02 % 0.5 mg inhalation Q6H PRN 08/07/22 02/19/23 solution for inhalation shortness of breath or wheezing loratadine 10 mg tablet (Allergy 10 mg PO HS 08/07/22 02/19/23 Relief (loratadine)) umeclidinium 62.5 mcg-vilanterol 1 inh inhalation DAILY 01/21/23 02/18/23 25 mcg/actuation powdr for inhalation albuterol sulfate 2.5 mg/3 mL 2.5 mg inhalation Q12H 02/19/23 02/19/23 (0.083 %) solution for nebulization albuterol sulfate 90 mcg/actuation 2 puff inhalation Q4H PRN 02/19/23 02/19/23 aerosol inhaler apixaban 2.5 mg tablet (Eliquis) 2.5 mg PO BID 02/19/23 02/19/23 baclofen 10 mg tablet 10 mg PO QID 02/19/23 budesonide 0.5 mg/2 mL suspension 0.5 mg inhalation Q12H 02/19/23 02/19/23 for nebulization calcium carbonate 600 mg-vitamin 1 cap PO DAILY 02/19/23 D3 10 mcg (400 unit) capsule cranberry extract 425 mg capsule 425 mg PO BID 02/19/23 02/19/23 diphenhydramine HCl 25 mg tablet 12.5 mg PO Q6H PRN 02/19/23 (Allergy (diphenhydramine)) docusate sodium 100 mg capsule 100 mg PO BID PRN 02/19/23 02/19/23 (Dulcolax Stool Softener (docusate)) ergocalciferol (vitamin D2) 1,250 1,250 mcg PO WEEKLY 02/19/23 02/19/23 mcg (50,000 unit) capsule fluticasone furoate 27.5 1 spray intranasal DAILY 02/19/23 02/19/23 mcg/actuation nasal spray,suspension (Flonase Sensimist) gabapentin 100 mg capsule 200 mg PO QHS 02/19/23 02/19/23 magnesium oxide 400 mg PO DAILY 02/19/23 mecobalamin (vitamin B12) 1,000 1,000 mcg PO DAILY 02/19/23 mcg chewable tablet melatonin 5 mg capsule 5 mg PO QHS 02/19/23 montelukast 10 mg tablet 10 mg PO DAILY 02/19/23 (Singulair) omeprazole 20 mg capsule,delayed 20 mg PO DAILY 02/19/23 release simethicone 80 mg chewable tablet 80 mg PO QID PRN 02/19/23 (Gas Relief (simethicone)) umeclidinium 62.5 mcg-vilanterol 1 inh inhalation DAILY 02/19/23 02/19/23 25 mcg/actuation powdr for inhalation (Anoro Ellipta) Allergies Allergy/AdvReac Type Severity Reaction Status Date / Time azithromycin Allergy Unknown Verified 02/19/23 09:43 [From Zithromax Z-Benny] codeine Allergy Unknown Verified 02/19/23 09:43 morphine Allergy Unknown Verified 02/19/23 09:43 [facility] Past Medical History Medical History Atrial fibrillation B12 deficiency C. difficile colitis C. 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
[2023-03-10] MEDS: SODIUM CHLORIDE 0.9% IV 2,000 ML 999 ML IV CONT (02:34)
[2023-03-10] MEDS: MECLIZINE HCL 25 MG TABLET PO (02:39)
[2023-03-10 02:41] LABS: Basophils Percent Auto 0.5 % (0.2-1.2); Eosinophils Absolute Auto 0.4 K/mm3 (0-0.3); Eosinophils Percent Auto 5.6 % (0-4.4); Hematocrit 27.1 % (42.0-52.0); Hemoglobin 8.5 g/dL (14.0-18.0); Immature Granulocyte Absolute 0.02 K/mm3 (0.00-0.031); Immature Granulocyte Percent A 0.3 % (0-0.5); Lymphocytes Absolute Auto 1.55 K/mm3 (0.9-3.2); Lymphocytes Percent Auto 23.5 % (18.3-44.2); Mean Corpuscular HGB Conc 31.4 g/dl (32-36); Mean Corpuscular Hemoglobin 26.2 pg (26-34); Mean Corpuscular Volume 83.4 fl (80-100); Mean Platelet Volume 8.9 fl (7.4-10.4); Monocytes Absolute Auto 0.6 K/mm3 (0.1-0.6); Monocytes Percent Auto 9.3 % (2.6-8.5); Neutrophils Percent Auto 60.8 % (45.5-73.1); Platelet Count Result 207 k/mm3 (150-375); Red Blood Count 3.25 M/mm3 (4.6-6.20); Red Cell Distribution Width 16.1 % (11.5-14.5); White Blood Count 6.6 K/mm3 (4.5-10.0)
[2023-03-10 02:48] LABS: Glucose Point of Care 122 mg/dl (65-105)
[2023-03-10 02:51] LABS: Alanine Aminotransferase 21 U/L (6-50); Albumin Level 3.9 g/dL (3.5-5.1); Alkaline Phosphatase 197 U/L (38-126); Anion Gap 5 mmol/L (8-16); Aspartate Amino Transferase 24 U/L (17-59); Bilirubin,Total 0.5 mg/dL (0.2-1.3); Blood Urea Nitrogen 37 mg/dL (9-20); Calcium 8.3 mg/dL (8.4-10.2); Carbon Dioxide 30 mmol/L (22-30); Chloride 96 mmol/L (98-107); Estimated CRCL calculation 46 ml/min; Estimated Glomerular Filt Rate 35; Glucose 120 mg/dL (65-110); Potassium 4.3 mmol/L (3.4-5.0); Sodium 131 mmol/L (137-145)
[2023-03-10 02:54] LABS: Appearance Urine Cloudy (Clear); Bacteria Urine 2+ /hpf; Bilirubin Urine Negative (Negative); Blood Urine 2+ (Negative); Color Urine Yellow (Yellow); Glucose Urine UA Negative (Negative); Ketones Urine Negative (Negative); Leukocyte Esterase Ur 3+ LEU/UL (Negative); Nitrate Urine Positive (Negative); Non Pathogenic Casts 0-2; Protein Urine Negative (Negative); Squamous Epithelial Cell Urine Occasional /hpf (Few); Urobilinogen Urine 0.2 mg/dL (<2.0); WBC Urine 51-100 /hpf
[2023-03-10 03:13] LABS: Add Urine Microscopic? YES
--- NOTE | 2023-03-10 05:46 | PC.NURSE ---
Enio Goldstein (POA as well) would like an update when the X-ray and CT are back. [phone]
--- NOTE | 2023-03-10 06:13 | ECG_ITS ---
Measurements Intervals [place] Rate: 63 P: 26 VT: 176 QRS: -3 QRSD: 120 T: 12 QT: 387 QTc: 398 Interpretive Statements SINUS RHYTHM INFERIOR MYOCARDIAL INFARCTION , PROBABLY OLD [40+ ms Q WAVE AND/OR ST/T ABNORMALITY IN II/aVF] COMPARED TO ECG 08/08/2022 05:05:00 NO SIGNIFICANT CHANGES Electronically Signed On 03-10-2023 11:21:46 CDT by Sb Orellana M.D.
--- NOTE | 2023-03-10 06:20 | PC.NURSE ---
Per EDP Dr. Guerrero the patient will need his old Pereira catheter out and insert a new Pereira catheter in.
--- NOTE | 2023-03-10 07:34 | PC.NURSE ---
Called dietary per pt request while pt is waiting for transport.
== END 2023-03-10 07:01 ==
PROVIDERS: Emergency Provider Emergency Medicine; PCP Hospitalist
DX: N39.0 Urinary tract infection, site not specified (principal); E86.0 Dehydration; R42 Dizziness and giddiness; I48.91 Unspecified atrial fibrillation; I13.0 Hypertensive heart and chronic kidney disease with heart failure and stage 1 through stage 4 chronic kidney disease, or unspecified chronic kidney disease; N18.9 Chronic kidney disease, unspecified; I50.9 Heart failure, unspecified; I73.9 Peripheral vascular disease, unspecified; J43.9 Emphysema, unspecified; E03.9 Hypothyroidism, unspecified; E55.9 Vitamin D deficiency, unspecified; D64.9 Anemia, unspecified; G62.9 Polyneuropathy, unspecified; K21.9 Gastro-esophageal reflux disease without esophagitis; G82.22 Paraplegia, incomplete; S24.154S Other incomplete lesion at T11-T12 level of thoracic spinal cord, sequela; Z87.01 Personal history of pneumonia (recurrent); Z86.16 Personal history of COVID-19; Z87.891 Personal history of nicotine dependence; Z89.412 Acquired absence of left great toe; Z90.49 Acquired absence of other specified parts of digestive tract; Z79.01 Long term (current) use of anticoagulants; R94.31 Abnormal electrocardiogram [ECG] [EKG]; V29.99XS Rider (driver) (passenger) of other motorcycle injured in unspecified traffic accident, sequela
CPT/HCPCS: 36415; 51702; 70450; 71045; 80053; 81001; 82948; 85025; 87086; 87088; 93005; 96361; 96365; 99284; A9270; J0696; J7030

== ENCOUNTER 2023-08-18 15:24 | Outpatient (NON) | payer MEDICARE, BC, MEDICAID, SELFPAY ==
[2023-08-18 15:54] LABS: Influenza A QL RT-PCR Positive (Negative); Influenza B QL RT-PCR Negative (Negative); RSV RNA, RT-PCR Positive (Negative); SARS-CoV-2 RNA PCR Negative (Negative)
== END 2023-08-18 15:25 | disposition home or self-care (01) ==
LOC: ANHLAB 15:28
PROVIDERS: PCP Hospitalist; Visit Provider Hospitalist
DX: R05.9 Cough, unspecified (principal)
CPT/HCPCS: 87637

== ENCOUNTER 2024-01-29 13:43 | Inpatient (IN) | payer MEDICARE, BC, MEDICAID, SELFPAY ==
[2024-01-29] VITALS (10 sets, daily range): BP systolic 119–145; BP diastolic 46–83; PULSE 69–82; RESP 13–24; TEMP 36.1–37; O2SAT 92–100; BMI 40.6
--- NOTE | ~2024-01-29 | XR_ITS ---
EXAMINATION: XR chest 2V DATE: 01/29/2024 14:13 INDICATION: Weakness. Lightheadedness. TECHNIQUE: Frontal and lateral views of the chest were obtained. COMPARISON: Chest single view 03/10/2023 FINDINGS: There is mild atelectasis in the lower lung zones. Calcified pulmonary nodules are consiste nt with old granulomatous disease. No pleural effusion or pneumothorax. The heart size is normal. IMPRESSION: 1. Mild atelectasis in the lower lung zones. Reviewed, dictated and finalized at location E.
--- NOTE | 2024-01-29 13:56 | ECG_ITS ---
Test Date: 2024-01-29 13:52:18 Measurements Intervals [place] Rate: 72 P: 76 [place]: 172 QRS: -4 QRSD: 108 T: 27 QT: 362 QTc: 399 Interpretive Statements SINUS RHYTHM BORDERLINE R WAVE PROGRESSION, ANTERIOR LEADS BASELINE ARTIFACT- I, II, III, AVR, AVL, AVF, V1 BORDERLINE ECG No previous ECG available for comparison Electronically Signed On 01-29-2024 14:03:50 CDT by Wang Bhagat D.O.
[2024-01-29 14:09] LABS: Basophils Absolute Auto 0.1 K/mm3 (0.0-0.1); Basophils Percent Auto 0.3 % (0.2-1.2); Eosinophils Absolute Auto 0.4 K/mm3 (0-0.3); Eosinophils Percent Auto 2.2 % (0-4.4); Hematocrit 27.6 % (42.0-52.0); Hemoglobin 9.1 g/dL (14.0-18.0); Immature Granulocyte Percent A 0.5 % (0-0.5); Lymphocytes Absolute Auto 1.81 K/mm3 (0.9-3.2); Lymphocytes Percent Auto 9.8 % (18.3-44.2); Mean Corpuscular Hemoglobin 28.3 pg (26-34); Mean Corpuscular Volume 85.7 fl (80-100); Mean Platelet Volume 9.2 fl (7.4-10.4); Monocytes Absolute Auto 1.5 K/mm3 (0.1-0.6); Monocytes Percent Auto 8.3 % (2.6-8.5); Neutrophils Absolute Auto 14.6 K/mm3 (1.3-6.7); Neutrophils Percent Auto 78.9 % (45.5-73.1); Platelet Count Result 215 k/mm3 (150-375); Red Blood Count 3.22 M/mm3 (4.6-6.20); Red Cell Distribution Width 16.5 % (11.5-14.5); White Blood Count 18.5 K/mm3 (4.5-10.0)
--- NOTE | 2024-01-29 14:15 | ED.WEAKNESS ---
HPI - Weakness General Chief complaint: Weakness Stated complaint: low BP, runs of Vtach Time Seen by Provider: 01/29/24 14:09 Source: patient and EMS Mode of arrival: EMS Limitations: no limitations History of Present Illness HPI Narrative: 73 YEARS OLD WHITE MALE CAME TO THE ED COMPLAINING OF THAT HIS HEMOGLOBIN IS LOW AND BLOOD PRESSURE IS LOW AT THE [facility]. PATIENT WAS IN HIS WAY TO [facility] BY AMBULANCE, EMT NOTICE THAT THE PAIN HAVE FREQUENT PVCS/SHORT RUNS OF V-TACH. PATIENT CAME TO US INSTEAD OF GOING TO [facility]. ON ARRIVAL TO THE ED PATIENT IS ASYMPTOMATIC JUST FEELING UNCOMFORTABLE ON HIS BUTT FROM LAYING DOWN. HE DENIES ANY FEVER, CHILLS, NAUSEA, VOMITING, CHEST PAIN, SHORTNESS OF BREATH, PATIENT ON CHRONIC NASAL CANNULA 2-4 L Related Data Home Medications Medication Instructions Recorded Confirmed atorvastatin 10 mg tablet 10 mg PO DAILY 04/26/20 12/23/23 ascorbic acid (vitamin C) 500 mg 500 mg PO DAILY 12/26/21 12/23/23 capsule,extended release ferrous sulfate 325 mg (65 mg 325 mg PO DAILY 12/26/21 12/23/23 iron) tablet furosemide 40 mg tablet 40 mg PO DAILY 12/26/21 12/23/23 guaifenesin 600 mg tablet, 600 mg PO Q12H PRN Cough 12/26/21 12/23/23 extended release 12 hr (Mucinex) calcium carbonate (Antacid Ext Str 300 mg PO TID 08/07/22 12/23/23 (calcium carb)) ipratropium bromide 0.02 % 0.5 mg inhalation Q6H PRN 08/07/22 12/23/23 solution for inhalation shortness of breath or wheezing loratadine 10 mg tablet (Allergy 10 mg PO HS 08/07/22 12/23/23 Relief (loratadine)) albuterol sulfate 2.5 mg/3 mL 2.5 mg inhalation Q12H 02/19/23 12/23/23 (0.083 %) solution for nebulization albuterol sulfate 90 mcg/actuation 2 puff inhalation Q4H PRN sob 02/19/23 12/23/23 aerosol inhaler apixaban 2.5 mg tablet (Eliquis) 2.5 mg PO BID 02/19/23 12/23/23 baclofen 10 mg tablet 10 mg PO QID 02/19/23 12/23/23 budesonide 0.5 mg/2 mL suspension 0.5 mg inhalation Q12H 02/19/23 12/23/23 for nebulization calcium carbonate 600 mg-vitamin 1 cap PO DAILY 02/19/23 12/23/23 D3 10 mcg (400 unit) capsule cranberry extract 425 mg capsule 425 mg PO BID 02/19/23 12/23/23 diphenhydramine HCl 25 mg tablet 12.5 mg PO Q6H PRN Rash 02/19/23 12/23/23 (Allergy (diphenhydramine)) docusate sodium 100 mg capsule 100 mg PO BID PRN Diarrhea 02/19/23 12/23/23 (Dulcolax Stool Softener (docusate)) ergocalciferol (vitamin D2) 1,250 1,250 mcg PO WEEKLY 02/19/23 12/23/23 mcg (50,000 unit) capsule fluticasone furoate 27.5 1 spray intranasal DAILY 02/19/23 12/23/23 mcg/actuation nasal spray,suspension (Flonase Sensimist) gabapentin 100 mg capsule 200 mg PO QHS 02/19/23 12/23/23 magnesium oxide 400 mg PO DAILY 02/19/23 12/23/23 mecobalamin (vitamin B12) 1,000 1,000 mcg PO DAILY 02/19/23 12/23/23 mcg chewable tablet melatonin 5 mg capsule 5 mg PO QHS 02/19/23 12/23/23 montelukast 10 mg tablet 10 mg PO DAILY 02/19/23 12/23/23 (Singulair) omeprazole 20 mg capsule,delayed 20 mg PO DAILY 02/19/23 12/23/23 release simethicone 80 mg chewable tablet 80 mg PO QID PRN Abdominal 02/19/23 12/23/23 (Gas Relief (simethicone)) Discomfort umeclidinium 62.5 mcg-vilanterol 1 inh inhalation DAILY 02/19/23 12/23/23 25 mcg/actuation powdr for inhalation (Anoro Ellipta) epoetin willie-epbx 10,000 unit/mL 10,000 unit subcut 3XW 09/30/23 12/23/23 injection solution (Retacrit) cetirizine 10 mg capsule (Zyrtec) 10 mg PO DAILY PRN 12/23/23 01/21/24 diclofenac sodium 1 % topical gel 2 g topical BID 12/23/23 01/21/24 (Voltaren Arthritis Pain) fluticasone furoate 27.5 2 spray intranasal DAILY 12/23/23 01/21/24 mcg/actuation nasal spray,suspension (Flonase Sensimist) levothyroxine 13 mcg capsule 13 mcg PO DAILY 12/23/23 01/21/24 multivitamin 1 tablet PO DAILY 12/23/23 01/21/24 tizanidine 4 mg capsule 4 mg PO DAILY PRN 12/23/23 01/21/24 Allergies Allergy/AdvReac Type Severity Reaction Status Date / Time azithromycin All
--- NOTE | 2024-01-29 14:29 | PC.NURSE ---
Pt daughter Natalie requests to be called with any updates
[2024-01-29 14:32] LABS: Alanine Aminotransferase 16 U/L (6-50); Albumin Level 4.1 g/dL (3.5-5.1); Alkaline Phosphatase 136 U/L (38-126); Anion Gap 12 mmol/L (4-12); Aspartate Amino Transferase 25 U/L (17-59); Bilirubin,Total 1.4 mg/dL (0.2-1.3); Blood Urea Nitrogen 47 mg/dL (9-20); Calcium 8.2 mg/dL (8.4-10.2); Carbon Dioxide 23 mmol/L (22-30); Chloride 98 mmol/L (98-107); Estimated Glomerular Filt Rate 28; Glucose 100 mg/dL (65-110); Potassium 4.2 mmol/L (3.4-5.0); Sodium 133 mmol/L (137-145)
[2024-01-29] MEDS: SODIUM CHLORIDE 0.9% IV 1,000 ML 999 ML IV CONT (14:32)
[2024-01-29 14:48] LABS: Lactic Acid Reflex 0.8 mmol/L (0.7-2.0)
[2024-01-29 14:48] LABS: INR 1.6; Prothrombin Time 19.3 Seconds (11.1-14.7)
[2024-01-29 14:49] LABS: Partial Thromboplastin Time 41.3 Seconds (22.3-36.8)
[2024-01-29 14:59] LABS: Add Urine Microscopic? YES; Appearance Urine Cloudy (Clear); Bacteria Urine 4+ /hpf; Bilirubin Urine Negative (Negative); Blood Urine 2+ (Negative); Color Urine Yellow (Yellow); Glucose Urine UA Negative (Negative); Hyaline Casts Urine Present /lpf; Ketones Urine Negative (Negative); Leukocyte Esterase Ur 3+ LEU/UL (Negative); Nitrate Urine Negative (Negative); Non Pathogenic Casts >20; Protein Urine 1+ mg/dL (Negative); Specific Grav Ur 1.012 (1.001-1.035); Squamous Epithelial Cell Urine None Seen /hpf (Few); Urobilinogen Urine 0.2 mg/dL (<2.0); WBC Urine >100 /hpf (0-3)
[2024-01-29 15:03] LABS: CRP 7.5 mg/dL (<1.0)
[2024-01-29 15:19] LABS: Troponin I 0.065 ng/mL (0.000-0.034)
--- NOTE | 2024-01-29 16:29 | PC.NURSE ---
[facility] at capacity not accepting waitlist
--- NOTE | 2024-01-29 17:48 | ECG_ITS ---
Test Date: 2024-01-29 17:54:30 Measurements Intervals [place] Rate: 76 P: 83 SD: 168 QRS: -1 QRSD: 118 T: 30 QT: 378 QTc: 427 Interpretive Statements SINUS RHYTHM INTRAVENTRICULAR CONDUCTION DELAY DELAYED PRECORDIAL R/S TRANSITION BASELINE ARTIFACT- I, II, III, AVR, AVL, AVF BORDERLINE ECG Compared to ECG 01/29/2024 13:52:18 NO SIGNIFICANT CHANGE Electronically Signed On 01-29-2024 19:29:12 CDT by Wang Bhagat D.O.
--- NOTE | 2024-01-29 17:57 | PC.NURSE ---
This RN spoke with Keyla ANDRES at [facility] regarding pt and informed her that pt would be admitted to this hospital
[2024-01-29] MEDS: SODIUM CHLORIDE 0.9% IV 1,000 ML 500 ML IV CONT (18:05)
--- NOTE | 2024-01-29 18:10 | PC.NURSE ---
This RN spoke with pt daughter and gave update regarding pt status and informed her that pt is being admitted
--- NOTE | 2024-01-29 18:39 | ADMGEN ---
This patient, Bob Simmons, was admitted to IMU Room 207-01 at 1840. Patient/family oriented to hospital policies and general routines including ID bracelet, bed and alarms, visiting hours, pain management, procedures, bathroom and other care routines, personal items, smoking policy, room service/diet, and visiting hours. Information on how to activate the Rapid Response Team has been discussed. Patient/Family are encouraged to report perceived risks to care and to ask questions if they do not understand what they are told or what they should do.
[2024-01-29 18:46] LABS: Troponin I 0.047 ng/mL (0.000-0.034)
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
[2024-01-29] MEDS: SODIUM CHLORIDE 0.9% IV 1,000 ML 125 ML IV CONT (20:45)
[2024-01-29 21:05] LABS: Troponin I 0.044 ng/mL (0.000-0.034)
[2024-01-30] VITALS (10 sets, daily range): BP systolic 109–133; BP diastolic 46–58; PULSE 70–88; RESP 16–20; TEMP 36.1–36.9; O2SAT 95–98
[2024-01-30] MEDS: MEROPENEM 1 GM/NS 100 ML 1 GM/100 ML BAG IVPB ×2 (01:01→13:30)
[2024-01-30] MEDS: APIXABAN 5 MG TABLET PO ×3 (01:02→21:13)
[2024-01-30] MEDS: GABAPENTIN 100 MG CAPSULE 200 MG PO ×2 (01:02→21:13)
[2024-01-30] MEDS: EPOETIN ALFA 20,000 UNITS/ML VIAL 20000 UNITS SUB-Q (01:02)
[2024-01-30] MEDS: MELATONIN 5 MG TABLET PO (01:02)
[2024-01-30] MEDS: ATORVASTATIN 10 MG TABLET PO ×2 (01:03→21:13)
[2024-01-30] MEDS: MONTELUKAST SODIUM 10 MG TABLET PO ×2 (01:03→21:14)
[2024-01-30 03:52] LABS: IFOB Positive Control Positive; Immunochemical Fecal Occult Bl Negative (N)
[2024-01-30] MEDS: SODIUM CHLORIDE 0.9% IV 1,000 ML 125 ML IV CONT (05:29)
[2024-01-30] MEDS: dilTIAZem HCL 30 MG TABLET PO ×3 (05:29→21:14)
[2024-01-30] MEDS: LEVOTHYROXINE SODIUM 12.5 MCG TABLET PO (05:29)
[2024-01-30 05:40] LABS: Basophils Percent Auto 0.2 % (0.2-1.2); Eosinophils Absolute Auto 0.5 K/mm3 (0-0.3); Eosinophils Percent Auto 4.2 % (0-4.4); Hematocrit 24.2 % (42.0-52.0); Hemoglobin 7.8 g/dL (14.0-18.0); Immature Granulocyte Absolute 0.05 K/mm3 (0.00-0.031); Immature Granulocyte Percent A 0.5 % (0-0.5); Lymphocytes Absolute Auto 1.22 K/mm3 (0.9-3.2); Lymphocytes Percent Auto 11.2 % (18.3-44.2); Mean Corpuscular HGB Conc 32.2 g/dl (32-36); Mean Corpuscular Hemoglobin 28.1 pg (26-34); Mean Corpuscular Volume 87.1 fl (80-100); Monocytes Absolute Auto 0.8 K/mm3 (0.1-0.6); Monocytes Percent Auto 7.3 % (2.6-8.5); Neutrophils Absolute Auto 8.4 K/mm3 (1.3-6.7); Neutrophils Percent Auto 76.6 % (45.5-73.1); Platelet Count Result 170 k/mm3 (150-375); Red Blood Count 2.78 M/mm3 (4.6-6.20); Red Cell Distribution Width 16.2 % (11.5-14.5); White Blood Count 10.9 K/mm3 (4.5-10.0)
[2024-01-30 05:59] LABS: Alanine Aminotransferase 13 U/L (6-50); Albumin Level 3.4 g/dL (3.5-5.1); Alkaline Phosphatase 127 U/L (38-126); Anion Gap 12 mmol/L (4-12); Aspartate Amino Transferase 20 U/L (17-59); Bilirubin,Total 1.1 mg/dL (0.2-1.3); Blood Urea Nitrogen 39 mg/dL (9-20); Calcium 7.8 mg/dL (8.4-10.2); Carbon Dioxide 19 mmol/L (22-30); Chloride 104 mmol/L (98-107); Estimated CRCL calculation 47 ml/min; Estimated Glomerular Filt Rate 35; Glucose 85 mg/dL (65-110); Sodium 135 mmol/L (137-145)
[2024-01-30 06:40] LABS: Toxigenic C. Diff POSITIVE (NEGATIVE)
[2024-01-30] MEDS: VANCOMYCIN HCL 125 MG ORAL CAPSULE PO ×3 (06:58→17:22)
[2024-01-30] MEDS: UMECLIDINIUM/VILANTEROL 62.5-25 MCG ELLIPTA 1 PUFF INHALATION (07:51)
[2024-01-30] MEDS: FERROUS SULFATE 325 MG TABLET DR BY MOUTH ×2 (10:33→21:13)
[2024-01-30] MEDS: FUROSEMIDE 40 MG TABLET PO (10:34)
[2024-01-30] MEDS: ASCORBIC ACID 500 MG TABLET PO (10:34)
[2024-01-30] MEDS: PANTOPRAZOLE 40 MG TABLET PO (10:34)
[2024-01-30] MEDS: MULTIVITAMINS THERAPEUTIC TAB (*BKC) 1 TABLET PO (10:34)
[2024-01-30] MEDS: CYANOCOBALAMIN 1,000 MCG TABLET 1000 MCG PO (10:34)
[2024-01-30] MEDS: TIZANIDINE HCL 4 MG TABLET PO (10:35)
[2024-01-30] MEDS: FLUTICASONE PROPIONATE 0.05% NA SPR 16 GM BTL (*BKC) 2 SPRAY NASAL (10:36)
[2024-01-30] MEDS: BACLOFEN 10 MG TABLET PO ×4 (10:36→21:13)
[2024-01-30] MEDS: CALCIUM CARBONATE (OSCAL) 500 MG TABLET PO (10:36)
--- NOTE | 2024-01-30 11:46 | PM.IMPN ---
Progress Note: A&P Assessment and Plan (1) Urinary tract infection: Code(s): N39.0 - Urinary tract infection, site not specified Status: Acute Assessment and Plan: - UA:Cloudy, 1+ protein, 2+ blood, 3+ leuk esterase, 6-10 RBC, greater than 100 WBC, 4+ bacteria, no epithelial cells. - UC pending , obtained on 01/28 - previous micro reviewed, hx of ESBL - started on ceftriaxone, post micro review transitioned to meropenem on 01/28 - replaced chronic indwelling Pereira 01/29 - await c/s 01/29 (2) C. difficile colitis: Code(s): A04.72 - Enterocolitis due to Clostridium difficile, not specified as recurrent Status: Acute Assessment and Plan: - PO Vancomycin 125 mg q 6 hr begun 01/29 (continue for 10-14 days) (3) Anemia in CKD (chronic kidney disease): Qualifiers: Chronic kidney disease stage: unspecified stage Qualified Code(s): N18.9 - Chronic kidney disease, unspecified; D63.1 - Anemia in chronic kidney disease Code(s): N18.9 - Chronic kidney disease, unspecified; D63.1 - Anemia in chronic kidney disease Status: Chronic Assessment and Plan: - hgb 9.1, MCV 85.7, MCHC 33.0 - previously 12.3 on 10/28/2023 - resumed Epogen 10,000 SQ 3 times weekly (MWF), will give 20,000 units01/28 -02/01 hgb 7.8 (4) OLIVER (acute kidney injury): Code(s): N17.9 - Acute kidney failure, unspecified Status: Acute Assessment and Plan: - OLIVER superimposed on CKD - creatinine2.3 and GFR 28 -01/29 creatinine 1.9 at baseline after hydration (5) Elevated troponin: Code(s): R79.89 - Other specified abnormal findings of blood chemistry Status: Acute Assessment and Plan: -likely demand related due to anemia infection and hypotension No acute coronary syndrome Subjective Date/time seen: 01/30/24 11:46 Interval history: Only 1 episode of loose stool this morning. No cramps or pain. Colostomy in place. Dark color without definite blood. No chest pain. No shortness of breath. On baseline oxygen at 4 L at rest. Has cough with thick creamy sputum. More than usual. Has chronic anemia. Received his epoitin injection 01/28. Review of Systems Review of Systems: All systems reviewed & are unremarkable except as noted in HPI and below Exam Narrative: HEENT: PERRL, sclerae nonicteric, pharyngeal mucosa pink and intact NECK: No JVD, adenopathy, or thyromegaly CHEST: Mildly tachypneic. Prolonged expiratory phase with anterior wheezes. HEART: NL S1/S2, regular, no murmur ABDOMEN: BS+, soft, nontender, no mass, no bruits EXTREMITIES: Venous stasis changes with trace pitting ankle edema. NEUROLOGIC: CN intact and symmetric to inspection. MUSCULOSKELETAL: Tone and strength symmetric. PSYCH: Alert. Oriented to person, place, and time. Objective Data Vital Signs Vital Signs: Vital Signs - 24 hr 01/29/24 13:41 01/29/24 14:36 01/29/24 17:48 Temperature 98.6 F Pulse Rate 82 70 69 Respiratory Rate 17 13 Blood Pressure 120/54 L 145/55 H Pulse Oximetry 98 100 Oxygen Delivery Nasal Cannula Oxygen Flow Rate 01/29/24 18:28 01/29/24 18:37 01/29/24 18:57 Temperature 97.5 F L 98 F Pulse Rate 74 74 Respiratory Rate 22 H 24 H Blood Pressure 132/46 L Pulse Oximetry 100 100 100 Oxygen Delivery Nasal Cannula Oxygen Flow Rate 01/29/24 19:33 01/29/24 20:00 01/29/24 20:00 Temperature 97 F L Pulse Rate 79 71 Respiratory Rate 20 Blood Pressure 119/83 Pulse Oximetry 92 92 Oxygen Delivery Oxygen Flow Rate 01/29/24 22:00 01/29/24 23:59 01/30/24 00:00 Temperature 97.3 F L Pulse Rate 77 76 Respiratory Rate 20 Blood Pressure 126/74 Pulse Oximetry 95 95 Oxygen Delivery Oxygen Flow Rate 01/30/24 00:00 01/30/24 02:00 01/30/24 04:00 Temperature Pulse Rate 77 88 Respiratory Rate Blood Pressure Pulse Oximetry 98 Oxygen Delivery Oxygen Flow Rate 01/30/24
[2024-01-30] MEDS: guaiFENesin 12 HR 600 MG TABCR 1200 MG PO (12:02)
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
[2024-01-31] VITALS (7 sets, daily range): BP systolic 104–145; BP diastolic 39–52; PULSE 71–75; RESP 16–19; TEMP 36.1–36.5; O2SAT 94–96
[2024-01-31] MEDS: MEROPENEM 1 GM/NS 100 ML 1 GM/100 ML BAG IVPB ×2 (01:06→12:41)
[2024-01-31] MEDS: VANCOMYCIN HCL 125 MG ORAL CAPSULE PO ×4 (01:06→17:51)
[2024-01-31 06:00] LABS: Hematocrit 22.5 % (42.0-52.0); Hemoglobin 7.4 g/dL (14.0-18.0); Mean Corpuscular HGB Conc 32.9 g/dl (32-36); Mean Corpuscular Hemoglobin 28.1 pg (26-34); Mean Corpuscular Volume 85.6 fl (80-100); Mean Platelet Volume 9.6 fl (7.4-10.4); Platelet Count Result 172 k/mm3 (150-375); Red Blood Count 2.63 M/mm3 (4.6-6.20); Red Cell Distribution Width 16.3 % (11.5-14.5); White Blood Count 9.5 K/mm3 (4.5-10.0)
[2024-01-31 06:09] LABS: Albumin Level 3.4 g/dL (3.5-5.1); Anion Gap 11 mmol/L (4-12); Blood Urea Nitrogen 38 mg/dL (9-20); Calcium 7.9 mg/dL (8.4-10.2); Carbon Dioxide 20 mmol/L (22-30); Chloride 104 mmol/L (98-107); Estimated CRCL calculation 49 ml/min; Estimated Glomerular Filt Rate 37; Glucose 79 mg/dL (65-110); Phosphorus 3.8 mg/dL (2.5-4.5); Potassium 3.9 mmol/L (3.4-5.0); Sodium 135 mmol/L (137-145)
[2024-01-31] MEDS: dilTIAZem HCL 30 MG TABLET PO ×3 (06:44→21:20)
[2024-01-31] MEDS: LEVOTHYROXINE SODIUM 12.5 MCG TABLET PO (06:45)
[2024-01-31] MEDS: UMECLIDINIUM/VILANTEROL 62.5-25 MCG ELLIPTA 1 PUFF INHALATION (07:29)
[2024-01-31] MEDS: ASCORBIC ACID 500 MG TABLET PO (08:51)
[2024-01-31] MEDS: MULTIVITAMINS THERAPEUTIC TAB (*BKC) 1 TABLET PO (08:51)
[2024-01-31] MEDS: PANTOPRAZOLE 40 MG TABLET PO (08:51)
[2024-01-31] MEDS: CYANOCOBALAMIN 1,000 MCG TABLET 1000 MCG PO (08:51)
[2024-01-31] MEDS: CALCIUM CARBONATE (OSCAL) 500 MG TABLET PO (08:51)
[2024-01-31] MEDS: BACLOFEN 10 MG TABLET PO ×4 (08:52→21:24)
[2024-01-31] MEDS: APIXABAN 5 MG TABLET PO ×2 (08:52→21:20)
[2024-01-31] MEDS: FERROUS SULFATE 325 MG TABLET DR BY MOUTH ×2 (08:52→21:20)
[2024-01-31] MEDS: TIZANIDINE HCL 4 MG TABLET PO (08:52)
[2024-01-31] MEDS: FUROSEMIDE 40 MG TABLET PO (08:52)
[2024-01-31] MEDS: FLUTICASONE PROPIONATE 0.05% NA SPR 16 GM BTL (*BKC) 2 SPRAY NASAL (08:53)
--- NOTE | 2024-01-31 13:35 | PM.IMPN ---
Progress Note: A&P Assessment and Plan (1) C. difficile colitis: Code(s): A04.72 - Enterocolitis due to Clostridium difficile, not specified as recurrent Status: Acute Assessment and Plan: - PO Vancomycin 125 mg q 6 hr begun 01/29 (continue for 10-14 days) - 01/31 STOPPED Meropenem (2) Urinary tract infection: Code(s): N39.0 - Urinary tract infection, site not specified Status: Acute Assessment and Plan: - UA:Cloudy, 1+ protein, 2+ blood, 3+ leuk esterase, 6-10 RBC, greater than 100 WBC, 4+ bacteria, no epithelial cells. - UC pending , obtained on 01/28 - previous micro reviewed, hx of ESBL - started on ceftriaxone, post micro review transitioned to meropenem on 01/28 - replaced chronic indwelling Pereira 01/29 - await c/s 01/29 - 01/30 urine with only MIXED GENITAL DREA, NO evidence for UTI, therefore meropenem DISCONTINUED (3) Anemia in CKD (chronic kidney disease): Qualifiers: Chronic kidney disease stage: unspecified stage Qualified Code(s): N18.9 - Chronic kidney disease, unspecified; D63.1 - Anemia in chronic kidney disease Code(s): N18.9 - Chronic kidney disease, unspecified; D63.1 - Anemia in chronic kidney disease Status: Chronic Assessment and Plan: - hgb 9.1, MCV 85.7, MCHC 33.0 - previously 12.3 on 10/28/2023 - resumed Epogen 10,000 SQ 3 times weekly (MWF), will give 20,000 units01/28 -02/01 hgb 7.8 01/30 Hgb 7.4, f/u H/h PM, IV iron sucrose x1 (4) OLIVER (acute kidney injury): Code(s): N17.9 - Acute kidney failure, unspecified Status: Acute Assessment and Plan: - OLIVER superimposed on CKD - creatinine2.3 and GFR 28 -01/29 creatinine 1.9 at baseline after hydration 01/30 1.8 (5) Elevated troponin: Code(s): R79.89 - Other specified abnormal findings of blood chemistry Status: Acute Assessment and Plan: -likely demand related due to anemia infection and hypotension No acute coronary syndrome Subjective Date/time seen: 01/31/24 13:35 Interval history: Complains of extreme exhaustion today. Colostomy bag has not been in to eat yet today. Stool volume has diminished significantly. Denied chest pain shortness of breath or fevers or abdominal pain. No focal weakness or numbness. No noted bleeding. Review of Systems Review of Systems: All systems reviewed & are unremarkable except as noted in HPI and below Exam Narrative: HEENT: PERRL, sclerae nonicteric, pharyngeal mucosa pink and intact NECK: No JVD, adenopathy, or thyromegaly CHEST: Mildly tachypneic. Prolonged expiratory phase with anterior wheezes. HEART: NL S1/S2, regular, no murmur ABDOMEN: BS+, soft, nontender, no mass, no bruits EXTREMITIES: Venous stasis changes with trace pitting ankle edema. NEUROLOGIC: CN intact and symmetric to inspection. MUSCULOSKELETAL: Tone and strength symmetric. PSYCH: Alert. Oriented to person, place, and time. Objective Data Vital Signs Vital Signs: Vital Signs - 24 hr 01/30/24 17:12 01/30/24 20:43 01/30/24 20:00 Temperature 97.0 F L 98.4 F Pulse Rate 75 79 Respiratory Rate 18 20 Blood Pressure 119/54 L 133/58 L Pulse Oximetry 96 97 Oxygen Delivery Room Air Oxygen Flow Rate 01/31/24 07:30 01/31/24 09:11 01/31/24 08:50 Temperature 97.0 F L Pulse Rate 75 Respiratory Rate 19 Blood Pressure 124/50 L Pulse Oximetry 96 94 94 Oxygen Delivery Nasal Cannula Nasal Cannula Oxygen Flow Rate 3 3 01/31/24 10:24 Temperature Pulse Rate Respiratory Rate Blood Pressure 104/39 L Pulse Oximetry Oxygen Delivery Oxygen Flow Rate Intake/Output Intake/Output: Intake & Output 01/28/24 01/29/24 01/30/24 01/31/24 23:59 23:59 23:59 23:59 Intake Total 1050 3286.6 1300 Output Total 1900 1950 Balance 1050 1386.6 -650 Meds/Results Medications: Active Medications Generic Name Dose Route Start Last Admin Trade Name Freq PRN Reason Stop Dose Admin Aceta
[2024-01-31] MEDS: IRON SUCROSE COMPLEX 200 MG, IRON SUCROSE COMPLEX 100 MG in SODIUM CHLORIDE 0.9% IV 250 ML 176.67 MG IVPB (14:32)
[2024-01-31 15:07] LABS: Hematocrit 24.3 % (42.0-52.0); Hemoglobin 7.7 g/dL (14.0-18.0)
[2024-01-31] MEDS: MONTELUKAST SODIUM 10 MG TABLET PO (21:20)
[2024-01-31] MEDS: ATORVASTATIN 10 MG TABLET PO (21:20)
[2024-01-31] MEDS: MELATONIN 5 MG TABLET PO (21:20)
[2024-01-31] MEDS: GABAPENTIN 100 MG CAPSULE 200 MG PO (21:20)
[2024-02-01] VITALS (10 sets, daily range): BP systolic 108–152; BP diastolic 52–83; PULSE 63–84; RESP 16–20; TEMP 36.3–36.9; O2SAT 95–99
--- NOTE | 2024-02-01 | ECHO_ITS ---
Patient Info Name: Bob Simmons Age: 73 years : 1950 Gender: Male Ht: 74 in Wt: 319 lbs BSA: 2.81 m2 HR: 72 bpm BP: 135 / 54 mmHg Heart Rhythm: Sinus Rhythm Technical Quality: Fair Exam Date: 02/01/2024 1:20 PM Exam Location: Echo Lab Patient Status: Inpatient Admit Date: 01/29/2024 Staff Ordering Physician: Krissy Dunn Second Language Tutor: Rory Puga RDCS Attending Provider: Keaton Markham MD Referring Physician: Mona HOPPER; Exam Type: CA echo dop color flow w con Study Info Indications - atrial fibrillation Complete two-dimensional, color flow and Doppler transthoracic echocardiogram is performed with contrast to opacify the left ventricle and to improve the deliniation of the left ventricle endocardial borders. Contrast/Agitated Saline Contrast/Ag. Saline: Definity Amount: 4.00 ml Existing IV Access: Yes Summary 1. Left ventricular chamber dimension is normal. 2. Left ventricular systolic function is normal, estimated at 60-65%. 3. The left ventricular diastolic function is grade I diastolic dysfunction. 4. Right ventricular chamber dimension is mildly enlarged. 5. Right ventricular systolic function is normal. 6. Left atrial chamber dimension is mildly enlarged. 7. Right atrial chamber dimension is moderately enlarged. 8. There is small pericardial effusion. 9. No significant valvular disease. Left Ventricle Left ventricular chamber dimension is normal. Left ventricular systolic function is normal, estimated at 60-65%. There is no increased left ventricular wall thickness. The left ventricular diastolic function is grade I diastolic dysfunction. Right Ventricle Right ventricular chamber dimension is mildly enlarged. Right ventricular systolic function is normal. Left Atria Left atrial chamber dimension is mildly enlarged. Right Atria Right atrial chamber dimension is moderately enlarged. Atrial Septum Intact interatrial septum visualized by color flow imaging. Aortic Valve The aortic valve is trileaflet. There is mild aortic valve sclerosis. There is no aortic valve stenosis. There is no aortic valve regurgitation. Pulmonic Valve The pulmonic valve is not well visualized. There is trace pulmonic regurgitation. Mitral Valve The mitral valve has normal leaflets. There is no mitral valve regurgitation. Tricuspid Valve There is trace tricuspid valve regurgitation. Pericardium/Pleural There is small pericardial effusion. Inferior Vena Cava Normal inferior vena cava with <50% collapse upon inspiration consistent with elevated right atrial pressure, 1 mmHg. Aorta The aortic root size at the sinus of Valsalva is normal. Left Ventricular Outflow Tract Name Value Normal LVOT 2D LVOT Diameter 2.64 cm LVOT Doppler LVOT Peak Gradient 4 mmHg LVOT Mean Gradient 2 mmHg LVOT VTI 22.50 cm LVOT VTI/AV VTI Ratio 0.88 LVOT Stroke Volume 122.66 ml LVOT CO 7.52 l/min LVOT CI 2.68 L/min/m2 Pulmonic Valve
[2024-02-01] MEDS: VANCOMYCIN HCL 125 MG ORAL CAPSULE PO ×4 (00:21→17:26)
[2024-02-01] MEDS: MEROPENEM 1 GM/NS 100 ML 1 GM/100 ML BAG IVPB (00:21)
[2024-02-01 05:35] LABS: Hematocrit 22.9 % (42.0-52.0); Hemoglobin 7.6 g/dL (14.0-18.0); Mean Corpuscular HGB Conc 33.2 g/dl (32-36); Mean Corpuscular Hemoglobin 28.5 pg (26-34); Mean Corpuscular Volume 85.8 fl (80-100); Mean Platelet Volume 9.4 fl (7.4-10.4); Platelet Count Result 189 k/mm3 (150-375); Red Blood Count 2.67 M/mm3 (4.6-6.20); Red Cell Distribution Width 16.6 % (11.5-14.5); White Blood Count 9.4 K/mm3 (4.5-10.0)
[2024-02-01 05:53] LABS: Albumin Level 3.4 g/dL (3.5-5.1); Anion Gap 12 mmol/L (4-12); Blood Urea Nitrogen 38 mg/dL (9-20); Calcium 8.2 mg/dL (8.4-10.2); Carbon Dioxide 22 mmol/L (22-30); Chloride 102 mmol/L (98-107); Estimated CRCL calculation 43 ml/min; Estimated Glomerular Filt Rate 31; Glucose 86 mg/dL (65-110); Phosphorus 4.2 mg/dL (2.5-4.5); Potassium 4.5 mmol/L (3.4-5.0); Sodium 136 mmol/L (137-145)
[2024-02-01] MEDS: dilTIAZem HCL 30 MG TABLET PO ×3 (06:22→21:25)
[2024-02-01] MEDS: LEVOTHYROXINE SODIUM 12.5 MCG TABLET PO (06:22)
[2024-02-01] MEDS: UMECLIDINIUM/VILANTEROL 62.5-25 MCG ELLIPTA 1 PUFF INHALATION (07:00)
[2024-02-01] MEDS: MULTIVITAMINS THERAPEUTIC TAB (*BKC) 1 TABLET PO (08:57)
[2024-02-01] MEDS: FUROSEMIDE 40 MG TABLET PO (08:57)
[2024-02-01] MEDS: TIZANIDINE HCL 4 MG TABLET PO (08:57)
[2024-02-01] MEDS: ASCORBIC ACID 500 MG TABLET PO (08:58)
[2024-02-01] MEDS: CALCIUM CARBONATE (OSCAL) 500 MG TABLET PO (08:58)
[2024-02-01] MEDS: FLUTICASONE PROPIONATE 0.05% NA SPR 16 GM BTL (*BKC) 2 SPRAY NASAL (08:58)
[2024-02-01] MEDS: FERROUS SULFATE 325 MG TABLET DR BY MOUTH ×2 (08:58→21:21)
[2024-02-01] MEDS: PANTOPRAZOLE 40 MG TABLET PO (08:58)
[2024-02-01] MEDS: FOLIC ACID 1 MG TABLET PO (08:58)
[2024-02-01] MEDS: CYANOCOBALAMIN 1,000 MCG TABLET 1000 MCG PO (08:58)
[2024-02-01] MEDS: APIXABAN 5 MG TABLET PO ×2 (08:58→21:26)
[2024-02-01] MEDS: BACLOFEN 10 MG TABLET PO ×4 (09:03→21:26)
--- NOTE | 2024-02-01 10:33 | PM.PNCARD ---
Progress Note: A&P Assessment and Plan (1) Elevated troponin: Code(s): R79.89 - Other specified abnormal findings of blood chemistry Status: Acute Plan Elevated troponin likely demand ischemia in setting of CKD stage 4 Anemia likely related to underlying CKD History of atrial fibrillation on anticoagulation, rate controlled COPD on home oxygen Plan Transthoracic echocardiogram pending Continue apixaban 5 mg b.i.d. Continue diltiazem 30 mg t.i.d. Continue Lasix 40 mg daily If echo unremarkable, cardiology will sign off. Please call with any questions. Subjective Date/time seen: 02/01/24 10:33 Interval history: Cardiology follow up for atrial fibrillation Date of service 02/01/2024: Feeling well today and has no complaints. States he had some palpitations yesterday but has not had any today. No chest pain or shortness of breath. Exam Const: General: comfortable and no acute distress Other: Able to lie flat HENMT: Face/Nose/Sinus: Normal nares present and no epistaxis Mouth: Yes moist mucous membranes Eyes: Sclera: sclerae normal Pupils: Equal, round and reactive pupils present Neck: Neck: supple and no JVD Carotids: no bruits Resp: Auscultation: clear to auscultation bilaterally and lung sounds not diminished Other: No chest wall tenderness Cardio: Rate: regular rate Rhythm: regular rhythm Heart sounds: no gallops, no murmurs and no rubs GI: Auscultation: normal bowel sounds Skin: General skin exam: normal color, rashes and/or lesions noted and no erythema Other: Warm Neuro: Cranial nerves: Yes Equal, round and reactive pupils present Speech: normal speech Other: No obvious focal deficit or facial asymmetry Extrem: General: no edema Other: Normal capillary refills Intact distal pulses. Objective Data Vital Signs Vital Signs: Vital Signs - 24 hr 01/31/24 15:27 01/31/24 20:00 01/31/24 22:46 Temperature 36.5 C 36.1 C L Pulse Rate 72 71 Respiratory Rate 18 16 Blood Pressure 121/52 L 145/47 H Pulse Oximetry 95 95 94 Oxygen Delivery Nasal Cannula Oxygen Flow Rate 3 02/01/24 07:00 02/01/24 07:00 02/01/24 06:00 Temperature 36.3 C L Pulse Rate 72 72 70 Respiratory Rate 18 18 20 Blood Pressure 135/54 L Pulse Oximetry 95 99 Oxygen Delivery Nasal Cannula Oxygen Flow Rate 4 Intake/Output Intake/Output: Intake & Output 01/29/24 01/30/24 01/31/24 02/01/24 23:59 23:59 23:59 23:59 Intake Total 1050 3286.6 2060 1060 Output Total 1900 3150 1000 Balance 1050 1386.6 -1090 60 Meds/Results Medications: Active Medications Generic Name Dose Route Start Last Admin Trade Name Denisa PRN Reason Stop Dose Admin Acetaminophen 650 mg 01/29/24 23:37 Acetaminophen 325 Mg Tablet PO Q4H PRN Pain Apixaban 5 mg 01/29/24 23:55 02/01/24 08:58 Apixaban 5 Mg Tablet PO 5 mg Q12HR VAIBHAV Administration Ascorbic Acid 500 mg 01/30/24 09:00 02/01/24 08:58 Ascorbic Acid 500 Mg Tablet PO 500 mg QAM VAIBHAV Administration Atorvastatin Calcium 10 mg 01/29/24 23:55 01/31/24 21:20 Atorvastatin 10 Mg Tablet PO 10 mg HS VAIBHAV Administration Baclofen 10 mg 01/30/24 08:00 02/01/24 09:03 Baclofen 10 Mg Tablet PO 10 mg 0800,1200,1600,2000 VAIBHAV Administration Calcium Carbonate 500 mg 01/30/24 09:00 02/01/24 08:58 Calcium Carbonate (Oscal) 500 Mg Tablet PO 500 mg QAM VAIBHAV Administration Cyanocobalamin 1,000 mcg 01/30/24 09:00 02/01/24 08:58 Cyanocobalamin 1,000 Mcg Tablet PO 1,000 mcg QAM VAIBHAV Administration Diltiazem HCl 30 mg 01/30/24 06:00 02/01/24 06:22 Diltiazem Hcl 30 Mg Tablet PO 30 mg Q8HR VAIBHAV Administration Diphenhydramine HCl 25 mg 01/29/24 23:37 Diphenhydramine Hcl Cap 25 Mg Capsule PO Q6H PRN Itching Docusate Sodium 100 mg 01/29/24 23:37 Docusate Sodium 100 Mg Capsule PO Q12H PRN Diarrhea Epoetin Dannie-ep
--- NOTE | 2024-02-01 12:54 | PM.IMPN ---
Progress Note: A&P Assessment and Plan (1) C. difficile colitis: Code(s): A04.72 - Enterocolitis due to Clostridium difficile, not specified as recurrent Status: Acute Assessment and Plan: - PO Vancomycin 125 mg q 6 hr begun 01/29 (continue for 10-14 days) - 01/31 STOPPED Meropenem (2) Urinary tract infection: Code(s): N39.0 - Urinary tract infection, site not specified Status: Acute Assessment and Plan: - UA:Cloudy, 1+ protein, 2+ blood, 3+ leuk esterase, 6-10 RBC, greater than 100 WBC, 4+ bacteria, no epithelial cells. - UC pending , obtained on 01/28 - previous micro reviewed, hx of ESBL - started on ceftriaxone, post micro review transitioned to meropenem on 01/28 - replaced chronic indwelling Pereira 01/29 - await c/s 01/29 - 01/30 urine with only MIXED GENITAL DREA, NO evidence for UTI, therefore meropenem DISCONTINUED (3) Anemia in CKD (chronic kidney disease): Qualifiers: Chronic kidney disease stage: unspecified stage Qualified Code(s): N18.9 - Chronic kidney disease, unspecified; D63.1 - Anemia in chronic kidney disease Code(s): N18.9 - Chronic kidney disease, unspecified; D63.1 - Anemia in chronic kidney disease Status: Chronic Assessment and Plan: - hgb 9.1, MCV 85.7, MCHC 33.0 - previously 12.3 on 10/28/2023 - resumed Epogen 10,000 SQ 3 times weekly (MWF), will give 20,000 units01/28 -02/01 hgb 7.8 01/30 Hgb 7.4, f/u H/h PM, IV iron sucrose x1 01/31 hemoglobin 7.6. Not improving. Transfuse 1 unit for symptomatic anemia, he has extreme fatigue. Check ABG as well. Patient educated on the risks versus benefits of blood transfusion and he wants to move forward with that. Blood loss due to C diff or suppression of bone marrow due to infection could be contributing as well. (4) OLIVER (acute kidney injury): Code(s): N17.9 - Acute kidney failure, unspecified Status: Acute Assessment and Plan: - OLIVER superimposed on CKD - creatinine2.3 and GFR 28 -01/29 creatinine 1.9 at baseline after hydration 01/30 1.8 (5) Elevated troponin: Code(s): R79.89 - Other specified abnormal findings of blood chemistry Status: Acute Assessment and Plan: -likely demand related due to anemia infection and hypotension No acute coronary syndrome Pending echocardiogram Plan Full code. Apixaban 5 mg p.o. b.i.d.. [employer] omeprazole substituted with Protonix 40 mg p.o. q.a.m. Requires blood transfusion and continued monitoring to prevent no dynamic deterioration. Continue inpatient admission. Subjective Date/time seen: 02/01/24 12:54 Interval history: Patient complains of extreme weakness. Nursing reports he appears so weak they have difficult time to wake him. Reports stool in the colostomy bag is more formed. Denies abdominal pain cough shortness of breath chest pain. Review of Systems Review of Systems: All systems reviewed & are unremarkable except as noted in HPI and below (Subjective) Exam Const: General: comfortable and no acute distress Other: Pale appearing Eyes: Pupils: Equal, round and reactive pupils present Neck: Neck: supple Resp: Effort & Inspection: normal respiratory effort Auscultation: clear to auscultation bilaterally Cardio: Rate: regular rate Rhythm: regular rhythm GI: GI Palp: Yes Soft to palpation Extrem: General: edema (Trivial) Objective Data Vital Signs Vital Signs: Vital Signs - 24 hr 01/31/24 15:27 01/31/24 20:00 01/31/24 22:46 Temperature 97.7 F 97.0 F L Pulse Rate 72 71 Respiratory Rate 18 16 Blood Pressure 121/52 L 145/47 H Pulse Oximetry 95 95 94 Oxygen Delivery Nasal Cannula Oxygen Flow Rate 3 02/01/24 07:00 02/01/24 07:00 02/01/24 06:00 Temperature 97.4 F L Pulse Rate 72 72 70 Respiratory Rate 18 18 20 Blood Pressure 135/54 L Pulse Oximetry 95 99 Oxygen Delivery Nasal Cannula Oxygen Flow Rate 4 Intake/Output Intake/Output: Intak
[2024-02-01 13:11] LABS: Alveolar/Arterial O2 Gradient 138.2 mmHg; Base Excess ABG -3.2 mEq/l (+/-2.0); Carboxyhemoglobin 0.9 % THb (0-2.0); Fractional Inspired Oxygen 36 %; HCO3 ABG 21.6 mEq/l (22.0-26.0); Methemoglobin ABG 0.3 %THb (0-1.5); Oxygen Content ABG 10.8 %vol (16.0-22.0); Oxygen Saturation ABG 94.9 % (95.0-100.0); Oxyhemoglobin 93.4 % THb (90.0-100.0); PCO2 ABG 37.6 mmHg (35.0-45.0); PO2 ABG 74.9 mmHg (80.0-100.0); PO2 FiO2 Ratio Arterial Blood 2.08 %; Reduced Hemoglobin 5.4 %THb (0-5.0); Total Hemoglobin 8.1 g/dL (12.0-18.0); pH ABG 7.378 (7.350-7.450)
[2024-02-01 13:12] LABS: Device NASAL CANNULA; Modified Allen's Test Pass; Site Drawn RIGHT RADIAL
[2024-02-01] MEDS: PERFLUTREN LIPID MICROSPHERES 1.5 ML VIAL DILUTED TO 10 ML TOTAL VOLUME IV PUSH (14:26)
--- NOTE | 2024-02-01 14:26 | IVDEFINITY ---
Prior to administration of IV Definity the patient was educated on the risks and benefits of the imaging enhancing agent including potential adverse side effects. The patient verbalized understanding. Allergies were verified. No exclusion criteria were identified and at least one of the following inclusion criteria were met: 1) physician request, 2) patient technically difficult to image (per the [place] [employer] guidelines of two or more segments not discernable within the apical view), or 3) questionable left ventricular function. ?
[2024-02-01] MEDS: SODIUM CHLORIDE 0.9% IV 250 ML 30 ML IV CONT (14:51)
[2024-02-01] MEDS: polyethylene glycoL 3350 17 GM POWD.PACK PO (17:28)
[2024-02-01 18:08] LABS: Hematocrit 27.1 % (42.0-52.0); Hemoglobin 8.8 g/dL (14.0-18.0)
[2024-02-01] MEDS: ATORVASTATIN 10 MG TABLET PO (21:21)
[2024-02-01] MEDS: GABAPENTIN 100 MG CAPSULE 200 MG PO (21:21)
[2024-02-01] MEDS: MONTELUKAST SODIUM 10 MG TABLET PO (21:25)
[2024-02-01] MEDS: MELATONIN 5 MG TABLET PO (21:26)
[2024-02-01] MEDS: EPOETIN ALFA-EPBX 10,000 UNITS/ML VIAL 10000 UNITS SUB-Q (21:35)
[2024-02-02] MEDS: VANCOMYCIN HCL 125 MG ORAL CAPSULE PO ×3 (00:22→13:44)
[2024-02-02 05:46] LABS: Hematocrit 25.4 % (42.0-52.0); Hemoglobin 8.4 g/dL (14.0-18.0); Mean Corpuscular HGB Conc 33.1 g/dl (32-36); Mean Corpuscular Hemoglobin 28.3 pg (26-34); Mean Corpuscular Volume 85.5 fl (80-100); Mean Platelet Volume 9.3 fl (7.4-10.4); Platelet Count Result 200 k/mm3 (150-375); Red Blood Count 2.97 M/mm3 (4.6-6.20); Red Cell Distribution Width 16.7 % (11.5-14.5); White Blood Count 8.6 K/mm3 (4.5-10.0)
[2024-02-02 05:57] LABS: Magnesium 1.1 mg/dL (1.6-2.3)
[2024-02-02 05:59] LABS: Albumin Level 3.5 g/dL (3.5-5.1); Anion Gap 10 mmol/L (4-12); Blood Urea Nitrogen 37 mg/dL (9-20); Calcium 8.1 mg/dL (8.4-10.2); Carbon Dioxide 22 mmol/L (22-30); Chloride 103 mmol/L (98-107); Estimated CRCL calculation 50 ml/min; Estimated Glomerular Filt Rate 37; Glucose 86 mg/dL (65-110); Phosphorus 3.8 mg/dL (2.5-4.5); Potassium 4.1 mmol/L (3.4-5.0); Sodium 135 mmol/L (137-145)
[2024-02-02 06:00] VITALS: BP 131/49; PULSE 86; RESP 18; TEMP 35.8; O2SAT 96
[2024-02-02] MEDS: dilTIAZem HCL 30 MG TABLET PO (06:03)
[2024-02-02] MEDS: LEVOTHYROXINE SODIUM 12.5 MCG TABLET PO (06:03)
[2024-02-02 07:25] VITALS: PULSE 76; RESP 18; O2SAT 95
[2024-02-02] MEDS: UMECLIDINIUM/VILANTEROL 62.5-25 MCG ELLIPTA 1 PUFF INHALATION (07:25)
[2024-02-02] MEDS: ASCORBIC ACID 500 MG TABLET PO (09:32)
[2024-02-02] MEDS: FERROUS SULFATE 325 MG TABLET DR BY MOUTH (09:32)
[2024-02-02] MEDS: FUROSEMIDE 40 MG TABLET PO (09:32)
[2024-02-02] MEDS: APIXABAN 5 MG TABLET PO (09:32)
[2024-02-02] MEDS: PANTOPRAZOLE 40 MG TABLET PO (09:32)
[2024-02-02] MEDS: CALCIUM CARBONATE (OSCAL) 500 MG TABLET PO (09:33)
[2024-02-02] MEDS: FOLIC ACID 1 MG TABLET PO (09:33)
[2024-02-02] MEDS: TIZANIDINE HCL 4 MG TABLET PO (09:33)
[2024-02-02] MEDS: MULTIVITAMINS THERAPEUTIC TAB (*BKC) 1 TABLET PO (09:33)
[2024-02-02] MEDS: CYANOCOBALAMIN 1,000 MCG TABLET 1000 MCG PO (09:33)
[2024-02-02] MEDS: FLUTICASONE PROPIONATE 0.05% NA SPR 16 GM BTL (*BKC) 2 SPRAY NASAL (09:33)
[2024-02-02 09:36] VITALS: O2SAT 95
[2024-02-02] MEDS: BACLOFEN 10 MG TABLET PO (09:36)
[2024-02-02 12:20] VITALS: BP 138/47; PULSE 75; RESP 18; TEMP 36.3; O2SAT 97
[2024-02-02 13:21] VITALS: BP 117/47
[2024-02-02 15:21] VITALS: BP 136/51; PULSE 65; RESP 16; TEMP 36.7; O2SAT 96
--- NOTE | 2024-02-02 15:43 | PC.NURSE ---
Patient refusing cardizem stating my bottom number on my blood pressure is too low
--- NOTE | 2024-02-02 16:06 | PM.DS ---
DS: Admitting Diagnosis Discharge Date February 02, 2024 Admitting Diagnosis Low hemoglobin and hypotension DS: Discharge Diagnosis Discharge Diagnosis (1) C. difficile colitis: Code(s): A04.72 - Enterocolitis due to Clostridium difficile, not specified as recurrent Status: Acute (2) OLIVER (acute kidney injury): Code(s): N17.9 - Acute kidney failure, unspecified Status: Acute (3) Elevated troponin: Code(s): R79.89 - Other specified abnormal findings of blood chemistry Status: Acute (4) Anemia in CKD (chronic kidney disease): Qualifiers: Chronic kidney disease stage: unspecified stage Qualified Code(s): N18.9 - Chronic kidney disease, unspecified; D63.1 - Anemia in chronic kidney disease Code(s): N18.9 - Chronic kidney disease, unspecified; D63.1 - Anemia in chronic kidney disease Status: Chronic DS: Summary Hospital Course Hospital Course: 73-year-old with multiple comorbidities presents with a hemoglobin low and hypotension. Patient found to have C diff colitis. Treated with meropenem. Also found to have UTI. Treated with ceftriaxone and then meropenem. However, urine culture on 01/30 growing mixed genital mika. Antibiotics discontinued. On 01/31 patient had extreme fatigue and his hemoglobin was 7.6. Patient elected to follow through with 1 unit blood transfusion. Repeat hemoglobin 8.4. Patient had an OLIVER and CKD which improved after fluid resuscitation. He was stable for discharge to home on 02/02/2024. Status at Discharge Overall status at discharge: patient is back to baseline Time Spent with Patient Time attestation: Total time spent providing and/or coordinating discharge services: Time spent: Greater than 30 minutes Exam Const: General: comfortable and no acute distress Eyes: Pupils: Equal, round and reactive pupils present Neck: Neck: supple Resp: Effort & Inspection: normal respiratory effort Auscultation: clear to auscultation bilaterally Cardio: Rate: regular rate Rhythm: regular rhythm GI: GI Palp: Yes Soft to palpation and No Firmness to palpation present (GI) Extrem: General: edema (Trivial) DS: Data Data Completed and Pending Labs on day of discharge: Labs from last 24 hours 02/02/24 02/01/24 02/01/24 05:21 17:58 13:06 WBC 8.6 RBC 2.97 L Hgb 8.4 L 8.8 L Hct 25.4 L 27.1 L MCV 85.5 MCH 28.3 MCHC 33.1 RDW 16.7 H Plt Count 200 MPV 9.3 Sodium 135 L Potassium 4.1 Chloride 103 Carbon Dioxide 22 Anion Gap 10 BUN 37 H Creatinine 1.80 H Estim Creat Clear Calc 50 Estimated GFR 37 L Glucose 86 Calcium 8.1 L Phosphorus 3.8 Magnesium 1.1 L Albumin 3.5 Crossmatch See Detail Preliminary micro results at discharge 01/29/24 16:16 Blood Culture - Preliminary Blood 01/29/24 16:16 Blood Culture - Preliminary Blood Discharge Plan Discharge Attending physician on discharge: Kiara Richardson Consulting providers: Karlie Gonzalez; Prem Austin; Wang Bhagat; Krissy Dunn; Sb Orellana; Pavan Morfin V.; Reji Coker; Juan M Smith Discharging Clinician: Kiara Richardson Patient Disposition: [facility] Assisted/Asst Living Activity: november shower Diet: as tolerated Patient Instructions: Antibiotic Form, Apixaban (By mouth), Heart Failure (DC), Urinary Tract Infection in Men (DC), Safe Use of Anticoagulants (DC) Stand Alone Forms: General Discharge Information Follow-up/Referrals: Luigi Cheema MD [Primary Care Provider] - Call for Appointment Discharge Medications: New vancomycin 125 mg Capsule 125 mg PO Q6HR 6 Days Qty: 24 0RF Continued Retacrit 10,000 unit/mL Solution 10,000 unit SUBCUT 3XW Rx Instructions: Thursday and Thursday Zyrtec 10 mg capsule 10 mg PO DAILY PRN (Reason: Allergy Symptoms) Flonase Sensimist 27.5 mcg/actuation spray,suspension 2 spray
[2024-02-02 17:45] LABS: SARS-CoV-2 RNA PCR Negative (Negative)
== END 2024-02-02 18:30 | DRG 372 ==
LOC: ANHED 16:23 → ANHIMU 18:05 → ANH3MED 01-30 16:58
PROVIDERS: Internal Medicine; Student in an Organized Health Care Education/Training Program; Admitting Provider Internal Medicine; Emergency Provider Emergency Medicine; PCP Hospitalist; Visit Provider General Practice
DX: A04.72 Enterocolitis due to Clostridium difficile, not specified as recurrent (principal); G82.20 Paraplegia, unspecified; I13.0 Hypertensive heart and chronic kidney disease with heart failure and stage 1 through stage 4 chronic kidney disease, or unspecified chronic kidney disease; N17.9 Acute kidney failure, unspecified; I24.89 Other forms of acute ischemic heart disease; I48.20 Chronic atrial fibrillation, unspecified; I47.29 Other ventricular tachycardia; N18.9 Chronic kidney disease, unspecified; I50.9 Heart failure, unspecified; I73.9 Peripheral vascular disease, unspecified; D63.1 Anemia in chronic kidney disease; J43.9 Emphysema, unspecified; K21.9 Gastro-esophageal reflux disease without esophagitis; E03.9 Hypothyroidism, unspecified; E53.8 Deficiency of other specified B group vitamins; E55.9 Vitamin D deficiency, unspecified; G62.9 Polyneuropathy, unspecified; N31.9 Neuromuscular dysfunction of bladder, unspecified; R79.89 Other specified abnormal findings of blood chemistry; Z20.822 Contact with and (suspected) exposure to COVID-19; Z79.01 Long term (current) use of anticoagulants; S24.154S Other incomplete lesion at T11-T12 level of thoracic spinal cord, sequela; Z87.891 Personal history of nicotine dependence; Z93.3 Colostomy status
CPT/HCPCS: 36415; 36430; 36600; 71046; 80053; 80069; 81001; 82274; 82375; 82805; 83050; 83605; 83735; 84443; 84484; 85014; 85018; 85025; 85027; 85610; 85730; 86140; 86850; 86900; 86901; 86923; 87040; 87086; 87493; 87635; 93005; 94640; 96360; 96361; 99285; A9270; C8929; J0696; J1756; J2185; J7030; J7050; P9016; Q4081; Q5105; Q9957

== ENCOUNTER 2024-04-27 06:55 | Inpatient (IN) | payer MEDICARE, BC, MEDICAID, SELFPAY ==
[2024-04-27] VITALS (23 sets, daily range): BP systolic 126–169; BP diastolic 49–90; PULSE 86–111; RESP 12–20; TEMP 36.3–36.6; O2SAT 95–100; BMI 40.9
--- NOTE | ~2024-04-27 | US_ITS ---
BILATERAL LOWER EXTREMITY VENOUS ULTRASOUND Ordering provider: Demetrice Mendoza PA-C History: . bilateral lower extremity edema . Comparison: None. FINDINGS: RIGHT LOWER EXTREMITY VEINS: --COMMON FEMORAL: Patent and free of thrombus. Normal compressibility, phasic flow and augmentation. --PROXIMAL SUPERFICIAL FEMORAL: Patent and free of thrombus. Normal compressibility, phasic flow and augmentation. --DISTAL SUPERFICIAL FEMORAL: Patent and free of thrombus. Normal compressibility, phasic flow and au gmentation. --POPLITEAL: Patent and free of thrombus. Normal compressibility, phasic flow and augmentation. --POSTERIOR TIBIAL: Patent and free of thrombus. Normal compressibility, phasic flow and augmentation . LEFT LOWER EXTREMITY VEINS: --COMMON FEMORAL: Patent and free of thrombus. Normal compressibility, phasic flow and augmentation. --PROXIMAL SUPERFICIAL FEMORAL: Patent and free of thrombus. Normal compressibility, phasic flow and augmentation. --DISTAL SUPERFICIAL FEMORAL: Patent and free of thrombus. Normal compressibility, phasic flow and au gmentation. --POPLITEAL: Patent and free of thrombus. Normal compressibility, phasic flow and augmentation. --POSTERIOR TIBIAL: Patent and free of thrombus. Normal compressibility, phasic flow and augmentation . IMPRESSION: Negative bilateral lower extremity venous US. No deep vein thrombosis. Reviewed, dictated and finalized at location A.
--- NOTE | ~2024-04-27 | XR_ITS ---
XR chest 1V portable 04/27/2024 08:03 Indication: Shortness of breath and cough Procedure: AP portable chest Comparison: Comparison to multiple prior studies sequentially, with oldest reviewed study dated 08/14/2022. Findings: Cardiomegaly. Mild interstitial edema. No pleural effusion or pneumothorax. Impression: 1: Cardiomegaly with mild interstitial edema. Reviewed, dictated and finalized at location B. Impression: 1: Cardiomegaly with mild interstitial edema.
[2024-04-27] MEDS: methylPREDNISolone SOD SUCC 125 MG VIAL IV PUSH (07:27)
[2024-04-27] MEDS: IPRATROPIUM BR 0.02% INH SOLN 0.5 MG/2.5 ML VIAL 1.5 MG INHALATION (07:31)
[2024-04-27] MEDS: ALBUTEROL SULFATE NEB 2.5 MG/3 ML INH 15 MG INHALATION (07:31)
[2024-04-27 07:38] LABS: Basophils Absolute Auto 0.1 K/mm3 (0.0-0.1); Basophils Percent Auto 0.5 % (0.2-1.2); Eosinophils Percent Auto 6.6 % (0-4.4); Hematocrit 30.6 % (42.0-52.0); Hemoglobin 9.7 g/dL (14.0-18.0); Immature Granulocyte Absolute 0.08 K/mm3 (0.00-0.031); Immature Granulocyte Percent A 0.5 % (0-0.5); Lymphocytes Absolute Auto 2.11 K/mm3 (0.9-3.2); Lymphocytes Percent Auto 14.1 % (18.3-44.2); Mean Corpuscular HGB Conc 31.7 g/dl (32-36); Mean Corpuscular Hemoglobin 27.9 pg (26-34); Mean Corpuscular Volume 87.9 fl (80-100); Mean Platelet Volume 10.2 fl (7.4-10.4); Monocytes Absolute Auto 0.8 K/mm3 (0.1-0.6); Monocytes Percent Auto 5.3 % (2.6-8.5); Neutrophils Absolute Auto 10.9 K/mm3 (1.3-6.7); Platelet Count Result 243 k/mm3 (150-375); Red Blood Count 3.48 M/mm3 (4.6-6.20); Red Cell Distribution Width 15.1 % (11.5-14.5)
[2024-04-27 07:48] LABS: INR 1.3; Prothrombin Time 16.7 Seconds (11.1-14.7)
[2024-04-27 07:49] LABS: Partial Thromboplastin Time 32.6 Seconds (22.3-36.8)
[2024-04-27 07:53] LABS: Alanine Aminotransferase 26 U/L (6-50); Alkaline Phosphatase 283 U/L (38-126); Anion Gap 8 mmol/L (4-12); Aspartate Amino Transferase 27 U/L (17-59); Bilirubin,Total 0.8 mg/dL (0.2-1.3); Blood Urea Nitrogen 25 mg/dL (9-20); Calcium 8.1 mg/dL (8.4-10.2); Carbon Dioxide 29 mmol/L (22-30); Chloride 97 mmol/L (98-107); Estimated CRCL calculation 55 ml/min; Estimated Glomerular Filt Rate 42; Glucose 146 mg/dL (65-110); Potassium 3.9 mmol/L (3.4-5.0); Sodium 134 mmol/L (137-145)
[2024-04-27 08:58] LABS: NT Pro B Type Natriuretic Pept 15200 pg/mL (19.9-100)
[2024-04-27] MEDS: FUROSEMIDE INJ 40 MG/4 ML VIAL IV PUSH ×2 (09:16→20:57)
--- NOTE | 2024-04-27 09:43 | ED.SOB ---
HPI - SOB/Dyspnea General Chief Complaint: Shortness of Breath/Dyspnea Stated Complaint: dyspnea Time Seen by Provider: 04/27/24 07:02 History of Present Illness HPI Narrative: Patient is a 73-year-old male who presents ER with shortness of breath. Sudden onset last night. Associated with orthopnea. Has wheezing as well. Known history of CHF and COPD. Wears 2 L chronically. Related Data Home Medications Medication Instructions Recorded Confirmed atorvastatin 10 mg tablet 10 mg PO HS 04/26/20 04/20/24 ascorbic acid (vitamin C) 500 mg 500 mg PO DAILY 12/26/21 04/20/24 capsule,extended release ferrous sulfate 325 mg (65 mg 325 mg PO Q12H 12/26/21 04/20/24 iron) tablet furosemide 40 mg tablet 40 mg PO DAILY 12/26/21 04/20/24 guaifenesin 600 mg tablet, 600 mg PO Q12H PRN Cough 12/26/21 04/20/24 extended release 12 hr (Mucinex) calcium carbonate (Antacid Ext Str 300 mg PO TID 08/07/22 04/20/24 (calcium carb)) ipratropium bromide 0.02 % 2.5 ml inhalation QAM shortness of 08/07/22 04/20/24 solution for inhalation breath or wheezing baclofen 10 mg tablet 10 mg PO QID 02/19/23 04/20/24 diphenhydramine HCl 25 mg tablet 25 mg PO Q6H PRN Itching 02/19/23 04/20/24 (Allergy (diphenhydramine)) docusate sodium 100 mg capsule 100 mg PO Q12H PRN Diarrhea 02/19/23 04/20/24 (Dulcolax Stool Softener (docusate)) ergocalciferol (vitamin D2) 1,250 1,250 mcg PO WEEKLY 02/19/23 04/20/24 mcg (50,000 unit) capsule gabapentin 100 mg capsule 200 mg PO QHS 02/19/23 04/20/24 mecobalamin (vitamin B12) 1,000 1,000 mcg PO DAILY 02/19/23 04/20/24 mcg chewable tablet melatonin 5 mg capsule 5 mg PO QHS 02/19/23 04/20/24 montelukast 10 mg tablet 10 mg PO QHS 02/19/23 04/20/24 (Singulair) omeprazole 20 mg capsule,delayed 20 mg PO DAILY 02/19/23 04/20/24 release simethicone 80 mg chewable tablet 80 mg PO Q6H PRN Abdominal 02/19/23 04/20/24 (Gas Relief (simethicone)) Discomfort umeclidinium 62.5 mcg-vilanterol 1 inh inhalation DAILY 02/19/23 04/20/24 25 mcg/actuation powdr for inhalation (Anoro Ellipta) epoetin willie-epbx 10,000 unit/mL 10,000 unit subcut 3XW 09/30/23 04/20/24 injection solution (Retacrit) cetirizine 10 mg capsule (Zyrtec) 10 mg PO DAILY PRN Allergy Symptoms 12/23/23 04/20/24 fluticasone furoate 27.5 2 spray intranasal DAILY 12/23/23 04/20/24 mcg/actuation nasal spray,suspension (Flonase Sensimist) levothyroxine 13 mcg capsule 13 mcg PO DAILY 12/23/23 04/20/24 multivitamin 1 tablet PO DAILY 12/23/23 04/20/24 tizanidine 4 mg capsule 4 mg PO DAILY 12/23/23 04/20/24 acetaminophen 650 mg 650 mg PO Q4H PRN Pain 01/29/24 04/20/24 tablet,extended release apixaban 5 mg tablet (Eliquis) 5 mg PO BID 01/29/24 04/20/24 lanolin alcohols-mineral 1 applic topical DAILY PRN Dry Skin 01/29/24 04/20/24 oil-w.petrolatum-ceresin topical cream (Eucerin topical cream) meclizine 12.5 mg tablet 12.5 mg PO TID PRN Dizziness Or 01/29/24 04/20/24 Vertigo naloxone 4 mg/actuation nasal 4 mg intranasal Q3M PRN Congestion 01/29/24 04/20/24 spray (Narcan) olopatadine 0.2 % eye drops 1 drp EACH EYE QID PRN dry eye 01/29/24 04/20/24 polyethylene glycol 3350 17 gram 17 g PO QPM 01/29/24 04/20/24 oral powder packet (Miralax) Allergies Allergy/AdvReac Type Severity Reaction Status Date / Time azithromycin Allergy Unknown Verified 04/20/24 10:34 [From Zithromax Z-Benny] codeine Allergy Unknown Verified 04/20/24 10:34 morphine Allergy Unknown Verified 04/20/24 10:34 [facility] Past Medical History Medical History (Updated 04/27/24 @ 14:08 by Vincent Rivera MD) B12 deficiency C. difficile colitis Chronic anemia Chronic anticoagulation Chronic indwelling Pereira catheter Chronic kidney disease With baseline creatinine between 1.7 and 2 Chronic respiratory failure with hypoxia, on home oxygen therapy Dry gangrene (04/2020) Emphysema/COPD Gastroesophageal reflux disease Heart failure with preserved ejectio
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
[2024-04-27] MEDS: IPRATROPIUM 0.5 MG/ALBUTEROL SULFATE 2.5 MG AMPUL.NEB 3 ML INHALATION ×2 (13:46→20:06)
[2024-04-27 15:30] LABS: Add Urine Microscopic? YES; Appearance Urine Cloudy (Clear); Bacteria Urine 4+ /hpf; Bilirubin Urine Negative (Negative); Blood Urine 1+ (Negative); Color Urine Yellow (Yellow); Glucose Urine UA Negative (Negative); Ketones Urine Negative (Negative); Leukocyte Esterase Ur 3+ LEU/UL (Negative); Need Manual Microscopic Reviewed; Nitrate Urine Positive (Negative); Protein Urine Trace mg/dL (Negative); RBC Urine 0-2 /hpf (0-2); Specific Grav Ur 1.007 (1.001-1.035); Squamous Epithelial Cell Urine None Seen /hpf (Few); Urobilinogen Urine 0.2 mg/dL (<2.0); WBC Urine 51-100 /hpf (0-3)
[2024-04-27 17:47] LABS: Influenza A QL RT-PCR Negative (Negative); Influenza B QL RT-PCR Negative (Negative); RSV RNA, RT-PCR Negative (Negative); SARS-CoV-2 RNA PCR Negative (Negative)
[2024-04-27] MEDS: prednisoLONE ACETATE 1% OPHTH 5 ML 1 DROP LEFT EYE (21:10)
[2024-04-27] MEDS: OFLOXACIN 0.3% OPHTH SOLN 5 ML BTL 1 DROP EACH EYE (21:11)
[2024-04-27] MEDS: KETOROLAC 0.5% OP SOLN 5 ML BOTTLE 1 DROP LEFT EYE (21:13)
[2024-04-27] MEDS: APIXABAN 5 MG TABLET PO (21:32)
[2024-04-27] MEDS: dilTIAZem HCL 30 MG TABLET PO (21:33)
[2024-04-27] MEDS: CALCIUM CARBONATE (TUMS) 500 MG (200 MG ELEMENTAL) PO (21:34)
[2024-04-27] MEDS: BACLOFEN 10 MG TABLET PO (21:34)
[2024-04-27] MEDS: ATORVASTATIN 10 MG TABLET PO (21:34)
[2024-04-27] MEDS: MELATONIN 5 MG TABLET PO (21:35)
[2024-04-27] MEDS: MONTELUKAST SODIUM 10 MG TABLET PO (21:35)
[2024-04-27 23:15] LABS: CRP 2.5 mg/dL (<1.0); Potassium 4.8 mmol/L (3.4-5.0)
[2024-04-28] VITALS (10 sets, daily range): BP systolic 118–147; BP diastolic 48–58; PULSE 72–88; RESP 20; TEMP 36.1–36.6; O2SAT 93–96
[2024-04-28 00:37] LABS: Procalcitonin 1.8 ng/mL
--- NOTE | 2024-04-28 03:52 | PCRCNOTE ---
Overnight apnea link study ordered for patient the night of 04/27/24. RT arrived to patient room to discuss completing the study. Patient refused the overnight study, stating there is no need for it. RT explained the importance of it, patient continued to refuse the study. RT and nurse aware.
--- NOTE | 2024-04-28 03:58 | PCRCNOTE ---
Patient refused 0200 updraft treatment stating he did not want to be awakened from sleep. Treatment to resume at 0800.
[2024-04-28] MEDS: LEVOTHYROXINE SODIUM 25 MCG TABLET PO (05:53)
[2024-04-28] MEDS: dilTIAZem HCL 30 MG TABLET PO ×2 (05:54→22:37)
[2024-04-28] MEDS: polyethylene glycoL 3350 17 GM POWD.PACK PO (06:00)
[2024-04-28] MEDS: IPRATROPIUM 0.5 MG/ALBUTEROL SULFATE 2.5 MG AMPUL.NEB 3 ML INHALATION ×3 (07:11→20:00)
[2024-04-28] MEDS: UMECLIDINIUM/VILANTEROL 62.5-25 MCG ELLIPTA 1 PUFF INHALATION (07:15)
[2024-04-28 07:18] LABS: Hematocrit 26.8 % (42.0-52.0); Hemoglobin 8.8 g/dL (14.0-18.0); Mean Corpuscular HGB Conc 32.8 g/dl (32-36); Mean Corpuscular Volume 88.4 fl (80-100); Mean Platelet Volume 10.4 fl (7.4-10.4); Platelet Count Result 206 k/mm3 (150-375); Red Blood Count 3.03 M/mm3 (4.6-6.20); Red Cell Distribution Width 14.7 % (11.5-14.5); White Blood Count 8.4 K/mm3 (4.5-10.0)
[2024-04-28 07:41] LABS: Anion Gap 5 mmol/L (4-12); Blood Urea Nitrogen 32 mg/dL (9-20); Calcium 8.4 mg/dL (8.4-10.2); Carbon Dioxide 35 mmol/L (22-30); Chloride 93 mmol/L (98-107); Estimated CRCL calculation 55 ml/min; Estimated Glomerular Filt Rate 42; Glucose 137 mg/dL (65-110); Magnesium 1.2 mg/dL (1.6-2.3); Sodium 133 mmol/L (137-145)
[2024-04-28 08:07] LABS: Thyroid Stimulating Hormone Reflex 0.419 uIU/mL (0.465-4.68)
[2024-04-28] MEDS: CHOLECALCIFEROL 1,000 UNITS TABLET 1000 UNITS PO (08:49)
[2024-04-28] MEDS: BACLOFEN 10 MG TABLET PO ×4 (08:49→20:14)
[2024-04-28] MEDS: CALCIUM CARBONATE (TUMS) 500 MG (200 MG ELEMENTAL) PO ×3 (08:49→17:27)
[2024-04-28] MEDS: PANTOPRAZOLE 40 MG TABLET PO (08:49)
[2024-04-28] MEDS: GABAPENTIN 100 MG CAPSULE 200 MG PO (08:49)
[2024-04-28] MEDS: ASCORBIC ACID 500 MG TABLET PO (08:49)
[2024-04-28] MEDS: APIXABAN 5 MG TABLET PO ×2 (08:49→20:13)
[2024-04-28] MEDS: predniSONE 20 MG TABLET 40 MG PO (08:49)
[2024-04-28] MEDS: FERROUS SULFATE 325 MG TABLET DR PO ×2 (08:49→17:27)
[2024-04-28] MEDS: CYANOCOBALAMIN 1,000 MCG TABLET 1000 MCG PO (08:49)
[2024-04-28] MEDS: TIZANIDINE HCL 4 MG TABLET PO (08:49)
[2024-04-28] MEDS: MULTIVITAMINS THERAPEUTIC TAB (*BKC) 1 TABLET PO (08:49)
[2024-04-28] MEDS: FUROSEMIDE INJ 40 MG/4 ML VIAL IV PUSH ×2 (08:50→20:14)
[2024-04-28] MEDS: FLUTICASONE PROPIONATE 0.05% NA SPR 16 GM BTL (*BKC) 2 SPRAY NASAL (08:50)
[2024-04-28] MEDS: prednisoLONE ACETATE 1% OPHTH 5 ML 1 DROP EACH EYE ×3 (08:54→17:29)
[2024-04-28] MEDS: KETOROLAC 0.5% OP SOLN 5 ML BOTTLE 1 DROP EACH EYE ×4 (08:54→20:15)
[2024-04-28] MEDS: OFLOXACIN 0.3% OPHTH SOLN 5 ML BTL 1 DROP RIGHT EYE ×3 (08:54→17:29)
[2024-04-28] MEDS: BRIMONIDINE TARTRATE 0.1% 5 ML OPHTH DROPS 1 DROP EACH EYE ×4 (08:56→20:15)
[2024-04-28 09:13] LABS: Free T4 Free Thyroxine Reflex 1.45 ng/dL (0.78-2.19)
[2024-04-28 10:46] LABS: Total Triiodothyronine (T3) 0.77 NG/ML (0.97-1.69)
--- NOTE | 2024-04-28 13:08 | PM.IMPN ---
Progress Note: A&P Assessment and Plan (1) Chronic obstructive pulmonary disease: Qualifiers: COPD type: unspecified COPD Qualified Code(s): J44.9 - Chronic obstructive pulmonary disease, unspecified Code(s): J44.9 - Chronic obstructive pulmonary disease, unspecified Status: Acute Assessment and Plan: Prednisone 40 mg oral daily Continue oxygen with titration as needed Duoneb q 6 hrs Continue montelukast Continue Umeclidinium (2) Heart failure with preserved ejection fraction: Qualifiers: Heart failure chronicity: unspecified Qualified Code(s): I50.30 - Unspecified diastolic (congestive) heart failure Code(s): I50.30 - Unspecified diastolic (congestive) heart failure Status: Acute Assessment and Plan: Monitor BNP 88637 on admission Monitor daily weight admit weight 144.6 kg weight today 141.7 Monitor I&O Monitor clinical response Lasix 40 mg IV BID (3) Suspected sleep apnea: Code(s): R29.818 - Other symptoms and signs involving the nervous system Status: Acute Assessment and Plan: Monitor oxygen saturation Refer to PCP for possible sleep study as an outpatient (4) Chronic respiratory failure with hypoxia, on home oxygen therapy: Code(s): J96.11 - Chronic respiratory failure with hypoxia; Z99.81 - Dependence on supplemental oxygen Status: Acute Assessment and Plan: Prednisone 40 mg qd Continue umeclidinium Duoneb q 6 hrs Continue home oxygen Monitor vital signs (5) Hypertension: Qualifiers: Hypertension type: unspecified Qualified Code(s): I10 - Essential (primary) hypertension Code(s): I10 - Essential (primary) hypertension Status: Chronic Assessment and Plan: Continue home medications Monitor vital signs (6) Hypothyroid: Qualifiers: Hypothyroidism type: unspecified Qualified Code(s): E03.9 - Hypothyroidism, unspecified Code(s): E03.9 - Hypothyroidism, unspecified Status: Acute Assessment and Plan: Continue home medications (7) Chronic anemia: Code(s): D64.9 - Anemia, unspecified Status: Chronic Assessment and Plan: Monitor CBC Continue ferrous sulfate (8) Paroxysmal atrial fibrillation: Code(s): I48.0 - Paroxysmal atrial fibrillation Status: Acute Assessment and Plan: Continue Eliquis Continue cardizem Monitor telemetry (9) Chronic anticoagulation: Code(s): Z79.01 - assisted (current) use of anticoagulants Status: Acute Assessment and Plan: Continue Eliquis (10) Chronic kidney disease, stage 3: Qualifiers: Chronic kidney disease stage 3 subtype: stage 3b (GFR 30-44) Qualified Code(s): N18.32 - Chronic kidney disease, stage 3b Code(s): N18.30 - Chronic kidney disease, stage 3 unspecified Status: Chronic Assessment and Plan: Avoid nephrotoxic medications Monitor lab work BUN today 32 and creatinine 1.6 Time Spent With Patient Time with patient: 15 - 25 minutes Subjective Date/time seen: 04/28/24 [id number] Review of Systems Review of Systems: All systems reviewed & are unremarkable except as noted in HPI and below Constitutional: Constitutional: Reports as per HPI Comments: Pt states he is feeling pretty good today and denies any complaints Musculoskeletal: Comments: H/o cauda equina many years ago and has feeling and movement in his lower extremities but is not able to walk. Exam Narrative: Pt is in fowlers position upon entering the room. A/Ox4 and appears in no acute distress. Pleasant and jovial affect. Telling me about his and daughter going on a two week trip to [place] and the places they have seen. Const: General: comfortable and no acute distress HENMT: Face/Nose/Sinus: Normal nares present Mouth: Yes moist mucous membranes Eyes: General: appearance normal, both eyes and all related structure
[2024-04-28] MEDS: MONTELUKAST SODIUM 10 MG TABLET PO (20:13)
[2024-04-28] MEDS: ATORVASTATIN 10 MG TABLET PO (20:14)
[2024-04-28] MEDS: MELATONIN 5 MG TABLET PO (20:14)
[2024-04-29] VITALS (13 sets, daily range): BP systolic 125–131; BP diastolic 49–58; PULSE 65–80; RESP 18–20; TEMP 36.2–36.8; O2SAT 92–96
[2024-04-29] MEDS: dilTIAZem HCL 30 MG TABLET PO ×3 (05:51→21:10)
[2024-04-29] MEDS: LEVOTHYROXINE SODIUM 25 MCG TABLET PO (05:51)
[2024-04-29] MEDS: UMECLIDINIUM/VILANTEROL 62.5-25 MCG ELLIPTA 1 PUFF INHALATION (07:13)
[2024-04-29] MEDS: IPRATROPIUM 0.5 MG/ALBUTEROL SULFATE 2.5 MG AMPUL.NEB 3 ML INHALATION ×3 (07:14→20:18)
[2024-04-29 08:05] LABS: Basophils Percent Auto 0.1 % (0.2-1.2); Eosinophils Percent Auto 0.1 % (0-4.4); Hematocrit 27.5 % (42.0-52.0); Hemoglobin 8.8 g/dL (14.0-18.0); Immature Granulocyte Absolute 0.05 K/mm3 (0.00-0.031); Immature Granulocyte Percent A 0.5 % (0-0.5); Lymphocytes Absolute Auto 0.86 K/mm3 (0.9-3.2); Lymphocytes Percent Auto 9.1 % (18.3-44.2); Mean Corpuscular Hemoglobin 28.7 pg (26-34); Mean Corpuscular Volume 89.6 fl (80-100); Mean Platelet Volume 10.3 fl (7.4-10.4); Monocytes Absolute Auto 0.7 K/mm3 (0.1-0.6); Monocytes Percent Auto 7.7 % (2.6-8.5); Neutrophils Absolute Auto 7.8 K/mm3 (1.3-6.7); Neutrophils Percent Auto 82.5 % (45.5-73.1); Platelet Count Result 193 k/mm3 (150-375); Red Blood Count 3.07 M/mm3 (4.6-6.20); Red Cell Distribution Width 14.6 % (11.5-14.5); White Blood Count 9.4 K/mm3 (4.5-10.0)
[2024-04-29] MEDS: BRIMONIDINE TARTRATE 0.1% 5 ML OPHTH DROPS 1 DROP EACH EYE ×4 (08:14→21:09)
[2024-04-29] MEDS: KETOROLAC 0.5% OP SOLN 5 ML BOTTLE 1 DROP EACH EYE ×4 (08:15→21:09)
[2024-04-29] MEDS: prednisoLONE ACETATE 1% OPHTH 5 ML 1 DROP EACH EYE ×3 (08:15→17:15)
[2024-04-29] MEDS: OFLOXACIN 0.3% OPHTH SOLN 5 ML BTL 1 DROP RIGHT EYE ×3 (08:15→17:15)
[2024-04-29] MEDS: FLUTICASONE PROPIONATE 0.05% NA SPR 16 GM BTL (*BKC) 2 SPRAY NASAL (08:16)
[2024-04-29] MEDS: TIZANIDINE HCL 4 MG TABLET PO (08:17)
[2024-04-29] MEDS: BACLOFEN 10 MG TABLET PO ×4 (08:17→21:08)
[2024-04-29] MEDS: GABAPENTIN 100 MG CAPSULE 200 MG PO (08:17)
[2024-04-29] MEDS: CYANOCOBALAMIN 1,000 MCG TABLET 1000 MCG PO (08:17)
[2024-04-29] MEDS: APIXABAN 5 MG TABLET PO ×2 (08:17→21:08)
[2024-04-29] MEDS: CALCIUM CARBONATE (TUMS) 500 MG (200 MG ELEMENTAL) PO ×3 (08:17→17:14)
[2024-04-29] MEDS: CHOLECALCIFEROL 1,000 UNITS TABLET 1000 UNITS PO (08:18)
[2024-04-29] MEDS: predniSONE 20 MG TABLET 40 MG PO (08:19)
[2024-04-29] MEDS: ASCORBIC ACID 500 MG TABLET PO (08:19)
[2024-04-29] MEDS: MULTIVITAMINS THERAPEUTIC TAB (*BKC) 1 TABLET PO (08:19)
[2024-04-29] MEDS: PANTOPRAZOLE 40 MG TABLET PO (08:19)
[2024-04-29] MEDS: FUROSEMIDE INJ 40 MG/4 ML VIAL IV PUSH ×2 (08:20→21:09)
[2024-04-29] MEDS: FERROUS SULFATE 325 MG TABLET DR PO ×2 (08:20→17:14)
[2024-04-29 08:40] LABS: Anion Gap 8 mmol/L (4-12); Blood Urea Nitrogen 39 mg/dL (9-20); Calcium 8.2 mg/dL (8.4-10.2); Carbon Dioxide 32 mmol/L (22-30); Chloride 92 mmol/L (98-107); Estimated CRCL calculation 55 ml/min; Estimated Glomerular Filt Rate 42; Glucose 108 mg/dL (65-110); Potassium 4.9 mmol/L (3.4-5.0); Sodium 132 mmol/L (137-145)
--- NOTE | 2024-04-29 16:29 | PM.IMPN ---
Progress Note: A&P Assessment and Plan (1) Chronic obstructive pulmonary disease: Qualifiers: COPD type: unspecified COPD Qualified Code(s): J44.9 - Chronic obstructive pulmonary disease, unspecified Code(s): J44.9 - Chronic obstructive pulmonary disease, unspecified Status: Acute Assessment and Plan: Prednisone 40 mg oral daily Continue oxygen with titration as needed Duoneb q 6 hrs Continue montelukast Continue Umeclidinium (2) Heart failure with preserved ejection fraction: Qualifiers: Heart failure chronicity: unspecified Qualified Code(s): I50.30 - Unspecified diastolic (congestive) heart failure Code(s): I50.30 - Unspecified diastolic (congestive) heart failure Status: Acute Assessment and Plan: Monitor BNP 14779 on admission Monitor daily weight admit weight 144.6 kg weight today 142.6 Monitor I&O Monitor clinical response Lasix 40 mg IV BID (3) Suspected sleep apnea: Code(s): R29.818 - Other symptoms and signs involving the nervous system Status: Acute Assessment and Plan: Monitor oxygen saturation Refer to PCP for possible sleep study as an outpatient (4) Chronic respiratory failure with hypoxia, on home oxygen therapy: Code(s): J96.11 - Chronic respiratory failure with hypoxia; Z99.81 - Dependence on supplemental oxygen Status: Acute Assessment and Plan: Prednisone 40 mg qd Continue umeclidinium Duoneb q 6 hrs Continue home oxygen Monitor vital signs (5) Hypertension: Qualifiers: Hypertension type: unspecified Qualified Code(s): I10 - Essential (primary) hypertension Code(s): I10 - Essential (primary) hypertension Status: Chronic Assessment and Plan: Continue home medications Monitor vital signs (6) Hypothyroid: Qualifiers: Hypothyroidism type: unspecified Qualified Code(s): E03.9 - Hypothyroidism, unspecified Code(s): E03.9 - Hypothyroidism, unspecified Status: Acute Assessment and Plan: Continue home medications (7) Chronic anemia: Code(s): D64.9 - Anemia, unspecified Status: Chronic Assessment and Plan: Monitor CBC Continue ferrous sulfate (8) Paroxysmal atrial fibrillation: Code(s): I48.0 - Paroxysmal atrial fibrillation Status: Acute Assessment and Plan: Continue Eliquis Continue cardizem Monitor telemetry (9) Chronic anticoagulation: Code(s): 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 States his breathing has improved, but he is still swollen as evidenced by his watch being tight. Still having a loose nonproductive cough at times and wheezing. Review of Systems Review of Systems: All systems reviewed & are unremarkable except as noted in HPI and below Constitutional: Constitutional: Reports as per HPI and Reports no additional constitutional complaints Respiratory: Respiratory: Reports cough and Reports dyspnea Exam Narrative: Pt is alert and oriented x 4. Pleasant and jovial affect noted. Const: General: comfortable and no acute distress HENMT: Face/Nose/Sinus: Normal nares present Mouth: Yes moist mucous membranes Eyes: General: appearance normal, both eyes and all related structures Sclera: sclerae normal Pupils:
[2024-04-29] MEDS: polyethylene glycoL 3350 17 GM POWD.PACK PO (17:19)
[2024-04-29] MEDS: ATORVASTATIN 10 MG TABLET PO (21:08)
[2024-04-29] MEDS: MONTELUKAST SODIUM 10 MG TABLET PO (21:08)
[2024-04-29] MEDS: MELATONIN 5 MG TABLET PO (21:10)
[2024-04-30] VITALS (12 sets, daily range): BP systolic 132–137; BP diastolic 47–60; PULSE 66–83; RESP 12–20; TEMP 36.6–36.8; O2SAT 92–98
[2024-04-30 05:36] LABS: Hematocrit 27.1 % (42.0-52.0); Hemoglobin 8.7 g/dL (14.0-18.0); Immature Granulocyte Absolute 0.04 K/mm3 (0.00-0.031); Immature Granulocyte Percent A 0.5 % (0-0.5); Lymphocytes Absolute Auto 0.84 K/mm3 (0.9-3.2); Lymphocytes Percent Auto 9.5 % (18.3-44.2); Mean Corpuscular HGB Conc 32.1 g/dl (32-36); Mean Corpuscular Hemoglobin 28.1 pg (26-34); Mean Corpuscular Volume 87.4 fl (80-100); Mean Platelet Volume 9.7 fl (7.4-10.4); Monocytes Absolute Auto 0.7 K/mm3 (0.1-0.6); Monocytes Percent Auto 7.6 % (2.6-8.5); Neutrophils Absolute Auto 7.3 K/mm3 (1.3-6.7); Neutrophils Percent Auto 82.4 % (45.5-73.1); Platelet Count Result 168 k/mm3 (150-375); Red Cell Distribution Width 14.5 % (11.5-14.5); White Blood Count 8.8 K/mm3 (4.5-10.0)
[2024-04-30 05:47] LABS: Anion Gap 8 mmol/L (4-12); Blood Urea Nitrogen 41 mg/dL (9-20); Calcium 8.2 mg/dL (8.4-10.2); Carbon Dioxide 35 mmol/L (22-30); Chloride 88 mmol/L (98-107); Estimated CRCL calculation 49 ml/min; Estimated Glomerular Filt Rate 37; Glucose 106 mg/dL (65-110); Potassium 4.1 mmol/L (3.4-5.0); Sodium 131 mmol/L (137-145)
[2024-04-30 05:53] LABS: NT Pro B Type Natriuretic Pept 16400 pg/mL (19.9-100)
[2024-04-30] MEDS: LEVOTHYROXINE SODIUM 25 MCG TABLET PO (06:44)
[2024-04-30] MEDS: dilTIAZem HCL 30 MG TABLET PO ×3 (06:44→21:24)
[2024-04-30] MEDS: IPRATROPIUM 0.5 MG/ALBUTEROL SULFATE 2.5 MG AMPUL.NEB 3 ML INHALATION ×3 (07:31→21:15)
[2024-04-30] MEDS: UMECLIDINIUM/VILANTEROL 62.5-25 MCG ELLIPTA 1 PUFF INHALATION (07:38)
[2024-04-30] MEDS: CALCIUM CARBONATE (TUMS) 500 MG (200 MG ELEMENTAL) PO ×3 (08:26→16:38)
[2024-04-30] MEDS: predniSONE 20 MG TABLET 40 MG PO (08:26)
[2024-04-30] MEDS: TIZANIDINE HCL 4 MG TABLET PO (08:27)
[2024-04-30] MEDS: BACLOFEN 10 MG TABLET PO ×4 (08:27→21:14)
[2024-04-30] MEDS: FERROUS SULFATE 325 MG TABLET DR PO ×2 (08:27→16:37)
[2024-04-30] MEDS: CYANOCOBALAMIN 1,000 MCG TABLET 1000 MCG PO (08:27)
[2024-04-30] MEDS: GABAPENTIN 100 MG CAPSULE 200 MG PO (08:27)
[2024-04-30] MEDS: CHOLECALCIFEROL 1,000 UNITS TABLET 1000 UNITS PO (08:28)
[2024-04-30] MEDS: MULTIVITAMINS THERAPEUTIC TAB (*BKC) 1 TABLET PO (08:28)
[2024-04-30] MEDS: FLUTICASONE PROPIONATE 0.05% NA SPR 16 GM BTL (*BKC) 2 SPRAY NASAL (08:28)
[2024-04-30] MEDS: PANTOPRAZOLE 40 MG TABLET PO (08:28)
[2024-04-30] MEDS: APIXABAN 5 MG TABLET PO ×2 (08:28→21:14)
[2024-04-30] MEDS: ASCORBIC ACID 500 MG TABLET PO (08:28)
[2024-04-30] MEDS: FUROSEMIDE INJ 40 MG/4 ML VIAL IV PUSH (08:28)
[2024-04-30] MEDS: OFLOXACIN 0.3% OPHTH SOLN 5 ML BTL 1 DROP RIGHT EYE ×3 (08:29→16:39)
[2024-04-30] MEDS: prednisoLONE ACETATE 1% OPHTH 5 ML 1 DROP EACH EYE ×3 (08:29→16:39)
[2024-04-30] MEDS: BRIMONIDINE TARTRATE 0.1% 5 ML OPHTH DROPS 1 DROP EACH EYE ×4 (08:30→21:15)
[2024-04-30] MEDS: KETOROLAC 0.5% OP SOLN 5 ML BOTTLE 1 DROP EACH EYE ×4 (08:30→21:15)
--- NOTE | 2024-04-30 10:05 | PM.IMPN ---
Progress Note: A&P Assessment and Plan (1) Chronic obstructive pulmonary disease: Qualifiers: COPD type: unspecified COPD Qualified Code(s): J44.9 - Chronic obstructive pulmonary disease, unspecified Code(s): J44.9 - Chronic obstructive pulmonary disease, unspecified Status: Acute Assessment and Plan: Prednisone 40 mg oral daily Continue oxygen with titration as needed Duoneb q 6 hrs Continue montelukast Continue Umeclidinium (2) Heart failure with preserved ejection fraction: Qualifiers: Heart failure chronicity: unspecified Qualified Code(s): I50.30 - Unspecified diastolic (congestive) heart failure Code(s): I50.30 - Unspecified diastolic (congestive) heart failure Status: Acute Assessment and Plan: 04/30 with over 1400 mL diuresis overnight and creatinine increased to 1.8 04/30 therefore decrease furosemide and monitor renal panel (3) Suspected sleep apnea: Code(s): R29.818 - Other symptoms and signs involving the nervous system Status: Acute Assessment and Plan: Monitor oxygen saturation Apnea link ordered (4) Chronic respiratory failure with hypoxia, on home oxygen therapy: Code(s): J96.11 - Chronic respiratory failure with hypoxia; Z99.81 - Dependence on supplemental oxygen Status: Acute Assessment and Plan: Prednisone 40 mg qd Continue umeclidinium Duoneb q 6 hrs Continue home oxygen Clinically near baseline (5) Hypertension: Qualifiers: Hypertension type: unspecified Qualified Code(s): I10 - Essential (primary) hypertension Code(s): I10 - Essential (primary) hypertension Status: Chronic Assessment and Plan: 04/30 reviewed and controlled (6) Hypothyroid: Qualifiers: Hypothyroidism type: unspecified Qualified Code(s): E03.9 - Hypothyroidism, unspecified Code(s): E03.9 - Hypothyroidism, unspecified Status: Acute Assessment and Plan: Continue levothyroxine (7) Chronic anemia: Code(s): D64.9 - Anemia, unspecified Status: Chronic Assessment and Plan: Likely related to chronic kidney disease as it is stable normochromic and normocytic (8) Paroxysmal atrial fibrillation: Code(s): I48.0 - Paroxysmal atrial fibrillation Status: Acute Assessment and Plan: Continue Eliquis Continue cardizem 04/30 discontinue telemetry (9) Chronic kidney disease, stage 3: Qualifiers: Chronic kidney disease stage 3 subtype: stage 3b (GFR 30-44) Qualified Code(s): N18.32 - Chronic kidney disease, stage 3b Code(s): N18.30 - Chronic kidney disease, stage 3 unspecified Status: Chronic Assessment and Plan: Creatinine at admission 1.6 04/30 creatinine 1.8 Subjective Date/time seen: 04/30/24 10:05 Interval history: 73-year-old resident of [facility] is on 3 L of oxygen chronically and uses a motorized wheelchair. He requires assistance to transfer from bed to wheelchair. He has a colostomy due to previous diverticulitis and a Pereira catheter due to urinary retention. The Pereira catheter is chronic. He was admitted 04/27 for shortness of breath and found to have cardiomegaly and pulmonary vascular congestion on chest x-ray. He was also wheezing. Urine culture grew Proteus sensitive to ceftriaxone. Currently he is tolerating his diet and states shortness of breath is very near baseline. He denied pain. Review of Systems Review of Systems: All systems reviewed & are unremarkable except as noted in HPI and below Exam Narrative: HEENT: PERRL, sclerae nonicteric, pharyngeal mucosa pink and intact NECK: No JVD, adenopathy, or thyromegaly CHEST: Mildly tachypneic. Diffuse inspiratory and expiratory wheezes with increased AP diameter. No audible crackles. HEART: NL S1/S2, regular, no murmur ABDOMEN: BS+, soft, nontender, no mass, no bruits EXTREMITIES: No cyanosis, edema, or clubb
[2024-04-30] MEDS: MONTELUKAST SODIUM 10 MG TABLET PO (21:14)
[2024-04-30] MEDS: ATORVASTATIN 10 MG TABLET PO (21:14)
[2024-04-30] MEDS: MELATONIN 5 MG TABLET PO (21:14)
[2024-04-30] MEDS: FUROSEMIDE INJ 40 MG/4 ML VIAL 20 MG IV PUSH (21:15)
--- NOTE | 2024-04-30 22:13 | PCRCNOTE ---
Pt refused Apnea link again. Pt stated he just doesn't want to do it. Rn notified.
[2024-05-01] VITALS (7 sets, daily range): BP systolic 131–139; BP diastolic 56–57; PULSE 69–76; RESP 16–20; TEMP 36.5–36.8; O2SAT 93–94
[2024-05-01 05:53] LABS: Basophils Percent Auto 0.1 % (0.2-1.2); Eosinophils Percent Auto 0.2 % (0-4.4); Hematocrit 26.9 % (42.0-52.0); Hemoglobin 8.7 g/dL (14.0-18.0); Immature Granulocyte Absolute 0.06 K/mm3 (0.00-0.031); Immature Granulocyte Percent A 0.6 % (0-0.5); Lymphocytes Absolute Auto 1.26 K/mm3 (0.9-3.2); Lymphocytes Percent Auto 11.9 % (18.3-44.2); Mean Corpuscular HGB Conc 32.3 g/dl (32-36); Mean Corpuscular Hemoglobin 28.2 pg (26-34); Mean Corpuscular Volume 87.3 fl (80-100); Mean Platelet Volume 9.1 fl (7.4-10.4); Monocytes Percent Auto 8.9 % (2.6-8.5); Neutrophils Absolute Auto 8.3 K/mm3 (1.3-6.7); Neutrophils Percent Auto 78.3 % (45.5-73.1); Platelet Count Result 167 k/mm3 (150-375); Red Blood Count 3.08 M/mm3 (4.6-6.20); Red Cell Distribution Width 14.5 % (11.5-14.5); White Blood Count 10.6 K/mm3 (4.5-10.0)
[2024-05-01 06:07] LABS: Anion Gap 5 mmol/L (4-12); Blood Urea Nitrogen 43 mg/dL (9-20); Calcium 8.2 mg/dL (8.4-10.2); Carbon Dioxide 39 mmol/L (22-30); Chloride 88 mmol/L (98-107); Estimated CRCL calculation 44 ml/min; Estimated Glomerular Filt Rate 33; Glucose 103 mg/dL (65-110); Potassium 4.5 mmol/L (3.4-5.0); Sodium 132 mmol/L (137-145)
[2024-05-01] MEDS: dilTIAZem HCL 30 MG TABLET PO ×2 (06:27→13:12)
[2024-05-01] MEDS: LEVOTHYROXINE SODIUM 25 MCG TABLET PO (06:27)
[2024-05-01] MEDS: IPRATROPIUM 0.5 MG/ALBUTEROL SULFATE 2.5 MG AMPUL.NEB 3 ML INHALATION ×2 (07:19→13:00)
[2024-05-01] MEDS: UMECLIDINIUM/VILANTEROL 62.5-25 MCG ELLIPTA 1 PUFF INHALATION (07:19)
[2024-05-01] MEDS: OFLOXACIN 0.3% OPHTH SOLN 5 ML BTL 1 DROP RIGHT EYE ×3 (09:11→17:28)
[2024-05-01] MEDS: predniSONE 20 MG TABLET 40 MG PO (09:11)
[2024-05-01] MEDS: ASCORBIC ACID 500 MG TABLET PO (09:11)
[2024-05-01] MEDS: APIXABAN 5 MG TABLET PO (09:11)
[2024-05-01] MEDS: GABAPENTIN 100 MG CAPSULE 200 MG PO (09:12)
[2024-05-01] MEDS: FLUTICASONE PROPIONATE 0.05% NA SPR 16 GM BTL (*BKC) 2 SPRAY NASAL (09:12)
[2024-05-01] MEDS: BACLOFEN 10 MG TABLET PO ×3 (09:12→17:28)
[2024-05-01] MEDS: FUROSEMIDE 40 MG TABLET PO (09:12)
[2024-05-01] MEDS: CALCIUM CARBONATE (TUMS) 500 MG (200 MG ELEMENTAL) PO ×3 (09:13→17:28)
[2024-05-01] MEDS: PANTOPRAZOLE 40 MG TABLET PO (09:13)
[2024-05-01] MEDS: CYANOCOBALAMIN 1,000 MCG TABLET 1000 MCG PO (09:13)
[2024-05-01] MEDS: CHOLECALCIFEROL 1,000 UNITS TABLET 1000 UNITS PO (09:13)
[2024-05-01] MEDS: TIZANIDINE HCL 4 MG TABLET PO (09:13)
[2024-05-01] MEDS: FERROUS SULFATE 325 MG TABLET DR PO ×2 (09:13→17:27)
[2024-05-01] MEDS: KETOROLAC 0.5% OP SOLN 5 ML BOTTLE 1 DROP EACH EYE ×3 (09:14→17:29)
[2024-05-01] MEDS: prednisoLONE ACETATE 1% OPHTH 5 ML 1 DROP EACH EYE ×3 (09:16→17:29)
[2024-05-01] MEDS: MULTIVITAMINS THERAPEUTIC TAB (*BKC) 1 TABLET PO (09:16)
[2024-05-01] MEDS: BRIMONIDINE TARTRATE 0.1% 5 ML OPHTH DROPS 1 DROP EACH EYE ×3 (09:16→17:29)
--- NOTE | 2024-05-01 10:07 | PM.DS ---
DS: Admitting Diagnosis Discharge Date 05/01/2024 Admitting Diagnosis CHF, UTI DS: Discharge Diagnosis Discharge Diagnosis (1) Chronic obstructive pulmonary disease: Qualifiers: COPD type: unspecified COPD Qualified Code(s): J44.9 - Chronic obstructive pulmonary disease, unspecified Code(s): J44.9 - Chronic obstructive pulmonary disease, unspecified Status: Acute Assessment and Plan: Prednisone 40 mg oral daily Continue oxygen with titration as needed Duoneb q 6 hrs while hospitalized Continue montelukast Continue Umeclidinium (2) Heart failure with preserved ejection fraction: Qualifiers: Heart failure chronicity: unspecified Qualified Code(s): I50.30 - Unspecified diastolic (congestive) heart failure Code(s): I50.30 - Unspecified diastolic (congestive) heart failure Status: Acute Assessment and Plan: 04/30 with over 1400 mL diuresis overnight and creatinine increased to 1.8 04/30 therefore decrease furosemide and monitor renal panel 05/01 creatinine 2.0, so switched back to home furosemide dose of 40 mg po daily (3) Suspected sleep apnea: Code(s): R29.818 - Other symptoms and signs involving the nervous system Status: Acute Assessment and Plan: Monitor oxygen saturation Apnea link ordered 05/01 (4) Chronic respiratory failure with hypoxia, on home oxygen therapy: Code(s): J96.11 - Chronic respiratory failure with hypoxia; Z99.81 - Dependence on supplemental oxygen Status: Acute Assessment and Plan: Prednisone 40 mg qd Continue umeclidinium Duoneb q 6 hrs while hospitalized Continue home oxygen Clinically at baseline (5) Hypertension: Qualifiers: Hypertension type: unspecified Qualified Code(s): I10 - Essential (primary) hypertension Code(s): I10 - Essential (primary) hypertension Status: Chronic Assessment and Plan: 05/01 reviewed and controlled (6) Hypothyroid: Qualifiers: Hypothyroidism type: unspecified Qualified Code(s): E03.9 - Hypothyroidism, unspecified Code(s): E03.9 - Hypothyroidism, unspecified Status: Acute Assessment and Plan: Continue levothyroxine (7) Chronic anemia: Code(s): D64.9 - Anemia, unspecified Status: Chronic Assessment and Plan: Likely related to chronic kidney disease as it is stable normochromic and normocytic (8) Paroxysmal atrial fibrillation: Code(s): I48.0 - Paroxysmal atrial fibrillation Status: Acute Assessment and Plan: Continue Eliquis Continue cardizem (9) Chronic kidney disease, stage 3: Qualifiers: Chronic kidney disease stage 3 subtype: stage 3b (GFR 30-44) Qualified Code(s): N18.32 - Chronic kidney disease, stage 3b Code(s): N18.30 - Chronic kidney disease, stage 3 unspecified Status: Chronic Assessment and Plan: Creatinine at admission 1.6 04/30 creatinine 1.8, 05/01 2.0 DS: Summary Hospital Course Reason for hospitalization: Dyspnea Hospital Course: 73[facility] who [facility]ically oxygen dependent [facility] is [id number] bound at baseline and requires assistance getting out of bed. He requires assistance for all ADLs including set up for feedings. He was admitted April 27 due to increasing shortness of breath. Chest x-ray showed pulmonary vascular congestion consistent with mild pulmonary edema. Urinalysis was abnormal. He has chronic urinary retention and a chronic Pereira catheter as well as a colostomy after diverticulitis surgery. He diuresed well with IV furosemide creatinine increased a bit to 1.8 and 2.0. He was switched back to his baseline furosemide 40 mg daily. Proteus in his urine was sensitive to Augmentin and resistant to the ceftriaxone that he had been started on initially. On day of discharge she was switched to p.o. Augmentin to complete a 7 day course. He was
[2024-05-01] MEDS: AMOXICILLIN/CLAVULANATE K 500-125 MG TAB 1 TABLET PO (10:41)
[2024-05-01 11:35] LABS: SARS-CoV-2 RNA PCR Negative (Negative)
--- NOTE | 2024-05-01 13:15 | PC.NURSE ---
Patient refused discharge flu shot. Patient states they would like to receive at facility like they do every year.
== END 2024-05-01 18:40 | DRG 291 ==
LOC: ANHED 07:41 → ANH2MED 09:54
PROVIDERS: Nurse Practitioner Family; Physician Assistant; Admitting Provider General Practice; Emergency Provider Emergency Medicine; PCP Hospitalist; Visit Provider Internal Medicine
DX: I13.0 Hypertensive heart and chronic kidney disease with heart failure and stage 1 through stage 4 chronic kidney disease, or unspecified chronic kidney disease (principal); I50.31 Acute diastolic (congestive) heart failure; J44.1 Chronic obstructive pulmonary disease with (acute) exacerbation; J96.11 Chronic respiratory failure with hypoxia; E03.9 Hypothyroidism, unspecified; N18.32 Chronic kidney disease, stage 3b; D63.1 Anemia in chronic kidney disease; I48.0 Paroxysmal atrial fibrillation; K21.9 Gastro-esophageal reflux disease without esophagitis; R29.818 Other symptoms and signs involving the nervous system; R33.9 Retention of urine, unspecified; Z20.822 Contact with and (suspected) exposure to COVID-19; Z99.81 Dependence on supplemental oxygen; Z74.01 Bed confinement status; Z99.3 Dependence on wheelchair; Z79.01 Long term (current) use of anticoagulants; Z90.49 Acquired absence of other specified parts of digestive tract; Z89.412 Acquired absence of left great toe; Z87.891 Personal history of nicotine dependence
CPT/HCPCS: 36415; 71045; 80048; 80053; 81001; 83605; 83735; 83880; 84132; 84145; 84439; 84443; 84480; 85025; 85027; 85610; 85730; 86140; 87086; 87186; 87635; 87637; 93970; 94640; 96374; 96375; 96376; 99285; A9270; G0378; J0696; J1940; J2919; J7512

== ENCOUNTER 2024-05-11 12:53 | Outpatient (CLI) | payer MEDICARE, BC, MEDICAID, SELFPAY | END 2024-05-11 12:54 | disposition home or self-care (01) | PROVIDERS: PCP Hospitalist; Visit Provider Otolaryngology | DX: J31.0 Chronic rhinitis (principal); H61.21 Impacted cerumen, right ear; H90.3 Sensorineural hearing loss, bilateral | CPT/HCPCS: 92557; 92567 ==

== ENCOUNTER 2025-01-13 15:36 | Inpatient (IN) | payer MEDICARE, BC, MEDICAID, SELFPAY ==
--- NOTE | ~2025-01-13 | CT_ITS ---
EXAMINATION: CT brain wo con DATE: 01/17/2025 12:45 INDICATION: Lightheadedness TECHNIQUE: Computed tomography (CT) of the head was performed without intravenous contrast. Sagittal and coronal reconstructions were performed. The mA was adjusted according to patient size. Iterative reconstruction technique was employed. The dose-length product was 605.33 mGy-cm. COMPARISON: head CT dated 01/13/2025 FINDINGS: No acute intracranial hemorrhage, acute infarction or abnormal extra axial fluid collection. There is mild scattered white matter hypoattenuation consistent with chronic small vessel ischemic disease. S ymmetric prominence of the sulci consistent with mild age-appropriate diffuse cerebral volume loss. V entricles are normal and symmetric. No mass/mass effect. Changes of bilateral intraocular lens replac ement. The orbits and mastoid air cells are normal. Small mucous retention cyst in the right maxillar y sinus. Intracranial calcified cerebral atherosclerosis is noted. IMPRESSION: 1. Normal aging brain. No acute intracranial process. Reviewed, dictated and finalized at location B.
--- NOTE | ~2025-01-13 | CT_ITS ---
CT brain wo con Ordering provider: Lois Crandall APRN History: 74 years Male with . altered mental status . Comparison: March 10, 2023 Technique: CT of the head without contrast. Radiation reduction technique utilized.The dose-length pr oduct was 605.33 mGy-cm. FINDINGS: BRAIN PARENCHYMA AND CSF SPACES: Mild leukoaraiosis and diffuse cortical atrophy. Mild atheromatous d isease. No midline shift, mass effect or hemorrhage. The brain parenchyma and CSF spaces are otherwi se normal. VISUALIZED PARANASAL SINUSES: Well aerated. MASTOIDS: Well aerated. BONES: The bones appear intact. SOFT TISSUES: Visualized nasopharynx is normal. Superficial soft tissues are normal. IMPRESSION: No acute intracranial findings. Reviewed, dictated and finalized at location A.
--- NOTE | ~2025-01-13 | XR_ITS ---
CHEST RADIOGRAPH CLINICAL HISTORY: ams . COMPARISON: 04/27/2024 TECHNIQUE: Single portable view of the chest. FINDINGS The cardiomediastinal silhouette is unremarkable. The lungs are clear. IMPRESSION: No focal infiltrate or effusion. Reviewed, dictated and finalized at location A.
[2025-01-13 16:31] VITALS: BP 145/96; PULSE 88; RESP 19; TEMP 36.8; O2SAT 99
--- NOTE | 2025-01-13 16:35 | ECG_ITS ---
Test Date: 2025-01-13 19:48:47 Measurements Intervals [place] Rate: 95 P: 83 [place]: 159 QRS: -6 QRSD: 107 T: 55 QT: 331 QTc: 418 Interpretive Statements SINUS RHYTHM DELAYED PRECORDIAL R/S TRANSITION CONSIDER INFERIOR INFARCT, AGE INDETERMINATE BORDERLINE ST-T WAVE ABNORMALITY- HIGH LATERAL LEADS BASELINE WANDER- II, III ABNORMAL ECG Compared to ECG 01/29/2024 17:54:30 NO SIGNIFICANT CHANGE Electronically Signed On 01-14-2025 07:12:57 CDT by Wang Bhagat D.O.
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
--- NOTE | 2025-01-13 19:00 | PC.NURSE ---
Pt. called for blood draw x1. Pt. at imaging.
[2025-01-13 19:58] VITALS: BP 147/69; PULSE 90; RESP 18; O2SAT 97
[2025-01-13 20:10] LABS: Hematocrit 31.7 % (42.0-52.0); Hemoglobin 10.3 g/dL (14.0-18.0); Immature Granulocyte Percent A 0.5 % (0-0.5); Lymphocytes Absolute Auto 1.61 K/mm3 (0.9-3.2); Mean Corpuscular HGB Conc 32.5 g/dl (32-36); Mean Corpuscular Hemoglobin 27.2 pg (26-34); Mean Corpuscular Volume 83.6 fl (80-100); Nucleated Red Blood Cells Absolute Auto 0.000 K/mm3 (0.0-0.012); Nucleated Red Blood Cells Perc 0.0 % (0.0-0.2); Platelet Count Result 264 k/mm3 (150-375); Red Blood Count 3.79 M/mm3 (4.6-6.20); White Blood Count 14.6 K/mm3 (4.5-10.0)
[2025-01-13 20:20] LABS: Alanine Aminotransferase 20 U/L (6-50); Albumin Level 4.1 g/dL (3.5-5.1); Alkaline Phosphatase 187 U/L (38-126); Anion Gap 15 mmol/L (4-12); Aspartate Amino Transferase 21 U/L (17-59); Bilirubin,Total 0.8 mg/dL (0.2-1.3); Blood Urea Nitrogen 41 mg/dL (9-20); Calcium 9.3 mg/dL (8.4-10.2); Carbon Dioxide 15 mmol/L (22-30); Chloride 106 mmol/L (98-107); Estimated CRCL calculation 45 ml/min; Estimated Glomerular Filt Rate 35; Glucose 108 mg/dL (65-110); Potassium 4.9 mmol/L (3.4-5.0); Sodium 136 mmol/L (137-145); Total Protein 8.7 g/dL (6.3-8.2)
[2025-01-13 20:22] LABS: INR 1.3; Partial Thromboplastin Time 34.8 Seconds (22.3-36.8); Prothrombin Time 16.2 Seconds (11.1-14.7)
--- NOTE | 2025-01-13 21:03 | PC.NURSE ---
Pt cowan cath changed, and new colostomy bag changed.
[2025-01-13] MEDS: LACTATED RINGERS 1,000 ML 999 ML IV CONT (21:10)
[2025-01-13 21:39] LABS: Add Urine Microscopic? YES; Appearance Urine Cloudy (Clear); Glucose Urine UA Negative (Negative); Leukocyte Esterase Ur 2+ LEU/UL (Negative); Need Manual Microscopic Reviewed; Nitrate Urine Negative (Negative); Specific Grav Ur 1.016 (1.001-1.035)
[2025-01-13 22:58] LABS: Fractional Inspired Oxygen 21 %; HCO3 VBG 15.5 mEq/l (24.0-30.0); PCO2 VBG 33.8 mmHg (42.0-48.0); PO2 VBG 59.5 mmHg (35.0-45.0); pH VBG 7.278 (7.300-7.400)
[2025-01-13 22:59] LABS: Liters per Minute 0.0 LPM
--- NOTE | 2025-01-13 22:59 | PCRCNOTE ---
Delay in processing VBG due to difficult stick per nursing staff.
[2025-01-13] MEDS: CEFEPIME 1 GM/NS 50 ML 1 GM/50 ML BAG IVPB (23:15)
[2025-01-14] VITALS (7 sets, daily range): BP systolic 120–157; BP diastolic 48–84; PULSE 75–87; RESP 16–20; TEMP 36.1–36.4; O2SAT 95–99; BMI 38.3
--- NOTE | 2025-01-14 00:49 | ADMGEN ---
This patient, Bob Simmons, was admitted to [facility] Surg Room 331-01. Patient/family oriented to hospital policies and general routines including ID bracelet, bed and alarms, visiting hours, pain management, procedures, bathroom and other care routines, personal items, smoking policy, room service/diet, and visiting hours. Information on how to activate the Rapid Response Team has been discussed. Patient/Family are encouraged to report perceived risks to care and to ask questions if they do not understand what they are told or what they should do.
--- NOTE | 2025-01-14 02:36 | PC.NURSE ---
I agree with Jennifer ANDRES's assessment.
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
[2025-01-14] MEDS: BACLOFEN 5 MG TABLET 15 MG PO ×3 (10:28→21:55)
[2025-01-14] MEDS: APIXABAN 5 MG TABLET PO ×2 (10:28→21:55)
[2025-01-14] MEDS: ASCORBIC ACID 500 MG TABLET PO (10:29)
[2025-01-14] MEDS: CHOLECALCIFEROL (VITAMIN D3) 25 MCG (1,000 UNITS) TABLET PO (10:29)
[2025-01-14] MEDS: FERROUS SULFATE 325 MG TABLET DR PO ×2 (10:29→17:05)
[2025-01-14] MEDS: CYANOCOBALAMIN 1,000 MCG TABLET 1000 MCG PO (10:29)
[2025-01-14] MEDS: PANTOPRAZOLE 40 MG TABLET PO (10:29)
[2025-01-14] MEDS: MULTIVITAMINS THERAPEUTIC TAB (*BKC) 1 TABLET PO (10:29)
[2025-01-14] MEDS: EUCERIN CREAM 120 GM JAR 1 APPLIC TOPICAL (10:31)
[2025-01-14] MEDS: CALCIUM CARBONATE (TUMS) 500 MG (200 MG ELEMENTAL) PO ×2 (12:28→17:04)
[2025-01-14] MEDS: SODIUM CHLORIDE 5% OPHTH OINT 3.5 GM TUBE 1 APPLIC EACH EYE ×2 (12:29→17:08)
[2025-01-14] MEDS: CEFEPIME 1 GM/NS 50 ML 1 GM/50 ML BAG IVPB (21:54)
[2025-01-14] MEDS: MELATONIN 5 MG TABLET PO (21:55)
[2025-01-14] MEDS: ATORVASTATIN 10 MG TABLET PO (21:55)
[2025-01-14] MEDS: GABAPENTIN 100 MG CAPSULE 200 MG PO (21:55)
[2025-01-14] MEDS: MONTELUKAST SODIUM 10 MG TABLET PO (21:56)
[2025-01-15] MEDS: LEVOTHYROXINE SODIUM 25 MCG TABLET PO (05:53)
[2025-01-15 06:00] VITALS: BP 136/43; PULSE 75; RESP 16; TEMP 36.7; O2SAT 94
[2025-01-15 07:16] LABS: Hematocrit 27.7 % (42.0-52.0); Hemoglobin 8.9 g/dL (14.0-18.0); Immature Granulocyte Percent A 0.4 % (0-0.5); Lymphocytes Absolute Auto 1.56 K/mm3 (0.9-3.2); Mean Corpuscular HGB Conc 32.1 g/dl (32-36); Mean Corpuscular Hemoglobin 28.0 pg (26-34); Mean Corpuscular Volume 87.1 fl (80-100); Nucleated Red Blood Cells Absolute Auto 0.000 K/mm3 (0.0-0.012); Nucleated Red Blood Cells Perc 0.0 % (0.0-0.2); Platelet Count Result 199 k/mm3 (150-375); Red Blood Count 3.18 M/mm3 (4.6-6.20); White Blood Count 9.1 K/mm3 (4.5-10.0)
[2025-01-15 07:30] LABS: Alanine Aminotransferase 17 U/L (6-50); Albumin Level 3.5 g/dL (3.5-5.1); Alkaline Phosphatase 153 U/L (38-126); Anion Gap 10 mmol/L (4-12); Aspartate Amino Transferase 22 U/L (17-59); Bilirubin,Total 0.6 mg/dL (0.2-1.3); Blood Urea Nitrogen 38 mg/dL (9-20); Calcium 8.6 mg/dL (8.4-10.2); Carbon Dioxide 17 mmol/L (22-30); Chloride 107 mmol/L (98-107); Estimated CRCL calculation 53 ml/min; Estimated Glomerular Filt Rate 43; Glucose 93 mg/dL (65-110); Potassium 4.2 mmol/L (3.4-5.0); Sodium 134 mmol/L (137-145); Total Protein 7.4 g/dL (6.3-8.2)
[2025-01-15 08:00] VITALS: PULSE 77; O2SAT 97
[2025-01-15] MEDS: FLUTICASONE/UMECLIDIN/VILANTER 100-62.5-25 MCG ELLIPTA 1 PUFF INHALATION (08:04)
[2025-01-15] MEDS: CALCIUM CARBONATE (TUMS) 500 MG (200 MG ELEMENTAL) PO ×3 (08:07→16:43)
[2025-01-15] MEDS: PANTOPRAZOLE 40 MG TABLET PO (08:09)
[2025-01-15] MEDS: FERROUS SULFATE 325 MG TABLET DR PO ×2 (08:09→16:43)
[2025-01-15] MEDS: MULTIVITAMINS THERAPEUTIC TAB (*BKC) 1 TABLET PO (08:10)
[2025-01-15] MEDS: CYANOCOBALAMIN 1,000 MCG TABLET 1000 MCG PO (08:10)
[2025-01-15] MEDS: BACLOFEN 5 MG TABLET 15 MG PO ×4 (08:10→21:42)
[2025-01-15] MEDS: ASCORBIC ACID 500 MG TABLET PO (08:10)
[2025-01-15] MEDS: CHOLECALCIFEROL (VITAMIN D3) 25 MCG (1,000 UNITS) TABLET PO (08:10)
[2025-01-15] MEDS: APIXABAN 5 MG TABLET PO ×2 (08:11→21:42)
[2025-01-15] MEDS: SODIUM CHLORIDE 5% OPHTH OINT 3.5 GM TUBE 1 APPLIC EACH EYE (08:12)
[2025-01-15 10:01] VITALS: O2SAT 96
--- NOTE | 2025-01-15 12:01 | PM.IMPN ---
Progress Note: A&P Assessment and Plan (1) Urinary tract infection: Code(s): N39.0 - Urinary tract infection, site not specified Status: Acute Assessment and Plan: Urine culture is pending. Continue with IV antibiotic for now. (2) Hypertension: Qualifiers: Hypertension type: unspecified Qualified Code(s): I10 - Essential (primary) hypertension Code(s): I10 - Essential (primary) hypertension Status: Chronic Assessment and Plan: Stable on current medication, continue current treatment. (3) Paroxysmal atrial fibrillation: Code(s): I48.0 - Paroxysmal atrial fibrillation Status: Acute Assessment and Plan: Stable on current medication, continue current treatment (4) Hypothyroid: Qualifiers: Hypothyroidism type: unspecified Qualified Code(s): E03.9 - Hypothyroidism, unspecified Code(s): E03.9 - Hypothyroidism, unspecified Status: Acute Assessment and Plan: Stable on current medication, continue current treatment Plan Admit as a full admission. Regular floor. Code status full. DVT prophylaxis Eliquis. Subjective Date/time seen: 01/15/25 12:01 Interval history: UTI, CHF hypertension, paroxysmal atrial fibrillation, hypothyroidism. Patient was seen during the morning rounds today. Patient is feeling better. No shortness of breath or chest pain. No abdominal pain, nausea, no vomiting. Review of Systems Review of Systems: the history and physical exam. All systems reviewed & are unremarkable except as noted in HPI and below Exam Narrative: APPEARANCE: Ill-appearing HEAD: normocephalic, atraumatic. EYES: PERRLA/EOMI, conjunctivae clear. NOSE: Normal no drainage EARS:TMS clear with good light reflex. THROAT: Pharynx clear, no exudate. NECK: Supple. No adenopathy, no masses. RESPIRATORY: Airway patent, respirations nonlabored. Clear to auscultation bilaterally, no rales, rhonchi, wheezing. CARDIOVASCULAR: Regular rate and rhythm without murmurs rubs or gallops. ABDOMINAL: Ostomy intact role. MUSCULOSKELETAL: Moves all extremities. Strength/ROM intact, No edema, No calf tenderness. NEURO: Alert but disoriented. Cranial nerves II through XII intact. SKIN: Warm, dry. Normal Color Objective Data Vital Signs Vital Signs: Vital Signs - 24 hr 01/14/25 14:00 01/14/25 20:00 01/14/25 22:00 Temperature 36.4 C 36.4 C Pulse Rate 75 84 84 Respiratory Rate 16 16 16 Blood Pressure 133/73 146/84 H Pulse Oximetry 98 95 95 Oxygen Delivery Room Air Fraction of Inspired Oxygen 21 01/15/25 06:00 01/15/25 08:00 01/15/25 10:01 Temperature 36.7 C Pulse Rate 75 77 Respiratory Rate 16 Blood Pressure 136/43 L Pulse Oximetry 94 97 96 Oxygen Delivery Room Air Room Air Fraction of Inspired Oxygen Intake/Output Intake/Output: Intake & Output 01/12/25 01/13/25 01/14/25 01/15/25 23:59 23:59 23:59 23:59 Intake Total 1050 530 800 Output Total 1250 900 Balance 1050 -720 -100 Meds/Results Medications: Active Medications Generic Name Dose Route Start Last Admin Trade Name Freq PRN Reason Stop Dose Admin Acetaminophen 1,000 mg 01/14/25 09:49 Acetaminophen 500 Mg Tablet PO Q6H PRN pain Apixaban 5 mg 01/14/25 09:00 01/15/25 08:11 Apixaban 5 Mg Tablet PO 5 mg Q12HR VAIBHAV Administration Ascorbic Acid 500 mg 01/14/25 09:00 01/15/25 08:10 Ascorbic Acid 500 Mg Tablet PO 500 mg QAM VAIBHAV Administration Atorvastatin Calcium 10 mg 01/14/25 21:00 01/14/25 21:55 Atorvastatin 10 Mg Tablet PO 10 mg HS VAIBHAV Administration Baclofen 15 mg 01/14/25 12:00 01/15/25 08:10 Baclofen 5 Mg Tablet PO 15 mg 0800,1200,1600,2000 VAIBHAV Administration Calcium Carbonate 200 mg 01/14/25 13:00 01/15/25 08:07 Calcium Carbonate (Tums) 500 Mg (200 Mg Elemental) PO 200 mg TID VAIBHAV Administration Cyanocobalamin 1,000 mcg 01/14/25 09:00 01/15/25 08:10 Cyanocobalamin 1,000 Mcg Tablet PO 1,000 mcg DAILY VAIBHAV Administration Diclofenac Sodium 1 applic 01/14/25 09:00 01/15/25 08:08 Diclofenac Sodium 1% 100 Gm Gel (*Bkc) TOPICAL Not Given BID VAIBHAV Diltiazem HCl 30 mg 01/14/25 13:00 01/15/25 08:09 Diltiazem Hcl 30 Mg Tablet PO 30 mg TID VAIBHAV Administration Diphenhydramine HCl 25 mg 01/14/25 10:19 Diphenhydramine Hcl Cap 25 Mg Capsule PO Q6H PRN allergy symptoms Docusate Sodium 100 mg 01/14/25 09:49 Docusate Sodium 100 Mg Capsule PO BID PRN constipation Ferrous Sulfate 325 mg 01/14/25 09:00 01/15/25 08:09 Ferrous Sulfate [address] PO 325 mg BID [facility] Administration Fluticasone/Umeclidinium/Vilanterol 1 puff 01/14/25 08:00 01/15/25 08:04 Fluticasone/Umeclidin/Vilanter 100-62.5-25 Mcg Ellipta INHALATION 1 puff DAILYRT [facility] Administration Gabapentin 200 mg 01/14/25 21:00 01/14/25 21:55 Gabapentin 100 Mg Capsule PO 200 mg HS [facility] Administration Guaifenesin 400 mg 01/14/25 21:00 01/14/25 21:56 Guaifenesin 200 Mg/10 Ml Udc PO 400 mg QHS [facility] Administration Guaifenesin/Dextromethorphan 1 tab 01/14/25 09:49 Guaifenesin 600 Mg/Dextromethorphan 30 Mg Sr Tab 12 Hr PO Q12H PRN cough Cefepime HCl 1 gm in 50 mls @ 100 mls/hr 01/14/25 22:00 01/14/25 22:24 Maxipime 1 Gm/Ns 50 Ml IVPB Infused Q24H [facility] Infusion Ipratropium [place] 0.5 mg 01/14/25 13:00 Ipratropium Br 0.02% Inh Soln 0.5 Mg/2.5 Ml Vial INHALATION TID [facility] Levothyroxine Sodium 25 mcg 01/15/25 06:30 01/15/25 05:53 Levothyroxine Sodium 25 Mcg Tablet PO 25 mcg DAILY@0630 [facility] Administration Loratadine 10 mg 01/14/25 10:21 Loratadine 10 Mg Tablet PO DAILY PRN Allergy Symptoms Meclizine HCl 12.5 mg 01/14/25 09:49 Meclizine Hcl 12.5 Mg Tablet PO TID PRN Dizziness Or Vertigo Melatonin 5 mg 01/14/25 21:00 01/14/25 21:55 Melatonin 5 Mg Tablet PO 5 mg QHS VAIBHAV Administration Miscellaneous Information 1 each 01/14/25 00:01 Lidocaine Site Of Application Needed. And Is This Schedule Daily Or Should Be Prn? XX 02/13/25 00:00 CLARIFY VAIBHAV Miscellaneous Information 1 each 01/14/25 00:01 (Albuterol-Budesonide [Airsupra] 90-80 Mcg/Actuation Hfa Aerosol Inhaler Is Nonformulary.O XX 02/13/25 00:00 CLARIFY VAIBHAV Miscellaneous Information 1 each 01/14/25 00:01 Narcan Nasal Is Nonformulary. Hold While Hospitalized? XX 02/13/25 00:00 CLARIFY VAIBHAV Miscellaneous Information 1 each 01/14/25 00:01 Benadryl Dup Prn Indication With Zyrtec (Sub'D Loratadine). D/C Benadryl? XX 02/13/25 00:00 CLARIFY VAIBHAV Miscellaneous Information 1 each 01/14/25 00:01 Atrovent Neb Scheduled Tid? Please Clarify If This Is To Continue Regularly Scheduled Dosi XX 02/13/25 00:00 CLARIFY VAIBHAV Montelukast Sodium 10 mg 01/14/25 21:00 01/14/25 21:56 Montelukast Sodium 10 Mg Tablet PO 10 mg QHS VAIBHAV Administration Multi-Ingred Cream/Lotion/Oil/Oint 1 applic 01/14/25 09:49 01/14/25 10:31 Eucerin Cream 120 Gm Jar TOPICAL 1 applic DAILY PRN Administration Dry Skin Multivitamins Therapeutic 1 tablet 01/14/25 09:00 01/15/25 08:10 Multivitamins Therapeutic Tab (*Bkc) PO 1 tablet DAILY VAIBHAV Administration Non-Formulary Medication 2 inhalation 01/14/25 10:00 Albuterol-Budesonide [Airsupra] INHALATION 02/13/25 09:59 ONCE VAIBHAV Non-Formulary Medication 1 patch 01/15/25 09:00 Lidocaine Hcl-Menthol [Lidozenpatch(Lido Hcl-Menthol)] TOPICAL 02/14/25 08:59 DAILY VAIBHAV Non-Formulary Medication 4 mg 01/14/25 09:49 Naloxone [Narcan] NASAL Q3M PRN Congestion Pantoprazole Sodium 40 mg 01/14/25 09:00 01/15/25 08:09 Pantoprazole 40 Mg Tablet PO 40 mg QAM VAIBHAV Administration Polyethylene Glycol 17 gm 01/14/25 18:00 01/14/25 16:07 Polyethylene Glycol 3350 17 Gm Powd.Pack PO Not Given QPM VAIBHAV Simethicone 80 mg 01/14/25 09:49 Simethicone 80 Mg Tab.Chew PO Q6H PRN Abdominal Discomfort Sodium Chloride 1 applic 01/14/25 13:00 01/15/25 08:12 Sodium Chloride 5% Ophth Oint 3.5 Gm Tube EACH EYE 1 applic QID VAIBHAV Administration Vitamin D 25 mcg 01/14/25 09:00 01/15/25 08:10 Cholecalciferol (Vitamin D3) 25 Mcg (1,000 Units) Tablet PO 25 mcg DAILY VAIBHAV Administration Radiology Results: ITS Impressions Head CT 01/13/25 18:18 IMPRESSION: No acute intracranial findings. Chest X-Ray 01/13/25 20:59 IMPRESSION: No focal infiltrate or effusion. Labs Labs: Laboratory Results - last 24 hr 01/15/25 06:43 WBC 9.1 RBC 3.18 L Hgb 8.9 L Hct 27.7 L MCV 87.1 MCH 28.0 MCHC 32.1 RDW 15.9 H Plt Count 199 MPV 9.5 Immature Gran % (Auto) 0.4 Neut % (Auto) 66.8 Lymph % (Auto) 17.2 L [place] % (Auto) 9.6 H Eos % (Auto) 5.4 H Baso % (Auto) 0.6 Lymph # (Auto) 1.56 [place] # (Auto) 0.9 H Eos # (Auto) 0.5 H Baso # (Auto) 0.1 Abs Immat Gran (auto) 0.04 H Absolute Neuts (auto) 6.1 Absolute Nucleated RBC 0.000 Nucleated RBC % 0.0 Sodium 134 L Potassium 4.2 Chloride 107 Carbon Dioxide 17 L Anion Gap 10 BUN 38 H Creatinine 1.58 H Estim Creat Clear Calc 53 Estimated GFR 43 L Glucose 93 Calcium 8.6 Total Bilirubin 0.6 AST 22 ALT 17 Alkaline Phosphatase 153 H Total Protein 7.4 Albumin 3.5
[2025-01-15 13:24] VITALS: BP 134/61; PULSE 76; RESP 18; TEMP 37.1; O2SAT 98
[2025-01-15 20:00] VITALS: PULSE 81; RESP 16; O2SAT 96
[2025-01-15 21:29] VITALS: BP 153/59; PULSE 81; RESP 16; TEMP 36.9; O2SAT 96
[2025-01-15] MEDS: CEFEPIME 1 GM/NS 50 ML 1 GM/50 ML BAG IVPB (21:41)
[2025-01-15] MEDS: MONTELUKAST SODIUM 10 MG TABLET PO (21:42)
[2025-01-15] MEDS: ATORVASTATIN 10 MG TABLET PO (21:42)
[2025-01-15] MEDS: GABAPENTIN 100 MG CAPSULE 200 MG PO (21:42)
[2025-01-15] MEDS: MELATONIN 5 MG TABLET PO (21:42)
[2025-01-16 06:00] VITALS: BP 138/46; PULSE 74; RESP 20; TEMP 36; O2SAT 96
[2025-01-16] MEDS: LEVOTHYROXINE SODIUM 25 MCG TABLET PO (06:27)
[2025-01-16] MEDS: MULTIVITAMINS THERAPEUTIC TAB (*BKC) 1 TABLET PO (08:35)
[2025-01-16] MEDS: ASCORBIC ACID 500 MG TABLET PO (08:35)
[2025-01-16] MEDS: CHOLECALCIFEROL (VITAMIN D3) 25 MCG (1,000 UNITS) TABLET PO (08:35)
[2025-01-16] MEDS: CALCIUM CARBONATE (TUMS) 500 MG (200 MG ELEMENTAL) PO ×3 (08:35→16:01)
[2025-01-16] MEDS: APIXABAN 5 MG TABLET PO ×2 (08:35→20:03)
[2025-01-16] MEDS: FERROUS SULFATE 325 MG TABLET DR PO ×2 (08:35→16:00)
[2025-01-16] MEDS: CYANOCOBALAMIN 1,000 MCG TABLET 1000 MCG PO (08:35)
[2025-01-16] MEDS: PANTOPRAZOLE 40 MG TABLET PO (08:35)
[2025-01-16] MEDS: BACLOFEN 5 MG TABLET 15 MG PO ×4 (08:39→20:03)
[2025-01-16] MEDS: FLUTICASONE/UMECLIDIN/VILANTER 100-62.5-25 MCG ELLIPTA 1 PUFF INHALATION (10:47)
[2025-01-16 14:00] VITALS: BP 118/56; PULSE 74; RESP 20; TEMP 35.8; O2SAT 98
[2025-01-16] MEDS: CEFEPIME 2 GM/NS 50 ML 2 GM/50 ML BAG IVPB ×2 (14:15→23:00)
--- NOTE | 2025-01-16 14:34 | P.PNIM_ITS ---
Progress Note: A&P Assessment and Plan (1) Urinary tract infection: Code(s): N39.0 - Urinary tract infection, site not specified Status: Acute Assessment and Plan: Urine culture grows Klebsiella and E coli. Pending susceptibility Continue cefepime 2 g q.12 hours IV (2) Hypertension: Qualifiers: Hypertension type: unspecified Qualified Code(s): I10 - Essential (primary) hypertension Code(s): I10 - Essential (primary) hypertension Status: Chronic Assessment and Plan: Stable on current medication, continue current treatment. (3) Paroxysmal atrial fibrillation: Code(s): I48.0 - Paroxysmal atrial fibrillation Status: Acute Assessment and Plan: Stable on current medication, continue current treatment (4) Hypothyroid: Qualifiers: Hypothyroidism type: unspecified Qualified Code(s): E03.9 - Hypothyroidism, unspecified Code(s): E03.9 - Hypothyroidism, unspecified Status: Acute Assessment and Plan: Stable on current medication, continue current treatment Plan Admit as a full admission. Regular floor. Code status full. DVT prophylaxis Eliquis. Subjective Date/time seen: 01/16/25 14:34 Interval history: Patient feels better today, still has general weakness, denies focal weakness Some discomfort with urination Exam Narrative: APPEARANCE: Ill-appearing HEAD: normocephalic, atraumatic. EYES: PERRLA/EOMI, conjunctivae clear. NOSE: Normal no drainage EARS:TMS clear with good light reflex. THROAT: Pharynx clear, no exudate. NECK: Supple. No adenopathy, no masses. RESPIRATORY: Airway patent, respirations nonlabored. Clear to auscultation bilaterally, no rales, rhonchi, wheezing. CARDIOVASCULAR: Regular rate and rhythm without murmurs rubs or gallops. ABDOMINAL: Ostomy intact role. MUSCULOSKELETAL: Moves all extremities. Strength/ROM intact, No edema, No calf tenderness. NEURO: Alert but disoriented. Cranial nerves II through XII intact. SKIN: Warm, dry. Normal Color Objective Data Vital Signs Vital Signs: Vital Signs - 24 hr 01/15/25 20:00 01/15/25 21:29 01/16/25 06:00 Temperature 98.4 F 96.8 F L Pulse Rate 81 81 74 Respiratory Rate 16 16 20 Blood Pressure 153/59 H 138/46 L Pulse Oximetry 96 96 96 Oxygen Delivery Room Air Fraction of Inspired Oxygen 01/16/25 08:35 Temperature Pulse Rate Respiratory Rate Blood Pressure Pulse Oximetry Oxygen Delivery Room Air Fraction of Inspired Oxygen Intake/Output Intake/Output: Intake & Output 01/13/25 01/14/25 01/15/25 01/16/25 23:59 23:59 23:59 23:59 Intake Total 1980 709 0831 720 Output Total 1250 1225 1100 Balance 1050 720 637 -380 Meds/Results Medications: Active Medications Generic Name Dose Route Start Last Admin Trade Name Freq PRN Reason Stop Dose Admin Acetaminophen 1,000 mg 01/14/25 09:49 Acetaminophen 500 Mg Tablet PO Q6H PRN pain Apixaban 5 mg 01/14/25 09:00 01/16/25 08:35 Apixaban 5 Mg Tablet PO 5 mg Q12HR [facility] Administration Ascorbic Acid 500 mg 01/14/25 09:00 01/16/25 08:35 Ascorbic Acid 500 Mg Tablet PO 500 mg QAM [facility] Administration Atorvastatin Calcium 10 mg 01/14/25 21:00 01/15/25 21:42 Atorvastatin 10 Mg Tablet PO 10 mg HS [facility] Administration Baclofen 15 mg 01/14/25 12:00 01/16/25 12:20 Baclofen 5 Mg Tablet PO 15 mg 0800,1200,1600,2000 [facility] Administration Calcium Carbonate 200 mg 01/14/25 13:00 01/16/25 12:19 Calcium Carbonate (Tums) 500 Mg (200 Mg Elemental) PO 200 mg TID [facility] Administration Cyanocobalamin 1,000 mcg 01/14/25 09:00 01/16/25 08:35 Cyanocobalamin 1,000 Mcg Tablet PO 1,000 mcg DAILY [facility] Administration Diclofenac Sodium 1 applic 01/14/25 09:00 01/16/25 08:36 Diclofenac Sodium 1% 100 Gm Gel (*Bkc) TOPICAL Not Given BID [facility] Diltiazem HCl 30 mg 01/14/25 13:00 01/16/25 12:19 Diltiazem Hcl 30 Mg Tablet PO 30 mg TID [facility] Administration Diphenhydramine HCl 25 mg 01/14/25 10:19 Diphenhydramine Hcl Cap 25 Mg Capsule PO Q6H PRN allergy symptoms Docusate Sodium 100 mg 01/14/25 09:49 Docusate Sodium 100 Mg Capsule PO BID PRN constipation Ferrous Sulfate 325 mg 01/14/25 09:00 01/16/25 08:35 Ferrous Sulfate [address] PO 325 mg BID [facility] Administration Fluticasone/Umeclidinium/Vilanterol 1 puff 01/14/25 08:00 01/16/25 10:49 Fluticasone/Umeclidin/Vilanter 100-62.5-25 Mcg Ellipta INHALATION Not Given DAILYRT [facility] Gabapentin 200 mg 01/14/25 21:00 01/15/25 21:42 Gabapentin 100 Mg Capsule PO 200 mg HS [facility] Administration Guaifenesin 400 mg 01/14/25 21:00 01/15/25 21:42 Guaifenesin 200 Mg/10 Ml Udc PO 400 mg QHS [facility] Administration Guaifenesin/Dextromethorphan 1 tab 01/14/25 09:49 Guaifenesin 600 Mg/Dextromethorphan 30 Mg Sr Tab 12 Hr PO Q12H PRN cough Cefepime HCl 2 gm in 50 mls @ 100 mls/hr 01/16/25 14:00 01/16/25 14:15 Maxipime 2 Gm/Ns 50 Ml IVPB 100 mls/hr Q12HR [facility] Administration Ipratropium Bath 0.5 mg 01/14/25 13:00 Ipratropium Br 0.02% Inh Soln 0.5 Mg/2.5 Ml Vial INHALATION TID [facility] Levothyroxine Sodium 25 mcg 01/15/25 06:30 01/16/25 06:27 Levothyroxine Sodium 25 Mcg Tablet PO 25 mcg DAILY@0630 [facility] Administration Loratadine 10 mg 01/14/25 10:21 Loratadine 10 Mg Tablet PO DAILY PRN Allergy Symptoms Meclizine HCl 12.5 mg 01/14/25 09:49 Meclizine Hcl 12.5 Mg Tablet PO TID PRN Dizziness Or Vertigo Melatonin 5 mg 01/14/25 21:00 01/15/25 21:42 Melatonin 5 Mg Tablet PO 5 mg QHS [facility] Administration Miscellaneous Information 1 each 01/14/25 00:01 Lidocaine Site Of Application Needed. And Is This Schedule Daily Or Should Be Prn? XX 02/13/25 00:00 CLARIFY [facility] Miscellaneous Information 1 each 01/14/25 00:01 (Albuterol-Budesonide [Airsupra] 90-80 Mcg/Actuation Hfa Aerosol Inhaler Is Nonformulary.O XX 02/13/25 00:00 CLARIFY [facility] Miscellaneous Information 1 each 01/14/25 00:01 Narcan Nasal Is Nonformulary. Hold While Hospitalized? XX 02/13/25 00:00 CLARIFY [facility] Miscellaneous Information 1 each 01/14/25 00:01 Benadryl Dup Prn Indication With Zyrtec (Sub'D Loratadine). D/C Benadryl? XX 02/13/25 00:00 CLARIFY [facility] Miscellaneous Information 1 each 01/14/25 00:01 Atrovent Neb Scheduled Tid? Please Clarify If This Is To Continue Regularly Scheduled Dosi XX 02/13/25 00:00 CLARIFY [facility] Montelukast Sodium 10 mg 01/14/25 21:00 01/15/25 21:42 Montelukast Sodium 10 Mg Tablet PO 10 mg QHS [facility] Administration Multi-Ingred Cream/Lotion/Oil/Oint 1 applic 01/14/25 09:49 01/14/25 10:31 Eucerin Cream 120 Gm Jar TOPICAL 1 applic DAILY PRN Administration Dry Skin Multivitamins Therapeutic 1 tablet 01/14/25 09:00 01/16/25 08:35 Multivitamins Therapeutic Tab (*Bkc) PO 1 tablet DAILY [facility] Administration Non-Formulary Medication 2 inhalation 01/14/25 10:00 Albuterol-Budesonide [Airsupra] INHALATION 02/13/25 09:59 ONCE [facility] Non-Formulary Medication 1 patch 01/15/25 09:00 Lidocaine Hcl-Menthol [Lidozenpatch(Lido Hcl-Menthol)] TOPICAL 02/14/25 08:59 DAILY [facility] Non-Formulary Medication 4 mg 01/14/25 09:49 Naloxone [Narcan] NASAL Q3M PRN Congestion Pantoprazole Sodium 40 mg 01/14/25 09:00 01/16/25 08:35 Pantoprazole 40 Mg Tablet PO 40 mg QAM [facility] Administration Polyethylene Glycol 17 gm 01/14/25 18:00 01/15/25 16:42 Polyethylene Glycol 3350 17 Gm Powd.Pack PO Not Given QPM [facility] Simethicone 80 mg 01/14/25 09:49 Simethicone 80 Mg Tab.Chew PO Q6H PRN Abdominal Discomfort Sodium Chloride 1 applic 01/14/25 13:00 01/16/25 12:20 Sodium Chloride 5% Ophth Oint 3.5 Gm Tube EACH EYE Not Given QID [facility] Vitamin D 25 mcg 01/14/25 09:00 01/16/25 08:35 Cholecalciferol (Vitamin D3) 25 Mcg (1,000 Units) Tablet PO 25 mcg DAILY [facility] Administration Radiology Results: ITS Impressions Head CT 01/13/25 18:18 IMPRESSION: No acute intracranial findings. Chest X-Ray 01/13/25 20:59 IMPRESSION: No focal infiltrate or effusion.
[2025-01-16] MEDS: ATORVASTATIN 10 MG TABLET PO (20:02)
[2025-01-16] MEDS: MONTELUKAST SODIUM 10 MG TABLET PO (20:02)
[2025-01-16] MEDS: GABAPENTIN 100 MG CAPSULE 200 MG PO (20:03)
[2025-01-16 21:09] VITALS: BP 134/63; PULSE 77; RESP 18; TEMP 36.4; O2SAT 98
[2025-01-17 05:23] VITALS: BP 137/56; PULSE 73; RESP 20; TEMP 36.4; O2SAT 98
[2025-01-17] MEDS: LEVOTHYROXINE SODIUM 25 MCG TABLET PO (05:36)
[2025-01-17] MEDS: MULTIVITAMINS THERAPEUTIC TAB (*BKC) 1 TABLET PO (08:01)
[2025-01-17] MEDS: PANTOPRAZOLE 40 MG TABLET PO (08:01)
[2025-01-17] MEDS: APIXABAN 5 MG TABLET PO ×2 (08:01→20:27)
[2025-01-17] MEDS: CHOLECALCIFEROL (VITAMIN D3) 25 MCG (1,000 UNITS) TABLET PO (08:01)
[2025-01-17] MEDS: ASCORBIC ACID 500 MG TABLET PO (08:01)
[2025-01-17] MEDS: CYANOCOBALAMIN 1,000 MCG TABLET 1000 MCG PO (08:01)
[2025-01-17] MEDS: CALCIUM CARBONATE (TUMS) 500 MG (200 MG ELEMENTAL) PO ×3 (08:01→17:14)
[2025-01-17] MEDS: FERROUS SULFATE 325 MG TABLET DR PO ×2 (08:01→17:14)
[2025-01-17] MEDS: CEFEPIME 2 GM/NS 50 ML 2 GM/50 ML BAG IVPB (08:02)
[2025-01-17] MEDS: DICLOFENAC SODIUM 1% 100 GM GEL (*BKC) 1 APPLIC TOPICAL ×2 (08:02→17:20)
[2025-01-17] MEDS: FLUTICASONE/UMECLIDIN/VILANTER 100-62.5-25 MCG ELLIPTA 1 PUFF INHALATION (08:27)
[2025-01-17 08:28] VITALS: PULSE 58; RESP 16; O2SAT 97
[2025-01-17] MEDS: BACLOFEN 5 MG TABLET 15 MG PO ×4 (09:05→20:27)
[2025-01-17] MEDS: LIDOCAINE 5% PATCH 1 PATCH TRANSDERM (11:01)
--- NOTE | 2025-01-17 11:40 | P.DS_ITS ---
DS: Discharge Diagnosis Discharge Diagnosis (1) Urinary tract infection: Code(s): N39.0 - Urinary tract infection, site not specified Status: Acute Assessment and Plan: Urine culture grows Klebsiella and E coli. Pending susceptibility Continue cefepime 2 g q.12 hours IV (2) Hypertension: Qualifiers: Hypertension type: unspecified Qualified Code(s): I10 - Essential (primary) hypertension Code(s): I10 - Essential (primary) hypertension Status: Chronic Assessment and Plan: Stable on current medication, continue current treatment. (3) Paroxysmal atrial fibrillation: Code(s): I48.0 - Paroxysmal atrial fibrillation Status: Acute Assessment and Plan: Stable on current medication, continue current treatment (4) Hypothyroid: Qualifiers: Hypothyroidism type: unspecified Qualified Code(s): E03.9 - Hypothyroidism, unspecified Code(s): E03.9 - Hypothyroidism, unspecified Status: Acute Assessment and Plan: Stable on current medication, continue current treatment Plan Admit as a full admission. Regular floor. Code status full. DVT prophylaxis Eliquis. DS: Summary Time Spent with Patient Time attestation: Total time spent providing and/or coordinating discharge services: Exam Narrative: APPEARANCE: Ill-appearing HEAD: normocephalic, atraumatic. EYES: PERRLA/EOMI, conjunctivae clear. NOSE: Normal no drainage EARS:TMS clear with good light reflex. THROAT: Pharynx clear, no exudate. NECK: Supple. No adenopathy, no masses. RESPIRATORY: Airway patent, respirations nonlabored. Clear to auscultation bilaterally, no rales, rhonchi, wheezing. CARDIOVASCULAR: Regular rate and rhythm without murmurs rubs or gallops. ABDOMINAL: Ostomy intact role. MUSCULOSKELETAL: Moves all extremities. Strength/ROM intact, No edema, No calf tenderness. NEURO: Alert but disoriented. Cranial nerves II through XII intact. SKIN: Warm, dry. Normal Color Discharge Plan Discharge Consulting providers: Obi Larsen Patient Instructions: Apixaban (By mouth), Heart Failure (GEN) Patient Language: [place] Discharge Medications: No Action Zyrtec 10 mg capsule 10 mg PO DAILY PRN (Reason: Allergy Symptoms) multivitamin Tablet 1 tablet PO DAILY gabapentin 100 mg capsule 200 mg PO DAILY melatonin 5 mg capsule 5 mg PO QHS omeprazole 20 mg capsule,delayed release(DR/EC) 20 mg PO DAILY simethicone [Gas Relief (simethicone)] 80 mg tablet,chewable 80 mg PO Q6H PRN (Reason: Abdominal Discomfort) Rx Instructions: after meals montelukast [Singulair] 10 mg tablet 10 mg PO QHS baclofen 10 mg tablet 15 mg PO QID Rx Instructions: 0800,1200,1600,2000 acetaminophen 500 mg capsule 1,000 mg PO Q6H PRN (Reason: pain) Patient Comments: ... guaifenesin 400 mg tablet 400 mg PO QHS diphenhydramine HCl [Allergy (diphenhydramine)] 25 mg capsule 25 mg PO Q6H PRN (Reason: allergy symptoms) cyanocobalamin (vitamin B-12) 1,000 mcg tablet 1,000 mcg PO DAILY calcium carbonate [Antacid (calcium carbonate)] 200 mg calcium (500 mg) tablet,chewable 200 mg PO TID diclofenac sodium [Voltaren Arthritis Pain] 1 % gel 2 g topical BID Rx Instructions: apply to single elbow, wrist or hand; for hand includes palm/fingers/back of hand Mucinex DM 30-600 mg tablet extended release 12 hr 1 tablet PO Q12H PRN (Reason: cough) sodium chloride [Vanessa 128] 5 % ointment 1 applic EACH EYE QID Airsupra 90-80 mcg/actuation HFA aerosol inhaler 2 inh inhalation ONCE Patient Comments: . Rx Instructions: as a single dose; may repeat up to 6 doses per day (12 inhalations) Breztri Aerosphere 160-9-4.8 mcg/actuation HFA aerosol inhaler 2 inh inhalation BID ferrous sulfate 325 mg (65 mg iron) Tablet 325 mg PO BID ascorbic acid (vitamin C) 500 mg Capsule, Extended Release 500 mg PO DAILY polyethylene glycol 3350 [Miralax] 17 gram Powder In Packet 17 g PO QPM meclizine 12.5 mg Tablet 12.5 mg PO TID PRN (Reason: Dizziness Or Vertigo) Eucerin Cream 1 applic TOPICAL DAILY PRN (Reason: Dry Skin) naloxone [Narcan] 4 mg/actuation [place],Non-Aerosol 4 mg INTRANASAL Q3M PRN (Reason: Congestion) Rx Instructions: spray 1 dose into ONE nostril; alternate nostrils w each dose until help arrives Eliquis 5 mg tablet 5 mg PO BID levothyroxine 25 mcg tablet 25 mcg PO DAILY cholecalciferol (vitamin D3) 1,000 units 25 mcg PO DAILY diltiazem HCl 30 mg tablet 30 mg PO TID Patient Comments: Called assisted they said medication is PRN but could not give me an indication. Rx Instructions: HOLD IF HR<50 OR SBP<100 docusate sodium [Colace] 100 mg capsule 100 mg PO BID PRN (Reason: constipation) LidozenPatch(lido HCl-menthol) 4-1 % adhesive patch,medicated 1 patch topical DAILY Patient Comments: uses 2 patches to right shoulder Rx Instructions: may leave on area for up to 8 hrs atorvastatin 10 mg Tablet 10 mg PO HS ipratropium bromide 0.02 % solution 2.5 ml inhalation TID Date of admission: 01/14/25 08:53 Primary Care Provider: PHYSICIAN,TEACHER EDUCATION DIRECTOR Admitting Provider: Isaak Chacon Attending physician on admission: Isaak Chacon Condition: Serious
[2025-01-17 12:45] VITALS: BP 140/50; PULSE 73; O2SAT 99
--- NOTE | 2025-01-17 13:53 | PM.IMPN ---
Progress Note: A&P Assessment and Plan (1) Urinary tract infection: Code(s): N39.0 - Urinary tract infection, site not specified Status: Acute Assessment and Plan: Urine culture noted Klebsiella and E. Coli sensitive to Augmentin. -first dose today will continue for 7 days. (2) Hypertension: Qualifiers: Hypertension type: unspecified Qualified Code(s): I10 - Essential (primary) hypertension Code(s): I10 - Essential (primary) hypertension Status: Chronic Assessment and Plan: Stable on current medication, continue current treatment. (3) Paroxysmal atrial fibrillation: Code(s): I48.0 - Paroxysmal atrial fibrillation Status: Acute Assessment and Plan: Stable on current medication, continue current treatment (4) Hypothyroid: Qualifiers: Hypothyroidism type: unspecified Qualified Code(s): E03.9 - Hypothyroidism, unspecified Code(s): E03.9 - Hypothyroidism, unspecified Status: Acute Assessment and Plan: Stable on current medication, continue current treatment Plan Code status full. DVT prophylaxis Eliquis. Disposition - Discharge back to longterm in AM if labs are stable on augmentin. Time Spent With Patient Time: spoke in great detail with daughter orly. Patient has history of UTI that cuased sepsis, patient riley been hospitalized often at [facility], she stated he has gone home from the hospital and been sent back septic or in shock. She was not comfortable with discharge today, so after long conversation. patient has only had one dose of oral antibiotic, comfortable with over night, recheck labs. Will check iron levels due to history. Patient can discharge back to [facility] in the AM. Time with patient: Greater than 35 minutes Subjective Date/time seen: 01/17/25 13:53 Interval history: Patient is sitting at bedside, states this morning he had a moment where he felt off, but he feels okay. Patient is feeling better today than he has. No shortness of breath or chest pain. No abdominal pain, nausea, no vomiting. Review of Systems Review of Systems: the history and physical exam. All systems reviewed & are unremarkable except as noted in HPI and below Exam Narrative: APPEARANCE: normal appearance, no signs of distress. HEAD: normocephalic, atraumatic. EYES: PERRLA/EOMI, conjunctivae clear. NOSE: Normal no drainage EARS:TMS clear with good light reflex. THROAT: Pharynx clear, no exudate. NECK: Supple. No adenopathy, no masses. RESPIRATORY: Airway patent, respirations nonlabored. Clear to auscultation bilaterally, no rales, rhonchi, wheezing. CARDIOVASCULAR: Regular rate and rhythm without murmurs rubs or gallops. ABDOMINAL: Ostomy intact role. MUSCULOSKELETAL: Moves all extremities. Strength/ROM intact, No edema, No calf tenderness. NEURO: Alert but disoriented. Cranial nerves II through XII intact. SKIN: Warm, dry. Normal Color Objective Data Vital Signs Vital Signs: Vital Signs - 24 hr 01/16/25 14:00 01/16/25 20:00 01/16/25 21:09 Temperature 96.5 F L 97.6 F Pulse Rate 74 77 Respiratory Rate 20 18 Blood Pressure 118/56 L 134/63 Pulse Oximetry 98 98 Oxygen Delivery Room Air 01/17/25 05:23 01/17/25 08:00 01/17/25 08:28 Temperature 97.5 F L Pulse Rate 73 58 L Respiratory Rate 20 16 Blood Pressure 137/56 L Pulse Oximetry 98 97 Oxygen Delivery Room Air Room Air 01/17/25 08:28 01/17/25 12:45 Temperature Pulse Rate 58 L 73 Respiratory Rate 16 Blood Pressure 140/50 L Pulse Oximetry 99 Oxygen Delivery Intake/Output Intake/Output: Intake & Output 01/14/25 01/15/25 01/16/25 01/17/25 23:59 23:59 23:59 23:59 Intake Total 530 1862 2700 1380 Output Total 1250 1225 1900 2600 Balance -720 637 800 -1220 Meds/Results Medications: Active Medications Generic Name Dose Route Start Last Admin Trade Name Freq PRN Reason Stop Dose Admin Acetaminophen 1,000 mg 01/14/25 09:49 Acetaminophen 500 Mg Tablet PO Q6H PRN pain Amoxicillin/Clavulanate Potassium 1 tablet 01/17/25 10:00 01/17/25 09:46 Amoxicillin/Clavulanate K 875-125 Mg Tab PO 01/20/25 21:01 1 tablet Q12HR [facility] Administration Apixaban 5 mg 01/14/25 09:00 01/17/25 08:01 Apixaban 5 Mg Tablet PO 5 mg Q12HR [facility] Administration Ascorbic Acid 500 mg 01/14/25 09:00 01/17/25 08:01 Ascorbic Acid 500 Mg Tablet PO 500 mg QAM [facility] Administration Atorvastatin Calcium 10 mg 01/14/25 21:00 01/16/25 20:02 Atorvastatin 10 Mg Tablet PO 10 mg HS [facility] Administration Baclofen 15 mg 01/14/25 12:00 01/17/25 12:33 Baclofen 5 Mg Tablet PO 15 mg 0800,1200,1600,2000 [facility] Administration Calcium Carbonate 200 mg 01/14/25 13:00 01/17/25 12:50 Calcium Carbonate (Tums) 500 Mg (200 Mg Elemental) PO 200 mg TID [facility] Administration Cyanocobalamin 1,000 mcg 01/14/25 09:00 01/17/25 08:01 Cyanocobalamin 1,000 Mcg Tablet PO 1,000 mcg DAILY [facility] Administration Diclofenac Sodium 1 applic 01/14/25 09:00 01/17/25 08:02 Diclofenac Sodium 1% 100 Gm Gel (*Bkc) TOPICAL 1 applic BID [facility] Administration Diltiazem HCl 30 mg 01/14/25 13:00 01/17/25 12:54 Diltiazem Hcl 30 Mg Tablet PO Not Given TID [facility] Docusate Sodium 100 mg 01/14/25 09:49 Docusate Sodium 100 Mg Capsule PO BID PRN constipation Ferrous Sulfate 325 mg 01/14/25 09:00 01/17/25 08:01 Ferrous Sulfate [address] PO 325 mg BID [facility] Administration Fluticasone/Umeclidinium/Vilanterol 1 puff 01/14/25 08:00 01/17/25 08:27 Fluticasone/Umeclidin/Vilanter 100-62.5-25 Mcg Ellipta INHALATION 1 puff DAILYRT [facility] Administration Gabapentin 200 mg 01/14/25 21:00 01/16/25 20:03 Gabapentin 100 Mg Capsule PO 200 mg HS [facility] Administration Guaifenesin 400 mg 01/14/25 21:00 01/16/25 20:04 Guaifenesin 200 Mg/10 Ml Udc PO 400 mg QHS [facility] Administration Guaifenesin/Dextromethorphan 1 tab 01/14/25 09:49 Guaifenesin 600 Mg/Dextromethorphan 30 Mg Sr Tab 12 Hr PO Q12H PRN cough Levothyroxine Sodium 25 mcg 01/15/25 06:30 01/17/25 05:36 Levothyroxine Sodium 25 Mcg Tablet PO 25 mcg DAILY@0630 [facility] Administration Lidocaine 1 patch 01/17/25 09:00 01/17/25 11:01 Lidocaine 5% Patch TRANSDERM 1 patch DAILY [facility] Administration Loratadine 10 mg 01/14/25 10:21 Loratadine 10 Mg Tablet PO DAILY PRN Allergy Symptoms Meclizine HCl 12.5 mg 01/14/25 09:49 Meclizine Hcl 12.5 Mg Tablet PO TID PRN Dizziness Or Vertigo Melatonin 5 mg 01/14/25 21:00 01/16/25 20:05 Melatonin 5 Mg Tablet PO Not Given QHS [facility] Montelukast Sodium 10 mg 01/14/25 21:00 01/16/25 20:02 Montelukast Sodium 10 Mg Tablet PO 10 mg QHS [facility] Administration Multi-Ingred Cream/Lotion/Oil/Oint 1 applic 01/14/25 09:49 01/14/25 10:31 Eucerin Cream 120 Gm Jar TOPICAL 1 applic DAILY PRN Administration Dry Skin Multivitamins Therapeutic 1 tablet 01/14/25 09:00 01/17/25 08:01 Multivitamins Therapeutic Tab (*Bkc) PO 1 tablet DAILY [facility] Administration Pantoprazole Sodium 40 mg 01/14/25 09:00 01/17/25 08:01 Pantoprazole 40 Mg Tablet PO 40 mg QAM [facility] Administration Polyethylene Glycol 17 gm 01/14/25 18:00 01/16/25 17:49 Polyethylene Glycol 3350 17 Gm Powd.Pack PO Not Given QPM [facility] Simethicone 80 mg 01/14/25 09:49 Simethicone 80 Mg Tab.Chew PO Q6H PRN Abdominal Discomfort Sodium Chloride 1 applic 01/14/25 13:00 01/17/25 12:36 Sodium Chloride 5% Ophth Oint 3.5 Gm Tube EACH EYE Not Given QID [facility] Vitamin D 25 mcg 01/14/25 09:00 01/17/25 08:01 Cholecalciferol (Vitamin D3) 25 Mcg (1,000 Units) Tablet PO 25 mcg DAILY [facility] Administration Radiology Results: ITS Impressions Chest X-Ray 01/13/25 20:59 IMPRESSION: No focal infiltrate or effusion. Head CT 01/17/25 12:47 IMPRESSION: 1. Normal aging brain. No acute intracranial process. Labs Labs: Laboratory Results - last 24 hr 01/15/25 06:43 WBC 9.1 RBC 3.18 L Hgb 8.9 L Hct 27.7 L MCV 87.1 MCH 28.0 MCHC 32.1 RDW 15.9 H Plt Count 199 MPV 9.5 Immature Gran % (Auto) 0.4 Neut % (Auto) 66.8 Lymph % (Auto) 17.2 L [place] % (Auto) 9.6 H Eos % (Auto) 5.4 H Baso % (Auto) 0.6 Lymph # (Auto) 1.56 [place] # (Auto) 0.9 H Eos # (Auto) 0.5 H Baso # (Auto) 0.1 Abs Immat Gran (auto) 0.04 H Absolute Neuts (auto) 6.1 Absolute Nucleated RBC 0.000 Nucleated RBC % 0.0 Sodium 134 L Potassium 4.2 Chloride 107 Carbon Dioxide 17 L Anion Gap 10 BUN 38 H Creatinine 1.58 H Estim Creat Clear Calc 53 Estimated GFR 43 L Glucose 93 Calcium 8.6 Total Bilirubin 0.6 AST 22 ALT 17 Alkaline Phosphatase 153 H Total Protein 7.4 Albumin 3.5 Quality VTE Prophylaxis VTE prophylaxis: pharmacologic ordered Hospitalist MIPS Advance Care Plan I have confirmed that the patient's Advanced Care Plan is present, code status is documented, or surrogate decision maker is listed in patient medical record.: Yes Medication Reconciliation I have utilized all available resources to obtain, update and review the patients current medications (includes all prescriptions, OTC, herbals, cannabis, and nutritional supplements).: Yes
[2025-01-17 14:00] VITALS: BP 157/62; PULSE 73; RESP 18; TEMP 36.1; O2SAT 98
[2025-01-17 14:41] LABS: Hematocrit 27.1 % (42.0-52.0); Hemoglobin 9.0 g/dL (14.0-18.0); Immature Granulocyte Percent A 0.6 % (0-0.5); Lymphocytes Absolute Auto 1.14 K/mm3 (0.9-3.2); Mean Corpuscular HGB Conc 33.2 g/dl (32-36); Mean Corpuscular Hemoglobin 28.0 pg (26-34); Mean Corpuscular Volume 84.2 fl (80-100); Nucleated Red Blood Cells Absolute Auto 0.000 K/mm3 (0.0-0.012); Nucleated Red Blood Cells Perc 0.0 % (0.0-0.2); Platelet Count Result 197 k/mm3 (150-375); Red Blood Count 3.22 M/mm3 (4.6-6.20); White Blood Count 12.2 K/mm3 (4.5-10.0)
[2025-01-17 14:53] LABS: Alanine Aminotransferase 13 U/L (6-50); Albumin Level 3.4 g/dL (3.5-5.1); Alkaline Phosphatase 134 U/L (38-126); Anion Gap 9 mmol/L (4-12); Aspartate Amino Transferase 17 U/L (17-59); Bilirubin,Total 0.4 mg/dL (0.2-1.3); Blood Urea Nitrogen 35 mg/dL (9-20); Calcium 8.7 mg/dL (8.4-10.2); Carbon Dioxide 17 mmol/L (22-30); Chloride 107 mmol/L (98-107); Estimated CRCL calculation 55 ml/min; Estimated Glomerular Filt Rate 45; Glucose 111 mg/dL (65-110); Potassium 4.6 mmol/L (3.4-5.0); Sodium 133 mmol/L (137-145); Total Protein 7.3 g/dL (6.3-8.2)
[2025-01-17 14:54] LABS: Iron 46 ug/dL (49-181)
[2025-01-17 15:03] LABS: Percent Iron Saturation 22 % (20-50)
[2025-01-17 15:30] LABS: Ferritin 336.00 ng/mL (11.1-264)
[2025-01-17] MEDS: LORATADINE 10 MG TABLET PO (16:35)
[2025-01-17] MEDS: ACETAMINOPHEN 500 MG TABLET 1000 MG PO (16:35)
[2025-01-17 17:15] VITALS: BP 136/80; PULSE 70; O2SAT 98
[2025-01-17] MEDS: GABAPENTIN 100 MG CAPSULE 200 MG PO (20:27)
[2025-01-17] MEDS: ATORVASTATIN 10 MG TABLET PO (20:27)
[2025-01-17] MEDS: MONTELUKAST SODIUM 10 MG TABLET PO (20:27)
[2025-01-17 21:04] VITALS: BP 128/56; PULSE 71; RESP 18; TEMP 36.3; O2SAT 100
[2025-01-18] MEDS: LEVOTHYROXINE SODIUM 25 MCG TABLET PO (05:20)
[2025-01-18 05:39] VITALS: BP 151/62; PULSE 75; RESP 18; TEMP 36.3; O2SAT 95
[2025-01-18 06:16] LABS: Hematocrit 28.0 % (42.0-52.0); Hemoglobin 9.1 g/dL (14.0-18.0); Immature Granulocyte Percent A 0.5 % (0-0.5); Lymphocytes Absolute Auto 1.59 K/mm3 (0.9-3.2); Mean Corpuscular HGB Conc 32.5 g/dl (32-36); Mean Corpuscular Hemoglobin 27.4 pg (26-34); Mean Corpuscular Volume 84.3 fl (80-100); Nucleated Red Blood Cells Absolute Auto 0.000 K/mm3 (0.0-0.012); Nucleated Red Blood Cells Perc 0.0 % (0.0-0.2); Platelet Count Result 210 k/mm3 (150-375); Red Blood Count 3.32 M/mm3 (4.6-6.20); White Blood Count 11.0 K/mm3 (4.5-10.0)
[2025-01-18 06:27] LABS: Alanine Aminotransferase 13 U/L (6-50); Albumin Level 3.5 g/dL (3.5-5.1); Alkaline Phosphatase 163 U/L (38-126); Anion Gap 10 mmol/L (4-12); Aspartate Amino Transferase 16 U/L (17-59); Bilirubin,Total 0.6 mg/dL (0.2-1.3); Blood Urea Nitrogen 35 mg/dL (9-20); Calcium 8.9 mg/dL (8.4-10.2); Carbon Dioxide 17 mmol/L (22-30); Chloride 105 mmol/L (98-107); Estimated CRCL calculation 58 ml/min; Estimated Glomerular Filt Rate 48; Glucose 91 mg/dL (65-110); Potassium 4.6 mmol/L (3.4-5.0); Sodium 132 mmol/L (137-145); Total Protein 7.7 g/dL (6.3-8.2)
[2025-01-18] MEDS: FLUTICASONE/UMECLIDIN/VILANTER 100-62.5-25 MCG ELLIPTA 1 PUFF INHALATION (08:56)
[2025-01-18 08:57] VITALS: PULSE 61; RESP 18
[2025-01-18 09:09] VITALS: PULSE 63; RESP 18
[2025-01-18] MEDS: BACLOFEN 5 MG TABLET 15 MG PO ×2 (09:20→12:17)
[2025-01-18] MEDS: CYANOCOBALAMIN 1,000 MCG TABLET 1000 MCG PO (09:21)
[2025-01-18] MEDS: CHOLECALCIFEROL (VITAMIN D3) 25 MCG (1,000 UNITS) TABLET PO (09:21)
[2025-01-18] MEDS: APIXABAN 5 MG TABLET PO (09:21)
[2025-01-18] MEDS: ASCORBIC ACID 500 MG TABLET PO (09:21)
[2025-01-18] MEDS: CALCIUM CARBONATE (TUMS) 500 MG (200 MG ELEMENTAL) PO ×2 (09:21→12:17)
[2025-01-18] MEDS: MULTIVITAMINS THERAPEUTIC TAB (*BKC) 1 TABLET PO (09:22)
[2025-01-18] MEDS: PANTOPRAZOLE 40 MG TABLET PO (09:22)
[2025-01-18] MEDS: FERROUS SULFATE 325 MG TABLET DR PO (09:22)
[2025-01-18] MEDS: LIDOCAINE 5% PATCH 1 PATCH TRANSDERM (09:23)
[2025-01-18] MEDS: ACETAMINOPHEN 500 MG TABLET 1000 MG PO (09:23)
[2025-01-18] MEDS: LORATADINE 10 MG TABLET PO (09:23)
[2025-01-18] MEDS: DICLOFENAC SODIUM 1% 100 GM GEL (*BKC) 1 APPLIC TOPICAL (09:35)
[2025-01-18 09:37] VITALS: BP 130/48; PULSE 72
--- NOTE | 2025-01-18 10:35 | P.DS_ITS ---
DS: Admitting Diagnosis Discharge Date 01/18/2025 Admitting Diagnosis Complicated UTI DS: Discharge Diagnosis Discharge Diagnosis (1) Urinary tract infection: Code(s): N39.0 - Urinary tract infection, site not specified Status: Acute (2) Hypertension: Qualifiers: Hypertension type: unspecified Qualified Code(s): I10 - Essential (primary) hypertension Code(s): I10 - Essential (primary) hypertension Status: Chronic (3) Paroxysmal atrial fibrillation: Code(s): I48.0 - Paroxysmal atrial fibrillation Status: Acute (4) Hypothyroid: Qualifiers: Hypothyroidism type: unspecified Qualified Code(s): E03.9 - Hypothyroidism, unspecified Code(s): E03.9 - Hypothyroidism, unspecified Status: Acute DS: Summary Hospital Course Reason for hospitalization: complicated UTI with chronic indwelling Cowan catheter Hospital Course: Admission: Mr. Sanchez is 74 years old male history of paraplegia, chronic Cowan catheter indwelling, COPD, osteomyelitis, renal insufficiency, and atrial fibrillation came to the emergency room with complaints that he is not feeling good for the last few days. According to the family was also confused. However patient denies any shortness of breath or chest pain. Patient also denies nausea vomiting her diarrhea. Patient is on the ER evaluation was found to have urine tract infection. Patient was given IV antibiotics and cultures were drawn. Patient was transferred to floor for further evaluation treatment. Hospital course: patient was admitted to the medical unit on IV antibiotic therapy pending final urinary cultures which did show Klebsiella oxytoca and E coli. Patient initially on IV cefepime and was transitioned to Augmentin to cover both bacteria is per sensitivities. Per family initially had some confusion however patient at baseline at time of discharge labs reviewed at his baseline and vitals stable. Urinary catheter was exchanged in the emergency department and patient follows with Urology outpatient. patient was seen and assessed time of discharge with no complaints and in no acute distress remained afebrile. Patient discharged back to SNF with indwelling Cowan catheter plans for exchange every 2 weeks and oral Augmentin to complete his antibiotic therapy. Status at Discharge Functional status at discharge: uses cane/walker Overall status at discharge: patient is progressing back to baseline Time Spent with Patient Time attestation: Total time spent providing and/or coordinating discharge services: Time spent: Less than 30 minutes Exam Narrative: General: normal appearance, no signs of distress. HEAD: normocephalic, atraumatic. EYES: PERRLA/EOMI, conjunctivae clear. RESPIRATORY: Airway patent, respirations nonlabored. Clear to auscultation bilaterally, no rales, rhonchi, wheezing. CARDIOVASCULAR: Regular rate and rhythm without murmurs rubs or gallops. : Cowan catheter draining clear yellow urine ABDOMINAL: Ostomy intact role. MUSCULOSKELETAL: Moves all extremities. Strength/ROM intact, No edema, No calf tenderness. NEURO: Alert but disoriented. Cranial nerves II through XII intact. SKIN: Warm, dry. Normal Color DS: Data Data Completed and Pending Labs on day of discharge: Labs from last 24 hours 01/18/25 01/17/25 05:51 14:35 WBC 11.0 H 12.2 H RBC 3.32 L 3.22 L Hgb 9.1 L 9.0 L Hct 28.0 L 27.1 L MCV 84.3 84.2 MCH 27.4 28.0 MCHC 32.5 33.2 RDW 15.9 H 15.7 H Plt Count 210 197 MPV 9.5 8.7 Immature Gran % (Auto) 0.5 0.6 H Neut % (Auto) 71.0 77.7 H Lymph % (Auto) 14.5 L 9.3 L Burnett % (Auto) 6.1 7.4 Eos % (Auto) 7.7 H 4.8 H Baso % (Auto) 0.2 0.2 Lymph # (Auto) 1.59 1.14 Burnett # (Auto) 0.7 H 0.9 H Eos # (Auto) 0.8 H 0.6 H Baso # (Auto) 0.0 0.0 Abs Immat Gran (auto) 0.06 H 0.07 H Absolute Neuts (auto) 7.8 H 9.5 H Absolute Nucleated RBC 0.000 0.000 Nucleated RBC % 0.0 0.0 Sodium 132 L 133 L Potassium 4.6 4.6 Chloride 105 107 Carbon Dioxide 17 L 17 L Anion Gap 10 9 BUN 35 H 35 H Creatinine 1.44 H 1.53 H Estim Creat Clear Calc 58 55 Estimated GFR 48 L 45 L Glucose 91 111 H Calcium 8.9 8.7 Iron 46 L TIBC 205 L % Saturation 22 Ferritin 336.00 H Total Bilirubin 0.6 0.4 AST 16 L 17 ALT 13 13 Alkaline Phosphatase 163 H 134 H Total Protein 7.7 7.3 Albumin 3.5 3.4 L Imaging Radiologist's impression: EXAMINATION: CT brain wo con DATE: 01/17/2025 12:45 INDICATION: Lightheadedness TECHNIQUE: Computed tomography (CT) of the head was performed without intravenous contrast. Sagittal and coronal reconstructions were performed. The mA was adjusted according to patient size. Iterative reconstruction technique was employed. The dose-length product was 605.33 mGy-cm. COMPARISON: head CT dated 01/13/2025 FINDINGS: No acute intracranial hemorrhage, acute infarction or abnormal extra axial fluid collection. There is mild scattered white matter hypoattenuation consistent with chronic small vessel ischemic disease. Symmetric prominence of the sulci consistent with mild age-appropriate diffuse cerebral volume loss. Ventricles are normal and symmetric. No mass/mass effect. Changes of bilateral intraocular lens replacement. The orbits and mastoid air cells are normal. Small mucous retention cyst in the right maxillary sinus. Intracranial calcified cerebral atherosclerosis is noted. IMPRESSION: 1. Normal aging brain. No acute intracranial process. Discharge Plan Discharge Attending physician on discharge: Sarthak Cotter Consulting providers: Obi Larsen; Marcella Richardson; Lois Crandall; Juan Manuel Hinojosa; Yesenia Barrios Rafe M.; Barbara Real; Tyrese Barrera; Jennifer St; Tomas Shin Discharging Clinician: Marcella Richardson Anticipated Discharge Date/Time: 01/17/25 11:42 Patient Disposition: SNF Activity: as tolerated Diet: heart healthy Discharge Instructions: 1). UTI * Continue with augmentin BID As prescribed and complete even if feeling better * Increase water intake * Follow up with PCP in the next 1-3 days * cowan catheter care * Follow-up with Urology as scheduled How can you care for yourself at home? ? Keep track of any new symptoms or changes in your symptoms. ? Rest until you feel better. ? Be safe with medicines. Take your medicines exactly as prescribed. Call your doctor if you think you are having a problem with your medicine. ? Do not drive after taking a prescription pain medicine. ? Ensure to follow-up with primary care physician as indicated and provide updated medication list provided to you at discharge. When should you call for help? Call 911 anytime you think you may need emergency care. For example, call if: ? You passed out (lost consciousness). Call your doctor now or seek immediate medical care if: ? You have new symptoms like fever, difficulty breathing, Chest pain, vomiting, or rash. ? You have new or different pain. ? You are confused and are having trouble thinking clearly. ? Your symptoms are getting worse. Watch closely for changes in your health, and be sure to contact your doctor if: ? You do not get better as expected. Patient Instructions: Apixaban (By mouth), Heart Failure (GEN), Cowan Catheter Placement and Care (DC), Catheter-associated Urinary Tract Infection (DC) Patient Language: Romanian Stand Alone Forms: General Discharge Information, [facility] Discharge Follow-up/Referrals: PHYSICIAN,LEGAL LIBRARIAN [Primary Care Provider] - (Primary MD as per prior to arrival) Discharge Medications: New amoxicillin-pot clavulanate 875-125 mg tablet 1 tablet PO Q12H 7 Days Qty: 5 0RF Continued Zyrtec 10 mg capsule 10 mg PO DAILY PRN (Reason: Allergy Symptoms) multivitamin Tablet 1 tablet PO DAILY gabapentin 100 mg capsule 200 mg PO DAILY melatonin 5 mg capsule 5 mg PO QHS omeprazole 20 mg capsule,delayed release(DR/EC) 20 mg PO DAILY simethicone [Gas Relief (simethicone)] 80 mg tablet,chewable 80 mg PO Q6H PRN (Reason: Abdominal Discomfort) Rx Instructions: after meals montelukast [Singulair] 10 mg tablet 10 mg PO QHS baclofen 10 mg tablet 15 mg PO QID Rx Instructions: 0800,1200,1600,2000 acetaminophen 500 mg capsule 1,000 mg PO Q6H PRN (Reason: pain) Patient Comments: ... guaifenesin 400 mg tablet 400 mg PO QHS diphenhydramine HCl [Allergy (diphenhydramine)] 25 mg capsule 25 mg PO Q6H PRN (Reason: allergy symptoms) cyanocobalamin (vitamin B-12) 1,000 mcg tablet 1,000 mcg PO DAILY calcium carbonate [Antacid (calcium carbonate)] 200 mg calcium (500 mg) ta blet,chewable 200 mg PO TID diclofenac sodium [Voltaren Arthritis Pain] 1 % gel 2 g topical BID Rx Instructions: apply to single elbow, wrist or hand; for hand includes palm/fingers/back of hand Mucinex DM 30-600 mg tablet extended release 12 hr 1 tablet PO Q12H PRN (Reason: cough) sodium chloride [Vanessa 128] 5 % ointment 1 applic EACH EYE QID Airsupra 90-80 mcg/actuation HFA aerosol inhaler 2 inh inhalation ONCE Patient Comments: . Rx Instructions: as a single dose; may repeat up to 6 doses per day (12 inhalations) Breztri Aerosphere 160-9-4.8 mcg/actuation HFA aerosol inhaler 2 inh inhalation BID ferrous sulfate 325 mg (65 mg iron) Tablet 325 mg PO BID ascorbic acid (vitamin C) 500 mg Capsule, Extended Release 500 mg PO DAILY polyethylene glycol 3350 [Miralax] 17 gram Powder In Packet 17 g PO QPM meclizine 12.5 mg Tablet 12.5 mg PO TID PRN (Reason: Dizziness Or Vertigo) Eucerin Cream 1 applic TOPICAL DAILY PRN (Reason: Dry Skin) naloxone [Narcan] 4 mg/actuation [place],Non-Aerosol 4 mg INTRANASAL Q3M PRN (Reason: Congestion) Rx Instructions: spray 1 dose into ONE nostril; alternate nostrils w each dose until help arrives Eliquis 5 mg tablet 5 mg PO BID levothyroxine 25 mcg tablet 25 mcg PO DAILY cholecalciferol (vitamin D3) 1,000 units 25 mcg PO DAILY diltiazem HCl 30 mg tablet 30 mg PO TID Patient Comments: Called retirement they said medication is PRN but could not give me an indication. Rx Instructions: HOLD IF HR<50 OR SBP<100 docusate sodium [Colace] 100 mg capsule 100 mg PO BID PRN (Reason: constipation) LidozenPatch(lido HCl-menthol) 4-1 % adhesive patch,medicated 1 patch topical DAILY Patient Comments: uses 2 patches to right shoulder Rx Instructions: may leave on area for up to 8 hrs atorvastatin 10 mg Tablet 10 mg PO HS ipratropium bromide 0.02 % solution 2.5 ml inhalation TID Date of admission: 01/14/25 08:53 Primary Care Provider: PHYSICIAN,LEGAL LIBRARIAN Admitting Provider: Isaak Chacon Attending physician on admission: Sarthak Cotter Condition: Stable Quality VTE Prophylaxis VTE prophylaxis: pharmacologic ordered Hospitalist MIPS Heart Failure (Exclusion) Patient has history of Heart Transplant or Left Ventricular Assistive Device?: No IF YES, STOP HERE Heart Failure (Qualifier) Patient has current or prior documentation of LVEF less than or equal to 40%, or mod/servere depressed LVSF?: No IF NO, STOP HERE
[2025-01-18 12:15] VITALS: BP 151/60; PULSE 77
[2025-01-18 13:53] VITALS: BP 142/71; PULSE 76; RESP 18; TEMP 35.7; O2SAT 98
== END 2025-01-18 16:30 | DRG 699 ==
LOC: ANHED 22:12 → ANH3MEDSUR 23:30
PROVIDERS: Internal Medicine; Nurse Practitioner Family; Registered Nurse; Admitting Provider Internal Medicine; Emergency Provider Emergency Medicine; Visit Provider Family Medicine
DX: T83.511A Infection and inflammatory reaction due to indwelling urethral catheter, initial encounter (principal); G82.22 Paraplegia, incomplete; I50.32 Chronic diastolic (congestive) heart failure; J96.11 Chronic respiratory failure with hypoxia; J44.9 Chronic obstructive pulmonary disease, unspecified; I11.0 Hypertensive heart disease with heart failure; I48.0 Paroxysmal atrial fibrillation; I73.9 Peripheral vascular disease, unspecified; E03.9 Hypothyroidism, unspecified; E53.8 Deficiency of other specified B group vitamins; N31.9 Neuromuscular dysfunction of bladder, unspecified; K21.9 Gastro-esophageal reflux disease without esophagitis; G62.9 Polyneuropathy, unspecified; Z99.81 Dependence on supplemental oxygen; Z79.01 Long term (current) use of anticoagulants; Z93.3 Colostomy status; Z89.412 Acquired absence of left great toe; Z87.891 Personal history of nicotine dependence
CPT/HCPCS: 36415; 70450; 71045; 80053; 81001; 82728; 82803; 82948; 83540; 83550; 85025; 85610; 85730; 87086; 87186; 93005; 94640; 96361; 96365; 99285; A9270; G0378; J0692; J7120

== ENCOUNTER 2025-02-19 10:39 | Inpatient (IN) | payer MEDICARE, BC, MEDICAID, SELFPAY ==
[2025-02-19] VITALS (13 sets, daily range): BP systolic 137–179; BP diastolic 54–75; PULSE 77–101; RESP 14–22; TEMP 35.8–36.8; O2SAT 97–100
--- NOTE | ~2025-02-19 | XR_ITS ---
EXAMINATION: XR chest 1V DATE: 02/19/2025 12:30 INDICATION: Altered mental status TECHNIQUE: frontal view of the chest was obtained. COMPARISON: Chest radiograph dated 01/13/2025 FINDINGS: The lungs are clear with no focal airspace opacities, pulmonary edema, pleural effusion or pneumothor ax. Heart size is normal with small left paracardial fat pad. Median sternotomy wires. IMPRESSION: 1. No acute cardiopulmonary disease. Reviewed, dictated and finalized at location A.
--- NOTE | ~2025-02-19 | CT_ITS ---
EXAMINATION: CT brain wo con DATE: 02/19/2025 12:22 INDICATION: Altered mental status TECHNIQUE: Computed tomography (CT) of the head was performed without intravenous contrast. Sagittal and coronal reconstructions were performed. Automated exposure control and iterative reconstruction t echnique were employed. The dose-length product was 681.00 mGy-cm. COMPARISON: head CT dated 01/17/2025 FINDINGS: No acute intracranial hemorrhage, acute infarction or abnormal extra axial fluid collection. Stable a ppearance of mild scattered white matter hypoattenuation consistent with chronic small vessel ischemi c disease. Symmetric prominence of the sulci consistent with mild age-appropriate diffuse cerebral vo lume loss. Ventricles are normal and symmetric. No mass/mass effect. Changes of bilateral intraocular lens replacement. The orbits and mastoid air cells are normal. Small mucous retention cyst in the ri ght maxillary sinus. Intracranial calcified cerebral atherosclerosis is noted. IMPRESSION: 1. Normal aging brain. No acute intracranial process. Reviewed, dictated and finalized at location A.
--- NOTE | 2025-02-19 10:48 | ECG_ITS ---
Test Date: 2025-02-19 11:00:25 Measurements Intervals [place] Rate: 77 P: 69 [place]: 158 QRS: 2 QRSD: 109 T: 5 QT: 384 QTc: 436 Interpretive Statements SINUS RHYTHM WITH OCCASIONAL VENTRICULAR PREMATURE COMPLEXES INFERIOR INFARCT, AGE INDETERMINATE ABNORMAL ECG Compared to ECG 01/13/2025 19:48:47 NO SIGNIFICANT CHANGE Electronically Signed On 02-19-2025 16:19:28 CDT by Wang Bhagat D.O.
[2025-02-19 11:17] LABS: Alveolar/Arterial O2 Gradient 31.7 mmHg; Carboxyhemoglobin 0.5 % THb (0-2.0); Fractional Inspired Oxygen 28 %; HCO3 ABG 26.5 mEq/l (22.0-26.0); Methemoglobin ABG 0.5 %THb (0-1.5); Oxygen Content ABG 12.0 %vol (16.0-22.0); Oxygen Saturation ABG 98.2 % (95.0-100.0); PCO2 ABG 44.6 mmHg (35.0-45.0); PO2 ABG 115.3 mmHg (80.0-100.0); PO2 FiO2 Ratio Arterial Blood 4.12 %; Reduced Hemoglobin 2.0 %THb (0-5.0)
[2025-02-19 11:18] LABS: Liters per Minute 2.0 LPM; Modified Allen's Test Pass; Site Drawn RIGHT RADIAL
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
--- OUTSIDE RECORDS SUMMARY | 2025-02-19 11:51 | XMS_ITS | Clinical Summary ---
Author Organization [facility] Address [address] [place] [id number] Phone Care Team Providers Care Shearing Machine Tender Name Role Phone Ba Ramirez MD Primary Care Provider [phone] Allergies Active Allergy Reactions Criticality Noted Date Comments Codeine Hallucinations 12/07/2018 Morphine Other (see comments) 12/07/2018 Gets extremely violent on this medication Medications acetaminophen (TYLENOL) 325 MG tablet Take 650 mg by mouth Active Apixaban 2.5 MG tablet Take 2.5 mg by mouth 2 times daily Active ascorbic acid (VITAMIN C) 500 MG tablet Take 500 mg by mouth daily 0 Active atorvastatin (LIPITOR) 10 MG tablet Take 10 mg by mouth 0 Active calcium carbonate (TUMS) 500 MG chewable tablet Chew 500 mg 0 Active clotrimazole (LOTRIMIN) 1 % cream Apply topically 3 times daily Active dilTIAZem (CARDIZEM) 30 MG immediate release tablet Take 30 mg by mouth 3 times daily 0 Active ferrous sulfate 325 (65 Fe) MG tablet Take 325 mg by mouth 0 Active furosemide (LASIX) 40 MG tablet Take 40 mg by mouth daily 0 Active hydrocortisone 2.5 % cream Apply topically 2 times daily Active hydrOXYzine (ATARAX) 25 MG tablet Take 0.5 tablets by mouth Active ipratropium-alb uterol (DUO-NEB) 0.5-2.5 mg/3 mL nebulizer solution Inhale 3 mL 9 Active loratadine (CLARITIN) 10 MG tablet Take 10 mg by mouth daily 0 Active Multiple Vitamin (multivitamin) capsule Take 1 capsule by mouth daily 0 Active nystatin (MYCOSTATIN) 484641 UNIT/GM powder Apply topically 2 times daily Active Petrolatum-Zinc Oxide 57-17 % paste Apply topically 3 times daily Active umeclidinium-vi lanterol (ANORO ELLIPTA) 62.5-25 MCG/INH aerosol powder Inhale 1 puff 0 Active Zinc Sulfate 220 (50 Zn) MG tablet Take 220 mg by mouth 0 Active baclofen (LIORESAL) 10 MG tablet 2 Active omeprazole (PriLOSEC) [address] capsule 2 Active albuterol (2.5 MG/3ML) 0.083% nebulizer solution 2 Active budesonide (PULMICORT) 0.5 MG/2ML nebulizer solution 2 Active Diclofenac Sodium 1 % gel 2 Active fluticasone (FLONASE) 50 MCG/ACT nasal spray 2 Active levothyroxine sodium (TIROSINT) 13 MCG capsule 2 Active montelukast (SINGULAIR) 10 MG tablet 2 Active pregabalin (LYRICA) 75 MG capsule 2 Active Active Problems Problem Noted Date Diagnosed Date Anemia co-occurrent and due to chronic kidney disease stage 3 03/17/2022 Abnormal posture 08/11/2019 Atrophy of thyroid - acquired 08/11/2019 Chronic combined systolic and diastolic heart fa ilure 08/11/2019 Chronic obstructive pulmonary disease 08/11/2019 Drug-induced dystonia 08/11/2019 Essential hypertension 08/11/2019 Iron deficiency anemia 08/11/2019 Long-term current use of anticoagulant 0 Muscle weakness 08/11/2019 Pressure ulcer of buttock stage 2 08/11/2019 Overview (12/03/2020): Bilateral butt & gluteal folds Vitamin D deficiency 08/11/2019 Body mass index 40+ - severely obese 11/11/2018 Overview (12/03/2020): Last Assessment & Plan: BMI 44. The weight loss recommended. Patient will need sleep study testing to rule out sleep apnea. Gastroesophageal reflux disease 11/11/2018 Overview (12/03/2020): Last Assessment & Plan: Start on pantoprazole Mixed hyperlipidemia 11/11/2018 Overview (12/03/2020): Last Assessment & Plan: On statin . Neuropathy 11/11/2018 Overview (12/03/2020): Last Assessment & Plan: Continue gabapentin Arthritis 11/21/2013 Immunizations Immunization Administration Dates Next Due Influenza TIV (IM) 04/19/2019 Influenza, Injectable, Quadrivalent 02/28/2014 Pfizer Sars-cov-2 Vaccination 08/11/2020 Pneumococcal Conjugate 13-Valent 06/07/2015 Pneumococcal Polysaccharide 08/15/2019, 4 Tdap 06/07/2015 Family History Medical History Relation Comments Stroke Father Diabetes mellitus Mother Hypertension Mother Relation Status Comments Father Mother Social History Tobacco Use Types Packs/Day Years Used Date Smoking Tobacco: Former Smokeless Tobacco: Former Chew Tobacco Cessation:Counseling Given: Not Answered Alcohol Use Standard Drinks/Week Comments Not Currently 0 (1 standard drink = 0.6 oz pur e alcohol) Sex and Gender Information Value Date Recorded Sex Assigned at Not on file Legal Sex Male 10:06 AM MDT Gender Identity Not on file Sexual Orientation Not on file Last Filed Vital Signs Vital Sign Reading Time Taken Comments Blood Pressure 136/78 06/09/2022 9:10 AM HEEL [employer] 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 Pulse - - Temperature 36.2 C (97.2 F) 06/09/2022 9:10 AM HEEL [employer] 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 Respiratory Rate 18 06/09/2022 9:10 AM HEEL [employer] 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 Oxygen Saturation - - Inhaled Oxygen Concentration - - Weight 136 kg (300 lb) 06/09/2022 9:10 AM HEEL [employer] 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 Height 188 cm (6' 2) 06/09/2022 9:10 AM HEEL [employer] 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 Body Mass Index 38.52 06/09/2022 9:10 AM HEEL [employer] 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 Plan of Treatment Health Maintenance Due Date Last Done Comments COVID-19 Vaccine ( season) 2024 Influenza Vaccine (#1) 2025 04/19/2019 Pneumococcal PPSV23/PCV13 65 + Years / Low and Medium Risk Completed 08/15/2019, 06/07/2015, 05/02/2004 [place] [address] MEDICARE [place]ICA[place] Care Teams Shearing Machine Tender Relationship Specialty Start Date End Date Ba Ramirez MD [address] [place] [id number] PCP - General Internal Medicine 11/26/20
--- OUTSIDE RECORDS SUMMARY | 2025-02-19 11:51 | XMS_ITS | Clinical Summary ---
Author Organization [facility] Address [address] [place] [address] Care Team Providers Care Clean Out Driller Helper Name Role Phone Ba Ramirez MD Primary Care Provider Allergies Active Allergy Reactions Criticality Noted Date Comments Codeine Hallucination Low 03/17/2022 Morphine Delirium Medium 03/17/2022 Medications albuterol (PROVENTIL,VENTOL IN) 2.5 mg /3 mL (0.083 %) Solution for Nebulization 2 Active budesonide (PULMICORT RESPULE) 0.5 mg/2 mL Suspension for Nebulization 2 Active diclofenac sodium (VOLTAREN) 1 % gel 2 Active diltiaZEM (CARDIZEM) 30 mg tablet 2 Active ferrous sulfate 325 mg (65 mg iron) tablet Take 325 mg by mouth. 0 Active gabapentin (NEURONTIN) 100 mg capsule 2 Active levothyroxine 25 mcg tablet Take 25 mcg by mouth daily. 0 Active loratadine (CLARITIN) 10 mg tablet Take 10 mg by mouth daily. 0 Active omeprazole (PriLOSEC) 20 mg Capsule, Delayed Release(E.C.) 2 Active umeclidinium-debora nteroL (ANORO ELLIPTA) 62.5-25 mcg/actuation Disk with Device Take 1 Puff by inhalation. 0 Active zinc sulfate 50 mg zinc (220 mg) Tablet Take 220 mg by mouth. 0 Active ipratropium bromide (ATROVENT) 0.02 % Solution 3 Active montelukast (SINGULAIR) 10 mg tablet 3 Active simethicone 80 mg Tablet, Chewable Take 80 mg by mouth every 6 hours as needed. Active meclizine (ANTIVERT) 12.5 mg tablet 3 Active baclofen (LIORESAL) 10 mg tablet 3 Active acetaminophen (TYLENOL) 325 mg tablet Take 650 mg by mouth every 6 hours as needed for Pain, Moderate. Active Eliquis 5 mg tablet Take 5 mg by mouth. 4 Active atorvastatin (LIPITOR) 10 mg tablet Take 20 mg by mouth. 4 Active nystatin (NYSTOP) 100,000 unit/gram powder Apply to affected area. Active zinc oxide-white petrolatum (REMEDY Z-GUARD) 17-57 % Paste Apply to affected area. Active cetirizine (ZyrTEC) 10 mg tablet Take 10 mg by mouth daily. Active Active Problems Problem Noted Date Diagnosed Date Chronic kidney disease, unspecified 11/21/2022 Anemia of chronic renal failure, stage 3 (modera te) 03/17/2022 Encounters Date Type Department Care Team Description 02/06/2025 Orders Only [facility] Oncology and Hematology - [place] [address] [place] [address] Jose Arias MD Chronic anemia 02/01/2025 External Device Data STL ABSTRACTION Provider, Abstract 01/31/2025 External Device Data [facility] ABSTRACTION Provider, Abstract 01/23/2025 Orders Only [facility] Oncology and Hematology - [place] [address] [place] [address] Jose Arias MD Chronic anemia 01/17/2025 External Device Data STL ABSTRACTION Provider, Abstract 01/09/2025 Orders Only [facility] Oncology and Hematology - [place] [address] [place] [address] Jose Arias MD Chronic anemia 12/29/2024 Orders Only [facility] Oncology and Hematology - [place] [address] [place] [phone] Jose Arias MD 12/28/2024 9:45 AM CDT Office Visit [facility] Oncology and Hematology - [address] [place] [phone] Jose Arias MD Chronic anemia (Primary Dx) 12/28/2024 Orders Only [facility] Oncology and Hematology - [address] [place] [id number] Jose Arias MD 12/26/2024 Orders Only [facility] Oncology and Hematology - [address] [place] [id number] Jose Arias MD Chronic anemia 12/12/2024 Orders Only [facility] Oncology and Hematology - [address] [place] [phone] Jose Arias MD Chronic anemia 12/06/2024 External Device Data STL ABSTRACTION Provider, Abstract 12/01/2024 Orders Only [facility] Oncology and Hematology - [address] [place] [phone] Jose Arias MD 11/28/2024 Orders Only [facility] Oncology and Hematology - [address] [place] [phone] Jose Arias MD Chronic anemia from Last 3 Months Social History Tobacco Use Types Packs/Day Years Used Date Smoking Tobacco: Former Cigarettes 2.5 38 0 07/20/1963 - 07/20/2001 Tobacco Cessation:Counseling Given: Not Answered Alcohol Use Standard Drinks/Week Comments Yes 2 (1 standard drink = 0.6 oz pur e alcohol) Sex and Gender Information Value Date Recorded Sex Assigned at Not on file Legal Sex Male 4:32 PM CDT Gender Identity Not on file Sexual Orientation Not on file Last Filed Vital Signs Vital Sign Reading Time Taken Comments Blood Pressure 124/61 12/28/2024 9:35 AM CDT Pulse 87 12/28/2024 9:35 AM CDT Temperature 36.3 C (97.3 F) 12/28/2024 9:35 AM CDT Respiratory Rate 16 12/28/2024 9:35 AM CDT Oxygen Saturation 96% 12/28/2024 9:35 AM CDT Inhaled Oxygen Concentration - - Weight 138.3 kg (305 lb) 10/05/2024 1:34 PM CDT Height 188 cm (6' 2) 03/17/2022 2:46 PM CDT Body Mass Index 39.16 03/17/2022 2:46 PM CDT Plan of Treatment Upcoming Encounters Date Type Department Care Team (Late st Contact Info) Description 02/20/2025 Orders Only [facility] Oncology and Hematology [facility] [address] [place] [address] Jose Arias MD [address] [place] [address] Chronic anemia 03/22/2025 9:30 AM CDT Office Visit [facility] Oncology and Hematology - [place] [address] [place] [address] Carlota Gama MD [address] [place] [address] Health Maintenance Due Date Last Done Comments ZOSTER VACCINE (1 of 2) 12/19/1999 Abdominal Aortic Aneurysm (A AA) Screening 2014 RSV VACCINE (60+ or ) (1 - 1-dose 75+ series) 2024 INFLUENZA VACCINE (#1) 2025 9, 02/28/2014, 02/28/2014 DTAP/TDAP/TD VACCINES (2 - T d or Tdap) 06/07/2025 06/07/2015 PNEUMOCOCCAL VACCINE 50+ YEARS Completed 0 08/15/2019, 06/07/2015, 05/02/2004 Procedures Procedure Name Priority Date/Time Associated Diagnosis Comments BASIC METABOLIC PANEL Routine 12/28/2024 12:54 PM CDT CBC WITH AUTODIFFERENTIAL Routine 2024 12:53 PM CDT IRON, TIBC, AND PERCENT SATURATION Routine 12/28/2024 11:10 AM CDT CBC WITH AUTODIFFERENTIAL Routine 2024 11:01 AM CDT from Last 3 Months Results * BASIC METABOLIC PANEL (12/28/2024 12:54 PM CDT) Blood us Jose Arias MD CHEMISTRY ORDERABLES Final Resu lt * CBC WITH AUTODIFFERENTIAL (12/28/2024 12:53 PM CDT) Only the most recent of2 resultswithin the time period is included. Blood us Jose Arias MD HEMATOLOGY ORDERABLES Final Res ult * IRON, TIBC, AND PERCENT SATURATION (12/28/2024 11:10 AM CDT) Blood us Jose Arias MD CHEMISTRY ORDERABLES Final Resu lt from Last 3 Months [place] [address] MEDICAID [place] Member Subscriber Plan / Payer (Ef fective 2022-Present) Name:Bob Simmons Relation to Subscriber:Self Name:Bob Simmons Payer ID:Not on file Group ID:Not on file Type:Medicaid Address: [address] [id number] MEDICARE PART A AND B [facility] SUPP Advance Directives For more information, please contact: [phone] Documents on File Type Date Recorded Patient Heel Cementer Expl anation Advance Directive POA 02/17/2024 8:01 AM A dvance Directive POA Care Teams Clean Out Driller Helper Relationship Specialty Start Date End Date Ba Ramirez MD PCP - General Internal Medicine 06/17/22
--- OUTSIDE RECORDS SUMMARY | 2025-02-19 11:51 | XMS_ITS | Clinical Summary ---
Author Organization [facility] [employer] Address [address] [place] [address] Care Team Providers Care Fabrication Supervisor Name Role Phone Ba Ramirez MD Primary Care Provider Source Comments [facility] [employer],non-owned Affiliates and Associated Physician Practices is amultiple site organization consisting of ambulatory clinics and hospital sitesin [place], [place], [place] and [place]. This disclosure is being madepursuant to the Care Everywhere program and may not contain all information available regarding this patient. Last updated 18.[facility] [employer] Social History Tobacco Use Types Packs/Day Years Used Date Smoking Tobacco: Never Assessed Sex and Gender Information Value Date Recorded Sex Assigned at Not on file Legal Sex Male 2:21 PM COMIC ILLUSTRATOR Gender Identity Not on file Sexual Orientation Not on file Plan of Treatment Health Maintenance Due Date Last Done Comments COLOGUARD (AGES 45-75) - COL ON CA SCREENING 1949 COLON MONITORING 1949 COLONOSCOPY - COLON CA SCREENING 1949 CT COLONOGRAPHY - COLON CA SCREENING 1949 Colorectal Cancer Screening 1949 FIT - COLON CA SCREENING 1949 FLEX SIG - COLON CA SCREENING 1949 LIPID TESTING 1949 MEDICARE AWV 12 MONTHS 1949 DTAP/TDAP/TD VACCINES (1 - Tdap) 1968 PNEUMOCOCCAL VACCINE 50+ (1 of 1 - PCV) 12/19/1999 ZOSTER VACCINE (1 of 2) 12/19/1999 COVID-19 VACCINE (2 - 2023-2 5 season) 2024 08/11/2020 DEPRESSION SCREENING 07/20/2024 Respiratory Syncytial Virus (RSV) Vaccine Pt: or over 60 yrs (1 - 1-dose 75+ series) 2024 INFLUENZA VACCINE (#1) 2025 9, 02/28/2014 HEPATITIS C SCREENING Completed 12/07/2018 HEPATITIS B VACCINE Aged Out No longe r eligible based on patient's age to complete this topic HIB VACCINE Aged Out No longer eligi ble based on patient's age to complete this topic HPV VACCINE Aged Out No longer eligi ble based on patient's age to complete this topic MENINGOCOCCAL (Group B) VACCINE SHARED DECISION-MAKING Aged Out No longer eligible based on patient's age to complete this topic MENINGOCOCCAL GROUPS A/C/Y/W VACCINE Aged Out No longer eligible b ased on patient's age to complete this topic Insurance MEDICARE [facility] MEDICAID - [place] MEDICARE [facility] Care Teams Fabrication Supervisor Relationship Specialty Start Date End Date Ba Ramirez MD [address] [place] [address] PCP - General Internal Medicine 09/08/19
[2025-02-19 12:04] LABS: Hematocrit 26.6 % (42.0-52.0); Hemoglobin 8.3 g/dL (14.0-18.0); Immature Granulocyte Percent A 0.3 % (0-0.5); Lymphocytes Absolute Auto 1.35 K/mm3 (0.9-3.2); Mean Corpuscular HGB Conc 31.2 g/dl (32-36); Mean Corpuscular Hemoglobin 27.0 pg (26-34); Mean Corpuscular Volume 86.6 fl (80-100); Nucleated Red Blood Cells Absolute Auto 0.000 K/mm3 (0.0-0.012); Nucleated Red Blood Cells Perc 0.0 % (0.0-0.2); Platelet Count Result 304 k/mm3 (150-375); Red Blood Count 3.07 M/mm3 (4.6-6.20); White Blood Count 11.8 K/mm3 (4.5-10.0)
[2025-02-19 12:17] LABS: Add Urine Microscopic? YES; Appearance Urine Turbid (Clear); Glucose Urine UA Negative (Negative); Leukocyte Esterase Ur 3+ LEU/UL (Negative); Need Manual Microscopic Reviewed; Nitrate Urine Negative (Negative); Non Pathogenic Casts >20; Specific Grav Ur 1.020 (1.001-1.035)
[2025-02-19 12:24] LABS: INR 1.5; Partial Thromboplastin Time 26.0 Seconds (22.3-36.8); Prothrombin Time 17.8 Seconds (11.1-14.7)
[2025-02-19 12:29] LABS: Alanine Aminotransferase 37 U/L (6-50); Albumin Level 3.4 g/dL (3.5-5.1); Alkaline Phosphatase 235 U/L (38-126); Anion Gap 9 mmol/L (4-12); Aspartate Amino Transferase 43 U/L (17-59); Bilirubin,Total 0.7 mg/dL (0.2-1.3); Blood Urea Nitrogen 30 mg/dL (9-20); CRP 2.9 mg/dL (<1.0); Calcium 8.5 mg/dL (8.4-10.2); Carbon Dioxide 25 mmol/L (22-30); Chloride 104 mmol/L (98-107); Estimated Glomerular Filt Rate 55; Glucose 115 mg/dL (65-110); Potassium 4.3 mmol/L (3.4-5.0); Sodium 138 mmol/L (137-145); Total Protein 8.0 g/dL (6.3-8.2)
[2025-02-19] MEDS: cefTRIAXone 1 GM in SODIUM CHLORIDE 0.9% IV 50 ML 100 ML IVPB (14:06)
[2025-02-19] MEDS: LACTATED RINGERS 1,000 ML 999 ML IV CONT (14:31)
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
[2025-02-19] MEDS: LACTATED RINGERS 1,000 ML 125 ML IV CONT (16:21)
--- NOTE | 2025-02-19 16:41 | PC.NURSE ---
RN attempted to call pt [facility] with no response and unable to leave message
--- NOTE | 2025-02-19 17:38 | WNDPHOTO ---
PHOTO ONLY - See Nursing Notes and/ or assessments for documentation.
--- NOTE | 2025-02-19 17:41 | WNDPHOTO ---
PHOTO ONLY - See Nursing Notes and/ or assessments for documentation.
--- NOTE | 2025-02-19 17:42 | WNDPHOTO ---
PHOTO ONLY - See Nursing Notes and/ or assessments for documentation.
--- NOTE | 2025-02-19 17:42 | WNDPHOTO ---
PHOTO ONLY - See Nursing Notes and/ or assessments for documentation.
--- NOTE | 2025-02-19 18:19 | ADMGEN ---
This patient, Bob Simmons, was admitted to IMU Room 205-01. Patient/family oriented to hospital policies and general routines including ID bracelet, bed and alarms, visiting hours, pain management, procedures, bathroom and other care routines, personal items, smoking policy, room service/diet, and visiting hours. Information on how to activate the Rapid Response Team has been discussed. Patient/Family are encouraged to report perceived risks to care and to ask questions if they do not understand what they are told or what they should do. Patient resting in bed and very agitated at this time. Patient unable to answer admission questions at this time. Head to toe assessment completed and charted. Bed in low and locked position. Call light and personal items in reach. Will continue to monitor.Bindu العلي RN
[2025-02-19 18:56] LABS: Troponin I 0.045 ng/mL (0.000-0.034)
[2025-02-19 19:22] LABS: Thyroid Stimulating Hormone Reflex 1.930 uIU/mL (0.465-4.68)
[2025-02-19] MEDS: ASPIRIN 300 MG SUPPOSITORY RECTAL (19:40)
[2025-02-19 19:49] LABS: Vitamin B12 > 1000.0 pg/mL (239-931)
[2025-02-19 21:10] LABS: Troponin I 0.048 ng/mL (0.000-0.034)
[2025-02-19] MEDS: KETOROLAC 15 MG/ML VIAL (*BKC) IV PUSH (21:57)
[2025-02-19 23:29] LABS: Troponin I 0.049 ng/mL (0.000-0.034)
[2025-02-20] VITALS (22 sets, daily range): BP systolic 114–161; BP diastolic 47–84; PULSE 76–112; RESP 18–24; TEMP 36.4–37.3; O2SAT 96–100; BMI 34.4
--- NOTE | 2025-02-20 | ECHO_ITS ---
Patient Info Name: Bob Simmons Age: 74 years : 1950 Gender: Male Ht: 74 in Wt: 286 lbs BSA: 2.65 m2 HR: 88 bpm BP: 156 / 66 mmHg Technical Quality: Good Exam Date: 02/20/2025 9:35 AM Patient Status: I Admit Date: 02/19/2025 Exam Type: CA echo doppler color flow Complete two-dimensional, color flow and Doppler transthoracic echocardiogram is performed. Staff Referring Physician: James Pacheco Field Investigator: Jessica Ruvalcaba Attending Provider: Poncho Bansal Summary 1. Complete two-dimensional, color flow and Doppler transthoracic echocardiogram is performed. 2. Left ventricular systolic function is normal, estimated at 50-55. 3. The left ventricular diastolic function is grade I diastolic dysfunction. 4. There is mildly increased left ventricular wall thickness. 5. There is small pericardial effusion. 6. technically difficult study. Left Ventricle Left ventricular chamber dimension is normal. Left ventricular systolic function is normal, estimated at 50-55. There is mildly increased left ventricular wall thickness. Left ventricular septal wall motion is normal. The left ventricular diastolic function is grade I diastolic dysfunction. Right Ventricle Right ventricular chamber dimension is normal. Right ventricular systolic function is normal. Left Atria Left atrial chamber dimension is normal. Right Atria Right atrial chamber dimension is normal. Aortic Valve The aortic valve is trileaflet. There is mild aortic valve sclerosis. There is no aortic valve stenosis. There is no aortic valve regurgitation. Pulmonic Valve The pulmonic valve is normal. There is no pulmonic valve stenosis. There is no pulmonic regurgitation. Mitral Valve The mitral valve has normal leaflets. There is no mitral valve stenosis. There is no mitral valve regurgitation. Tricuspid Valve The tricuspid valve leaflets are normal. There is no significant tricuspid valve stenosis. There is no tricuspid valve regurgitation. Pericardium/Pleural The pericardium appears normal. There is small pericardial effusion. Inferior Vena Cava Normal inferior vena cava with >50% collapse upon inspiration consistent with normal right atrial pressure, 5 mmHg. Aorta The aortic root size at the sinus of Valsalva is normal. The prox ascending aorta size is normal. Left Ventricular Outflow Tract Name Value Normal LVOT 2D LVOT Diameter 2.5 cm LVOT Doppler LVOT Peak Velocity 94 cm/s LVOT Peak Gradient 4 mmHg LVOT Mean Gradient 2 mmHg LVOT VTI 21 cm LVOT Stroke Volume 101 ml LVOT CO 8.9 l/min LVOT CI 3.4 l/min/m2 Pulmonic Valve Name Value Normal RVOT Doppler RVOT Peak Velocity 97 cm/s RVOT Peak Gradient 4 mmHg PV Doppler PV Peak Velocity 108 cm/s PV Peak Gradient 5 mmHg Mitral Valve Name Value Normal MV Diastolic Function MV E Peak Velocity 63 cm/s MV A Peak Velocity 90 cm/s MV E/A 0.7 MV Decel Time (PW) 307 ms MV Annular TDI MV E/e' (Septal) 10.7 MV E/e' (Lateral) 7.5 MV E/e' (Average) 9.1 Tricuspid Valve Name Value Normal Estimated PAP/RSVP RA Pressure 5 mmHg <=5 Aortic Valve Name Value Normal AV Doppler AV Peak Velocity 130 cm/s AV Peak Gradient 7 mmHg AV Area (Cont Eq Zackary) 3.4 cm2 AV DI (Zackary) 0.72 AV Regurgitation 2D LVOT Area 4.8 cm2 Ventricles Name Value Normal LV Dimensions 2D/MM IVS Diastolic Thickness (2D) 1.3 cm 0.6-1.0 LVID Diastole (2D) 5.5 cm 4.2-5.8 LVIW Diastolic Thickness (2D) 1.3 cm 0.6-1.0 LVID Systole (2D) 4.1 cm 2.5-4.0 LVOT Diameter 2.5 cm LV Mass (2D Cubed) 302.40 g 88.00-224.00 LV Mass Index (2D Cubed) 114 g/m2 49-115 Relative Wall Thickness (2D) 0.48 <=0.42 LV Fractional Shortening/Ejection Fraction 2D/MM LV Fractional Shortening (2D) 25 % 25-43 LV EF (2D Teichholz) 49 % LV Diastolic Volume (4C MOD) 162 ml LV EF (4C MOD) 61 % LV Diastolic Volume (2C MOD) 135 ml LV EF (2C MOD) 61 % LV Diastolic Volume (BP MOD) 151 ml 62-150 LV Diastolic Volume Index (BP MOD) 57 ml/m2 34-74 LV Systolic Volume (BP MOD) 61 ml 21-61 LV Systolic Volume Index (BP MOD) 23 ml/m2 11-31 LV EF (BP MOD) 60 % 52-72 LV Diastolic Length (4C) 9.2 cm LV Systolic Length (4C) 8.2 cm LV Stroke Volume (4C MOD) 99 ml Atria Name Value Normal LA Dimensions LA Volume (4C A-L) 78 ml LA Volume (BP A-L) 76 ml RA Dimensions RA Systolic Major [place] Length (4C) 6.0 cm 2.1-2.7 RA Area (4C) 20.6 cm2 <=18.0 Report Signatures
[2025-02-20 00:40] LABS: Cannabinoid Screen Urine Negative (Negative)
[2025-02-20 04:36] LABS: Hematocrit 24.8 % (42.0-52.0); Hemoglobin 7.7 g/dL (14.0-18.0); Immature Granulocyte Percent A 0.5 % (0-0.5); Lymphocytes Absolute Auto 1.14 K/mm3 (0.9-3.2); Mean Corpuscular HGB Conc 31.0 g/dl (32-36); Mean Corpuscular Hemoglobin 26.6 pg (26-34); Mean Corpuscular Volume 85.8 fl (80-100); Nucleated Red Blood Cells Absolute Auto 0.000 K/mm3 (0.0-0.012); Nucleated Red Blood Cells Perc 0.0 % (0.0-0.2); Platelet Count Result 264 k/mm3 (150-375); Red Blood Count 2.89 M/mm3 (4.6-6.20); White Blood Count 10.2 K/mm3 (4.5-10.0)
[2025-02-20 05:09] LABS: Alanine Aminotransferase 42 U/L (6-50); Albumin Level 3.1 g/dL (3.5-5.1); Alkaline Phosphatase 243 U/L (38-126); Anion Gap 6 mmol/L (4-12); Aspartate Amino Transferase 45 U/L (17-59); Bilirubin,Total 0.7 mg/dL (0.2-1.3); Blood Urea Nitrogen 26 mg/dL (9-20); Calcium 8.5 mg/dL (8.4-10.2); Carbon Dioxide 26 mmol/L (22-30); Chloride 102 mmol/L (98-107); Estimated Glomerular Filt Rate 55; Glucose 105 mg/dL (65-110); Magnesium 1.0 mg/dL (1.6-2.3); Potassium 4.4 mmol/L (3.4-5.0); Sodium 134 mmol/L (137-145); Total Protein 7.2 g/dL (6.3-8.2)
[2025-02-20] MEDS: IPRATROPIUM BR 0.02% INH SOLN 0.5 MG/2.5 ML VIAL INHALATION ×2 (07:36→15:26)
[2025-02-20] MEDS: FLUTICASONE/UMECLIDIN/VILANTER 100-62.5-25 MCG ELLIPTA 1 PUFF INHALATION (07:56)
[2025-02-20] MEDS: LACTATED RINGERS 1,000 ML 70 ML IV CONT (08:17)
[2025-02-20] MEDS: cefTRIAXone 1 GM in SODIUM CHLORIDE 0.9% IV 50 ML 100 ML IVPB (08:17)
[2025-02-20] MEDS: DICLOFENAC SODIUM 1% 100 GM GEL (*BKC) 1 APPLIC TOPICAL ×2 (08:30→20:41)
[2025-02-20] MEDS: ENOXAPARIN 40 MG/0.4 ML SYRINGE SUB-Q (08:30)
[2025-02-20] MEDS: LIDOCAINE 5% PATCH 2 PATCH TRANSDERM (08:31)
[2025-02-20] MEDS: FLUTICASONE PROPIONATE 0.05% NA SPR 16 GM BTL (*BKC) 2 SPRAY NASAL (08:31)
[2025-02-20] MEDS: SODIUM CHLORIDE 5% OPHTH OINT 3.5 GM TUBE 1 APPLIC EACH EYE ×4 (08:32→20:41)
[2025-02-20] MEDS: MAGNESIUM SULFATE 3GM/D5W100ML 3 GM/100 ML BAG IVPB (09:24)
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
[2025-02-20] MEDS: ASPIRIN 300 MG SUPPOSITORY RECTAL (17:24)
[2025-02-20] MEDS: DEXTROSE 5%/0.9% SOD CHL 1,000 ML 70 ML IV CONT (19:00)
[2025-02-21] VITALS (25 sets, daily range): BP systolic 145–184; BP diastolic 48–66; PULSE 71–882; RESP 14–20; TEMP 36.4–36.9; O2SAT 94–100
[2025-02-21] MEDS: IPRATROPIUM BR 0.02% INH SOLN 0.5 MG/2.5 ML VIAL INHALATION ×2 (00:01→08:21)
[2025-02-21 04:38] LABS: Hematocrit 23.7 % (42.0-52.0); Hemoglobin 7.3 g/dL (14.0-18.0); Immature Granulocyte Percent A 0.3 % (0-0.5); Lymphocytes Absolute Auto 1.24 K/mm3 (0.9-3.2); Mean Corpuscular HGB Conc 30.8 g/dl (32-36); Mean Corpuscular Hemoglobin 27.0 pg (26-34); Mean Corpuscular Volume 87.8 fl (80-100); Nucleated Red Blood Cells Absolute Auto 0.000 K/mm3 (0.0-0.012); Nucleated Red Blood Cells Perc 0.0 % (0.0-0.2); Platelet Count Result 229 k/mm3 (150-375); Red Blood Count 2.70 M/mm3 (4.6-6.20); White Blood Count 7.1 K/mm3 (4.5-10.0)
[2025-02-21 04:45] LABS: Albumin Level 3.1 g/dL (3.5-5.1); Anion Gap 5 mmol/L (4-12); Blood Urea Nitrogen 22 mg/dL (9-20); Calcium 8.3 mg/dL (8.4-10.2); Carbon Dioxide 25 mmol/L (22-30); Chloride 104 mmol/L (98-107); Estimated CRCL calculation 72 ml/min; Estimated Glomerular Filt Rate > 60; Glucose 113 mg/dL (65-110); Magnesium 1.7 mg/dL (1.6-2.3); Potassium 3.8 mmol/L (3.4-5.0); Sodium 134 mmol/L (137-145)
--- NOTE | 2025-02-21 06:59 | P.CDI_ITS ---
CDI Query Clarification Request BMI: 31.6 Nutritional Diagnostic Statement: Please refer to the comprehensive nutrition assessment for further information. If you agree with diagnosis of Severe protein calorie malnutrition related to loss of appetite as evidenced by weight loss 8%/2 months, intakes <75% needs >1 month; moderate muscle wasting and fat loss. Please specify severity if known: * Mild * Moderate * Severe * Other/Unknown
[2025-02-21] MEDS: SODIUM CHLORIDE 5% OPHTH OINT 3.5 GM TUBE 1 APPLIC EACH EYE ×4 (08:52→20:47)
[2025-02-21] MEDS: FLUTICASONE PROPIONATE 0.05% NA SPR 16 GM BTL (*BKC) 2 SPRAY NASAL (08:52)
[2025-02-21] MEDS: DICLOFENAC SODIUM 1% 100 GM GEL (*BKC) 1 APPLIC TOPICAL ×2 (08:53→20:47)
[2025-02-21] MEDS: LIDOCAINE 5% PATCH 2 PATCH TRANSDERM (08:53)
[2025-02-21] MEDS: cefTRIAXone 1 GM in SODIUM CHLORIDE 0.9% IV 50 ML 100 ML IVPB (08:54)
[2025-02-21] MEDS: DEXTROSE 5%/0.9% SOD CHL 1,000 ML 70 ML IV CONT (09:56)
[2025-02-21] MEDS: ENOXAPARIN 40 MG/0.4 ML SYRINGE SUB-Q (13:36)
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
[2025-02-21] MEDS: CALCIUM CARBONATE (TUMS) 500 MG (200 MG ELEMENTAL) PO (18:26)
[2025-02-21] MEDS: APIXABAN 5 MG TABLET PO (20:46)
[2025-02-21] MEDS: ATORVASTATIN 10 MG TABLET PO (20:46)
[2025-02-21] MEDS: MONTELUKAST SODIUM 10 MG TABLET PO (20:46)
[2025-02-22] VITALS (32 sets, daily range): BP systolic 138–161; BP diastolic 49–67; PULSE 72–89; RESP 16–24; TEMP 36.4–37; O2SAT 94–100
[2025-02-22] MEDS: IPRATROPIUM BR 0.02% INH SOLN 0.5 MG/2.5 ML VIAL INHALATION ×3 (00:02→15:53)
[2025-02-22 04:10] LABS: Hematocrit 22.0 % (42.0-52.0); Immature Granulocyte Percent A 0.4 % (0-0.5); Lymphocytes Absolute Auto 1.50 K/mm3 (0.9-3.2); Mean Corpuscular HGB Conc 30.9 g/dl (32-36); Mean Corpuscular Hemoglobin 27.1 pg (26-34); Mean Corpuscular Volume 87.6 fl (80-100); Nucleated Red Blood Cells Absolute Auto 0.000 K/mm3 (0.0-0.012); Nucleated Red Blood Cells Perc 0.0 % (0.0-0.2); Platelet Count Result 227 k/mm3 (150-375); Red Blood Count 2.51 M/mm3 (4.6-6.20); White Blood Count 6.8 K/mm3 (4.5-10.0)
[2025-02-22 04:17] LABS: Hemoglobin 6.8 g/dL (14.0-18.0)
[2025-02-22 04:30] LABS: Albumin Level 2.8 g/dL (3.5-5.1); Anion Gap 4 mmol/L (4-12); Blood Urea Nitrogen 19 mg/dL (9-20); Calcium 7.9 mg/dL (8.4-10.2); Carbon Dioxide 25 mmol/L (22-30); Chloride 103 mmol/L (98-107); Estimated CRCL calculation 70 ml/min; Estimated Glomerular Filt Rate > 60; Glucose 97 mg/dL (65-110); Magnesium 1.5 mg/dL (1.6-2.3); Potassium 4.2 mmol/L (3.4-5.0); Sodium 132 mmol/L (137-145)
[2025-02-22] MEDS: VANCOMYCIN 1,250 MG/NS 250 ML 1,250 MG/250 ML BAG 166.67 MG IVPB ×2 (04:31→05:42)
[2025-02-22] MEDS: LEVOTHYROXINE SODIUM 25 MCG TABLET PO (05:27)
[2025-02-22] MEDS: TUBING, BLOOD PLUM PUMP TUBING 1 EACH XX (05:29)
[2025-02-22] MEDS: SODIUM CHLORIDE 0.9% IV 250 ML 30 ML IV CONT (06:24)
--- NOTE | 2025-02-22 08:42 | ECG_ITS ---
Test Date: 2025-02-22 08:51:33 Measurements Intervals [place] Rate: 79 P: 143 NM: 162 QRS: 201 QRSD: 110 T: 191 QT: 377 QTc: 432 Interpretive Statements SINUS RHYTHM LIMB LEAD REVERSAL INTRAVENTRICULAR CONDUCTION DELAY BASELINE WANDER- II, III, AVR BORDERLINE ECG DELAYED PRECORDIAL R/S TRANSITION Compared to ECG 02/19/2025 11:00:25 NO SIGNIFICANT CHANGE Electronically Signed On 02-22-2025 09:52:26 CDT by Wang Bhagat D.O.
--- NOTE | 2025-02-22 08:50 | PCSTNOTE ---
Please refer to the Bedside Swallow Evaluation in the EMR. Please note, silent aspiration cannot be ruled out at bedside. The patient is a 74 year old male admitted with AMS possible CVA and chronic respiratory failure. Orders received from physician to complete a BSE to r/o aspiration risk. The patient was positioned upright in bed to complete the BSE. Oral Mechanism Exam: The patient is edentulous but has adequate lingual and labial ROM. He states he currently eats a regular texture diet and is able to masticate with his gums. When asked if any textures cause coughing at times. He stated solids on occasion due to dentition. The patient was presented the following consistencies: 5cc/tsp thin, uncontrolled 2/straw drinks thin, puree/applesauce, and solid/cracker. Oral Stage: The patient required some extra time to masticate solids but oral stage overall was within normal limits. Pharyngeal Stage: When presented 5cc/tsp thin, uncontrolled 2/straw drinks of thin, and puree/applesauce swallow initiation was timely with good laryngeal elevation and no clinical signs of aspiration noted. When presented trails cracker/solid again swallow initiation was timely with good laryngeal elevation. The patient had one slight throat clearing episode but vocal quality was clear. Recommend: 1. Regular Diet/Level 7, 2. Thin Liquid/Level 0, 3. Small bites and drinks due to edentulous and to allow for good mastication. 4. Speech Therapy to follow to assure precautions have reduced aspiration risk.
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
[2025-02-22] MEDS: FLUTICASONE PROPIONATE 0.05% NA SPR 16 GM BTL (*BKC) 2 SPRAY NASAL (09:52)
[2025-02-22] MEDS: cefTRIAXone 1 GM in SODIUM CHLORIDE 0.9% IV 50 ML 100 ML IVPB (09:53)
[2025-02-22] MEDS: DICLOFENAC SODIUM 1% 100 GM GEL (*BKC) 1 APPLIC TOPICAL (09:53)
[2025-02-22] MEDS: FERROUS SULFATE 325 MG TABLET DR BY MOUTH ×2 (09:54→18:37)
[2025-02-22] MEDS: MULTIVITAMINS THERAPEUTIC TAB (*BKC) 1 TABLET PO (09:54)
[2025-02-22] MEDS: CHOLECALCIFEROL (VITAMIN D3) 25 MCG (1,000 UNITS) TABLET PO (09:54)
[2025-02-22] MEDS: GABAPENTIN 100 MG CAPSULE 200 MG PO (09:54)
[2025-02-22] MEDS: PANTOPRAZOLE 40 MG TABLET PO (09:54)
[2025-02-22] MEDS: CYANOCOBALAMIN 1,000 MCG TABLET 1000 MCG PO (09:54)
[2025-02-22] MEDS: CALCIUM CARBONATE (TUMS) 500 MG (200 MG ELEMENTAL) PO ×3 (09:54→18:37)
[2025-02-22] MEDS: LIDOCAINE 5% PATCH 2 PATCH TRANSDERM (09:54)
[2025-02-22] MEDS: ASCORBIC ACID 500 MG TABLET PO (09:54)
[2025-02-22] MEDS: FLUTICASONE/UMECLIDIN/VILANTER 100-62.5-25 MCG ELLIPTA 1 PUFF INHALATION (09:56)
[2025-02-22 13:44] LABS: IFOB Positive Control Positive; Immunochemical Fecal Occult Bl Negative (N)
[2025-02-22] MEDS: SODIUM CHLORIDE 5% OP SOLN 15 ML BTL 1 DROP EACH EYE ×2 (14:06→18:38)
[2025-02-22 16:14] LABS: Hematocrit 28.6 % (42.0-52.0); Hemoglobin 8.6 g/dL (14.0-18.0)
[2025-02-22] MEDS: MONTELUKAST SODIUM 10 MG TABLET PO (20:44)
[2025-02-22] MEDS: ATORVASTATIN 10 MG TABLET PO (20:44)
[2025-02-23] VITALS (19 sets, daily range): BP systolic 142–158; BP diastolic 47–72; PULSE 72–98; RESP 16–22; TEMP 36.4–36.7; O2SAT 92–97
[2025-02-23] MEDS: IPRATROPIUM BR 0.02% INH SOLN 0.5 MG/2.5 ML VIAL INHALATION ×3 (01:23→15:24)
[2025-02-23 03:52] LABS: Hematocrit 27.9 % (42.0-52.0); Hemoglobin 8.7 g/dL (14.0-18.0); Immature Granulocyte Percent A 0.4 % (0-0.5); Lymphocytes Absolute Auto 1.62 K/mm3 (0.9-3.2); Mean Corpuscular HGB Conc 31.2 g/dl (32-36); Mean Corpuscular Hemoglobin 27.6 pg (26-34); Mean Corpuscular Volume 88.6 fl (80-100); Nucleated Red Blood Cells Absolute Auto 0.000 K/mm3 (0.0-0.012); Nucleated Red Blood Cells Perc 0.0 % (0.0-0.2); Platelet Count Result 231 k/mm3 (150-375); Red Blood Count 3.15 M/mm3 (4.6-6.20); White Blood Count 8.3 K/mm3 (4.5-10.0)
[2025-02-23 04:04] LABS: Anion Gap 6 mmol/L (4-12); Blood Urea Nitrogen 20 mg/dL (9-20); Calcium 8.2 mg/dL (8.4-10.2); Carbon Dioxide 25 mmol/L (22-30); Chloride 105 mmol/L (98-107); Estimated CRCL calculation 65 ml/min; Estimated Glomerular Filt Rate 59; Glucose 103 mg/dL (65-110); Magnesium 1.4 mg/dL (1.6-2.3); Potassium 4.6 mmol/L (3.4-5.0); Sodium 136 mmol/L (137-145)
[2025-02-23] MEDS: LEVOTHYROXINE SODIUM 25 MCG TABLET PO (05:25)
[2025-02-23] MEDS: FERROUS SULFATE 325 MG TABLET DR BY MOUTH ×2 (05:25→17:09)
[2025-02-23] MEDS: FLUTICASONE PROPIONATE 0.05% NA SPR 16 GM BTL (*BKC) 2 SPRAY NASAL (08:53)
[2025-02-23] MEDS: CALCIUM CARBONATE (TUMS) 500 MG (200 MG ELEMENTAL) PO ×3 (08:54→16:06)
[2025-02-23] MEDS: CHOLECALCIFEROL (VITAMIN D3) 25 MCG (1,000 UNITS) TABLET PO (08:54)
[2025-02-23] MEDS: cefTRIAXone 1 GM in SODIUM CHLORIDE 0.9% IV 50 ML 100 ML IVPB (08:54)
[2025-02-23] MEDS: MULTIVITAMINS THERAPEUTIC TAB (*BKC) 1 TABLET PO (08:54)
[2025-02-23] MEDS: LIDOCAINE 5% PATCH 2 PATCH TRANSDERM (08:54)
[2025-02-23] MEDS: ASCORBIC ACID 500 MG TABLET PO (08:55)
[2025-02-23] MEDS: CYANOCOBALAMIN 1,000 MCG TABLET 1000 MCG PO (08:55)
[2025-02-23] MEDS: GABAPENTIN 100 MG CAPSULE 200 MG PO (08:55)
[2025-02-23] MEDS: PANTOPRAZOLE 40 MG TABLET PO (08:55)
[2025-02-23] MEDS: FLUTICASONE/UMECLIDIN/VILANTER 100-62.5-25 MCG ELLIPTA 1 PUFF INHALATION (09:32)
--- NOTE | 2025-02-23 11:07 | PCNFU ---
Nutrition Follow-Up Complete: Severe protein calorie malnutrition related to loss of appetite as evidenced by weight loss 8%/2 months, intakes <75% needs >1 month; moderate muscle wasting and fat loss Diet advancement -Goal is met PO intake >50% when diet advanced - Goal is being met. Continue with goal Goal: Pt current nutrition is Heart healthy diet, soft and bite size L6, Ensure HP+ BID (350 kcal, 20 g protein). Nutrition recommendation: No new recommendations. Continue current nutrition care plan and orders. Agree with orders Last recorded weight is 114.7 kg. Bowel Motility: +1 BM 8.6 Labs Reviewed: Hgb 8.7, Hct 27.9, Na 136, Mag 1.4 Meds Noted: Protonix, Eliquis Skin: No pressure injuries Additional Notes: Intakes are good 100%. Agree with current orders. Monitoring intakes, weights, labs, diet orders, plan of care Follow in 5 days
[2025-02-23] MEDS: MAGNESIUM SULF 2 GM/WATER 50ML 2 GM/50 ML BAG IVPB (12:06)
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
[2025-02-23] MEDS: LINEZOLID 600 MG TABLET PO ×2 (14:55→21:14)
--- NOTE | 2025-02-23 17:09 | PC.NURSE ---
This patient, Bob Simmons, was received from IMU on 02/23/25 at 1645. Patient/family oriented to unit policies and routines
[2025-02-23] MEDS: MONTELUKAST SODIUM 10 MG TABLET PO (21:13)
[2025-02-23] MEDS: ATORVASTATIN 10 MG TABLET PO (21:13)
[2025-02-23] MEDS: APIXABAN 5 MG TABLET PO (21:14)
[2025-02-23] MEDS: SODIUM CHLORIDE 5% OP SOLN 15 ML BTL 1 DROP EACH EYE (21:40)
--- NOTE | 2025-02-23 23:48 | PC.NURSE ---
PCT went into room to obtain glucose level. Pt. REFUSED to have glucose level done at this time. Pt. stated earlier to this nurse that he 'didn't want to be poked.' Attempted to obtain level at this time if Pt. did decide to let us. Pt. continued to refuse finger stick glucose level.
[2025-02-24] VITALS (8 sets, daily range): BP systolic 131; BP diastolic 57; PULSE 69–90; RESP 16–20; TEMP 37; O2SAT 93–95
[2025-02-24] MEDS: IPRATROPIUM BR 0.02% INH SOLN 0.5 MG/2.5 ML VIAL INHALATION ×3 (00:40→13:49)
[2025-02-24] MEDS: FERROUS SULFATE 325 MG TABLET DR BY MOUTH (05:30)
[2025-02-24] MEDS: SODIUM CHLORIDE 5% OP SOLN 15 ML BTL 1 DROP EACH EYE ×3 (05:30→13:15)
[2025-02-24 06:40] LABS: Hematocrit 25.3 % (42.0-52.0); Hemoglobin 7.9 g/dL (14.0-18.0); Immature Granulocyte Percent A 0.6 % (0-0.5); Lymphocytes Absolute Auto 1.58 K/mm3 (0.9-3.2); Mean Corpuscular HGB Conc 31.2 g/dl (32-36); Mean Corpuscular Hemoglobin 27.0 pg (26-34); Mean Corpuscular Volume 86.3 fl (80-100); Nucleated Red Blood Cells Absolute Auto 0.000 K/mm3 (0.0-0.012); Nucleated Red Blood Cells Perc 0.0 % (0.0-0.2); Platelet Count Result 243 k/mm3 (150-375); Red Blood Count 2.93 M/mm3 (4.6-6.20); White Blood Count 8.1 K/mm3 (4.5-10.0)
[2025-02-24 07:15] LABS: Anion Gap 9 mmol/L (4-12); Blood Urea Nitrogen 24 mg/dL (9-20); Calcium 8.1 mg/dL (8.4-10.2); Carbon Dioxide 24 mmol/L (22-30); Chloride 101 mmol/L (98-107); Estimated CRCL calculation 63 ml/min; Estimated Glomerular Filt Rate 55; Glucose 90 mg/dL (65-110); Magnesium 1.6 mg/dL (1.6-2.3); Potassium 4.7 mmol/L (3.4-5.0); Sodium 134 mmol/L (137-145)
[2025-02-24] MEDS: ASCORBIC ACID 500 MG TABLET PO (08:35)
[2025-02-24] MEDS: LEVOTHYROXINE SODIUM 25 MCG TABLET PO (08:35)
[2025-02-24] MEDS: PANTOPRAZOLE 40 MG TABLET PO (08:35)
[2025-02-24] MEDS: CALCIUM CARBONATE (TUMS) 500 MG (200 MG ELEMENTAL) PO ×2 (08:35→13:15)
[2025-02-24] MEDS: CYANOCOBALAMIN 1,000 MCG TABLET 1000 MCG PO (08:36)
[2025-02-24] MEDS: APIXABAN 5 MG TABLET PO (08:36)
[2025-02-24] MEDS: GABAPENTIN 100 MG CAPSULE 200 MG PO (08:36)
[2025-02-24] MEDS: LINEZOLID 600 MG TABLET PO (08:36)
[2025-02-24] MEDS: CHOLECALCIFEROL (VITAMIN D3) 25 MCG (1,000 UNITS) TABLET PO (08:36)
[2025-02-24] MEDS: MULTIVITAMINS THERAPEUTIC TAB (*BKC) 1 TABLET PO (08:36)
[2025-02-24] MEDS: FLUTICASONE PROPIONATE 0.05% NA SPR 16 GM BTL (*BKC) 2 SPRAY NASAL (08:37)
[2025-02-24] MEDS: LIDOCAINE 5% PATCH 2 PATCH TRANSDERM (08:39)
[2025-02-24] MEDS: ACETAMINOPHEN 500 MG TABLET 1000 MG PO (08:46)
[2025-02-24] MEDS: FLUTICASONE/UMECLIDIN/VILANTER 100-62.5-25 MCG ELLIPTA 1 PUFF INHALATION (09:13)
--- NOTE | 2025-02-24 09:36 | PC.NURSE ---
On 02/24/25, the student, Lala Mcgovern RN LP provided care and completed VSporto documentation on this patient. I have reviewed the student's documentation and agree with the findings.
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
--- NOTE | 2025-02-24 11:28 | WNDPHOTO ---
PHOTO ONLY - See Nursing Notes and/ or assessments for documentation.
--- NOTE | 2025-02-24 12:51 | P.CDI_ITS ---
<Statement entered by Kiara Richardson MD - 03/02/25 11:19> This documentation has been reviewed and approved. unable to determine CDI Query Clarification Request ER documentation noted that the patient was treated for a UTI, related to a Pereira catheter. However, there is no additional documentation from the attending providers supporting that. 1) Please select the most appropriate option or specify below: * Catheter- associated UTI (CAUTI) * [id number] UTI * unable to determine * other, please specify 02/19 blood culture x1 resulted on 02/23: Vancomycin resistant enterococcus faecium 1) Please clarify is there is a possible corresponding diagnosis in relation to the urine culture results. The medical chart reflects the following: ER documented: Clinical Impression: AMS (altered mental status), UTI (urinary tract infection) due to urinary indwelling catheter Progress note: (3) Complicated UTI (urinary tract infection): Code(s): N39.0 - Urinary tract infection, site not specified Status: Acute Assessment and Plan: UA is consistent with complicated UTI. UCx and BCx collected. Old cultures reviewed. Cx in the distant past showing UTIs with carbapenem resistant Proteus (CRE), ESBL Klebsiella and EColi and pseudomonas. However, most recent urine culture showed Klebsiella and EColi sensitive to Rocephin. Urinary catheter was changed out. Rocephin started. BCx NGTD UCx final no growth. WBC normalized. Discontinue vancomycin. Complete 5 day course of Rocephin to end on 02/23/2025. D/C summary: He was treated for complicated UTI with Rocephin Of note, the patient had blood cultures drawn on 02/19/2025. One aerobic bottle is growing vancomycin resistant Enterococcus faecium. He has been started on linezolid and will be discharged on another 7 days p.o.. He does not feel the need to recheck blood cultures or provide further evaluation/management here in the hospital. RFX UR CX DUE TO ABN UA R82.90 Final 02/22/25-0508 LC No growth
== END 2025-02-24 15:04 | disposition hospice, inpatient (51) | DRG 947 ==
LOC: ANHED 14:52 → ANHIMU 16:11 → ANH3MEDSUR 02-23 16:51 → ANHIMU 02-27 16:18
PROVIDERS: Internal Medicine; Admitting Provider General Practice; Emergency Provider Emergency Medicine; Visit Provider General Practice
DX: R41.0 Disorientation, unspecified (principal); E43 Unspecified severe protein-calorie malnutrition; I13.0 Hypertensive heart and chronic kidney disease with heart failure and stage 1 through stage 4 chronic kidney disease, or unspecified chronic kidney disease; I50.32 Chronic diastolic (congestive) heart failure; J96.11 Chronic respiratory failure with hypoxia; G82.20 Paraplegia, unspecified; R82.90 Unspecified abnormal findings in urine; N31.9 Neuromuscular dysfunction of bladder, unspecified; Z97.8 Presence of other specified devices; I48.0 Paroxysmal atrial fibrillation; Z68.33 Body mass index [BMI] 33.0-33.9, adult; N18.9 Chronic kidney disease, unspecified; D64.9 Anemia, unspecified; E03.9 Hypothyroidism, unspecified; J43.9 Emphysema, unspecified; K21.9 Gastro-esophageal reflux disease without esophagitis; G62.9 Polyneuropathy, unspecified; I73.9 Peripheral vascular disease, unspecified; R94.31 Abnormal electrocardiogram [ECG] [EKG]; R21 Rash and other nonspecific skin eruption; Z66 Do not resuscitate; Z79.01 Long term (current) use of anticoagulants; Z79.51 Long term (current) use of inhaled steroids; Z79.899 Other long term (current) drug therapy; Z86.16 Personal history of COVID-19; Z90.49 Acquired absence of other specified parts of digestive tract; Z93.3 Colostomy status; Z99.81 Dependence on supplemental oxygen
CPT/HCPCS: 36415; 36430; 36600; 70450; 71045; 80048; 80053; 80069; 80307; 81001; 82274; 82306; 82375; 82607; 82746; 82805; 82948; 83050; 83605; 83735; 84100; 84443; 84484; 85014; 85018; 85025; 85610; 85730; 86140; 86850; 86900; 86901; 86923; 87040; 87086; 92526; 92610; 93005; 93306; 94640; 96365; 96375; 99285; A9270; G0378; J0696; J1650; J1885; J3373; J3475; J7042; J7050; J7120; P9016; Q9957

== ENCOUNTER 2025-02-27 05:31 | Inpatient (IN) | payer MEDICARE, BC, MEDICAID, SELFPAY ==
[2025-02-27] VITALS (7 sets, daily range): BP systolic 91–151; BP diastolic 42–107; PULSE 66–96; RESP 10–36; TEMP 36.5–36.6; O2SAT 90–99; BMI 35.8
--- NOTE | ~2025-02-27 | CT_ITS ---
EXAMINATION: CT brain wo con DATE: 02/27/2025 09:03 INDICATION: Seizure TECHNIQUE: Computed tomography (CT) of the head was performed without intravenous contrast. Sagittal and coronal reconstructions were performed. The mA was adjusted according to patient size. Iterative reconstruction technique was employed. The dose-length product was 756.67 mGy-cm. COMPARISON: head CT dated 02/19/2025 FINDINGS: No acute intracranial hemorrhage, acute infarction or abnormal extra axial fluid collection. Small ol d lacunar infarct in the right frontal lobe gonzalez radiata. There is mild scattered white matter hypo attenuation consistent with chronic small vessel ischemic disease. Symmetric prominence of the sulci consistent with mild age-appropriate diffuse cerebral volume loss. Ventricles are normal and symmetr ic. No mass/mass effect. Changes of bilateral intraocular lens replacement. The orbits and mastoid ai r cells are normal. Small mucous retention cyst at the floor of the right maxillary sinus. IMPRESSION: 1. Unchanged small old lacunar infarct at the right frontal lobe gonzalez radiata. No acute intracrania l process. 2. Age-related changes including mild diffuse volume loss and mild scattered white matter hypoattenua tion consistent with chronic small vessel ischemic disease. Reviewed, dictated and finalized at location A. IMPRESSION: 1. Unchanged small old lacunar infarct at the right frontal lobe gonzalez radiata . No acute intracranial process. 2. Age-related changes including mild diffuse volume loss and mild scattered wh ite matter hypoattenuation consistent with chronic small vessel ischemic diseas e.
--- NOTE | ~2025-02-27 | CT_ITS ---
EXAMINATION: CTA BRAIN/CAROTID DATE: 03/01/2025 08:14 INDICATION: Strokelike symptoms. Altered mental status. TECHNIQUE: Computed tomographic angiography (CTA) of the head and neck was performed with 100 mL Omni paque-350 intravenous contrast. Multiplanar reconstructions and maximum intensity projection 3D-recon structions of the carotid arteries and of the intracranial arteries were created by the technologist on a separate workstation. Precontrast CT of the head was also obtained. Automated exposure control and iterative reconstruction technique were employed.The dose-length product was 2267.72 mGy-cm. COMPARISON: None. FINDINGS: Carotid arteries: Small region extending across the neck at the level of C2 is not diagnostically evaluated due to renetta re localized motion artifact at this level on the CT angiographic portion of the examination and not included within the [id number] of the head CT portion of the examination. The aortic arch and the great vessels arising from the arch are normal in caliber with no dissection or hemodynamically signi ficant stenosis. There is 40% stenosis of the right carotid bulb relative to normal distal artery lum en diameter (NASCET criteria). There is 60% stenosis of the left carotid bulb relative to normal dist al artery lumen diameter. Left vertebral artery is dominant. Multinodular goiter with nodules measuri ng up to 1.5 cm. There is additional 1.3 x 1.0 cm nodule posterior to the left thyroid lobe which cou ld represent pedunculated thyroid nodule, parathyroid adenoma or mildly enlarged lymph node. Severe s pondylosis at C5-C6. Mild emphysema at the apices of lungs. Head: No acute intracranial hemorrhage, acute infarction or abnormal extra axial fluid collection. There is mild scattered white matter hypoattenuation consistent with chronic small vessel ischemic disease. S ymmetric prominence of the sulci and ventricles consistent with mild age-appropriate diffuse cerebr al volume loss. Ventricles are normal and symmetric. No mass/mass effect. No abnormally enhancing bra in lesions on the postcontrast imaging. The orbits, paranasal sinuses and mastoid air cells are kamlesh l. Intracranial arteries Vertebral artery is dominant. Small amount of nonhemodynamically significant atherosclerotic plaque a t the bilateral carotid siphons. There is no hemodynamically significant stenosis in the vertebral, b asilar and internal carotid arteries. Both A1 and P1 segments are patent. There appears be a likely p atent anterior communicating artery. There are no aneurysms identified. Cerebral arterial arborizati on appears symmetric. IMPRESSION: 1. 40% stenosis of the right carotid bulb relative to normal distal artery lumen diameter (NASCET cri teria). 2. 60% stenosis of the left carotid bulb relative to normal distal artery lumen diameter. 3. Unremarkable cerebral CT angiogram with no hemodynamically significant stenosis, thrombosis or ane urysm. 4. Normal aging brain with mild diffuse volume loss and mild scattered white matter hypoattenuation c onsistent with chronic small vessel ischemic disease. No acute intracranial process or abnormally enh ancing brain lesions. 5. Small band extending across the level of the oral cavity and C2 which is not diagnostically evalua michelet due to motion artifact at this level. Reviewed, dictated and finalized at location A. IMPRESSION: 1. 40% stenosis of the right carotid bulb relative to normal distal artery lume n diameter (NASCET criteria). 2. 60% stenosis of the left carotid bulb relative to normal distal artery lumen diameter. 3. Unremarkable cerebral CT angiogram with no hemodynamically significant steno sis, thrombosis or aneurysm. 4. Normal aging brain with mild diffuse volume loss and mild scattered white ma tter hypoattenuation consistent with chronic small vessel ischemic disease. No acute intracranial process or abnormally enhancing brain lesions. 5. Small band extending across the level of the oral cavity and C2 which is not diagnostically evaluated due to motion artifact at this level.
--- NOTE | ~2025-02-27 | XR_ITS ---
MODIFIED ESOPHAGRAM HISTORY: Possible aspiration TECHNIQUE: Modified barium esophagram was performed on 03/02/2025. I administered fluoroscopy and perf ormed the exam with speech pathologist. Patient was seated for lateral fluoroscopic imaging for minna stion of thin liquids, pudding, solids and quantified amounts, followed by thin liquids in uncontroll ed amounts. This was recorded on tape. A single fluoroscopic spot image was also recorded. The DAP fo r this procedure was 1.632 Gycm2. The amount of fluoroscopy time used during this procedure was 2.2 m inutes. FINDINGS: Oral stage: Adequate function. Pharyngeal stage: Reduced laryngeal elevation. There is laryngeal penetration without aspiration. Cervical/esophageal stage: Adequate function. IMPRESSION: Laryngeal penetration without aspiration Please correlate with speech pathologist findin gs and specific feeding recommendations. Reviewed, dictated and finalized at location A. IMPRESSION: Laryngeal penetration without aspiration Please correlate with spe ech pathologist findings and specific feeding recommendations.
--- NOTE | ~2025-02-27 | XR_ITS ---
XR chest 1V 02/27/2025 09:09 Indication: Seizure Procedure: AP portable chest Comparison: 02/19/2025 Findings: There is developing patchy bilateral airspace disease, consistent with pneumonia. Consider aspiration. No pleural effusion or pneumothorax. Impression: 1: Developing patchy bilateral airspace disease, left greater than right. Findings compatible with pn eumonia. Consider aspiration. Reviewed, dictated and finalized at location A. Impression: 1: Developing patchy bilateral airspace disease, left greater than right. Findi ngs compatible with pneumonia. Consider aspiration.
--- NOTE | ~2025-02-27 | MR_ITS ---
EXAMINATION: MR brain/brain stem wo con DATE: 03/01/2025 11:28 INDICATION: Strokelike symptoms TECHNIQUE: Magnetic resonance imaging (MRI) of the brain and brainstem was performed without intraven ous contrast. Sequences included sagittal and axial T1-weighted SE, axial diffusion-weighted FS SE, a xial T2*-weighted GRE, axial T2-weighted FLAIR, and axial T2-weighted FSE. Apparent diffusion coeffic ient (ADC) maps were created. COMPARISON: Head CT and CT angiogram dated 02/28/2025 FINDINGS: There are no areas of restricted diffusion to suggest acute infarction. No intracranial hemorrhage or abnormal intracranial mass lesion. Mild scattered nonspecific increased T2-weighted signal intensity in the cerebral white matter, predominantly involving the deep and periventricular white matter. The re are no intraparenchymal signal abnormalities seen on the other pulse sequences. The ventricles are symmetric and normal in size. There are no abnormal extra-axial fluid collections. Flow voids are se en in the cerebral arteries on the T2-weighted sequences consistent with their expected patency. Left vertebral artery is dominant. Changes of bilateral intraocular lens replacement. Mild mucosal thick ening the bilateral ethmoid sinuses. Small mucous retention cyst at the inferior right maxillary sinu s. IMPRESSION: 1. Normal aging brain. No acute intracranial process. Reviewed, dictated and finalized at location A.
--- NOTE | ~2025-02-27 | CT_ITS ---
EXAMINATION: CT chest abdomen pelvis w con DATE: 03/01/2025 08:15 INDICATION: VRE bacteremia TECHNIQUE: Computed tomography (CT) of the chest, abdomen, and pelvis was performed with 100 mL Omnip aque-350 intravenous contrast. Automated exposure control and iterative reconstruction technique were employed. The dose-length product was 1716.11 mGy-cm. COMPARISON: 08/07/2022 FINDINGS: CHEST CT: Mild emphysema. There are some scattered mucous plugging in the bilateral lower lobes. Chronic volume loss in the left lower lobe. There is new patchy airspace opacity in the left lower lobe consistent with pneumonia. Groundglass opacities in the dependent upper lobes more likely related to atelectasis . No pulmonary edema or pleural effusion. Mild cardiomegaly. Atherosclerotic coronary artery calcific lesions. No pericardial effusion. Thoracic aorta is normal in caliber with no dissection. Multinodul ar goiter. No pathologically enlarged thoracic lymphadenopathy. Mild bilateral gynecomastia. Mild to moderate thoracic spondylosis. A few chronic appearing compression fractures at T6, T9, T11 and T12. ABDOMEN/PELVIS CT: A few small hepatic and splenic calcific lesions consistent with old granulomatous disease. Dilation of the common bile duct which measures up to 1.8 cm which tapers distally without evident obstructing stone or mass, likely related to prior cholecystectomy. No intrahepatic ductal or ductal dilation. P ancreas and bilateral adrenal glands are normal. There is some early contrast excretion within the bi lateral renal collecting systems. No hydronephrosis. There are bilateral renal cysts, the largest a 7 .9 cm rim calcified exophytic cyst arising from the lower pole of the left kidney. Postoperative hidalgo ge of prior subtotal colectomy with Abebe's pouch in the pelvis and a right lower quadrant and ileo stomy. No bowel obstruction. Gas and a Pereira catheter in the partially decompressed bladder. There is some wall thickening along the dependent aspect of the bladder which could be related to the partial ly decompressed state with differential including cystitis either acute or chronic. Likely prior pros tatectomy although evaluation of the deep pelvis in the region of the prostate is somewhat limited by dense metallic streak artifact related to a left hip bipolar type hemiarthroplasty and internal fixa tion for an old healed intertrochanteric fracture the proximal right femur. 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 Postoperative changes in the upper lumbar spine with cerclage wires about the L1 and L2 spinous processes. Solid osseous fusion across t he pubic symphysis. IMPRESSION: 1. Mild emphysema with left lower lobe pneumonia. 2. Common bile duct dilated to 1.8 cm which may be related to prior cholecystectomy with no intrahepa tic biliary ductal dilation. No obstructing stones or mass identified but would correlate with liver function tests and if clinically indicated could consider further evaluation with MRCP. 3. Wall thickening in the deep dependent bladder which could be related to partially decompressed sta te but also raises concern for cystitis either acute or chronic. Correlate with urinalysis. 4. Multinodular goiter. 5. 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 Reviewed, dictated and finalized at location A. IMPRESSION: 1. Mild emphysema with left lower lobe pneumonia. 2. Common bile duct dilated to 1.8 cm which may be related to prior cholecystec david with no intrahepatic biliary ductal dilation. No obstructing stones or mas s identified but would correlate with liver function tests and if clinically in dicated could consider further evaluation with MRCP. 3. Wall thickening in the deep dependent bladder which could be related to part ially decompressed state but also raises concern for cystitis either acute or c hronic. Correlate with urinalysis. 4. Multinodular goiter. 5. 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
--- NOTE | ~2025-02-27 | US_ITS ---
EXAMINATION:US venous doppler UE RT INDICATION:Swelling TECHNIQUE: Multiple grayscale, color flow and Doppler images of the right upper extremity deep venous systems were obtained and reviewed. COMPARISON:None available at this time FINDINGS: The jugular, subclavian, axillary, brachial, basilic, cephalic, radial and ulnar veins demo nstrate normal respiratory variation, augmentation and compressibility. IMPRESSION: 1: No right upper extremity deep venous thrombosis identified. Reviewed, dictated and finalized at location A.
--- OUTSIDE RECORDS SUMMARY | 2025-02-27 05:55 | XMS_ITS | Clinical Summary ---
Author Organization [facility] Address [address] [place] [address] Care Team Providers Care Home Health Aid Name Role Phone Ba Ramirez MD Primary Care Provider [phone] Source Comments [facility],non-owned Affiliates and Associated Physician Practices is amultiple site organization consisting of ambulatory clinics and hospital sitesin [place], [place], [place] and [place]. This disclosure is being madepursuant to the Care Everywhere program and may not contain all information available regarding this patient. Last updated 18.[facility] Social History Tobacco Use Types Packs/Day Years Used Date Smoking Tobacco: Never Assessed Sex and Gender Information Value Date Recorded Sex Assigned at Not on file Legal Sex Male 2:21 PM [employer] Gender Identity Not on file Sexual Orientation [...] age to complete this topic Insurance MEDICARE [facility] MEDICAID - [place] MEDICARE [facility] Care Teams Home Health Aid Relationship Specialty Start Date End Date Ba Ramirez MD [address] [place] [address] PCP - General Internal Medicine 09/08/19
--- OUTSIDE RECORDS SUMMARY | 2025-02-27 05:55 | XMS_ITS | Clinical Summary ---
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 Name Role Phone Ba Ramirez MD Primary Care Provider [phone] Allergies Active Allergy Reactions Criticality Noted Date [...] by mouth daily 0 Active nystatin (MYCOSTATIN) 936192 UNIT/GM powder Apply topically 2 times daily [...] Comments Blood Pressure 136/78 06/09/2022 9:10 AM SPECIAL NEEDS LIBRARIAN Pulse - - Temperature 36.2 C (97.2 F) 06/09/2022 9:10 AM SPECIAL NEEDS LIBRARIAN Respiratory Rate 18 06/09/2022 9:10 AM [facility] NEEDS LIBRARIAN Oxygen Saturation - - Inhaled Oxygen Concentration - - Weight 136 kg (300 lb) 06/09/2022 9:10 AM SPECIAL NEEDS LIBRARIAN Height 188 cm (6' 2) 06/09/2022 9:10 AM SPECIAL NEEDS LIBRARIAN Body Mass Index 38.52 06/09/2022 9:10 AM SPECIAL NEEDS LIBRARIAN Plan of Treatment Health Maintenance Due Date Last Done Comments COVID-19 Vaccine ( season) 2024 Influenza Vaccine (#1) 2025 04/19/2019 Pneumococcal PPSV23/PCV13 65 + Years / Low and Medium Risk Completed 08/15/2019, 06/07/2015, 05/02/2004 [place] [address] MEDICARE MEDICAID - [place] Care Teams Forestry Crew Chief Relationship Specialty Start Date End Date Ba Ramirez MD [address] [place] [id number] PCP - General Internal Medicine 11/26/20
--- OUTSIDE RECORDS SUMMARY | 2025-02-27 05:55 | XMS_ITS | Clinical Summary ---
[facility] Address [address] [place] [address] Care Team Providers Care Machine Repair Person Name Role Phone Ba Ramirez MD Primary Care Provider [phone] Allergies Active Allergy Reactions Criticality Noted Date [...] Encounters Date Type Department Care Team Description 02/20/2025 Orders Only [facility] Oncology and Hematology - [place] [address] [place] [address] Jose Arias MD Chronic anemia 02/06/2025 Orders Only [facility] Oncology and Hematology - [place] [address] [place] [address] Jose Arias MD Chronic anemia 02/01/2025 External Device Data [facility] ABSTRACTION Provider, Abstract 01/31/2025 External Device Data [facility] Provider, Abstract 01/23/2025 Orders Only [facility] Oncology and Hematology - [place] [address] [place] [address] Jose Arias MD Chronic anemia 01/17/2025 External Device Data [facility] ABSTRACTION Provider, Abstract 01/09/2025 Orders Only [facility] Oncology and Hematology - [place] [address] Jose Arias MD Chronic anemia 12/29/2024 Orders Only [facility] Oncology and Hematology - [place] [address] [place] [address] Jose Arias MD 12/28/2024 9:45 AM CDT Office Visit [facility] Oncology and Hematology - [place] [address] [place] [phone] Jose Arias MD Chronic anemia (Primary Dx) 12/28/2024 Orders Only [facility] Oncology and Hematology - [place] [address] Jose Arias MD 12/26/2024 Orders Only [facility] Oncology and Hematology - [place] [address] [place] [phone] Jose Arias MD Chronic anemia 12/12/2024 Orders Only [facility] Oncology and Hematology - [place] [address] Jose Arias MD Chronic anemia 12/06/2024 External Device Data [facility] ABSTRACTION Provider, Abstract 12/01/2024 Orders Only [facility] Oncology and Hematology - [place] [address] [place] [phone] Jose Arias MD 11/28/2024 Orders Only [facility] Oncology and Hematology - [place] [address] [place] [id number] Jose Arias MD Chronic anemia from Last [...] Care Team (Late st Contact Info) Description 03/22/2025 9:30 AM CDT Office Visit [facility] Oncology and Hematology - [place] [address] [place] [address] Carlota Gama MD [address] [place] [address] Health Maintenance Due Date Last [...] Resu lt from Last 3 Months Insurance MEDICAID [place] MEDICARE PART A AND B BCBS SUPP Advance Directives For more information, please contact: [phone] Documents on File Type Date Recorded Patient Brick Pointer Expl anation Advance Directive POA 02/17/2024 8:01 AM A dvance Directive POA Care Teams Machine Repair Person Relationship Specialty Start Date End Date Ba Ramirez MD PCP - General Internal Medicine 06/17/22
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
--- NOTE | 2025-02-27 07:20 | PCCCNOTE ---
Called to the ED d/t pt. being postictal and ED MD requesting [facility] to evaluate for GIP. He is currently under their service. Call placed, a nurse will be here to evaluate pt. Pt's daughter, Cristiane, updated on plan.
--- NOTE | 2025-02-27 08:49 | ECG_ITS ---
Test Date: 2025-02-27 09:17:11 Measurements Intervals [place] Rate: 71 P: 42 NC: 154 QRS: 11 QRSD: 108 T: 24 QT: 387 QTc: 422 Interpretive Statements SINUS RHYTHM DELAYED PRECORDIAL R/S TRANSITION CONSIDER INFERIOR INFARCT, AGE INDETERMINATE ABNORMAL ECG Compared to ECG 02/22/2025 08:51:33 Intraventricular conduction delay no longer present Electronically Signed On 02-27-2025 09:19:42 CDT by Wang Bhagat D.O.
--- NOTE | 2025-02-27 09:04 | PC.NURSE ---
Patient in CT. Will obtain EKG when patient returns to ED
--- NOTE | 2025-02-27 09:23 | PC.NURSE ---
Attempted IV with no luck. vascular access called to obtain IV.
[2025-02-27 10:03] LABS: Hematocrit 29.5 % (42.0-52.0); Hemoglobin 9.3 g/dL (14.0-18.0); Immature Granulocyte Percent A 0.7 % (0-0.5); Lymphocytes Absolute Auto 0.72 K/mm3 (0.9-3.2); Mean Corpuscular HGB Conc 31.5 g/dl (32-36); Mean Corpuscular Hemoglobin 27.7 pg (26-34); Mean Corpuscular Volume 87.8 fl (80-100); Nucleated Red Blood Cells Absolute Auto 0.000 K/mm3 (0.0-0.012); Nucleated Red Blood Cells Perc 0.0 % (0.0-0.2); Platelet Count Result 307 k/mm3 (150-375); Red Blood Count 3.36 M/mm3 (4.6-6.20); White Blood Count 14.0 K/mm3 (4.5-10.0)
[2025-02-27 10:18] LABS: INR 1.1; Prothrombin Time 14.7 Seconds (11.1-14.7)
[2025-02-27 10:19] LABS: Partial Thromboplastin Time 26.3 Seconds (22.3-36.8)
[2025-02-27 10:32] LABS: Alanine Aminotransferase 157 U/L (6-50); Albumin Level 3.5 g/dL (3.5-5.1); Alkaline Phosphatase 358 U/L (38-126); Anion Gap 7 mmol/L (4-12); Aspartate Amino Transferase 98 U/L (17-59); Bilirubin,Total 0.6 mg/dL (0.2-1.3); Blood Urea Nitrogen 27 mg/dL (9-20); Calcium 8.9 mg/dL (8.4-10.2); Carbon Dioxide 28 mmol/L (22-30); Chloride 101 mmol/L (98-107); Estimated CRCL calculation 63 ml/min; Estimated Glomerular Filt Rate 54; Glucose 113 mg/dL (65-110); Magnesium 1.4 mg/dL (1.6-2.3); Potassium 4.3 mmol/L (3.4-5.0); Sodium 136 mmol/L (137-145); Total Protein 7.8 g/dL (6.3-8.2); Troponin I 0.050 ng/mL (0.000-0.034)
--- NOTE | 2025-02-27 10:48 | PC.NURSE ---
Patient responds to painful stimuli. Patient on room air and his vital signs are stable. Patient having episodes of apnea lasting approx 10 seconds. Provider aware of this.
[2025-02-27 11:13] LABS: Add Urine Microscopic? YES; Appearance Urine Turbid (Clear); Glucose Urine UA Negative (Negative); Leukocyte Esterase Ur 3+ LEU/UL (Negative); Need Manual Microscopic Reviewed; Nitrate Urine Negative (Negative); Non Pathogenic Casts >20; Specific Grav Ur 1.022 (1.001-1.035)
[2025-02-27] MEDS: levETIRAcetam 1500MG/NACL100ML 1,500 MG/100 ML BAG 400 MG IVPB (12:24)
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
--- NOTE | 2025-02-27 14:19 | ADMGEN ---
This patient, Bob Simmons, was admitted to [facility] Room 329-01. Patient/family oriented to hospital policies and general routines including ID bracelet, bed and alarms, visiting hours, pain management, procedures, bathroom and other care routines, personal items, smoking policy, room service/diet, and visiting hours. Information on how to activate the Rapid Response Team has been discussed. Patient/Family are encouraged to report perceived risks to care and to ask questions if they do not understand what they are told or what they should do.
[2025-02-27] MEDS: SODIUM CHLORIDE 0.9% IV 1,000 ML 100 ML IV CONT (14:34)
[2025-02-27] MEDS: MAGNESIUM SULF 1 GM/D5W 100 ML 1 GM/100 ML BAG IVPB (14:34)
[2025-02-27 15:51] LABS: Troponin I 0.059 ng/mL (0.000-0.034)
[2025-02-27] MEDS: LINEZOLID 600 MG/300 ML 600 MG/300 ML SOLN 300 MG IVPB (16:10)
--- NOTE | 2025-02-27 19:00 | PC.NURSE ---
call to [facility] to review med list, pt had just been admitted to hospice care on 02/26/2025 and the tubing oiler had not had a chance to update his med list so current list was entered from the records provided
[2025-02-27 19:48] LABS: Troponin I 0.058 ng/mL (0.000-0.034)
[2025-02-27] MEDS: ALBUMIN HUMAN 25% 25 GM/100 ML 200 ML IVPB (21:43)
[2025-02-28] MEDS: SODIUM CHLORIDE 0.9% IV 1,000 ML 75 ML IV CONT ×2 (00:47→19:32)
[2025-02-28] MEDS: LORazepam INJ (*CRX) 2 MG/ML VIAL IV PUSH (04:26)
[2025-02-28] MEDS: LINEZOLID 600 MG/300 ML 600 MG/300 ML SOLN 300 MG IVPB (05:15)
[2025-02-28 06:00] VITALS: BP 148/46; PULSE 81; RESP 18; TEMP 36.4; O2SAT 96
[2025-02-28 06:11] LABS: Hematocrit 26.7 % (42.0-52.0); Hemoglobin 8.2 g/dL (14.0-18.0); Immature Granulocyte Percent A 0.5 % (0-0.5); Lymphocytes Absolute Auto 1.33 K/mm3 (0.9-3.2); Mean Corpuscular HGB Conc 30.7 g/dl (32-36); Mean Corpuscular Hemoglobin 27.5 pg (26-34); Mean Corpuscular Volume 89.6 fl (80-100); Nucleated Red Blood Cells Absolute Auto 0.000 K/mm3 (0.0-0.012); Nucleated Red Blood Cells Perc 0.0 % (0.0-0.2); Platelet Count Result 222 k/mm3 (150-375); Red Blood Count 2.98 M/mm3 (4.6-6.20); White Blood Count 10.3 K/mm3 (4.5-10.0)
[2025-02-28 06:35] LABS: Anion Gap 8 mmol/L (4-12); Blood Urea Nitrogen 29 mg/dL (9-20); Calcium 8.9 mg/dL (8.4-10.2); Carbon Dioxide 24 mmol/L (22-30); Chloride 102 mmol/L (98-107); Estimated CRCL calculation 61 ml/min; Estimated Glomerular Filt Rate 52; Glucose 125 mg/dL (65-110); Potassium 4.7 mmol/L (3.4-5.0); Sodium 134 mmol/L (137-145)
--- NOTE | 2025-02-28 08:13 | P.PNIM_ITS ---
Progress Note: A&P Assessment and Plan (1) Stroke-like symptoms: Code(s): R29.90 - Unspecified symptoms and signs involving the nervous system Status: Acute Assessment and Plan: - presented with grand mal seizure with subsequent altered mental status and right-sided weakness. LKW was 02/27 early AM - history of AFib on Eliquis - CT head no acute process - Differential - CVA vs. James's paralysis - rectal ASA due to inability to take PO. Resume Eliquis when able to take PO and no concern for hemorrhagic conversion of stroke on imaging. - neurology consulted, recommended MRI brain. CTA head and neck also ordered. - continue neuro checks - family requesting potential tansfer to Court pending work-up if further intervention warranted (2) Seizure: Code(s): R56.9 - Unspecified convulsions Status: Acute Assessment and Plan: -presented with 20 minutes of focal seizure activity that became generalized per skilled nursing. - per neuro, current tremoring not consistent with seizures - received Keppra load and diazepam - continue IV Keppra -EEG pending if patient able to tolerate - MRI and CTA as above - seizure precautions (3) Aspiration pneumonia: Code(s): J69.0 - Pneumonitis due to inhalation of food and vomit Status: Acute Assessment and Plan: - Strict NPO - Swallow evaluation - IV Unasyn - Blood cultures pending (4) Bacteremia: Code(s): R78.81 - Bacteremia Status: Acute Assessment and Plan: - recent hospitalization. Blood culture 02/19 grew VRE. Was discharged on PO linezolid x7 days on hospice. Unclear source. - repeat blood cultures pending - ID is following - recommended to stop Linezolid for now. Await repeat cultures - CT C/A/P pending (5) Acute UTI: Code(s): N39.0 - Urinary tract infection, site not specified Status: Acute Assessment and Plan: -patient with recent admission for UTI, received Rocephin x5 days. Urine culture was negative - UA with 3+ LE, >100 WBC, 2+ bacteria, many squamous cells - last urine culture with Klebsiella and E coli, both sensitive to Augmentin - unclear if true UTI, urine culture is pending - continue Unasyn in setting of aspiration (6) Hypertension: Qualifiers: Hypertension type: unspecified Qualified Code(s): I10 - Essential (primary) hypertension Code(s): I10 - Essential (primary) hypertension Status: Chronic Assessment and Plan: -permissive HTN for now -resume home meds as able (7) CHF (congestive heart failure): Code(s): I50.9 - Heart failure, unspecified Status: Chronic Assessment and Plan: - gentle IV fluids while NPO - monitor volume status (8) Elevated troponin: Code(s): R77.8 - Other specified abnormalities of plasma proteins Status: Acute Assessment and Plan: -Trend troponin -P.r.n. EKG - appears chronically elevated (9) Hypothyroid: Qualifiers: Hypothyroidism type: unspecified Qualified Code(s): E03.9 - Hypothyroidism, unspecified Code(s): E03.9 - Hypothyroidism, unspecified Status: Acute Assessment and Plan: - resume Synthroid as able (10) Hypomagnesemia: Code(s): E83.42 - Hypomagnesemia Status: Acute Assessment and Plan: - received replacement - recheck in AM (11) Neurogenic bladder: Code(s): N31.9 - Neuromuscular dysfunction of bladder, unspecified Status: Acute Assessment and Plan: -Chronic Pereira (12) Paroxysmal atrial fibrillation: Code(s): I48.0 - Paroxysmal atrial fibrillation Status: Acute Assessment and Plan: - PO meds including diltiazem and Eliquis on hold, resume as able Subjective Date/time seen: 02/28/25 08:13 Interval history: 74-year-old male past medical history of end-stage congestive heart failure, AFib, COPD, hypothyroidism,, paraplegia, presents the hospital seizures. Patient seen and examined at bedside. Noted to have rhythmic motion of the LUE, not consistent with seizure as distractible per neuro. Right side is weak with facial droop. LKW is yesterday morning prior to seizure per nursing and ER documentation. Did confirm patient with patient's POA that patient is DNR, DNI - want work-up for infection and CVA/seizure. Review of Systems Review of Systems: All systems reviewed & are unremarkable except as noted in HPI and below Exam Narrative: General: ill-appearing Eyes: EOMI ENT: neck supple Cardiovascular: Regular rate and rhythm Respiratory: Clear to auscultation, respirations even and unlabored on RA Gastrointestinal: Soft, non tender Genitourinary: no suprapubic tenderness Musculoskeletal: No edema Skin: warm, dry Neuro: Drowsy, agitated. Arouses to name. PEERL. R facial weakness. Speech garbled. Tremor of L side. Chronic bilateral LE weakness RUE with minimal withdrawal to pain. Psych: Mood appropriate Objective Data Vital Signs Vital Signs: Vital Signs - 24 hr 02/27/25 08:45 02/27/25 12:30 02/27/25 13:00 Temperature Pulse Rate 75 96 80 Respiratory Rate 17 22 H 10 L Blood Pressure 151/49 H 119/62 91/42 L Pulse Oximetry 96 99 99 Oxygen Delivery 02/27/25 20:00 02/27/25 21:35 02/28/25 06:00 Temperature 97.7 F 97.6 F Pulse Rate 66 81 Respiratory Rate 20 18 Blood Pressure 105/56 L 148/46 H Pulse Oximetry 98 96 Oxygen Delivery Room Air Intake/Output Intake/Output: Intake & Output 02/25/25 02/26/25 02/27/25 02/28/25 23:59 23:59 23:59 23:59 Intake Total 500 1000 Output Total 200 250 Balance 300 750 Meds/Results Medications: Active Medications Generic Name Dose Route Start Last Admin Trade Name Freq PRN Reason Stop Dose Admin Acetaminophen 650 mg 02/27/25 12:33 Acetaminophen 650 Mg Suppository RECTAL Q6H PRN Mild Pain (1-3) or Fever Diltiazem HCl 10 mg 02/28/25 06:00 02/28/25 06:23 Diltiazem Hcl Inj 25 Mg/5 Ml Vial IV PUSH 10 mg Q8HR VAIBHAV Administration Enoxaparin Sodium 40 mg 02/28/25 09:00 Enoxaparin 40 Mg/0.4 Ml Syringe SUB-Q DAILY VAIBHAV Levetiracetam 750 mg/ Dextrose 107.5 mls @ 430 mls/hr 02/27/25 21:00 02/27/25 21:02 IVPB 430 mls/hr Q12HR VAIBHAV Administration Sodium Chloride 1,000 mls @ 75 mls/hr 02/27/25 14:05 02/28/25 00:47 Normal Saline Iv IV CONT 75 mls/hr .[id number] VAIBHAV Administration Linezolid 600 mg in 300 mls @ 300 mls/hr 02/28/25 06:00 02/28/25 05:15 Zyvox IVPB 300 mls/hr Q12H VAIBHAV Administration Levothyroxine Sodium 12.5 mcg 02/28/25 06:30 02/28/25 05:31 Levothyroxine Sodium Inj 100 Mcg/5 Ml Vial IV PUSH Not Given DAILY@0630 [facility] Lorazepam 2 mg 02/27/25 23:03 02/28/25 04:26 Lorazepam Inj (*Crx) 2 Mg/Ml Vial IV PUSH 2 mg Q6H PRN Administration seizure Radiology Results: ITS Impressions Chest X-Ray 02/27/25 09:16 Impression: 1: Developing patchy bilateral airspace disease, left greater than right. Findings compatible with pneumonia. Consider aspiration. Head CT 02/27/25 09:24 IMPRESSION: 1. Unchanged small old lacunar infarct at the right frontal lobe gonzalez radiata. No acute intracranial process. 2. Age-related changes including mild diffuse volume loss and mild scattered white matter hypoattenuation consistent with chronic small vessel ischemic disease. Labs Labs: Laboratory Results - last 24 hr 02/27/25 02/27/25 02/27/25 09:51 09:52 10:51 WBC 14.0 H RBC 3.36 L Hgb 9.3 L Hct 29.5 L MCV 87.8 MCH 27.7 MCHC 31.5 L RDW 16.4 H Plt Count 307 MPV 9.4 Immature Gran % (Auto) 0.7 H Neut % (Auto) 89.4 H Lymph % (Auto) 5.2 L Star[place] % (Auto) 4.1 Eos % (Auto) 0.2 Baso % (Auto) 0.4 Lymph # (Auto) 0.72 L [place] # (Auto) 0.6 Eos # (Auto) 0.0 Baso # (Auto) 0.1 Abs Immat Gran (auto) 0.10 H Absolute Neuts (auto) 12.5 H Absolute Nucleated RBC 0.000 Nucleated RBC % 0.0 PT 14.7 INR 1.1 APTT 26.3 Sodium 136 L Potassium 4.3 Chloride 101 Carbon Dioxide 28 Anion Gap 7 BUN 27 H Creatinine 1.30 Estim Creat Clear Calc 63 Estimated GFR 54 L Glucose 113 H Lactic Acid 1.3 Calcium 8.9 Magnesium 1.4 L Total Bilirubin 0.6 AST 98 H ALT 157 H Alkaline Phosphatase 358 H Troponin I 0.050 H* Total Protein 7.8 Albumin 3.5 Urine Color Dark yellow Urine Appearance Turbid H Urine pH 5.0 Ur Specific [place] 1.022 Urine Protein 3+ H Urine Glucose (UA) Negative Urine Ketones Trace H Ur Blood (Man) 2+ H Urine Nitrate Negative Urine Bilirubin Negative Urine Urobilinogen 0.2 Add Ur Microanalysis Reviewed Leukocyte Esterase Rfl 3+ H Urine RBC 51-100 H Urine WBC >100 H Ur Squamous Epith Cells Many H Urine Bacteria 2+ H Urine Casts >20 02/27/25 02/27/25 02/28/25 15:21 19:14 06:06 WBC 10.3 H RBC 2.98 L Hgb 8.2 L Hct 26.7 L MCV 89.6 MCH 27.5 MCHC 30.7 L RDW 17.1 H Plt Count 222 MPV 9.5 Immature Gran % (Auto) 0.5 Neut % (Auto) 77.8 H Lymph % (Auto) 13.0 L [place] % (Auto) 7.0 Eos % (Auto) 1.1 Baso % (Auto) 0.6 Lymph # (Auto) 1.33 [place] # (Auto) 0.7 H Eos # (Auto) 0.1 Baso # (Auto) 0.1 Abs Immat Gran (auto) 0.05 H Absolute Neuts (auto) 8.0 H Absolute Nucleated RBC 0.000 Nucleated RBC % 0.0 PT INR APTT Sodium 134 L Potassium 4.7 Chloride 102 Carbon Dioxide 24 Anion Gap 8 BUN 29 H Creatinine 1.33 H Estim Creat Clear Calc 61 Estimated GFR 52 L Glucose 125 H Lactic Acid Calcium 8.9 Magnesium Total Bilirubin AST ALT Alkaline Phosphatase Troponin I 0.059 H* 0.058 H* Total Protein Albumin Urine Color Urine Appearance Urine pH Ur Specific [place] Urine Protein Urine Glucose (UA) Urine Ketones Ur Blood (Man) Urine Nitrate Urine Bilirubin Urine Urobilinogen Add Ur Microanalysis Leukocyte Esterase Rfl Urine RBC Urine WBC Ur Squamous Epith Cells Urine Bacteria Urine Casts Quality VTE Prophylaxis VTE prophylaxis: pharmacologic ordered
[2025-02-28] MEDS: AMPICILLIN SODIUM/SULBACTAM 1.5 GM in SODIUM CHLORIDE 0.9% IV 50 ML IVPB ×3 (09:42→21:03)
[2025-02-28] MEDS: ENOXAPARIN 40 MG/0.4 ML SYRINGE SUB-Q (09:44)
[2025-02-28] MEDS: LEVOTHYROXINE SODIUM INJ 100 MCG/5 ML VIAL 12.5 MCG IV PUSH (09:55)
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
[2025-02-28 14:00] VITALS: BP 154/62; PULSE 85; RESP 17; TEMP 36.3; O2SAT 96
--- NOTE | 2025-02-28 14:32 | PCNEURO ---
Entered room this AM to perform EEG. Pt was continuously moving head/upper body.. Manager General said that he was trying to itch is osto. (sp?) bag. Will attempt at a later time.
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
[2025-02-28] MEDS: LORazepam INJ (*CRX) 2 MG/ML VIAL 1 MG IV PUSH (14:55)
[2025-02-28] MEDS: ASPIRIN 300 MG SUPPOSITORY RECTAL (17:28)
[2025-02-28 20:00] VITALS: PULSE 94
[2025-02-28 20:35] VITALS: PULSE 85
[2025-02-28 21:29] VITALS: BP 170/79; PULSE 98; RESP 18; TEMP 37.4; O2SAT 98
[2025-03-01] VITALS (9 sets, daily range): BP systolic 134–148; BP diastolic 55–60; PULSE 79–102; RESP 20; TEMP 36.5–37; O2SAT 94–96
[2025-03-01] MEDS: AMPICILLIN SODIUM/SULBACTAM 1.5 GM in SODIUM CHLORIDE 0.9% IV 50 ML IVPB ×4 (02:17→20:54)
[2025-03-01 06:47] LABS: Hematocrit 26.2 % (42.0-52.0); Hemoglobin 8.2 g/dL (14.0-18.0); Immature Granulocyte Percent A 0.3 % (0-0.5); Lymphocytes Absolute Auto 1.14 K/mm3 (0.9-3.2); Mean Corpuscular HGB Conc 31.3 g/dl (32-36); Mean Corpuscular Hemoglobin 27.4 pg (26-34); Mean Corpuscular Volume 87.6 fl (80-100); Nucleated Red Blood Cells Absolute Auto 0.000 K/mm3 (0.0-0.012); Nucleated Red Blood Cells Perc 0.0 % (0.0-0.2); Platelet Count Result 222 k/mm3 (150-375); Red Blood Count 2.99 M/mm3 (4.6-6.20); White Blood Count 9.3 K/mm3 (4.5-10.0)
[2025-03-01 07:14] LABS: Anion Gap 8 mmol/L (4-12); Blood Urea Nitrogen 22 mg/dL (9-20); Calcium 8.6 mg/dL (8.4-10.2); Carbon Dioxide 24 mmol/L (22-30); Chloride 104 mmol/L (98-107); Estimated CRCL calculation 72 ml/min; Estimated Glomerular Filt Rate > 60; Glucose 95 mg/dL (65-110); Magnesium 1.6 mg/dL (1.6-2.3); Potassium 4.1 mmol/L (3.4-5.0); Sodium 136 mmol/L (137-145)
[2025-03-01] MEDS: ENOXAPARIN 40 MG/0.4 ML SYRINGE SUB-Q (09:28)
[2025-03-01] MEDS: SODIUM CHLORIDE 0.9% IV 1,000 ML 75 ML IV CONT (12:30)
--- NOTE | 2025-03-01 12:52 | WPDNEUROPN ---
Subjective Date/time seen: 03/01/25 12:52 Interval history: follow-up with ongoing history of 1. Atrial fibrillation 2. COPD 3. Hypothyroidism 4. Paraplegia 5. Neurogenic bladder 6. Possibility of the recurrent focal seizure 7. History of recent placement in the hospice subsequent cancellation and as per the family's request to re-evaluate the status. Receiving Keppra 1000mg twice a day. Patient was continued on Keppra 1000mg twice a day. He was noted to have recurrent movements of left upper extremity on yesterday's exam. But today's completely relax able to follow the instruction and was able to soft see thel movements of the hand as well. MRI of the brain has been reviewed repeated. Objective Data Vital Signs Vital Signs: Vital Signs - 24 hr 02/28/25 14:00 02/28/25 20:00 02/28/25 20:35 Temperature 36.3 C L Pulse Rate 85 94 Respiratory Rate 17 Blood Pressure 154/62 H Pulse Oximetry 96 Oxygen Delivery Room Air 02/28/25 20:35 02/28/25 21:29 03/01/25 00:00 Temperature 37.4 C Pulse Rate 85 98 99 Respiratory Rate 18 Blood Pressure 170/79 H Pulse Oximetry 98 Oxygen Delivery 03/01/25 04:00 03/01/25 06:00 Temperature 37.0 C Pulse Rate 102 H 80 Respiratory Rate 20 Blood Pressure 140/60 Pulse Oximetry 95 Oxygen Delivery Intake/Output Intake/Output: Intake & Output 02/26/25 02/27/25 02/28/25 03/01/25 23:59 23:59 23:59 23:59 Intake Total 607.5 2365.0 157.5 Output Total 200 1000 1200 Balance 407.5 1365.0 -1042.5 Meds/Results Medications: Active Medications Generic Name Dose Route Start Last Admin Trade Name Freq PRN Reason Stop Dose Admin Acetaminophen 650 mg 02/27/25 12:33 Acetaminophen 650 Mg Suppository RECTAL Q6H PRN Mild Pain (1-3) or Fever Aspirin 300 mg 02/28/25 14:20 02/28/25 17:28 Aspirin 300 Mg Suppository RECTAL 300 mg DAILY VAIBHAV Administration Enoxaparin Sodium 40 mg 03/01/25 09:00 03/01/25 09:28 Enoxaparin 40 Mg/0.4 Ml Syringe SUB-Q 40 mg DAILY VAIBHAV Administration Levetiracetam 750 mg/ Dextrose 107.5 mls @ 430 mls/hr 02/27/25 21:00 03/01/25 09:16 IVPB Infused Q12HR VAIBHAV Infusion Sodium Chloride 1,000 mls @ 75 mls/hr 02/27/25 14:05 02/28/25 19:32 Normal Saline Iv IV CONT 75 mls/hr .[id number] VAIBHAV Administration Ampicillin Sodium/Sulbactam 50 mls @ 100 mls/hr 02/28/25 09:00 03/01/25 09:27 Sodium 1.5 gm/ Sodium Chloride IVPB 100 mls/hr Q6H VAIBHAV Administration Lorazepam 2 mg 02/27/25 23:03 02/28/25 04:26 Lorazepam Inj (*Crx) 2 Mg/Ml Vial IV PUSH 2 mg Q6H PRN Administration seizure Radiology Results: ITS Impressions Chest X-Ray 02/27/25 09:16 Impression: 1: Developing patchy bilateral airspace disease, left greater than right. Findings compatible with pneumonia. Consider aspiration. Head CT 02/27/25 09:24 IMPRESSION: 1. Unchanged small old lacunar infarct at the right frontal lobe gonzalez radiata. No acute intracranial process. 2. Age-related changes including mild diffuse volume loss and mild scattered white matter hypoattenuation consistent with chronic small vessel ischemic disease. Head/Neck CTA 03/01/25 08:27 IMPRESSION: 1. 40% stenosis of the right carotid bulb relative to normal distal artery lumen diameter (NASCET criteria). 2. 60% stenosis of the left carotid bulb relative to normal distal artery lumen diameter. 3. Unremarkable cerebral CT angiogram with no hemodynamically significant stenosis, thrombosis or aneurysm. 4. Normal aging brain with mild diffuse volume loss and mild scattered white matter hypoattenuation consistent with chronic small vessel ischemic disease. No acute intracranial process or abnormally enhancing brain lesions. 5. Small band extending across the level of the oral cavity and C2 which is not diagnostically evaluated due to motion artifact at this level. Chest/Abdomen/Pelvis CT 03/01/25 10:22 IMPRESSION: 1. Mild emphysema with left lower lobe pneumonia. 2. Common bile duct dilated to 1.8 cm which may be related to prior cholecystectomy with no intrahepatic biliary ductal dilation. No obstructing stones or mass identified but would correlate with liver function tests and if clinically indicated could consider further evaluation with MRCP. 3. Wall thickening in the deep dependent bladder which could be related to partially decompressed state but also raises concern for cystitis either acute or chronic. Correlate with urinalysis. 4. Multinodular goiter. 5. 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 Brain MRI 03/01/25 12:41 IMPRESSION: 1. Normal aging brain. No acute intracranial process. Labs Labs: Laboratory Results - last 24 hr 03/01/25 03/01/25 03/01/25 00:02 05:59 06:22 WBC 9.3 RBC 2.99 L Hgb 8.2 L Hct 26.2 L MCV 87.6 MCH 27.4 MCHC 31.3 L RDW 16.7 H Plt Count 222 MPV 9.3 Immature Gran % (Auto) 0.3 Neut % (Auto) 75.9 H Lymph % (Auto) 12.3 L [place] % (Auto) 8.7 H Eos % (Auto) 2.3 Baso % (Auto) 0.5 Lymph # (Auto) 1.14 [place] # (Auto) 0.8 H Eos # (Auto) 0.2 Baso # (Auto) 0.1 Abs Immat Gran (auto) 0.03 Absolute Neuts (auto) 7.0 H Absolute Nucleated RBC 0.000 Nucleated RBC % 0.0 Sodium 136 L Potassium 4.1 Chloride 104 Carbon Dioxide 24 Anion Gap 8 BUN 22 H Creatinine 1.12 Estim Creat Clear Calc 72 Estimated GFR > 60 Glucose 95 POC Capillary Glucose 90 91 Calcium 8.6 Magnesium 1.6
[2025-03-01] MEDS: ASPIRIN 300 MG SUPPOSITORY RECTAL (13:11)
[2025-03-01] MEDS: DEXTROSE 5%/0.9% SOD CHL 1,000 ML 75 ML IV CONT (13:58)
--- NOTE | 2025-03-01 14:27 | P.PNIM_ITS ---
Progress Note: A&P Assessment and Plan (1) Stroke-like symptoms: Code(s): R29.90 - Unspecified symptoms and signs involving the nervous system Status: Acute Assessment and Plan: - presented with grand mal seizure with subsequent altered mental status and right-sided weakness. LKW was 02/27 early AM - history of AFib on Eliquis - CT head no acute process - Differential - CVA vs. James's paralysis - rectal ASA due to inability to take PO. Resume Eliquis when able to take PO and no concern for hemorrhagic conversion of stroke on imaging. - neurology consulted, recommended MRI brain. CTA head and neck also ordered. - continue neuro checks - family requesting potential tansfer to Court pending work-up if further intervention warranted (2) Seizure: Code(s): R56.9 - Unspecified convulsions Status: Acute Assessment and Plan: -presented with 20 minutes of focal seizure activity that became generalized per prison. - per neuro, current tremoring not consistent with seizures - received Keppra load and diazepam - continue IV Keppra -EEG pending if patient able to tolerate - MRI and CTA as above - seizure precautions (3) Aspiration pneumonia: Code(s): J69.0 - Pneumonitis due to inhalation of food and vomit Status: Acute Assessment and Plan: - Strict NPO - Swallow evaluation - IV Unasyn - Blood cultures pending (4) Bacteremia: Code(s): R78.81 - Bacteremia Status: Acute Assessment and Plan: - recent hospitalization. Blood culture 02/19 grew VRE. Was discharged on PO linezolid x7 days on hospice. Unclear source. - repeat blood cultures pending - ID is following - recommended to stop Linezolid for now. Await repeat cultures - CT C/A/P pending (5) Acute UTI: Code(s): N39.0 - Urinary tract infection, site not specified Status: Acute Assessment and Plan: -patient with recent admission for UTI, received Rocephin x5 days. Urine culture was negative - UA with 3+ LE, >100 WBC, 2+ bacteria, many squamous cells - last urine culture with Klebsiella and E coli, both sensitive to Augmentin - unclear if true UTI, urine culture is pending - continue Unasyn in setting of aspiration (6) Hypertension: Qualifiers: Hypertension type: unspecified Qualified Code(s): I10 - Essential (primary) hypertension Code(s): I10 - Essential (primary) hypertension Status: Chronic Assessment and Plan: -permissive HTN for now -resume home meds as able (7) CHF (congestive heart failure): Code(s): I50.9 - Heart failure, unspecified Status: Chronic Assessment and Plan: - gentle IV fluids while NPO - monitor volume status (8) Elevated troponin: Code(s): R77.8 - Other specified abnormalities of plasma proteins Status: Acute Assessment and Plan: -Trend troponin -P.r.n. EKG - appears chronically elevated (9) Hypothyroid: Qualifiers: Hypothyroidism type: unspecified Qualified Code(s): E03.9 - Hypothyroidism, unspecified Code(s): E03.9 - Hypothyroidism, unspecified Status: Acute Assessment and Plan: - resume Synthroid as able (10) Hypomagnesemia: Code(s): E83.42 - Hypomagnesemia Status: Acute Assessment and Plan: - received replacement - recheck in AM (11) Neurogenic bladder: Code(s): N31.9 - Neuromuscular dysfunction of bladder, unspecified Status: Acute Assessment and Plan: -Chronic Pereira (12) Paroxysmal atrial fibrillation: Code(s): I48.0 - Paroxysmal atrial fibrillation Status: Acute Assessment and Plan: - PO meds including diltiazem and Eliquis on hold, resume as able Plan 74 y/o male with history of paraplegic, recurrent UTI presented to ER with stroke-like symptoms, possible post ictal, CT of head is negative to further evaluate MRI of brain is ordered, there is concern for bacteremia source is not identify possible urinary source, patient is followed by ID and being treated with Unasyn will follow up urine and blood culture and further recommendation to follow, patient is not able provide any ROS or history, will monitor. Subjective Date/time seen: 03/01/25 14:27 Interval history: 74 y/o male with history of paraplegic, recurrent UTI presented to ER with stroke-like symptoms, possible post ictal, CT of head is negative to further evaluate MRI of brain is ordered, there is concern for bacteremia source is not identify possible urinary source, patient is followed by ID and being treated with Unasyn will follow up urine and blood culture and further recommendation to follow, patient is not able provide any ROS or history, will monitor. Review of Systems Review of Systems: ROS unobtainable: Yes unobtainable due to mental status Exam Narrative: Patient is comfortable, NAD HEENT: eyes are clear and none icteric LUNGS:CTA HEART: RR S1S2 ABD: BS+, Soft and nontender Lower:patient is paraplegic SKIN: nonjaundiced Neuro: grossly intact. confused Objective Data Vital Signs Vital Signs: Vital Signs - 24 hr 02/28/25 20:00 02/28/25 20:35 02/28/25 20:35 Temperature Pulse Rate 94 85 Respiratory Rate Blood Pressure Pulse Oximetry Oxygen Delivery Room Air 02/28/25 21:29 03/01/25 00:00 03/01/25 04:00 Temperature 37.4 C Pulse Rate 98 99 102 H Respiratory Rate 18 Blood Pressure 170/79 H Pulse Oximetry 98 Oxygen Delivery 03/01/25 06:00 03/01/25 14:00 Temperature 37.0 C 36.8 C Pulse Rate 80 83 Respiratory Rate 20 20 Blood Pressure 140/60 134/55 L Pulse Oximetry 95 96 Oxygen Delivery Intake/Output Intake/Output: Intake & Output 02/26/25 02/27/25 02/28/25 03/01/25 23:59 23:59 23:59 23:59 Intake Total 607.5 2365.0 1157.5 Output Total 200 1000 1200 Balance 407.5 1365.0 -42.5 Meds/Results Medications: Active Medications Generic Name Dose Route Start Last Admin Trade Name Freq PRN Reason Stop Dose Admin Acetaminophen 650 mg 02/27/25 12:33 Acetaminophen 650 Mg Suppository RECTAL Q6H PRN Mild Pain (1-3) or Fever Aspirin 300 mg 02/28/25 14:20 03/01/25 13:11 Aspirin 300 Mg Suppository RECTAL 300 mg DAILY VAIBHAV Administration Enoxaparin Sodium 40 mg 03/01/25 09:00 03/01/25 09:28 Enoxaparin 40 Mg/0.4 Ml Syringe SUB-Q 40 mg DAILY VAIBHAV Administration Levetiracetam 750 mg/ Dextrose 107.5 mls @ 430 mls/hr 02/27/25 21:00 03/01/25 09:16 IVPB Infused Q12HR VAIBHAV Infusion Ampicillin Sodium/Sulbactam 50 mls @ 100 mls/hr 02/28/25 09:00 03/01/25 09:27 Sodium 1.5 gm/ Sodium Chloride IVPB 100 mls/hr Q6H VAIBHAV Administration Dextrose/Sodium Chloride 1,000 mls @ 75 mls/hr 03/01/25 13:25 03/01/25 13:58 Dextrose 5% Sodium Chloride 0.9% IV CONT 75 mls/hr .[id number] VAIBHAV Administration Lorazepam 2 mg 02/27/25 23:03 02/28/25 04:26 Lorazepam Inj (*Crx) 2 Mg/Ml Vial IV PUSH 2 mg Q6H PRN Administration seizure Radiology Results: ITS Impressions Chest X-Ray 02/27/25 09:16 Impression: 1: Developing patchy bilateral airspace disease, left greater than right. Findings compatible with pneumonia. Consider aspiration. Head CT 02/27/25 09:24 IMPRESSION: 1. Unchanged small old lacunar infarct at the right frontal lobe gonzalez radiata. No acute intracranial process. 2. Age-related changes including mild diffuse volume loss and mild scattered white matter hypoattenuation consistent with chronic small vessel ischemic disease. Head/Neck CTA 03/01/25 08:27 IMPRESSION: 1. 40% stenosis of the right carotid bulb relative to normal distal artery lumen diameter (NASCET criteria). 2. 60% stenosis of the left carotid bulb relative to normal distal artery lumen diameter. 3. Unremarkable cerebral CT angiogram with no hemodynamically significant stenosis, thrombosis or aneurysm. 4. Normal aging brain with mild diffuse volume loss and mild scattered white matter hypoattenuation consistent with chronic small vessel ischemic disease. No acute intracranial process or abnormally enhancing brain lesions. 5. Small band extending across the level of the oral cavity and C2 which is not diagnostically evaluated due to motion artifact at this level. Chest/Abdomen/Pelvis CT 03/01/25 10:22 IMPRESSION: 1. Mild emphysema with left lower lobe pneumonia. 2. Common bile duct dilated to 1.8 cm which may be related to prior cholecystectomy with no intrahepatic biliary ductal dilation. No obstructing stones or mass identified but would correlate with liver function tests and if clinically indicated could consider further evaluation with MRCP. 3. Wall thickening in the deep dependent bladder which could be related to partially decompressed state but also raises concern for cystitis either acute or chronic. Correlate with urinalysis. 4. Multinodular goiter. 5. 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 Brain MRI 03/01/25 12:41 IMPRESSION: 1. Normal aging brain. No acute intracranial process. Labs Labs: Laboratory Results - last 24 hr 03/01/25 03/01/25 03/01/25 00:02 05:59 06:22 WBC 9.3 RBC 2.99 L Hgb 8.2 L Hct 26.2 L MCV 87.6 MCH 27.4 MCHC 31.3 L RDW 16.7 H Plt Count 222 MPV 9.3 Immature Gran % (Auto) 0.3 Neut % (Auto) 75.9 H Lymph % (Auto) 12.3 L [place] % (Auto) 8.7 H Eos % (Auto) 2.3 Baso % (Auto) 0.5 Lymph # (Auto) 1.14 [place] # (Auto) 0.8 H Eos # (Auto) 0.2 Baso # (Auto) 0.1 Abs Immat Gran (auto) 0.03 Absolute Neuts (auto) 7.0 H Absolute Nucleated RBC 0.000 Nucleated RBC % 0.0 Sodium 136 L Potassium 4.1 Chloride 104 Carbon Dioxide 24 Anion Gap 8 BUN 22 H Creatinine 1.12 Estim Creat Clear Calc 72 Estimated GFR > 60 Glucose 95 POC Capillary Glucose 90 91 Calcium 8.6 Magnesium 1.6 03/01/25 13:19 WBC RBC Hgb Hct MCV MCH MCHC RDW Plt Count MPV Immature Gran % (Auto) Neut % (Auto) Lymph % (Auto) [place] % (Auto) Eos % (Auto) Baso % (Auto) Lymph # (Auto) [place] # (Auto) Eos # (Auto) Baso # (Auto) Abs Immat Gran (auto) Absolute Neuts (auto) Absolute Nucleated RBC Nucleated RBC % Sodium Potassium Chloride Carbon Dioxide Anion Gap BUN Creatinine Estim Creat Clear Calc Estimated GFR Glucose POC Capillary Glucose 84 Calcium Magnesium
--- NOTE | 2025-03-01 20:58 | WPDINFPN2 ---
Progress Note: A&P Assessment and Plan (1) Bacteremia: Code(s): R78.81 - Bacteremia Status: Acute (2) Seizure: Code(s): R56.9 - Unspecified convulsions Status: Acute (3) Neurogenic bladder: Code(s): N31.9 - Neuromuscular dysfunction of bladder, unspecified Status: Acute Plan # New seizure. Recent Zyvox. Ruling out for CVA versus postictal with new seizure. Rule out bacteremia any embolic phenomena. Recent VRE bacteremia. Likely transient. Less likely with seizure related to Zyvox use although possible. # of bacteriuria. Pereira catheter. Next clear has symptomatic UTI. Next item rule out the possibility of a bacteremic process. #New onset seizure. Workup as above. #PARAPLEGIA. With malnutrition. Recently transitioned to hospice but now revoked. 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 Plan: Will continue Unasyn through tomorrow. Would likely stop all abx if blood cx negative and clnically unchanged. If he has A positive blood culture with what could be a strep species/ Enterococcus, will add high-dose daptomycin 10 milligrams/kilograms family as patient undergo workup for new CVA. Follow-up neurologic status. Follow fever curve. Consult was done via telemedicine with audio and visual [employer]- protected interface. I performed to the telemedicine visit while in original annoying although patient with [facility] in [facility] with consent. Subjective Date/time seen: 03/01/25 20:58 Exam Narrative: Exam via telemedicine. Patient is thin. Nonverbal. Discussed with family members at the bedside. Reviewed examined chart as well. With ostomy. Previous colostomy. Pereira catheter. Some sediment in the bag. Objective Data Vital Signs Vital Signs: Vital Signs - 24 hr 02/28/25 21:29 03/01/25 00:00 03/01/25 04:00 Temperature 37.4 C Pulse Rate 98 99 102 H Respiratory Rate 18 Blood Pressure 170/79 H Pulse Oximetry 98 Oxygen Delivery 03/01/25 06:00 03/01/25 08:00 03/01/25 08:00 Temperature 37.0 C Pulse Rate 80 92 Respiratory Rate 20 Blood Pressure 140/60 Pulse Oximetry 95 Oxygen Delivery Room Air 03/01/25 12:00 03/01/25 14:00 03/01/25 16:00 Temperature 36.8 C Pulse Rate 87 83 79 Respiratory Rate 20 Blood Pressure 134/55 L Pulse Oximetry 96 Oxygen Delivery Intake/Output Intake/Output: Intake & Output 02/26/25 02/27/25 02/28/25 03/01/25 23:59 23:59 23:59 23:59 Intake Total 607.5 2365.0 1257.5 Output Total 200 1000 1300 Balance 407.5 1365.0 -42.5 Meds/Results Medications: Active Medications Generic Name Dose Route Start Last Admin Trade Name Freq PRN Reason Stop Dose Admin Acetaminophen 650 mg 02/27/25 12:33 Acetaminophen 650 Mg Suppository RECTAL Q6H PRN Mild Pain (1-3) or Fever Aspirin 300 mg 02/28/25 14:20 03/01/25 13:11 Aspirin 300 Mg Suppository RECTAL 300 mg DAILY VAIBHAV Administration Enoxaparin Sodium 40 mg 03/01/25 09:00 03/01/25 09:28 Enoxaparin 40 Mg/0.4 Ml Syringe SUB-Q 40 mg DAILY VAIBHAV Administration Levetiracetam 750 mg/ Dextrose 107.5 mls @ 430 mls/hr 02/27/25 21:00 03/01/25 09:16 IVPB Infused Q12HR VAIBHAV Infusion Ampicillin Sodium/Sulbactam 50 mls @ 100 mls/hr 02/28/25 09:00 03/01/25 20:54 Sodium 1.5 gm/ Sodium Chloride IVPB 100 mls/hr Q6H VAIBHAV Administration Dextrose/Sodium Chloride 1,000 mls @ 75 mls/hr 03/01/25 13:25 03/01/25 13:58 Dextrose 5% Sodium Chloride 0.9% IV CONT 75 mls/hr .[id number] VAIBHAV Administration Lorazepam 2 mg 02/27/25 23:03 02/28/25 04:26 Lorazepam Inj (*Crx) 2 Mg/Ml Vial IV PUSH 2 mg Q6H PRN Administration seizure Radiology Results: ITS Impressions Chest X-Ray 02/27/25 09:16 Impression: 1: Developing patchy bilateral airspace disease, left greater than right. Findings compatible with pneumonia. Consider aspiration. Head CT 02/27/25 09:24 IMPRESSION: 1. Unchanged small old lacunar infarct at the right frontal lobe gonzalez radiata. No acute intracranial process. 2. Age-related changes including mild diffuse volume loss and mild scattered white matter hypoattenuation consistent with chronic small vessel ischemic disease. Head/Neck CTA 03/01/25 08:27 IMPRESSION: 1. 40% stenosis of the right carotid bulb relative to normal distal artery lumen diameter (NASCET criteria). 2. 60% stenosis of the left carotid bulb relative to normal distal artery lumen diameter. 3. Unremarkable cerebral CT angiogram with no hemodynamically significant stenosis, thrombosis or aneurysm. 4. Normal aging brain with mild diffuse volume loss and mild scattered white matter hypoattenuation consistent with chronic small vessel ischemic disease. No acute intracranial process or abnormally enhancing brain lesions. 5. Small band extending across the level of the oral cavity and C2 which is not diagnostically evaluated due to motion artifact at this level. Chest/Abdomen/Pelvis CT 03/01/25 10:22 IMPRESSION: 1. Mild emphysema with left lower lobe pneumonia. 2. Common bile duct dilated to 1.8 cm which may be related to prior cholecystectomy with no intrahepatic biliary ductal dilation. No obstructing stones or mass identified but would correlate with liver function tests and if clinically indicated could consider further evaluation with MRCP. 3. Wall thickening in the deep dependent bladder which could be related to partially decompressed state but also raises concern for cystitis either acute or chronic. Correlate with urinalysis. 4. Multinodular goiter. 5. 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 Brain MRI 03/01/25 12:41 IMPRESSION: 1. Normal aging brain. No acute intracranial process. Labs Labs: Laboratory Results - last 24 hr 03/01/25 03/01/25 03/01/25 00:02 05:59 06:22 WBC 9.3 RBC 2.99 L Hgb 8.2 L Hct 26.2 L MCV 87.6 MCH 27.4 MCHC 31.3 L RDW 16.7 H Plt Count 222 MPV 9.3 Immature Gran % (Auto) 0.3 Neut % (Auto) 75.9 H Lymph % (Auto) 12.3 L [place] % (Auto) 8.7 H Eos % (Auto) 2.3 Baso % (Auto) 0.5 Lymph # (Auto) 1.14 [place] # (Auto) 0.8 H Eos # (Auto) 0.2 Baso # (Auto) 0.1 Abs Immat Gran (auto) 0.03 Absolute Neuts (auto) 7.0 H Absolute Nucleated RBC 0.000 Nucleated RBC % 0.0 Sodium 136 L Potassium 4.1 Chloride 104 Carbon Dioxide 24 Anion Gap 8 BUN 22 H Creatinine 1.12 Estim Creat Clear Calc 72 Estimated GFR > 60 Glucose 95 POC Capillary Glucose 90 91 Calcium 8.6 Magnesium 1.6 03/01/25 03/01/25 13:19 18:43 WBC RBC Hgb Hct MCV MCH MCHC RDW Plt Count MPV Immature Gran % (Auto) Neut % (Auto) Lymph % (Auto) [place] % (Auto) Eos % (Auto) Baso % (Auto) Lymph # (Auto) [place] # (Auto) Eos # (Auto) Baso # (Auto) Abs Immat Gran (auto) Absolute Neuts (auto) Absolute Nucleated RBC Nucleated RBC % Sodium Potassium Chloride Carbon Dioxide Anion Gap BUN Creatinine Estim Creat Clear Calc Estimated GFR Glucose POC Capillary Glucose 84 93 Calcium Magnesium
[2025-03-02] VITALS (8 sets, daily range): BP systolic 112–131; BP diastolic 55–65; PULSE 87–103; RESP 18–20; TEMP 36.2–37.3; O2SAT 95–98
[2025-03-02] MEDS: AMPICILLIN SODIUM/SULBACTAM 1.5 GM in SODIUM CHLORIDE 0.9% IV 50 ML IVPB ×2 (02:08→08:39)
[2025-03-02] MEDS: DEXTROSE 5%/0.9% SOD CHL 1,000 ML 75 ML IV CONT (03:29)
[2025-03-02 05:57] LABS: Hematocrit 32.1 % (42.0-52.0); Hemoglobin 9.8 g/dL (14.0-18.0); Immature Granulocyte Percent A 0.5 % (0-0.5); Lymphocytes Absolute Auto 0.57 K/mm3 (0.9-3.2); Mean Corpuscular HGB Conc 30.5 g/dl (32-36); Mean Corpuscular Hemoglobin 27.5 pg (26-34); Mean Corpuscular Volume 89.9 fl (80-100); Nucleated Red Blood Cells Absolute Auto 0.000 K/mm3 (0.0-0.012); Nucleated Red Blood Cells Perc 0.0 % (0.0-0.2); Platelet Count Result 248 k/mm3 (150-375); Red Blood Count 3.57 M/mm3 (4.6-6.20); White Blood Count 13.2 K/mm3 (4.5-10.0)
[2025-03-02 06:24] LABS: Anion Gap 9 mmol/L (4-12); Blood Urea Nitrogen 21 mg/dL (9-20); Calcium 8.6 mg/dL (8.4-10.2); Carbon Dioxide 22 mmol/L (22-30); Chloride 106 mmol/L (98-107); Estimated CRCL calculation 65 ml/min; Estimated Glomerular Filt Rate 56; Glucose 113 mg/dL (65-110); Magnesium 1.5 mg/dL (1.6-2.3); Potassium 4.1 mmol/L (3.4-5.0); Sodium 137 mmol/L (137-145)
[2025-03-02] MEDS: ENOXAPARIN 40 MG/0.4 ML SYRINGE SUB-Q (08:39)
[2025-03-02] MEDS: MAGNESIUM SULF 2 GM/WATER 50ML 2 GM/50 ML BAG IVPB (11:16)
--- NOTE | 2025-03-02 12:25 | PCSTNOTE ---
Please refer to the Bedside Swallow Evaluation in the EMR. Please note, silent aspiration cannot be ruled out at bedside. This 74-year-old male with past medical history of end-stage congestive heart failure, AFib, COPD, hypothyroidism,, paraplegia, presents the hospital seizures. Before presenting to the hospital the patient was on hospice with [facility]. Family had met with hospice in the emergency room and decided to be no longer warrant hospice and wanted medical management for infection and seizure. During previous hospitalization the pt underwent swallow evaluation at the bedside from which a level 6 soft and bite size diet was recommended. At this time the pt was positioned upright for the swallow testing while in the bed. Prior to testing/oral presentations, pt was noted to cough. Oriented x1; Vocal quality was clear; pt is edentulous with functional labial and lingual ROM and strength. Per pt and previous swallow evaluation, he can eat/masticate solids. Oral mucosa was noted to be dry. Pt was able to dry swallow on command which revealed reduced laryngeal elevation. The pt was presented with 3ml thin liquids/ice chips via a spoon, 5ml thin liquids water via a spoon and a 1/2 tsp of pudding via a spoon. The oral stages appeared WFL. Slight lingual pumping was noted, but no leakage, pocketing or residue exhibited. Upon trigger of the pharyngeal swallow, laryngeal response appeared timely but elevation appeared reduced. No overt s/s of aspiration were noted after the liquids trials but coughing occurred after the pudding trial. At that time the swallow evaluation was ended as an MBS was felt to be needed to more accurately assess swallow ability, determine a safe diet, and an appropriate POC if needed. Further recommendations per MBS Thank you for this referral
--- NOTE | 2025-03-02 14:48 | PC.NURSE ---
RN called and talked to MD Metz about patient's EEG. RN was told he is good from their (neurology) point of view. RN is calling to update patient's family.
--- NOTE | 2025-03-02 14:55 | PC.NURSE ---
RN notified patient's POA of test results and plan moving forward. POA was okay with information and requested a hospice consult prior to D/C. RN notified CC.
[2025-03-02] MEDS: ASPIRIN 300 MG SUPPOSITORY RECTAL (15:45)
--- NOTE | 2025-03-02 17:25 | P.PNIM_ITS ---
Progress Note: A&P Assessment and Plan (1) Stroke-like symptoms: Code(s): R29.90 - Unspecified symptoms and signs involving the nervous system Status: Acute Assessment and Plan: - presented with grand mal seizure with subsequent altered mental status and right-sided weakness. LKW was 02/27 early AM - history of AFib on Eliquis - CT head no acute process - Differential - CVA vs. James's paralysis - rectal ASA due to inability to take PO. Resume Eliquis when able to take PO and no concern for hemorrhagic conversion of stroke on imaging. - neurology consulted, recommended MRI brain. CTA head and neck also ordered. - continue neuro checks - family requesting potential tansfer to Court pending work-up if further intervention warranted (2) Seizure: Code(s): R56.9 - Unspecified convulsions Status: Acute Assessment and Plan: -presented with 20 minutes of focal seizure activity that became generalized per long-term. - per neuro, current tremoring not consistent with seizures - received Keppra load and diazepam - continue IV Keppra -EEG pending if patient able to tolerate - MRI and CTA as above - seizure precautions (3) Aspiration pneumonia: Code(s): J69.0 - Pneumonitis due to inhalation of food and vomit Status: Acute Assessment and Plan: - Strict NPO - Swallow evaluation - IV Unasyn - Blood cultures pending (4) Bacteremia: Code(s): R78.81 - Bacteremia Status: Acute Assessment and Plan: - recent hospitalization. Blood culture 02/19 grew VRE. Was discharged on PO linezolid x7 days on hospice. Unclear source. - repeat blood cultures pending - ID is following - recommended to stop Linezolid for now. Await repeat cultures - CT C/A/P pending (5) Acute UTI: Code(s): N39.0 - Urinary tract infection, site not specified Status: Acute Assessment and Plan: -patient with recent admission for UTI, received Rocephin x5 days. Urine culture was negative - UA with 3+ LE, >100 WBC, 2+ bacteria, many squamous cells - last urine culture with Klebsiella and E coli, both sensitive to Augmentin - unclear if true UTI, urine culture is pending - continue Unasyn in setting of aspiration (6) Hypertension: Qualifiers: Hypertension type: unspecified Qualified Code(s): I10 - Essential (primary) hypertension Code(s): I10 - Essential (primary) hypertension Status: Chronic Assessment and Plan: -permissive HTN for now -resume home meds as able (7) CHF (congestive heart failure): Code(s): I50.9 - Heart failure, unspecified Status: Chronic Assessment and Plan: - gentle IV fluids while NPO - monitor volume status (8) Elevated troponin: Code(s): R77.8 - Other specified abnormalities of plasma proteins Status: Acute Assessment and Plan: -Trend troponin -P.r.n. EKG - appears chronically elevated (9) Hypothyroid: Qualifiers: Hypothyroidism type: unspecified Qualified Code(s): E03.9 - Hypothyroidism, unspecified Code(s): E03.9 - Hypothyroidism, unspecified Status: Acute Assessment and Plan: - resume Synthroid as able (10) Hypomagnesemia: Code(s): E83.42 - Hypomagnesemia Status: Acute Assessment and Plan: - received replacement - recheck in AM (11) Neurogenic bladder: Code(s): N31.9 - Neuromuscular dysfunction of bladder, unspecified Status: Acute Assessment and Plan: -Chronic Pereira (12) Paroxysmal atrial fibrillation: Code(s): I48.0 - Paroxysmal atrial fibrillation Status: Acute Assessment and Plan: - PO meds including diltiazem and Eliquis on hold, resume as able Plan 74 y/o male with history of paraplegic, recurrent UTI presented to ER with stroke-like symptoms, possible post ictal, CT of head is negative to further evaluate MRI of brain is ordered, there is concern for bacteremia source is not identify possible urinary source, patient is followed by ID and being treated with Unasyn will follow up urine and blood culture no growth so far and further recommendation to follow, patient daughter is present in the room, patient is little more interactive, patient is not able provide any ROS or history, will monitor. . Subjective Date/time seen: 03/02/25 17:25 Interval history: 74 y/o male with history of paraplegic, recurrent UTI presented to ER with stroke-like symptoms, possible post ictal, CT of head is negative to further evaluate MRI of brain is ordered, there is concern for bacteremia source is not identify possible urinary source, patient is followed by ID and being treated with Unasyn will follow up urine and blood culture no growth so far and further recommendation to follow, patient daughter is present in the room, patient is little more interactive, patient is not able provide any ROS or history, will monitor. Review of Systems Review of Systems: ROS unobtainable: Yes unobtainable due to medical condition and unobtainable due to mental status Exam Narrative: Patient is comfortable, NAD HEENT: eyes are clear and none icteric LUNGS:CTA HEART: RR S1S2 ABD: BS+, Soft and nontender Lower:patient is paraplegic SKIN: nonjaundiced Neuro: grossly intact. confused Objective Data Vital Signs Vital Signs: Vital Signs - 24 hr 03/01/25 20:00 03/01/25 21:31 03/02/25 00:00 Temperature 36.5 C Pulse Rate 94 94 96 Respiratory Rate 20 Blood Pressure 148/60 H Pulse Oximetry 94 Oxygen Delivery 03/02/25 04:00 03/02/25 06:00 03/02/25 08:00 Temperature 36.6 C Pulse Rate 97 103 H 91 Respiratory Rate 18 Blood Pressure 112/65 Pulse Oximetry 98 Oxygen Delivery 03/02/25 08:35 03/02/25 12:00 03/02/25 14:00 Temperature 36.2 C L Pulse Rate 88 91 Respiratory Rate 19 Blood Pressure 124/55 L Pulse Oximetry 95 Oxygen Delivery Room Air Intake/Output Intake/Output: Intake & Output 02/27/25 02/28/25 03/01/25 03/02/25 23:59 23:59 23:59 23:59 Intake Total 607.5 2365.0 1415.0 1050 Output Total 200 1000 1300 100 Balance 407.5 1365.0 115.0 950 Meds/Results Medications: Active Medications Generic Name Dose Route Start Last Admin Trade Name Freq PRN Reason Stop Dose Admin Acetaminophen 650 mg 02/27/25 12:33 Acetaminophen 650 Mg Suppository RECTAL Q6H PRN Mild Pain (1-3) or Fever Aspirin 300 mg 02/28/25 14:20 03/02/25 15:45 Aspirin 300 Mg Suppository RECTAL 300 mg DAILY VAIBHAV Administration Enoxaparin Sodium 40 mg 03/01/25 09:00 03/02/25 08:39 Enoxaparin 40 Mg/0.4 Ml Syringe SUB-Q 40 mg DAILY VAIBHAV Administration Levetiracetam 750 mg/ Dextrose 107.5 mls @ 430 mls/hr 02/27/25 21:00 03/02/25 08:38 IVPB 430 mls/hr Q12HR VAIBHAV Administration Lorazepam 2 mg 02/27/25 23:03 02/28/25 04:26 Lorazepam Inj (*Crx) 2 Mg/Ml Vial IV PUSH 2 mg Q6H PRN Administration seizure Radiology Results: ITS Impressions Chest X-Ray 02/27/25 09:16 Impression: 1: Developing patchy bilateral airspace disease, left greater than right. Findings compatible with pneumonia. Consider aspiration. Head CT 02/27/25 09:24 IMPRESSION: 1. Unchanged small old lacunar infarct at the right frontal lobe gonzalez radiata. No acute intracranial process. 2. Age-related changes including mild diffuse volume loss and mild scattered white matter hypoattenuation consistent with chronic small vessel ischemic disease. Head/Neck CTA 03/01/25 08:27 IMPRESSION: 1. 40% stenosis of the right carotid bulb relative to normal distal artery lumen diameter (NASCET criteria). 2. 60% stenosis of the left carotid bulb relative to normal distal artery lumen diameter. 3. Unremarkable cerebral CT angiogram with no hemodynamically significant stenosis, thrombosis or aneurysm. 4. Normal aging brain with mild diffuse volume loss and mild scattered white matter hypoattenuation consistent with chronic small vessel ischemic disease. No acute intracranial process or abnormally enhancing brain lesions. 5. Small band extending across the level of the oral cavity and C2 which is not diagnostically evaluated due to motion artifact at this level. Chest/Abdomen/Pelvis CT 03/01/25 10:22 IMPRESSION: 1. Mild emphysema with left lower lobe pneumonia. 2. Common bile duct dilated to 1.8 cm which may be related to prior cholecystectomy with no intrahepatic biliary ductal dilation. No obstructing stones or mass identified but would correlate with liver function tests and if clinically indicated could consider further evaluation with MRCP. 3. Wall thickening in the deep dependent bladder which could be related to partially decompressed state but also raises concern for cystitis either acute or chronic. Correlate with urinalysis. 4. Multinodular goiter. 5. 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 Brain MRI 03/01/25 12:41 IMPRESSION: 1. Normal aging brain. No acute intracranial process. Modified Barium Swallow 03/02/25 15:37 IMPRESSION: Laryngeal penetration without aspiration Please correlate with speech pathologist findings and specific feeding recommendations. Labs Labs: Laboratory Results - last 24 hr 03/01/25 03/02/25 03/02/25 18:43 00:09 05:40 WBC 13.2 H RBC 3.57 L Hgb 9.8 L Hct 32.1 L MCV 89.9 MCH 27.5 MCHC 30.5 L RDW 17.3 H Plt Count 248 MPV 9.4 Immature Gran % (Auto) 0.5 Neut % (Auto) 85.7 H Lymph % (Auto) 4.3 L Mcnairy % (Auto) 4.7 Eos % (Auto) 4.6 H Baso % (Auto) 0.2 Lymph # (Auto) 0.57 L [place] # (Auto) 0.6 Eos # (Auto) 0.6 H Baso # (Auto) 0.0 Abs Immat Gran (auto) 0.06 H Absolute Neuts (auto) 11.3 H Absolute Nucleated RBC 0.000 Nucleated RBC % 0.0 Sodium 137 Potassium 4.1 Chloride 106 Carbon Dioxide 22 Anion Gap 9 BUN 21 H Creatinine 1.25 Estim Creat Clear Calc 65 Estimated GFR 56 L Glucose 113 H POC Capillary Glucose 93 112 H Calcium 8.6 Magnesium 1.5 L 03/02/25 03/02/25 06:05 11:29 WBC RBC Hgb Hct MCV MCH MCHC RDW Plt Count MPV Immature Gran % (Auto) Neut % (Auto) Lymph % (Auto) Mcnairy % (Auto) Eos % (Auto) Baso % (Auto) Lymph # (Auto) Mcnairy # (Auto) Eos # (Auto) Baso # (Auto) Abs Immat Gran (auto) Absolute Neuts (auto) Absolute Nucleated RBC Nucleated RBC % Sodium Potassium Chloride Carbon Dioxide Anion Gap BUN Creatinine Estim Creat Clear Calc Estimated GFR Glucose POC Capillary Glucose 116 H 114 H Calcium Magnesium Quality VTE Prophylaxis VTE prophylaxis: pharmacologic ordered
--- NOTE | 2025-03-02 18:13 | P.NEURO_ITS ---
Neurology EEG Report General Information Date of Study: 03/02/25 TEST TEST Electroencephalogram DIAGNOSIS seizure disorder CONDITION OF RECORDING Bedside according EEG NUMBER [id number] CLINICAL HISTORY The patient is 74-year-old with history seizure disorder. There is no prior history of seizures. Patient had a 20 minute long seizure spell that started as staring off and then escalated into a generalized seizure. Patient was given Versed and is now currently on [facility] EEG DESCRIPTION during wakefulness the background activity consists of predominantly theta activity as 7 hertz with an amplitude of 15-30 microvolts. This appears poorly organized. Superimposed intermittent rhythmic delta activity was seen. Patient however frequently drowsy during which further attenuation of background activity and prominent intermittent rhythmic delta activity was seen which was frontally dominant. Patient did not progress to stage 2 sleep. Hyperventilation or photic stimulation were not performed. IMPRESSION This is an abnormal EEG due to presence of mild diffuse background slowing suggested underlying encephalopathy. However no focal or paroxysmal epileptiform abnormality was seen.
--- NOTE | 2025-03-02 18:37 | P.PNINF_ITS ---
Progress Note: A&P Assessment and Plan (1) Bacteremia: Code(s): R78.81 - Bacteremia Status: Acute (2) Seizure: Code(s): R56.9 - Unspecified convulsions Status: Acute (3) Neurogenic bladder: Code(s): N31.9 - Neuromuscular dysfunction of bladder, unspecified Status: Acute Plan # New seizure. Recent Zyvox. Ruling out for CVA versus postictal with new seizure. Rule out bacteremia any embolic phenomena. Recent VRE bacteremia. Likely transient. Less likely with seizure related to Zyvox use although possible. # of bacteriuria. Pereira catheter. Next clear has symptomatic UTI. Next item rule out the possibility of a bacteremic process. #New onset seizure. Workup as above. #PARAPLEGIA. With malnutrition. Recently transitioned to hospice but now revoked. 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 Plan: Stop abx follow swallow eval Will follow peripherally. Please call with questions Consult was done via telemedicine with audio and visual [employer]- protected interface. I performed to the telemedicine visit while in original annoying although patient with [facility] in [facility] with consent. Subjective Date/time seen: 03/02/25 18:37 Exam Narrative: Exam via telemedicine. More alert today. no respiratory distress Reviewed examined chart as well. With ostomy. Previous colostomy. Objective Data Vital Signs Vital Signs: Vital Signs - 24 hr 03/01/25 20:00 03/01/25 21:31 03/02/25 00:00 Temperature 36.5 C Pulse Rate 94 94 96 Respiratory Rate 20 Blood Pressure 148/60 H Pulse Oximetry 94 Oxygen Delivery 03/02/25 04:00 03/02/25 06:00 03/02/25 08:00 Temperature 36.6 C Pulse Rate 97 103 H 91 Respiratory Rate 18 Blood Pressure 112/65 Pulse Oximetry 98 Oxygen Delivery 03/02/25 08:35 03/02/25 12:00 03/02/25 14:00 Temperature 36.2 C L Pulse Rate 88 91 Respiratory Rate 19 Blood Pressure 124/55 L Pulse Oximetry 95 Oxygen Delivery Room Air Intake/Output Intake/Output: Intake & Output 02/27/25 02/28/25 03/01/25 03/02/25 23:59 23:59 23:59 23:59 Intake Total 607.5 2365.0 1415.0 1890 Output Total 200 1000 1300 400 Balance 407.5 1365.0 115.0 1490 Meds/Results Medications: Active Medications Generic Name Dose Route Start Last Admin Trade Name Freq PRN Reason Stop Dose Admin Acetaminophen 650 mg 02/27/25 12:33 Acetaminophen 650 Mg Suppository RECTAL Q6H PRN Mild Pain (1-3) or Fever Aspirin 300 mg 02/28/25 14:20 03/02/25 15:45 Aspirin 300 Mg Suppository RECTAL 300 mg DAILY VAIBHAV Administration Enoxaparin Sodium 40 mg 03/01/25 09:00 03/02/25 08:39 Enoxaparin 40 Mg/0.4 Ml Syringe SUB-Q 40 mg DAILY VAIBHAV Administration Levetiracetam 750 mg/ Dextrose 107.5 mls @ 430 mls/hr 02/27/25 21:00 03/02/25 08:38 IVPB 430 mls/hr Q12HR VAIBHAV Administration Lorazepam 2 mg 02/27/25 23:03 02/28/25 04:26 Lorazepam Inj (*Crx) 2 Mg/Ml Vial IV PUSH 2 mg Q6H PRN Administration seizure Radiology Results: ITS Impressions Chest X-Ray 02/27/25 09:16 Impression: 1: Developing patchy bilateral airspace disease, left greater than right. Findings compatible with pneumonia. Consider aspiration. Head CT 02/27/25 09:24 IMPRESSION: 1. Unchanged small old lacunar infarct at the right frontal lobe gonzalez radiata. No acute intracranial process. 2. Age-related changes including mild diffuse volume loss and mild scattered white matter hypoattenuation consistent with chronic small vessel ischemic disease. Head/Neck CTA 03/01/25 08:27 IMPRESSION: 1. 40% stenosis of the right carotid bulb relative to normal distal artery lumen diameter (NASCET criteria). 2. 60% stenosis of the left carotid bulb relative to normal distal artery lumen diameter. 3. Unremarkable cerebral CT angiogram with no hemodynamically significant stenosis, thrombosis or aneurysm. 4. Normal aging brain with mild diffuse volume loss and mild scattered white matter hypoattenuation consistent with chronic small vessel ischemic disease. No acute intracranial process or abnormally enhancing brain lesions. 5. Small band extending across the level of the oral cavity and C2 which is not diagnostically evaluated due to motion artifact at this level. Chest/Abdomen/Pelvis CT 03/01/25 10:22 IMPRESSION: 1. Mild emphysema with left lower lobe pneumonia. 2. Common bile duct dilated to 1.8 cm which may be related to prior cholecystectomy with no intrahepatic biliary ductal dilation. No obstructing stones or mass identified but would correlate with liver function tests and if clinically indicated could consider further evaluation with MRCP. 3. Wall thickening in the deep dependent bladder which could be related to partially decompressed state but also raises concern for cystitis either acute or chronic. Correlate with urinalysis. 4. Multinodular goiter. 5. 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 Brain MRI 03/01/25 12:41 IMPRESSION: 1. Normal aging brain. No acute intracranial process. Modified Barium Swallow 03/02/25 15:37 IMPRESSION: Laryngeal penetration without aspiration Please correlate with speech pathologist findings and specific feeding recommendations. Labs Labs: Laboratory Results - last 24 hr 03/01/25 03/02/25 03/02/25 18:43 00:09 05:40 WBC 13.2 H RBC 3.57 L Hgb 9.8 L Hct 32.1 L MCV 89.9 MCH 27.5 MCHC 30.5 L RDW 17.3 H Plt Count 248 MPV 9.4 Immature Gran % (Auto) 0.5 Neut % (Auto) 85.7 H Lymph % (Auto) 4.3 L Victoria % (Auto) 4.7 Eos % (Auto) 4.6 H Baso % (Auto) 0.2 Lymph # (Auto) 0.57 L Victoria # (Auto) 0.6 Eos # (Auto) 0.6 H Baso # (Auto) 0.0 Abs Immat Gran (auto) 0.06 H Absolute Neuts (auto) 11.3 H Absolute Nucleated RBC 0.000 Nucleated RBC % 0.0 Sodium 137 Potassium 4.1 Chloride 106 Carbon Dioxide 22 Anion Gap 9 BUN 21 H Creatinine 1.25 Estim Creat Clear Calc 65 Estimated GFR 56 L Glucose 113 H POC Capillary Glucose 93 112 H Calcium 8.6 Magnesium 1.5 L 03/02/25 03/02/25 06:05 11:29 WBC RBC Hgb Hct MCV MCH MCHC RDW Plt Count MPV Immature Gran % (Auto) Neut % (Auto) Lymph % (Auto) Victoria % (Auto) Eos % (Auto) Baso % (Auto) Lymph # (Auto) [place] # (Auto) Eos # (Auto) Baso # (Auto) Abs Immat Gran (auto) Absolute Neuts (auto) Absolute Nucleated RBC Nucleated RBC % Sodium Potassium Chloride Carbon Dioxide Anion Gap BUN Creatinine Estim Creat Clear Calc Estimated GFR Glucose POC Capillary Glucose 116 H 114 H Calcium Magnesium
[2025-03-03] VITALS (7 sets, daily range): BP systolic 140–146; BP diastolic 55–58; PULSE 91–105; RESP 18–20; TEMP 36.5–36.9; O2SAT 93–98
[2025-03-03 07:00] LABS: Hematocrit 30.6 % (42.0-52.0); Hemoglobin 9.7 g/dL (14.0-18.0); Immature Granulocyte Percent A 0.4 % (0-0.5); Lymphocytes Absolute Auto 0.66 K/mm3 (0.9-3.2); Mean Corpuscular HGB Conc 31.7 g/dl (32-36); Mean Corpuscular Hemoglobin 27.9 pg (26-34); Mean Corpuscular Volume 87.9 fl (80-100); Nucleated Red Blood Cells Absolute Auto 0.000 K/mm3 (0.0-0.012); Nucleated Red Blood Cells Perc 0.0 % (0.0-0.2); Platelet Count Result 247 k/mm3 (150-375); Red Blood Count 3.48 M/mm3 (4.6-6.20); White Blood Count 14.3 K/mm3 (4.5-10.0)
[2025-03-03 07:27] LABS: Anion Gap 10 mmol/L (4-12); Blood Urea Nitrogen 25 mg/dL (9-20); Calcium 8.5 mg/dL (8.4-10.2); Carbon Dioxide 22 mmol/L (22-30); Chloride 101 mmol/L (98-107); Estimated CRCL calculation 48 ml/min; Estimated Glomerular Filt Rate 39; Glucose 99 mg/dL (65-110); Magnesium 1.8 mg/dL (1.6-2.3); Potassium 3.9 mmol/L (3.4-5.0); Sodium 133 mmol/L (137-145)
[2025-03-03] MEDS: ENOXAPARIN 40 MG/0.4 ML SYRINGE SUB-Q (09:21)
--- NOTE | 2025-03-03 16:30 | P.DS_ITS ---
DS: Admitting Diagnosis Discharge Date 03/03/25 Admitting Diagnosis Seizure DS: Discharge Diagnosis Discharge Diagnosis (1) Stroke-like symptoms: Code(s): R29.90 - Unspecified symptoms and signs involving the nervous system Status: Acute Assessment and Plan: - presented with grand mal seizure with subsequent altered mental status and right-sided weakness. LKW was 8 early AM - history of AFib on Eliquis - CT head no acute process - Differential - CVA vs. James's paralysis - rectal ASA due to inability to take PO. Resume Eliquis when able to take PO and no concern for hemorrhagic conversion of stroke on imaging. - neurology consulted, recommended MRI brain. CTA head and neck also ordered. - continue neuro checks - family requesting potential tansfer to Court pending work-up if further intervention warranted (2) Seizure: Code(s): R56.9 - Unspecified convulsions Status: Acute Assessment and Plan: -presented with 20 minutes of focal seizure activity that became generalized per senior living. - per neuro, current tremoring not consistent with seizures - received Keppra load and diazepam - continue IV Keppra -EEG pending if patient able to tolerate - MRI and CTA as above - seizure precautions (3) Aspiration pneumonia: Code(s): J69.0 - Pneumonitis due to inhalation of food and vomit Status: Acute Assessment and Plan: - Strict NPO - Swallow evaluation - IV Unasyn - Blood cultures pending (4) Bacteremia: Code(s): R78.81 - Bacteremia Status: Acute Assessment and Plan: - recent hospitalization. Blood culture 02/19 grew VRE. Was discharged on PO linezolid x7 days on hospice. Unclear source. - repeat blood cultures pending - ID is following - recommended to stop Linezolid for now. Await repeat cultures - CT C/A/P pending (5) Acute UTI: Code(s): N39.0 - Urinary tract infection, site not specified Status: Acute Assessment and Plan: -patient with recent admission for UTI, received Rocephin x5 days. Urine culture was negative - UA with 3+ LE, >100 WBC, 2+ bacteria, many squamous cells - last urine culture with Klebsiella and E coli, both sensitive to Augmentin - unclear if true UTI, urine culture is pending - continue Unasyn in setting of aspiration (6) Hypertension: Qualifiers: Hypertension type: unspecified Qualified Code(s): I10 - Essential (primary) hypertension Code(s): I10 - Essential (primary) hypertension Status: Chronic Assessment and Plan: -permissive HTN for now -resume home meds as able (7) CHF (congestive heart failure): Code(s): I50.9 - Heart failure, unspecified Status: Chronic Assessment and Plan: - gentle IV fluids while NPO - monitor volume status (8) Elevated troponin: Code(s): R77.8 - Other specified abnormalities of plasma proteins Status: Acute Assessment and Plan: -Trend troponin -P.r.n. EKG - appears chronically elevated (9) Hypothyroid: Qualifiers: Hypothyroidism type: unspecified Qualified Code(s): E03.9 - Hypothyroidism, unspecified Code(s): E03.9 - Hypothyroidism, unspecified Status: Acute Assessment and Plan: - resume Synthroid as able (10) Hypomagnesemia: Code(s): E83.42 - Hypomagnesemia Status: Acute Assessment and Plan: - received replacement - recheck in AM (11) Neurogenic bladder: Code(s): N31.9 - Neuromuscular dysfunction of bladder, unspecified Status: Acute Assessment and Plan: -Chronic Pereira (12) Paroxysmal atrial fibrillation: Code(s): I48.0 - Paroxysmal atrial fibrillation Status: Acute Assessment and Plan: - PO meds including diltiazem and Eliquis on hold, resume as able Plan 74 y/o male with history of paraplegic, recurrent UTI presented to ER with stroke-like symptoms, possible post ictal, CT of head is negative to further evaluate MRI of brain is ordered, there is concern for bacteremia source is not identify possible urinary source, patient is followed by ID and being treated with Unasyn will follow up urine and blood culture no growth so far and further recommendation to follow, patient daughter is present in the room, patient is little more interactive, patient is not able provide any ROS or history, will monitor. . DS: Summary Hospital Course Hospital Course: 74 y/o male with history of paraplegic, recurrent UTI presented to ER with stroke-like symptoms, possible post ictal, CT of head is negative to further evaluate MRI of brain was normal without any acute injury, there is concern for bacteremia source is not identify possible urinary source, patient is followed by ID and being treated with Unasyn will follow up urine and blood culture no growth so far and further recommendation to follow, patient had swallow study and pass, patient daughter is present in the room, patient is little more interactive, patient is not able provide any ROS or history. per patient daughter he is now his baseline and we can discharge back to the facility Time Spent with Patient Time attestation: Total time spent providing and/or coordinating discharge services: Exam Narrative: Patient is comfortable, NAD HEENT: eyes are clear and none icteric LUNGS:CTA HEART: RR S1S2 ABD: BS+, Soft and nontender Lower:patient is paraplegic SKIN: nonjaundiced Neuro: grossly intact. confused DS: Data Data Completed and Pending Labs on day of discharge: Labs from last 24 hours 03/03/25 06:15 WBC 14.3 H RBC 3.48 L Hgb 9.7 L Hct 30.6 L MCV 87.9 MCH 27.9 MCHC 31.7 L RDW 17.6 H Plt Count 247 MPV 9.8 Immature Gran % (Auto) 0.4 Neut % (Auto) 82.9 H Lymph % (Auto) 4.6 L Sanborn % (Auto) 4.7 Eos % (Auto) 7.3 H Baso % (Auto) 0.1 L Lymph # (Auto) 0.66 L Sanborn # (Auto) 0.7 H Eos # (Auto) 1.0 H Baso # (Auto) 0.0 Abs Immat Gran (auto) 0.06 H Absolute Neuts (auto) 11.9 H Absolute Nucleated RBC 0.000 Nucleated RBC % 0.0 Sodium 133 L Potassium 3.9 Chloride 101 Carbon Dioxide 22 Anion Gap 10 BUN 25 H Creatinine 1.71 H Estim Creat Clear Calc 48 Estimated GFR 39 L Glucose 99 Calcium 8.5 Magnesium 1.8 Preliminary micro results at discharge 02/27/25 15:21 Blood Culture - Preliminary Blood 02/27/25 09:53 Blood Culture - Preliminary Blood Discharge Plan Discharge Attending physician on discharge: Poncho Bansal Consulting providers: Christina Metz; Veronica Wilcox; Charli Wylie; Saturnino Carroll; Tevin Moore; Wang Bhagat; Coby Thompson; Tyrese Barrera; Kvng Walker; Prem Cloud Discharging Clinician: Sarthak Cotter Patient Disposition: [facility] Long-Term/Asst Living Activity: as tolerated Diet: heart healthy Patient Language: Tuvaluan Stand Alone Forms: General Discharge Information, Usp Discharge Follow-up/Referrals: PHYSICIAN NOT ON STAFF,NONSTAFF [Primary Care Provider] Discharge Medications: New levetiracetam [Keppra] 750 mg tablet 750 mg PO BID Qty: 60 0RF Continued Zyrtec 10 mg capsule 10 mg PO DAILY PRN (Reason: Allergy Symptoms) multivitamin Tablet 1 tablet PO DAILY gabapentin 100 mg capsule 200 mg PO DAILY omeprazole 20 mg capsule,delayed release(DR/EC) 20 mg PO DAILY simethicone [Gas Relief (simethicone)] 80 mg tablet,chewable 80 mg PO Q6H PRN (Reason: Abdominal Discomfort) Rx Instructions: after meals montelukast [Singulair] 10 mg tablet 10 mg PO QHS baclofen 10 mg tablet 15 mg PO QID Rx Instructions: 0800,1200,1600,2000 acetaminophen 500 mg capsule 1,000 mg PO Q6H PRN (Reason: pain) Patient Comments: ... guaifenesin 400 mg tablet 400 mg PO QHS cyanocobalamin (vitamin B-12) 1,000 mcg tablet 1,000 mcg PO DAILY calcium carbonate [Antacid (calcium carbonate)] 200 mg calcium (500 mg) tablet,chewable 200 mg PO TID diclofenac sodium [Voltaren Arthritis Pain] 1 % gel 2 g topical BID Rx Instructions: apply to single elbow, wrist or hand; for hand includes palm/fingers/back of hand Mucinex DM 30-600 mg tablet extended release 12 hr 1 tablet PO Q12H PRN (Reason: cough) sodium chloride [Vanessa 128] 5 % ointment 1 applic EACH EYE QID ferrous sulfate 325 mg (65 mg iron) Tablet 325 mg PO BID ascorbic acid (vitamin C) 500 mg Capsule, Extended Release 500 mg PO DAILY polyethylene glycol 3350 [Miralax] 17 gram Powder In Packet 17 g PO QPM levothyroxine 25 mcg tablet 25 mcg PO DAILY cholecalciferol (vitamin D3) 1,000 units 25 mcg PO DAILY diltiazem HCl 30 mg tablet 30 mg PO TID Patient Comments: Called senior living they said medication is PRN but could not give me an indication. Rx Instructions: HOLD IF HR<50 OR SBP<100 docusate sodium [Colace] 100 mg capsule 100 mg PO BID PRN (Reason: constipation) LidozenPatch(lido HCl-menthol) 4-1 % adhesive patch,medicated 1 patch topical DAILY Patient Comments: uses 2 patches to right shoulder Rx Instructions: may leave on area for up to 8 hrs atorvastatin 10 mg Tablet 10 mg PO HS ipratropium bromide 0.02 % solution 2.5 ml inhalation TID fluticasone propionate [Flonase Allergy Relief] 50 mcg/actuation spray,suspension 2 spray intranasal DAILY Rx Instructions: administer into each nostril Eliquis 5 mg tablet 5 mg PO BID No Action furosemide 40 mg tablet 40 mg PO DAILY Date of admission: 02/28/25 10:28 Primary Care Provider: PHYSICIAN NOT ON STAFF,NONSTAFF Admitting Provider: Poncho Bansal Attending physician on admission: Sarthak Cotter Condition: Stable
== END 2025-03-03 17:57 | DRG 178 ==
LOC: ANHED 07:04 → ANH3MEDSUR 13:25
PROVIDERS: Emergency Medicine; Nurse Practitioner Gerontology; Physician Assistant; Admitting Provider General Practice; Emergency Provider Student in an Organized Health Care Education/Training Program; Visit Provider Family Medicine
DX: J69.0 Pneumonitis due to inhalation of food and vomit (principal); E46 Unspecified protein-calorie malnutrition; G82.20 Paraplegia, unspecified; I13.0 Hypertensive heart and chronic kidney disease with heart failure and stage 1 through stage 4 chronic kidney disease, or unspecified chronic kidney disease; I50.32 Chronic diastolic (congestive) heart failure; J96.11 Chronic respiratory failure with hypoxia; N39.0 Urinary tract infection, site not specified; R78.81 Bacteremia; D50.9 Iron deficiency anemia, unspecified; E86.0 Dehydration; E55.9 Vitamin D deficiency, unspecified; E53.8 Deficiency of other specified B group vitamins; E03.9 Hypothyroidism, unspecified; I50.84 End stage heart failure; I73.9 Peripheral vascular disease, unspecified; I48.0 Paroxysmal atrial fibrillation; J43.9 Emphysema, unspecified; K21.9 Gastro-esophageal reflux disease without esophagitis; N31.9 Neuromuscular dysfunction of bladder, unspecified; N18.9 Chronic kidney disease, unspecified; R56.9 Unspecified convulsions; R60.9 Edema, unspecified; R45.1 Restlessness and agitation; Z99.81 Dependence on supplemental oxygen; Z90.49 Acquired absence of other specified parts of digestive tract; Z79.01 Long term (current) use of anticoagulants; Z93.3 Colostomy status
CPT/HCPCS: 36415; 70450; 70496; 70498; 70551; 71045; 71260; 74177; 74230; 80048; 80053; 81001; 82948; 83605; 83735; 84484; 85025; 85610; 85730; 87040; 87086; 92610; 92611; 93005; 93971; 95816; 96365; 96366; 96367; 96372; 96375; 99285; A9270; G0378; J0295; J0650; J1163; J1650; J1953; J2020; J2060; J3475; J7030; J7042; P9047; Q9967

== ENCOUNTER 2025-03-05 20:07 | Inpatient (IN) | payer MEDICARE, BC, MEDICAID, SELFPAY ==
--- NOTE | ~2025-03-05 | XR_ITS ---
CHEST RADIOGRAPH CLINICAL HISTORY: PNA . COMPARISON: Reference is made to a CT examination of the chest abdomen and pelvis performed 03/01/2025 TECHNIQUE: Single portable view of the chest. FINDINGS Sternal wires are identified along the caudal-most portion of the mediastinum, the wires are midline and intact. The remainder of the cardiomediastinal silhouette is otherwise unremarkable. Redemonstration of asymmetric density within the left mid to lower lung field, which on CT examinatio n demonstrated air bronchograms, consistent with an infiltrate. The remainder of the lungs are clear. IMPRESSION: Left lower lobe infiltrate. Reviewed, dictated and finalized at location A. IMPRESSION: Left lower lobe infiltrate.
--- NOTE | ~2025-03-05 | US_ITS ---
US renal BI 03/10/2025 19:16 Procedure: Realtime transabdominal ultrasound of the kidneys and bladder. Indication: Acute renal insufficiency Comparison: Ultrasound dated 03/10/2026 Findings: Renal echotexture is normal bilaterally without hydronephrosis, contour deforming mass or renal calculus. There are bilateral renal cysts, largest on the left measuring 7.5 cm. This cyst appears to be peripherally calcified without significant change from CT dated 08/07/2022 For differences of technique. The right kidney measures 12.7 cm and left kidney measures 12.6 cm. Bladder not well distended due to catheterization. Impression: 1: Bilateral renal cysts. Stable left renal cyst measuring 7.5 cm with rim calcification, likely benign given the lack of interval change from CT dated 08/07/2022. Reviewed, dictated and finalized at location O. Impression: 1: Bilateral renal cysts. Stable left renal cyst measuring 7.5 cm with rim calc ification, likely benign given the lack of interval change from CT dated 023.
--- NOTE | ~2025-03-05 | CT_ITS ---
History: Seizure with VRE bacteremia - intracranial abscess suspected clinically. PROCEDURE: CT head with prior to and following the administration of intravenous contrast. COMPARISON: Reference is also made to an MRI examination of the brain performed 03/01/2025. 02/27/2025. TECHNIQUE: Axial imaging of the head performed from the skull base to the vertex without IV contrast. Sagittal a nd coronal reformations obtained. DLP: 1362 mGy-cm FINDINGS: The ventricles are enlarged. The dilatation of the ventricles is proportional to the degree of sulcal prominence, not uncommon in the senescent brain. Decreased attenuation is identified within the periventricular white matter, likely secondary to micr ovascular ischemic disease, in a patient of this age. There is no mass, mass effect or midline shift. There is no abnormal extra-axial fluid collection or intracranial hemorrhage. Visualized paranasal sinuses are clear. The mastoid air cells are well aerated. No acute displaced fractures within the overlying cranium. No abnormal contrast enhancement is identified. No rim-enhancing fluid collections are detected. Impression: No acute intracranial hemorrhage or suspicious mass effect. No cross-sectional imaging evidence to suggest the presence of intracranial abscess formation, as det jose l above. Reviewed, dictated and finalized at location A. Impression: No acute intracranial hemorrhage or suspicious mass effect. No cross-sectional imaging evidence to suggest the presence of intracranial abs cess formation, as detailed above.
--- NOTE | ~2025-03-05 | XR_ITS ---
XR chest 1V portable 03/11/2025 07:51 Indication: Pneumonia Procedure: AP portable chest Comparison: Comparison to multiple prior studies sequentially, with oldest reviewed study dated 01/13/2025. Findings: Heart size upper normal. There is been progression of bilateral airspace disease. No significant effusion. No pneumothorax. No acute osseous abnormality. Impression: 1: Interval progression of bilateral airspace disease, edema versus pneumonia. Clinically correlate. Reviewed, dictated and finalized at location O. Impression: 1: Interval progression of bilateral airspace disease, edema versus pneumonia. Clinically correlate.
--- NOTE | 2025-03-05 20:15 | ECG_ITS ---
Test Date: 2025-03-05 20:36:11 Measurements Intervals [place] Rate: 70 P: 101 OR: 162 QRS: 6 QRSD: 120 T: 16 QT: 404 QTc: 438 Interpretive Statements SINUS RHYTHM POSSIBLE ANTERIOR MYOCARDIAL INFARCTION , PROBABLY OLD CONSIDER INFERIOR INFARCT, AGE INDETERMINATE ABNORMAL ECG Compared to ECG 02/27/2025 09:17:11 No significant changes Electronically Signed On 03-06-2025 07:00:07 CDT by Wang Bhagat D.O.
[2025-03-05 20:16] VITALS: BP 96/47; PULSE 67; RESP 11; O2SAT 100
[2025-03-05 20:35] VITALS: BP 96/47; PULSE 72; RESP 11; TEMP 37.1; O2SAT 97
[2025-03-05 20:42] LABS: Hematocrit 25.4 % (42.0-52.0); Hemoglobin 8.2 g/dL (14.0-18.0); Immature Granulocyte Percent A 0.4 % (0-0.5); Lymphocytes Absolute Auto 1.13 K/mm3 (0.9-3.2); Mean Corpuscular HGB Conc 32.3 g/dl (32-36); Mean Corpuscular Hemoglobin 27.6 pg (26-34); Mean Corpuscular Volume 85.5 fl (80-100); Nucleated Red Blood Cells Absolute Auto 0.000 K/mm3 (0.0-0.012); Nucleated Red Blood Cells Perc 0.0 % (0.0-0.2); Platelet Count Result 233 k/mm3 (150-375); Red Blood Count 2.97 M/mm3 (4.6-6.20); White Blood Count 15.8 K/mm3 (4.5-10.0)
[2025-03-05 20:46] VITALS: PULSE 74; O2SAT 97
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
--- OUTSIDE RECORDS SUMMARY | 2025-03-05 20:46 | XMS_ITS | Clinical Summary ---
Author Organization [facility] Address [address] [place] [place] [address] Care Team Providers Care Nylon Operator Name Role Phone Ba Ramirez MD Primary Care Provider [phone] Allergies Active Allergy Reactions Criticality Noted Date [...] Department Care Team Description 02/20/2025 Orders Only [facility] - [place] [address] [place] [address] Jose Arias MD Chronic anemia 02/06/2025 Orders Only [facility] - [place] [address] [place] [address] Jose Arias MD Chronic anemia 02/01/2025 External Device Data [facility] ABSTRACTION Provider, Abstract 01/31/2025 External Device Data [facility] ABSTRACTION Provider, Abstract 01/23/2025 Orders Only [facility] - [place] [address] [place] [address] Jose Arias MD Chronic anemia 01/17/2025 External Device Data [facility] ABSTRACTION Provider, Abstract 01/09/2025 Orders Only [facility] - [place] [address] Jose Arias MD Chronic anemia 12/29/2024 Orders Only [facility] - [place] [address] [place] [address] Jose Arias MD 12/28/2024 9:45 AM CDT Office Visit [facility] - [place] [address] [place] [phone] Jose Arias MD Chronic anemia (Primary Dx) 12/28/2024 Orders Only [facility] - [address] [place] [address] Jose Arias MD 12/26/2024 Orders Only [facility] - [place] [address] [place] [id number] Jose Arias MD Chronic anemia 12/12/2024 Orders Only [facility] - [place] [address] [place] [phone] Jose Arias MD Chronic anemia 12/06/2024 External Device Data [facility] ABSTRACTION Provider, Abstract from Last 3 Months Social History Tobacco [...] Care Team (Late st Contact Info) Description 03/06/2025 Orders Only [facility] [address] [place] [address] Jose Arias MD [address] [place] [address] Chronic anemia 03/22/2025 9:30 AM CDT [facility] [address] [place] [address] Carlota Gama MD [address] [place] [address] Health Maintenance Due Date Last [...] PERCENT SATURATION Routine 12/28/2024 11:10 AM CDT from Last 3 Months Results * BASIC METABOLIC PANEL (12/28/2024 12:54 PM CDT) Blood us Jose Arias MD CHEMISTRY ORDERABLES Final Resu lt * CBC WITH AUTODIFFERENTIAL (12/28/2024 12:53 PM CDT) Blood us Jose Arias MD HEMATOLOGY ORDERABLES Final Res ult * IRON, TIBC, AND PERCENT SATURATION (12/28/2024 11:10 AM CDT) Blood us Jose Arias MD CHEMISTRY ORDERABLES Final Resu lt from Last 3 Months Insurance MEDICAID [place] MEDICARE PART A AND B [facility] Advance Directives For more information, please contact: [phone] Documents on File Type Date Recorded Patient Drug Abuse Worker Expl anation Advance Directive POA 02/17/2024 8:01 AM A dvance Directive POA Care Teams Nylon Operator Relationship Specialty Start Date End Date Ba Ramirez MD PCP - General Internal Medicine 06/17/22
--- OUTSIDE RECORDS SUMMARY | 2025-03-05 20:46 | XMS_ITS | Clinical Summary ---
Author Organization [facility] Address [address] [place] [address] Care Team Providers Care Technical Recruiter Name Role Phone Ba Ramirez MD Primary Care Provider [phone] Source Comments [facility],non-owned Affiliates and Associated Physician Practices is amultiple site organization consisting of ambulatory clinics and hospital sitesin [place], [place], [place] and [place]. This disclosure is being madepursuant to the Care Everywhere program and may not contain all information available regarding this patient. Last updated 18.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
--- OUTSIDE RECORDS SUMMARY | 2025-03-05 20:46 | XMS_ITS | Clinical Summary ---
Author Organization [facility] Address [address] [place] [address] Phone Care Team Providers Care American Sign Language Teacher Name Role Phone Ba Ramirez MD Primary Care Provider [phone] Allergies Active Allergy Reactions Criticality Noted Date [...] by mouth daily 0 Active nystatin (MYCOSTATIN) 915544 UNIT/GM powder Apply topically 2 times daily [...] Comments Blood Pressure 136/78 06/09/2022 9:10 AM BOOKBINDER APPRENTICE Pulse - - Temperature 36.2 C (97.2 F) 06/09/2022 9:10 AM BOOKBINDER APPRENTICE Respiratory Rate 18 06/09/2022 9:10 AM BOOKBINDER APPRENTICE Oxygen Saturation - - Inhaled Oxygen Concentration - - Weight 136 kg (300 lb) 06/09/2022 9:10 AM BOOKBINDER APPRENTICE Height 188 cm (6' 2) 06/09/2022 9:10 AM BOOKBINDER APPRENTICE Body Mass Index 38.52 06/09/2022 9:10 AM BOOKBINDER APPRENTICE Plan of Treatment Health Maintenance Due Date Last Done Comments COVID-19 Vaccine ( season) 2024 Influenza Vaccine (#1) 2025 04/19/2019 Pneumococcal PPSV23/PCV13 65 + Years / Low and Medium Risk Completed 08/15/2019, 06/07/2015, 05/02/2004 [place] [address] MEDICARE MEDICAID - [place] Care Teams American Sign Language Teacher Relationship Specialty Start Date End Date Ba Ramirez MD [address] [place] [phone] PCP - General Internal Medicine 11/26/20
[2025-03-05 20:52] LABS: Alanine Aminotransferase 39 U/L (6-50); Albumin Level 2.8 g/dL (3.5-5.1); Alkaline Phosphatase 182 U/L (38-126); Anion Gap 8 mmol/L (4-12); Aspartate Amino Transferase 21 U/L (17-59); Bilirubin,Total 0.5 mg/dL (0.2-1.3); Blood Urea Nitrogen 37 mg/dL (9-20); Calcium 8.0 mg/dL (8.4-10.2); Carbon Dioxide 21 mmol/L (22-30); Chloride 101 mmol/L (98-107); Estimated Glomerular Filt Rate 37; Glucose 105 mg/dL (65-110); Potassium 3.9 mmol/L (3.4-5.0); Sodium 130 mmol/L (137-145); Total Protein 6.2 g/dL (6.3-8.2)
[2025-03-05 20:54] LABS: INR 1.2; Prothrombin Time 15.0 Seconds (11.1-14.7)
[2025-03-05 20:55] LABS: Partial Thromboplastin Time 35.0 Seconds (22.3-36.8)
[2025-03-05 21:00] VITALS: O2SAT 97
[2025-03-05] MEDS: LACTATED RINGERS 1,000 ML 999 ML IV CONT ×3 (22:11→23:51)
[2025-03-05] MEDS: LINEZOLID 600 MG/300 ML 600 MG/300 ML SOLN 300 MG IVPB (22:28)
[2025-03-05 22:38] LABS: Fractional Inspired Oxygen 28 %; HCO3 VBG 22.0 mEq/l (24.0-30.0); PCO2 VBG 45.6 mmHg (42.0-48.0); PO2 VBG 52.6 mmHg (35.0-45.0); pH VBG 7.302 (7.300-7.400)
[2025-03-05 22:42] VITALS: BP 149/52; PULSE 82; RESP 15; O2SAT 98
[2025-03-05 22:47] LABS: Add Urine Microscopic? YES; Appearance Urine Turbid (Clear); Glucose Urine UA Negative (Negative); Leukocyte Esterase Ur 3+ LEU/UL (Negative); Need Manual Microscopic Reviewed; Nitrate Urine Negative (Negative); Non Pathogenic Casts >20; Specific Grav Ur 1.017 (1.001-1.035)
[2025-03-05 22:51] LABS: Liters per Minute 3.0 LPM
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
[2025-03-06] VITALS (30 sets, daily range): BP systolic 99–145; BP diastolic 42–78; PULSE 8–86; RESP 12–70; TEMP 36.1–37.1; O2SAT 97–100; BMI 38.2
[2025-03-06] MEDS: levETIRAcetam 1000MG/NACL100ML 1,000 MG/100 ML BAG 400 MG IVPB ×3 (00:03→22:00)
--- NOTE | 2025-03-06 00:59 | WNDPHOTO ---
PHOTO ONLY - See Nursing Notes and/ or assessments for documentation.
--- NOTE | 2025-03-06 01:01 | WNDPHOTO ---
PHOTO ONLY - See Nursing Notes and/ or assessments for documentation.
--- NOTE | 2025-03-06 01:03 | WNDPHOTO ---
PHOTO ONLY - See Nursing Notes and/ or assessments for documentation.
--- NOTE | 2025-03-06 01:14 | ADMGEN ---
This patient, Bob Simmons, was admitted to IMU Room 206-02. Patient/family oriented to hospital policies and general routines including ID bracelet, bed and alarms, visiting hours, pain management, procedures, bathroom and other care routines, personal items, smoking policy, room service/diet, and visiting hours. Information on how to activate the Rapid Response Team has been discussed. Patient/Family are encouraged to report perceived risks to care and to ask questions if they do not understand what they are told or what they should do.
[2025-03-06] MEDS: AMPICILLIN SODIUM/SULBACTAM 3 GM in SODIUM CHLORIDE 0.9% IV 100 ML 200 ML IVPB ×3 (01:35→18:40)
--- NOTE | 2025-03-06 02:49 | PC.NURSE ---
Pt placed on non re-breather after admission, due to oxygen going down to 46% on 3L NC.
[2025-03-06] MEDS: DOXYCYCLINE IV 100 MG in SODIUM CHLORIDE 0.9% IV 100 ML IVPB ×3 (04:02→20:35)
[2025-03-06 04:11] LABS: Alveolar/Arterial O2 Gradient 110.6 mmHg; Fractional Inspired Oxygen 100 %; HCO3 ABG 21.4 mEq/l (22.0-26.0); Oxygen Content ABG 14.8 %vol (16.0-22.0); Oxygen Saturation ABG 99.9 % (95.0-100.0); PCO2 ABG 34.8 mmHg (35.0-45.0); PO2 ABG 567.6 mmHg (80.0-100.0); PO2 FiO2 Ratio Arterial Blood 5.68 %
[2025-03-06 04:12] LABS: Modified Allen's Test Pass; Site Drawn RIGHT RADIAL
[2025-03-06] MEDS: PANTOPRAZOLE 40 MG TABLET PO (08:45)
[2025-03-06] MEDS: FUROSEMIDE 40 MG TABLET PO (08:45)
[2025-03-06] MEDS: APIXABAN 5 MG TABLET PO ×2 (08:45→16:55)
[2025-03-06] MEDS: IPRATROPIUM BR 0.02% INH SOLN 0.5 MG/2.5 ML VIAL INHALATION ×3 (08:53→21:43)
[2025-03-06] MEDS: FLUTICASONE PROPIONATE 0.05% NA SPR 16 GM BTL (*BKC) 2 SPRAY NASAL (08:57)
[2025-03-06] MEDS: DICLOFENAC SODIUM 1% 100 GM GEL (*BKC) 1 APPLIC TOPICAL ×2 (08:57→16:56)
[2025-03-06] MEDS: SODIUM CHLORIDE 5% OPHTH OINT 3.5 GM TUBE 1 APPLIC EACH EYE ×4 (08:58→20:43)
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
--- NOTE | 2025-03-06 12:49 | PM.IMPN ---
Progress Note: A&P Assessment and Plan (1) Witnessed seizure-like activity: Code(s): R56.9 - Unspecified convulsions Status: Acute Assessment and Plan: Keppra 1000 mg IV b.i.d. Possible increase in the does in accordance with the neurology Seizure precaution Consider CT/MRI EEG as per Neurology Neurology consult Accu-Cheks Ativan 2 mg IV p.r.n. q.6 hours for seizures (2) Aspiration pneumonia of left lower lobe: Qualifiers: Aspiration pneumonia type: unspecified Qualified Code(s): J69.0 - Pneumonitis due to inhalation of food and vomit Code(s): J69.0 - Pneumonitis due to inhalation of food and vomit Status: Acute Assessment and Plan: Started on Unasyn and doxycycline Monitor vital Monitor culture Reviewed chest X-Ray (3) Abnormal finding on urinalysis: Code(s): R82.90 - Unspecified abnormal findings in urine Status: Acute Assessment and Plan: Continue Unasyn Pending urine culture Can deescalate antibiotic once culture results (4) Rash: Code(s): R21 - Rash and other nonspecific skin eruption Status: Acute Assessment and Plan: Started on prednisone 40 mg p.o. q.d. for 5 days monitor rash Plan Subjective Date/time seen: 03/06/25 12:49 Interval history: Discussed with neurology. Possibly will increase Keppra. Started on prednisone 40 mg p.o. for 5 days due to rash on upper extremity. Review of Systems Review of Systems: Unobtainable due to the patient's mental status Objective Data Vital Signs Vital Signs: Vital Signs - 24 hr 03/05/25 20:16 03/05/25 20:35 03/05/25 20:46 Temperature 98.7 F Pulse Rate 67 72 74 Respiratory Rate 11 L 11 L Blood Pressure 96/47 L 96/47 L Pulse Oximetry 100 97 Oxygen Delivery Nasal Cannula Nasal Cannula Oxygen Flow Rate 3 3 Fraction of Inspired Oxygen 03/05/25 20:46 03/05/25 21:00 03/05/25 22:42 Temperature Pulse Rate 82 Respiratory Rate 15 Blood Pressure 149/52 H Pulse Oximetry 97 97 98 Oxygen Delivery Nasal Cannula Nasal Cannula Oxygen Flow Rate 3 3 Fraction of Inspired Oxygen 03/06/25 00:26 03/06/25 00:44 03/06/25 02:00 Temperature 97 F L Pulse Rate 8 L 80 78 Respiratory Rate 12 20 Blood Pressure 145/64 H 122/42 L Pulse Oximetry 99 100 Oxygen Delivery Oxygen Flow Rate Fraction of Inspired Oxygen 03/06/25 02:40 03/06/25 03:10 03/06/25 03:48 Temperature 97.1 F L Pulse Rate 63 70 Respiratory Rate 23 H 70 H Blood Pressure 99/46 L Pulse Oximetry 100 100 100 Oxygen Delivery Non-Rebreather Mask BiPAP Oxygen Flow Rate 15 Fraction of Inspired Oxygen 03/06/25 03:54 03/06/25 04:00 03/06/25 05:25 Temperature Pulse Rate 83 Respiratory Rate Blood Pressure Pulse Oximetry 100 100 Oxygen Delivery BiPAP High Flow Therapy with Na Oxygen Flow Rate 40 Fraction of Inspired Oxygen 100 30 03/06/25 06:00 03/06/25 07:08 03/06/25 07:41 Temperature Pulse Rate 75 Respiratory Rate Blood Pressure Pulse Oximetry 97 100 Oxygen Delivery High Flow Therapy with Na High Flow Therapy with Na Oxygen Flow Rate 40 40 Fraction of Inspired Oxygen 35 35 03/06/25 08:00 03/06/25 08:00 03/06/25 08:00 Temperature 97.5 F L Pulse Rate 81 74 Respiratory Rate 20 Blood Pressure 127/46 L Pulse Oximetry 100 100 Oxygen Delivery High Flow Therapy with Na Oxygen Flow Rate 40 Fraction of Inspired Oxygen 30 03/06/25 08:55 03/06/25 09:00 03/06/25 09:20 Temperature Pulse Rate 78 71 77 Respiratory Rate 16 16 Blood Pressure Pulse Oximetry 100 Oxygen Delivery High Flow Nasal Cannula Oxygen Flow Rate 3 Fraction of Inspired Oxygen 03/06/25 09:58 03/06/25 10:00 03/06/25 11:41 Temperature 97.7 F Pulse Rate 75 76 85 Respiratory Rate 20 20 Blood Pressure 104/78 Pulse Oximetry 100 100 Oxygen Delivery High Flow Nasal Cannula Oxygen Flow Rate 3 Fraction of Inspired Oxygen Intake/Output Intake/Output: Intake & Output 03/03/25 03/04/25 03/05/25 03/06/25 23:59 23:59 23:59 23:59 Intake Total 1300 200 Output Total 350 Balance 1300 -150 Meds/Results Medications: Active Medications Generic Name Dose Route Start Last Admin Trade Name Freq PRN Reason Stop Dose Admin Acetaminophen 650 mg 03/05/25 23:48 Acetaminophen 325 Mg Tablet PO Q4H PRN Mild Pain (1-3) or Fever Apixaban 5 mg 03/06/25 09:00 03/06/25 08:45 Apixaban 5 Mg Tablet PO 5 mg BID [facility] Administration Diclofenac Sodium 1 applic 03/06/25 09:00 03/06/25 08:57 Diclofenac Sodium 1% 100 Gm Gel (*Bkc) TOPICAL 1 applic BID [facility] Administration Diltiazem HCl 30 mg 03/06/25 09:00 03/06/25 12:22 Diltiazem Hcl 30 Mg Tablet PO 30 mg TID [facility] Administration Fluticasone Propionate 2 spray 03/06/25 09:00 03/06/25 08:57 Fluticasone Propionate 0.05% Na Spr 16 Gm Btl (*Bkc) NASAL 2 spray DAILY [facility] Administration Furosemide 40 mg 03/06/25 09:00 03/06/25 08:45 Furosemide 40 Mg Tablet PO 40 mg DAILY [facility] Administration Levetiracetam 1,000 mg in 100 mls @ 400 mls/hr 03/05/25 23:55 03/06/25 08:45 Keppra Iv IVPB 400 mls/hr Q12HR [facility] Administration Ipratropium [place] 0.5 mg 03/06/25 09:00 03/06/25 08:53 Ipratropium Br 0.02% Inh Soln 0.5 Mg/2.5 Ml Vial INHALATION 0.5 mg TIDRT [facility] Administration Levothyroxine Sodium 25 mcg 03/07/25 06:30 Levothyroxine Sodium 25 Mcg Tablet PO DAILY@0630 [facility] Miscellaneous Information 1 each 03/07/25 00:01 Med Rec Order Clarification -Lidocaine Hcl-Menthol [Lidozenpatch(Lido Hcl-Menthol)] 4-1 % XX 04/06/25 00:00 CLARIFY [facility] Montelukast Sodium 10 mg 03/06/25 21:00 Montelukast Sodium 10 Mg Tablet PO QHS [facility] Non-Formulary Medication 1 patch 03/06/25 09:00 Lidocaine Hcl-Menthol [Lidozenpatch(Lido Hcl-Menthol)] TOPICAL 04/05/25 08:59 DAILY [facility] Ondansetron HCl 4 mg 03/05/25 23:48 Ondansetron Inj 4 Mg/2 Ml Vial IV PUSH Q4H PRN Nausea Pantoprazole Sodium 40 mg 03/06/25 09:00 03/06/25 08:45 Pantoprazole 40 Mg Tablet PO 40 mg DAILY [facility] Administration Polyethylene Glycol 17 gm 03/06/25 18:00 Polyethylene Glycol 3350 17 Gm Powd.Pack PO QPM [facility] Simethicone 80 mg 03/06/25 08:15 Simethicone 80 Mg Tab.Chew PO Q6H PRN Abdominal Discomfort Sodium Chloride 1 applic 03/06/25 09:00 03/06/25 12:22 Sodium Chloride 5% Ophth Oint 3.5 Gm Tube EACH EYE 1 applic QID [facility] Administration Radiology Results: ITS Impressions Chest X-Ray 03/05/25 21:12 IMPRESSION: Left lower lobe infiltrate. Head CT 03/05/25 21:31 Impression: No acute intracranial hemorrhage or suspicious mass effect. No cross-sectional imaging evidence to suggest the presence of intracranial abscess formation, as detailed above. Labs Labs: Laboratory Results - last 24 hr 03/05/25 03/05/25 03/05/25 20:34 22:14 22:27 WBC 15.8 H RBC 2.97 L Hgb 8.2 L Hct 25.4 L MCV 85.5 MCH 27.6 MCHC 32.3 RDW 17.2 H Plt Count 233 MPV 9.6 Immature Gran % (Auto) 0.4 Neut % (Auto) 78.6 H Lymph % (Auto) 7.2 L [place] % (Auto) 5.0 Eos % (Auto) 8.7 H Baso % (Auto) 0.1 L Lymph # (Auto) 1.13 [place] # (Auto) 0.8 H Eos # (Auto) 1.4 H Baso # (Auto) 0.0 Abs Immat Gran (auto) 0.07 H Absolute Neuts (auto) 12.4 H Absolute Nucleated RBC 0.000 Nucleated RBC % 0.0 PT 15.0 H INR 1.2 APTT 35.0 Puncture Site ABG pH ABG pCO2 ABG pO2 ABG PO2/FiO2 Ratio ABG HCO3 ABG O2 Saturation ABG O2 Content ABG Base Excess VBG pH 7.302 VBG pCO2 45.6 VBG pO2 52.6 H VBG HCO3 22.0 L A-a Gradient Oxyhemoglobin Total Hemoglobin O2 Delivery Device Nasal cannula O2 Liters/Min 3.0 FiO2 28 Expiratory Pressure Inspiratory Pressure Sodium 130 L Potassium 3.9 Chloride 101 Carbon Dioxide 21 L Anion Gap 8 BUN 37 H D Creatinine 1.81 H Estim Creat Clear Calc Not Reportable Estimated GFR 37 L Glucose 105 Lactic Acid 1.5 Calcium 8.0 L Total Bilirubin 0.5 AST 21 ALT 39 Alkaline Phosphatase 182 H Total Protein 6.2 L Albumin 2.8 L Urine Color Yellow Urine Appearance Turbid H Urine pH 5.0 Ur Specific [place] 1.017 Urine Protein 1+ H Urine Glucose (UA) Negative Urine Ketones Negative Ur Blood (Man) Trace Urine Nitrate Negative Urine Bilirubin Negative Urine Urobilinogen 0.2 Add Ur Microanalysis Reviewed Leukocyte Esterase Rfl 3+ H Urine RBC 51-100 H Urine WBC >100 H Ur Squamous Epith Cells Occasional Urine Bacteria 1+ H Urine Casts >20 03/06/25 04:00 WBC RBC Hgb Hct MCV MCH MCHC RDW Plt Count MPV Immature Gran % (Auto) Neut % (Auto) Lymph % (Auto) [place] % (Auto) Eos % (Auto) Baso % (Auto) Lymph # (Auto) [place] # (Auto) Eos # (Auto) Baso # (Auto) Abs Immat Gran (auto) Absolute Neuts (auto) Absolute Nucleated RBC Nucleated RBC % PT INR APTT Puncture Site Right radial ABG pH 7.406 ABG pCO2 34.8 L ABG pO2 567.6 H ABG PO2/FiO2 Ratio 5.68 ABG HCO3 21.4 L ABG O2 Saturation 99.9 ABG O2 Content 14.8 L ABG Base Excess -2.9 VBG pH VBG pCO2 VBG pO2 VBG HCO3 A-a Gradient 110.6 Oxyhemoglobin 99.4 Total Hemoglobin 9.4 L O2 Delivery Device Bipap O2 Liters/Min Not Reportable FiO2 100 Expiratory Pressure 8 Inspiratory Pressure 14 Sodium Potassium Chloride Carbon Dioxide Anion Gap BUN Creatinine Estim Creat Clear Calc Estimated GFR Glucose Lactic Acid Calcium Total Bilirubin AST ALT Alkaline Phosphatase Total Protein Albumin Urine Color Urine Appearance Urine pH Ur Specific [place] Urine Protein Urine Glucose (UA) Urine Ketones Ur Blood (Man) Urine Nitrate Urine Bilirubin Urine Urobilinogen Add Ur Microanalysis Leukocyte Esterase Rfl Urine RBC Urine WBC Ur Squamous Epith Cells Urine Bacteria Urine Casts Quality VTE Prophylaxis VTE prophylaxis: pharmacologic ordered (Continue home Eliquis.) Hospitalist MIPS Advance Care Plan I have confirmed that the patient's Advanced Care Plan is present, code status is documented, or surrogate decision maker is listed in patient medical record.: Yes Medication Reconciliation I have utilized all available resources to obtain, update and review the patients current medications (includes all prescriptions, OTC, herbals, cannabis, and nutritional supplements).: Yes
[2025-03-06] MEDS: MONTELUKAST SODIUM 10 MG TABLET PO (20:42)
[2025-03-07] VITALS (19 sets, daily range): BP systolic 101–137; BP diastolic 37–103; PULSE 71–108; RESP 18–22; TEMP 36.4–37.6; O2SAT 95–100
[2025-03-07] MEDS: AMPICILLIN SODIUM/SULBACTAM 3 GM in SODIUM CHLORIDE 0.9% IV 100 ML 200 ML IVPB ×2 (02:47→05:39)
[2025-03-07 05:29] LABS: Blood Urea Nitrogen 35 mg/dL (9-20); Calcium 8.1 mg/dL (8.4-10.2); Carbon Dioxide 18 mmol/L (22-30); Estimated CRCL calculation 46 ml/min; Estimated Glomerular Filt Rate 37; Glucose 77 mg/dL (65-110); Potassium 3.8 mmol/L (3.4-5.0); Sodium 132 mmol/L (137-145)
[2025-03-07 05:32] LABS: Hematocrit 25.9 % (42.0-52.0); Hemoglobin 8.1 g/dL (14.0-18.0); Immature Granulocyte Percent A 0.7 % (0-0.5); Lymphocytes Absolute Auto 1.57 K/mm3 (0.9-3.2); Mean Corpuscular HGB Conc 31.3 g/dl (32-36); Mean Corpuscular Hemoglobin 27.6 pg (26-34); Mean Corpuscular Volume 88.4 fl (80-100); Nucleated Red Blood Cells Absolute Auto 0.000 K/mm3 (0.0-0.012); Nucleated Red Blood Cells Perc 0.0 % (0.0-0.2); Platelet Count Result 246 k/mm3 (150-375); Red Blood Count 2.93 M/mm3 (4.6-6.20); White Blood Count 16.4 K/mm3 (4.5-10.0)
[2025-03-07] MEDS: LEVOTHYROXINE SODIUM 25 MCG TABLET PO (05:39)
[2025-03-07 05:41] LABS: Anion Gap 11 mmol/L (4-12); Chloride 103 mmol/L (98-107)
[2025-03-07] MEDS: IPRATROPIUM BR 0.02% INH SOLN 0.5 MG/2.5 ML VIAL INHALATION ×3 (07:37→20:18)
[2025-03-07] MEDS: levETIRAcetam 1000MG/NACL100ML 1,000 MG/100 ML BAG 400 MG IVPB ×2 (08:45→19:54)
[2025-03-07] MEDS: PANTOPRAZOLE 40 MG TABLET PO (09:03)
[2025-03-07] MEDS: FUROSEMIDE 40 MG TABLET PO (09:03)
[2025-03-07] MEDS: APIXABAN 5 MG TABLET PO ×2 (09:03→19:49)
[2025-03-07] MEDS: FLUTICASONE PROPIONATE 0.05% NA SPR 16 GM BTL (*BKC) 2 SPRAY NASAL (09:04)
[2025-03-07] MEDS: SODIUM CHLORIDE 5% OPHTH OINT 3.5 GM TUBE 1 APPLIC EACH EYE ×4 (09:04→19:55)
[2025-03-07] MEDS: DICLOFENAC SODIUM 1% 100 GM GEL (*BKC) 1 APPLIC TOPICAL ×2 (09:04→19:54)
[2025-03-07] MEDS: DOXYCYCLINE IV 100 MG in SODIUM CHLORIDE 0.9% IV 100 ML IVPB (09:05)
[2025-03-07] MEDS: HYDROCORTISONE 1% 30 GM CREAM 1 APPLIC TOPICAL ×2 (10:38→19:51)
[2025-03-07] MEDS: LIDOCAINE 5% PATCH 2 PATCH TRANSDERM (10:38)
[2025-03-07] MEDS: levoFLOXacin 750 MG/D5W 150 ML 750 MG/150 ML BAG 100 MG IVPB (10:39)
[2025-03-07] MEDS: LORATADINE 10 MG TABLET PO (10:39)
[2025-03-07] MEDS: metroNIDAZOLE 500 MG/ISO 100ML 500 MG/100 ML BAG 100 MG IVPB ×2 (12:16→23:22)
[2025-03-07] MEDS: SODIUM CHLORIDE 0.9% IV 1,000 ML 100 ML IV CONT (17:03)
--- NOTE | 2025-03-07 17:19 | P.PNIM_ITS ---
Progress Note: A&P Assessment and Plan (1) Witnessed seizure-like activity: Code(s): R56.9 - Unspecified convulsions Status: Acute (2) Aspiration pneumonia of left lower lobe: Qualifiers: Aspiration pneumonia type: unspecified Qualified Code(s): J69.0 - Pneumonitis due to inhalation of food and vomit Code(s): J69.0 - Pneumonitis due to inhalation of food and vomit Status: Acute (3) Abnormal finding on urinalysis: Code(s): R82.90 - Unspecified abnormal findings in urine Status: Acute Plan Seizure, unwitnessed Keppra 1500mg bid Seizure precaution Consider CT/MRI EEG as per Neurology Neurology following Accu-Cheks Ativan 2 mg IV p.r.n. q.6 hours for seizures Aspiration pneumonia now on Levaquin and Flagyl Monitor vital Monitor culture Reviewed chest X-Ray (3) Abnormal finding on urinalysis: discontinued Unasyn due to possible rash Pending urine culture Can deescalate antibiotic once culture results (4) Rash: Allergy vs Cellulitis COntineu Levaquin adn Flagyl, Vanc added on prednisone 40 mg p.o., Benardryl PRN and Claritin daily ID consulted DVT prophyalsix on Eliquis Subjective Date/time seen: 03/07/25 17:19 Interval history: Patient having itching and has been NPO the past 2 days Started on IVF today Review of Systems Review of Systems: Unobtainable due to the patient's mental status Exam Narrative: Weight 131.5 kg BMI 38.2 Const: Other: Chronically ill-appearing but no acute distress, somnolent, chronically debilitated, morbidly obese, generalized anasarca, lying on the ER stretcher with head of bed at 20? HENMT: Other: Mucous membranes are dry, crowded posterior oropharynx Eyes: Other: Pupils are equal and reactive but patient does not track movement around the room Neck: Other: Large neck circumference, no JVD, thyroid goiter palpable larger on the left than the right (confirmed by prior CT scan 03/01/2025) Resp: Other: Sonorous respirations, periods of apnea, decreased breath sounds bilaterally, no increased work of breathing Cardio: Other: Regular rate, regular rhythm, no JVD GI: Other: Obese, distended, soft, positive bowel sounds, ostomy in the right abdomen with good output with the bag filled with gas : Other: Pereira catheter in place with drainage of clear urine Skin: Other: Erythema increased warmth to the medial left upper arm, some mild erythema to the right forearm but no increased warmth, anasarca changes to all extremities but bilateral upper extremities worse than lower extremities chronic, dried flaking skin bilateral feet, no foot wounds, thick yellow toenails Neuro: Other: Lethargic, difficult to arouse, does not follow commands but is moving bilateral upper extremities equally Extrem: Other: Pitting edema bilateral upper extremities, patient has well-healed scar on the left foot consistent with history of prior left great toe amputation, waffle boots in place bilaterally Psych: Other: Somnolent, difficult to arouse otherwise unable to assess due to patient condition Objective Data Vital Signs Vital Signs: Vital Signs - 24 hr 03/06/25 18:00 03/06/25 20:00 03/06/25 20:00 Temperature 98.8 F Pulse Rate 78 85 Respiratory Rate 20 Blood Pressure 133/45 L Pulse Oximetry 100 99 Oxygen Delivery Nasal Cannula Oxygen Flow Rate 2 Fraction of Inspired Oxygen 03/06/25 20:00 03/06/25 21:43 03/06/25 21:44 Temperature Pulse Rate 86 60 60 Respiratory Rate 20 20 Blood Pressure Pulse Oximetry 99 Oxygen Delivery High Flow Nasal Cannula Oxygen Flow Rate 3 Fraction of Inspired Oxygen 32 03/06/25 22:00 03/07/25 00:00 03/07/25 00:00 Temperature 99.5 F Pulse Rate 82 91 Respiratory Rate 22 H Blood Pressure 126/37 L Pulse Oximetry 100 100 Oxygen Delivery High Flow Nasal Cannula Oxygen Flow Rate 2 Fraction of Inspired Oxygen 03/07/25 00:00 03/07/25 02:00 03/07/25 04:00 Temperature Pulse Rate 88 104 H Respiratory Rate Blood Pressure Pulse Oximetry 100 Oxygen Delivery High Flow Nasal Cannula Oxygen Flow Rate 2 Fraction of Inspired Oxygen 03/07/25 04:00 03/07/25 04:00 03/07/25 07:38 Temperature 99.6 F Pulse Rate 88 98 104 H Respiratory Rate 22 H 20 Blood Pressure 117/46 L Pulse Oximetry 98 Oxygen Delivery Oxygen Flow Rate Fraction of Inspired Oxygen 03/07/25 07:40 03/07/25 07:51 03/07/25 08:00 Temperature 98.7 F Pulse Rate 104 H 108 H 102 H Respiratory Rate 20 20 22 H Blood Pressure 101/53 L Pulse Oximetry 96 95 Oxygen Delivery High Flow Nasal Cannula Oxygen Flow Rate 2 Fraction of Inspired Oxygen 28 03/07/25 08:00 03/07/25 10:00 03/07/25 12:00 Temperature Pulse Rate 102 H 86 71 Respiratory Rate Blood Pressure Pulse Oximetry Oxygen Delivery Oxygen Flow Rate Fraction of Inspired Oxygen 03/07/25 12:07 03/07/25 14:00 03/07/25 14:32 Temperature 97.5 F L Pulse Rate 89 95 86 Respiratory Rate 22 H 20 Blood Pressure 112/67 Pulse Oximetry 97 Oxygen Delivery Oxygen Flow Rate Fraction of Inspired Oxygen 03/07/25 14:45 03/07/25 16:00 03/07/25 16:00 Temperature 97.7 F Pulse Rate 90 91 84 Respiratory Rate 20 22 H Blood Pressure 136/68 Pulse Oximetry 98 Oxygen Delivery Oxygen Flow Rate Fraction of Inspired Oxygen Intake/Output Intake/Output: Intake & Output 03/04/25 03/05/25 03/06/25 03/07/25 23:59 23:59 23:59 23:59 Intake Total 1300 800 400 Output Total 625 525 Balance 1300 175 -125 Meds/Results Medications: Active Medications Generic Name Dose Route Start Last Admin Trade Name Freq PRN Reason Stop Dose Admin Acetaminophen 650 mg 03/05/25 23:48 Acetaminophen 325 Mg Tablet PO Q4H PRN Mild Pain (1-3) or Fever Apixaban 5 mg 03/07/25 21:00 Apixaban 5 Mg Tablet PO Q12HR VAIBHAV Diclofenac Sodium 1 applic 03/07/25 21:00 Diclofenac Sodium 1% 100 Gm Gel (*Bkc) TOPICAL Q12HR VAIBHAV Diltiazem HCl 30 mg 03/07/25 14:00 03/07/25 13:24 Diltiazem Hcl 30 Mg Tablet PO 30 mg Q8HR VAIBHAV Administration Diphenhydramine HCl 25 mg 03/07/25 08:21 03/07/25 14:34 Diphenhydramine Hcl Inj 50 Mg/Ml Vial IV PUSH 25 mg Q6HR PRN Administration Itching Fluticasone Propionate 2 spray 03/06/25 09:00 03/07/25 09:04 Fluticasone Propionate 0.05% Na Spr 16 Gm Btl (*Bkc) NASAL 2 spray DAILY VAIBHAV Administration Furosemide 40 mg 03/06/25 09:00 03/07/25 09:03 Furosemide 40 Mg Tablet PO 40 mg DAILY VAIBHAV Administration Hydrocortisone 1 applic 03/07/25 09:55 03/07/25 10:38 Hydrocortisone 1% 30 Gm Cream TOPICAL 1 applic Q12HR VAIBHAV Administration Levetiracetam 1,000 mg in 100 mls @ 400 mls/hr 03/05/25 23:55 03/07/25 09:00 Keppra Iv IVPB Infused Q12HR VAIBHAV Infusion Metronidazole 500 mg in 100 mls @ 100 mls/hr 03/07/25 12:00 03/07/25 12:16 Flagyl 500 Mg/Iso Soln 100 Ml IVPB 100 mls/hr Q8HR VAIBHAV Administration Levofloxacin/Dextrose 750 mg in 150 mls @ 100 mls/hr 03/07/25 10:15 03/07/25 10:39 Levaquin 750 Mg/D5w 150 Ml IVPB 100 mls/hr Q48HR VAIBHAV Administration Sodium Chloride 1,000 mls @ 100 mls/hr 03/07/25 16:30 03/07/25 17:03 Normal Saline Iv IV CONT 100 mls/hr .Q10H VAIBHAV Administration Ipratropium [place] 0.5 mg 03/06/25 09:00 03/07/25 14:30 Ipratropium Br 0.02% Inh Soln 0.5 Mg/2.5 Ml Vial INHALATION 0.5 mg TIDRT VAIBHAV Administration Levothyroxine Sodium 25 mcg 03/07/25 06:30 03/07/25 05:39 Levothyroxine Sodium 25 Mcg Tablet PO 25 mcg DAILY@0630 VAIBHAV Administration Lidocaine 2 patch 03/07/25 09:00 03/07/25 10:38 Lidocaine 5% Patch TRANSDERM 2 patch DAILY VAIBHAV Administration Loratadine 10 mg 03/07/25 09:55 03/07/25 10:39 Loratadine 10 Mg Tablet PO 10 mg QAM VAIBHAV Administration Lorazepam 2 mg 03/06/25 15:52 Lorazepam Inj (*Crx) 2 Mg/Ml Vial IV PUSH Q6H PRN seizures Miscellaneous Information 1 each 03/07/25 00:01 Hydrocortisone Cream- Add Site Of Application To The Order Please XX 04/06/25 00:00 CLARIFY VAIBHAV Montelukast Sodium 10 mg 03/06/25 21:00 03/06/25 20:42 Montelukast Sodium 10 Mg Tablet PO 10 mg QHS VAIBHAV Administration Ondansetron HCl 4 mg 03/05/25 23:48 Ondansetron Inj 4 Mg/2 Ml Vial IV PUSH Q4H PRN Nausea Pantoprazole Sodium 40 mg 03/06/25 09:00 03/07/25 09:03 Pantoprazole 40 Mg Tablet PO 40 mg DAILY VAIBHAV Administration Polyethylene Glycol 17 gm 03/07/25 21:00 Polyethylene Glycol 3350 17 Gm Powd.Pack PO HS VAIBHAV Prednisone 40 mg 03/07/25 08:00 03/07/25 09:03 Prednisone 20 Mg Tablet PO 03/12/25 07:59 40 mg DAILY@0800 VAIBHAV Administration Simethicone 80 mg 03/06/25 08:15 Simethicone 80 Mg Tab.Chew PO Q6H PRN Abdominal Discomfort Sodium Chloride 1 applic 03/06/25 09:00 03/07/25 17:03 Sodium Chloride 5% Ophth Oint 3.5 Gm Tube EACH EYE 1 applic QID VAIBHAV Administration Radiology Results: ITS Impressions Chest X-Ray 03/05/25 21:12 IMPRESSION: Left lower lobe infiltrate. Head CT 03/05/25 21:31 Impression: No acute intracranial hemorrhage or suspicious mass effect. No cross-sectional imaging evidence to suggest the presence of intracranial abscess formation, as detailed above. Labs Labs: Laboratory Results - last 24 hr 03/06/25 03/07/25 20:08 04:01 WBC 16.4 H RBC 2.93 L Hgb 8.1 L Hct 25.9 L MCV 88.4 MCH 27.6 MCHC 31.3 L RDW 17.3 H Plt Count 246 MPV 9.7 Immature Gran % (Auto) 0.7 H Neut % (Auto) 71.8 Lymph % (Auto) 9.6 L [place] % (Auto) 5.9 Eos % (Auto) 11.9 H Baso % (Auto) 0.1 L Lymph # (Auto) 1.57 [place] # (Auto) 1.0 H Eos # (Auto) 2.0 H Baso # (Auto) 0.0 Abs Immat Gran (auto) 0.11 H Absolute Neuts (auto) 11.8 H Absolute Nucleated RBC 0.000 Nucleated RBC % 0.0 Sodium 132 L Potassium 3.8 Chloride 103 Carbon Dioxide 18 L Anion Gap 11 BUN 35 H Creatinine 1.78 H Estim Creat Clear Calc 46 Estimated GFR 37 L Glucose 77 POC Capillary Glucose 102 Calcium 8.1 L Quality VTE Prophylaxis VTE prophylaxis: pharmacologic ordered (Continue home Eliquis.)
[2025-03-07] MEDS: VANCOMYCIN HCL 1,000 MG in SODIUM CHLORIDE 0.9% IV 250 ML 250 MG IVPB (18:16)
[2025-03-07] MEDS: ACETAMINOPHEN 325 MG TABLET 650 MG PO (19:48)
[2025-03-07] MEDS: MONTELUKAST SODIUM 10 MG TABLET PO (19:48)
[2025-03-08] VITALS (24 sets, daily range): BP systolic 108–131; BP diastolic 47–81; PULSE 68–90; RESP 16–20; TEMP 36.4–36.8; O2SAT 95–100
[2025-03-08 03:38] LABS: Hematocrit 24.7 % (42.0-52.0); Hemoglobin 7.6 g/dL (14.0-18.0); Immature Granulocyte Percent A 0.8 % (0-0.5); Lymphocytes Absolute Auto 1.40 K/mm3 (0.9-3.2); Mean Corpuscular HGB Conc 30.8 g/dl (32-36); Mean Corpuscular Hemoglobin 27.4 pg (26-34); Mean Corpuscular Volume 89.2 fl (80-100); Nucleated Red Blood Cells Absolute Auto 0.000 K/mm3 (0.0-0.012); Nucleated Red Blood Cells Perc 0.0 % (0.0-0.2); Platelet Count Result 223 k/mm3 (150-375); Red Blood Count 2.77 M/mm3 (4.6-6.20); White Blood Count 9.3 K/mm3 (4.5-10.0)
[2025-03-08 03:52] LABS: Alanine Aminotransferase 28 U/L (6-50); Albumin Level 3.0 g/dL (3.5-5.1); Alkaline Phosphatase 175 U/L (38-126); Anion Gap 14 mmol/L (4-12); Aspartate Amino Transferase 22 U/L (17-59); Bilirubin,Total 0.7 mg/dL (0.2-1.3); Blood Urea Nitrogen 42 mg/dL (9-20); Calcium 8.3 mg/dL (8.4-10.2); Carbon Dioxide 16 mmol/L (22-30); Chloride 105 mmol/L (98-107); Estimated CRCL calculation 37 ml/min; Estimated Glomerular Filt Rate 29; Glucose 100 mg/dL (65-110); Magnesium 1.4 mg/dL (1.6-2.3); Potassium 4.5 mmol/L (3.4-5.0); Sodium 135 mmol/L (137-145); Total Protein 6.3 g/dL (6.3-8.2)
[2025-03-08] MEDS: LEVOTHYROXINE SODIUM 25 MCG TABLET PO (04:55)
[2025-03-08] MEDS: SODIUM CHLORIDE 0.9% IV 1,000 ML 100 ML IV CONT (04:55)
[2025-03-08] MEDS: metroNIDAZOLE 500 MG/ISO 100ML 500 MG/100 ML BAG 100 MG IVPB (04:56)
--- NOTE | 2025-03-08 07:55 | PCSTNOTE ---
Please refer to the Bedside Swallow Evaluation in the EMR. Please note, silent aspiration cannot be ruled out at bedside. The patient is a 74 year old male admitted with encephalopathy and pneumonia. He was last seen by this ADULT FAMILY HOME PROGRAM MANAGER on 02/22/[address] services on 02/28/25 for BSE. During those evaluations no clinical signs of aspiration were noted. The patient is being seen for a BSE due to a new admission with pneumonia. The patient was positioned up-right and presented the following consistencies: 5cc/tsp thin liquid, straw drinks thin liquid, pudding, and cracker/solid/coated with pudding. Oral Stage: The patient is edentulous and requires extra time to masticate and soften solids. However, with pudding and liquid trials oral preparation and transit were timely. Pharyngeal Stage: When presented tsp thin, straw drinks thin, pudding, and cracker trials swallow initiation was completed in a timely manner without noted clinical signs of aspiration and good laryngeal elevation. The patient had one delayed throat clear after multiple cracker trials most likely secondary to loss of bolus with extra time required to masticate the solid/cracker. Recommend: 1. Minced and Moist Diet / Level 5 2. Thin Liquid / Level 0 3. Upright with meals 4. Small bites and drinks 5. Speech services to follow with compensatory strategies.
[2025-03-08] MEDS: IPRATROPIUM BR 0.02% INH SOLN 0.5 MG/2.5 ML VIAL INHALATION ×3 (08:16→20:05)
[2025-03-08] MEDS: LORATADINE 10 MG TABLET PO (09:01)
[2025-03-08] MEDS: PANTOPRAZOLE 40 MG TABLET PO (09:01)
[2025-03-08] MEDS: FUROSEMIDE 40 MG TABLET PO (09:01)
[2025-03-08] MEDS: APIXABAN 5 MG TABLET PO ×2 (09:01→21:08)
[2025-03-08] MEDS: LIDOCAINE 5% PATCH 2 PATCH TRANSDERM (09:02)
[2025-03-08] MEDS: DICLOFENAC SODIUM 1% 100 GM GEL (*BKC) 1 APPLIC TOPICAL ×2 (09:09→21:10)
[2025-03-08] MEDS: FLUTICASONE PROPIONATE 0.05% NA SPR 16 GM BTL (*BKC) 2 SPRAY NASAL (09:09)
[2025-03-08] MEDS: HYDROCORTISONE 1% 30 GM CREAM 1 APPLIC TOPICAL ×2 (09:10→22:49)
[2025-03-08] MEDS: SODIUM CHLORIDE 5% OPHTH OINT 3.5 GM TUBE 1 APPLIC EACH EYE ×4 (09:10→21:11)
[2025-03-08] MEDS: levETIRAcetam 1000MG/NACL100ML 1,000 MG/100 ML BAG 400 MG IVPB ×2 (09:10→21:10)
[2025-03-08] MEDS: SODIUM CHLORIDE 0.9% IV 1,000 ML 75 ML IV CONT (10:00)
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
[2025-03-08] MEDS: LINEZOLID 600 MG/300 ML 600 MG/300 ML SOLN 300 MG IVPB (12:01)
[2025-03-08 12:16] LABS: Creatine Kinase < 20 U/L (55-170)
[2025-03-08] MEDS: SODIUM CHLORIDE 0.9% IVPB (13:43)
[2025-03-08] MEDS: DAPTOMYCIN IVPB (13:43)
--- NOTE | 2025-03-08 14:52 | PM.IMPN ---
Progress Note: A&P Assessment and Plan (1) Witnessed seizure-like activity: Code(s): R56.9 - Unspecified convulsions Status: Acute (2) Aspiration pneumonia of left lower lobe: Qualifiers: Aspiration pneumonia type: unspecified Qualified Code(s): J69.0 - Pneumonitis due to inhalation of food and vomit Code(s): J69.0 - Pneumonitis due to inhalation of food and vomit Status: Acute (3) Abnormal finding on urinalysis: Code(s): R82.90 - Unspecified abnormal findings in urine Status: Acute Plan Seizure, unwitnessed Keppra 1500mg bid Seizure precaution Consider CT/MRI EEG as per Neurology Neurology following Accu-Cheks Ativan 2 mg IV p.r.n. q.6 hours for seizures Aspiration pneumonia ruled out ID evaluated and noted no lung finding on chest xray Levaquin and Flagyl discontinued per ID monitor Reviewed chest X-Ray (3) Abnormal finding on urinalysis: discontinued Unasyn due to Allergy Pending urine culture Can deescalate antibiotic once culture results (4) Allergic reaction to Unasyn Itching and redness markedly improved today with dicontinuing Unasyn yesterday Continue Levaquin and Flagyl, Vanc added Continue Claritin and monitor, Hold Prednisone and monitor ID following Recent VRE bacteremia Continue Daptomycin ID following DVT prophylaxis on Eliquis Subjective Date/time seen: 03/08/25 14:52 Interval history: Comfortable at bedside Itching has resolved and erythema markedly improving Review of Systems Review of Systems: Unobtainable due to the patient's mental status Exam Narrative: Weight 131.5 kg BMI 38.2 Const: Other: Chronically ill-appearing but no acute distress, somnolent, chronically debilitated, morbidly obese, generalized anasarca, lying on the ER stretcher with head of bed at 20? HENMT: Other: Mucous membranes are dry, crowded posterior oropharynx Eyes: Other: Pupils are equal and reactive but patient does not track movement around the room Neck: Other: Large neck circumference, no JVD, thyroid goiter palpable larger on the left than the right (confirmed by prior CT scan 03/01/2025) Resp: Other: Sonorous respirations, periods of apnea, decreased breath sounds bilaterally, no increased work of breathing Cardio: Other: Regular rate, regular rhythm, no JVD GI: Other: Obese, distended, soft, positive bowel sounds, ostomy in the right abdomen with good output with the bag filled with gas : Other: Pereira catheter in place with drainage of clear urine Skin: Other: Erythema increased warmth to the medial left upper arm, some mild erythema to the right forearm but no increased warmth, anasarca changes to all extremities but bilateral upper extremities worse than lower extremities chronic, dried flaking skin bilateral feet, no foot wounds, thick yellow toenails Neuro: Other: Lethargic, difficult to arouse, does not follow commands but is moving bilateral upper extremities equally Extrem: Other: Pitting edema bilateral upper extremities, patient has well-healed scar on the left foot consistent with history of prior left great toe amputation, waffle boots in place bilaterally Psych: Other: Somnolent, difficult to arouse otherwise unable to assess due to patient condition Objective Data Vital Signs Vital Signs: Vital Signs - 24 hr 03/07/25 16:00 03/07/25 16:00 03/07/25 17:50 Temperature 97.7 F Pulse Rate 91 84 92 Respiratory Rate 22 H Blood Pressure 136/68 Pulse Oximetry 98 Oxygen Delivery Oxygen Flow Rate Fraction of Inspired Oxygen 03/07/25 20:00 03/07/25 20:00 03/07/25 20:00 Temperature 98.1 F Pulse Rate 90 89 Respiratory Rate 20 Blood Pressure 137/103 H Pulse Oximetry 97 97 Oxygen Delivery Nasal Cannula Oxygen Flow Rate 2 Fraction of Inspired Oxygen 03/07/25 20:19 03/07/25 20:19 03/07/25 20:26 Temperature Pulse Rate 85 93 Respiratory Rate 18 18 Blood Pressure Pulse Oximetry 97 Oxygen Delivery High Flow Nasal Cannula Oxygen Flow Rate 2 Fraction of Inspired Oxygen 28 03/07/25 22:00 03/08/25 00:00 03/08/25 00:00 Temperature 98.1 F Pulse Rate 89 90 Respiratory Rate 20 Blood Pressure 131/81 Pulse Oximetry 100 100 Oxygen Delivery High Flow Nasal Cannula Oxygen Flow Rate 3 Fraction of Inspired Oxygen 03/08/25 00:00 03/08/25 02:00 03/08/25 03:37 Temperature Pulse Rate 89 68 Respiratory Rate Blood Pressure Pulse Oximetry 100 Oxygen Delivery High Flow Nasal Cannula Oxygen Flow Rate 3 Fraction of Inspired Oxygen 03/08/25 04:00 03/08/25 04:00 03/08/25 06:00 Temperature 97.6 F Pulse Rate 86 79 72 Respiratory Rate 18 Blood Pressure 108/61 Pulse Oximetry 98 Oxygen Delivery Oxygen Flow Rate Fraction of Inspired Oxygen 03/08/25 08:00 03/08/25 08:02 03/08/25 08:16 Temperature 97.5 F L Pulse Rate 79 74 Respiratory Rate 20 Blood Pressure 121/47 L Pulse Oximetry 99 99 Oxygen Delivery High Flow Nasal Cannula Oxygen Flow Rate 2 Fraction of Inspired Oxygen 03/08/25 08:16 03/08/25 08:23 03/08/25 10:00 Temperature Pulse Rate 74 76 79 Respiratory Rate 18 18 Blood Pressure Pulse Oximetry Oxygen Delivery Oxygen Flow Rate Fraction of Inspired Oxygen 03/08/25 11:46 03/08/25 12:00 03/08/25 13:44 Temperature 98.2 F Pulse Rate 71 79 79 Respiratory Rate 20 18 Blood Pressure 114/58 L Pulse Oximetry 95 Oxygen Delivery Oxygen Flow Rate Fraction of Inspired Oxygen 03/08/25 13:51 03/08/25 13:55 Temperature Pulse Rate 78 78 Respiratory Rate 18 Blood Pressure Pulse Oximetry Oxygen Delivery Oxygen Flow Rate Fraction of Inspired Oxygen Intake/Output Intake/Output: Intake & Output 03/05/25 03/06/25 03/07/25 03/08/25 23:59 23:59 23:59 23:59 Intake Total 1300 313 425 0935 Output Total 625 525 300 Balance 1300 504 56 7815 Meds/Results Medications: Active Medications Generic Name Dose Route Start Last Admin Trade Name Freq PRN Reason Stop Dose Admin Acetaminophen 650 mg 03/05/25 23:48 03/07/25 19:48 Acetaminophen 325 Mg Tablet PO 650 mg Q4H PRN Administration Mild Pain (1-3) or Fever Apixaban 5 mg 03/07/25 21:00 03/08/25 09:01 Apixaban 5 Mg Tablet PO 5 mg Q12HR VAIBHAV Administration Diclofenac Sodium 1 applic 03/07/25 21:00 03/08/25 09:09 Diclofenac Sodium 1% 100 Gm Gel (*Bkc) TOPICAL 1 applic Q12HR VAIBHAV Administration Diltiazem HCl 30 mg 03/07/25 14:00 03/08/25 13:44 Diltiazem Hcl 30 Mg Tablet PO 30 mg Q8HR VAIBHAV Administration Diphenhydramine HCl 25 mg 03/07/25 08:21 03/07/25 23:22 Diphenhydramine Hcl Inj 50 Mg/Ml Vial IV PUSH 25 mg Q6HR PRN Administration Itching Fluticasone Propionate 2 spray 03/06/25 09:00 03/08/25 09:09 Fluticasone Propionate 0.05% Na Spr 16 Gm Btl (*Bkc) NASAL 2 spray DAILY VAIBHAV Administration Furosemide 40 mg 03/06/25 09:00 03/08/25 09:01 Furosemide 40 Mg Tablet PO 40 mg DAILY VAIBHAV Administration Hydrocortisone 1 applic 03/07/25 09:55 03/08/25 09:10 Hydrocortisone 1% 30 Gm Cream TOPICAL 1 applic Q12HR VAIBHAV Administration Hydroxyzine HCl 25 mg 03/08/25 00:55 03/08/25 04:55 Hydroxyzine Hcl 25 Mg Tablet PO 25 mg Q8H PRN Administration Itching Levetiracetam 1,000 mg in 100 mls @ 400 mls/hr 03/05/25 23:55 03/08/25 09:10 Keppra Iv IVPB 400 mls/hr Q12HR VAIBHAV Administration Daptomycin 800 mg/ Sodium 50 mls @ 100 mls/hr 03/08/25 13:00 03/08/25 13:43 Chloride IVPB 100 mls/hr DAILY VAIBHAV Administration Sodium Chloride 1,000 mls @ 75 mls/hr 03/07/25 10:00 03/08/25 10:00 Normal Saline Iv IV CONT 75 mls/hr .[id number] VAIBHAV Administration Ipratropium [place] 0.5 mg 03/06/25 09:00 03/08/25 13:44 Ipratropium Br 0.02% Inh Soln 0.5 Mg/2.5 Ml Vial INHALATION 0.5 mg TIDRT VAIBHAV Administration Levothyroxine Sodium 25 mcg 03/07/25 06:30 03/08/25 04:55 Levothyroxine Sodium 25 Mcg Tablet PO 25 mcg DAILY@0630 VAIBHAV Administration Lidocaine 2 patch 03/07/25 09:00 03/08/25 09:02 Lidocaine 5% Patch TRANSDERM 2 patch DAILY VAIBHAV Administration Loratadine 10 mg 03/07/25 09:55 03/08/25 09:01 Loratadine 10 Mg Tablet PO 10 mg QAM VAIBHAV Administration Lorazepam 2 mg 03/06/25 15:52 Lorazepam Inj (*Crx) 2 Mg/Ml Vial IV PUSH Q6H PRN seizures Montelukast Sodium 10 mg 03/06/25 21:00 03/07/25 19:48 Montelukast Sodium 10 Mg Tablet PO 10 mg QHS VAIBHAV Administration Ondansetron HCl 4 mg 03/05/25 23:48 Ondansetron Inj 4 Mg/2 Ml Vial IV PUSH Q4H PRN Nausea Pantoprazole Sodium 40 mg 03/06/25 09:00 03/08/25 09:01 Pantoprazole 40 Mg Tablet PO 40 mg DAILY VAIBHAV Administration Polyethylene Glycol 17 gm 03/07/25 21:00 03/07/25 19:55 Polyethylene Glycol 3350 17 Gm Powd.Pack PO Not Given HS VAIBHAV Prednisone 40 mg 03/07/25 08:00 03/08/25 09:01 Prednisone 20 Mg Tablet PO 03/12/25 07:59 40 mg DAILY@0800 VAIBHAV Administration Simethicone 80 mg 03/06/25 08:15 Simethicone 80 Mg Tab.Chew PO Q6H PRN Abdominal Discomfort Sodium Chloride 1 applic 03/06/25 09:00 03/08/25 12:01 Sodium Chloride 5% Ophth Oint 3.5 Gm Tube EACH EYE 1 applic QID VAIBHAV Administration Radiology Results: ITS Impressions Chest X-Ray 03/05/25 21:12 IMPRESSION: Left lower lobe infiltrate. Head CT 03/05/25 21:31 Impression: No acute intracranial hemorrhage or suspicious mass effect. No cross-sectional imaging evidence to suggest the presence of intracranial abscess formation, as detailed above. Labs Labs: Laboratory Results - last 24 hr 03/08/25 03:32 WBC 9.3 RBC 2.77 L Hgb 7.6 L Hct 24.7 L MCV 89.2 MCH 27.4 MCHC 30.8 L RDW 17.1 H Plt Count 223 MPV 9.4 Immature Gran % (Auto) 0.8 H Neut % (Auto) 80.7 H Lymph % (Auto) 15.1 L [place] % (Auto) 2.9 Eos % (Auto) 0.4 Baso % (Auto) 0.1 L Lymph # (Auto) 1.40 [place] # (Auto) 0.3 Eos # (Auto) 0.0 Baso # (Auto) 0.0 Abs Immat Gran (auto) 0.07 H Absolute Neuts (auto) 7.5 H Absolute Nucleated RBC 0.000 Nucleated RBC % 0.0 Sodium 135 L Potassium 4.5 Chloride 105 Carbon Dioxide 16 L Anion Gap 14 H BUN 42 H Creatinine 2.25 H Estim Creat Clear Calc 37 Estimated GFR 29 L Glucose 100 Lactic Acid 0.9 Calcium 8.3 L Magnesium 1.4 L Total Bilirubin 0.7 AST 22 ALT 28 Alkaline Phosphatase 175 H Total Creatine Kinase < 20 L Total Protein 6.3 Albumin 3.0 L Quality VTE Prophylaxis VTE prophylaxis: pharmacologic ordered (Continue home Eliquis.)
[2025-03-08] MEDS: MONTELUKAST SODIUM 10 MG TABLET PO (21:08)
[2025-03-09] VITALS (22 sets, daily range): BP systolic 119–130; BP diastolic 48–55; PULSE 59–76; RESP 16–22; TEMP 36.4–36.7; O2SAT 92–99
[2025-03-09] MEDS: SODIUM CHLORIDE 0.9% IV 1,000 ML 75 ML IV CONT ×2 (00:06→08:57)
[2025-03-09 04:50] LABS: Hematocrit 23.5 % (42.0-52.0); Hemoglobin 7.1 g/dL (14.0-18.0); Immature Granulocyte Percent A 0.8 % (0-0.5); Immature Platelet Fraction Pct 1.9 % (0.9-11.2); Lymphocytes Absolute Auto 1.33 K/mm3 (0.9-3.2); Mean Corpuscular HGB Conc 30.2 g/dl (32-36); Mean Corpuscular Hemoglobin 27.1 pg (26-34); Mean Corpuscular Volume 89.7 fl (80-100); Nucleated Red Blood Cells Absolute Auto 0.000 K/mm3 (0.0-0.012); Nucleated Red Blood Cells Perc 0.0 % (0.0-0.2); Platelet Count Result 209 k/mm3 (150-375); Red Blood Count 2.62 M/mm3 (4.6-6.20); White Blood Count 10.0 K/mm3 (4.5-10.0)
[2025-03-09 05:14] LABS: Band Neutrophils Percent 0 % (0-6); Schistocytes None Seen
[2025-03-09 05:15] LABS: Burr Cells Occasional; Ovalocytes Occasional
[2025-03-09 05:16] LABS: Alanine Aminotransferase 27 U/L (6-50); Albumin Level 2.7 g/dL (3.5-5.1); Alkaline Phosphatase 151 U/L (38-126); Anion Gap 10 mmol/L (4-12); Aspartate Amino Transferase 23 U/L (17-59); Bilirubin,Total 0.6 mg/dL (0.2-1.3); Blood Urea Nitrogen 51 mg/dL (9-20); Calcium 8.0 mg/dL (8.4-10.2); Carbon Dioxide 16 mmol/L (22-30); Chloride 106 mmol/L (98-107); Estimated CRCL calculation 36 ml/min; Estimated Glomerular Filt Rate 28; Glucose 116 mg/dL (65-110); Magnesium 1.7 mg/dL (1.6-2.3); Potassium 4.2 mmol/L (3.4-5.0); Sodium 132 mmol/L (137-145); Total Protein 5.9 g/dL (6.3-8.2)
[2025-03-09] MEDS: LEVOTHYROXINE SODIUM 25 MCG TABLET PO (05:33)
[2025-03-09] MEDS: IPRATROPIUM BR 0.02% INH SOLN 0.5 MG/2.5 ML VIAL INHALATION ×3 (08:34→21:35)
[2025-03-09] MEDS: LIDOCAINE 5% PATCH 2 PATCH TRANSDERM (08:50)
[2025-03-09] MEDS: levETIRAcetam 1000MG/NACL100ML 1,000 MG/100 ML BAG 400 MG IVPB ×2 (08:53→21:53)
[2025-03-09] MEDS: PANTOPRAZOLE 40 MG TABLET PO (08:54)
[2025-03-09] MEDS: FUROSEMIDE 40 MG TABLET PO (08:54)
[2025-03-09] MEDS: HYDROCORTISONE 1% 30 GM CREAM 1 APPLIC TOPICAL (08:55)
[2025-03-09] MEDS: APIXABAN 5 MG TABLET PO ×2 (08:55→21:52)
[2025-03-09] MEDS: LORATADINE 10 MG TABLET PO (08:55)
[2025-03-09] MEDS: FLUTICASONE PROPIONATE 0.05% NA SPR 16 GM BTL (*BKC) 2 SPRAY NASAL (08:56)
--- NOTE | 2025-03-09 10:34 | PCNFU ---
Nutrition Follow-Up Complete: Inadequate oral intake related to altered mental status as evidenced by NPO Diet advancement - Goal is met Intakes >50% - Progressing to goal. Intakes 100% Goal: Pt current nutrition is Heart healthy diet, Minced & Moist L5. Ensure +HP BID (350 kcal, 20 g protein). Nutrition recommendation: No new recommendations. Continue current nutrition orders. Agree with orders Last recorded weight is 131 kg. Bowel Motility: +1 BM 03/09/25 Labs Reviewed: Hgb 7.1, Hct, 23.5, Alb 2.7, Na 132, BUN 51, Cre 2.27 Meds Noted: Lasix, Keppra, prednisone Skin: No pressure Additional Notes: Diet advanced and patient eating 100% meals. Back to baseline. Continue current orders Monitoring diet orders, weights, labs, mental status, output, plan of care Follow up in 3 days
--- NOTE | 2025-03-09 11:40 | WPDINFPN2 ---
Progress Note: A&P Assessment and Plan (1) Bacteremia: Code(s): R78.81 - Bacteremia Status: Acute (2) Enterococcal bacteremia: Code(s): R78.81 - Bacteremia; B95.2 - Enterococcus as the cause of diseases classified elsewhere Status: Acute (3) Rash: Code(s): R21 - Rash and other nonspecific skin eruption Status: Acute (4) Altered mental status: Qualifiers: Altered mental status type: delirium Qualified Code(s): R41.0 - Disorientation, unspecified Code(s): R41.82 - Altered mental status, unspecified Status: Acute (5) Seizure: Code(s): R56.9 - Unspecified convulsions Status: Acute (6) H/O colectomy: Code(s): Z90.49 - Acquired absence of other specified parts of digestive tract Status: Acute Plan # Gram positive Bacteremia. -- / bottles. -- recently with isolated Enterococcus faecalis (VRE ) bacteremia. # Possible sepsis associated with bacteremia. # Recent isolated Enterococcus faecalis (VRE) bacteremia # Altered mental status secondary to sepsis versus recurrent seizures versus postictal state. # Erythroderma, resolved. With eosinophilia consider allergic reaction. May be secondary to recent Unasyn. Linezolid also possible but less likely. Keppra is a new medication and might be associated but erythroderma resolving while still receiving Keppra. # Left lower lobe infiltrate seen now and during last hospitalization without radiographic worsening and without significant symptoms of pneumonia. Doubt active pneumonia at this time. Plan: -- await further blood culture identification. If again with Enterococcus may need JAIMIE. -- continue daptomycin 8 milligrams/kilogram IV Q 24 hours for Gram-positive bacteremia with the possibility of VRE involvement. Although linezolid less likely to be associated with seizures or adverse drug eruption will hold on further dosing of this agent at this time. -- avoid penicillins given the possibility of Unasyn-associated dermatitis. -- with presentation erythroderma, dermatitis, and eosinophilia would also avoid antibiotics unless absolutely required. Do not believe current chest x-ray findings represent a new or ongoing process and recommend discontinuing levofloxacin and metronidazole. -- continue steroids for drug eruption but monitor for erythroderma improvement or worsening while on continued Keppra. This Consult was performed via telemedicine while I was in [place] and the patient was in [place], [place], via audio and visual HIPAA protected interface and with patient's /POA consent. Subjective Date/time seen: 03/09/25 11:40 Interval history: 03/09/2025: Afebrile and vital signs stable. Erythema has resolved. No further evidence of left arm cellulitis and fluid weeping has resolved. Blood cultures 03/05: Positive for 4 bottles for Gram-positive cocci. No mention of clusters or chains. Urine culture 03/05: Less than 10,000 colonies of mixed organism growth. Review of Systems Review of Systems: Resolution of pruritus. He denies significant cough, shortness of breath, or chest discomfort. All systems reviewed & are unremarkable except as noted in HPI and below Exam Narrative: Sitting in bed and appears comfortable. Awake, alert, and able to answer questions. Diffuse erythroderma present on admission now resolved. Generalized anasarca. Left arm fluid weeping resolved. Normal respiratory effort. Without significant abdominal distention. Objective Data Vital Signs Vital Signs: Vital Signs - 24 hr 03/08/25 11:46 03/08/25 12:00 03/08/25 13:44 Temperature 98.2 F Pulse Rate 71 79 79 Respiratory Rate 20 18 Blood Pressure 114/58 L Pulse Oximetry 95 Oxygen Delivery Oxygen Flow Rate Fraction of Inspired Oxygen 03/08/25 13:51 03/08/25 13:55 03/08/25 15:46 Temperature 98.1 F Pulse Rate 78 78 73 Respiratory Rate 18 20 Blood Pressure 117/48 L Pulse Oximetry 100 Oxygen Delivery Oxygen Flow Rate Fraction of Inspired Oxygen 03/08/25 16:00 03/08/25 18:00 03/08/25 19:31 Temperature 97.6 F Pulse Rate 74 73 73 Respiratory Rate 16 Blood Pressure 120/57 L Pulse Oximetry 100 Oxygen Delivery Oxygen Flow Rate Fraction of Inspired Oxygen 03/08/25 20:00 03/08/25 20:05 03/08/25 20:07 Temperature Pulse Rate 71 70 70 Respiratory Rate 20 20 Blood Pressure Pulse Oximetry 100 Oxygen Delivery Nasal Cannula Oxygen Flow Rate 2 Fraction of Inspired Oxygen 28 03/08/25 22:00 03/08/25 23:41 03/09/25 00:00 Temperature 97.7 F Pulse Rate 71 70 70 Respiratory Rate 18 Blood Pressure 131/51 L Pulse Oximetry 100 Oxygen Delivery Oxygen Flow Rate Fraction of Inspired Oxygen 03/09/25 02:00 03/09/25 04:00 03/09/25 04:00 Temperature 98 F Pulse Rate 69 62 63 Respiratory Rate 18 Blood Pressure 128/55 L Pulse Oximetry 95 Oxygen Delivery Oxygen Flow Rate Fraction of Inspired Oxygen 03/09/25 06:00 03/09/25 08:08 03/09/25 08:30 Temperature 97.8 F Pulse Rate 59 L 64 69 Respiratory Rate 20 18 Blood Pressure 130/55 L Pulse Oximetry 96 Oxygen Delivery Oxygen Flow Rate Fraction of Inspired Oxygen 03/09/25 08:36 03/09/25 08:38 Temperature Pulse Rate 69 Respiratory Rate 18 Blood Pressure Pulse Oximetry 96 Oxygen Delivery High Flow Therapy with Na Oxygen Flow Rate 2 Fraction of Inspired Oxygen Intake/Output Intake/Output: Intake & Output 03/06/25 03/07/25 03/08/25 03/09/25 23:59 23:59 23:59 23:59 Intake Total 294 805 8414 1323.8 Output Total 625 525 900 550 Balance 129 13 6784 773.8 Meds/Results Medications: Active Medications Generic Name Dose Route Start Last Admin Trade Name Freq PRN Reason Stop Dose Admin Acetaminophen 650 mg 03/05/25 23:48 03/07/25 19:48 Acetaminophen 325 Mg Tablet PO 650 mg Q4H PRN Administration Mild Pain (1-3) or Fever Apixaban 5 mg 03/07/25 21:00 03/09/25 08:55 Apixaban 5 Mg Tablet PO 5 mg Q12HR VAIBHAV Administration Diclofenac Sodium 1 applic 03/07/25 21:00 03/09/25 08:57 Diclofenac Sodium 1% 100 Gm Gel (*Bkc) TOPICAL Not Given Q12HR VAIBHAV Diltiazem HCl 30 mg 03/07/25 14:00 03/09/25 05:33 Diltiazem Hcl 30 Mg Tablet PO 30 mg Q8HR VAIBHAV Administration Diphenhydramine HCl 25 mg 03/07/25 08:21 03/08/25 21:10 Diphenhydramine Hcl Inj 50 Mg/Ml Vial IV PUSH 25 mg Q6HR PRN Administration Itching Fluticasone Propionate 2 spray 03/06/25 09:00 03/09/25 08:56 Fluticasone Propionate 0.05% Na Spr 16 Gm Btl (*Bkc) NASAL 2 spray DAILY VAIBHAV Administration Furosemide 40 mg 03/06/25 09:00 03/09/25 08:54 Furosemide 40 Mg Tablet PO 40 mg DAILY VAIBHAV Administration Hydrocortisone 1 applic 03/07/25 09:55 03/09/25 08:55 Hydrocortisone 1% 30 Gm Cream TOPICAL 1 applic Q12HR VAIBHAV Administration Hydroxyzine HCl 25 mg 03/08/25 00:55 03/09/25 00:06 Hydroxyzine Hcl 25 Mg Tablet PO 25 mg Q8H PRN Administration Itching Levetiracetam 1,000 mg in 100 mls @ 400 mls/hr 03/05/25 23:55 03/09/25 08:53 Keppra Iv IVPB 400 mls/hr Q12HR VAIBHAV Administration Daptomycin 800 mg/ Sodium 50 mls @ 100 mls/hr 03/08/25 13:00 03/08/25 14:13 Chloride IVPB Infused DAILY VAIBHAV Infusion Sodium Chloride 1,000 mls @ 75 mls/hr 03/07/25 10:00 03/09/25 09:05 Normal Saline Iv IV CONT Not Given .[id number] VAIBHAV Ipratropium [place] 0.5 mg 03/06/25 09:00 03/09/25 08:34 Ipratropium Br 0.02% Inh Soln 0.5 Mg/2.5 Ml Vial INHALATION 0.5 mg TIDRT VAIBHAV Administration Levothyroxine Sodium 25 mcg 03/07/25 06:30 03/09/25 05:33 Levothyroxine Sodium 25 Mcg Tablet PO 25 mcg DAILY@0630 VAIBHAV Administration Lidocaine 2 patch 03/07/25 09:00 03/09/25 08:50 Lidocaine 5% Patch TRANSDERM 2 patch DAILY VAIBHAV Administration Loratadine 10 mg 03/07/25 09:55 03/09/25 08:55 Loratadine 10 Mg Tablet PO 10 mg QAM VAIBHAV Administration Lorazepam 2 mg 03/09/25 11:25 Lorazepam (*Crx) 1 Mg Tablet BY MOUTH Q6H PRN seizures Montelukast Sodium 10 mg 03/06/25 21:00 03/08/25 21:08 Montelukast Sodium 10 Mg Tablet PO 10 mg QHS VAIBHAV Administration Ondansetron HCl 4 mg 03/05/25 23:48 Ondansetron Inj 4 Mg/2 Ml Vial IV PUSH Q4H PRN Nausea Pantoprazole Sodium 40 mg 08/18/25 09:00 03/09/25 08:54 Pantoprazole 40 Mg Tablet PO 40 mg DAILY VAIBHAV Administration Polyethylene Glycol 17 gm 03/07/25 21:00 03/08/25 22:50 Polyethylene Glycol 3350 17 Gm Powd.Pack PO 17 gm HS VAIBHAV Administration Prednisone 40 mg 03/07/25 08:00 03/09/25 08:54 Prednisone 20 Mg Tablet PO 03/12/25 07:59 40 mg DAILY@0800 VAIBHAV Administration Simethicone 80 mg 03/06/25 08:15 Simethicone 80 Mg Tab.Chew PO Q6H PRN Abdominal Discomfort Sodium Chloride 1 applic 03/06/25 09:00 03/09/25 08:55 Sodium Chloride 5% Ophth Oint 3.5 Gm Tube EACH EYE Not Given QID [facility] Radiology Results: ITS Impressions Chest X-Ray 03/05/25 21:12 IMPRESSION: Left lower lobe infiltrate. Head CT 03/05/25 21:31 Impression: No acute intracranial hemorrhage or suspicious mass effect. No cross-sectional imaging evidence to suggest the presence of intracranial abscess formation, as detailed above. Labs Labs: Laboratory Results - last 24 hr 03/08/25 03/09/25 03:32 03:54 WBC 10.0 RBC 2.62 L Hgb 7.1 L Hct 23.5 L MCV 89.7 MCH 27.1 MCHC 30.2 L RDW 16.9 H Plt Count 209 MPV 10.2 Immature Gran % (Auto) 0.8 H Neut % (Auto) 77.6 H Lymph % (Auto) 13.3 L [place] % (Auto) 7.5 Eos % (Auto) 0.7 Baso % (Auto) 0.1 L Lymph # (Auto) 1.33 [place] # (Auto) 0.8 H Eos # (Auto) 0.1 Baso # (Auto) 0.0 Abs Immat Gran (auto) 0.08 H Absolute Neuts (auto) 7.8 H Absolute Nucleated RBC 0.000 Band Neutrophils % 0 Nucleated RBC % 0.0 Platelet Estimate Adequate % Immature Plt Fraction 1.9 Ovalocytes Occasional [place] Cells Occasional Schistocytes None seen Sodium 132 L Potassium 4.2 Chloride 106 Carbon Dioxide 16 L Anion Gap 10 BUN 51 H Creatinine 2.27 H Estim Creat Clear Calc 36 Estimated GFR 28 L Glucose 116 H Calcium 8.0 L Magnesium 1.7 Total Bilirubin 0.6 AST 23 ALT 27 Alkaline Phosphatase 151 H Total Creatine Kinase < 20 L Total Protein 5.9 L Albumin 2.7 L
[2025-03-09] MEDS: SODIUM CHLORIDE 0.9% IVPB (12:24)
[2025-03-09] MEDS: DAPTOMYCIN IVPB (12:24)
--- NOTE | 2025-03-09 18:08 | P.PNIM_ITS ---
Progress Note: A&P Assessment and Plan (1) Witnessed seizure-like activity: Code(s): R56.9 - Unspecified convulsions Status: Acute (2) Aspiration pneumonia of left lower lobe: Qualifiers: Aspiration pneumonia type: unspecified Qualified Code(s): J69.0 - Pneumonitis due to inhalation of food and vomit Code(s): J69.0 - Pneumonitis due to inhalation of food and vomit Status: Acute (3) Abnormal finding on urinalysis: Code(s): R82.90 - Unspecified abnormal findings in urine Status: Acute Plan Seizure, unwitnessed Keppra 1500mg bid Seizure precaution Consider CT/MRI EEG as per Neurology Neurology following Accu-Cheks Ativan 2 mg IV p.r.n. q.6 hours for seizures Aspiration pneumonia ruled out ID evaluated and noted no lung finding on chest xray Levaquin and Flagyl discontinued per ID monitor Reviewed chest X-Ray (3) Abnormal finding on urinalysis: discontinued Unasyn due to Allergy Pending urine culture Can deescalate antibiotic once culture results (4) Allergic reaction to Unasyn Itching and redness markedly improved today with dicontinuing Unasyn yesterday Continue Levaquin and Flagyl, Vanc added Continue Claritin and monitor, Hold Prednisone and monitor ID following Recent VRE bacteremia Continue Daptomycin Monitor repeat blood culture, if positive will need JAIMIE ID following DVT prophylaxis on Eliquis Subjective Date/time seen: 03/09/25 18:08 Interval history: Comfortable at bedside itching resolved Review of Systems Review of Systems: Unobtainable due to the patient's mental status Exam Narrative: Weight 131.5 kg BMI 38.2 Const: Other: Chronically ill-appearing but no acute distress, somnolent, chronically debilitated, morbidly obese, generalized anasarca, lying on the ER stretcher wit h head of bed at 20? HENMT: Other: Mucous membranes are dry, crowded posterior oropharynx Eyes: Other: Pupils are equal and reactive but patient does not track movement around the room Neck: Other: Large neck circumference, no JVD, thyroid goiter palpable larger on the left than the right (confirmed by prior CT scan 03/01/2025) Resp: Other: Sonorous respirations, periods of apnea, decreased breath sounds bilaterally, no increased work of breathing Cardio: Other: Regular rate, regular rhythm, no JVD GI: Other: Obese, distended, soft, positive bowel sounds, ostomy in the right abdomen with good output with the bag filled with gas : Other: Pereira catheter in place with drainage of clear urine Skin: Other: Erythema increased warmth to the medial left upper arm, some mild erythema to the right forearm but no increased warmth, anasarca changes to all extremities but bilateral upper extremities worse than lower extremities chronic, dried flaking skin bilateral feet, no foot wounds, thick yellow toenails Neuro: Other: Lethargic, difficult to arouse, does not follow commands but is moving bilateral upper extremities equally Extrem: Other: Pitting edema bilateral upper extremities, patient has well-healed scar on the left foot consistent with history of prior left great toe amputation, waffle boots in place bilaterally Psych: Other: Somnolent, difficult to arouse otherwise unable to assess due to patient condition Objective Data Vital Signs Vital Signs: Vital Signs - 24 hr 03/08/25 19:31 03/08/25 20:00 03/08/25 20:05 Temperature 97.6 F Pulse Rate 73 71 70 Respiratory Rate 16 20 Blood Pressure 120/57 L Pulse Oximetry 100 Oxygen Delivery Oxygen Flow Rate Fraction of Inspired Oxygen 03/08/25 20:07 03/08/25 22:00 03/08/25 23:41 Temperature 97.7 F Pulse Rate 70 71 70 Respiratory Rate 20 18 Blood Pressure 131/51 L Pulse Oximetry 100 100 Oxygen Delivery Nasal Cannula Oxygen Flow Rate 2 Fraction of Inspired Oxygen 28 03/09/25 00:00 03/09/25 02:00 03/09/25 04:00 Temperature 98 F Pulse Rate 70 69 62 Respiratory Rate 18 Blood Pressure 128/55 L Pulse Oximetry 95 Oxygen Delivery Oxygen Flow Rate Fraction of Inspired Oxygen 03/09/25 04:00 03/09/25 06:00 03/09/25 08:00 Temperature Pulse Rate 63 59 L 73 Respiratory Rate Blood Pressure Pulse Oximetry Oxygen Delivery Oxygen Flow Rate Fraction of Inspired Oxygen 03/09/25 08:08 03/09/25 08:30 03/09/25 08:36 Temperature 97.8 F Pulse Rate 64 69 Respiratory Rate 20 18 Blood Pressure 130/55 L Pulse Oximetry 96 96 Oxygen Delivery High Flow Therapy with Na Oxygen Flow Rate 2 Fraction of Inspired Oxygen 03/09/25 08:38 03/09/25 10:00 03/09/25 12:00 Temperature Pulse Rate 69 71 75 Respiratory Rate 18 Blood Pressure Pulse Oximetry Oxygen Delivery Oxygen Flow Rate Fraction of Inspired Oxygen 03/09/25 13:23 03/09/25 13:26 03/09/25 13:28 Temperature Pulse Rate 69 72 Respiratory Rate 18 16 Blood Pressure Pulse Oximetry 96 Oxygen Delivery Room Air Oxygen Flow Rate Fraction of Inspired Oxygen 03/09/25 14:00 03/09/25 16:15 Temperature 97.5 F L Pulse Rate 76 67 Respiratory Rate 22 H Blood Pressure 129/51 L Pulse Oximetry 92 Oxygen Delivery Oxygen Flow Rate Fraction of Inspired Oxygen Intake/Output Intake/Output: Intake & Output 03/06/25 03/07/25 03/08/25 03/09/25 23:59 23:59 23:59 23:59 Intake Total 845 919 8852 1683.8 Output Total 625 120 742 4615 Balance 648 37 8043 433.8 Meds/Results Medications: Active Medications Generic Name Dose Route Start Last Admin Trade Name Freq PRN Reason Stop Dose Admin Acetaminophen 650 mg 03/05/25 23:48 03/07/25 19:48 Acetaminophen 325 Mg Tablet PO 650 mg Q4H PRN Administration Mild Pain (1-3) or Fever Apixaban 5 mg 03/07/25 21:00 03/09/25 08:55 Apixaban 5 Mg Tablet PO 5 mg Q12HR VAIBHAV Administration Diclofenac Sodium 1 applic 03/07/25 21:00 03/09/25 08:57 Diclofenac Sodium 1% 100 Gm Gel (*Bkc) TOPICAL Not Given Q12HR VAIBHAV Diltiazem HCl 30 mg 03/07/25 14:00 03/09/25 14:14 Diltiazem Hcl 30 Mg Tablet PO 30 mg Q8HR VAIBHAV Administration Diphenhydramine HCl 25 mg 03/07/25 08:21 03/08/25 21:10 Diphenhydramine Hcl Inj 50 Mg/Ml Vial IV PUSH 25 mg Q6HR PRN Administration Itching Fluticasone Propionate 2 spray 03/06/25 09:00 03/09/25 08:56 Fluticasone Propionate 0.05% Na Spr 16 Gm Btl (*Bkc) NASAL 2 spray DAILY VAIBHAV Administration Furosemide 40 mg 03/06/25 09:00 03/09/25 08:54 Furosemide 40 Mg Tablet PO 40 mg DAILY VAIBHAV Administration Hydrocortisone 1 applic 03/07/25 09:55 03/09/25 08:55 Hydrocortisone 1% 30 Gm Cream TOPICAL 1 applic Q12HR VAIBHAV Administration Hydroxyzine HCl 25 mg 03/08/25 00:55 03/09/25 00:06 Hydroxyzine Hcl 25 Mg Tablet PO 25 mg Q8H PRN Administration Itching Levetiracetam 1,000 mg in 100 mls @ 400 mls/hr 03/05/25 23:55 03/09/25 08:53 Keppra Iv IVPB 400 mls/hr Q12HR VAIBHAV Administration Daptomycin 800 mg/ Sodium 50 mls @ 100 mls/hr 03/08/25 13:00 03/09/25 12:24 Chloride IVPB 100 mls/hr DAILY VAIBHAV Administration Sodium Chloride 1,000 mls @ 75 mls/hr 03/07/25 10:00 03/09/25 09:05 Normal Saline Iv IV CONT Not Given .[id number] VAIBHAV Ipratropium [place] 0.5 mg 03/06/25 09:00 03/09/25 13:23 Ipratropium Br 0.02% Inh Soln 0.5 Mg/2.5 Ml Vial INHALATION 0.5 mg TIDRT VAIBHAV Administration Levothyroxine Sodium 25 mcg 03/07/25 06:30 03/09/25 05:33 Levothyroxine Sodium 25 Mcg Tablet PO 25 mcg DAILY@0630 VAIBHAV Administration Lidocaine 2 patch 03/07/25 09:00 03/09/25 08:50 Lidocaine 5% Patch TRANSDERM 2 patch DAILY VAIBHAV Administration Loratadine 10 mg 03/07/25 09:55 03/09/25 08:55 Loratadine 10 Mg Tablet PO 10 mg QAM VAIBHAV Administration Lorazepam 2 mg 03/09/25 11:25 Lorazepam (*Crx) 1 Mg Tablet BY MOUTH Q6H PRN seizures Montelukast Sodium 10 mg 03/06/25 21:00 03/08/25 21:08 Montelukast Sodium 10 Mg Tablet PO 10 mg QHS VAIBHAV Administration Ondansetron HCl 4 mg 03/05/25 23:48 Ondansetron Inj 4 Mg/2 Ml Vial IV PUSH Q4H PRN Nausea Pantoprazole Sodium 40 mg 03/06/25 09:00 03/09/25 08:54 Pantoprazole 40 Mg Tablet PO 40 mg DAILY VAIBHAV Administration Polyethylene Glycol 17 gm 03/07/25 21:00 03/08/25 22:50 Polyethylene Glycol 3350 17 Gm Powd.Pack PO 17 gm HS VAIBHAV Administration Prednisone 40 mg 03/07/25 08:00 03/09/25 08:54 Prednisone 20 Mg Tablet PO 03/12/25 07:59 40 mg DAILY@0800 VAIBHAV Administration Simethicone 80 mg 03/06/25 08:15 Simethicone 80 Mg Tab.Chew PO Q6H PRN Abdominal Discomfort Sodium Chloride 1 applic 03/06/25 09:00 03/09/25 12:25 Sodium Chloride 5% Ophth Oint 3.5 Gm Tube EACH EYE Not Given QID VAIBHAV Sodium Chloride 1 drop 03/09/25 21:00 Sodium Chloride 2% Op Soln 15 Ml Btl EACH EYE Q12HR [facility] Radiology Results: ITS Impressions Chest X-Ray 03/05/25 21:12 IMPRESSION: Left lower lobe infiltrate. Head CT 03/05/25 21:31 Impression: No acute intracranial hemorrhage or suspicious mass effect. No cross-sectional imaging evidence to suggest the presence of intracranial abscess formation, as detailed above. Labs Labs: Laboratory Results - last 24 hr 03/09/25 03:54 WBC 10.0 RBC 2.62 L Hgb 7.1 L Hct 23.5 L MCV 89.7 MCH 27.1 MCHC 30.2 L RDW 16.9 H Plt Count 209 MPV 10.2 Immature Gran % (Auto) 0.8 H Neut % (Auto) 77.6 H Lymph % (Auto) 13.3 L [place] % (Auto) 7.5 Eos % (Auto) 0.7 Baso % (Auto) 0.1 L Lymph # (Auto) 1.33 [place] # (Auto) 0.8 H Eos # (Auto) 0.1 Baso # (Auto) 0.0 Abs Immat Gran (auto) 0.08 H Absolute Neuts (auto) 7.8 H Absolute Nucleated RBC 0.000 Band Neutrophils % 0 Nucleated RBC % 0.0 Platelet Estimate Adequate % Immature Plt Fraction 1.9 Ovalocytes Occasional [place] Cells Occasional Schistocytes None seen Sodium 132 L Potassium 4.2 Chloride 106 Carbon Dioxide 16 L Anion Gap 10 BUN 51 H Creatinine 2.27 H Estim Creat Clear Calc 36 Estimated GFR 28 L Glucose 116 H Calcium 8.0 L Magnesium 1.7 Total Bilirubin 0.6 AST 23 ALT 27 Alkaline Phosphatase 151 H Total Protein 5.9 L Albumin 2.7 L Quality VTE Prophylaxis VTE prophylaxis: pharmacologic ordered (Continue home Eliquis.)
[2025-03-09] MEDS: MONTELUKAST SODIUM 10 MG TABLET PO (21:52)
[2025-03-10] VITALS (22 sets, daily range): BP systolic 127–144; BP diastolic 45–55; PULSE 62–79; RESP 14–22; TEMP 36.3–36.6; O2SAT 95–100
[2025-03-10] MEDS: SODIUM CHLORIDE 0.9% IV 1,000 ML 75 ML IV CONT (03:37)
[2025-03-10 05:02] LABS: Hematocrit 22.2 % (42.0-52.0); Immature Granulocyte Percent A 1.0 % (0-0.5); Lymphocytes Absolute Auto 1.23 K/mm3 (0.9-3.2); Mean Corpuscular HGB Conc 30.6 g/dl (32-36); Mean Corpuscular Hemoglobin 27.4 pg (26-34); Mean Corpuscular Volume 89.5 fl (80-100); Nucleated Red Blood Cells Absolute Auto 0.000 K/mm3 (0.0-0.012); Nucleated Red Blood Cells Perc 0.0 % (0.0-0.2); Platelet Count Result 193 k/mm3 (150-375); Red Blood Count 2.48 M/mm3 (4.6-6.20); White Blood Count 9.5 K/mm3 (4.5-10.0)
[2025-03-10 05:07] LABS: Hemoglobin 6.8 g/dL (14.0-18.0)
[2025-03-10 05:14] LABS: Alanine Aminotransferase 38 U/L (6-50); Albumin Level 2.6 g/dL (3.5-5.1); Alkaline Phosphatase 150 U/L (38-126); Anion Gap 7 mmol/L (4-12); Aspartate Amino Transferase 31 U/L (17-59); Bilirubin,Total 0.4 mg/dL (0.2-1.3); Blood Urea Nitrogen 60 mg/dL (9-20); Calcium 7.8 mg/dL (8.4-10.2); Carbon Dioxide 18 mmol/L (22-30); Chloride 107 mmol/L (98-107); Estimated CRCL calculation 35 ml/min; Estimated Glomerular Filt Rate 27; Glucose 108 mg/dL (65-110); Magnesium 1.4 mg/dL (1.6-2.3); Potassium 5.0 mmol/L (3.4-5.0); Sodium 132 mmol/L (137-145); Total Protein 5.6 g/dL (6.3-8.2)
[2025-03-10] MEDS: LEVOTHYROXINE SODIUM 25 MCG TABLET PO (05:38)
[2025-03-10] MEDS: IPRATROPIUM BR 0.02% INH SOLN 0.5 MG/2.5 ML VIAL INHALATION ×3 (08:00→20:58)
[2025-03-10] MEDS: SODIUM CHLORIDE 0.9% IV 250 ML 30 ML IV CONT (08:33)
[2025-03-10] MEDS: LIDOCAINE 5% PATCH 2 PATCH TRANSDERM (08:40)
[2025-03-10] MEDS: APIXABAN 5 MG TABLET PO (08:40)
[2025-03-10] MEDS: FUROSEMIDE 40 MG TABLET PO (08:40)
[2025-03-10] MEDS: PANTOPRAZOLE 40 MG TABLET PO (08:40)
[2025-03-10] MEDS: LORATADINE 10 MG TABLET PO (08:40)
[2025-03-10] MEDS: DICLOFENAC SODIUM 1% 100 GM GEL (*BKC) 1 APPLIC TOPICAL (08:42)
[2025-03-10] MEDS: FLUTICASONE PROPIONATE 0.05% NA SPR 16 GM BTL (*BKC) 2 SPRAY NASAL (08:42)
[2025-03-10] MEDS: HYDROCORTISONE 1% 30 GM CREAM 1 APPLIC TOPICAL ×2 (08:42→21:16)
[2025-03-10] MEDS: SODIUM CHLORIDE 2% OP SOLN 15 ML BTL 1 DROP EACH EYE ×2 (08:44→21:16)
[2025-03-10] MEDS: DAPTOMYCIN IVPB (09:10)
[2025-03-10] MEDS: SODIUM CHLORIDE 0.9% IVPB (09:10)
[2025-03-10] MEDS: levETIRAcetam 1000MG/NACL100ML 1,000 MG/100 ML BAG 400 MG IVPB (09:53)
--- NOTE | 2025-03-10 10:48 | WPDINFPN2 ---
Progress Note: A&P Assessment and Plan (1) Bacteremia: Code(s): R78.81 - Bacteremia Status: Acute (2) Coagulase negative Staphylococcus bacteremia: Code(s): R78.81 - Bacteremia; B95.7 - Other staphylococcus as the cause of diseases classified elsewhere Status: Acute (3) Enterococcal bacteremia: Code(s): R78.81 - Bacteremia; B95.2 - Enterococcus as the cause of diseases classified elsewhere Status: Acute (4) Rash: Code(s): R21 - Rash and other nonspecific skin eruption Status: Acute (5) Altered mental status: Qualifiers: Altered mental status type: delirium Qualified Code(s): R41.0 - Disorientation, unspecified Code(s): R41.82 - Altered mental status, unspecified Status: Acute (6) Seizure: Code(s): R56.9 - Unspecified convulsions Status: Acute (7) H/O colectomy: Code(s): Z90.49 - Acquired absence of other specified parts of digestive tract Status: Acute Plan # MR-Staph capitis positive blood cultures. -- 4/4 bottles but antibiogram shows resistance to Bactrim with one set, and susceptibility with the second, suggesting 2 distinct strains. Two distinct strains in a patient without lines or evidence of phlebitis at admission likely suggest blood culture contamination. -- recently with isolated Enterococcus faecalis (VRE ) bacteremia but currently without recurrence. # Possible sepsis associated with bacteremia, if with true coagulase-negative Staphylococcus bacteremia. # Recent isolated Enterococcus faecalis (VRE) bacteremia # Altered mental status secondary to sepsis versus recurrent seizures versus postictal state. # Erythroderma, resolved. With eosinophilia consider allergic reaction. May be secondary to recent Unasyn. Linezolid also possible but less likely. Keppra is a new medication and might be associated but erythroderma resolving while still receiving Keppra. # Left lower lobe infiltrate seen now and during last hospitalization without radiographic worsening and without significant symptoms of pneumonia. Doubt active pneumonia at this time. Plan: -- with absence of line or evidence of phlebitis his admission blood cultures may represent contamination. -- 02/20/2025 2D echocardiogram without vegetation as workup for enterococcal bacteremia. For current possible Staph capitis bacteremia recommend repeating 2D echocardiogram. If 2D echocardiogram unremarkable and repeat blood cultures negative would consider blood culture findings as contamination And may discontinue daptomycin. -- for now continue daptomycin 8 milligrams/kilogram IV Q 24 hours. Although linezolid less likely to be associated with seizures or adverse drug eruption will hold on further dosing of this agent at this time. -- avoid penicillins given the possibility of Unasyn-associated dermatitis. -- with presentation erythroderma, dermatitis, and eosinophilia would also avoid antibiotics unless absolutely required. Do not believe current chest x-ray findings represent a new or ongoing process and recommend discontinuing levofloxacin and metronidazole. -- continue steroids for drug eruption but monitor for erythroderma improvement or worsening while on continued Keppra. This Consult was performed via telemedicine while I was in [place] and the patient was in [place], [place], via audio and visual HIPAA protected interface and with patient's /POA consent. Subjective Date/time seen: 03/10/25 10:48 Interval history: 03/09/2025: Afebrile and vital signs stable. Erythema has resolved. No further evidence of left arm cellulitis and fluid weeping has resolved. 03/10/2025: Afebrile and vital signs stable. More awake, alert, and interactive. No leukocytosis. 03/05 blood cultures Positive for 4 bottles methicillin-resistant Staphylococcus capitis. 03/09 blood cultures pending. Blood cultures 03/05: Positive for 4 bottles MR-Staph capitis. Blood cultures 03/09: Pending. Urine culture 03/05: Less than 10,000 colonies of mixed organism growth. Review of Systems Review of Systems: Resolution of pruritus. He denies significant cough, shortness of breath, or chest discomfort. All systems reviewed & are unremarkable except as noted in HPI and below Exam Narrative: Sitting in bed and appears comfortable. Awake, alert, and able to answer questions. much more interactive. Diffuse erythroderma present on admission now resolved. Generalized anasarca. Left arm fluid weeping resolved. Normal respiratory effort. Without significant abdominal distention. Objective Data Vital Signs Vital Signs: Vital Signs - 24 hr 03/09/25 12:00 03/09/25 13:23 03/09/25 13:26 Temperature Pulse Rate 75 69 Respiratory Rate 18 Blood Pressure Pulse Oximetry 96 Oxygen Delivery Room Air Oxygen Flow Rate Fraction of Inspired Oxygen 03/09/25 13:28 03/09/25 14:00 03/09/25 16:15 Temperature 97.5 F L Pulse Rate 72 76 67 Respiratory Rate 16 22 H Blood Pressure 129/51 L Pulse Oximetry 92 Oxygen Delivery Oxygen Flow Rate Fraction of Inspired Oxygen 03/09/25 20:00 03/09/25 21:35 03/09/25 21:39 Temperature Pulse Rate 71 74 74 Respiratory Rate 16 16 16 Blood Pressure Pulse Oximetry 99 97 Oxygen Delivery High Flow Nasal Cannula High Flow Nasal Cannula Oxygen Flow Rate 1 2 Fraction of Inspired Oxygen 28 03/09/25 21:43 03/09/25 21:55 03/09/25 22:00 Temperature 98.1 F Pulse Rate 75 71 73 Respiratory Rate 16 16 Blood Pressure 119/48 L Pulse Oximetry 99 Oxygen Delivery Oxygen Flow Rate Fraction of Inspired Oxygen 03/10/25 00:00 03/10/25 04:00 03/10/25 06:39 Temperature 97.7 F Pulse Rate 70 64 65 Respiratory Rate 14 Blood Pressure 127/46 L Pulse Oximetry 100 Oxygen Delivery Oxygen Flow Rate Fraction of Inspired Oxygen 03/10/25 08:02 03/10/25 08:04 03/10/25 08:09 Temperature Pulse Rate 62 62 Respiratory Rate 17 17 Blood Pressure Pulse Oximetry 97 Oxygen Delivery High Flow Nasal Cannula Oxygen Flow Rate 1 Fraction of Inspired Oxygen 03/10/25 08:34 03/10/25 08:53 03/10/25 09:53 Temperature 97.4 F L 97.3 F L 97.3 F L Pulse Rate 75 76 75 Respiratory Rate 22 H 20 20 Blood Pressure 144/52 H 138/52 L 137/53 L Pulse Oximetry 97 99 97 Oxygen Delivery Oxygen Flow Rate Fraction of Inspired Oxygen Intake/Output Intake/Output: Intake & Output 03/07/25 03/08/25 03/09/25 03/10/25 23:59 23:59 23:59 23:59 Intake Total 600 3980 3173.8 963.8 Output Total 672 566 3709 1200 Balance 75 3080 1373.8 -236.2 Meds/Results Medications: Active Medications Generic Name Dose Route Start Last Admin Trade Name Freq PRN Reason Stop Dose Admin Acetaminophen 650 mg 03/05/25 23:48 03/07/25 19:48 Acetaminophen 325 Mg Tablet PO 650 mg Q4H PRN Administration Mild Pain (1-3) or Fever Apixaban 5 mg 03/07/25 21:00 03/10/25 08:40 Apixaban 5 Mg Tablet PO 5 mg Q12HR VAIBHAV Administration Diclofenac Sodium 1 applic 03/07/25 21:00 03/10/25 08:42 Diclofenac Sodium 1% 100 Gm Gel (*Bkc) TOPICAL 1 applic Q12HR VAIBHAV Administration Diltiazem HCl 30 mg 03/07/25 14:00 03/10/25 05:38 Diltiazem Hcl 30 Mg Tablet PO 30 mg Q8HR VAIBHAV Administration Diphenhydramine HCl 25 mg 03/07/25 08:21 03/08/25 21:10 Diphenhydramine Hcl Inj 50 Mg/Ml Vial IV PUSH 25 mg Q6HR PRN Administration Itching Fluticasone Propionate 2 spray 03/06/25 09:00 03/10/25 08:42 Fluticasone Propionate 0.05% Na Spr 16 Gm Btl (*Bkc) NASAL 2 spray DAILY VAIBHAV Administration Furosemide 40 mg 03/06/25 09:00 03/10/25 08:40 Furosemide 40 Mg Tablet PO 40 mg DAILY VAIBHAV Administration Hydrocortisone 1 applic 03/07/25 09:55 03/10/25 08:42 Hydrocortisone 1% 30 Gm Cream TOPICAL 1 applic Q12HR VAIBHAV Administration Hydroxyzine HCl 25 mg 03/08/25 00:55 03/09/25 21:52 Hydroxyzine Hcl 25 Mg Tablet PO 25 mg Q8H PRN Administration Itching Levetiracetam 1,000 mg in 100 mls @ 400 mls/hr 03/05/25 23:55 03/10/25 09:53 Keppra Iv IVPB 400 mls/hr Q12HR VAIBHAV Administration Daptomycin 800 mg/ Sodium 50 mls @ 100 mls/hr 03/08/25 13:00 03/10/25 09:10 Chloride IVPB 100 mls/hr DAILY VAIBHAV Administration Sodium Chloride 1,000 mls @ 75 mls/hr 03/07/25 10:00 03/10/25 08:28 Normal Saline Iv IV CONT 0 mls/hr .[id number] VAIBHAV Infusion Sodium Chloride 250 mls @ 30 mls/hr 03/10/25 05:14 03/10/25 08:33 Normal Saline Iv IV CONT 03/10/25 13:33 30 mls/hr .Q8H20M STA Administration Ipratropium [place] 0.5 mg 03/06/25 09:00 03/10/25 08:00 Ipratropium Br 0.02% Inh Soln 0.5 Mg/2.5 Ml Vial INHALATION 0.5 mg TIDRT [facility] Administration Levothyroxine Sodium 25 mcg 03/07/25 06:30 03/10/25 05:38 Levothyroxine Sodium 25 Mcg Tablet PO 25 mcg DAILY@0630 [facility] Administration Lidocaine 2 patch 03/07/25 09:00 03/10/25 08:40 Lidocaine 5% Patch TRANSDERM 2 patch DAILY [facility] Administration Loratadine 10 mg 03/07/25 09:55 03/10/25 08:40 Loratadine 10 Mg Tablet PO 10 mg QAM [facility] Administration Lorazepam 2 mg 03/09/25 11:25 Lorazepam (*Crx) 1 Mg Tablet BY MOUTH Q6H PRN seizures Montelukast Sodium 10 mg 03/06/25 21:00 03/09/25 21:52 Montelukast Sodium 10 Mg Tablet PO 10 mg QHS [facility] Administration Ondansetron HCl 4 mg 03/05/25 23:48 Ondansetron Inj 4 Mg/2 Ml Vial IV PUSH Q4H PRN Nausea Pantoprazole Sodium 40 mg 03/06/25 09:00 03/10/25 08:40 Pantoprazole 40 Mg Tablet PO 40 mg DAILY [facility] Administration Polyethylene Glycol 17 gm 03/07/25 21:00 03/09/25 21:53 Polyethylene Glycol 3350 17 Gm Powd.Pack PO Not Given HS [facility] Prednisone 40 mg 03/07/25 08:00 03/10/25 08:39 Prednisone 20 Mg Tablet PO 03/12/25 07:59 40 mg DAILY@0800 [facility] Administration Simethicone 80 mg 03/06/25 08:15 Simethicone 80 Mg Tab.Chew PO Q6H PRN Abdominal Discomfort Sodium Chloride 1 applic 03/06/25 09:00 03/10/25 08:44 Sodium Chloride 5% Ophth Oint 3.5 Gm Tube EACH EYE Not Given QID [facility] Sodium Chloride 1 drop 03/09/25 21:00 03/10/25 08:44 Sodium Chloride 2% Op Soln 15 Ml Btl EACH EYE 1 drop Q12HR [facility]IBHAV Administration Radiology Results: ITS Impressions Chest X-Ray 03/05/25 21:12 IMPRESSION: Left lower lobe infiltrate. Head CT 03/05/25 21:31 Impression: No acute intracranial hemorrhage or suspicious mass effect. No cross-sectional imaging evidence to suggest the presence of intracranial abscess formation, as detailed above. Labs Labs: Laboratory Results - last 24 hr 03/10/25 03/10/25 04:45 06:01 WBC 9.5 RBC 2.48 L Hgb 6.8 L* Hct 22.2 L MCV 89.5 MCH 27.4 MCHC 30.6 L RDW 16.5 H Plt Count 193 MPV 9.6 Immature Gran % (Auto) 1.0 H Neut % (Auto) 76.9 H Lymph % (Auto) 13.0 L [place] % (Auto) 8.4 Eos % (Auto) 0.6 Baso % (Auto) 0.1 L Lymph # (Auto) 1.23 [place] # (Auto) 0.8 H Eos # (Auto) 0.1 Baso # (Auto) 0.0 Abs Immat Gran (auto) 0.09 H Absolute Neuts (auto) 7.3 H Absolute Nucleated RBC 0.000 Nucleated RBC % 0.0 Sodium 132 L Potassium 5.0 Chloride 107 Carbon Dioxide 18 L Anion Gap 7 BUN 60 H Creatinine 2.35 H Estim Creat Clear Calc 35 Estimated GFR 27 L Glucose 108 Calcium 7.8 L Magnesium 1.4 L Total Bilirubin 0.4 AST 31 ALT 38 Alkaline Phosphatase 150 H Total Protein 5.6 L Albumin 2.6 L Blood Type A Negative Antibody Screen Negative Crossmatch See Detail
[2025-03-10] MEDS: SODIUM CHLORIDE 5% OPHTH OINT 3.5 GM TUBE 1 APPLIC EACH EYE (12:08)
--- NOTE | 2025-03-10 12:37 | P.PNIM_ITS ---
Progress Note: A&P Assessment and Plan (1) Witnessed seizure-like activity: Code(s): R56.9 - Unspecified convulsions Status: Acute (2) Aspiration pneumonia of left lower lobe: Qualifiers: Aspiration pneumonia type: unspecified Qualified Code(s): J69.0 - Pneumonitis due to inhalation of food and vomit Code(s): J69.0 - Pneumonitis due to inhalation of food and vomit Status: Acute (3) Abnormal finding on urinalysis: Code(s): R82.90 - Unspecified abnormal findings in urine Status: Acute Plan Seizure, unwitnessed Keppra 1500mg bid Seizure precaution Consider CT/MRI EEG as per Neurology Neurology following Accu-Cheks Ativan 2 mg IV p.r.n. q.6 hours for seizures Aspiration pneumonia ruled out ID evaluated and noted no lung finding on chest xray Levaquin and Flagyl discontinued per ID monitor Reviewed chest X-Ray (3) Abnormal finding on urinalysis: discontinued Unasyn due to Allergy Pending urine culture Can deescalate antibiotic once culture results (4) Allergic reaction to Unasyn Itching and redness markedly improved today with dicontinuing Unasyn yesterday Continue Levaquin and Flagyl, Vanc added Continue Claritin and monitor, Hold Prednisone and monitor ID following Recent VRE bacteremia Continue Daptomycin Monitor repeat blood culture, if positive will need JAIMIE ID following Anemia Hb 6.8, receiving 1 unit pRBC FOBT pending, Eliquis on hold GI consulted [facility] Cr worsening, 2.35 today Nephrology consulted DVT prophylaxis on SCDs, awaiting GI eval Subjective Date/time seen: 03/10/25 12:37 Interval history: Comfortable at bedside Hb 6.8, receiving 1 unit Eliquis on Hold nad FOBT pending GI consulted Review of Systems Review of Systems: Unobtainable due to the patient's mental status Exam Narrative: Weight 131.5 kg BMI 38.2 Const: Other: Chronically ill-appearing but no acute distress, somnolent, chronically debilitated, morbidly obese, generalized anasarca, lying on the ER stretcher with head of bed at 20? HENMT: Other: Mucous membranes are dry, crowded posterior oropharynx Eyes: Other: Pupils are equal and reactive but patient does not track movement around the room Neck: Other: Large neck circumference, no JVD, thyroid goiter palpable larger on the left than the right (confirmed by prior CT scan 03/01/2025) Resp: Other: Sonorous respirations, periods of apnea, decreased breath sounds bilaterally, no increased work of breathing Cardio: Other: Regular rate, regular rhythm, no JVD GI: Other: Obese, distended, soft, positive bowel sounds, ostomy in the right abdomen with good output with the bag filled with gas : Other: Pereira catheter in place with drainage of clear urine Skin: Other: Erythema increased warmth to the medial left upper arm, some mild erythema to the right forearm but no increased warmth, anasarca changes to all extremities but bilateral upper extremities worse than lower extremities chronic, dried flaking skin bilateral feet, no foot wounds, thick yellow toenails Neuro: Other: Lethargic, difficult to arouse, does not follow commands but is moving bilateral upper extremities equally Extrem: Other: Pitting edema bilateral upper extremities, patient has well-healed scar on the left foot consistent with history of prior left great toe amputation, waffle boots in place bilaterally Psych: Other: Somnolent, difficult to arouse otherwise unable to assess due to patient condition Objective Data Vital Signs Vital Signs: Vital Signs - 24 hr 03/09/25 13:23 03/09/25 13:26 03/09/25 13:28 Temperature Pulse Rate 69 72 Respiratory Rate 18 16 Blood Pressure Pulse Oximetry 96 Oxygen Delivery Room Air Oxygen Flow Rate Fraction of Inspired Oxygen 03/09/25 14:00 03/09/25 16:15 03/09/25 20:00 Temperature 97.5 F L Pulse Rate 76 67 71 Respiratory Rate 22 H 16 Blood Pressure 129/51 L Pulse Oximetry 92 99 Oxygen Delivery High Flow Nasal Cannula Oxygen Flow Rate 1 Fraction of Inspired Oxygen 28 03/09/25 21:35 03/09/25 21:39 03/09/25 21:43 Temperature Pulse Rate 74 74 75 Respiratory Rate 16 16 16 Blood Pressure Pulse Oximetry 97 Oxygen Delivery High Flow Nasal Cannula Oxygen Flow Rate 2 Fraction of Inspired Oxygen 03/09/25 21:55 03/09/25 22:00 03/10/25 00:00 Temperature 98.1 F Pulse Rate 71 73 70 Respiratory Rate 16 Blood Pressure 119/48 L Pulse Oximetry 99 Oxygen Delivery Oxygen Flow Rate Fraction of Inspired Oxygen 03/10/25 04:00 03/10/25 06:39 03/10/25 08:02 Temperature 97.7 F Pulse Rate 64 65 62 Respiratory Rate 14 17 Blood Pressure 127/46 L Pulse Oximetry 100 Oxygen Delivery Oxygen Flow Rate Fraction of Inspired Oxygen 03/10/25 08:04 03/10/25 08:09 03/10/25 08:34 Temperature 97.4 F L Pulse Rate 62 75 Respiratory Rate 17 22 H Blood Pressure 144/52 H Pulse Oximetry 97 97 Oxygen Delivery High Flow Nasal Cannula Oxygen Flow Rate 1 Fraction of Inspired Oxygen 03/10/25 08:53 03/10/25 09:53 03/10/25 10:53 Temperature 97.3 F L 97.3 F L 97.4 F L Pulse Rate 76 75 70 Respiratory Rate 20 20 20 Blood Pressure 138/52 L 137/53 L 134/55 L Pulse Oximetry 99 97 98 Oxygen Delivery Oxygen Flow Rate Fraction of Inspired Oxygen 03/10/25 11:54 Temperature 97.3 F L Pulse Rate 75 Respiratory Rate 20 Blood Pressure 131/54 L Pulse Oximetry 97 Oxygen Delivery Oxygen Flow Rate Fraction of Inspired Oxygen Intake/Output Intake/Output: Intake & Output 03/07/25 03/08/25 03/09/25 03/10/25 23:59 23:59 23:59 23:59 Intake Total 600 3980 3173.8 1313.8 Output Total 556 545 6697 1200 Balance 75 3080 1373.8 113.8 Meds/Results Medications: Active Medications Generic Name Dose Route Start Last Admin Trade Name Freq PRN Reason Stop Dose Admin Acetaminophen 650 mg 03/05/25 23:48 03/07/25 19:48 Acetaminophen 325 Mg Tablet PO 650 mg Q4H PRN Administration Mild Pain (1-3) or Fever Apixaban 5 mg 03/07/25 21:00 03/10/25 08:40 Apixaban 5 Mg Tablet PO 5 mg Q12HR VAIBHAV Administration Diclofenac Sodium 1 applic 03/07/25 21:00 03/10/25 08:42 Diclofenac Sodium 1% 100 Gm Gel (*Bkc) TOPICAL 1 applic Q12HR [facility]IBHAV Administration Diltiazem HCl 30 mg 03/07/25 14:00 03/10/25 05:38 Diltiazem Hcl 30 Mg Tablet PO 30 mg Q8HR [facility]IBHAV Administration Diphenhydramine HCl 25 mg 03/07/25 08:21 03/08/25 21:10 Diphenhydramine Hcl Inj 50 Mg/Ml Vial IV PUSH 25 mg Q6HR PRN Administration Itching Fluticasone Propionate 2 spray 03/06/25 09:00 03/10/25 08:42 Fluticasone Propionate 0.05% Na Spr 16 Gm Btl (*Bkc) NASAL 2 spray DAILY [facility]IBHAV Administration Furosemide 40 mg 03/06/25 09:00 03/10/25 08:40 Furosemide 40 Mg Tablet PO 40 mg DAILY [facility]IB[facility]AV Administration Hydrocortisone 1 applic 03/07/25 09:55 03/10/25 08:42 Hydrocortisone 1% 30 Gm Cream TOPICAL 1 applic Q12HR [facility]IBHAV Administration Hydroxyzine HCl 25 mg 03/08/25 00:55 03/09/25 21:52 Hydroxyzine Hcl 25 Mg Tablet PO 25 mg Q8H PRN Administration Itching Levetiracetam 1,000 mg in 100 mls @ 400 mls/hr 03/05/25 23:55 03/10/25 09:53 Keppra Iv IVPB 400 mls/hr Q12HR VAIBHAV Administration Daptomycin 800 mg/ Sodium 50 mls @ 100 mls/hr 03/08/25 13:00 03/10/25 09:10 Chloride IVPB 100 mls/hr DAILY VAIBHAV Administration Sodium Chloride 1,000 mls @ 75 mls/hr 03/07/25 10:00 03/10/25 08:28 Normal Saline Iv IV CONT 0 mls/hr .[id number] VAIBHAV Infusion Sodium Chloride 250 mls @ 30 mls/hr 03/10/25 05:14 03/10/25 08:33 Normal Saline Iv IV CONT 03/10/25 13:33 30 mls/hr .Q8H20M STA Administration Ipratropium [place] 0.5 mg 03/06/25 09:00 03/10/25 08:00 Ipratropium Br 0.02% Inh Soln 0.5 Mg/2.5 Ml Vial INHALATION 0.5 mg TIDRT [facility]IBHAV Administration Levothyroxine Sodium 25 mcg 03/07/25 06:30 03/10/25 05:38 Levothyroxine Sodium 25 Mcg Tablet PO 25 mcg DAILY@0630 [facility]IB[facility] Administration Lidocaine 2 patch 03/07/25 09:00 03/10/25 08:40 Lidocaine 5% Patch TRANSDERM 2 patch DAILY [facility]IB[facility]AV Administration Loratadine 10 mg 03/07/25 09:55 03/10/25 08:40 Loratadine 10 Mg Tablet PO 10 mg QAM [facility]IBHAV Administration Lorazepam 2 mg 03/09/25 11:25 Lorazepam (*Crx) 1 Mg Tablet BY MOUTH Q6H PRN seizures Montelukast Sodium 10 mg 03/06/25 21:00 03/09/25 21:52 Montelukast Sodium 10 Mg Tablet PO 10 mg QHS VAIBHAV Administration Ondansetron HCl 4 mg 03/05/25 23:48 Ondansetron Inj 4 Mg/2 Ml Vial IV PUSH Q4H PRN Nausea Pantoprazole Sodium 40 mg 03/06/25 09:00 03/10/25 08:40 Pantoprazole 40 Mg Tablet PO 40 mg DAILY VAIBHAV Administration Polyethylene Glycol 17 gm 03/07/25 21:00 03/09/25 21:53 Polyethylene Glycol 3350 17 Gm Powd.Pack PO Not Given HS VAIBHAV Prednisone 40 mg 03/07/25 08:00 03/10/25 08:39 Prednisone 20 Mg Tablet PO 03/12/25 07:59 40 mg DAILY@0800 VAIBHAV Administration Simethicone 80 mg 03/06/25 08:15 Simethicone 80 Mg Tab.Chew PO Q6H PRN Abdominal Discomfort Sodium Chloride 1 applic 03/06/25 09:00 03/10/25 12:08 Sodium Chloride 5% Ophth Oint 3.5 Gm Tube EACH EYE 1 applic QID VAIBHAV Administration Sodium Chloride 1 drop 03/09/25 21:00 03/10/25 08:44 Sodium Chloride 2% Op Soln 15 Ml Btl EACH EYE 1 drop Q12HR VAIBHAV Administration Radiology Results: ITS Impressions Chest X-Ray 03/05/25 21:12 IMPRESSION: Left lower lobe infiltrate. Head CT 03/05/25 21:31 Impression: No acute intracranial hemorrhage or suspicious mass effect. No cross-sectional imaging evidence to suggest the presence of intracranial abscess formation, as detailed above. Labs Labs: Laboratory Results - last 24 hr 03/10/25 03/10/25 04:45 06:01 WBC 9.5 RBC 2.48 L Hgb 6.8 L* Hct 22.2 L MCV 89.5 MCH 27.4 MCHC 30.6 L RDW 16.5 H Plt Count 193 MPV 9.6 Immature Gran % (Auto) 1.0 H Neut % (Auto) 76.9 H Lymph % (Auto) 13.0 L [place] % (Auto) 8.4 Eos % (Auto) 0.6 Baso % (Auto) 0.1 L Lymph # (Auto) 1.23 [place] # (Auto) 0.8 H Eos # (Auto) 0.1 Baso # (Auto) 0.0 Abs Immat Gran (auto) 0.09 H Absolute Neuts (auto) 7.3 H Absolute Nucleated RBC 0.000 Nucleated RBC % 0.0 Sodium 132 L Potassium 5.0 Chloride 107 Carbon Dioxide 18 L Anion Gap 7 BUN 60 H Creatinine 2.35 H Estim Creat Clear Calc 35 Estimated GFR 27 L Glucose 108 Calcium 7.8 L Magnesium 1.4 L Total Bilirubin 0.4 AST 31 ALT 38 Alkaline Phosphatase 150 H Total Protein 5.6 L Albumin 2.6 L Blood Type A Negative Antibody Screen Negative Crossmatch See Detail Quality VTE Prophylaxis VTE prophylaxis: pharmacologic ordered (Continue home Eliquis.)
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
[2025-03-10 14:26] LABS: IFOB Positive Control Positive; Immunochemical Fecal Occult Bl Negative (N)
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
[2025-03-10 17:58] LABS: Total Protein Urine Random 18 mg/dL; Urea Random Urine 351 MG/DL
[2025-03-10 18:12] LABS: Total Protein Urine Random 17 mg/dL; Ur Ttl Prot Creatinine Ratio 0.59 mg/mg (0-0.20)
[2025-03-10 20:05] LABS: Urine Eos QC 2nd Tech Confirmed
[2025-03-10] MEDS: MONTELUKAST SODIUM 10 MG TABLET PO (21:16)
[2025-03-11] VITALS (18 sets, daily range): BP systolic 127–152; BP diastolic 50–65; PULSE 65–84; RESP 14–16; TEMP 36.3–36.5; O2SAT 96–100
--- NOTE | 2025-03-11 | ECHO_ITS ---
Patient Info Name: Bob Simmons Age: 74 years : 1950 Gender: Male Ht: 73 in Wt: 308 lbs BSA: 2.74 m2 HR: 74 bpm BP: 127 / 59 mmHg Technical Quality: Good Exam Date: 03/11/2025 9:53 AM Patient Status: I Admit Date: 03/05/2025 Exam Type: CA echo doppler color flow Complete two-dimensional, color flow and Doppler transthoracic echocardiogram is performed. Staff Referring Physician: Tiara López [employer] Associate: Jessica Ruvalcaba Attending Provider: Symone Lee DO Summary 1. Complete two-dimensional, color flow and Doppler transthoracic echocardiogram is performed. 2. Left ventricular systolic function is normal, estimated at 60-65. 3. Left atrial chamber dimension is mildly enlarged. 4. There is mild aortic valve calcification. 5. There is trace mitral valve regurgitation. 6. There is trace tricuspid valve regurgitation. Left Ventricle Left ventricular chamber dimension is normal. Left ventricular systolic function is normal, estimated at 60-65. There is no increased left ventricular wall thickness. Left ventricular septal wall motion is normal. The left ventricular diastolic function is abnormal. Right Ventricle Right ventricular chamber dimension is normal. Right ventricular systolic function is normal. Left Atria Left atrial chamber dimension is mildly enlarged. Right Atria Right atrial chamber dimension is normal. Aortic Valve The aortic valve is trileaflet. There is no aortic valve sclerosis. There is no aortic valve stenosis. There is no aortic valve regurgitation. There is mild aortic valve calcification. Pulmonic Valve The pulmonic valve is normal. There is no pulmonic valve stenosis. There is no pulmonic regurgitation. Mitral Valve The mitral valve has normal leaflets. There is no mitral valve stenosis. There is trace mitral valve regurgitation. Tricuspid Valve The tricuspid valve leaflets are normal. There is no significant tricuspid valve stenosis. There is trace tricuspid valve regurgitation. Pericardium/Pleural The pericardium appears normal. There is trivial pericardial effusion. Inferior Vena Cava Normal inferior vena cava with >50% collapse upon inspiration consistent with normal right atrial pressure, 5 mmHg. Aorta The aortic root size at the sinus of Valsalva is normal. The prox ascending aorta size is normal. Left Ventricular Outflow Tract Name Value Normal LVOT 2D LVOT Diameter 2.5 cm LVOT Doppler LVOT Peak Velocity 120 cm/s LVOT Peak Gradient 6 mmHg LVOT Mean Gradient 3 mmHg LVOT VTI 26 cm LVOT Stroke Volume 123 ml LVOT CO 9.1 l/min LVOT CI 3.3 l/min/m2 Pulmonic Valve Name Value Normal RVOT Doppler RVOT Peak Velocity 98 cm/s RVOT Peak Gradient 4 mmHg PV Doppler PV Peak Velocity 134 cm/s PV Peak Gradient 7 mmHg Mitral Valve Name Value Normal MV Diastolic Function MV E Peak Velocity 92 cm/s MV A Peak Velocity 89 cm/s MV E/A 1.0 MV Decel Time (PW) 236 ms MV Annular TDI MV E/e' (Septal) 11.3 MV E/e' (Lateral) 8.8 MV E/e' (Average) 10.0 Tricuspid Valve Name Value Normal Estimated PAP/RSVP RA Pressure 5 mmHg <=5 Aortic Valve Name Value Normal AV Doppler AV Peak Velocity 137 cm/s AV Peak Gradient 8 mmHg AV Area (Cont Eq Zackary) 4.2 cm2 AV DI (Zackary) 0.87 AV Regurgitation 2D LVOT Area 4.7 cm2 Ventricles Name Value Normal LV Dimensions 2D/MM IVS Diastolic Thickness (2D) 1.2 cm 0.6-1.0 LVID Diastole (2D) 5.7 cm 4.2-5.8 LVIW Diastolic Thickness (2D) 1.5 cm 0.6-1.0 LVID Systole (2D) 3.8 cm 2.5-4.0 LVOT Diameter 2.5 cm LV Mass (2D Cubed) 334.26 g 88.00-224.00 LV Mass Index (2D Cubed) 122 g/m2 49-115 Relative Wall Thickness (2D) 0.52 <=0.42 LV Fractional Shortening/Ejection Fraction 2D/MM LV Fractional Shortening (2D) 33 % 25-43 LV EF (2D Teichholz) 61 % LV Diastolic Volume (4C MOD) 203 ml LV EF (4C MOD) 63 % LV Diastolic Volume (2C MOD) 160 ml LV EF (2C MOD) 58 % LV Diastolic Volume (BP MOD) 182 ml 62-150 LV Diastolic Volume Index (BP MOD) 67 ml/m2 34-74 LV Systolic Volume (BP MOD) 73 ml 21-61 LV Systolic Volume Index (BP MOD) 26 ml/m2 11-31 LV EF (BP MOD) 60 % 52-72 LV Diastolic Length (4C) 9.6 cm LV Systolic Length (4C) 7.9 cm LV Stroke Volume (4C MOD) 127 ml Atria Name Value Normal LA Dimensions LA Volume (4C A-L) 68 ml LA Volume (BP A-L) 75 ml RA Dimensions RA Systolic Major [place] Length (4C) 6.2 cm 2.1-2.7 RA Area (4C) 23.1 cm2 <=18.0 Report Signatures
[2025-03-11 05:03] LABS: Hematocrit 27.7 % (42.0-52.0); Hemoglobin 8.7 g/dL (14.0-18.0); Immature Granulocyte Percent A 1.6 % (0-0.5); Lymphocytes Absolute Auto 0.96 K/mm3 (0.9-3.2); Mean Corpuscular HGB Conc 31.4 g/dl (32-36); Mean Corpuscular Hemoglobin 28.1 pg (26-34); Mean Corpuscular Volume 89.4 fl (80-100); Nucleated Red Blood Cells Absolute Auto 0.000 K/mm3 (0.0-0.012); Nucleated Red Blood Cells Perc 0.0 % (0.0-0.2); Platelet Count Result 204 k/mm3 (150-375); Red Blood Count 3.10 M/mm3 (4.6-6.20); White Blood Count 12.3 K/mm3 (4.5-10.0)
[2025-03-11 05:16] LABS: Alanine Aminotransferase 48 U/L (6-50); Albumin Level 2.8 g/dL (3.5-5.1); Alkaline Phosphatase 160 U/L (38-126); Anion Gap 8 mmol/L (4-12); Aspartate Amino Transferase 35 U/L (17-59); Bilirubin,Total 0.5 mg/dL (0.2-1.3); Blood Urea Nitrogen 63 mg/dL (9-20); Calcium 8.2 mg/dL (8.4-10.2); Carbon Dioxide 17 mmol/L (22-30); Chloride 109 mmol/L (98-107); Creatine Kinase < 20 U/L (55-170); Estimated CRCL calculation 35 ml/min; Estimated Glomerular Filt Rate 26; Glucose 128 mg/dL (65-110); Magnesium 1.4 mg/dL (1.6-2.3); Potassium 5.8 mmol/L (3.4-5.0); Sodium 134 mmol/L (137-145); Total Protein 6.1 g/dL (6.3-8.2)
[2025-03-11] MEDS: LEVOTHYROXINE SODIUM 25 MCG TABLET PO (05:53)
[2025-03-11] MEDS: IPRATROPIUM BR 0.02% INH SOLN 0.5 MG/2.5 ML VIAL INHALATION ×3 (07:48→20:34)
[2025-03-11] MEDS: LORATADINE 10 MG TABLET PO (08:22)
[2025-03-11] MEDS: PANTOPRAZOLE 40 MG TABLET PO (08:23)
[2025-03-11] MEDS: SODIUM BICARBONATE TAB 650 MG TABLET PO ×2 (08:23→17:43)
[2025-03-11] MEDS: DAPTOMYCIN IVPB (08:28)
[2025-03-11] MEDS: SODIUM CHLORIDE 0.9% IVPB (08:28)
[2025-03-11] MEDS: SODIUM CHLORIDE 2% OP SOLN 15 ML BTL 1 DROP EACH EYE ×2 (08:34→22:02)
[2025-03-11] MEDS: HYDROCORTISONE 1% 30 GM CREAM 1 APPLIC TOPICAL (08:34)
[2025-03-11] MEDS: FLUTICASONE PROPIONATE 0.05% NA SPR 16 GM BTL (*BKC) 2 SPRAY NASAL (08:35)
[2025-03-11] MEDS: LIDOCAINE 5% PATCH 2 PATCH TRANSDERM (08:36)
[2025-03-11] MEDS: FUROSEMIDE INJ 40 MG/4 ML VIAL IV PUSH (08:36)
--- NOTE | 2025-03-11 10:40 | P.PNGI_ITS ---
Progress Note: A&P Assessment and Plan (1) Anemia: Code(s): D64.9 - Anemia, unspecified Status: Acute Plan The patient's hemoglobin has improved from 6.8 to 8.7 after transfusion, and there are no signs of a gastrointestinal bleed. The ileostomy output consists of normal brown, pasty stool without evidence of melena or hematochezia. As discussed previously, the patient's severe anemia is likely attributable to other factors, including fluid overload, hyponatremia, and renal failure, rather than a GI bleed. With these considerations, will sign off for now.. Please contact the service if there is any objective evidence of a GI bleed, particularly changes in the ileostomy output. Subjective Date/time seen: 03/11/25 10:40 Objective Data Vital Signs Vital Signs: Vital Signs - 24 hr 03/10/25 10:53 03/10/25 11:54 03/10/25 12:00 Temperature 97.4 F L 97.3 F L Pulse Rate 70 75 74 Respiratory Rate 20 20 Blood Pressure 134/55 L 131/54 L Pulse Oximetry 98 97 Oxygen Delivery Oxygen Flow Rate Fraction of Inspired Oxygen 03/10/25 13:35 03/10/25 13:48 03/10/25 13:54 Temperature 97.4 F L Pulse Rate 73 79 78 Respiratory Rate 20 17 17 Blood Pressure 128/45 L Pulse Oximetry 97 Oxygen Delivery Oxygen Flow Rate Fraction of Inspired Oxygen 03/10/25 16:02 03/10/25 20:00 03/10/25 20:00 Temperature Pulse Rate 75 68 75 Respiratory Rate 18 Blood Pressure Pulse Oximetry 95 Oxygen Delivery Room Air Oxygen Flow Rate Fraction of Inspired Oxygen 28 03/10/25 20:58 03/10/25 21:00 03/10/25 21:06 Temperature Pulse Rate 62 68 Respiratory Rate 17 18 Blood Pressure Pulse Oximetry 95 Oxygen Delivery Room Air Oxygen Flow Rate Fraction of Inspired Oxygen 03/10/25 22:58 03/11/25 00:00 03/11/25 04:00 Temperature 97.9 F Pulse Rate 73 73 75 Respiratory Rate 16 Blood Pressure 136/54 L Pulse Oximetry 98 Oxygen Delivery Oxygen Flow Rate Fraction of Inspired Oxygen 03/11/25 06:07 03/11/25 07:52 03/11/25 07:52 Temperature 97.7 F Pulse Rate 70 67 67 Respiratory Rate 16 16 16 Blood Pressure 152/65 H Pulse Oximetry 100 98 Oxygen Delivery Nasal Cannula Oxygen Flow Rate 1 Fraction of Inspired Oxygen 03/11/25 07:56 03/11/25 08:10 Temperature Pulse Rate 65 69 Respiratory Rate 16 Blood Pressure 127/59 L Pulse Oximetry 96 Oxygen Delivery Oxygen Flow Rate Fraction of Inspired Oxygen Intake/Output Intake/Output: Intake & Output 03/08/25 03/09/25 03/10/25 03/11/25 23:59 23:59 23:59 23:59 Intake Total 3980 3173.8 2507.0 1070 Output Total 900 1800 1950 2050 Balance 3080 1373.8 557.0 -980 Meds/Results Medications: Active Medications Generic Name Dose Route Start Last Admin Trade Name Freq PRN Reason Stop Dose Admin Acetaminophen 650 mg 03/05/25 23:48 03/07/25 19:48 Acetaminophen 325 Mg Tablet PO 650 mg Q4H PRN Administration Mild Pain (1-3) or Fever Apixaban 5 mg 03/07/25 21:00 03/10/25 08:40 Apixaban 5 Mg Tablet PO 5 mg On Hold: 03/10/25 12:38 Q12HR VAIBHAV Administration Diclofenac Sodium 1 applic 03/07/25 21:00 03/11/25 09:08 Diclofenac Sodium 1% 100 Gm Gel (*Bkc) TOPICAL Not Given Q12HR VAIBHAV Diltiazem HCl 30 mg 03/07/25 14:00 03/11/25 05:53 Diltiazem Hcl 30 Mg Tablet PO 30 mg Q8HR VAIBHAV Administration Diphenhydramine HCl 25 mg 03/07/25 08:21 03/08/25 21:10 Diphenhydramine Hcl Inj 50 Mg/Ml Vial IV PUSH 25 mg Q6HR PRN Administration Itching Fluticasone Propionate 2 spray 03/06/25 09:00 03/11/25 08:35 Fluticasone Propionate 0.05% Na Spr 16 Gm Btl (*Bkc) NASAL 2 spray DAILY VAIBHAV Administration Furosemide 40 mg 03/06/25 09:00 03/10/25 08:40 Furosemide 40 Mg Tablet PO 40 mg On Hold: 03/11/25 07:30 DAILY VAIBHAV Administration Hydrocortisone 1 applic 03/07/25 09:55 03/11/25 08:34 Hydrocortisone 1% 30 Gm Cream TOPICAL 1 applic Q12HR VAIBHAV Administration Hydroxyzine HCl 25 mg 03/08/25 00:55 03/10/25 21:16 Hydroxyzine Hcl 25 Mg Tablet PO 25 mg Q8H PRN Administration Itching Daptomycin 800 mg/ Sodium 50 mls @ 100 mls/hr 03/08/25 13:00 03/11/25 08:28 Chloride IVPB 100 mls/hr DAILY VAIBHAV Administration Ipratropium [place] 0.5 mg 03/06/25 09:00 03/11/25 07:48 Ipratropium Br 0.02% Inh Soln 0.5 Mg/2.5 Ml Vial INHALATION 0.5 mg TIDRT VAIBHAV Administration Levetiracetam 1,000 mg 03/10/25 21:00 03/11/25 08:23 Levetiracetam 500 Mg Tablet PO 1,000 mg Q12HR VAIBHAV Administration Levothyroxine Sodium 25 mcg 03/07/25 06:30 03/11/25 05:53 Levothyroxine Sodium 25 Mcg Tablet PO 25 mcg DAILY@0630 VAIBHAV Administration Lidocaine 2 patch 03/07/25 09:00 03/11/25 08:36 Lidocaine 5% Patch TRANSDERM 2 patch DAILY VAIBHAV Administration Loratadine 10 mg 03/07/25 09:55 03/11/25 08:22 Loratadine 10 Mg Tablet PO 10 mg QAM VAIBHAV Administration Lorazepam 2 mg 03/09/25 11:25 Lorazepam (*Crx) 1 Mg Tablet BY MOUTH Q6H PRN seizures Montelukast Sodium 10 mg 03/06/25 21:00 03/10/25 21:16 Montelukast Sodium 10 Mg Tablet PO 10 mg QHS VAIBHAV Administration Ondansetron HCl 4 mg 03/05/25 23:48 Ondansetron Inj 4 Mg/2 Ml Vial IV PUSH Q4H PRN Nausea Pantoprazole Sodium 40 mg 03/06/25 09:00 03/11/25 08:23 Pantoprazole 40 Mg Tablet PO 40 mg DAILY VAIBHAV Administration Perflutren Lipid Microsphere 0 ml 03/11/25 08:54 Perflutren Lipid Microspheres 1.5 Ml Vial Diluted To 10 Ml Total Volume IV PUSH 03/14/25 08:54 ONCE PRN adequate visualization Protocol Polyethylene Glycol 17 gm 03/07/25 21:00 03/10/25 21:15 Polyethylene Glycol 3350 17 Gm Powd.Pack PO Not Given HS VAIBHAV Prednisone 40 mg 03/07/25 08:00 03/11/25 08:45 Prednisone 20 Mg Tablet PO 03/12/25 07:59 40 mg DAILY@0800 VAIBHAV Administration Simethicone 80 mg 03/06/25 08:15 Simethicone 80 Mg Tab.Chew PO Q6H PRN Abdominal Discomfort Sodium Bicarbonate 650 mg 03/11/25 09:00 03/11/25 08:23 Sodium Bicarbonate Tab 650 Mg Tablet PO 650 mg BID VAIBHAV Administration Sodium Chloride 1 applic 03/06/25 09:00 03/11/25 09:09 Sodium Chloride 5% Ophth Oint 3.5 Gm Tube EACH EYE Not Given QID [facility] Sodium Chloride 1 drop 03/09/25 21:00 03/11/25 08:34 Sodium Chloride 2% Op Soln 15 Ml Btl EACH EYE 1 drop Q12HR VAIBHAV Administration Sodium Zirconium Cyclosilicate 10 gm 03/11/25 10:00 Sodium Zirconium Cyclosilicate 10 Gm Powd.Pack PO 03/11/25 18:01 BID@1000,1800 [facility] Radiology Results: ITS Impressions Head CT 03/05/25 21:31 Impression: No acute intracranial hemorrhage or suspicious mass effect. No cross-sectional imaging evidence to suggest the presence of intracranial abscess formation, as detailed above. Renal Ultrasound 03/10/25 19:19 Impression: 1: Bilateral renal cysts. Stable left renal cyst measuring 7.5 cm with rim calcification, likely benign given the lack of interval change from CT dated 08/07/2022. Chest X-Ray 03/11/25 08:12 Impression: 1: Interval progression of bilateral airspace disease, edema versus pneumonia. Clinically correlate. Labs Labs: Laboratory Results - last 24 hr 03/10/25 03/10/25 03/10/25 06:01 13:41 17:39 WBC RBC Hgb Hct MCV MCH MCHC RDW Plt Count MPV Immature Gran % (Auto) Neut % (Auto) Lymph % (Auto) [place] % (Auto) Eos % (Auto) Baso % (Auto) Lymph # (Auto) [place] # (Auto) Eos # (Auto) Baso # (Auto) Abs Immat Gran (auto) Absolute Neuts (auto) Absolute Nucleated RBC Nucleated RBC % Sodium Potassium Chloride Carbon Dioxide Anion Gap BUN Creatinine Estim Creat Clear Calc Estimated GFR Glucose Calcium Magnesium Total Bilirubin AST ALT Alkaline Phosphatase Total Creatine Kinase Total Protein Albumin Urine Eosinophils None seen U Random Total Protein 17 Ur Random Sodium Ur Random Urea Urine Creatinine Protein/Creat Ratio 2 Stl Occult Blood (IFOB) Negative Crossmatch See Detail 03/10/25 03/10/25 03/11/25 17:39 17:39 04:55 WBC 12.3 H RBC 3.10 L Hgb 8.7 L Hct 27.7 L MCV 89.4 MCH 28.1 MCHC 31.4 L RDW 16.4 H Plt Count 204 MPV 9.5 Immature Gran % (Auto) 1.6 H Neut % (Auto) 84.6 H Lymph % (Auto) 7.8 L [place] % (Auto) 3.3 Eos % (Auto) 2.5 Baso % (Auto) 0.2 Lymph # (Auto) 0.96 [place] # (Auto) 0.4 Eos # (Auto) 0.3 Baso # (Auto) 0.0 Abs Immat Gran (auto) 0.20 H Absolute Neuts (auto) 10.4 H Absolute Nucleated RBC 0.000 Nucleated RBC % 0.0 Sodium 134 L Potassium 5.8 H Chloride 109 H Carbon Dioxide 17 L Anion Gap 8 BUN 63 H Creatinine 2.42 H Estim Creat Clear Calc 35 Estimated GFR 26 L Glucose 128 H Calcium 8.2 L Magnesium 1.4 L Total Bilirubin 0.5 AST 35 ALT 48 Alkaline Phosphatase 160 H Total Creatine Kinase < 20 L Total Protein 6.1 L Albumin 2.8 L Urine Eosinophils U Random Total Protein 18 Ur Random Sodium 54 Ur Random Urea 351 Urine Creatinine 28.8 29.2 Protein/Creat Ratio 2 0.59 H Stl Occult Blood (IFOB) Crossmatch
[2025-03-11] MEDS: SODIUM ZIRCONIUM CYCLOSILICATE 10 GM POWD.PACK PO ×2 (11:15→18:28)
[2025-03-11] MEDS: MAGNESIUM SULF 1 GM/D5W 100 ML 1 GM/100 ML BAG IVPB (11:22)
--- NOTE | 2025-03-11 13:01 | P.PNNP_ITS ---
Progress Note: A&P Assessment and Plan (1) Acute kidney injury: Code(s): N17.9 - Acute kidney failure, unspecified Status: Acute Assessment and Plan: * as noted by trend of labs since admission * however, rise in creatinine noted on last day of previous admission: creatinine went from 1.25 --> 1.71mg/dL (from 03/02 --> 03/03) * creatinine on admission (03/05) was 1.81mg/dL * etiology not entirely clear but several possibilities: * infection (bacteremia +/- pneumonia) * prerenal factors * possibly AIN (suspected allergic reaction to antibiotics with erythroderma + eosinophilia); but already on steroids * contrast exposure (contrast CT on 03/01) * anemia * other(?) * evaluation to date: * renal u/s without obstruction * urine electrolytes non-prerenal * urine eosinophils negative * CPK low * moderate proteinuria * given IV lasix this AM (on 03/11) due to CXR findings * lokelma for elevated K+ * started on sodium bicarbonate for acidosis * follow trend of repeat labs and UOP (2) Stage 3 chronic kidney disease: Code(s): N18.30 - Chronic kidney disease, stage 3 unspecified Status: Chronic Assessment and Plan: * baseline creatinine had been running ~ 1.4 - 1.7mg/dl in the last couple of years * HOWEVER, has been as high as 1.8 - 2.3mg/dl during some of his acute hospitalizations * this causes him to fluctuate between CKD stage 3A and stage 3B * his CKD is secondary to his hypertension, congestive heart failure, vascular disease, previous acute kidney injury/acute renal failure requiring dialysis, and 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) (3) Bacteremia: Code(s): R78.81 - Bacteremia Status: Acute Assessment and Plan: * blood cultures on this admission with Staph capitis * recent hospitalization with VRE bacteremia * Infectious Disease following with recommendations noted * continue antibiotics for now * repeat TTE noted (no evidence of vegetation) (4) Altered mental status: Qualifiers: Altered mental status type: delirium Qualified Code(s): R41.0 - Disorientation, unspecified Code(s): R41.82 - Altered mental status, unspecified Status: Acute Assessment and Plan: * resolved * as noted on presentation * due to infection versus seizure versus other(?) * imaging/testing noted: * CT of head (this admission) negative * MRI of brain (last admission - on 03/01) negative * EEG (03/02) results reviewed * follow trend of mentation (5) Anemia: Code(s): D64.9 - Anemia, unspecified Status: Acute Assessment and Plan: * noted drop in H/H (on 03/10) * possibly partly related to underlying CKD * could be dilutional given recent IVFs * GI recommendations noted * PRBC transfusion per protocol * follow trend of H/H (6) Seizure: Code(s): R56.9 - Unspecified convulsions Status: Acute Assessment and Plan: * possible etiology of #4 * Neurology following with recommendations noted * previous EEG noted * on Keppra * seizure precautions (7) Erythroderma: Code(s): L53.9 - Erythematous condition, unspecified Status: Acute Assessment and Plan: * slow improvement/resolving * s/p prednisone therapy * remains on benadryl, steroid cream, prednisone and claritin * suspcted secondary to allerigic reaction (from antibiotics or some other medication) * continue supportive therapy (8) Paroxysmal atrial fibrillation: Code(s): I48.0 - Paroxysmal atrial fibrillation Status: Acute Assessment and Plan: * rate control strategy * on diltiazem * on anticoagulation (Eliquis) Will continue to follow. L Plan Subjective Date/time seen: 03/11/25 13:01 Interval history: Follow-up for acute kidney injury/acute renal failure on chronic kidney disease. No apparent distress voiced at the time of my visit; mentation seems stable and at baseline; renal function/creatinine slightly worse but continues to make good urine output although K+ and acidosis worse; no other acute issues/events overnight or earlier this morning. Exam 2 Narrative: General: Large WD/WN male in NAD Heart: RRR, normal S1 and S2; no rub Lungs: decreased at bases Abdomen: soft, nontender, nondistended, positive bowel sounds; + colostomy Extremities: no cyanosis or clubbing; 1+ edema (UE > LE) Skin: warm and intact (resolving rash) Objective Data Vital Signs Vital Signs: Vital Signs Temp Pulse Resp BP Pulse Ox O2 Del Method O2 Flow Rate 03/11/25 12:00 84 03/11/25 08:10 69 127/59 L 96 03/11/25 08:00 68 03/11/25 08:00 Room Air 03/11/25 07:56 65 16 03/11/25 07:52 67 16 03/11/25 07:52 67 16 98 Nasal Cannula 1 03/11/25 06:07 97.7 F 70 16 152/65 H 100 03/11/25 04:00 75 03/11/25 00:00 73 03/10/25 22:58 97.9 F 73 16 136/54 L 98 03/10/25 21:06 68 18 03/10/25 21:00 95 Room Air 03/10/25 20:58 62 17 03/10/25 20:00 75 03/10/25 20:00 68 18 95 Room Air Intake/Output Intake/Output: Intake & Output 03/08/25 03/09/25 03/10/25 03/11/25 23:59 23:59 23:59 23:59 Intake Total 3980 3173.8 2507.0 1070 Output Total 900 1800 1950 2050 Balance 3080 1373.8 557.0 -980 Meds/Results Medications: Active Medications Generic Name Dose Route Start Last Admin Trade Name Freq PRN Reason Stop Dose Admin Acetaminophen 650 mg 03/05/25 23:48 03/07/25 19:48 Acetaminophen 325 Mg Tablet PO 650 mg Q4H PRN Administration Mild Pain (1-3) or Fever Apixaban 5 mg 03/07/25 21:00 03/10/25 08:40 Apixaban 5 Mg Tablet PO 5 mg On Hold: 03/10/25 12:38 Q12HR VAIBHAV Administration Diclofenac Sodium 1 applic 03/07/25 21:00 03/11/25 09:08 Diclofenac Sodium 1% 100 Gm Gel (*Bkc) TOPICAL Not Given Q12HR VAIBHAV Diltiazem HCl 30 mg 03/07/25 14:00 03/11/25 13:15 Diltiazem Hcl 30 Mg Tablet PO 30 mg Q8HR VAIBHAV Administration Diphenhydramine HCl 25 mg 03/07/25 08:21 03/08/25 21:10 Diphenhydramine Hcl Inj 50 Mg/Ml Vial IV PUSH 25 mg Q6HR PRN Administration Itching Fluticasone Propionate 2 spray 03/06/25 09:00 03/11/25 08:35 Fluticasone Propionate 0.05% Na Spr 16 Gm Btl (*Bkc) NASAL 2 spray DAILY VAIBHAV Administration Furosemide 40 mg 03/06/25 09:00 03/10/25 08:40 Furosemide 40 Mg Tablet PO 40 mg On Hold: 03/11/25 07:30 DAILY VAIBHAV Administration Hydrocortisone 1 applic 03/07/25 09:55 03/11/25 08:34 Hydrocortisone 1% 30 Gm Cream TOPICAL 1 applic Q12HR VAIBHAV Administration Hydroxyzine HCl 25 mg 03/08/25 00:55 03/10/25 21:16 Hydroxyzine Hcl 25 Mg Tablet PO 25 mg Q8H PRN Administration Itching Daptomycin 800 mg/ Sodium 50 mls @ 100 mls/hr 03/08/25 13:00 03/11/25 08:28 Chloride IVPB 100 mls/hr DAILY VAIBHAV Administration Ipratropium [place] 0.5 mg 03/06/25 09:00 03/11/25 13:22 Ipratropium Br 0.02% Inh Soln 0.5 Mg/2.5 Ml Vial INHALATION 0.5 mg TIDRT VAIBHAV Administration Levetiracetam 1,000 mg 03/10/25 21:00 03/11/25 08:23 Levetiracetam 500 Mg Tablet PO 1,000 mg Q12HR VAIBHAV Administration Levothyroxine Sodium 25 mcg 03/07/25 06:30 03/11/25 05:53 Levothyroxine Sodium 25 Mcg Tablet PO 25 mcg DAILY@0630 VAIBHAV Administration Lidocaine 2 patch 03/07/25 09:00 03/11/25 08:36 Lidocaine 5% Patch TRANSDERM 2 patch DAILY VAIBHAV Administration Loratadine 10 mg 03/07/25 09:55 03/11/25 08:22 Loratadine 10 Mg Tablet PO 10 mg QAM VAIBHAV Administration Lorazepam 2 mg 03/09/25 11:25 Lorazepam (*Crx) 1 Mg Tablet BY MOUTH Q6H PRN seizures Montelukast Sodium 10 mg 03/06/25 21:00 03/10/25 21:16 Montelukast Sodium 10 Mg Tablet PO 10 mg QHS VAIBHAV Administration Ondansetron HCl 4 mg 03/05/25 23:48 Ondansetron Inj 4 Mg/2 Ml Vial IV PUSH Q4H PRN Nausea Pantoprazole Sodium 40 mg 03/06/25 09:00 03/11/25 08:23 Pantoprazole 40 Mg Tablet PO 40 mg DAILY VAIBHAV Administration Perflutren Lipid Microsphere 0 ml 03/11/25 08:54 Perflutren Lipid Microspheres 1.5 Ml Vial Diluted To 10 Ml Total Volume IV PUSH 03/14/25 08:54 ONCE PRN adequate visualization Protocol Polyethylene Glycol 17 gm 03/07/25 21:00 03/10/25 21:15 Polyethylene Glycol 3350 17 Gm Powd.Pack PO Not Given HS VAIBHAV Prednisone 40 mg 03/07/25 08:00 03/11/25 08:45 Prednisone 20 Mg Tablet PO 03/12/25 07:59 40 mg DAILY@0800 VAIBHAV Administration Simethicone 80 mg 03/06/25 08:15 Simethicone 80 Mg Tab.Chew PO Q6H PRN Abdominal Discomfort Sodium Bicarbonate 650 mg 03/11/25 09:00 03/11/25 17:43 Sodium Bicarbonate Tab 650 Mg Tablet PO 650 mg BID VAIBHAV Administration Sodium Chloride 1 applic 03/06/25 09:00 03/11/25 17:53 Sodium Chloride 5% Ophth Oint 3.5 Gm Tube EACH EYE Not Given QID VAIBHAV Sodium Chloride 1 drop 03/09/25 21:00 03/11/25 08:34 Sodium Chloride 2% Op Soln 15 Ml Btl EACH EYE 1 drop Q12HR VAIBHAV Administration Radiology Results: ITS Impressions Head CT 03/05/25 21:31 Impression: No acute intracranial hemorrhage or suspicious mass effect. No cross-sectional imaging evidence to suggest the presence of intracranial abscess formation, as detailed above. Renal Ultrasound 03/10/25 19:19 Impression: 1: Bilateral renal cysts. Stable left renal cyst measuring 7.5 cm with rim calcification, likely benign given the lack of interval change from CT dated 08/07/2022. Chest X-Ray 03/11/25 08:12 Impression: 1: Interval progression of bilateral airspace disease, edema versus pneumonia. Clinically correlate. Labs Labs: Laboratory Tests 03/11/25 04:55 03/11/25 04:55 Calcium 8.2 L Magnesium 1.4 L Total Bilirubin 0.5 AST 35 ALT 48 Alkaline Phosphatase 160 H Total Creatine Kinase < 20 L Total Protein 6.1 L Albumin 2.8 L Microbiology 03/09/25 03:54 Blood Blood Culture - Preliminary 03/09/25 03:54 Blood Blood Culture - Preliminary 03/05/25 22:27 Blood Blood Culture - Final Staphylococcus capitis 03/05/25 22:27 Blood Blood Culture - Final Staphylococcus capitis
--- NOTE | 2025-03-11 13:13 | P.PNIM_ITS ---
Progress Note: A&P Assessment and Plan (1) Witnessed seizure-like activity: Code(s): R56.9 - Unspecified convulsions Status: Acute (2) Aspiration pneumonia of left lower lobe: Qualifiers: Aspiration pneumonia type: unspecified Qualified Code(s): J69.0 - Pneumonitis due to inhalation of food and vomit Code(s): J69.0 - Pneumonitis due to inhalation of food and vomit Status: Acute (3) Abnormal finding on urinalysis: Code(s): R82.90 - Unspecified abnormal findings in urine Status: Acute Plan Seizure, unwitnessed Keppra 1000mg bid Seizure precaution Consider CT/MRI EEG as per Neurology Neurology following Accu-Cheks Ativan 2 mg IV p.r.n. q.6 hours for seizures Aspiration pneumonia ruled out ID evaluated and noted no lung finding on chest xray Levaquin and Flagyl discontinued per ID monitor Reviewed chest X-Ray Allergic reaction to Unasyn Itching and redness markedly improved today with dicontinuing Unasyn yesterday Continue Levaquin and Flagyl, Vanc added s/p Claritin and prednisone ID following Recent VRE bacteremia Continue Daptomycin repeat blood culture showed 4/4 bottles but antibiogram shows resistance to Bactrim with one set, and susceptibility with the second, suggesting 2 distinct strains ID recommended ECHo and if negative and repeat blood culture negative would consider stopping Dpatomycin repeat blood cultures ordered ID following Anemia Hb 8.7, rs/p 1 unit pRBC GI evaluation noted and no intervention indicated continue monitoring Acute renal failure Cr 2.42 from 2.35 K 5.8 Nephrology following monitor Continue nighttime oxygen DVT prophylaxis on SCDs, awaiting GI eval Subjective Date/time seen: 03/11/25 13:13 Interval history: Comfortable at bedside on Room air at bedside Review of Systems Review of Systems: Unobtainable due to the patient's mental status Exam Narrative: Weight 131.5 kg BMI 38.2 Const: Other: Chronically ill-appearing but no acute distress, somnolent, chronically debilitated, morbidly obese, generalized anasarca, lying on the ER stretcher with head of bed at 20? HENMT: Other: Mucous membranes are dry, crowded posterior oropharynx Eyes: Other: Pupils are equal and reactive but patient does not track movement around the room Neck: Other: Large neck circumference, no JVD, thyroid goiter palpable larger on the left than the right (confirmed by prior CT scan 03/01/2025) Resp: Other: Sonorous respirations, periods of apnea, decreased breath sounds bilaterally, no increased work of breathing Cardio: Other: Regular rate, regular rhythm, no JVD GI: Other: Obese, distended, soft, positive bowel sounds, ostomy in the right abdomen with good output with the bag filled with gas : Other: Pereira catheter in place with drainage of clear urine Skin: Other: Erythema increased warmth to the medial left upper arm, some mild erythema to the right forearm but no increased warmth, anasarca changes to all extremities but bilateral upper extremities worse than lower extremities chronic, dried flaking skin bilateral feet, no foot wounds, thick yellow toenails Neuro: Other: Lethargic, difficult to arouse, does not follow commands but is moving bilateral upper extremities equally Extrem: Other: Pitting edema bilateral upper extremities, patient has well-healed scar on the left foot consistent with history of prior left great toe amputation, waffle boots in place bilaterally Psych: Other: Somnolent, difficult to arouse otherwise unable to assess due to patient condition Objective Data Vital Signs Vital Signs: Vital Signs - 24 hr 03/10/25 13:35 03/10/25 13:48 03/10/25 13:54 Temperature 97.4 F L Pulse Rate 73 79 78 Respiratory Rate 20 17 17 Blood Pressure 128/45 L Pulse Oximetry 97 Oxygen Delivery Oxygen Flow Rate Fraction of Inspired Oxygen 03/10/25 16:02 03/10/25 20:00 03/10/25 20:00 Temperature Pulse Rate 75 68 75 Respiratory Rate 18 Blood Pressure Pulse Oximetry 95 Oxygen Delivery Room Air Oxygen Flow Rate Fraction of Inspired Oxygen 28 03/10/25 20:58 03/10/25 21:00 03/10/25 21:06 Temperature Pulse Rate 62 68 Respiratory Rate 17 18 Blood Pressure Pulse Oximetry 95 Oxygen Delivery Room Air Oxygen Flow Rate Fraction of Inspired Oxygen 03/10/25 22:58 03/11/25 00:00 03/11/25 04:00 Temperature 97.9 F Pulse Rate 73 73 75 Respiratory Rate 16 Blood Pressure 136/54 L Pulse Oximetry 98 Oxygen Delivery Oxygen Flow Rate Fraction of Inspired Oxygen 03/11/25 06:07 03/11/25 07:52 03/11/25 07:52 Temperature 97.7 F Pulse Rate 70 67 67 Respiratory Rate 16 16 16 Blood Pressure 152/65 H Pulse Oximetry 100 98 Oxygen Delivery Nasal Cannula Oxygen Flow Rate 1 Fraction of Inspired Oxygen 03/11/25 07:56 03/11/25 08:10 Temperature Pulse Rate 65 69 Respiratory Rate 16 Blood Pressure 127/59 L Pulse Oximetry 96 Oxygen Delivery Oxygen Flow Rate Fraction of Inspired Oxygen Intake/Output Intake/Output: Intake & Output 03/08/25 03/09/25 03/10/25 03/11/25 23:59 23:59 23:59 23:59 Intake Total 3980 3173.8 2507.0 1070 Output Total 900 1800 1950 2050 Balance 3080 1373.8 557.0 -980 Meds/Results Medications: Active Medications Generic Name Dose Route Start Last Admin Trade Name Freq PRN Reason Stop Dose Admin Acetaminophen 650 mg 03/05/25 23:48 03/07/25 19:48 Acetaminophen 325 Mg Tablet PO 650 mg Q4H PRN Administration Mild Pain (1-3) or Fever Apixaban 5 mg 03/07/25 21:00 03/10/25 08:40 Apixaban 5 Mg Tablet PO 5 mg On Hold: 03/10/25 12:38 Q12HR VAIBHAV Administration Diclofenac Sodium 1 applic 03/07/25 21:00 03/11/25 09:08 Diclofenac Sodium 1% 100 Gm Gel (*Bkc) TOPICAL Not Given Q12HR VAIBHAV Diltiazem HCl 30 mg 03/07/25 14:00 03/11/25 05:53 Diltiazem Hcl 30 Mg Tablet PO 30 mg Q8HR VAIBHAV Administration Diphenhydramine HCl 25 mg 03/07/25 08:21 03/08/25 21:10 Diphenhydramine Hcl Inj 50 Mg/Ml Vial IV PUSH 25 mg Q6HR PRN Administration Itching Fluticasone Propionate 2 spray 03/06/25 09:00 03/11/25 08:35 Fluticasone Propionate 0.05% Na Spr 16 Gm Btl (*Bkc) NASAL 2 spray DAILY VAIBHAV Administration Furosemide 40 mg 03/06/25 09:00 03/10/25 08:40 Furosemide 40 Mg Tablet PO 40 mg On Hold: 03/11/25 07:30 DAILY VAIBHAV Administration Hydrocortisone 1 applic 03/07/25 09:55 03/11/25 08:34 Hydrocortisone 1% 30 Gm Cream TOPICAL 1 applic Q12HR VAIBHAV Administration Hydroxyzine HCl 25 mg 03/08/25 00:55 03/10/25 21:16 Hydroxyzine Hcl 25 Mg Tablet PO 25 mg Q8H PRN Administration Itching Daptomycin 800 mg/ Sodium 50 mls @ 100 mls/hr 03/08/25 13:00 03/11/25 08:28 Chloride IVPB 100 mls/hr DAILY VAIBHAV Administration Ipratropium [place] 0.5 mg 03/06/25 09:00 03/11/25 07:48 Ipratropium Br 0.02% Inh Soln 0.5 Mg/2.5 Ml Vial INHALATION 0.5 mg TIDRT VAIBHAV Administration Levetiracetam 1,000 mg 03/10/25 21:00 03/11/25 08:23 Levetiracetam 500 Mg Tablet PO 1,000 mg Q12HR VAIBHAV Administration Levothyroxine Sodium 25 mcg 03/07/25 06:30 03/11/25 05:53 Levothyroxine Sodium 25 Mcg Tablet PO 25 mcg DAILY@0630 VAIBHAV Administration Lidocaine 2 patch 03/07/25 09:00 03/11/25 08:36 Lidocaine 5% Patch TRANSDERM 2 patch DAILY VAIBHAV Administration Loratadine 10 mg 03/07/25 09:55 03/11/25 08:22 Loratadine 10 Mg Tablet PO 10 mg QAM VAIBHAV Administration Lorazepam 2 mg 03/09/25 11:25 Lorazepam (*Crx) 1 Mg Tablet BY MOUTH Q6H PRN seizures Montelukast Sodium 10 mg 03/06/25 21:00 03/10/25 21:16 Montelukast Sodium 10 Mg Tablet PO 10 mg QHS VAIBHAV Administration Ondansetron HCl 4 mg 03/05/25 23:48 Ondansetron Inj 4 Mg/2 Ml Vial IV PUSH Q4H PRN Nausea Pantoprazole Sodium 40 mg 03/06/25 09:00 03/11/25 08:23 Pantoprazole 40 Mg Tablet PO 40 mg DAILY VAIBHAV Administration Perflutren Lipid Microsphere 0 ml 03/11/25 08:54 Perflutren Lipid Microspheres 1.5 Ml Vial Diluted To 10 Ml Total Volume IV PUSH 03/14/25 08:54 ONCE PRN adequate visualization Protocol Polyethylene Glycol 17 gm 03/07/25 21:00 03/10/25 21:15 Polyethylene Glycol 3350 17 Gm Powd.Pack PO Not Given HS VAIBHAV Prednisone 40 mg 03/07/25 08:00 03/11/25 08:45 Prednisone 20 Mg Tablet PO 03/12/25 07:59 40 mg DAILY@0800 VAIBHAV Administration Simethicone 80 mg 03/06/25 08:15 Simethicone 80 Mg Tab.Chew PO Q6H PRN Abdominal Discomfort Sodium Bicarbonate 650 mg 03/11/25 09:00 03/11/25 08:23 Sodium Bicarbonate Tab 650 Mg Tablet PO 650 mg BID VAIBHAV Administration Sodium Chloride 1 applic 03/06/25 09:00 03/11/25 09:09 Sodium Chloride 5% Ophth Oint 3.5 Gm Tube EACH EYE Not Given QID VAIBHAV Sodium Chloride 1 drop 03/09/25 21:00 03/11/25 08:34 Sodium Chloride 2% Op Soln 15 Ml Btl EACH EYE 1 drop Q12HR VAIBHAV Administration Sodium Zirconium Cyclosilicate 10 gm 03/11/25 10:00 03/11/25 11:15 Sodium Zirconium Cyclosilicate 10 Gm Powd.Pack PO 03/11/25 18:01 10 gm BID@1000,1800 VAIBHAV Administration Radiology Results: ITS Impressions Head CT 03/05/25 21:31 Impression: No acute intracranial hemorrhage or suspicious mass effect. No cross-sectional imaging evidence to suggest the presence of intracranial abscess formation, as detailed above. Renal Ultrasound 03/10/25 19:19 Impression: 1: Bilateral renal cysts. Stable left renal cyst measuring 7.5 cm with rim calcification, likely benign given the lack of interval change from CT dated 08/07/2022. Chest X-Ray 03/11/25 08:12 Impression: 1: Interval progression of bilateral airspace disease, edema versus pneumonia. Clinically correlate. Labs Labs: Laboratory Results - last 24 hr 03/10/25 03/10/25 03/10/25 13:41 17:39 17:39 WBC RBC Hgb Hct MCV MCH MCHC RDW Plt Count MPV Immature Gran % (Auto) Neut % (Auto) Lymph % (Auto) [place] % (Auto) Eos % (Auto) Baso % (Auto) Lymph # (Auto) [place] # (Auto) Eos # (Auto) Baso # (Auto) Abs Immat Gran (auto) Absolute Neuts (auto) Absolute Nucleated RBC Nucleated RBC % Sodium Potassium Chloride Carbon Dioxide Anion Gap BUN Creatinine Estim Creat Clear Calc Estimated GFR Glucose Calcium Magnesium Total Bilirubin AST ALT Alkaline Phosphatase Total Creatine Kinase Total Protein Albumin Urine Eosinophils None seen U Random Total Protein 17 18 Ur Random Sodium 54 Ur Random Urea 351 Urine Creatinine 28.8 Protein/Creat Ratio 2 Stl Occult Blood (IFOB) Negative 03/10/25 03/11/25 17:39 04:55 WBC 12.3 H RBC 3.10 L Hgb 8.7 L Hct 27.7 L MCV 89.4 MCH 28.1 MCHC 31.4 L RDW 16.4 H Plt Count 204 MPV 9.5 Immature Gran % (Auto) 1.6 H Neut % (Auto) 84.6 H Lymph % (Auto) 7.8 L [place] % (Auto) 3.3 Eos % (Auto) 2.5 Baso % (Auto) 0.2 Lymph # (Auto) 0.96 [place] # (Auto) 0.4 Eos # (Auto) 0.3 Baso # (Auto) 0.0 Abs Immat Gran (auto) 0.20 H Absolute Neuts (auto) 10.4 H Absolute Nucleated RBC 0.000 Nucleated RBC % 0.0 Sodium 134 L Potassium 5.8 H Chloride 109 H Carbon Dioxide 17 L Anion Gap 8 BUN 63 H Creatinine 2.42 H Estim Creat Clear Calc 35 Estimated GFR 26 L Glucose 128 H Calcium 8.2 L Magnesium 1.4 L Total Bilirubin 0.5 AST 35 ALT 48 Alkaline Phosphatase 160 H Total Creatine Kinase < 20 L Total Protein 6.1 L Albumin 2.8 L Urine Eosinophils U Random Total Protein Ur Random Sodium Ur Random Urea Urine Creatinine 29.2 Protein/Creat Ratio 2 0.59 H Stl Occult Blood (IFOB) Quality VTE Prophylaxis VTE prophylaxis: pharmacologic ordered (Continue home Eliquis.)
[2025-03-11] MEDS: MONTELUKAST SODIUM 10 MG TABLET PO (21:59)
[2025-03-12] VITALS (18 sets, daily range): BP systolic 125–133; BP diastolic 45–52; PULSE 66–83; RESP 12–20; TEMP 36.4–36.7; O2SAT 95–100
[2025-03-12 04:44] LABS: Hematocrit 25.4 % (42.0-52.0); Hemoglobin 8.0 g/dL (14.0-18.0); Immature Granulocyte Percent A 2.1 % (0-0.5); Lymphocytes Absolute Auto 1.28 K/mm3 (0.9-3.2); Mean Corpuscular HGB Conc 31.5 g/dl (32-36); Mean Corpuscular Hemoglobin 27.9 pg (26-34); Mean Corpuscular Volume 88.5 fl (80-100); Nucleated Red Blood Cells Absolute Auto 0.000 K/mm3 (0.0-0.012); Nucleated Red Blood Cells Perc 0.0 % (0.0-0.2); Platelet Count Result 188 k/mm3 (150-375); Red Blood Count 2.87 M/mm3 (4.6-6.20); White Blood Count 11.2 K/mm3 (4.5-10.0)
[2025-03-12 05:10] LABS: Alanine Aminotransferase 48 U/L (6-50); Albumin Level 2.6 g/dL (3.5-5.1); Alkaline Phosphatase 138 U/L (38-126); Anion Gap 8 mmol/L (4-12); Aspartate Amino Transferase 32 U/L (17-59); Bilirubin,Total 0.4 mg/dL (0.2-1.3); Blood Urea Nitrogen 70 mg/dL (9-20); Calcium 8.0 mg/dL (8.4-10.2); Carbon Dioxide 18 mmol/L (22-30); Chloride 107 mmol/L (98-107); Estimated CRCL calculation 43 ml/min; Estimated Glomerular Filt Rate 33; Glucose 110 mg/dL (65-110); Magnesium 1.5 mg/dL (1.6-2.3); Potassium 5.2 mmol/L (3.4-5.0); Sodium 133 mmol/L (137-145); Total Protein 5.7 g/dL (6.3-8.2)
[2025-03-12] MEDS: LEVOTHYROXINE SODIUM 25 MCG TABLET PO (06:13)
[2025-03-12] MEDS: IPRATROPIUM BR 0.02% INH SOLN 0.5 MG/2.5 ML VIAL INHALATION ×3 (08:11→20:03)
--- NOTE | 2025-03-12 09:48 | PM.IMPN ---
Progress Note: A&P Assessment and Plan (1) Witnessed seizure-like activity: Code(s): R56.9 - Unspecified convulsions Status: Acute (2) Aspiration pneumonia of left lower lobe: Qualifiers: Aspiration pneumonia type: unspecified Qualified Code(s): J69.0 - Pneumonitis due to inhalation of food and vomit Code(s): J69.0 - Pneumonitis due to inhalation of food and vomit Status: Acute (3) Abnormal finding on urinalysis: Code(s): R82.90 - Unspecified abnormal findings in urine Status: Acute Plan Seizure, unwitnessed Keppra 1000mg bid Seizure precaution Consider CT/MRI EEG as per Neurology Neurology following Accu-Cheks Ativan 2 mg IV p.r.n. q.6 hours for seizures Aspiration pneumonia ruled out ID evaluated and noted no lung finding on chest xray Levaquin and Flagyl discontinued per ID monitor Reviewed chest X-Ray Allergic reaction to Unasyn Itching and redness markedly improved today with dicontinuing Unasyn yesterday Continue Levaquin and Flagyl, Vanc added s/p Claritin and prednisone ID following Recent VRE bacteremia Continue Daptomycin repeat blood culture showed 4/4 bottles but antibiogram shows resistance to Bactrim with one set, and susceptibility with the second, suggesting 2 distinct strains ID recommended ECHo and if negative and repeat blood culture negative would consider stopping Dpatomycin repeat blood cultures ordered ID following Anemia Hb 8.0, rs/p 1 unit pRBC GI evaluation noted and no intervention indicated continue monitoring Acute renal failure Cr 2.0 from 2.35 K 5.2 from 5.8 s/p Zirconium Nephrology following monitor Chronic respiratory failure Continue nighttime oxygen, 2 liters at nighttime Baseline DVT prophylaxis on SCDs, awaiting GI eval Subjective Date/time seen: 03/12/25 09:48 Interval history: Comfortable at bedside and no complaints today Review of Systems Review of Systems: Unobtainable due to the patient's mental status Exam Narrative: Weight 131.5 kg BMI 38.2 Const: Other: Chronically ill-appearing but no acute distress, somnolent, chronically debilitated, morbidly obese, generalized anasarca, lying on the ER stretcher with head of bed at 20? HENMT: Other: Mucous membranes are dry, crowded posterior oropharynx Eyes: Other: Pupils are equal and reactive but patient does not track movement around the room Neck: Other: Large neck circumference, no JVD, thyroid goiter palpable larger on the left than the right (confirmed by prior CT scan 03/01/2025) Resp: Other: Sonorous respirations, periods of apnea, decreased breath sounds bilaterally, no increased work of breathing Cardio: Other: Regular rate, regular rhythm, no JVD GI: Other: Obese, distended, soft, positive bowel sounds, ostomy in the right abdomen with good output with the bag filled with gas : Other: Pereira catheter in place with drainage of clear urine Skin: Other: Erythema increased warmth to the medial left upper arm, some mild erythema to the right forearm but no increased warmth, anasarca changes to all extremities but bilateral upper extremities worse than lower extremities chronic, dried flaking skin bilateral feet, no foot wounds, thick yellow toenails Neuro: Other: Lethargic, difficult to arouse, does not follow commands but is moving bilateral upper extremities equally Extrem: Other: Pitting edema bilateral upper extremities, patient has well-healed scar on the left foot consistent with history of prior left great toe amputation, waffle boots in place bilaterally Psych: Other: Somnolent, difficult to arouse otherwise unable to assess due to patient condition Objective Data Vital Signs Vital Signs: Vital Signs - 24 hr 03/11/25 12:00 03/11/25 13:17 03/11/25 13:23 Temperature Pulse Rate 84 73 78 Respiratory Rate 14 Blood Pressure 138/50 L Pulse Oximetry 100 Oxygen Delivery Oxygen Flow Rate 03/11/25 13:33 03/11/25 14:34 03/11/25 16:00 Temperature 97.4 F L Pulse Rate 80 76 70 Respiratory Rate 15 16 Blood Pressure 139/52 L Pulse Oximetry 96 Oxygen Delivery Oxygen Flow Rate 03/11/25 20:00 03/11/25 20:00 03/11/25 20:36 Temperature Pulse Rate 78 73 Respiratory Rate 16 Blood Pressure Pulse Oximetry 97 Oxygen Delivery Nasal Cannula Oxygen Flow Rate 2 03/11/25 20:37 03/11/25 20:39 03/11/25 20:43 Temperature 97.7 F Pulse Rate 73 74 73 Respiratory Rate 16 16 16 Blood Pressure 142/50 H Pulse Oximetry 96 97 Oxygen Delivery Room Air Oxygen Flow Rate 03/12/25 00:00 03/12/25 04:00 03/12/25 06:00 Temperature 98.0 F Pulse Rate 70 67 68 Respiratory Rate 16 Blood Pressure 128/47 L Pulse Oximetry 98 Oxygen Delivery Oxygen Flow Rate 03/12/25 08:11 03/12/25 08:13 03/12/25 08:21 Temperature Pulse Rate 76 78 Respiratory Rate 16 16 Blood Pressure Pulse Oximetry 96 Oxygen Delivery Room Air Oxygen Flow Rate Intake/Output Intake/Output: Intake & Output 03/09/25 03/10/25 03/11/25 03/12/25 23:59 23:59 23:59 23:59 Intake Total 3173.8 2507.0 2190 590 Output Total 1800 1950 4150 1450 Balance 1373.8 557.0 -1960 -860 Meds/Results Medications: Active Medications Generic Name Dose Route Start Last Admin Trade Name Freq PRN Reason Stop Dose Admin Acetaminophen 650 mg 03/05/25 23:48 03/07/25 19:48 Acetaminophen 325 Mg Tablet PO 650 mg Q4H PRN Administration Mild Pain (1-3) or Fever Apixaban 5 mg 03/07/25 21:00 03/10/25 08:40 Apixaban 5 Mg Tablet PO 5 mg On Hold: 03/10/25 12:38 Q12HR VAIBHAV Administration Diclofenac Sodium 1 applic 03/07/25 21:00 03/11/25 22:01 Diclofenac Sodium 1% 100 Gm Gel (*Bkc) TOPICAL Not Given Q12HR [facility]IBHAV Diltiazem HCl 30 mg 03/07/25 14:00 03/12/25 06:13 Diltiazem Hcl 30 Mg Tablet PO 30 mg Q8HR [facility]IB[facility]AV Administration Diphenhydramine HCl 25 mg 03/07/25 08:21 03/08/25 21:10 Diphenhydramine Hcl Inj 50 Mg/Ml Vial IV PUSH 25 mg Q6HR PRN Administration Itching Fluticasone Propionate 2 spray 03/06/25 09:00 03/11/25 08:35 Fluticasone Propionate 0.05% Na Spr 16 Gm Btl (*Bkc) NASAL 2 spray DAILY [facility]IB[facility]AV Administration Furosemide 40 mg 03/06/25 09:00 03/10/25 08:40 Furosemide 40 Mg Tablet PO 40 mg On Hold: 03/11/25 07:30 DAILY [facility]IB[facility]AV Administration Hydrocortisone 1 applic 03/07/25 09:55 03/11/25 22:01 Hydrocortisone 1% 30 Gm Cream TOPICAL Not Given Q12HR [facility]IBHAV Hydroxyzine HCl 25 mg 03/08/25 00:55 03/10/25 21:16 Hydroxyzine Hcl 25 Mg Tablet PO 25 mg Q8H PRN Administration Itching Daptomycin 800 mg/ Sodium 50 mls @ 100 mls/hr 03/08/25 13:00 03/11/25 08:28 Chloride IVPB 100 mls/hr DAILY [facility] Administration Magnesium Sulfate 2 gm in 50 mls @ 25 mls/hr 03/12/25 08:30 Magnesium Sulf 2 Gm/Water 50ml IVPB 03/12/25 10:29 ONCE ONE Ipratropium [place] 0.5 mg 03/06/25 09:00 03/12/25 08:11 Ipratropium Br 0.02% Inh Soln 0.5 Mg/2.5 Ml Vial INHALATION 0.5 mg TIDRT [facility]IB[facility]AV Administration Levetiracetam 1,000 mg 03/10/25 21:00 03/11/25 21:59 Levetiracetam 500 Mg Tablet PO 1,000 mg Q12HR [facility] Administration Levothyroxine Sodium 25 mcg 03/07/25 06:30 03/12/25 06:13 Levothyroxine Sodium 25 Mcg Tablet PO 25 mcg DAILY@0630 [facility] Administration Lidocaine 2 patch 03/07/25 09:00 03/11/25 08:36 Lidocaine 5% Patch TRANSDERM 2 patch DAILY [facility] Administration Loratadine 10 mg 03/07/25 09:55 03/11/25 08:22 Loratadine 10 Mg Tablet PO 10 mg QAM [facility] Administration Lorazepam 2 mg 03/09/25 11:25 Lorazepam (*Crx) 1 Mg Tablet BY MOUTH Q6H PRN seizures Montelukast Sodium 10 mg 03/06/25 21:00 03/11/25 21:59 Montelukast Sodium 10 Mg Tablet PO 10 mg QHS [facility] Administration Ondansetron HCl 4 mg 03/05/25 23:48 Ondansetron Inj 4 Mg/2 Ml Vial IV PUSH Q4H PRN Nausea Pantoprazole Sodium 40 mg 03/06/25 09:00 03/11/25 08:23 Pantoprazole 40 Mg Tablet PO 40 mg DAILY [facility] Administration Perflutren Lipid Microsphere 0 ml 03/11/25 08:54 Perflutren Lipid Microspheres 1.5 Ml Vial Diluted To 10 Ml Total Volume IV PUSH 03/14/25 08:54 ONCE PRN adequate visualization Protocol Polyethylene Glycol 17 gm 03/07/25 21:00 03/11/25 22:00 Polyethylene Glycol 3350 17 Gm Powd.Pack PO Not Given HS [facility]IBHAV Simethicone 80 mg 03/06/25 08:15 Simethicone 80 Mg Tab.Chew PO Q6H PRN Abdominal Discomfort Sodium Bicarbonate 650 mg 03/11/25 09:00 03/11/25 17:43 Sodium Bicarbonate Tab 650 Mg Tablet PO 650 mg BID [facility]IB[facility]AV Administration Sodium Chloride 1 applic 03/06/25 09:00 03/11/25 22:02 Sodium Chloride 5% Ophth Oint 3.5 Gm Tube EACH EYE Not Given QID [facility]IB[facility]AV Sodium Chloride 1 drop 03/09/25 21:00 03/11/25 22:02 Sodium Chloride 2% Op Soln 15 Ml Btl EACH EYE 1 drop Q12HR [facility]IBHAV Administration Radiology Results: ITS Impressions Head CT 03/05/25 21:31 Impression: No acute intracranial hemorrhage or suspicious mass effect. No cross-sectional imaging evidence to suggest the presence of intracranial abscess formation, as detailed above. Renal Ultrasound 03/10/25 19:19 Impression: 1: Bilateral renal cysts. Stable left renal cyst measuring 7.5 cm with rim calcification, likely benign given the lack of interval change from CT dated 08/07/2022. Chest X-Ray 03/11/25 08:12 Impression: 1: Interval progression of bilateral airspace disease, edema versus pneumonia. Clinically correlate. Labs Labs: Laboratory Results - last 24 hr 03/12/25 04:37 WBC 11.2 H RBC 2.87 L Hgb 8.0 L Hct 25.4 L MCV 88.5 MCH 27.9 MCHC 31.5 L RDW 16.1 H Plt Count 188 MPV 9.4 Immature Gran % (Auto) 2.1 H Neut % (Auto) 75.7 H Lymph % (Auto) 11.5 L [place] % (Auto) 10.1 H Eos % (Auto) 0.4 Baso % (Auto) 0.2 Lymph # (Auto) 1.28 [place] # (Auto) 1.1 H Eos # (Auto) 0.1 Baso # (Auto) 0.0 Abs Immat Gran (auto) 0.23 H Absolute Neuts (auto) 8.5 H Absolute Nucleated RBC 0.000 Nucleated RBC % 0.0 Sodium 133 L Potassium 5.2 H Chloride 107 Carbon Dioxide 18 L Anion Gap 8 BUN 70 H Creatinine 2.00 H Estim Creat Clear Calc 43 Estimated GFR 33 L Glucose 110 Calcium 8.0 L Magnesium 1.5 L Total Bilirubin 0.4 AST 32 ALT 48 Alkaline Phosphatase 138 H Total Protein 5.7 L Albumin 2.6 L Quality VTE Prophylaxis VTE prophylaxis: pharmacologic ordered (Continue home Eliquis.)
[2025-03-12] MEDS: DAPTOMYCIN IVPB (10:05)
[2025-03-12] MEDS: SODIUM CHLORIDE 0.9% IVPB (10:05)
[2025-03-12] MEDS: MAGNESIUM SULF 2 GM/WATER 50ML 2 GM/50 ML BAG IVPB (10:06)
[2025-03-12] MEDS: FLUTICASONE PROPIONATE 0.05% NA SPR 16 GM BTL (*BKC) 2 SPRAY NASAL (10:08)
[2025-03-12] MEDS: LIDOCAINE 5% PATCH 2 PATCH TRANSDERM (10:10)
[2025-03-12] MEDS: SODIUM BICARBONATE TAB 650 MG TABLET PO ×2 (10:11→17:18)
[2025-03-12] MEDS: PANTOPRAZOLE 40 MG TABLET PO (10:11)
[2025-03-12] MEDS: LORATADINE 10 MG TABLET PO (10:11)
[2025-03-12] MEDS: SODIUM CHLORIDE 2% OP SOLN 15 ML BTL 1 DROP EACH EYE ×2 (10:12→20:34)
--- NOTE | 2025-03-12 11:07 | PM.PNNEP ---
Progress Note: A&P Assessment and Plan (1) Acute kidney injury: Code(s): N17.9 - Acute kidney failure, unspecified Status: Acute Assessment and Plan: improving as noted by trend of labs since admission however, rise in creatinine noted on last day of previous admission: creatinine went from 1.25 --> 1.71mg/dL (from 03/02 --> 03/03) creatinine on admission (03/05) was 1.81mg/dL etiology not entirely clear but several possibilities: infection (bacteremia +/- pneumonia) prerenal factors possibly AIN (suspected allergic reaction to antibiotics with erythroderma + eosinophilia); but already on steroids contrast exposure (contrast CT on 03/01) anemia other(?) evaluation to date: renal u/s without obstruction urine electrolytes non-prerenal urine eosinophils negative CPK low moderate proteinuria given IV lasix (on 03/11) due to CXR findings s/p lokelma for elevated K+ on sodium bicarbonate for acidosis follow trend of repeat labs and UOP (2) Stage 3 chronic kidney disease: Code(s): N18.30 - Chronic kidney disease, stage 3 unspecified Status: Chronic Assessment and Plan: baseline creatinine had been running ~ 1.4 - 1.7mg/dl in the last couple of years HOWEVER, has been as high as 1.8 - 2.3mg/dl during some of his acute hospitalizations this causes him to fluctuate between CKD stage 3A and stage 3B his CKD is secondary to his hypertension, congestive heart failure, vascular disease, previous acute kidney injury/acute renal failure requiring dialysis, and 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) (3) Bacteremia: Code(s): R78.81 - Bacteremia Status: Acute Assessment and Plan: blood cultures on this admission with Staph capitis recent hospitalization with VRE bacteremia Infectious Disease following with recommendations noted continue antibiotics for now repeat TTE noted (no evidence of vegetation) follow repeat blood cultures (4) Altered mental status: Qualifiers: Altered mental status type: delirium Qualified Code(s): R41.0 - Disorientation, unspecified Code(s): R41.82 - Altered mental status, unspecified Status: Acute Assessment and Plan: resolved as noted on presentation due to infection versus seizure versus other(?) imaging/testing noted: CT of head (this admission) negative MRI of brain (last admission - on 03/01) negative EEG (03/02) results reviewed follow trend of mentation (5) Anemia: Code(s): D64.9 - Anemia, unspecified Status: Acute Assessment and Plan: noted drop in H/H (on 03/10) possibly partly related to underlying CKD could be dilutional given recent IVFs GI recommendations noted PRBC transfusion per protocol follow trend of H/H (6) Seizure: Code(s): R56.9 - Unspecified convulsions Status: Acute Assessment and Plan: possible etiology of #4 Neurology following with recommendations noted previous EEG noted on Keppra seizure precautions (7) Erythroderma: Code(s): L53.9 - Erythematous condition, unspecified Status: Acute Assessment and Plan: slow improvement/resolving s/p prednisone therapy and claritin remains on benadryl and steroid cream suspect secondary to allergic reaction (from antibiotics or some other medication) continue supportive therapy (8) Paroxysmal atrial fibrillation: Code(s): I48.0 - Paroxysmal atrial fibrillation Status: Acute Assessment and Plan: rate control strategy on diltiazem on anticoagulation (Eliquis) Will continue to follow. Plan Subjective Date/time seen: 03/12/25 11:07 Interval history: Follow-up for acute kidney injury/acute renal failure on chronic kidney disease. No apparent distress noted at the time of my visit; in spite of IV diuretics yesterday, renal function/creatinine doing better by recent testing with good urine output noted; potassium and acidosis relatively stable as well; no other issues/events overnight or earlier this morning. Exam Narrative: General: Large WD/WN male in NAD Heart: RRR, normal S1 and S2; no rub Lungs: decreased at bases Abdomen: soft, nontender, nondistended, positive bowel sounds; + colostomy Extremities: no cyanosis or clubbing; 1+ edema (UE > LE) Skin: resolving rash Objective Data Vital Signs Vital Signs: Vital Signs Temp Pulse Resp BP Pulse Ox O2 Del Method O2 Flow Rate 03/12/25 08:21 78 16 03/12/25 08:13 96 Room Air 03/12/25 08:11 76 16 03/12/25 08:00 66 03/12/25 08:00 Room Air 03/12/25 06:00 98.0 F 68 16 128/47 L 98 03/12/25 04:00 67 03/12/25 00:00 70 03/11/25 20:43 73 16 03/11/25 20:39 97.7 F 74 16 142/50 H 97 03/11/25 20:37 73 16 96 Room Air 03/11/25 20:36 73 16 03/11/25 20:00 78 03/11/25 20:00 97 Nasal Cannula 2 03/11/25 16:00 70 03/11/25 14:34 97.4 F L 76 16 139/52 L 96 03/11/25 13:33 80 15 03/11/25 13:23 78 14 03/11/25 13:17 73 138/50 L 100 Intake/Output Intake/Output: Intake & Output 03/09/25 03/10/25 03/11/25 03/12/25 23:59 23:59 23:59 23:59 Intake Total 3173.8 2507.0 2240 590 Output Total 1800 1950 4150 1500 Balance 1373.8 557.0 -1910 -910 Meds/Results Medications: Active Medications Generic Name Dose Route Start Last Admin Trade Name Freq PRN Reason Stop Dose Admin Acetaminophen 650 mg 03/05/25 23:48 03/07/25 19:48 Acetaminophen 325 Mg Tablet PO 650 mg Q4H PRN Administration Mild Pain (1-3) or Fever Apixaban 5 mg 03/07/25 21:00 03/10/25 08:40 Apixaban 5 Mg Tablet PO 5 mg On Hold: 03/10/25 12:38 Q12HR VAIBHAV Administration Diclofenac Sodium 1 applic 03/07/25 21:00 03/12/25 10:08 Diclofenac Sodium 1% 100 Gm Gel (*Bkc) TOPICAL Not Given Q12HR VAIBHAV Diltiazem HCl 30 mg 03/07/25 14:00 03/12/25 06:13 Diltiazem Hcl 30 Mg Tablet PO 30 mg Q8HR [facility]IB[facility]AV Administration Diphenhydramine HCl 25 mg 03/07/25 08:21 03/08/25 21:10 Diphenhydramine Hcl Inj 50 Mg/Ml Vial IV PUSH 25 mg Q6HR PRN Administration Itching Fluticasone Propionate 2 spray 03/06/25 09:00 03/12/25 10:08 Fluticasone Propionate 0.05% Na Spr 16 Gm Btl (*Bkc) NASAL 2 spray DAILY VAIBHAV Administration Furosemide 40 mg 03/06/25 09:00 03/10/25 08:40 Furosemide 40 Mg Tablet PO 40 mg On Hold: 03/11/25 07:30 DAILY [facility]IB[facility]AV Administration Hydrocortisone 1 applic 03/07/25 09:55 03/12/25 10:09 Hydrocortisone 1% 30 Gm Cream TOPICAL Not Given Q12HR VAIB[facility]AV Hydroxyzine HCl 25 mg 03/08/25 00:55 03/10/25 21:16 Hydroxyzine Hcl 25 Mg Tablet PO 25 mg Q8H PRN Administration Itching Daptomycin 800 mg/ Sodium 50 mls @ 100 mls/hr 03/08/25 13:00 03/12/25 10:05 Chloride IVPB 100 mls/hr DAILY [facility] Administration Ipratropium [place] 0.5 mg 03/06/25 09:00 03/12/25 08:11 Ipratropium Br 0.02% Inh Soln 0.5 Mg/2.5 Ml Vial INHALATION 0.5 mg TIDRT [facility] Administration Levetiracetam 1,000 mg 03/10/25 21:00 03/12/25 10:10 Levetiracetam 500 Mg Tablet PO 1,000 mg Q12HR [facility] Administration Levothyroxine Sodium 25 mcg 03/07/25 06:30 03/12/25 06:13 Levothyroxine Sodium 25 Mcg Tablet PO 25 mcg DAILY@0630 [facility] Administration Lidocaine 2 patch 03/07/25 09:00 03/12/25 10:10 Lidocaine 5% Patch TRANSDERM 2 patch DAILY [facility] Administration Loratadine 10 mg 03/07/25 09:55 03/12/25 10:11 Loratadine 10 Mg Tablet PO 10 mg QAM [facility] Administration Lorazepam 2 mg 03/09/25 11:25 Lorazepam (*Crx) 1 Mg Tablet BY MOUTH Q6H PRN seizures Montelukast Sodium 10 mg 03/06/25 21:00 03/11/25 21:59 Montelukast Sodium 10 Mg Tablet PO 10 mg QHS [facility] Administration Ondansetron HCl 4 mg 03/05/25 23:48 Ondansetron Inj 4 Mg/2 Ml Vial IV PUSH Q4H PRN Nausea Pantoprazole Sodium 40 mg 03/06/25 09:00 03/12/25 10:11 Pantoprazole 40 Mg Tablet PO 40 mg DAILY [facility] Administration Perflutren Lipid Microsphere 0 ml 03/11/25 08:54 Perflutren Lipid Microspheres 1.5 Ml Vial Diluted To 10 Ml Total Volume IV PUSH 03/14/25 08:54 ONCE PRN adequate visualization Protocol Polyethylene Glycol 17 gm 03/07/25 21:00 03/11/25 22:00 Polyethylene Glycol 3350 17 Gm Powd.Pack PO Not Given HS VAIBHAV Simethicone 80 mg 03/06/25 08:15 Simethicone 80 Mg Tab.Chew PO Q6H PRN Abdominal Discomfort Sodium Bicarbonate 650 mg 03/11/25 09:00 03/12/25 10:11 Sodium Bicarbonate Tab 650 Mg Tablet PO 650 mg BID [facility]IB[facility]AV Administration Sodium Chloride 1 applic 03/06/25 09:00 03/12/25 10:12 Sodium Chloride 5% Ophth Oint 3.5 Gm Tube EACH EYE Not Given QID [facility]IB[facility]AV Sodium Chloride 1 drop 03/09/25 21:00 03/12/25 10:12 Sodium Chloride 2% Op Soln 15 Ml Btl EACH EYE 1 drop Q12HR [facility]IBHAV Administration Radiology Results: ITS Impressions Head CT 03/05/25 21:31 Impression: No acute intracranial hemorrhage or suspicious mass effect. No cross-sectional imaging evidence to suggest the presence of intracranial abscess formation, as detailed above. Renal Ultrasound 03/10/25 19:19 Impression: 1: Bilateral renal cysts. Stable left renal cyst measuring 7.5 cm with rim calcification, likely benign given the lack of interval change from CT dated 08/07/2022. Chest X-Ray 03/11/25 08:12 Impression: 1: Interval progression of bilateral airspace disease, edema versus pneumonia. Clinically correlate. Labs Labs: Laboratory Tests 03/12/25 04:37 03/12/25 04:37 Calcium 8.0 L Magnesium 1.5 L Total Bilirubin 0.4 AST 32 ALT 48 Alkaline Phosphatase 138 H Total Protein 5.7 L Albumin 2.6 L Microbiology 03/09/25 03:54 Blood Blood Culture - Preliminary 03/09/25 03:54 Blood Blood Culture - Preliminary
[2025-03-12 15:44] LABS: Magnesium 1.7 mg/dL (1.6-2.3)
[2025-03-12 15:48] LABS: NT Pro B Type Natriuretic Pept 19100 pg/mL (19.9-100)
[2025-03-12 16:10] LABS: Anion Gap 8 mmol/L (4-12); Blood Urea Nitrogen 66 mg/dL (9-20); Calcium 8.4 mg/dL (8.4-10.2); Carbon Dioxide 18 mmol/L (22-30); Chloride 106 mmol/L (98-107); Estimated CRCL calculation 43 ml/min; Estimated Glomerular Filt Rate 34; Glucose 111 mg/dL (65-110); Potassium 4.8 mmol/L (3.4-5.0); Sodium 132 mmol/L (137-145)
[2025-03-12] MEDS: MAGNESIUM SULF 1 GM/D5W 100 ML 1 GM/100 ML BAG IVPB (16:30)
[2025-03-12] MEDS: MONTELUKAST SODIUM 10 MG TABLET PO (20:32)
[2025-03-13] VITALS (18 sets, daily range): BP systolic 130–139; BP diastolic 44–53; PULSE 69–96; RESP 12–20; TEMP 36.2–36.4; O2SAT 92–98
[2025-03-13 05:03] LABS: Hematocrit 28.4 % (42.0-52.0); Hemoglobin 8.9 g/dL (14.0-18.0); Immature Platelet Fraction Pct 2.0 % (0.9-11.2); Mean Corpuscular HGB Conc 31.3 g/dl (32-36); Mean Corpuscular Hemoglobin 28.6 pg (26-34); Mean Corpuscular Volume 91.3 fl (80-100); Platelet Count Result 213 k/mm3 (150-375); Red Blood Count 3.11 M/mm3 (4.6-6.20); White Blood Count 10.9 K/mm3 (4.5-10.0)
[2025-03-13 05:17] LABS: Alanine Aminotransferase 62 U/L (6-50); Albumin Level 2.7 g/dL (3.5-5.1); Alkaline Phosphatase 147 U/L (38-126); Anion Gap 8 mmol/L (4-12); Aspartate Amino Transferase 37 U/L (17-59); Bilirubin,Total 0.4 mg/dL (0.2-1.3); Blood Urea Nitrogen 64 mg/dL (9-20); Calcium 8.0 mg/dL (8.4-10.2); Carbon Dioxide 20 mmol/L (22-30); Chloride 105 mmol/L (98-107); Estimated CRCL calculation 46 ml/min; Estimated Glomerular Filt Rate 36; Glucose 79 mg/dL (65-110); Magnesium 1.9 mg/dL (1.6-2.3); Potassium 5.0 mmol/L (3.4-5.0); Sodium 133 mmol/L (137-145); Total Protein 5.7 g/dL (6.3-8.2)
[2025-03-13 05:31] LABS: Band Neutrophils Percent 1 % (0-6); Basophils Absolute Manual 0.10 K/mm3 (0.0-0.1); Basophils Percent Manual 1 % (0-1); Eosinophils Absolute Manual 1.96 K/mm3 (0.02-0.50); Eosinophils Percent Manual 18 % (0-4); Lymphocytes Absolute Manual 2.28 K/mm3 (1.1-4.5); Lymphocytes Percent Manual 21.0 % (18-44); Monocytes Absolute Manual 0.32 K/mm3 (0.1-0.90); Monocytes Percent Manual 3 % (3-9); Neutrophils Absolute Manual 6.21 K/mm3 (1.3-6.7); Neutrophils Percent Manual 56 % (46-73); Total Cells Counted 100
[2025-03-13 05:32] LABS: Anisocytosis 1+; Hypochromasia 1+; Microcytosis 1+ (NORMAL); Ovalocytes 1+; Poikilocytosis 1+; Schistocytes None Seen
[2025-03-13 05:33] LABS: Smudge Cells PRESENT
[2025-03-13] MEDS: LEVOTHYROXINE SODIUM 25 MCG TABLET PO (06:06)
[2025-03-13] MEDS: IPRATROPIUM BR 0.02% INH SOLN 0.5 MG/2.5 ML VIAL INHALATION ×3 (07:46→19:35)
[2025-03-13] MEDS: DAPTOMYCIN IVPB (10:10)
[2025-03-13] MEDS: SODIUM CHLORIDE 0.9% IVPB (10:10)
[2025-03-13] MEDS: FLUTICASONE PROPIONATE 0.05% NA SPR 16 GM BTL (*BKC) 2 SPRAY NASAL (10:10)
[2025-03-13] MEDS: PANTOPRAZOLE 40 MG TABLET PO (10:12)
[2025-03-13] MEDS: SODIUM BICARBONATE TAB 650 MG TABLET PO ×2 (10:12→17:57)
[2025-03-13] MEDS: LORATADINE 10 MG TABLET PO (10:12)
[2025-03-13] MEDS: LIDOCAINE 5% PATCH 2 PATCH TRANSDERM (10:12)
[2025-03-13] MEDS: SODIUM CHLORIDE 2% OP SOLN 15 ML BTL 1 DROP EACH EYE (10:13)
--- NOTE | 2025-03-13 11:03 | P.PNNP_ITS ---
Progress Note: A&P Assessment and Plan (1) Acute kidney injury: Code(s): N17.9 - Acute kidney failure, unspecified Status: Acute Assessment and Plan: * improving * as noted by trend of labs since admission * however, rise in creatinine noted on last day of previous admission: creatinine went from 1.25 --> 1.71mg/dL (from 03/02 --> 03/03) * creatinine on admission (03/05) was 1.81mg/dL * etiology not entirely clear but several possibilities: * infection (bacteremia +/- pneumonia) * prerenal factors * possibly AIN (suspected allergic reaction to antibiotics with erythroderma + eosinophilia); but already on steroids * contrast exposure (contrast CT on 03/01) * anemia * other(?) * evaluation to date: * renal u/s without obstruction * urine electrolytes non-prerenal * urine eosinophils negative * CPK low * moderate proteinuria * oral lasix on hold * s/p lokelma for elevated K+ * on sodium bicarbonate for acidosis - will attempt to wean as tolerated * follow trend of repeat labs and UOP (2) Stage 3 chronic kidney disease: Code(s): N18.30 - Chronic kidney disease, stage 3 unspecified Status: Chronic Assessment and Plan: * baseline creatinine had been running ~ 1.4 - 1.7mg/dl in the last couple of years * HOWEVER, has been as high as 1.8 - 2.3mg/dl during some of his acute hospitalizations * this causes him to fluctuate between CKD stage 3A and stage 3B * his CKD is secondary to his hypertension, congestive heart failure, vascular disease, previous acute kidney injury/acute renal failure requiring dialysis, and 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) (3) Bacteremia: Code(s): R78.81 - Bacteremia Status: Acute Assessment and Plan: * blood cultures on this admission with Staph capitis * recent hospitalization with VRE bacteremia * Infectious Disease following with recommendations noted * continue antibiotics for now * repeat TTE noted (no evidence of vegetation) * follow repeat blood cultures (4) Altered mental status: Qualifiers: Altered mental status type: delirium Qualified Code(s): R41.0 - Disorientation, unspecified Code(s): R41.82 - Altered mental status, unspecified Status: Acute Assessment and Plan: * resolved * as noted on presentation * due to infection versus seizure versus other(?) * imaging/testing noted: * CT of head (this admission) negative * MRI of brain (last admission - on 03/01) negative * EEG (03/02) results reviewed * follow trend of mentation (5) Anemia: Code(s): D64.9 - Anemia, unspecified Status: Acute Assessment and Plan: * noted drop in H/H (on 03/10) * possibly partly related to underlying CKD * could be dilutional given recent IVFs * GI recommendations noted * PRBC transfusion per protocol * follow trend of H/H (6) Seizure: Code(s): R56.9 - Unspecified convulsions Status: Acute Assessment and Plan: * possible etiology of #4 * Neurology following with recommendations noted * previous EEG noted * on Keppra * seizure precautions (7) Erythroderma: Code(s): L53.9 - Erythematous condition, unspecified Status: Acute Assessment and Plan: * resolving * s/p prednisone therapy and claritin * remains on benadryl and steroid cream * suspect secondary to allergic reaction (from antibiotics or some other medication) * continue supportive therapy (8) Paroxysmal atrial fibrillation: Code(s): I48.0 - Paroxysmal atrial fibrillation Status: Acute Assessment and Plan: * rate control strategy * on diltiazem * on anticoagulation (Eliquis) Will continue to follow. L Plan Subjective Date/time seen: 03/13/25 11:03 Interval history: Follow-up for acute kidney injury/acute renal failure on chronic kidney disease. Renal function/creatinine continues to improve as noted by trend of labs; no acute issues/events overnight or earlier today; no apparent distress noted when seen; mentation appears stable if not better; potassium and acidosis improving as well. Exam 2 Narrative: General: Large WD/WN male in NAD Heart: RRR, normal S1 and S2; no rub Lungs: decreased at bases Abdomen: soft, nontender, nondistended, positive bowel sounds; + colostomy Extremities: no cyanosis or clubbing; 1+ edema (UE > LE) Skin: warm and dry Objective Data Vital Signs Vital Signs: Vital Signs Temp Pulse Resp BP Pulse Ox O2 Del Method O2 Flow Rate 03/13/25 08:52 92 Room Air 03/13/25 08:00 Room Air 03/13/25 08:00 89 03/13/25 08:00 82 18 03/13/25 07:49 82 18 03/13/25 07:49 96 Room Air 03/13/25 07:43 98 Nasal Cannula 1 03/13/25 05:13 97.3 F L 77 12 136/46 L 98 03/13/25 04:00 69 03/13/25 00:00 85 03/12/25 20:13 83 20 03/12/25 20:06 97.5 F L 78 12 125/45 L 100 03/12/25 20:05 82 20 95 Room Air 03/12/25 20:04 82 20 03/12/25 20:00 83 03/12/25 20:00 83 20 100 Room Air 03/12/25 16:00 77 03/12/25 15:24 83 03/12/25 14:00 97.7 F 75 16 131/52 L 97 03/12/25 13:44 77 16 03/12/25 13:38 75 16 03/12/25 13:03 77 133/46 L 99 Intake/Output Intake/Output: Intake & Output 03/10/25 03/11/25 03/12/25 03/13/25 23:59 23:59 23:59 23:59 Intake Total 2507.0 2240 1000 640 Output Total 1950 4150 3700 1400 Balance 557.0 -0590 -2700 -760 Meds/Results Medications: Active Medications Generic Name Dose Route Start Last Admin Trade Name Freq PRN Reason Stop Dose Admin Acetaminophen 650 mg 03/05/25 23:48 03/07/25 19:48 Acetaminophen 325 Mg Tablet PO 650 mg Q4H PRN Administration Mild Pain (1-3) or Fever Apixaban 5 mg 03/07/25 21:00 03/10/25 08:40 Apixaban 5 Mg Tablet PO 5 mg On Hold: 03/10/25 12:38 Q12HR VAIBHAV Administration Diclofenac Sodium 1 applic 03/07/25 21:00 03/13/25 10:10 Diclofenac Sodium 1% 100 Gm Gel (*Bkc) TOPICAL Not Given Q12HR VAIBHAV Diltiazem HCl 30 mg 03/07/25 14:00 03/13/25 06:06 Diltiazem Hcl 30 Mg Tablet PO 30 mg Q8HR VAIBHAV Administration Diphenhydramine HCl 25 mg 03/07/25 08:21 03/08/25 21:10 Diphenhydramine Hcl Inj 50 Mg/Ml Vial IV PUSH 25 mg Q6HR PRN Administration Itching Fluticasone Propionate 2 spray 03/06/25 09:00 03/13/25 10:10 Fluticasone Propionate 0.05% Na Spr 16 Gm Btl (*Bkc) NASAL 2 spray DAILY VAIBHAV Administration Furosemide 40 mg 03/06/25 09:00 03/10/25 08:40 Furosemide 40 Mg Tablet PO 40 mg On Hold: 03/11/25 07:30 DAILY VAIBHAV Administration Hydrocortisone 1 applic 03/07/25 09:55 03/13/25 10:10 Hydrocortisone 1% 30 Gm Cream TOPICAL Not Given Q12HR VAIBHAV Hydroxyzine HCl 25 mg 03/08/25 00:55 03/10/25 21:16 Hydroxyzine Hcl 25 Mg Tablet PO 25 mg Q8H PRN Administration Itching Daptomycin 800 mg/ Sodium 50 mls @ 100 mls/hr 03/08/25 13:00 03/13/25 10:10 Chloride IVPB 100 mls/hr DAILY VAIBHAV Administration Ipratropium [place] 0.5 mg 03/06/25 09:00 03/13/25 07:46 Ipratropium Br 0.02% Inh Soln 0.5 Mg/2.5 Ml Vial INHALATION 0.5 mg TIDRT VAIBHAV Administration Levetiracetam 1,500 mg 03/13/25 09:00 03/13/25 10:11 Levetiracetam 500 Mg Tablet PO 1,500 mg Q12HR VAIBHAV Administration Levothyroxine Sodium 25 mcg 03/07/25 06:30 03/13/25 06:06 Levothyroxine Sodium 25 Mcg Tablet PO 25 mcg DAILY@0630 VAIBHAV Administration Lidocaine 2 patch 03/07/25 09:00 03/13/25 10:12 Lidocaine 5% Patch TRANSDERM 2 patch DAILY VAIBHAV Administration Loratadine 10 mg 03/07/25 09:55 03/13/25 10:12 Loratadine 10 Mg Tablet PO 10 mg QAM VAIBHAV Administration Lorazepam 2 mg 03/09/25 11:25 Lorazepam (*Crx) 1 Mg Tablet BY MOUTH Q6H PRN seizures Montelukast Sodium 10 mg 03/06/25 21:00 03/12/25 20:32 Montelukast Sodium 10 Mg Tablet PO 10 mg QHS VAIBHAV Administration Ondansetron HCl 4 mg 03/05/25 23:48 Ondansetron Inj 4 Mg/2 Ml Vial IV PUSH Q4H PRN Nausea Pantoprazole Sodium 40 mg 03/06/25 09:00 03/13/25 10:12 Pantoprazole 40 Mg Tablet PO 40 mg DAILY VAIBHAV Administration Perflutren Lipid Microsphere 0 ml 03/11/25 08:54 Perflutren Lipid Microspheres 1.5 Ml Vial Diluted To 10 Ml Total Volume IV PUSH 03/14/25 08:54 ONCE PRN adequate visualization Protocol Polyethylene Glycol 17 gm 03/07/25 21:00 03/12/25 20:32 Polyethylene Glycol 3350 17 Gm Powd.Pack PO 17 gm HS VAIBHAV Administration Simethicone 80 mg 03/06/25 08:15 Simethicone 80 Mg Tab.Chew PO Q6H PRN Abdominal Discomfort Sodium Bicarbonate 650 mg 03/11/25 09:00 03/13/25 10:12 Sodium Bicarbonate Tab 650 Mg Tablet PO 650 mg BID VAIBHAV Administration Sodium Chloride 1 applic 03/06/25 09:00 03/13/25 10:13 Sodium Chloride 5% Ophth Oint 3.5 Gm Tube EACH EYE Not Given QID VAIBHAV Sodium Chloride 1 drop 03/09/25 21:00 03/13/25 10:13 Sodium Chloride 2% Op Soln 15 Ml Btl EACH EYE 1 drop Q12HR VAIBHAV Administration Radiology Results: ITS Impressions Head CT 03/05/25 21:31 Impression: No acute intracranial hemorrhage or suspicious mass effect. No cross-sectional imaging evidence to suggest the presence of intracranial abscess formation, as detailed above. Renal Ultrasound 03/10/25 19:19 Impression: 1: Bilateral renal cysts. Stable left renal cyst measuring 7.5 cm with rim calcification, likely benign given the lack of interval change from CT dated 08/07/2022. Chest X-Ray 03/11/25 08:12 Impression: 1: Interval progression of bilateral airspace disease, edema versus pneumonia. Clinically correlate. Labs Labs: Laboratory Tests 03/13/25 04:26 03/13/25 04:26 Calcium 8.0 L Phosphorus 4.0 Magnesium 1.9 Total Bilirubin 0.4 AST 37 ALT 62 H Alkaline Phosphatase 147 H Total Protein 5.7 L Albumin 2.7 L
--- NOTE | 2025-03-13 11:31 | PCNFU ---
Nutrition Follow-Up Complete: Inadequate oral intake related to altered mental status as evidenced by NPO Diet advancement - Goal is met Intakes >50% - Goal is being met Goal: Pt current nutrition is Heart healthy diet, minced & moist L5, Ensure + HP BID (350 kcal, 20 g protein) Nutrition recommendation: No new recommendations. Continue current nutrition care plan and orders. Agree with orders Last recorded weight is 138.3 kg. Bowel Motility: + BM 8.25 Labs Reviewed: Hgb 8.9, Hct 28.4, Alb 2.7, Na 133, BUN 64, Cre 1.86 Meds Noted: Lasix, Keppra Skin: No pressure injuries Additional Notes: Intakes are good, 100% intakes all meals. Continue current orders. Monitoring diet orders, weights, labs, mental status, output, plan of care Follow up in 5 days
--- NOTE | 2025-03-13 11:35 | WPDINFPN2 ---
Progress Note: A&P Assessment and Plan (1) Bacteremia: Code(s): R78.81 - Bacteremia Status: Acute (2) Coagulase negative Staphylococcus bacteremia: Code(s): R78.81 - Bacteremia; B95.7 - Other staphylococcus as the cause of diseases classified elsewhere Status: Acute (3) Enterococcal bacteremia: Code(s): R78.81 - Bacteremia; B95.2 - Enterococcus as the cause of diseases classified elsewhere Status: Acute (4) Rash: Code(s): R21 - Rash and other nonspecific skin eruption Status: Acute (5) Altered mental status: Qualifiers: Altered mental status type: delirium Qualified Code(s): R41.0 - Disorientation, unspecified Code(s): R41.82 - Altered mental status, unspecified Status: Acute (6) Seizure: Code(s): R56.9 - Unspecified convulsions Status: Acute (7) H/O colectomy: Code(s): Z90.49 - Acquired absence of other specified parts of digestive tract Status: Acute Plan # MR-Staph capitis positive blood cultures. -- 4/4 bottles but antibiogram shows resistance to Bactrim with one set, and susceptibility with the second, suggesting 2 distinct strains. Two distinct strains in a patient without lines or evidence of phlebitis at admission likely suggest blood culture contamination. -- recently with isolated Enterococcus faecalis (VRE ) bacteremia but currently without recurrence. -- transthoracic echocardiogram negative for vegetations. # Possible sepsis associated with bacteremia, if with true coagulase-negative Staphylococcus bacteremia. # Recent isolated Enterococcus faecalis (VRE) bacteremia # Altered mental status secondary to sepsis versus recurrent seizures versus postictal state. # Erythroderma, resolved. With eosinophilia consider allergic reaction. May be secondary to recent Unasyn. Linezolid also possible but less likely. Keppra is a new medication and might be associated but erythroderma resolving while still receiving Keppra. # Left lower lobe infiltrate seen now and during last hospitalization without radiographic worsening and without significant symptoms of pneumonia. Doubt active pneumonia at this time. # Right arm swelling. Plan: -- with absence of line or evidence of phlebitis his admission blood cultures likely contamination. -- 02/20/2025 2D echocardiogram without vegetation as workup for enterococcal bacteremia. Current 2D echocardiogram negative for vegetation and repeat blood cultures negative negative to date; consequently, would consider blood culture findings as contamination. Would discontinue daptomycin. now follow off of antibiotics. -- avoid penicillins given the possibility of Unasyn-associated dermatitis. This Consult was performed via telemedicine while I was in [place] and the patient was in [place], [place], via audio and visual HIPAA protected interface and with patient's /POA consent. Subjective Date/time seen: 03/13/25 11:35 Interval history: 03/09/2025: Afebrile and vital signs stable. Erythema has resolved. No further evidence of left arm cellulitis and fluid weeping has resolved. 03/10/2025: Afebrile and vital signs stable. More awake, alert, and interactive. No leukocytosis. 03/05 blood cultures Positive for 4 bottles methicillin-resistant Staphylococcus capitis. 03/09 blood cultures pending. 03/13/2025: Remains afebrile with vital signs stable. Complaining of increased right arm swelling and possible redness. Leukocytosis continues to improve. Kidney function also improving. Follow-up blood cultures remain negative. 03/11 2D echocardiogram without vegetations. Blood cultures 03/05: Positive for 4 bottles MR-Staph capitis. Blood cultures 03/09: Negative at 24 hours. Blood cultures 03/12: Pending Urine culture 03/05: Less than 10,000 colonies of mixed organism growth. Review of Systems Review of Systems: Resolution of pruritus But now complaining of increased right arm swelling. He denies significant cough, shortness of breath, or chest discomfort. All systems reviewed & are unremarkable except as noted in HPI and below Exam Narrative: Sitting in bed and appears comfortable. Awake, alert, and able to answer questions. Much more interactive. Diffuse erythroderma present on admission now resolved. Generalized anasarca. Left arm fluid weeping resolved. Now with increased swelling to right arm. Peripheral IV site without phlebitis. Normal respiratory effort. Without significant abdominal distention. Objective Data Vital Signs Vital Signs: Vital Signs - 24 hr 03/12/25 13:03 03/12/25 13:38 03/12/25 13:44 Temperature Pulse Rate 77 75 77 Respiratory Rate 16 16 Blood Pressure 133/46 L Pulse Oximetry 99 Oxygen Delivery Oxygen Flow Rate Fraction of Inspired Oxygen 03/12/25 14:00 03/12/25 15:24 03/12/25 16:00 Temperature 97.7 F Pulse Rate 75 83 77 Respiratory Rate 16 Blood Pressure 131/52 L Pulse Oximetry 97 Oxygen Delivery Oxygen Flow Rate Fraction of Inspired Oxygen 03/12/25 20:00 03/12/25 20:00 03/12/25 20:04 Temperature Pulse Rate 83 83 82 Respiratory Rate 20 20 Blood Pressure Pulse Oximetry 100 Oxygen Delivery Room Air Oxygen Flow Rate Fraction of Inspired Oxygen 21 03/12/25 20:05 03/12/25 20:06 03/12/25 20:13 Temperature 97.5 F L Pulse Rate 82 78 83 Respiratory Rate 20 12 20 Blood Pressure 125/45 L Pulse Oximetry 95 100 Oxygen Delivery Room Air Oxygen Flow Rate Fraction of Inspired Oxygen 21 03/13/25 00:00 03/13/25 04:00 03/13/25 05:13 Temperature 97.3 F L Pulse Rate 85 69 77 Respiratory Rate 12 Blood Pressure 136/46 L Pulse Oximetry 98 Oxygen Delivery Oxygen Flow Rate Fraction of Inspired Oxygen 03/13/25 07:43 03/13/25 07:49 03/13/25 07:49 Temperature Pulse Rate 82 Respiratory Rate 18 Blood Pressure Pulse Oximetry 98 96 Oxygen Delivery Nasal Cannula Room Air Oxygen Flow Rate 1 Fraction of Inspired Oxygen 03/13/25 08:00 03/13/25 08:00 03/13/25 08:52 Temperature Pulse Rate 82 89 Respiratory Rate 18 Blood Pressure Pulse Oximetry 92 Oxygen Delivery Room Air Oxygen Flow Rate Fraction of Inspired Oxygen Intake/Output Intake/Output: Intake & Output 03/10/25 03/11/25 03/12/25 03/13/25 23:59 23:59 23:59 23:59 Intake Total 2507.0 2240 1000 640 Output Total 1950 4150 3700 1400 Balance 557.0 -1910 -2700 -760 Meds/Results Medications: Active Medications Generic Name Dose Route Start Last Admin Trade Name Freq PRN Reason Stop Dose Admin Acetaminophen 650 mg 03/05/25 23:48 03/07/25 19:48 Acetaminophen 325 Mg Tablet PO 650 mg Q4H PRN Administration Mild Pain (1-3) or Fever Apixaban 5 mg 03/07/25 21:00 03/10/25 08:40 Apixaban 5 Mg Tablet PO 5 mg On Hold: 03/10/25 12:38 Q12HR VAIBHAV Administration Diclofenac Sodium 1 applic 03/07/25 21:00 03/13/25 10:10 Diclofenac Sodium 1% 100 Gm Gel (*Bkc) TOPICAL Not Given Q12HR VAIBHAV Diltiazem HCl 30 mg 03/07/25 14:00 03/13/25 06:06 Diltiazem Hcl 30 Mg Tablet PO 30 mg Q8HR VAIBHAV Administration Diphenhydramine HCl 25 mg 03/07/25 08:21 03/08/25 21:10 Diphenhydramine Hcl Inj 50 Mg/Ml Vial IV PUSH 25 mg Q6HR PRN Administration Itching Fluticasone Propionate 2 spray 03/06/25 09:00 03/13/25 10:10 Fluticasone Propionate 0.05% Na Spr 16 Gm Btl (*Bkc) NASAL 2 spray DAILY VAIBHAV Administration Furosemide 40 mg 03/06/25 09:00 03/10/25 08:40 Furosemide 40 Mg Tablet PO 40 mg On Hold: 03/11/25 07:30 DAILY VAIBHAV Administration Hydrocortisone 1 applic 03/07/25 09:55 03/13/25 10:10 Hydrocortisone 1% 30 Gm Cream TOPICAL Not Given Q12HR ON LICENSE OF [facility] Hydroxyzine HCl 25 mg 03/08/25 00:55 03/10/25 21:16 Hydroxyzine Hcl 25 Mg Tablet PO 25 mg Q8H PRN Administration Itching Daptomycin 800 mg/ Sodium 50 mls @ 100 mls/hr 03/08/25 13:00 03/13/25 10:10 Chloride IVPB 100 mls/hr DAILY ON LICENSE OF [facility] Administration Ipratropium [place] 0.5 mg 03/06/25 09:00 03/13/25 07:46 Ipratropium Br 0.02% Inh Soln 0.5 Mg/2.5 Ml Vial INHALATION 0.5 mg TIDRT VAIBHAV Administration Levetiracetam 1,500 mg 03/13/25 09:00 03/13/25 10:11 Levetiracetam 500 Mg Tablet PO 1,500 mg Q12HR VAIBHAV Administration Levothyroxine Sodium 25 mcg 03/07/25 06:30 03/13/25 06:06 Levothyroxine Sodium 25 Mcg Tablet PO 25 mcg DAILY@0630 VAIBHAV Administration Lidocaine 2 patch 03/07/25 09:00 03/13/25 10:12 Lidocaine 5% Patch TRANSDERM 2 patch DAILY VAIBHAV Administration Loratadine 10 mg 03/07/25 09:55 03/13/25 10:12 Loratadine 10 Mg Tablet PO 10 mg QAM VAIBHAV Administration Lorazepam 2 mg 03/09/25 11:25 Lorazepam (*Crx) 1 Mg Tablet BY MOUTH Q6H PRN seizures Montelukast Sodium 10 mg 03/06/25 21:00 03/12/25 20:32 Montelukast Sodium 10 Mg Tablet PO 10 mg QHS VAIBHAV Administration Ondansetron HCl 4 mg 03/05/25 23:48 Ondansetron Inj 4 Mg/2 Ml Vial IV PUSH Q4H PRN Nausea Pantoprazole Sodium 40 mg 03/06/25 09:00 03/13/25 10:12 Pantoprazole 40 Mg Tablet PO 40 mg DAILY VAIBHAV Administration Perflutren Lipid Microsphere 0 ml 03/11/25 08:54 Perflutren Lipid Microspheres 1.5 Ml Vial Diluted To 10 Ml Total Volume IV PUSH 03/14/25 08:54 ONCE PRN adequate visualization Protocol Polyethylene Glycol 17 gm 03/07/25 21:00 03/12/25 20:32 Polyethylene Glycol 3350 17 Gm Powd.Pack PO 17 gm HS VAIBHAV Administration Simethicone 80 mg 03/06/25 08:15 Simethicone 80 Mg Tab.Chew PO Q6H PRN Abdominal Discomfort Sodium Bicarbonate 650 mg 03/11/25 09:00 03/13/25 10:12 Sodium Bicarbonate Tab 650 Mg Tablet PO 650 mg BID VAIBHAV Administration Sodium Chloride 1 applic 03/06/25 09:00 03/13/25 10:13 Sodium Chloride 5% Ophth Oint 3.5 Gm Tube EACH EYE Not Given QID VAIBHAV Sodium Chloride 1 drop 03/09/25 21:00 03/13/25 10:13 Sodium Chloride 2% Op Soln 15 Ml Btl EACH EYE 1 drop Q12HR VAIBHAV Administration Radiology Results: ITS Impressions Head CT 03/05/25 21:31 Impression: No acute intracranial hemorrhage or suspicious mass effect. No cross-sectional imaging evidence to suggest the presence of intracranial abscess formation, as detailed above. Renal Ultrasound 03/10/25 19:19 Impression: 1: Bilateral renal cysts. Stable left renal cyst measuring 7.5 cm with rim calcification, likely benign given the lack of interval change from CT dated 08/07/2022. Chest X-Ray 03/11/25 08:12 Impression: 1: Interval progression of bilateral airspace disease, edema versus pneumonia. Clinically correlate. Labs Labs: Laboratory Results - last 24 hr 03/12/25 03/12/25 03/13/25 15:17 15:22 04:26 WBC 10.9 H RBC 3.11 L Hgb 8.9 L Hct 28.4 L MCV 91.3 MCH 28.6 MCHC 31.3 L RDW 16.7 H Plt Count 213 MPV 10.0 Immature Gran % (Auto) Not Reportable Neut % (Auto) Not Reportable Lymph % (Auto) Not Reportable [place] % (Auto) Not Reportable Eos % (Auto) Not Reportable Baso % (Auto) Not Reportable Lymph # (Auto) Not Reportable [place] # (Auto) Not Reportable Eos # (Auto) Not Reportable Baso # (Auto) Not Reportable Abs Immat Gran (auto) Not Reportable Absolute Neuts (auto) Not Reportable Absolute Nucleated RBC Not Reportable Total Counted 100 Neutrophils % (Manual) 56 Band Neutrophils % 1 Lymphocytes % (Manual) 21.0 Monocytes % (Manual) 3 Eosinophils % (Manual) 18 H Basophils % (Manual) 1 Nucleated RBC % Not Reportable Abs Neuts (Manual) 6.21 Abs Lymphs (Manual) 2.28 Abs Monocytes (Manual) 0.32 Absolute Eos (Manual) 1.96 H Abs Basophils (Manual) 0.10 Smudge Cells Present Platelet Estimate Adequate Clumped Platelets Present % Immature Plt Fraction 2.0 Hypochromasia 1+ Poikilocytosis 1+ Anisocytosis 1+ Microcytosis 1+ Ovalocytes 1+ Schistocytes None seen Sodium 132 L 133 L Potassium 4.8 5.0 Chloride 106 105 Carbon Dioxide 18 L 20 L Anion Gap 8 8 BUN 66 H 64 H Creatinine 1.95 H 1.86 H Estim Creat Clear Calc 43 46 Estimated GFR 34 L 36 L Glucose 111 H 79 Calcium 8.4 8.0 L Phosphorus 4.0 Magnesium 1.7 1.9 Total Bilirubin 0.4 AST 37 ALT 62 H Alkaline Phosphatase 147 H NT-Pro-B Natriuret Pep 30575 H Total Protein 5.7 L Albumin 2.7 L
--- NOTE | 2025-03-13 12:01 | PM.IMPN ---
Progress Note: A&P Assessment and Plan (1) Witnessed seizure-like activity: Code(s): R56.9 - Unspecified convulsions Status: Acute (2) Aspiration pneumonia of left lower lobe: Qualifiers: Aspiration pneumonia type: unspecified Qualified Code(s): J69.0 - Pneumonitis due to inhalation of food and vomit Code(s): J69.0 - Pneumonitis due to inhalation of food and vomit Status: Acute (3) Abnormal finding on urinalysis: Code(s): R82.90 - Unspecified abnormal findings in urine Status: Acute Plan Seizure, unwitnessed Keppra 1500mg bid Neurology eval and recommendation noted Seizure precaution Accu-Cheks Ativan 2 mg IV p.r.n. q.6 hours for seizures Neurology following Aspiration pneumonia ruled out ID evaluated and noted no lung finding on chest xray Levaquin and Flagyl discontinued per ID monitor Reviewed chest X-Ray Allergic reaction to Unasyn Itching and redness markedly improved today with dicontinuing Unasyn yesterday Continue Levaquin and Flagyl, Vanc added s/p Claritin and prednisone ID following Recent VRE bacteremia Continue Daptomycin repeat blood culture showed 4/4 bottles positive for Staph capitis but antibiogram shows resistance to Bactrim with one set, and susceptibility with the second, suggesting 2 distinct strains ID recommended ECHO and if negative and repeat blood culture negative would consider stopping Dpatomycin following repeat blood cultures ECHO showed EF 60-65% with diastolic dysfunction ID following Anemia Hb 8.9, rs/p 1 unit pRBC GI evaluation noted and no intervention indicated continue monitoring Acute renal failure Cr 1.86 from 2.35 K 5.0 from 5.8 s/p Zirconium Nephrology following monitor Chronic respiratory failure Continue nighttime oxygen, 2 liters at nighttime Baseline DVT prophylaxis on SCDs due to possible GI bleed Subjective Date/time seen: 03/13/25 12:01 Interval history: Comfortable at bedside still waiting on repeat blood culture results Review of Systems Review of Systems: Unobtainable due to the patient's mental status Exam Narrative: Weight 131.5 kg BMI 38.2 Const: Other: Chronically ill-appearing but no acute distress, somnolent, chronically debilitated, morbidly obese, generalized anasarca, lying on the ER stretcher with head of bed at 20? HENMT: Other: Mucous membranes are dry, crowded posterior oropharynx Eyes: Other: Pupils are equal and reactive but patient does not track movement around the room Neck: Other: Large neck circumference, no JVD, thyroid goiter palpable larger on the left than the right (confirmed by prior CT scan 03/01/2025) Resp: Other: Sonorous respirations, periods of apnea, decreased breath sounds bilaterally, no increased work of breathing Cardio: Other: Regular rate, regular rhythm, no JVD GI: Other: Obese, distended, soft, positive bowel sounds, ostomy in the right abdomen with good output with the bag filled with gas : Other: Pereira catheter in place with drainage of clear urine Skin: Other: Erythema increased warmth to the medial left upper arm, some mild erythema to the right forearm but no increased warmth, anasarca changes to all extremities but bilateral upper extremities worse than lower extremities chronic, dried flaking skin bilateral feet, no foot wounds, thick yellow toenails Neuro: Other: Lethargic, difficult to arouse, does not follow commands but is moving bilateral upper extremities equally Extrem: Other: Pitting edema bilateral upper extremities, patient has well-healed scar on the left foot consistent with history of prior left great toe amputation, waffle boots in place bilaterally Psych: Other: Somnolent, difficult to arouse otherwise unable to assess due to patient condition Objective Data Vital Signs Vital Signs: Vital Signs - 24 hr 03/12/25 13:03 03/12/25 13:38 03/12/25 13:44 Temperature Pulse Rate 77 75 77 Respiratory Rate 16 16 Blood Pressure 133/46 L Pulse Oximetry 99 Oxygen Delivery Oxygen Flow Rate Fraction of Inspired Oxygen 03/12/25 14:00 03/12/25 15:24 03/12/25 16:00 Temperature 97.7 F Pulse Rate 75 83 77 Respiratory Rate 16 Blood Pressure 131/52 L Pulse Oximetry 97 Oxygen Delivery Oxygen Flow Rate Fraction of Inspired Oxygen 03/12/25 20:00 03/12/25 20:00 03/12/25 20:04 Temperature Pulse Rate 83 83 82 Respiratory Rate 20 20 Blood Pressure Pulse Oximetry 100 Oxygen Delivery Room Air Oxygen Flow Rate Fraction of Inspired Oxygen 21 03/12/25 20:05 03/12/25 20:06 03/12/25 20:13 Temperature 97.5 F L Pulse Rate 82 78 83 Respiratory Rate 20 12 20 Blood Pressure 125/45 L Pulse Oximetry 95 100 Oxygen Delivery Room Air Oxygen Flow Rate Fraction of Inspired Oxygen 21 03/13/25 00:00 03/13/25 04:00 03/13/25 05:13 Temperature 97.3 F L Pulse Rate 85 69 77 Respiratory Rate 12 Blood Pressure 136/46 L Pulse Oximetry 98 Oxygen Delivery Oxygen Flow Rate Fraction of Inspired Oxygen 03/13/25 07:43 03/13/25 07:49 03/13/25 07:49 Temperature Pulse Rate 82 Respiratory Rate 18 Blood Pressure Pulse Oximetry 98 96 Oxygen Delivery Nasal Cannula Room Air Oxygen Flow Rate 1 Fraction of Inspired Oxygen 03/13/25 08:00 03/13/25 08:00 03/13/25 08:00 Temperature Pulse Rate 82 89 Respiratory Rate 18 Blood Pressure Pulse Oximetry Oxygen Delivery Room Air Oxygen Flow Rate Fraction of Inspired Oxygen 03/13/25 08:52 Temperature Pulse Rate Respiratory Rate Blood Pressure Pulse Oximetry 92 Oxygen Delivery Room Air Oxygen Flow Rate Fraction of Inspired Oxygen Intake/Output Intake/Output: Intake & Output 03/10/25 03/11/25 03/12/25 03/13/25 23:59 23:59 23:59 23:59 Intake Total 2507.0 2240 1000 640 Output Total 1950 4150 3700 1400 Balance 557.0 -1910 -2700 -760 Meds/Results Medications: Active Medications Generic Name Dose Route Start Last Admin Trade Name Freq PRN Reason Stop Dose Admin Acetaminophen 650 mg 03/05/25 23:48 03/07/25 19:48 Acetaminophen 325 Mg Tablet PO 650 mg Q4H PRN Administration Mild Pain (1-3) or Fever Apixaban 5 mg 03/07/25 21:00 03/10/25 08:40 Apixaban 5 Mg Tablet PO 5 mg On Hold: 03/10/25 12:38 Q12HR VAIBHAV Administration Diclofenac Sodium 1 applic 03/07/25 21:00 03/13/25 10:10 Diclofenac Sodium 1% 100 Gm Gel (*Bkc) TOPICAL Not Given Q12HR VAIBHAV Diltiazem HCl 30 mg 03/07/25 14:00 03/13/25 06:06 Diltiazem Hcl 30 Mg Tablet PO 30 mg Q8HR VAIBHAV Administration Diphenhydramine HCl 25 mg 03/07/25 08:21 03/08/25 21:10 Diphenhydramine Hcl Inj 50 Mg/Ml Vial IV PUSH 25 mg Q6HR PRN Administration Itching Fluticasone Propionate 2 spray 03/06/25 09:00 03/13/25 10:10 Fluticasone Propionate 0.05% Na Spr 16 Gm Btl (*Bkc) NASAL 2 spray DAILY VAIBHAV Administration Furosemide 40 mg 03/06/25 09:00 03/10/25 08:40 Furosemide 40 Mg Tablet PO 40 mg On Hold: 03/11/25 07:30 DAILY VAIBHAV Administration Hydrocortisone 1 applic 03/07/25 09:55 03/13/25 10:10 Hydrocortisone 1% 30 Gm Cream TOPICAL Not Given Q12HR VAIBHAV Hydroxyzine HCl 25 mg 03/08/25 00:55 03/10/25 21:16 Hydroxyzine Hcl 25 Mg Tablet PO 25 mg Q8H PRN Administration Itching Daptomycin 800 mg/ Sodium 50 mls @ 100 mls/hr 03/08/25 13:00 03/13/25 10:10 Chloride IVPB 100 mls/hr DAILY VAIBHAV Administration Ipratropium [place] 0.5 mg 03/06/25 09:00 03/13/25 07:46 Ipratropium Br 0.02% Inh Soln 0.5 Mg/2.5 Ml Vial INHALATION 0.5 mg TIDRT VAIBHAV Administration Levetiracetam 1,500 mg 03/13/25 09:00 03/13/25 10:11 Levetiracetam 500 Mg Tablet PO 1,500 mg Q12HR VAIBHAV Administration Levothyroxine Sodium 25 mcg 03/07/25 06:30 03/13/25 06:06 Levothyroxine Sodium 25 Mcg Tablet PO 25 mcg DAILY@0630 VAIBHAV Administration Lidocaine 2 patch 03/07/25 09:00 03/13/25 10:12 Lidocaine 5% Patch TRANSDERM 2 patch DAILY VAIBHAV Administration Loratadine 10 mg 03/07/25 09:55 03/13/25 10:12 Loratadine 10 Mg Tablet PO 10 mg QAM VAIBHAV Administration Lorazepam 2 mg 03/09/25 11:25 Lorazepam (*Crx) 1 Mg Tablet BY MOUTH Q6H PRN seizures Montelukast Sodium 10 mg 03/06/25 21:00 03/12/25 20:32 Montelukast Sodium 10 Mg Tablet PO 10 mg QHS VAIBHAV Administration Ondansetron HCl 4 mg 03/05/25 23:48 Ondansetron Inj 4 Mg/2 Ml Vial IV PUSH Q4H PRN Nausea Pantoprazole Sodium 40 mg 03/06/25 09:00 03/13/25 10:12 Pantoprazole 40 Mg Tablet PO 40 mg DAILY VAIBHAV Administration Perflutren Lipid Microsphere 0 ml 03/11/25 08:54 Perflutren Lipid Microspheres 1.5 Ml Vial Diluted To 10 Ml Total Volume IV PUSH 03/14/25 08:54 ONCE PRN adequate visualization Protocol Polyethylene Glycol 17 gm 03/07/25 21:00 03/12/25 20:32 Polyethylene Glycol 3350 17 Gm Powd.Pack PO 17 gm HS VAIBHAV Administration Simethicone 80 mg 03/06/25 08:15 Simethicone 80 Mg Tab.Chew PO Q6H PRN Abdominal Discomfort Sodium Bicarbonate 650 mg 03/11/25 09:00 03/13/25 10:12 Sodium Bicarbonate Tab 650 Mg Tablet PO 650 mg BID VAIBHAV Administration Sodium Chloride 1 applic 03/06/25 09:00 03/13/25 10:13 Sodium Chloride 5% Ophth Oint 3.5 Gm Tube EACH EYE Not Given QID VAIBHAV Sodium Chloride 1 drop 03/09/25 21:00 03/13/25 10:13 Sodium Chloride 2% Op Soln 15 Ml Btl EACH EYE 1 drop Q12HR VAIBHAV Administration Radiology Results: ITS Impressions Head CT 03/05/25 21:31 Impression: No acute intracranial hemorrhage or suspicious mass effect. No cross-sectional imaging evidence to suggest the presence of intracranial abscess formation, as detailed above. Renal Ultrasound 03/10/25 19:19 Impression: 1: Bilateral renal cysts. Stable left renal cyst measuring 7.5 cm with rim calcification, likely benign given the lack of interval change from CT dated 08/07/2022. Chest X-Ray 03/11/25 08:12 Impression: 1: Interval progression of bilateral airspace disease, edema versus pneumonia. Clinically correlate. Labs Labs: Laboratory Results - last 24 hr 03/12/25 03/12/25 03/13/25 15:17 15:22 04:26 WBC 10.9 H RBC 3.11 L Hgb 8.9 L Hct 28.4 L MCV 91.3 MCH 28.6 MCHC 31.3 L RDW 16.7 H Plt Count 213 MPV 10.0 Immature Gran % (Auto) Not Reportable Neut % (Auto) Not Reportable Lymph % (Auto) Not Reportable [place] % (Auto) Not Reportable Eos % (Auto) Not Reportable Baso % (Auto) Not Reportable Lymph # (Auto) Not Reportable [place] # (Auto) Not Reportable Eos # (Auto) Not Reportable Baso # (Auto) Not Reportable Abs Immat Gran (auto) Not Reportable Absolute Neuts (auto) Not Reportable Absolute Nucleated RBC Not Reportable Total Counted 100 Neutrophils % (Manual) 56 Band Neutrophils % 1 Lymphocytes % (Manual) 21.0 Monocytes % (Manual) 3 Eosinophils % (Manual) 18 H Basophils % (Manual) 1 Nucleated RBC % Not Reportable Abs Neuts (Manual) 6.21 Abs Lymphs (Manual) 2.28 Abs Monocytes (Manual) 0.32 Absolute Eos (Manual) 1.96 H Abs Basophils (Manual) 0.10 Smudge Cells Present Platelet Estimate Adequate Clumped Platelets Present % Immature Plt Fraction 2.0 Hypochromasia 1+ Poikilocytosis 1+ Anisocytosis 1+ Microcytosis 1+ Ovalocytes 1+ Schistocytes None seen Sodium 132 L 133 L Potassium 4.8 5.0 Chloride 106 105 Carbon Dioxide 18 L 20 L Anion Gap 8 8 BUN 66 H 64 H Creatinine 1.95 H 1.86 H Estim Creat Clear Calc 43 46 Estimated GFR 34 L 36 L Glucose 111 H 79 Calcium 8.4 8.0 L Phosphorus 4.0 Magnesium 1.7 1.9 Total Bilirubin 0.4 AST 37 ALT 62 H Alkaline Phosphatase 147 H NT-Pro-B Natriuret Pep 22065 H Total Protein 5.7 L Albumin 2.7 L Quality VTE Prophylaxis VTE prophylaxis: pharmacologic ordered (Continue home Eliquis.)
[2025-03-13] MEDS: MONTELUKAST SODIUM 10 MG TABLET PO (21:10)
[2025-03-13] MEDS: ACETAMINOPHEN 325 MG TABLET 650 MG PO (21:10)
[2025-03-14] VITALS (11 sets, daily range): BP systolic 119–138; BP diastolic 37–52; PULSE 71–103; RESP 16–20; TEMP 36.4–36.8; O2SAT 97–100
[2025-03-14 04:56] LABS: Hematocrit 27.0 % (42.0-52.0); Hemoglobin 8.5 g/dL (14.0-18.0); Immature Granulocyte Percent A 1.6 % (0-0.5); Lymphocytes Absolute Auto 1.71 K/mm3 (0.9-3.2); Mean Corpuscular HGB Conc 31.5 g/dl (32-36); Mean Corpuscular Hemoglobin 27.9 pg (26-34); Mean Corpuscular Volume 88.5 fl (80-100); Nucleated Red Blood Cells Absolute Auto 0.000 K/mm3 (0.0-0.012); Nucleated Red Blood Cells Perc 0.0 % (0.0-0.2); Platelet Count Result 181 k/mm3 (150-375); Red Blood Count 3.05 M/mm3 (4.6-6.20); White Blood Count 12.1 K/mm3 (4.5-10.0)
[2025-03-14 05:34] LABS: Alanine Aminotransferase 46 U/L (6-50); Albumin Level 2.5 g/dL (3.5-5.1); Alkaline Phosphatase 128 U/L (38-126); Anion Gap 4 mmol/L (4-12); Aspartate Amino Transferase 23 U/L (17-59); Bilirubin,Total 0.3 mg/dL (0.2-1.3); Blood Urea Nitrogen 55 mg/dL (9-20); Calcium 7.9 mg/dL (8.4-10.2); Carbon Dioxide 23 mmol/L (22-30); Chloride 106 mmol/L (98-107); Estimated CRCL calculation 52 ml/min; Estimated Glomerular Filt Rate 42; Glucose 85 mg/dL (65-110); Magnesium 1.6 mg/dL (1.6-2.3); Potassium 5.3 mmol/L (3.4-5.0); Sodium 133 mmol/L (137-145); Total Protein 5.4 g/dL (6.3-8.2)
[2025-03-14] MEDS: LEVOTHYROXINE SODIUM 25 MCG TABLET PO (05:46)
[2025-03-14] MEDS: SODIUM BICARBONATE TAB 650 MG TABLET PO (08:53)
[2025-03-14] MEDS: LORATADINE 10 MG TABLET PO (08:53)
[2025-03-14] MEDS: PANTOPRAZOLE 40 MG TABLET PO (08:53)
[2025-03-14] MEDS: LIDOCAINE 5% PATCH 2 PATCH TRANSDERM (08:53)
[2025-03-14] MEDS: FUROSEMIDE 40 MG TABLET PO (08:53)
[2025-03-14] MEDS: FLUTICASONE PROPIONATE 0.05% NA SPR 16 GM BTL (*BKC) 2 SPRAY NASAL (08:56)
[2025-03-14] MEDS: SODIUM CHLORIDE 2% OP SOLN 15 ML BTL 1 DROP EACH EYE (08:57)
[2025-03-14] MEDS: SODIUM ZIRCONIUM CYCLOSILICATE 10 GM POWD.PACK PO ×2 (09:00→17:14)
[2025-03-14] MEDS: HYDROCORTISONE 1% 30 GM CREAM 1 APPLIC TOPICAL (09:04)
[2025-03-14] MEDS: DICLOFENAC SODIUM 1% 100 GM GEL (*BKC) 1 APPLIC TOPICAL (09:04)
--- NOTE | 2025-03-14 10:04 | P.PNINF_ITS ---
Progress Note: A&P Assessment and Plan (1) Bacteremia: Code(s): R78.81 - Bacteremia Status: Acute (2) Coagulase negative Staphylococcus bacteremia: Code(s): R78.81 - Bacteremia; B95.7 - Other staphylococcus as the cause of diseases classified elsewhere Status: Acute (3) Enterococcal bacteremia: Code(s): R78.81 - Bacteremia; B95.2 - Enterococcus as the cause of diseases classified elsewhere Status: Acute (4) Rash: Code(s): R21 - Rash and other nonspecific skin eruption Status: Acute (5) Altered mental status: Qualifiers: Altered mental status type: delirium Qualified Code(s): R41.0 - Disorientation, unspecified Code(s): R41.82 - Altered mental status, unspecified Status: Acute (6) Seizure: Code(s): R56.9 - Unspecified convulsions Status: Acute (7) H/O colectomy: Code(s): Z90.49 - Acquired absence of other specified parts of digestive tract Status: Acute Plan # MR-Staph capitis positive blood cultures. -- 4/4 bottles but antibiogram shows resistance to Bactrim with one set, and susceptibility with the second, suggesting 2 distinct strains. Two distinct strains in a patient without lines or evidence of phlebitis at admission likely suggest blood culture contamination. -- recently with isolated Enterococcus faecalis (VRE ) bacteremia but currently without recurrence. -- transthoracic echocardiogram negative for vegetations. # Possible sepsis associated with bacteremia, if with true coagulase-negative Staphylococcus bacteremia , resolved. # Recent isolated Enterococcus faecalis (VRE) bacteremia. # Altered mental status secondary to sepsis versus recurrent seizures versus postictal state , resolved. # Erythroderma, resolved. --With eosinophilia consider allergic reaction. May be secondary to recent Unasyn. Linezolid also possible but less likely. Keppra is a new medication and might be associated but erythroderma resolving while still receiving Keppra. -- Eosinophilia which had resolved while on daptomycin and continued Keppra has now recurred 1 day after discontinuation of daptomycin. Continue to monitor in case this is related to ongoing and increased dosing of Keppra. # Left lower lobe infiltrate seen now and during last hospitalization without radiographic worsening and without significant symptoms of pneumonia. Doubt active pneumonia at this time. # Right arm swelling , improved. Plan: -- with absence of line or evidence of phlebitis his admission blood cultures likely contamination. -- 02/20/2025 2D echocardiogram without vegetation as workup for enterococcal bacteremia. Current 2D echocardiogram negative for vegetation and repeat blood cultures negative negative to date; consequently, would consider blood culture findings as contamination. Would discontinue daptomycin. Now follow off of antibiotics. -- avoid penicillins given the possibility of Unasyn-associated dermatitis. -- continue to monitor eosinophilia. Continue to monitor for recurrence of erythroderma while on Keppra. -- the ID service will now follow peripherally. Please call with questions or problems. This Consult was performed via telemedicine while I was in [place] and the patient was in [place], [place], via audio and visual HIPAA protected inte rface and with patient's /POA consent. Subjective Date/time seen: 03/14/25 10:04 Interval history: 03/09/2025: Afebrile and vital signs stable. Erythema has resolved. No further evidence of left arm cellulitis and fluid weeping has resolved. 03/10/2025: Afebrile and vital signs stable. More awake, alert, and interactive. No leukocytosis. 03/05 blood cultures Positive for 4 bottles methicillin-resistant Staphylococcus capitis. 03/09 blood cultures pending. 03/13/2025: Remains afebrile with vital signs stable. Complaining of increased right arm swelling and possible redness. Leukocytosis continues to improve. Kidney function also improving. Follow-up blood cultures remain negative. 03/11 2D echocardiogram without vegetations. 03/14/2025: Afebrile and vital signs stable. Low-grade leukocytosis. Right arm swelling seen yesterday has improved. Eosinophilia has recurred after discontinuation of antibiotics. Blood cultures 03/05: Positive for 4 bottles MR-Staph capitis. Blood cultures 03/09: Negative at 24 hours. Blood cultures 03/12: Pending Urine culture 03/05: Less than 10,000 colonies of mixed organism growth. Review of Systems Review of Systems: Resolution of pruritus. Right arm swelling and mild erythema seen yesterday now improved. He denies significant cough, shortness of breath, or chest discomfort. All systems reviewed & are unremarkable except as noted in HPI and below Exam Narrative: Sitting in bed and appears comfortable. Awake, alert, and able to answer questions. Much more interactive. Diffuse erythroderma present on admission now resolved. Generalized anasarca. Left arm fluid weeping resolved. Increased swelling to right arm seen yesterday is resolving. Normal respiratory effort. Without significant abdominal distention. Objective Data Vital Signs Vital Signs: Vital Signs - 24 hr 03/13/25 12:00 03/13/25 14:05 03/13/25 14:25 Temperature 97.2 F L Pulse Rate 77 87 88 Respiratory Rate 17 18 Blood Pressure 139/53 L Pulse Oximetry 98 Oxygen Delivery 03/13/25 14:33 03/13/25 15:46 03/13/25 16:00 Temperature Pulse Rate 91 82 86 Respiratory Rate 18 Blood Pressure 137/44 L Pulse Oximetry 98 Oxygen Delivery 03/13/25 19:35 03/13/25 19:39 03/13/25 19:41 Temperature Pulse Rate 96 96 Respiratory Rate 18 18 Blood Pressure Pulse Oximetry 96 Oxygen Delivery Room Air 03/13/25 20:00 03/13/25 20:09 03/14/25 00:00 Temperature 97.6 F Pulse Rate 90 90 74 Respiratory Rate 20 Blood Pressure 130/48 L Pulse Oximetry 98 Oxygen Delivery 03/14/25 03:46 03/14/25 04:00 03/14/25 07:45 Temperature 97.6 F 97.7 F Pulse Rate 71 74 86 Respiratory Rate 20 16 Blood Pressure 138/48 L 130/37 L Pulse Oximetry 100 97 Oxygen Delivery Intake/Output Intake/Output: Intake & Output 03/11/25 03/12/25 03/13/25 03/14/25 23:59 23:59 23:59 23:59 Intake Total 2240 1000 1240 390 Output Total 4150 3700 3600 5 Balance -1910 -2700 -2360 -7925 Meds/Results Medications: Active Medications Generic Name Dose Route Start Last Admin Trade Name Freq PRN Reason Stop Dose Admin Acetaminophen 650 mg 03/05/25 23:48 03/13/25 21:10 Acetaminophen 325 Mg Tablet PO 650 mg Q4H PRN Administration Mild Pain (1-3) or Fever Apixaban 5 mg 03/07/25 21:00 03/10/25 08:40 Apixaban 5 Mg Tablet PO 5 mg On Hold: 03/10/25 12:38 Q12HR VAIBHAV Administration Diclofenac Sodium 1 applic 03/07/25 21:00 03/14/25 09:04 Diclofenac Sodium 1% 100 Gm Gel (*Bkc) TOPICAL 1 applic Q12HR VAIBHAV Administration Diltiazem HCl 30 mg 03/07/25 14:00 03/14/25 05:46 Diltiazem Hcl 30 Mg Tablet PO 30 mg Q8HR VAIBHAV Administration Diphenhydramine HCl 25 mg 03/07/25 08:21 03/08/25 21:10 Diphenhydramine Hcl Inj 50 Mg/Ml Vial IV PUSH 25 mg Q6HR PRN Administration Itching Fluticasone Propionate 2 spray 03/06/25 09:00 03/14/25 08:56 Fluticasone Propionate 0.05% Na Spr 16 Gm Btl (*Bkc) NASAL 2 spray DAILY VAIBHAV Administration Furosemide 40 mg 03/06/25 09:00 03/14/25 08:53 Furosemide 40 Mg Tablet PO 40 mg DAILY VAIBHAV Administration Hydrocortisone 1 applic 03/07/25 09:55 03/14/25 09:04 Hydrocortisone 1% 30 Gm Cream TOPICAL 1 applic Q12HR VAIBHAV Administration Hydroxyzine HCl 25 mg 03/08/25 00:55 03/10/25 21:16 Hydroxyzine Hcl 25 Mg Tablet PO 25 mg Q8H PRN Administration Itching Ipratropium [place] 0.5 mg 03/06/25 09:00 03/14/25 08:31 Ipratropium Br 0.02% Inh Soln 0.5 Mg/2.5 Ml Vial INHALATION Not Given TIDRT [facility] Levetiracetam 1,500 mg 03/13/25 09:00 03/14/25 08:53 Levetiracetam 500 Mg Tablet PO 1,500 mg Q12HR VAIBHAV Administration Levothyroxine Sodium 25 mcg 03/07/25 06:30 03/14/25 05:46 Levothyroxine Sodium 25 Mcg Tablet PO 25 mcg DAILY@0630 VAIBHAV Administration Lidocaine 2 patch 03/07/25 09:00 03/14/25 08:53 Lidocaine 5% Patch TRANSDERM 2 patch DAILY VAIBHAV Administration Loratadine 10 mg 03/07/25 09:55 03/14/25 08:53 Loratadine 10 Mg Tablet PO 10 mg QAM VAIBHAV Administration Lorazepam 2 mg 03/09/25 11:25 Lorazepam (*Crx) 1 Mg Tablet BY MOUTH Q6H PRN seizures Montelukast Sodium 10 mg 03/06/25 21:00 03/13/25 21:10 Montelukast Sodium 10 Mg Tablet PO 10 mg QHS VAIBHAV Administration Ondansetron HCl 4 mg 03/05/25 23:48 Ondansetron Inj 4 Mg/2 Ml Vial IV PUSH Q4H PRN Nausea Pantoprazole Sodium 40 mg 03/06/25 09:00 03/14/25 08:53 Pantoprazole 40 Mg Tablet PO 40 mg DAILY VAIBHAV Administration Polyethylene Glycol 17 gm 03/07/25 21:00 03/13/25 21:13 Polyethylene Glycol 3350 17 Gm Powd.Pack PO Not Given HS VAIBHAV Simethicone 80 mg 03/06/25 08:15 Simethicone 80 Mg Tab.Chew PO Q6H PRN Abdominal Discomfort Sodium Bicarbonate 650 mg 03/11/25 09:00 03/14/25 08:53 Sodium Bicarbonate Tab 650 Mg Tablet PO 650 mg BID VAIBHAV Administration Sodium Chloride 1 applic 03/06/25 09:00 03/14/25 09:00 Sodium Chloride 5% Ophth Oint 3.5 Gm Tube EACH EYE Not Given QID VAIBHAV Sodium Chloride 1 drop 03/09/25 21:00 03/14/25 08:57 Sodium Chloride 2% Op Soln 15 Ml Btl EACH EYE 1 drop Q12HR VAIBHAV Administration Sodium Zirconium Cyclosilicate 10 gm 03/14/25 10:00 03/14/25 09:00 Sodium Zirconium Cyclosilicate 10 Gm Powd.Pack PO 03/14/25 18:01 10 gm BID@1000,1800 VAIBHAV Administration Radiology Results: ITS Impressions Head CT 03/05/25 21:31 Impression: No acute intracranial hemorrhage or suspicious mass effect. No cross-sectional imaging evidence to suggest the presence of intracranial abscess formation, as detailed above. Renal Ultrasound 03/10/25 19:19 Impression: 1: Bilateral renal cysts. Stable left renal cyst measuring 7.5 cm with rim calcification, likely benign given the lack of interval change from CT dated 08/07/2022. Chest X-Ray 03/11/25 08:12 Impression: 1: Interval progression of bilateral airspace disease, edema versus pneumonia. Clinically correlate. Labs Labs: Laboratory Results - last 24 hr 03/14/25 04:40 WBC 12.1 H RBC 3.05 L Hgb 8.5 L Hct 27.0 L MCV 88.5 MCH 27.9 MCHC 31.5 L RDW 16.9 H Plt Count 181 MPV 9.4 Immature Gran % (Auto) 1.6 H Neut % (Auto) 61.3 Lymph % (Auto) 14.1 L [place] % (Auto) 7.7 Eos % (Auto) 15.1 H Baso % (Auto) 0.2 Lymph # (Auto) 1.71 [place] # (Auto) 0.9 H Eos # (Auto) 1.8 H Baso # (Auto) 0.0 Abs Immat Gran (auto) 0.20 H Absolute Neuts (auto) 7.4 H Absolute Nucleated RBC 0.000 Nucleated RBC % 0.0 Sodium 133 L Potassium 5.3 H Chloride 106 Carbon Dioxide 23 Anion Gap 4 BUN 55 H Creatinine 1.61 H Estim Creat Clear Calc 52 Estimated GFR 42 L Glucose 85 Calcium 7.9 L Magnesium 1.6 Total Bilirubin 0.3 AST 23 ALT 46 Alkaline Phosphatase 128 H Total Protein 5.4 L Albumin 2.5 L
--- NOTE | 2025-03-14 11:12 | P.PNNP_ITS ---
Progress Note: A&P Assessment and Plan (1) Acute kidney injury: Code(s): N17.9 - Acute kidney failure, unspecified Status: Acute Assessment and Plan: * improving * as noted by trend of labs since admission * however, rise in creatinine noted on last day of previous admission: creatinine went from 1.25 --> 1.71mg/dL (from 03/02 --> 03/03) * creatinine on admission (03/05) was 1.81mg/dL * etiology not entirely clear but several possibilities: * infection (bacteremia +/- pneumonia) * prerenal factors * possibly AIN (suspected allergic reaction to antibiotics with erythroderma + eosinophilia); but already on steroids * contrast exposure (contrast CT on 03/01) * anemia * other(?) * evaluation to date: * renal u/s without obstruction * urine electrolytes non-prerenal * urine eosinophils negative * CPK low * moderate proteinuria * resume oral lasix * lokelma for elevated K+ * d/c sodium bicarbonate tabs * follow trend of repeat labs and UOP (2) Stage 3 chronic kidney disease: Code(s): N18.30 - Chronic kidney disease, stage 3 unspecified Status: Chronic Assessment and Plan: * baseline creatinine had been running ~ 1.4 - 1.7mg/dl in the last couple of years * HOWEVER, has been as high as 1.8 - 2.3mg/dl during some of his acute hospitalizations * this causes him to fluctuate between CKD stage 3A and stage 3B * his CKD is secondary to his hypertension, congestive heart failure, vascular disease, previous acute kidney injury/acute renal failure requiring dialysis, and 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) (3) Bacteremia: Code(s): R78.81 - Bacteremia Status: Acute Assessment and Plan: * blood cultures on this admission with Staph capitis * recent hospitalization with VRE bacteremia * Infectious Disease following with recommendations noted * antibiotics as outlined * repeat TTE noted (no evidence of vegetation) * follow repeat blood cultures: * 03/09 - no growth to date * 03/12 - pending (4) Altered mental status: Qualifiers: Altered mental status type: delirium Qualified Code(s): R41.0 - Disorientation, unspecified Code(s): R41.82 - Altered mental status, unspecified Status: Acute Assessment and Plan: * resolved * as noted on presentation * due to infection versus seizure versus other(?) * imaging/testing noted: * CT of head (this admission) negative * MRI of brain (last admission - on 03/01) negative * EEG (03/02) results reviewed * follow trend of mentation (5) Anemia: Code(s): D64.9 - Anemia, unspecified Status: Acute Assessment and Plan: * noted drop in H/H (on 03/10) * possibly partly related to underlying CKD * could be dilutional given recent IVFs * GI recommendations noted * PRBC transfusion per protocol * follow trend of H/H (6) Seizure: Code(s): R56.9 - Unspecified convulsions Status: Acute Assessment and Plan: * possible etiology of #4 * Neurology following with recommendations noted * previous EEG noted * on Keppra * seizure precautions (7) Erythroderma: Code(s): L53.9 - Erythematous condition, unspecified Status: Acute Assessment and Plan: * resolving * s/p prednisone therapy and claritin * remains on benadryl and steroid cream * suspect secondary to allergic reaction (from antibiotics or some other medication) * continue supportive therapy (8) Paroxysmal atrial fibrillation: Code(s): I48.0 - Paroxysmal atrial fibrillation Status: Acute Assessment and Plan: * rate control strategy * on diltiazem * on anticoagulation (Eliquis) Will continue to follow. L Subjective Date/time seen: 03/14/25 11:12 Interval history: Follow-up for acute kidney injury/acute renal failure on chronic kidney disease. No apparent distress noted at the time of my visit; renal function/creatinine contines to improve; no other issues/events overnight or earlier this monring; overall, feels reasonably well when seen. Exam 2 Narrative: General: Large WD/WN male in NAD Heart: RRR, normal S1 and S2; no rub Lungs: decreased at bases Abdomen: soft, nontender, nondistended, positive bowel sounds; + colostomy Extremities: no cyanosis or clubbing; 1+ edema (UE > LE) Skin: warm and intact Objective Data Vital Signs Vital Signs: Vital Signs Temp Pulse Resp BP Pulse Ox O2 Del Method 03/14/25 08:00 Room Air 03/14/25 07:45 97.7 F 86 16 130/37 L 97 03/14/25 04:00 74 03/14/25 03:46 97.6 F 71 20 138/48 L 100 03/14/25 00:00 74 03/13/25 20:09 97.6 F 90 20 130/48 L 98 03/13/25 20:00 90 03/13/25 19:41 96 18 03/13/25 19:39 96 Room Air 03/13/25 19:35 96 18 03/13/25 16:00 86 03/13/25 15:46 82 137/44 L 98 03/13/25 14:33 91 18 03/13/25 14:25 88 18 03/13/25 14:05 97.2 F L 87 17 139/53 L 98 Intake/Output Intake/Output: Intake & Output 03/11/25 03/12/25 03/13/25 03/14/25 23:59 23:59 23:59 23:59 Intake Total 2240 1000 1240 1290 Output Total 4150 3700 3600 3275 [facility] -[phone] Meds/Results Medications: Active Medications Generic Name Dose Route Start Last Admin Trade Name Freq PRN Reason Stop Dose Admin Acetaminophen 650 mg 03/05/25 23:48 03/13/25 21:10 Acetaminophen 325 Mg Tablet PO 650 mg Q4H PRN Administration Mild Pain (1-3) or Fever Apixaban 5 mg 03/07/25 21:00 03/10/25 08:40 Apixaban 5 Mg Tablet PO 5 mg On Hold: 03/10/25 12:38 Q12HR VAIBHAV Administration Diclofenac Sodium 1 applic 03/07/25 21:00 03/14/25 09:04 Diclofenac Sodium 1% 100 Gm Gel (*Bk) TOPICAL 1 applic Q12HR VAIBHAV Administration Diltiazem HCl 30 mg 03/07/25 14:00 03/14/25 05:46 Diltiazem Hcl 30 Mg Tablet PO 30 mg Q8HR VAIBHAV Administration Diphenhydramine HCl 25 mg 03/07/25 08:21 03/08/25 21:10 Diphenhydramine Hcl Inj 50 Mg/Ml Vial IV PUSH 25 mg Q6HR PRN Administration Itching Fluticasone Propionate 2 spray 03/06/25 09:00 03/14/25 08:56 Fluticasone Propionate 0.05% Na Spr 16 Gm Btl (*Bkc) NASAL 2 spray DAILY VAIBHAV Administration Furosemide 40 mg 03/06/25 09:00 03/14/25 08:53 Furosemide 40 Mg Tablet PO 40 mg DAILY VAIBHAV Administration Hydrocortisone 1 applic 03/07/25 09:55 03/14/25 09:04 Hydrocortisone 1% 30 Gm Cream TOPICAL 1 applic Q12HR VAIBHAV Administration Hydroxyzine HCl 25 mg 03/08/25 00:55 03/10/25 21:16 Hydroxyzine Hcl 25 Mg Tablet PO 25 mg Q8H PRN Administration Itching Ipratropium Henderson 0.5 mg 03/06/25 09:00 03/14/25 08:31 Ipratropium Br 0.02% Inh Soln 0.5 Mg/2.5 Ml Vial INHALATION Not Given TIDRT VAIBHAV Levetiracetam 1,500 mg 03/13/25 09:00 03/14/25 08:53 Levetiracetam 500 Mg Tablet PO 1,500 mg Q12HR VAIBHAV Administration Levothyroxine Sodium 25 mcg 03/07/25 06:30 03/14/25 05:46 Levothyroxine Sodium 25 Mcg Tablet PO 25 mcg DAILY@0630 [facility] Administration Lidocaine 2 patch 03/07/25 09:00 03/14/25 08:53 Lidocaine 5% Patch TRANSDERM 2 patch DAILY VAIBHAV Administration Loratadine 10 mg 03/07/25 09:55 03/14/25 08:53 Loratadine 10 Mg Tablet PO 10 mg QAM VAIBHAV Administration Lorazepam 2 mg 03/09/25 11:25 Lorazepam (*Crx) 1 Mg Tablet BY MOUTH Q6H PRN seizures Montelukast Sodium 10 mg 03/06/25 21:00 03/13/25 21:10 Montelukast Sodium 10 Mg Tablet PO 10 mg QHS VAIBHAV Administration Ondansetron HCl 4 mg 03/05/25 23:48 Ondansetron Inj 4 Mg/2 Ml Vial IV PUSH Q4H PRN Nausea Pantoprazole Sodium 40 mg 03/06/25 09:00 03/14/25 08:53 Pantoprazole 40 Mg Tablet PO 40 mg DAILY VAIBHAV Administration Polyethylene Glycol 17 gm 03/07/25 21:00 03/13/25 21:13 Polyethylene Glycol 3350 17 Gm Powd.Pack PO Not Given HS VAIBHAV Simethicone 80 mg 03/06/25 08:15 Simethicone 80 Mg Tab.Chew PO Q6H PRN Abdominal Discomfort Sodium Bicarbonate 650 mg 03/11/25 09:00 03/14/25 08:53 Sodium Bicarbonate Tab 650 Mg Tablet PO 650 mg BID VAIBHAV Administration Sodium Chloride 1 applic 03/06/25 09:00 03/14/25 12:38 Sodium Chloride 5% Ophth Oint 3.5 Gm Tube EACH EYE Not Given QID VAIBHAV Sodium Chloride 1 drop 03/09/25 21:00 03/14/25 08:57 Sodium Chloride 2% Op Soln 15 Ml Btl EACH EYE 1 drop Q12HR VAIBHAV Administration Sodium Zirconium Cyclosilicate 10 gm 03/14/25 10:00 03/14/25 09:00 Sodium Zirconium Cyclosilicate 10 Gm Powd.Pack PO 03/14/25 18:01 10 gm BID@1000,1800 VAIBHAV Administration Radiology Results: ITS Impressions Head CT 03/05/25 21:31 Impression: No acute intracranial hemorrhage or suspicious mass effect. No cross-sectional imaging evidence to suggest the presence of intracranial abscess formation, as detailed above. Renal Ultrasound 03/10/25 19:19 Impression: 1: Bilateral renal cysts. Stable left renal cyst measuring 7.5 cm with rim calcification, likely benign given the lack of interval change from CT dated 08/07/2022. Chest X-Ray 03/11/25 08:12 Impression: 1: Interval progression of bilateral airspace disease, edema versus pneumonia. Clinically correlate. Labs Labs: Laboratory Tests 03/14/25 04:40 03/14/25 04:40 Calcium 7.9 L Magnesium 1.6 Total Bilirubin 0.3 AST 23 ALT 46 Alkaline Phosphatase 128 H Total Protein 5.4 L Albumin 2.5 L
--- NOTE | 2025-03-14 11:31 | PM.IMPN ---
Progress Note: A&P Assessment and Plan (1) Witnessed seizure-like activity: Code(s): R56.9 - Unspecified convulsions Status: Acute (2) Aspiration pneumonia of left lower lobe: Qualifiers: Aspiration pneumonia type: unspecified Qualified Code(s): J69.0 - Pneumonitis due to inhalation of food and vomit Code(s): J69.0 - Pneumonitis due to inhalation of food and vomit Status: Acute (3) Abnormal finding on urinalysis: Code(s): R82.90 - Unspecified abnormal findings in urine Status: Acute Plan Seizure, unwitnessed Keppra 1500mg bid Neurology eval and recommendation noted Seizure precaution Accu-Cheks Ativan 2 mg IV p.r.n. q.6 hours for seizures Neurology following Aspiration pneumonia ruled out ID evaluated and noted no lung finding on chest xray Levaquin and Flagyl discontinued per ID monitor Reviewed chest X-Ray Allergic reaction to Unasyn Itching and redness markedly improved today with dicontinuing Unasyn yesterday Continue Levaquin and Flagyl, Vanc added s/p Claritin and prednisone ID following Recent VRE bacteremia repeat blood culture showed 4/4 bottles positive for Staph capitis but antibiogram shows resistance to Bactrim with one set, and susceptibility with the second, suggesting 2 distinct strains ECHO no vegetations, but showed EF 60-65% with diastolic dysfunction Repeat blood cultures still negative ID held Daptomycin contingent on the above, monitor off Daptomycin, if no significant changes in the next couple of days, will start discharge planning ID following Anemia Hb 8.5, rs/p 1 unit pRBC GI evaluation noted and no intervention indicated continue monitoring Acute renal failure, resolved to baseline CKD (Baseline cr 1.4 to 1.7 per nephrology) Cr 1.61 from 2.35 K 5.3 from 5.8 s/p Zirconium Nephrology following monitor Chronic respiratory failure Continue nighttime oxygen, 2 liters at nighttime Baseline DVT prophylaxis on SCDs due to possible GI bleed Subjective Date/time seen: 03/14/25 11:31 Interval history: Comfortable at bedside ID eval and recs noted, stopped Daptomycin since repeat blood cultures are still negative We will monitor off Daptomycin, leukocytosis worsened this morning however we will continue monitoring Review of Systems Review of Systems: Unobtainable due to the patient's mental status Exam Narrative: Weight 131.5 kg BMI 38.2 Const: Other: Chronically ill-appearing but no acute distress, somnolent, chronically debilitated, morbidly obese, generalized anasarca, lying on the ER stretcher with head of bed at 20? HENMT: Other: Mucous membranes are dry, crowded posterior oropharynx Eyes: Other: Pupils are equal and reactive but patient does not track movement around the room Neck: Other: Large neck circumference, no JVD, thyroid goiter palpable larger on the left than the right (confirmed by prior CT scan 03/01/2025) Resp: Other: Sonorous respirations, periods of apnea, decreased breath sounds bilaterally, no increased work of breathing Cardio: Other: Regular rate, regular rhythm, no JVD GI: Other: Obese, distended, soft, positive bowel sounds, ostomy in the right abdomen with good output with the bag filled with gas : Other: Pereira catheter in place with drainage of clear urine Skin: Other: Erythema increased warmth to the medial left upper arm, some mild erythema to the right forearm but no increased warmth, anasarca changes to all extremities but bilateral upper extremities worse than lower extremities chronic, dried flaking skin bilateral feet, no foot wounds, thick yellow toenails Neuro: Other: Lethargic, difficult to arouse, does not follow commands but is moving bilateral upper extremities equally Extrem: Other: Pitting edema bilateral upper extremities, patient has well-healed scar on the left foot consistent with history of prior left great toe amputation, waffle boots in place bilaterally Psych: Other: Somnolent, difficult to arouse otherwise unable to assess due to patient condition Objective Data Vital Signs Vital Signs: Vital Signs - 24 hr 03/13/25 12:00 03/13/25 14:05 03/13/25 14:25 Temperature 97.2 F L Pulse Rate 77 87 88 Respiratory Rate 17 18 Blood Pressure 139/53 L Pulse Oximetry 98 Oxygen Delivery 03/13/25 14:33 03/13/25 15:46 03/13/25 16:00 Temperature Pulse Rate 91 82 86 Respiratory Rate 18 Blood Pressure 137/44 L Pulse Oximetry 98 Oxygen Delivery 03/13/25 19:35 03/13/25 19:39 03/13/25 19:41 Temperature Pulse Rate 96 96 Respiratory Rate 18 18 Blood Pressure Pulse Oximetry 96 Oxygen Delivery Room Air 03/13/25 20:00 03/13/25 20:09 03/14/25 00:00 Temperature 97.6 F Pulse Rate 90 90 74 Respiratory Rate 20 Blood Pressure 130/48 L Pulse Oximetry 98 Oxygen Delivery 03/14/25 03:46 03/14/25 04:00 03/14/25 07:45 Temperature 97.6 F 97.7 F Pulse Rate 71 74 86 Respiratory Rate 20 16 Blood Pressure 138/48 L 130/37 L Pulse Oximetry 100 97 Oxygen Delivery 03/14/25 08:00 Temperature Pulse Rate Respiratory Rate Blood Pressure Pulse Oximetry Oxygen Delivery Room Air Intake/Output Intake/Output: Intake & Output 03/11/25 03/12/25 03/13/25 03/14/25 23:59 23:59 23:59 23:59 Intake Total 2240 1000 1240 1290 Output Total 4150 3700 3600 2623 Balance -1910 -2700 -2360 -1335 Meds/Results Medications: Active Medications Generic Name Dose Route Start Last Admin Trade Name Freq PRN Reason Stop Dose Admin Acetaminophen 650 mg 03/05/25 23:48 03/13/25 21:10 Acetaminophen 325 Mg Tablet PO 650 mg Q4H PRN Administration Mild Pain (1-3) or Fever Apixaban 5 mg 03/07/25 21:00 03/10/25 08:40 Apixaban 5 Mg Tablet PO 5 mg On Hold: 03/10/25 12:38 Q12HR VAIBHAV Administration Diclofenac Sodium 1 applic 03/07/25 21:00 03/14/25 09:04 Diclofenac Sodium 1% 100 Gm Gel (*Bkc) TOPICAL 1 applic Q12HR VAIBHAV Administration Diltiazem HCl 30 mg 03/07/25 14:00 03/14/25 05:46 Diltiazem Hcl 30 Mg Tablet PO 30 mg Q8HR VAIBHAV Administration Diphenhydramine HCl 25 mg 03/07/25 08:21 03/08/25 21:10 Diphenhydramine Hcl Inj 50 Mg/Ml Vial IV PUSH 25 mg Q6HR PRN Administration Itching Fluticasone Propionate 2 spray 03/06/25 09:00 03/14/25 08:56 Fluticasone Propionate 0.05% Na Spr 16 Gm Btl (*Bkc) NASAL 2 spray DAILY VAIBHAV Administration Furosemide 40 mg 03/06/25 09:00 03/14/25 08:53 Furosemide 40 Mg Tablet PO 40 mg DAILY VAIBHAV Administration Hydrocortisone 1 applic 03/07/25 09:55 03/14/25 09:04 Hydrocortisone 1% 30 Gm Cream TOPICAL 1 applic Q12HR VAIBHAV Administration Hydroxyzine HCl 25 mg 03/08/25 00:55 03/10/25 21:16 Hydroxyzine Hcl 25 Mg Tablet PO 25 mg Q8H PRN Administration Itching Ipratropium Arnold 0.5 mg 03/06/25 09:00 03/14/25 08:31 Ipratropium Br 0.02% Inh Soln 0.5 Mg/2.5 Ml Vial INHALATION Not Given TIDRT VAIBHAV Levetiracetam 1,500 mg 03/13/25 09:00 03/14/25 08:53 Levetiracetam 500 Mg Tablet PO 1,500 mg Q12HR VAIBHAV Administration Levothyroxine Sodium 25 mcg 03/07/25 06:30 03/14/25 05:46 Levothyroxine Sodium 25 Mcg Tablet PO 25 mcg DAILY@0630 [facility] Administration Lidocaine 2 patch 03/07/25 09:00 03/14/25 08:53 Lidocaine 5% Patch TRANSDERM 2 patch DAILY [facility] Administration Loratadine 10 mg 03/07/25 09:55 03/14/25 08:53 Loratadine 10 Mg Tablet PO 10 mg QAM [facility] Administration Lorazepam 2 mg 03/09/25 11:25 Lorazepam (*Crx) 1 Mg Tablet BY MOUTH Q6H PRN seizures Montelukast Sodium 10 mg 03/06/25 21:00 03/13/25 21:10 Montelukast Sodium 10 Mg Tablet PO 10 mg QHS [facility] Administration Ondansetron HCl 4 mg 03/05/25 23:48 Ondansetron Inj 4 Mg/2 Ml Vial IV PUSH Q4H PRN Nausea Pantoprazole Sodium 40 mg 03/06/25 09:00 03/14/25 08:53 Pantoprazole 40 Mg Tablet PO 40 mg DAILY VAIBHAV Administration Polyethylene Glycol 17 gm 03/07/25 21:00 03/13/25 21:13 Polyethylene Glycol 3350 17 Gm Powd.Pack PO Not Given HS VAIBHAV Simethicone 80 mg 03/06/25 08:15 Simethicone 80 Mg Tab.Chew PO Q6H PRN Abdominal Discomfort Sodium Bicarbonate 650 mg 03/11/25 09:00 03/14/25 08:53 Sodium Bicarbonate Tab 650 Mg Tablet PO 650 mg BID VAIBHAV Administration Sodium Chloride 1 applic 03/06/25 09:00 03/14/25 09:00 Sodium Chloride 5% Ophth Oint 3.5 Gm Tube EACH EYE Not Given QID VAIBHAV Sodium Chloride 1 drop 03/09/25 21:00 03/14/25 08:57 Sodium Chloride 2% Op Soln 15 Ml Btl EACH EYE 1 drop Q12HR VAIBHAV Administration Sodium Zirconium Cyclosilicate 10 gm 03/14/25 10:00 03/14/25 09:00 Sodium Zirconium Cyclosilicate 10 Gm Powd.Pack PO 03/14/25 18:01 10 gm BID@1000,1800 VAIBHAV Administration Radiology Results: ITS Impressions Head CT 03/05/25 21:31 Impression: No acute intracranial hemorrhage or suspicious mass effect. No cross-sectional imaging evidence to suggest the presence of intracranial abscess formation, as detailed above. Renal Ultrasound 03/10/25 19:19 Impression: 1: Bilateral renal cysts. Stable left renal cyst measuring 7.5 cm with rim calcification, likely benign given the lack of interval change from CT dated 08/07/2022. Chest X-Ray 03/11/25 08:12 Impression: 1: Interval progression of bilateral airspace disease, edema versus pneumonia. Clinically correlate. Labs Labs: Laboratory Results - last 24 hr 03/14/25 04:40 WBC 12.1 H RBC 3.05 L Hgb 8.5 L Hct 27.0 L MCV 88.5 MCH 27.9 MCHC 31.5 L RDW 16.9 H Plt Count 181 MPV 9.4 Immature Gran % (Auto) 1.6 H Neut % (Auto) 61.3 Lymph % (Auto) 14.1 L Boyd % (Auto) 7.7 Eos % (Auto) 15.1 H Baso % (Auto) 0.2 Lymph # (Auto) 1.71 Boyd # (Auto) 0.9 H Eos # (Auto) 1.8 H Baso # (Auto) 0.0 Abs Immat Gran (auto) 0.20 H Absolute Neuts (auto) 7.4 H Absolute Nucleated RBC 0.000 Nucleated RBC % 0.0 Sodium 133 L Potassium 5.3 H Chloride 106 Carbon Dioxide 23 Anion Gap 4 BUN 55 H Creatinine 1.61 H Estim Creat Clear Calc 52 Estimated GFR 42 L Glucose 85 Calcium 7.9 L Magnesium 1.6 Total Bilirubin 0.3 AST 23 ALT 46 Alkaline Phosphatase 128 H Total Protein 5.4 L Albumin 2.5 L Quality VTE Prophylaxis VTE prophylaxis: pharmacologic ordered (Continue home Eliquis.)
[2025-03-14] MEDS: IPRATROPIUM BR 0.02% INH SOLN 0.5 MG/2.5 ML VIAL INHALATION ×2 (13:25→20:49)
--- NOTE | 2025-03-14 15:55 | PC.NURSE ---
On 03/14/25, students, [Su Foster and Niurka Meek], provided care and completed [employer] documentation on this patient. I have reviewed the students' documentation and agree with the findings.
[2025-03-14] MEDS: ACETAMINOPHEN 325 MG TABLET 650 MG PO (20:30)
[2025-03-14] MEDS: MONTELUKAST SODIUM 10 MG TABLET PO (20:30)
[2025-03-15] VITALS (7 sets, daily range): BP systolic 111–127; BP diastolic 42–46; PULSE 83–97; RESP 16–20; TEMP 36.1–36.8; O2SAT 95–100
[2025-03-15] MEDS: LEVOTHYROXINE SODIUM 25 MCG TABLET PO (05:09)
[2025-03-15 05:27] LABS: Hematocrit 26.3 % (42.0-52.0); Hemoglobin 8.3 g/dL (14.0-18.0); Immature Granulocyte Percent A 1.3 % (0-0.5); Lymphocytes Absolute Auto 1.52 K/mm3 (0.9-3.2); Mean Corpuscular HGB Conc 31.6 g/dl (32-36); Mean Corpuscular Hemoglobin 28.0 pg (26-34); Mean Corpuscular Volume 88.9 fl (80-100); Nucleated Red Blood Cells Absolute Auto 0.000 K/mm3 (0.0-0.012); Nucleated Red Blood Cells Perc 0.0 % (0.0-0.2); Platelet Count Result 169 k/mm3 (150-375); Red Blood Count 2.96 M/mm3 (4.6-6.20); White Blood Count 12.8 K/mm3 (4.5-10.0)
[2025-03-15 05:49] LABS: Alanine Aminotransferase 36 U/L (6-50); Albumin Level 2.5 g/dL (3.5-5.1); Alkaline Phosphatase 120 U/L (38-126); Anion Gap 5 mmol/L (4-12); Aspartate Amino Transferase 21 U/L (17-59); Bilirubin,Total 0.4 mg/dL (0.2-1.3); Blood Urea Nitrogen 49 mg/dL (9-20); Calcium 7.7 mg/dL (8.4-10.2); Carbon Dioxide 24 mmol/L (22-30); Chloride 104 mmol/L (98-107); Estimated CRCL calculation 49 ml/min; Estimated Glomerular Filt Rate 39; Glucose 92 mg/dL (65-110); Magnesium 1.4 mg/dL (1.6-2.3); Potassium 4.8 mmol/L (3.4-5.0); Sodium 133 mmol/L (137-145); Total Protein 5.6 g/dL (6.3-8.2)
--- NOTE | 2025-03-15 07:59 | P.PNIM_ITS ---
Progress Note: A&P Assessment and Plan (1) Witnessed seizure-like activity: Code(s): R56.9 - Unspecified convulsions Status: Acute (2) Aspiration pneumonia of left lower lobe: Qualifiers: Aspiration pneumonia type: unspecified Qualified Code(s): J69.0 - Pneumonitis due to inhalation of food and vomit Code(s): J69.0 - Pneumonitis due to inhalation of food and vomit Status: Acute (3) Abnormal finding on urinalysis: Code(s): R82.90 - Unspecified abnormal findings in urine Status: Acute Plan Seizure, unwitnessed Keppra 1500mg bid Neurology eval and recommendation noted Seizure precaution Accu-Cheks Ativan 2 mg IV p.r.n. q.6 hours for seizures Neurology following Aspiration pneumonia ruled out ID evaluated and noted no lung finding on chest xray Levaquin and Flagyl discontinued per ID monitor Reviewed chest X-Ray Allergic reaction to Unasyn Itching and redness markedly improved today with dicontinuing Unasyn yesterday Continue Levaquin and Flagyl, Vanc added s/p Claritin and prednisone ID following Recent VRE bacteremia repeat blood culture showed 4/4 bottles positive for Staph capitis but antibiogram shows resistance to Bactrim with one set, and susceptibility with the second, suggesting 2 distinct strains ECHO no vegetations, but showed EF 60-65% with diastolic dysfunction Repeat blood cultures still negative ID held Daptomycin contingent on the above, monitor off Daptomycin, if no significant changes in the next couple of days, will start discharge planning ID following Anemia Hb 8.5, rs/p 1 unit pRBC GI evaluation noted and no intervention indicated continue monitoring Acute renal failure, resolved to baseline CKD (Baseline cr 1.4 to 1.7 per nephrology) Cr 1.61 from 2.35 K 5.3 from 5.8 s/p Zirconium Nephrology following monitor Chronic respiratory failure Continue nighttime oxygen, 2 liters at nighttime Baseline DVT prophylaxis on SCDs due to possible GI bleed Subjective Date/time seen: 03/15/25 07:59 Interval history: Patient is off antibiotic. Discussed with daughter who wants the patient to be get better and discharge . Patient has a multiple comorbid conditions and high risk for readmission. Review of Systems Review of Systems: Unobtainable due to the patient's mental status Exam 2 Narrative: Weight 131.5 kg BMI 38.2 Const: Other: Chronically ill-appearing but no acute distress, somnolent, chronically debilitated, morbidly obese, generalized anasarca, lying on the ER stretcher with head of bed at 20? HENMT: Other: Mucous membranes are dry, crowded posterior oropharynx Eyes: Other: Pupils are equal and reactive but patient does not track movement around the room Neck: Other: Large neck circumference, no JVD, thyroid goiter palpable larger on the left than the right (confirmed by prior CT scan 03/01/2025) Resp: Other: Sonorous respirations, periods of apnea, decreased breath sounds bilaterally, no increased work of breathing Cardio: Other: Regular rate, regular rhythm, no JVD GI: Other: Obese, distended, soft, positive bowel sounds, ostomy in the right abdomen with good output with the bag filled with gas : Other: Pereira catheter in place with drainage of clear urine Skin: Other: Erythema increased warmth to the medial left upper arm, some mild erythema to the right forearm but no increased warmth, anasarca changes to all extremities but bilateral upper extremities worse than lower extremities chronic, dried flaking skin bilateral feet, no foot wounds, thick yellow toenails Neuro: Other: Lethargic, difficult to arouse, does not follow commands but is moving bilateral upper extremities equally Extrem: Other: Pitting edema bilateral upper extremities, patient has well-healed scar on the left foot consistent with history of prior left great toe amputation, waffle boots in place bilaterally Psych: Other: Somnolent, difficult to arouse otherwise unable to assess due to patient condition Objective Data Vital Signs Vital Signs: Vital Signs - 24 hr 03/14/25 08:00 03/14/25 13:19 03/14/25 13:25 Temperature 98.2 F Pulse Rate 87 103 H Respiratory Rate 16 18 Blood Pressure 135/41 L Pulse Oximetry 98 Oxygen Delivery Room Air Oxygen Flow Rate 03/14/25 13:35 03/14/25 20:00 03/14/25 20:09 Temperature 97.7 F Pulse Rate 91 93 Respiratory Rate 18 17 Blood Pressure 119/52 L Pulse Oximetry 99 Oxygen Delivery Room Air Oxygen Flow Rate 03/14/25 20:51 03/14/25 20:52 03/14/25 20:58 Temperature Pulse Rate 92 90 Respiratory Rate 18 18 Blood Pressure Pulse Oximetry 99 Oxygen Delivery Nasal Cannula Oxygen Flow Rate 1 03/15/25 05:15 Temperature 98.3 F Pulse Rate 83 Respiratory Rate 20 Blood Pressure 111/46 L Pulse Oximetry 99 Oxygen Delivery Oxygen Flow Rate Intake/Output Intake/Output: Intake & Output 03/12/25 03/13/25 03/14/25 03/15/25 23:59 23:59 23:59 23:59 Intake Total 1000 1240 2910 200 Output Total 3700 3600 4075 900 [facility] -[id number] -[phone] Meds/Results Medications: Active Medications Generic Name Dose Route Start Last Admin Trade Name Freq PRN Reason Stop Dose Admin Acetaminophen 650 mg 03/05/25 23:48 03/14/25 20:30 Acetaminophen 325 Mg Tablet PO 650 mg Q4H PRN Administration Mild Pain (1-3) or Fever Apixaban 5 mg 03/07/25 21:00 03/10/25 08:40 Apixaban 5 Mg Tablet PO 5 mg On Hold: 03/10/25 12:38 Q12HR VAIBHAV Administration Diclofenac Sodium 1 applic 03/07/25 21:00 03/14/25 20:32 Diclofenac Sodium 1% 100 Gm Gel (*Bkc) TOPICAL Not Given Q12HR VAIBHAV Diltiazem HCl 30 mg 03/07/25 14:00 03/15/25 05:09 Diltiazem Hcl 30 Mg Tablet PO 30 mg Q8HR VAIBHAV Administration Diphenhydramine HCl 25 mg 03/07/25 08:21 03/08/25 21:10 Diphenhydramine Hcl Inj 50 Mg/Ml Vial IV PUSH 25 mg Q6HR PRN Administration Itching Fluticasone Propionate 2 spray 03/06/25 09:00 03/14/25 08:56 Fluticasone Propionate 0.05% Na Spr 16 Gm Btl (*Bkc) NASAL 2 spray DAILY VAIBHAV Administration Furosemide 40 mg 03/06/25 09:00 03/14/25 08:53 Furosemide 40 Mg Tablet PO 40 mg DAILY VAIBHAV Administration Hydrocortisone 1 applic 03/07/25 09:55 03/14/25 20:32 Hydrocortisone 1% 30 Gm Cream TOPICAL Not Given Q12HR VAIBHAV Hydroxyzine HCl 25 mg 03/08/25 00:55 03/10/25 21:16 Hydroxyzine Hcl 25 Mg Tablet PO 25 mg Q8H PRN Administration Itching Ipratropium [place] 0.5 mg 03/06/25 09:00 03/14/25 20:49 Ipratropium Br 0.02% Inh Soln 0.5 Mg/2.5 Ml Vial INHALATION 0.5 mg TIDRT VAIBHAV Administration Levetiracetam 1,500 mg 03/13/25 09:00 03/14/25 20:30 Levetiracetam 500 Mg Tablet PO 1,500 mg Q12HR REPLACED BY [facility] Administration Levothyroxine Sodium 25 mcg 03/07/25 06:30 03/15/25 05:09 Levothyroxine Sodium 25 Mcg Tablet PO 25 mcg DAILY@0630 REPLACED BY [facility] Administration Lidocaine 2 patch 03/07/25 09:00 03/14/25 08:53 Lidocaine 5% Patch TRANSDERM 2 patch DAILY REPLACED BY [facility] Administration Loratadine 10 mg 03/07/25 09:55 03/14/25 08:53 Loratadine 10 Mg Tablet PO 10 mg QAM REPLACED BY [facility] Administration Lorazepam 2 mg 03/09/25 11:25 Lorazepam (*Crx) 1 Mg Tablet BY MOUTH Q6H PRN seizures Montelukast Sodium 10 mg 03/06/25 21:00 03/14/25 20:30 Montelukast Sodium 10 Mg Tablet PO 10 mg QHS REPLACED BY [facility] Administration Ondansetron HCl 4 mg 03/05/25 23:48 Ondansetron Inj 4 Mg/2 Ml Vial IV PUSH Q4H PRN Nausea Pantoprazole Sodium 40 mg 03/06/25 09:00 03/14/25 08:53 Pantoprazole 40 Mg Tablet PO 40 mg DAILY REPLACED BY [facility] Administration Polyethylene Glycol 17 gm 03/07/25 21:00 03/14/25 20:32 Polyethylene Glycol 3350 17 Gm Powd.Pack PO Not Given HS VAIBHAV Simethicone 80 mg 03/06/25 08:15 Simethicone 80 Mg Tab.Chew PO Q6H PRN Abdominal Discomfort Sodium Chloride 1 applic 03/06/25 09:00 03/14/25 20:32 Sodium Chloride 5% Ophth Oint 3.5 Gm Tube EACH EYE Not Given QID VAIBHAV Sodium Chloride 1 drop 03/09/25 21:00 03/14/25 20:32 Sodium Chloride 2% Op Soln 15 Ml Btl EACH EYE Not Given Q12HR REPLACED BY [facility] Radiology Results: ITS Impressions Head CT 03/05/25 21:31 Impression: No acute intracranial hemorrhage or suspicious mass effect. No cross-sectional imaging evidence to suggest the presence of intracranial abscess formation, as detailed above. Renal Ultrasound 03/10/25 19:19 Impression: 1: Bilateral renal cysts. Stable left renal cyst measuring 7.5 cm with rim calcification, likely benign given the lack of interval change from CT dated 08/07/2022. Chest X-Ray 03/11/25 08:12 Impression: 1: Interval progression of bilateral airspace disease, edema versus pneumonia. Clinically correlate. Labs Labs: Laboratory Results - last 24 hr 03/15/25 04:42 WBC 12.8 H RBC 2.96 L Hgb 8.3 L Hct 26.3 L MCV 88.9 MCH 28.0 MCHC 31.6 L RDW 17.1 H Plt Count 169 MPV 9.7 Immature Gran % (Auto) 1.3 H Neut % (Auto) 66.9 Lymph % (Auto) 11.9 L [place] % (Auto) 6.9 Eos % (Auto) 12.8 H Baso % (Auto) 0.2 Lymph # (Auto) 1.52 [place] # (Auto) 0.9 H Eos # (Auto) 1.6 H Baso # (Auto) 0.0 Abs Immat Gran (auto) 0.16 H Absolute Neuts (auto) 8.6 H Absolute Nucleated RBC 0.000 Nucleated RBC % 0.0 Sodium 133 L Potassium 4.8 Chloride 104 Carbon Dioxide 24 Anion Gap 5 BUN 49 H Creatinine 1.72 H Estim Creat Clear Calc 49 Estimated GFR 39 L Glucose 92 Calcium 7.7 L Magnesium 1.4 L Total Bilirubin 0.4 AST 21 ALT 36 Alkaline Phosphatase 120 Total Protein 5.6 L Albumin 2.5 L Quality VTE Prophylaxis VTE prophylaxis: pharmacologic ordered (Continue home Eliquis.) Hospitalist MIPS Advance Care Plan I have confirmed that the patient's Advanced Care Plan is present, code status is documented, or surrogate decision maker is listed in patient medical record.: Yes Medication Reconciliation I have utilized all available resources to obtain, update and review the patients current medications (includes all prescriptions, OTC, herbals, cannabis, and nutritional supplements).: Yes
[2025-03-15] MEDS: FUROSEMIDE 40 MG TABLET PO (08:39)
[2025-03-15] MEDS: LORATADINE 10 MG TABLET PO (08:39)
[2025-03-15] MEDS: PANTOPRAZOLE 40 MG TABLET PO (08:39)
[2025-03-15] MEDS: SODIUM CHLORIDE 2% OP SOLN 15 ML BTL 1 DROP EACH EYE (08:41)
[2025-03-15] MEDS: LIDOCAINE 5% PATCH 2 PATCH TRANSDERM (08:41)
[2025-03-15] MEDS: FLUTICASONE PROPIONATE 0.05% NA SPR 16 GM BTL (*BKC) 2 SPRAY NASAL (08:41)
[2025-03-15] MEDS: DICLOFENAC SODIUM 1% 100 GM GEL (*BKC) 1 APPLIC TOPICAL (08:42)
[2025-03-15] MEDS: HYDROCORTISONE 1% 30 GM CREAM 1 APPLIC TOPICAL (08:42)
[2025-03-15] MEDS: IPRATROPIUM BR 0.02% INH SOLN 0.5 MG/2.5 ML VIAL INHALATION ×3 (09:02→19:50)
--- NOTE | 2025-03-15 14:03 | PM.PNNEP ---
Progress Note: A&P Assessment and Plan (1) Acute kidney injury: Code(s): N17.9 - Acute kidney failure, unspecified Status: Acute Assessment and Plan: improving (if not resolved as noted by trend of labs since admission however, rise in creatinine noted on last day of previous admission: creatinine went from 1.25 --> 1.71mg/dL (from 03/02 --> 03/03) creatinine on admission (03/05) was 1.81mg/dL etiology not entirely clear but several possibilities: infection (bacteremia +/- pneumonia) prerenal factors possibly AIN (suspected allergic reaction to antibiotics with erythroderma + eosinophilia); but already on steroids contrast exposure (contrast CT on 03/01) anemia other(?) evaluation to date: renal u/s without obstruction urine electrolytes non-prerenal urine eosinophils negative CPK low moderate proteinuria resume oral lasix lokelma for elevated K+ d/c sodium bicarbonate tabs follow trend of repeat labs and UOP (2) Stage 3 chronic kidney disease: Code(s): N18.30 - Chronic kidney disease, stage 3 unspecified Status: Chronic Assessment and Plan: baseline creatinine had been running ~ 1.4 - 1.7mg/dl in the last couple of years HOWEVER, has been as high as 1.8 - 2.3mg/dl during some of his acute hospitalizations this causes him to fluctuate between CKD stage 3A and stage 3B his CKD is secondary to his hypertension, congestive heart failure, vascular disease, previous acute kidney injury/acute renal failure requiring dialysis, and 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) (3) Bacteremia: Code(s): R78.81 - Bacteremia Status: Acute Assessment and Plan: blood cultures on this admission with Staph capitis recent hospitalization with VRE bacteremia Infectious Disease following with recommendations noted antibiotics discontinued (original cultures likely contamination) repeat TTE noted (no evidence of vegetation) follow repeat blood cultures: 03/09 - no growth to date 03/12 - no growth to date (4) Altered mental status: Qualifiers: Altered mental status type: delirium Qualified Code(s): R41.0 - Disorientation, unspecified Code(s): R41.82 - Altered mental status, unspecified Status: Acute Assessment and Plan: resolved as noted on presentation due to infection versus seizure versus other(?) imaging/testing noted: CT of head (this admission) negative MRI of brain (last admission - on 03/01) negative EEG (03/02) results reviewed follow trend of mentation (5) Anemia: Code(s): D64.9 - Anemia, unspecified Status: Acute Assessment and Plan: noted drop in H/H (on 03/10) possibly partly related to underlying CKD could be dilutional given recent IVFs GI recommendations noted PRBC transfusion per protocol follow trend of H/H (6) Seizure: Code(s): R56.9 - Unspecified convulsions Status: Acute Assessment and Plan: possible etiology of #4 Neurology following with recommendations noted previous EEG noted on Keppra seizure precautions (7) Erythroderma: Code(s): L53.9 - Erythematous condition, unspecified Status: Acute Assessment and Plan: resolved s/p prednisone therapy and claritin remains on benadryl and steroid cream suspect secondary to allergic reaction (from antibiotics or some other medication) continue supportive therapy (8) Paroxysmal atrial fibrillation: Code(s): I48.0 - Paroxysmal atrial fibrillation Status: Acute Assessment and Plan: rate control strategy on diltiazem on anticoagulation (Eliquis) Will continue to follow. Subjective Date/time seen: 03/15/25 14:03 Interval history: Follow-up for acute kidney injury/acute renal failure on chronic kidney disease. Renal function/creatinine relatively stable at this time; restarted on oral diuretic today; antibiotics discontinued per Infectious Disease recommendations; no apparent distress noted at this time; no issues/events overnight or earlier this morning. Exam Narrative: General: Large WD/WN male in NAD Heart: RRR, normal S1 and S2; no rub Lungs: decreased at bases Abdomen: soft, nontender, nondistended, positive bowel sounds; + colostomy Extremities: no cyanosis or clubbing; 1+ edema (UE > LE) Skin: no rash Objective Data Vital Signs Vital Signs: Vital Signs Temp Pulse Resp BP Pulse Ox O2 Del Method O2 Flow Rate 03/15/25 12:16 96.9 F L 88 16 127/42 L 100 03/15/25 09:15 90 18 03/15/25 09:06 95 Room Air 03/15/25 09:02 90 18 03/15/25 08:00 Room Air 03/15/25 05:15 98.3 F 83 20 111/46 L 99 03/14/25 20:58 90 18 03/14/25 20:52 92 18 03/14/25 20:51 99 Nasal Cannula 1 03/14/25 20:09 97.7 F 93 17 119/52 L 99 03/14/25 20:00 Room Air Intake/Output Intake/Output: Intake & Output 03/12/25 03/13/25 03/14/25 03/15/25 23:59 23:59 23:59 23:59 Intake Total 1000 1240 2910 1790 Output Total 3700 3600 [address] [facility] -2700 -2360 -1165 -860 Meds/Results Medications: Active Medications Generic Name Dose Route Start Last Admin Trade Name Freq PRN Reason Stop Dose Admin Acetaminophen 650 mg 03/05/25 23:48 03/14/25 20:30 Acetaminophen 325 Mg Tablet PO 650 mg Q4H PRN Administration Mild Pain (1-3) or Fever Apixaban 5 mg 03/07/25 21:00 03/10/25 08:40 Apixaban 5 Mg Tablet PO 5 mg On Hold: 03/10/25 12:38 Q12HR VAIBHAV Administration Diclofenac Sodium 1 applic 03/07/25 21:00 03/15/25 08:42 Diclofenac Sodium 1% 100 Gm Gel (*Bkc) TOPICAL 1 applic Q12HR VAIBHAV Administration Diltiazem HCl 30 mg 03/07/25 14:00 03/15/25 14:15 Diltiazem Hcl 30 Mg Tablet PO 30 mg Q8HR VAIBHAV Administration Diphenhydramine HCl 25 mg 03/07/25 08:21 03/08/25 21:10 Diphenhydramine Hcl Inj 50 Mg/Ml Vial IV PUSH 25 mg Q6HR PRN Administration Itching Fluticasone Propionate 2 spray 03/06/25 09:00 03/15/25 08:41 Fluticasone Propionate 0.05% Na Spr 16 Gm Btl (*Bkc) NASAL 2 spray DAILY VAIBHAV Administration Furosemide 40 mg 03/06/25 09:00 03/15/25 08:39 Furosemide 40 Mg Tablet PO 40 mg DAILY VAIBHAV Administration Hydrocortisone 1 applic 03/07/25 09:55 03/15/25 08:42 Hydrocortisone 1% 30 Gm Cream TOPICAL 1 applic Q12HR VAIBHAV Administration Hydroxyzine HCl 25 mg 03/08/25 00:55 03/10/25 21:16 Hydroxyzine Hcl 25 Mg Tablet PO 25 mg Q8H PRN Administration Itching Ipratropium [place] 0.5 mg 03/06/25 09:00 03/15/25 14:15 Ipratropium Br 0.02% Inh Soln 0.5 Mg/2.5 Ml Vial INHALATION 0.5 mg TIDRT VAIBHAV Administration Levetiracetam 1,500 mg 03/13/25 09:00 03/15/25 08:39 Levetiracetam 500 Mg Tablet PO 1,500 mg Q12HR VAIBHAV Administration Levothyroxine Sodium 25 mcg 03/07/25 06:30 03/15/25 05:09 Levothyroxine Sodium 25 Mcg Tablet PO 25 mcg DAILY@0630 [facility] Administration Lidocaine 2 patch 03/07/25 09:00 03/15/25 08:41 Lidocaine 5% Patch TRANSDERM 2 patch DAILY VAIBHAV Administration Loratadine 10 mg 03/07/25 09:55 03/15/25 08:39 Loratadine 10 Mg Tablet PO 10 mg QAM [facility] Administration Lorazepam 2 mg 03/09/25 11:25 Lorazepam (*Crx) 1 Mg Tablet BY MOUTH Q6H PRN seizures Montelukast Sodium 10 mg 03/06/25 21:00 03/14/25 20:30 Montelukast Sodium 10 Mg Tablet PO 10 mg QHS [facility] Administration Ondansetron HCl 4 mg 03/05/25 23:48 Ondansetron Inj 4 Mg/2 Ml Vial IV PUSH Q4H PRN Nausea Pantoprazole Sodium 40 mg 03/06/25 09:00 03/15/25 08:39 Pantoprazole 40 Mg Tablet PO 40 mg DAILY [facility] Administration Polyethylene Glycol 17 gm 03/07/25 21:00 03/14/25 20:32 Polyethylene Glycol 3350 17 Gm Powd.Pack PO Not Given HS VAIBHAV Simethicone 80 mg 03/06/25 08:15 Simethicone 80 Mg Tab.Chew PO Q6H PRN Abdominal Discomfort Sodium Chloride 1 applic 03/06/25 09:00 03/15/25 17:23 Sodium Chloride 5% Ophth Oint 3.5 Gm Tube EACH EYE Not Given QID VAIBHAV Sodium Chloride 1 drop 03/09/25 21:00 03/15/25 08:41 Sodium Chloride 2% Op Soln 15 Ml Btl EACH EYE 1 drop Q12HR VAIBHAV Administration Radiology Results: ITS Impressions Head CT 03/05/25 21:31 Impression: No acute intracranial hemorrhage or suspicious mass effect. No cross-sectional imaging evidence to suggest the presence of intracranial abscess formation, as detailed above. Renal Ultrasound 03/10/25 19:19 Impression: 1: Bilateral renal cysts. Stable left renal cyst measuring 7.5 cm with rim calcification, likely benign given the lack of interval change from CT dated 08/07/2022. Chest X-Ray 03/11/25 08:12 Impression: 1: Interval progression of bilateral airspace disease, edema versus pneumonia. Clinically correlate. Labs Labs: Laboratory Tests 03/15/25 04:42 03/15/25 04:42 Calcium 7.7 L Magnesium 1.4 L Total Bilirubin 0.4 AST 21 ALT 36 Alkaline Phosphatase 120 Total Protein 5.6 L Albumin 2.5 L Microbiology 03/12/25 08:39 Blood Blood Culture - Preliminary 03/12/25 08:31 Blood Blood Culture - Preliminary 03/09/25 03:54 Blood Blood Culture - Final 03/09/25 03:54 Blood Blood Culture - Final
[2025-03-15] MEDS: MONTELUKAST SODIUM 10 MG TABLET PO (20:29)
[2025-03-15] MEDS: ACETAMINOPHEN 325 MG TABLET 650 MG PO (20:29)
[2025-03-16] VITALS (12 sets, daily range): BP systolic 112–120; BP diastolic 41–55; PULSE 80–97; RESP 16–20; TEMP 36.1–36.6; O2SAT 95–98
[2025-03-16] MEDS: LEVOTHYROXINE SODIUM 25 MCG TABLET PO (05:21)
[2025-03-16 05:27] LABS: Hematocrit 25.3 % (42.0-52.0); Hemoglobin 8.0 g/dL (14.0-18.0); Mean Corpuscular HGB Conc 31.6 g/dl (32-36); Mean Corpuscular Hemoglobin 27.9 pg (26-34); Mean Corpuscular Volume 88.2 fl (80-100); Platelet Count Result 170 k/mm3 (150-375); Red Blood Count 2.87 M/mm3 (4.6-6.20); White Blood Count 13.0 K/mm3 (4.5-10.0)
[2025-03-16 05:40] LABS: Alanine Aminotransferase 28 U/L (6-50); Albumin Level 2.6 g/dL (3.5-5.1); Alkaline Phosphatase 125 U/L (38-126); Anion Gap 5 mmol/L (4-12); Aspartate Amino Transferase 18 U/L (17-59); Bilirubin,Total 0.4 mg/dL (0.2-1.3); Blood Urea Nitrogen 45 mg/dL (9-20); Calcium 7.7 mg/dL (8.4-10.2); Carbon Dioxide 25 mmol/L (22-30); Chloride 102 mmol/L (98-107); Estimated CRCL calculation 49 ml/min; Estimated Glomerular Filt Rate 40; Glucose 90 mg/dL (65-110); Potassium 4.7 mmol/L (3.4-5.0); Sodium 132 mmol/L (137-145); Total Protein 5.5 g/dL (6.3-8.2)
[2025-03-16] MEDS: FUROSEMIDE 40 MG TABLET PO (08:36)
[2025-03-16] MEDS: LIDOCAINE 5% PATCH 2 PATCH TRANSDERM (08:36)
[2025-03-16] MEDS: LORATADINE 10 MG TABLET PO (08:36)
[2025-03-16] MEDS: PANTOPRAZOLE 40 MG TABLET PO (08:36)
[2025-03-16] MEDS: SODIUM CHLORIDE 2% OP SOLN 15 ML BTL 1 DROP EACH EYE ×2 (08:37→21:01)
[2025-03-16] MEDS: DICLOFENAC SODIUM 1% 100 GM GEL (*BKC) 1 APPLIC TOPICAL (08:37)
[2025-03-16] MEDS: FLUTICASONE PROPIONATE 0.05% NA SPR 16 GM BTL (*BKC) 2 SPRAY NASAL (08:37)
[2025-03-16] MEDS: HYDROCORTISONE 1% 30 GM CREAM 1 APPLIC TOPICAL (08:37)
[2025-03-16] MEDS: IPRATROPIUM BR 0.02% INH SOLN 0.5 MG/2.5 ML VIAL INHALATION ×3 (09:00→20:42)
--- NOTE | 2025-03-16 09:28 | PCNFU ---
Nutrition Follow-Up Complete: Inadequate oral intake related to altered mental status as evidenced by NPO Diet advancement - Goal is met Intakes >50% - Goal is being met. Continue with same goal Goal: Pt current nutrition is Heart healthy, minced & moist L5, Ensure + HP BID (350 kcal, 20 g protein). Nutrition recommendation: No new recommendations. Continue current nutrition care plan and orders. Agree with orders Last recorded weight is 133.3 kg. Bowel Motility: +1 BM 03/16 Labs Reviewed: Hgb 8.0, HGct 25.3, Alb 2.6, GFR 40, BUN 45, Cre 1.69 Meds Noted: Lasix, Keppra Skin: No pressure injuries noted Additional Notes: Appetite is good, 80-100%. Continue current orders Monitoring diet orders, weights, labs, mental status, output, plan of care Follow up in 3 days
--- NOTE | 2025-03-16 10:51 | P.PNINF_ITS ---
Progress Note: A&P Assessment and Plan (1) Bacteremia: Code(s): R78.81 - Bacteremia Status: Acute (2) Coagulase negative Staphylococcus bacteremia: Code(s): R78.81 - Bacteremia; B95.7 - Other staphylococcus as the cause of diseases classified elsewhere Status: Acute (3) Enterococcal bacteremia: Code(s): R78.81 - Bacteremia; B95.2 - Enterococcus as the cause of diseases classified elsewhere Status: Acute (4) Rash: Code(s): R21 - Rash and other nonspecific skin eruption Status: Acute (5) Altered mental status: Qualifiers: Altered mental status type: delirium Qualified Code(s): R41.0 - Disorientation, unspecified Code(s): R41.82 - Altered mental status, unspecified Status: Acute (6) Seizure: Code(s): R56.9 - Unspecified convulsions Status: Acute (7) H/O colectomy: Code(s): Z90.49 - Acquired absence of other specified parts of digestive tract Status: Acute Plan # MR-Staph capitis positive blood cultures. -- 4/4 bottles but antibiogram shows resistance to Bactrim with one set, and susceptibility with the second, suggesting 2 distinct strains. Two distinct strains in a patient without lines or evidence of phlebitis at admission likely suggest blood culture contamination. -- recently with isolated Enterococcus faecalis (VRE ) bacteremia but currently without recurrence. -- transthoracic echocardiogram negative for vegetations. # Possible sepsis associated with bacteremia, if with true coagulase-negative Staphylococcus bacteremia , resolved. # Recent isolated Enterococcus faecalis (VRE) bacteremia. # Altered mental status secondary to sepsis versus recurrent seizures versus postictal state , resolved. # Erythroderma, resolved. --With eosinophilia consider allergic reaction. May be secondary to recent Unasyn. Linezolid also possible but less likely. Keppra is a new medication and might be associated but erythroderma resolving while still receiving Keppra. -- Eosinophilia which had resolved while on daptomycin and continued Keppra has now recurred 1 day after discontinuation of daptomycin. Continue to monitor in case this is related to ongoing and increased dosing of Keppra. # Left lower lobe infiltrate seen now and during last hospitalization without radiographic worsening and without significant symptoms of pneumonia. Doubt active pneumonia at this time. # Right arm swelling , improved. Plan: -- with absence of line or evidence of phlebitis his admission blood cultures likely contamination. -- 02/20/2025 2D echocardiogram without vegetation as workup for enterococcal bacteremia. Current 2D echocardiogram negative for vegetation and repeat blood cultures negative negative to date; consequently, would consider blood culture findings as contamination. Would discontinue daptomycin. Now follow off of antibiotics. -- avoid penicillins given the possibility of Unasyn-associated dermatitis. -- continue to monitor eosinophilia. Continue to monitor for recurrence of erythroderma while on Keppra. -- the ID service will now follow peripherally. Please call with questions or problems. This Consult was performed via telemedicine while I was in [place] and the patient was in [place], [place], via audio and visual HIPAA protected inte rface and with patient's /POA consent. Subjective Date/time seen: 03/16/25 10:51 Interval history: 03/09/2025: Afebrile and vital signs stable. Erythema has resolved. No further evidence of left arm cellulitis and fluid weeping has resolved. 03/10/2025: Afebrile and vital signs stable. More awake, alert, and interactive. No leukocytosis. 03/05 blood cultures Positive for 4 bottles methicillin-resistant Staphylococcus capitis. 03/09 blood cultures pending. 03/13/2025: Remains afebrile with vital signs stable. Complaining of increased right arm swelling and possible redness. Leukocytosis continues to improve. Kidney function also improving. Follow-up blood cultures remain negative. 03/11 2D echocardiogram without vegetations. 03/14/2025: Afebrile and vital signs stable. Low-grade leukocytosis. Right arm swelling seen yesterday has improved. Eosinophilia has recurred after discontinuation of antibiotics. 03/16/2025: Afebrile. Continued low-grade leukocytosis. No differential today to evaluate eosinophilia. Blood cultures 03/05: Positive for 4 bottles MR-Staph capitis. Blood cultures 03/09: Negative at 24 hours. Blood cultures 03/12: Pending Urine culture 03/05: Less than 10,000 colonies of mixed organism growth. Review of Systems Review of Systems: Resolution of pruritus. Right arm swelling and mild erythema seen yesterday now improved. He denies significant cough, shortness of breath, or chest disc omfort. All systems reviewed & are unremarkable except as noted in HPI and below Exam Narrative: Sitting in bed and appears comfortable. Awake, alert, and able to answer questions. Much more interactive. Diffuse erythroderma present on admission now resolved. Generalized anasarca. Left arm fluid weeping resolved. Increased swelling to right arm seen yesterday is resolving. Normal respiratory effort. Without significant abdominal distention. Objective Data Vital Signs Vital Signs: Vital Signs - 24 hr 03/15/25 14:16 03/15/25 14:16 03/15/25 19:50 Temperature 96.9 F L Pulse Rate 88 88 97 Respiratory Rate 16 18 20 Blood Pressure 127/42 L Pulse Oximetry 100 95 Oxygen Delivery Room Air Fraction of Inspired Oxygen 21 03/15/25 19:50 03/15/25 20:00 03/15/25 20:28 Temperature 98.1 F Pulse Rate 97 97 Respiratory Rate 20 20 Blood Pressure 113/43 L Pulse Oximetry 95 Oxygen Delivery Room Air Fraction of Inspired Oxygen 03/16/25 05:22 03/16/25 08:40 03/16/25 08:45 Temperature 97.4 F L Pulse Rate 80 95 Respiratory Rate 20 Blood Pressure 112/41 L 120/55 L Pulse Oximetry 95 Oxygen Delivery Room Air Fraction of Inspired Oxygen 03/16/25 09:00 03/16/25 09:03 03/16/25 09:06 Temperature Pulse Rate 97 97 91 Respiratory Rate 20 19 20 Blood Pressure Pulse Oximetry 95 Oxygen Delivery Room Air Fraction of Inspired Oxygen 21 Intake/Output Intake/Output: Intake & Output 03/13/25 03/14/25 03/15/25 03/16/25 23:59 23:59 23:59 23:59 Intake Total 1240 2910 1790 820 Output Total 3600 4075 3300 1050 [facility] -2360 -1165 -1510 -230 Meds/Results Medications: Active Medications Generic Name Dose Route Start Last Admin Trade Name Freq PRN Reason Stop Dose Admin Acetaminophen 650 mg 03/05/25 23:48 03/15/25 20:29 Acetaminophen 325 Mg Tablet PO 650 mg Q4H PRN Administration Mild Pain (1-3) or Fever Apixaban 5 mg 03/07/25 21:00 03/10/25 08:40 Apixaban 5 Mg Tablet PO 5 mg On Hold: 03/10/25 12:38 Q12HR VAIBHAV Administration Diclofenac Sodium 1 applic 03/07/25 21:00 03/16/25 08:37 Diclofenac Sodium 1% 100 Gm Gel (*Bkc) TOPICAL 1 applic Q12HR VAIBHAV Administration Diltiazem HCl 30 mg 03/07/25 14:00 03/16/25 05:21 Diltiazem Hcl 30 Mg Tablet PO 30 mg Q8HR VAIBHAV Administration Diphenhydramine HCl 25 mg 03/07/25 08:21 03/08/25 21:10 Diphenhydramine Hcl Inj 50 Mg/Ml Vial IV PUSH 25 mg Q6HR PRN Administration Itching Fluticasone Propionate 2 spray 03/06/25 09:00 03/16/25 08:37 Fluticasone Propionate 0.05% Na Spr 16 Gm Btl (*Bkc) NASAL 2 spray DAILY VAIBHAV Administration Furosemide 40 mg 03/06/25 09:00 03/16/25 08:36 Furosemide 40 Mg Tablet PO 40 mg DAILY VAIBHAV Administration Hydrocortisone 1 applic 03/07/25 09:55 03/16/25 08:37 Hydrocortisone 1% 30 Gm Cream TOPICAL 1 applic Q12HR VAIBHAV Administration Hydroxyzine HCl 25 mg 03/08/25 00:55 03/15/25 22:27 Hydroxyzine Hcl 25 Mg Tablet PO 25 mg Q8H PRN Administration Itching Ipratropium [place] 0.5 mg 03/06/25 09:00 03/16/25 09:00 Ipratropium Br 0.02% Inh Soln 0.5 Mg/2.5 Ml Vial INHALATION 0.5 mg TIDRT VAIBHAV Administration Levetiracetam 1,500 mg 03/13/25 09:00 03/16/25 08:36 Levetiracetam 500 Mg Tablet PO 1,500 mg Q12HR VAIBHAV Administration Levothyroxine Sodium 25 mcg 03/07/25 06:30 03/16/25 05:21 Levothyroxine Sodium 25 Mcg Tablet PO 25 mcg DAILY@0630 [facility] Administration Lidocaine 2 patch 03/07/25 09:00 03/16/25 08:36 Lidocaine 5% Patch TRANSDERM 2 patch DAILY VAIBHAV Administration Loratadine 10 mg 03/07/25 09:55 03/16/25 08:36 Loratadine 10 Mg Tablet PO 10 mg QAM VAIBHAV Administration Lorazepam 2 mg 03/09/25 11:25 Lorazepam (*Crx) 1 Mg Tablet BY MOUTH Q6H PRN seizures Montelukast Sodium 10 mg 03/06/25 21:00 03/15/25 20:29 Montelukast Sodium 10 Mg Tablet PO 10 mg QHS VAIBHAV Administration Ondansetron HCl 4 mg 03/05/25 23:48 Ondansetron Inj 4 Mg/2 Ml Vial IV PUSH Q4H PRN Nausea Pantoprazole Sodium 40 mg 03/06/25 09:00 03/16/25 08:36 Pantoprazole 40 Mg Tablet PO 40 mg DAILY VAIBHAV Administration Polyethylene Glycol 17 gm 03/07/25 21:00 03/15/25 20:30 Polyethylene Glycol 3350 17 Gm Powd.Pack PO Not Given HS VAIBHAV Simethicone 80 mg 03/06/25 08:15 Simethicone 80 Mg Tab.Chew PO Q6H PRN Abdominal Discomfort Sodium Chloride 1 applic 03/06/25 09:00 03/16/25 08:37 Sodium Chloride 5% Ophth Oint 3.5 Gm Tube EACH EYE Not Given QID VAIBHAV Sodium Chloride 1 drop 03/09/25 21:00 03/16/25 08:37 Sodium Chloride 2% Op Soln 15 Ml Btl EACH EYE 1 drop Q12HR VAIBHAV Administration Radiology Results: ITS Impressions Head CT 03/05/25 21:31 Impression: No acute intracranial hemorrhage or suspicious mass effect. No cross-sectional imaging evidence to suggest the presence of intracranial abscess formation, as detailed above. Renal Ultrasound 03/10/25 19:19 Impression: 1: Bilateral renal cysts. Stable left renal cyst measuring 7.5 cm with rim calcification, likely benign given the lack of interval change from CT dated 08/07/2022. Chest X-Ray 03/11/25 08:12 Impression: 1: Interval progression of bilateral airspace disease, edema versus pneumonia. Clinically correlate. Labs Labs: Laboratory Results - last 24 hr 03/16/25 04:54 WBC 13.0 H RBC 2.87 L Hgb 8.0 L Hct 25.3 L MCV 88.2 MCH 27.9 MCHC 31.6 L RDW 17.2 H Plt Count 170 MPV 9.5 Sodium 132 L Potassium 4.7 Chloride 102 Carbon Dioxide 25 Anion Gap 5 BUN 45 H Creatinine 1.69 H Estim Creat Clear Calc 49 Estimated GFR 40 L Glucose 90 Calcium 7.7 L Total Bilirubin 0.4 AST 18 ALT 28 Alkaline Phosphatase 125 Total Protein 5.5 L Albumin 2.6 L
--- NOTE | 2025-03-16 11:14 | PC.NURSE ---
Told Dr. CORTES that I was unsure of when pt had Pereira cather replaced last, since there was no where in the chart that stated when pt last had it replaced. Dr. CORTES said to go ahead and replace catheter now. Catheter was replaced 03/16/25 at 11:10.
--- NOTE | 2025-03-16 12:15 | PM.IMPN ---
Progress Note: A&P Assessment and Plan (1) Witnessed seizure-like activity: Code(s): R56.9 - Unspecified convulsions Status: Acute (2) Aspiration pneumonia of left lower lobe: Qualifiers: Aspiration pneumonia type: unspecified Qualified Code(s): J69.0 - Pneumonitis due to inhalation of food and vomit Code(s): J69.0 - Pneumonitis due to inhalation of food and vomit Status: Acute (3) Abnormal finding on urinalysis: Code(s): R82.90 - Unspecified abnormal findings in urine Status: Acute Plan Seizure, unwitnessed Keppra 1500mg bid Neurology eval and recommendation noted Seizure precaution Accu-Cheks Ativan 2 mg IV p.r.n. q.6 hours for seizures Neurology following Aspiration pneumonia ruled out ID evaluated and noted no lung finding on chest xray Levaquin and Flagyl discontinued per ID monitor Reviewed chest X-Ray Allergic reaction to Unasyn Itching and redness markedly improved today with dicontinuing Unasyn yesterday Continue Levaquin and Flagyl, Vanc added s/p Claritin and prednisone ID following Recent VRE bacteremia repeat blood culture showed 4/4 bottles positive for Staph capitis but antibiogram shows resistance to Bactrim with one set, and susceptibility with the second, suggesting 2 distinct strains ECHO no vegetations, but showed EF 60-65% with diastolic dysfunction Repeat blood cultures still negative ID held Daptomycin contingent on the above, monitor off Daptomycin, if no significant changes in the next couple of days, will start discharge planning ID following Anemia Hb 8.5, rs/p 1 unit pRBC GI evaluation noted and no intervention indicated continue monitoring Acute renal failure, resolved to baseline CKD (Baseline cr 1.4 to 1.7 per nephrology) Cr 1.61 from 2.35 K 5.3 from 5.8 s/p Zirconium Nephrology following monitor Chronic respiratory failure Continue nighttime oxygen, 2 liters at nighttime Baseline DVT prophylaxis on SCDs due to possible GI bleed Subjective Date/time seen: 03/16/25 12:15 Interval history: Patient WBC 13. No Evidence of fever. Will monitor for one more day. Pereira cath changed today.Cr stable at 1.69. Review of Systems Review of Systems: Unobtainable due to the patient's mental status Exam Narrative: Weight 131.5 kg BMI 38.2 Const: Other: Chronically ill-appearing but no acute distress, somnolent, chronically debilitated, morbidly obese, generalized anasarca, lying on the ER stretcher with head of bed at 20? HENMT: Other: Mucous membranes are dry, crowded posterior oropharynx Eyes: Other: Pupils are equal and reactive but patient does not track movement around the room Neck: Other: Large neck circumference, no JVD, thyroid goiter palpable larger on the left than the right (confirmed by prior CT scan 03/01/2025) Resp: Other: Sonorous respirations, periods of apnea, decreased breath sounds bilaterally, no increased work of breathing Cardio: Other: Regular rate, regular rhythm, no JVD GI: Other: Obese, distended, soft, positive bowel sounds, ostomy in the right abdomen with good output with the bag filled with gas : Other: Pereira catheter in place with drainage of clear urine Skin: Other: Erythema increased warmth to the medial left upper arm, some mild erythema to the right forearm but no increased warmth, anasarca changes to all extremities but bilateral upper extremities worse than lower extremities chronic, dried flaking skin bilateral feet, no foot wounds, thick yellow toenails Neuro: Other: Lethargic, difficult to arouse, does not follow commands but is moving bilateral upper extremities equally Extrem: Other: Pitting edema bilateral upper extremities, patient has well-healed scar on the left foot consistent with history of prior left great toe amputation, waffle boots in place bilaterally Psych: Other: Somnolent, difficult to arouse otherwise unable to assess due to patient condition Objective Data Vital Signs Vital Signs: Vital Signs - 24 hr 03/15/25 14:16 03/15/25 14:16 03/15/25 19:50 Temperature 96.9 F L Pulse Rate 88 88 97 Respiratory Rate 16 18 20 Blood Pressure 127/42 L Pulse Oximetry 100 95 Oxygen Delivery Room Air Fraction of Inspired Oxygen 21 03/15/25 19:50 03/15/25 20:00 03/15/25 20:28 Temperature 98.1 F Pulse Rate 97 97 Respiratory Rate 20 20 Blood Pressure 113/43 L Pulse Oximetry 95 Oxygen Delivery Room Air Fraction of Inspired Oxygen 03/16/25 05:22 03/16/25 08:40 03/16/25 08:45 Temperature 97.4 F L Pulse Rate 80 95 Respiratory Rate 20 Blood Pressure 112/41 L 120/55 L Pulse Oximetry 95 Oxygen Delivery Room Air Fraction of Inspired Oxygen 03/16/25 09:00 03/16/25 09:03 03/16/25 09:06 Temperature Pulse Rate 97 97 91 Respiratory Rate 20 19 20 Blood Pressure Pulse Oximetry 95 Oxygen Delivery Room Air Fraction of Inspired Oxygen 21 Intake/Output Intake/Output: Intake & Output 03/13/25 03/14/25 03/15/25 03/16/25 23:59 23:59 23:59 23:59 Intake Total 1240 2910 1790 820 Output Total 3600 4075 3300 1250 [facility] -2360 -1165 -1510 -430 Meds/Results Medications: Active Medications Generic Name Dose Route Start Last Admin Trade Name Freq PRN Reason Stop Dose Admin Acetaminophen 650 mg 03/05/25 23:48 03/15/25 20:29 Acetaminophen 325 Mg Tablet PO 650 mg Q4H PRN Administration Mild Pain (1-3) or Fever Apixaban 5 mg 03/07/25 21:00 03/10/25 08:40 Apixaban 5 Mg Tablet PO 5 mg On Hold: 03/10/25 12:38 Q12HR VAIBHAV Administration Diclofenac Sodium 1 applic 03/07/25 21:00 03/16/25 08:37 Diclofenac Sodium 1% 100 Gm Gel (*Bkc) TOPICAL 1 applic Q12HR VAIBHAV Administration Diltiazem HCl 30 mg 03/07/25 14:00 03/16/25 05:21 Diltiazem Hcl 30 Mg Tablet PO 30 mg Q8HR VAIBHAV Administration Diphenhydramine HCl 25 mg 03/07/25 08:21 03/08/25 21:10 Diphenhydramine Hcl Inj 50 Mg/Ml Vial IV PUSH 25 mg Q6HR PRN Administration Itching Fluticasone Propionate 2 spray 03/06/25 09:00 03/16/25 08:37 Fluticasone Propionate 0.05% Na Spr 16 Gm Btl (*Bkc) NASAL 2 spray DAILY VAIBHAV Administration Furosemide 40 mg 03/06/25 09:00 03/16/25 08:36 Furosemide 40 Mg Tablet PO 40 mg DAILY VAIBHAV Administration Hydrocortisone 1 applic 03/07/25 09:55 03/16/25 08:37 Hydrocortisone 1% 30 Gm Cream TOPICAL 1 applic Q12HR VAIBHAV Administration Hydroxyzine HCl 25 mg 03/08/25 00:55 03/15/25 22:27 Hydroxyzine Hcl 25 Mg Tablet PO 25 mg Q8H PRN Administration Itching Ipratropium [place] 0.5 mg 03/06/25 09:00 03/16/25 09:00 Ipratropium Br 0.02% Inh Soln 0.5 Mg/2.5 Ml Vial INHALATION 0.5 mg TIDRT VAIBHAV Administration Levetiracetam 1,500 mg 03/13/25 09:00 03/16/25 08:36 Levetiracetam 500 Mg Tablet PO 1,500 mg Q12HR VAIBHAV Administration Levothyroxine Sodium 25 mcg 03/07/25 06:30 03/16/25 05:21 Levothyroxine Sodium 25 Mcg Tablet PO 25 mcg DAILY@0630 [facility] Administration Lidocaine 2 patch 03/07/25 09:00 03/16/25 08:36 Lidocaine 5% Patch TRANSDERM 2 patch DAILY VAIBHAV Administration Loratadine 10 mg 03/07/25 09:55 03/16/25 08:36 Loratadine 10 Mg Tablet PO 10 mg QAM [facility] Administration Lorazepam 2 mg 03/09/25 11:25 Lorazepam (*Crx) 1 Mg Tablet BY MOUTH Q6H PRN seizures Montelukast Sodium 10 mg 03/06/25 21:00 03/15/25 20:29 Montelukast Sodium 10 Mg Tablet PO 10 mg QHS [facility] Administration Ondansetron HCl 4 mg 03/05/25 23:48 Ondansetron Inj 4 Mg/2 Ml Vial IV PUSH Q4H PRN Nausea Pantoprazole Sodium 40 mg 03/06/25 09:00 03/16/25 08:36 Pantoprazole 40 Mg Tablet PO 40 mg DAILY [facility] Administration Polyethylene Glycol 17 gm 03/07/25 21:00 03/15/25 20:30 Polyethylene Glycol 3350 17 Gm Powd.Pack PO Not Given HS VAIBHAV Simethicone 80 mg 03/06/25 08:15 Simethicone 80 Mg Tab.Chew PO Q6H PRN Abdominal Discomfort Sodium Chloride 1 applic 03/06/25 09:00 03/16/25 08:37 Sodium Chloride 5% Ophth Oint 3.5 Gm Tube EACH EYE Not Given QID [facility] Sodium Chloride 1 drop 03/09/25 21:00 03/16/25 08:37 Sodium Chloride 2% Op Soln 15 Ml Btl EACH EYE 1 drop Q12HR VAIBHAV Administration Radiology Results: ITS Impressions Head CT 03/05/25 21:31 Impression: No acute intracranial hemorrhage or suspicious mass effect. No cross-sectional imaging evidence to suggest the presence of intracranial abscess formation, as detailed above. Renal Ultrasound 03/10/25 19:19 Impression: 1: Bilateral renal cysts. Stable left renal cyst measuring 7.5 cm with rim calcification, likely benign given the lack of interval change from CT dated 08/07/2022. Chest X-Ray 03/11/25 08:12 Impression: 1: Interval progression of bilateral airspace disease, edema versus pneumonia. Clinically correlate. Labs Labs: Laboratory Results - last 24 hr 03/16/25 04:54 WBC 13.0 H RBC 2.87 L Hgb 8.0 L Hct 25.3 L MCV 88.2 MCH 27.9 MCHC 31.6 L RDW 17.2 H Plt Count 170 MPV 9.5 Sodium 132 L Potassium 4.7 Chloride 102 Carbon Dioxide 25 Anion Gap 5 BUN 45 H Creatinine 1.69 H Estim Creat Clear Calc 49 Estimated GFR 40 L Glucose 90 Calcium 7.7 L Total Bilirubin 0.4 AST 18 ALT 28 Alkaline Phosphatase 125 Total Protein 5.5 L Albumin 2.6 L Quality VTE Prophylaxis VTE prophylaxis: pharmacologic ordered (Continue home Eliquis.) Hospitalist [facility] Advance Care Plan I have confirmed that the patient's Advanced Care Plan is present, code status is documented, or surrogate decision maker is listed in patient medical record.: Yes Medication Reconciliation I have utilized all available resources to obtain, update and review the patients current medications (includes all prescriptions, OTC, herbals, cannabis, and nutritional supplements).: Yes
--- NOTE | 2025-03-16 13:07 | PM.PNNEP ---
Progress Note: A&P Assessment and Plan (1) Acute kidney injury: Code(s): N17.9 - Acute kidney failure, unspecified Status: Acute Assessment and Plan: improving (if not resolved) as noted by trend of labs since admission however, rise in creatinine noted on last day of previous admission: creatinine went from 1.25 --> 1.71mg/dL (from 03/02 --> 03/03) creatinine on admission (03/05) was 1.81mg/dL etiology not entirely clear but several possibilities: infection (bacteremia +/- pneumonia) prerenal factors possibly AIN (suspected allergic reaction to antibiotics with erythroderma + eosinophilia); but already on steroids contrast exposure (contrast CT on 03/01) anemia other(?) evaluation to date: renal u/s without obstruction urine electrolytes non-prerenal urine eosinophils negative CPK low moderate proteinuria resumed on oral lasix s/p lokelma for elevated K+ d/c'd sodium bicarbonate tabs follow trend of repeat labs and UOP (2) Stage 3 chronic kidney disease: Code(s): N18.30 - Chronic kidney disease, stage 3 unspecified Status: Chronic Assessment and Plan: baseline creatinine had been running ~ 1.4 - 1.7mg/dl in the last couple of years HOWEVER, has been as high as 1.8 - 2.3mg/dl during some of his acute hospitalizations this causes him to fluctuate between CKD stage 3A and stage 3B his CKD is secondary to his hypertension, congestive heart failure, vascular disease, previous acute kidney injury/acute renal failure requiring dialysis, and 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) (3) Bacteremia: Code(s): R78.81 - Bacteremia Status: Acute Assessment and Plan: blood cultures on this admission with Staph capitis recent hospitalization with VRE bacteremia Infectious Disease following with recommendations noted antibiotics discontinued (original cultures likely contamination) repeat TTE noted (no evidence of vegetation) follow repeat blood cultures: 03/09 - no growth to date 03/12 - no growth to date (4) Altered mental status: Qualifiers: Altered mental status type: delirium Qualified Code(s): R41.0 - Disorientation, unspecified Code(s): R41.82 - Altered mental status, unspecified Status: Acute Assessment and Plan: resolved as noted on presentation due to infection versus seizure versus other(?) imaging/testing noted: CT of head (this admission) negative MRI of brain (last admission - on 03/01) negative EEG (03/02) results reviewed follow trend of mentation (5) Anemia: Code(s): D64.9 - Anemia, unspecified Status: Acute Assessment and Plan: noted drop in H/H (on 03/10) possibly partly related to underlying CKD could be dilutional given recent IVFs GI recommendations noted PRBC transfusion per protocol follow trend of H/H (6) Seizure: Code(s): R56.9 - Unspecified convulsions Status: Acute Assessment and Plan: possible etiology of #4 Neurology following with recommendations noted previous EEG noted on Keppra seizure precautions (7) Erythroderma: Code(s): L53.9 - Erythematous condition, unspecified Status: Acute Assessment and Plan: resolved s/p prednisone therapy and claritin remains on benadryl and steroid cream suspect secondary to allergic reaction (from antibiotics or some other medication) continue supportive therapy (8) Paroxysmal atrial fibrillation: Code(s): I48.0 - Paroxysmal atrial fibrillation Status: Acute Assessment and Plan: rate control strategy on diltiazem on anticoagulation (Eliquis) Not much else to add from renal perspective -- ok for discharge from my perspective if otherwise medically stable. Will continue to follow from a distance. Subjective Date/time seen: 03/16/25 13:07 Interval history: Follow-up for acute kidney injury/acute renal failure on chronic kidney disease. No new issues or problems voiced at the time of my visit; no apparent distress noted, renal function/creatinine relatively stable at this time; no other issues/events overnight or earlier this morning. Exam Narrative: General: Large WD/WN male in NAD Heart: RRR, normal S1 and S2; no rub Lungs: decreased at bases Abdomen: soft, nontender, nondistended, positive bowel sounds; + colostomy Extremities: no cyanosis or clubbing; 1+ edema (UE > LE) Skin: no nodules Objective Data Vital Signs Vital Signs: Vital Signs Temp Pulse Resp BP Pulse Ox O2 Del Method FiO2 03/16/25 13:00 96.9 F L 87 16 112/50 L 98 03/16/25 09:06 91 20 03/16/25 09:03 97 19 95 Room Air 21 03/16/25 09:00 97 20 03/16/25 08:45 Room Air 03/16/25 08:40 95 120/55 L 03/16/25 05:22 97.4 F L 80 20 112/41 L 95 03/15/25 20:28 98.1 F 97 20 113/43 L 95 03/15/25 20:00 Room Air 03/15/25 19:50 97 20 03/15/25 19:50 97 20 95 Room Air 21 Intake/Output Intake/Output: Intake & Output 03/13/25 03/14/25 03/15/25 03/16/25 23:59 23:59 23:59 23:59 Intake Total 1240 2910 1790 1060 Output Total 3600 4075 3300 1250 Balance -4372 -6515 -1510 -190 Meds/Results Medications: Active Medications Generic Name Dose Route Start Last Admin Trade Name Freq PRN Reason Stop Dose Admin Acetaminophen 650 mg 03/05/25 23:48 03/15/25 20:29 Acetaminophen 325 Mg Tablet PO 650 mg Q4H PRN Administration Mild Pain (1-3) or Fever Apixaban 5 mg 03/07/25 21:00 03/10/25 08:40 Apixaban 5 Mg Tablet PO 5 mg On Hold: 03/10/25 12:38 Q12HR VAIBHAV Administration Diclofenac Sodium 1 applic 03/07/25 21:00 03/16/25 08:37 Diclofenac Sodium 1% 100 Gm Gel (*Bkc) TOPICAL 1 applic Q12HR VAIBHAV Administration Diltiazem HCl 30 mg 03/07/25 14:00 03/16/25 13:31 Diltiazem Hcl 30 Mg Tablet PO 30 mg Q8HR [facility]IBHAV Administration Diphenhydramine HCl 25 mg 03/07/25 08:21 03/08/25 21:10 Diphenhydramine Hcl Inj 50 Mg/Ml Vial IV PUSH 25 mg Q6HR PRN Administration Itching Fluticasone Propionate 2 spray 03/06/25 09:00 03/16/25 08:37 Fluticasone Propionate 0.05% Na Spr 16 Gm Btl (*Bkc) NASAL 2 spray DAILY VAIBHAV Administration Furosemide 40 mg 03/06/25 09:00 03/16/25 08:36 Furosemide 40 Mg Tablet PO 40 mg DAILY [facility]IB[facility]AV Administration Hydrocortisone 1 applic 03/07/25 09:55 03/16/25 08:37 Hydrocortisone 1% 30 Gm Cream TOPICAL 1 applic Q12HR [facility]IBHAV Administration Hydroxyzine HCl 25 mg 03/08/25 00:55 03/15/25 22:27 Hydroxyzine Hcl 25 Mg Tablet PO 25 mg Q8H PRN Administration Itching Ipratropium [place] 0.5 mg 03/06/25 09:00 03/16/25 13:20 Ipratropium Br 0.02% Inh Soln 0.5 Mg/2.5 Ml Vial INHALATION 0.5 mg TIDRT [facility] [place] Administration Levetiracetam 1,500 mg 03/13/25 09:00 03/16/25 08:36 Levetiracetam 500 Mg Tablet PO 1,500 mg Q12HR [facility] [place] Administration Levothyroxine Sodium 25 mcg 03/07/25 06:30 03/16/25 05:21 Levothyroxine Sodium 25 Mcg Tablet PO 25 mcg DAILY@0630 [facility] Administration Lidocaine 2 patch 03/07/25 09:00 03/16/25 08:36 Lidocaine 5% Patch TRANSDERM 2 patch DAILY [facility] Administration Loratadine 10 mg 03/07/25 09:55 03/16/25 08:36 Loratadine 10 Mg Tablet PO 10 mg QAM [facility] Administration Lorazepam 2 mg 03/09/25 11:25 Lorazepam (*Crx) 1 Mg Tablet BY MOUTH Q6H PRN seizures Montelukast Sodium 10 mg 03/06/25 21:00 03/15/25 20:29 Montelukast Sodium 10 Mg Tablet PO 10 mg QHS [facility] [place] Administration Ondansetron HCl 4 mg 03/05/25 23:48 Ondansetron Inj 4 Mg/2 Ml Vial IV PUSH Q4H PRN Nausea Pantoprazole Sodium 40 mg 03/06/25 09:00 03/16/25 08:36 Pantoprazole 40 Mg Tablet PO 40 mg DAILY [facility] Administration Polyethylene Glycol 17 gm 03/07/25 21:00 03/15/25 20:30 Polyethylene Glycol 3350 17 Gm Powd.Pack PO Not Given HS VAIBHAV Simethicone 80 mg 03/06/25 08:15 Simethicone 80 Mg Tab.Chew PO Q6H PRN Abdominal Discomfort Sodium Chloride 1 applic 03/06/25 09:00 03/16/25 17:20 Sodium Chloride 5% Ophth Oint 3.5 Gm Tube EACH EYE Not Given QID AVIBHAV Sodium Chloride 1 drop 03/09/25 21:00 03/16/25 08:37 Sodium Chloride 2% Op Soln 15 Ml Btl EACH EYE 1 drop Q12HR VAIHBAV Administration Radiology Results: ITS Impressions Head CT 03/05/25 21:31 Impression: No acute intracranial hemorrhage or suspicious mass effect. No cross-sectional imaging evidence to suggest the presence of intracranial abscess formation, as detailed above. Renal Ultrasound 03/10/25 19:19 Impression: 1: Bilateral renal cysts. Stable left renal cyst measuring 7.5 cm with rim calcification, likely benign given the lack of interval change from CT dated 08/07/2022. Chest X-Ray 03/11/25 08:12 Impression: 1: Interval progression of bilateral airspace disease, edema versus pneumonia. Clinically correlate. Labs Labs: Laboratory Tests 03/16/25 04:54 03/16/25 04:54 Calcium 7.7 L Total Bilirubin 0.4 AST 18 ALT 28 Alkaline Phosphatase 125 Total Protein 5.5 L Albumin 2.6 L Microbiology 03/12/25 08:39 Blood Blood Culture - Preliminary 03/12/25 08:31 Blood Blood Culture - Preliminary 03/09/25 03:54 Blood Blood Culture - Final 03/09/25 03:54 Blood Blood Culture - Final
--- NOTE | 2025-03-16 13:07 | P.PNNP_ITS ---
Progress Note: A&P Assessment and Plan (1) Acute kidney injury: Code(s): N17.9 - Acute kidney failure, unspecified Status: Acute Assessment and Plan: * improving (if not resolved) * as noted by trend of labs since admission * however, rise in creatinine noted on last day of previous admission: creatinine went from 1.25 --> 1.71mg/dL (from 03/02 --> 03/03) * creatinine on admission (03/05) was 1.81mg/dL * etiology not entirely clear but several possibilities: * infection (bacteremia +/- pneumonia) * prerenal factors * possibly AIN (suspected allergic reaction to antibiotics with erythroderma + eosinophilia); but already on steroids * contrast exposure (contrast CT on 03/01) * anemia * other(?) * evaluation to date: * renal u/s without obstruction * urine electrolytes non-prerenal * urine eosinophils negative * CPK low * moderate proteinuria * resumed on oral lasix * s/p lokelma for elevated K+ * d/c'd sodium bicarbonate tabs * follow trend of repeat labs and UOP (2) Stage 3 chronic kidney disease: Code(s): N18.30 - Chronic kidney disease, stage 3 unspecified Status: Chronic Assessment and Plan: * baseline creatinine had been running ~ 1.4 - 1.7mg/dl in the last couple of years * HOWEVER, has been as high as 1.8 - 2.3mg/dl during some of his acute hospitalizations * this causes him to fluctuate between CKD stage 3A and stage 3B * his CKD is secondary to his hypertension, congestive heart failure, vascular disease, previous acute kidney injury/acute renal failure requiring dialysis, and 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) (3) Bacteremia: Code(s): R78.81 - Bacteremia Status: Acute Assessment and Plan: * blood cultures on this admission with Staph capitis * recent hospitalization with VRE bacteremia * Infectious Disease following with recommendations noted * antibiotics discontinued (original cultures likely contamination) * repeat TTE noted (no evidence of vegetation) * follow repeat blood cultures: * 03/09 - no growth to date * 03/12 - no growth to date (4) Altered mental status: Qualifiers: Altered mental status type: delirium Qualified Code(s): R41.0 - Disorientation, unspecified Code(s): R41.82 - Altered mental status, unspecified Status: Acute Assessment and Plan: * resolved * as noted on presentation * due to infection versus seizure versus other(?) * imaging/testing noted: * CT of head (this admission) negative * MRI of brain (last admission - on 03/01) negative * EEG (03/02) results reviewed * follow trend of mentation (5) Anemia: Code(s): D64.9 - Anemia, unspecified Status: Acute Assessment and Plan: * noted drop in H/H (on 03/10) * possibly partly related to underlying CKD * could be dilutional given recent IVFs * GI recommendations noted * PRBC transfusion per protocol * follow trend of H/H (6) Seizure: Code(s): R56.9 - Unspecified convulsions Status: Acute Assessment and Plan: * possible etiology of #4 * Neurology following with recommendations noted * previous EEG noted * on Keppra * seizure precautions (7) Erythroderma: Code(s): L53.9 - Erythematous condition, unspecified Status: Acute Assessment and Plan: * resolved * s/p prednisone therapy and claritin * remains on benadryl and steroid cream * suspect secondary to allergic reaction (from antibiotics or some other medication) * continue supportive therapy (8) Paroxysmal atrial fibrillation: Code(s): I48.0 - Paroxysmal atrial fibrillation Status: Acute Assessment and Plan: * rate control strategy * on diltiazem * on anticoagulation (Eliquis) Not much else to add from renal perspective -- ok for discharge from my perspective if otherwise medically stable. Will continue to follow from a distance. L Subjective Date/time seen: 03/16/25 13:07 Interval history: Follow-up for acute kidney injury/acute renal failure on chronic kidney disease. No new issues or problems voiced at the time of my visit; no apparent distress noted, renal function/creatinine relatively stable at this time; no other issues/events overnight or earlier this morning. Exam 2 Narrative: General: Large WD/WN male in NAD Heart: RRR, normal S1 and S2; no rub Lungs: decreased at bases Abdomen: soft, nontender, nondistended, positive bowel sounds; + colostomy Extremities: no cyanosis or clubbing; 1+ edema (UE > LE) Skin: no nodules Objective Data Vital Signs Vital Signs: Vital Signs Temp Pulse Resp BP Pulse Ox O2 Del Method FiO2 03/16/25 13:00 96.9 F L 87 16 112/50 L 98 03/16/25 09:06 91 20 03/16/25 09:03 97 19 95 Room Air 21 03/16/25 09:00 97 20 03/16/25 08:45 Room Air 03/16/25 08:40 95 120/55 L 03/16/25 05:22 97.4 F L 80 20 112/41 L 95 03/15/25 20:28 98.1 F 97 20 113/43 L 95 03/15/25 20:00 Room Air 03/15/25 19:50 97 20 03/15/25 19:50 97 20 95 Room Air 21 Intake/Output Intake/Output: Intake & Output 03/13/25 03/14/25 03/15/25 03/16/25 23:59 23:59 23:59 23:59 Intake Total 1240 2910 1790 1060 Output Total 3600 4075 3300 1250 Balance -2360 -1165 -1510 -190 Meds/Results Medications: Active Medications Generic Name Dose Route Start Last Admin Trade Name Freq PRN Reason Stop Dose Admin Acetaminophen 650 mg 03/05/25 23:48 03/15/25 20:29 Acetaminophen 325 Mg Tablet PO 650 mg Q4H PRN Administration Mild Pain (1-3) or Fever Apixaban 5 mg 03/07/25 21:00 03/10/25 08:40 Apixaban 5 Mg Tablet PO 5 mg On Hold: 03/10/25 12:38 Q12HR VAIBHAV Administration Diclofenac Sodium 1 applic 03/07/25 21:00 03/16/25 08:37 Diclofenac Sodium 1% 100 Gm Gel (*[facility]) TOPICAL 1 applic Q12HR VAIBHAV Administration Diltiazem HCl 30 mg 03/07/25 14:00 03/16/25 13:31 Diltiazem Hcl 30 Mg Tablet PO 30 mg Q8HR [facility]IBHAV Administration Diphenhydramine HCl 25 mg 03/07/25 08:21 03/08/25 21:10 Diphenhydramine Hcl Inj 50 Mg/Ml Vial IV PUSH 25 mg Q6HR PRN Administration Itching Fluticasone Propionate 2 spray 03/06/25 09:00 03/16/25 08:37 Fluticasone Propionate 0.05% Na Spr 16 Gm Btl (*Bkc) NASAL 2 spray DAILY VAIBHAV Administration Furosemide 40 mg 03/06/25 09:00 03/16/25 08:36 Furosemide 40 Mg Tablet PO 40 mg DAILY [facility]IB[facility]AV Administration Hydrocortisone 1 applic 03/07/25 09:55 03/16/25 08:37 Hydrocortisone 1% 30 Gm Cream TOPICAL 1 applic Q12HR [facility]IB[facility]AV Administration Hydroxyzine HCl 25 mg 03/08/25 00:55 03/15/25 22:27 Hydroxyzine Hcl 25 Mg Tablet PO 25 mg Q8H PRN Administration Itching Ipratropium [place] 0.5 mg 03/06/25 09:00 03/16/25 13:20 Ipratropium Br 0.02% Inh Soln 0.5 Mg/2.5 Ml Vial INHALATION 0.5 mg TIDRT [facility]IB[facility]AV Administration Levetiracetam 1,500 mg 03/13/25 09:00 03/16/25 08:36 Levetiracetam 500 Mg Tablet PO 1,500 mg Q12HR [facility]IB[facility] Administration Levothyroxine Sodium 25 mcg 03/07/25 06:30 03/16/25 05:21 Levothyroxine Sodium 25 Mcg Tablet PO 25 mcg DAILY@0630 [facility] Administration Lidocaine 2 patch 03/07/25 09:00 03/16/25 08:36 Lidocaine 5% Patch TRANSDERM 2 patch DAILY [facility]IB[facility] Administration Loratadine 10 mg 03/07/25 09:55 03/16/25 08:36 Loratadine 10 Mg Tablet PO 10 mg QAM [facility]IB[facility] Administration Lorazepam 2 mg 03/09/25 11:25 Lorazepam (*Crx) 1 Mg Tablet BY MOUTH Q6H PRN seizures Montelukast Sodium 10 mg 03/06/25 21:00 03/15/25 20:29 Montelukast Sodium 10 Mg Tablet PO 10 mg QHS [facility] Administration Ondansetron HCl 4 mg 03/05/25 23:48 Ondansetron Inj 4 Mg/2 Ml Vial IV PUSH Q4H PRN Nausea Pantoprazole Sodium 40 mg 03/06/25 09:00 03/16/25 08:36 Pantoprazole 40 Mg Tablet PO 40 mg DAILY [facility]IB[facility] Administration Polyethylene Glycol 17 gm 03/07/25 21:00 03/15/25 20:30 Polyethylene Glycol 3350 17 Gm Powd.Pack PO Not Given HS [facility] Simethicone 80 mg 03/06/25 08:15 Simethicone 80 Mg Tab.Chew PO Q6H PRN Abdominal Discomfort Sodium Chloride 1 applic 03/06/25 09:00 03/16/25 17:20 Sodium Chloride 5% Ophth Oint 3.5 Gm Tube EACH EYE Not Given QID VAIBHAV Sodium Chloride 1 drop 03/09/25 21:00 03/16/25 08:37 Sodium Chloride 2% Op Soln 15 Ml Btl EACH EYE 1 drop Q12HR VAIBHAV Administration Radiology Results: ITS Impressions Head CT 03/05/25 21:31 Impression: No acute intracranial hemorrhage or suspicious mass effect. No cross-sectional imaging evidence to suggest the presence of intracranial abscess formation, as detailed above. Renal Ultrasound 03/10/25 19:19 Impression: 1: Bilateral renal cysts. Stable left renal cyst measuring 7.5 cm with rim calcification, likely benign given the lack of interval change from CT dated 08/07/2022. Chest X-Ray 03/11/25 08:12 Impression: 1: Interval progression of bilateral airspace disease, edema versus pneumonia. Clinically correlate. Labs Labs: Laboratory Tests 03/16/25 04:54 03/16/25 04:54 Calcium 7.7 L Total Bilirubin 0.4 AST 18 ALT 28 Alkaline Phosphatase 125 Total Protein 5.5 L Albumin 2.6 L Microbiology 03/12/25 08:39 Blood Blood Culture - Preliminary 03/12/25 08:31 Blood Blood Culture - Preliminary 03/09/25 03:54 Blood Blood Culture - Final 03/09/25 03:54 Blood Blood Culture - Final
[2025-03-16] MEDS: MONTELUKAST SODIUM 10 MG TABLET PO (21:01)
[2025-03-17] VITALS (10 sets, daily range): BP systolic 114–128; BP diastolic 45–84; PULSE 80–90; RESP 16–20; TEMP 36.2–36.6; O2SAT 90–97
[2025-03-17 04:54] LABS: Hematocrit 24.7 % (42.0-52.0); Hemoglobin 7.7 g/dL (14.0-18.0); Immature Granulocyte Percent A 0.9 % (0-0.5); Lymphocytes Absolute Auto 1.46 K/mm3 (0.9-3.2); Mean Corpuscular HGB Conc 31.2 g/dl (32-36); Mean Corpuscular Hemoglobin 28.1 pg (26-34); Mean Corpuscular Volume 90.1 fl (80-100); Nucleated Red Blood Cells Absolute Auto 0.000 K/mm3 (0.0-0.012); Nucleated Red Blood Cells Perc 0.0 % (0.0-0.2); Platelet Count Result 168 k/mm3 (150-375); Red Blood Count 2.74 M/mm3 (4.6-6.20); White Blood Count 10.7 K/mm3 (4.5-10.0)
[2025-03-17] MEDS: LEVOTHYROXINE SODIUM 25 MCG TABLET PO (05:06)
[2025-03-17 05:11] LABS: Alanine Aminotransferase 25 U/L (6-50); Albumin Level 2.7 g/dL (3.5-5.1); Alkaline Phosphatase 159 U/L (38-126); Anion Gap 4 mmol/L (4-12); Aspartate Amino Transferase 18 U/L (17-59); Bilirubin,Total 0.4 mg/dL (0.2-1.3); Blood Urea Nitrogen 41 mg/dL (9-20); Calcium 8.0 mg/dL (8.4-10.2); Carbon Dioxide 26 mmol/L (22-30); Chloride 103 mmol/L (98-107); Estimated CRCL calculation 48 ml/min; Estimated Glomerular Filt Rate 39; Glucose 90 mg/dL (65-110); Potassium 4.8 mmol/L (3.4-5.0); Sodium 133 mmol/L (137-145); Total Protein 5.9 g/dL (6.3-8.2)
[2025-03-17] MEDS: IPRATROPIUM BR 0.02% INH SOLN 0.5 MG/2.5 ML VIAL INHALATION ×3 (07:17→19:50)
[2025-03-17] MEDS: LORATADINE 10 MG TABLET PO (09:47)
[2025-03-17] MEDS: PANTOPRAZOLE 40 MG TABLET PO (09:47)
[2025-03-17] MEDS: FUROSEMIDE 40 MG TABLET PO (09:47)
[2025-03-17] MEDS: FLUTICASONE PROPIONATE 0.05% NA SPR 16 GM BTL (*BKC) 2 SPRAY NASAL (09:51)
[2025-03-17] MEDS: SODIUM CHLORIDE 2% OP SOLN 15 ML BTL 1 DROP EACH EYE ×2 (09:52→20:37)
[2025-03-17] MEDS: HYDROCORTISONE 1% 30 GM CREAM 1 APPLIC TOPICAL (09:53)
--- NOTE | 2025-03-17 10:58 | P.PNINF_ITS ---
Progress Note: A&P Assessment and Plan (1) Bacteremia: Code(s): R78.81 - Bacteremia Status: Acute (2) Coagulase negative Staphylococcus bacteremia: Code(s): R78.81 - Bacteremia; B95.7 - Other staphylococcus as the cause of diseases classified elsewhere Status: Acute (3) Enterococcal bacteremia: Code(s): R78.81 - Bacteremia; B95.2 - Enterococcus as the cause of diseases classified elsewhere Status: Acute (4) Rash: Code(s): R21 - Rash and other nonspecific skin eruption Status: Acute (5) Altered mental status: Qualifiers: Altered mental status type: delirium Qualified Code(s): R41.0 - Disorientation, unspecified Code(s): R41.82 - Altered mental status, unspecified Status: Acute (6) Seizure: Code(s): R56.9 - Unspecified convulsions Status: Acute (7) H/O colectomy: Code(s): Z90.49 - Acquired absence of other specified parts of digestive tract Status: Acute Plan # MR-Staph capitis positive blood cultures. -- 4/4 bottles but antibiogram shows resistance to Bactrim with one set, and susceptibility with the second, suggesting 2 distinct strains. Two distinct strains in a patient without lines or evidence of phlebitis at admission likely suggest blood culture contamination. -- recently with isolated Enterococcus faecalis (VRE ) bacteremia but currently without recurrence. -- transthoracic echocardiogram negative for vegetations. # Possible sepsis associated with bacteremia, if with true coagulase-negative Staphylococcus bacteremia , resolved. # Recent isolated Enterococcus faecalis (VRE) bacteremia. # Altered mental status secondary to sepsis versus recurrent seizures versus postictal state , resolved. # Erythroderma, resolved. --With eosinophilia consider allergic reaction. May be secondary to recent Unasyn. Linezolid also possible but less likely. Keppra is a new medication and might be associated but erythroderma resolving while still receiving Keppra. -- Eosinophilia which had resolved while on daptomycin and continued Keppra has now recurred 1 day after discontinuation of daptomycin. daptomycin may contribute to eosinophilia but should resolve quickly after discontinuation. Continue to monitor in case this is related to ongoing and increased dosing of Keppra. -- eosinophilia persists 03/08 9/14%. # Left lower lobe infiltrate seen now and during last hospitalization without radiographic worsening and without significant symptoms of pneumonia. Doubt active pneumonia at this time. # Right arm swelling , improved. Plan: -- with absence of line or evidence of phlebitis his admission blood cultures likely contamination. -- 02/20/2025 2D echocardiogram without vegetation as workup for enterococcal bacteremia. Current 2D echocardiogram negative for vegetation and repeat blood cultures negative negative to date; consequently, would consider blood culture findings as contamination. Now off antibiotics. -- avoid penicillins given the possibility of Unasyn-associated dermatitis. -- continue to monitor eosinophilia. Continue to monitor for recurrence of erythroderma while on Keppra. -- the ID service will now sign off. Please call with questions or problems. This Consult was performed via telemedicine while I was in [place] and the patient was in [place], [place], via audio and visual HIPAA protected interface and with patient's /POA consent. Subjective Date/time seen: 03/17/25 10:58 Interval history: 03/09/2025: Afebrile and vital signs stable. Erythema has resolved. No further evidence of left arm cellulitis and fluid weeping has resolved. 03/10/2025: Afebrile and vital signs stable. More awake, alert, and interactive. No leukocytosis. 03/05 blood cultures Positive for 4 bottles methicillin-resistant Staphylococcus capitis. 03/09 blood cultures pending. 03/13/2025: Remains afebrile with vital signs stable. Complaining of increased right arm swelling and possible redness. Leukocytosis continues to improve. Kidney function also improving. Follow-up blood cultures remain negative. 03/11 2D echocardiogram without vegetations. 03/14/2025: Afebrile and vital signs stable. Low-grade leukocytosis. Right arm swelling seen yesterday has improved. Eosinophilia has recurred after discontinuation of antibiotics. 03/16/2025: Afebrile. Continued low-grade leukocytosis. No differential today to evaluate eosinophilia. 03/17/2025: Afebrile. WBC 10.7. Eosinophilia remains elevated at 14%. Feels well. Blood cultures 03/05: Positive for 4 bottles MR-Staph capitis. Blood cultures 03/09: Negative, final Blood cultures 03/12: Negative at 48 hours Urine culture 03/05: Less than 10,000 colonies of mixed organism growth. Review of Systems Review of Systems: Resolution of pruritus. Right arm swelling and mild erythema seen recently has resolved. He denies significant cough, shortness of breath, or chest discomfor t. Exam Narrative: Sitting in bed and appears comfortable. Awake, alert, and able to answer questions. Much more interactive. Diffuse erythroderma present on admission now resolved. Generalized anasarca. Left arm fluid weeping resolved. Increased swelling to right arm seen recently has resolved. Normal respiratory effort. Without significant abdominal distention. Objective Data Vital Signs Vital Signs: Vital Signs - 24 hr 03/16/25 13:21 03/16/25 13:27 03/16/25 14:00 Temperature 96.9 F L Pulse Rate 89 86 87 Respiratory Rate 19 19 16 Blood Pressure 112/50 L Pulse Oximetry 98 Oxygen Delivery Fraction of Inspired Oxygen 03/16/25 20:00 03/16/25 20:39 03/16/25 20:42 Temperature 98 F Pulse Rate 87 87 Respiratory Rate 16 18 Blood Pressure 118/45 L Pulse Oximetry 98 98 98 Oxygen Delivery Room Air Room Air Fraction of Inspired Oxygen 21 21 03/16/25 20:42 03/16/25 20:48 03/17/25 04:42 Temperature 97.6 F Pulse Rate 87 85 80 Respiratory Rate 18 18 18 Blood Pressure 119/48 L Pulse Oximetry 94 Oxygen Delivery Fraction of Inspired Oxygen 03/17/25 07:19 Temperature Pulse Rate 86 Respiratory Rate 16 Blood Pressure Pulse Oximetry Oxygen Delivery Fraction of Inspired Oxygen Intake/Output Intake/Output: Intake & Output 03/14/25 03/15/25 03/16/25 03/17/25 23:59 23:59 23:59 23:59 Intake Total 2910 1790 1300 540 Output Total 4075 3300 2150 1450 [facility] -[phone] -[phone] Meds/Results Medications: Active Medications Generic Name Dose Route Start Last Admin Trade Name Freq PRN Reason Stop Dose Admin Acetaminophen 650 mg 03/05/25 23:48 03/15/25 20:29 Acetaminophen 325 Mg Tablet PO 650 mg Q4H PRN Administration Mild Pain (1-3) or Fever Apixaban 5 mg 03/07/25 21:00 03/10/25 08:40 Apixaban 5 Mg Tablet PO 5 mg On Hold: 03/10/25 12:38 Q12HR VAIBHAV Administration Diclofenac Sodium 1 applic 03/07/25 21:00 03/17/25 09:50 Diclofenac Sodium 1% 100 Gm Gel (*Bkc) TOPICAL Not Given Q12HR VAIBHAV Diltiazem HCl 30 mg 03/07/25 14:00 03/17/25 05:06 Diltiazem Hcl 30 Mg Tablet PO 30 mg Q8HR VAIBHAV Administration Diphenhydramine HCl 25 mg 03/07/25 08:21 03/08/25 21:10 Diphenhydramine Hcl Inj 50 Mg/Ml Vial IV PUSH 25 mg Q6HR PRN Administration Itching Fluticasone Propionate 2 spray 03/06/25 09:00 03/17/25 09:51 Fluticasone Propionate 0.05% Na Spr 16 Gm Btl (*Bkc) NASAL 2 spray DAILY VAIBHAV Administration Furosemide 40 mg 03/06/25 09:00 03/17/25 09:47 Furosemide 40 Mg Tablet PO 40 mg DAILY VAIBHAV Administration Hydrocortisone 1 applic 03/07/25 09:55 03/17/25 09:53 Hydrocortisone 1% 30 Gm Cream TOPICAL 1 applic Q12HR VAIBHAV Administration Hydroxyzine HCl 25 mg 03/08/25 00:55 03/15/25 22:27 Hydroxyzine Hcl 25 Mg Tablet PO 25 mg Q8H PRN Administration Itching Ipratropium [place] 0.5 mg 03/06/25 09:00 03/17/25 07:17 Ipratropium Br 0.02% Inh Soln 0.5 Mg/2.5 Ml Vial INHALATION 0.5 mg TIDRT VAIBHAV Administration Levetiracetam 1,500 mg 03/13/25 09:00 03/17/25 09:47 Levetiracetam 500 Mg Tablet PO 1,500 mg Q12HR VAIBHAV Administration Levothyroxine Sodium 25 mcg 03/07/25 06:30 03/17/25 05:06 Levothyroxine Sodium 25 Mcg Tablet PO 25 mcg DAILY@0630 COUNTS INCLUDE 234 BEDS AT [facility] Administration Lidocaine 2 patch 03/07/25 09:00 03/17/25 09:52 Lidocaine 5% Patch TRANSDERM Not Given DAILY COUNTS INCLUDE 234 BEDS AT THE [facility] Loratadine 10 mg 03/07/25 09:55 03/17/25 09:47 Loratadine 10 Mg Tablet PO 10 mg QAM VAIBHAV Administration Lorazepam 2 mg 03/09/25 11:25 Lorazepam (*Crx) 1 Mg Tablet BY MOUTH Q6H PRN seizures Montelukast Sodium 10 mg 03/06/25 21:00 03/16/25 21:01 Montelukast Sodium 10 Mg Tablet PO 10 mg QHS VAIBHAV Administration Ondansetron HCl 4 mg 03/05/25 23:48 Ondansetron Inj 4 Mg/2 Ml Vial IV PUSH Q4H PRN Nausea Pantoprazole Sodium 40 mg 03/06/25 09:00 03/17/25 09:47 Pantoprazole 40 Mg Tablet PO 40 mg DAILY VAIBHAV Administration Polyethylene Glycol 17 gm 03/07/25 21:00 03/16/25 21:02 Polyethylene Glycol 3350 17 Gm Powd.Pack PO Not Given HS VAIBHAV Simethicone 80 mg 03/06/25 08:15 Simethicone 80 Mg Tab.Chew PO Q6H PRN Abdominal Discomfort Sodium Chloride 1 applic 03/06/25 09:00 03/17/25 09:52 Sodium Chloride 5% Ophth Oint 3.5 Gm Tube EACH EYE Not Given QID VAIBHAV Sodium Chloride 1 drop 03/09/25 21:00 03/17/25 09:52 Sodium Chloride 2% Op Soln 15 Ml Btl EACH EYE 1 drop Q12HR VAIBHAV Administration Radiology Results: ITS Impressions Head CT 03/05/25 21:31 Impression: No acute intracranial hemorrhage or suspicious mass effect. No cross-sectional imaging evidence to suggest the presence of intracranial abscess formation, as detailed above. Renal Ultrasound 03/10/25 19:19 Impression: 1: Bilateral renal cysts. Stable left renal cyst measuring 7.5 cm with rim calcification, likely benign given the lack of interval change from CT dated 08/07/2022. Chest X-Ray 03/11/25 08:12 Impression: 1: Interval progression of bilateral airspace disease, edema versus pneumonia. Clinically correlate. Labs Labs: Laboratory Results - last 24 hr 03/17/25 04:39 WBC 10.7 H RBC 2.74 L Hgb 7.7 L Hct 24.7 L MCV 90.1 MCH 28.1 MCHC 31.2 L RDW 17.2 H Plt Count 168 MPV 9.6 Immature Gran % (Auto) 0.9 H Neut % (Auto) 62.2 Lymph % (Auto) 13.7 L [place] % (Auto) 8.6 H Eos % (Auto) 14.1 H Baso % (Auto) 0.5 Lymph # (Auto) 1.46 [place] # (Auto) 0.9 H Eos # (Auto) 1.5 H Baso # (Auto) 0.1 Abs Immat Gran (auto) 0.10 H Absolute Neuts (auto) 6.6 Absolute Nucleated RBC 0.000 Nucleated RBC % 0.0 Sodium 133 L Potassium 4.8 Chloride 103 Carbon Dioxide 26 Anion Gap 4 BUN 41 H Creatinine 1.73 H Estim Creat Clear Calc 48 Estimated GFR 39 L Glucose 90 Calcium 8.0 L Total Bilirubin 0.4 AST 18 ALT 25 Alkaline Phosphatase 159 H Total Protein 5.9 L Albumin 2.7 L
[2025-03-17] MEDS: EPOETIN ALFA-EPBX 20,000 UNITS/ML VIAL 20000 UNITS SUB-Q (13:10)
--- NOTE | 2025-03-17 16:13 | PM.IMPN ---
Progress Note: A&P Assessment and Plan (1) Witnessed seizure-like activity: Code(s): R56.9 - Unspecified convulsions Status: Acute (2) Aspiration pneumonia of left lower lobe: Qualifiers: Aspiration pneumonia type: unspecified Qualified Code(s): J69.0 - Pneumonitis due to inhalation of food and vomit Code(s): J69.0 - Pneumonitis due to inhalation of food and vomit Status: Acute (3) Abnormal finding on urinalysis: Code(s): R82.90 - Unspecified abnormal findings in urine Status: Acute Plan Seizure, unwitnessed Keppra 1500mg bid Neurology eval and recommendation noted Seizure precaution Accu-Cheks Ativan 2 mg IV p.r.n. q.6 hours for seizures Neurology following Aspiration pneumonia ruled out ID evaluated and noted no lung finding on chest xray Levaquin and Flagyl discontinued per ID monitor Reviewed chest X-Ray Allergic reaction to Unasyn Itching and redness markedly improved today with dicontinuing Unasyn yesterday Continue Levaquin and Flagyl, Vanc added s/p Claritin and prednisone ID following Recent VRE bacteremia repeat blood culture showed 4/4 bottles positive for Staph capitis but antibiogram shows resistance to Bactrim with one set, and susceptibility with the second, suggesting 2 distinct strains ECHO no vegetations, but showed EF 60-65% with diastolic dysfunction Repeat blood cultures still negative ID held Daptomycin contingent on the above, monitor off Daptomycin, if no significant changes in the next couple of days, will start discharge planning ID following Anemia Hb 8.5, rs/p 1 unit pRBC GI evaluation noted and no intervention indicated continue monitoring Acute renal failure, resolved to baseline CKD (Baseline cr 1.4 to 1.7 per nephrology) Cr 1.61 from 2.35 K 5.3 from 5.8 s/p Zirconium Nephrology following monitor Chronic respiratory failure Continue nighttime oxygen, 2 liters at nighttime Baseline DVT prophylaxis on SCDs due to possible GI bleed Subjective Date/time seen: 03/17/25 16:13 Interval history: No acute events overnight. Patient is off antibiotics. No evidence of fever. WBC trending down. Patient creatinine 1.7, believed that is going to be his new baseline. Will continue to monitor until tomorrow. Discussed the plan with his daughter who agrees with it Review of Systems Review of Systems: Unobtainable due to the patient's mental status Exam Narrative: Weight 131.5 kg BMI 38.2 Const: Other: Chronically ill-appearing but no acute distress, somnolent, chronically debilitated, morbidly obese, generalized anasarca, lying on the ER stretcher with head of bed at 20? HENMT: Other: Mucous membranes are dry, crowded posterior oropharynx Eyes: Other: Pupils are equal and reactive but patient does not track movement around the room Neck: Other: Large neck circumference, no JVD, thyroid goiter palpable larger on the left than the right (confirmed by prior CT scan 03/01/2025) Resp: Other: Sonorous respirations, periods of apnea, decreased breath sounds bilaterally, no increased work of breathing Cardio: Other: Regular rate, regular rhythm, no JVD GI: Other: Obese, distended, soft, positive bowel sounds, ostomy in the right abdomen with good output with the bag filled with gas : Other: Pereira catheter in place with drainage of clear urine Skin: Other: Erythema increased warmth to the medial left upper arm, some mild erythema to the right forearm but no increased warmth, anasarca changes to all extremities but bilateral upper extremities worse than lower extremities chronic, dried flaking skin bilateral feet, no foot wounds, thick yellow toenails Neuro: Other: Lethargic, difficult to arouse, does not follow commands but is moving bilateral upper extremities equally Extrem: Other: Pitting edema bilateral upper extremities, patient has well-healed scar on the left foot consistent with history of prior left great toe amputation, waffle boots in place bilaterally Psych: Other: Somnolent, difficult to arouse otherwise unable to assess due to patient condition Objective Data Vital Signs Vital Signs: Vital Signs - 24 hr 03/16/25 20:00 03/16/25 20:39 03/16/25 20:42 Temperature 98 F Pulse Rate 87 87 Respiratory Rate 16 18 Blood Pressure 118/45 L Pulse Oximetry 98 98 98 Oxygen Delivery Room Air Room Air Fraction of Inspired Oxygen 21 21 03/16/25 20:42 03/16/25 20:48 03/17/25 04:42 Temperature 97.6 F Pulse Rate 87 85 80 Respiratory Rate 18 18 18 Blood Pressure 119/48 L Pulse Oximetry 94 Oxygen Delivery Fraction of Inspired Oxygen 03/17/25 07:19 03/17/25 09:55 03/17/25 13:16 Temperature 97.8 F Pulse Rate 86 84 Respiratory Rate 16 16 Blood Pressure 114/84 Pulse Oximetry 96 97 Oxygen Delivery Room Air Fraction of Inspired Oxygen 03/17/25 13:22 Temperature Pulse Rate 90 Respiratory Rate 16 Blood Pressure Pulse Oximetry Oxygen Delivery Fraction of Inspired Oxygen Intake/Output Intake/Output: Intake & Output 03/14/25 03/15/25 03/16/25 03/17/25 23:59 23:59 23:59 23:59 Intake Total 2910 1790 1300 900 Output Total 4075 3300 2150 1450 [facility] -1165 -1510 -850 -550 Meds/Results Medications: Active Medications Generic Name Dose Route Start Last Admin Trade Name Freq PRN Reason Stop Dose Admin Acetaminophen 650 mg 03/05/25 23:48 03/15/25 20:29 Acetaminophen 325 Mg Tablet PO 650 mg Q4H PRN Administration Mild Pain (1-3) or Fever Apixaban 5 mg 03/07/25 21:00 03/10/25 08:40 Apixaban 5 Mg Tablet PO 5 mg On Hold: 03/10/25 12:38 Q12HR VAIBHAV Administration Diclofenac Sodium 1 applic 03/07/25 21:00 03/17/25 09:50 Diclofenac Sodium 1% 100 Gm Gel (*Bkc) TOPICAL Not Given Q12HR VAIBHAV Diltiazem HCl 30 mg 03/07/25 14:00 03/17/25 13:07 Diltiazem Hcl 30 Mg Tablet PO 30 mg Q8HR VAIBHAV Administration Diphenhydramine HCl 25 mg 03/07/25 08:21 03/08/25 21:10 Diphenhydramine Hcl Inj 50 Mg/Ml Vial IV PUSH 25 mg Q6HR PRN Administration Itching Fluticasone Propionate 2 spray 03/06/25 09:00 03/17/25 09:51 Fluticasone Propionate 0.05% Na Spr 16 Gm Btl (*Bkc) NASAL 2 spray DAILY VAIBHAV Administration Furosemide 40 mg 03/06/25 09:00 03/17/25 09:47 Furosemide 40 Mg Tablet PO 40 mg DAILY VAIBHAV Administration Hydrocortisone 1 applic 03/07/25 09:55 03/17/25 09:53 Hydrocortisone 1% 30 Gm Cream TOPICAL 1 applic Q12HR VAIBHAV Administration Hydroxyzine HCl 25 mg 03/08/25 00:55 03/15/25 22:27 Hydroxyzine Hcl 25 Mg Tablet PO 25 mg Q8H PRN Administration Itching Ipratropium [place] 0.5 mg 03/06/25 09:00 03/17/25 13:21 Ipratropium Br 0.02% Inh Soln 0.5 Mg/2.5 Ml Vial INHALATION 0.5 mg TIDRT VAIBHAV Administration Levetiracetam 1,500 mg 03/13/25 09:00 03/17/25 09:47 Levetiracetam 500 Mg Tablet PO 1,500 mg Q12HR VAIBHAV Administration Levothyroxine Sodium 25 mcg 03/07/25 06:30 03/17/25 05:06 Levothyroxine Sodium 25 Mcg Tablet PO 25 mcg DAILY@0630 VAIBHAV Administration Lidocaine 2 patch 03/07/25 09:00 03/17/25 09:52 Lidocaine 5% Patch TRANSDERM Not Given DAILY [facility] Loratadine 10 mg 03/07/25 09:55 03/17/25 09:47 Loratadine 10 Mg Tablet PO 10 mg QAM [facility] Administration Lorazepam 2 mg 03/09/25 11:25 Lorazepam (*Crx) 1 Mg Tablet BY MOUTH Q6H PRN seizures Montelukast Sodium 10 mg 03/06/25 21:00 03/16/25 21:01 Montelukast Sodium 10 Mg Tablet PO 10 mg QHS [facility] Administration Ondansetron HCl 4 mg 03/05/25 23:48 Ondansetron Inj 4 Mg/2 Ml Vial IV PUSH Q4H PRN Nausea Pantoprazole Sodium 40 mg 03/06/25 09:00 03/17/25 09:47 Pantoprazole 40 Mg Tablet PO 40 mg DAILY [facility] Administration Polyethylene Glycol 17 gm 03/07/25 21:00 03/16/25 21:02 Polyethylene Glycol 3350 17 Gm Powd.Pack PO Not Given HS VAIBHAV Simethicone 80 mg 03/06/25 08:15 Simethicone 80 Mg Tab.Chew PO Q6H PRN Abdominal Discomfort Sodium Chloride 1 applic 03/06/25 09:00 03/17/25 13:07 Sodium Chloride 5% Ophth Oint 3.5 Gm Tube EACH EYE Not Given QID [facility] Sodium Chloride 1 drop 03/09/25 21:00 03/17/25 09:52 Sodium Chloride 2% Op Soln 15 Ml Btl EACH EYE 1 drop Q12HR VAIBHAV Administration Radiology Results: ITS Impressions Head CT 03/05/25 21:31 Impression: No acute intracranial hemorrhage or suspicious mass effect. No cross-sectional imaging evidence to suggest the presence of intracranial abscess formation, as detailed above. Renal Ultrasound 03/10/25 19:19 Impression: 1: Bilateral renal cysts. Stable left renal cyst measuring 7.5 cm with rim calcification, likely benign given the lack of interval change from CT dated 08/07/2022. Chest X-Ray 03/11/25 08:12 Impression: 1: Interval progression of bilateral airspace disease, edema versus pneumonia. Clinically correlate. Labs Labs: Laboratory Results - last 24 hr 03/17/25 04:39 WBC 10.7 H RBC 2.74 L Hgb 7.7 L Hct 24.7 L MCV 90.1 MCH 28.1 MCHC 31.2 L RDW 17.2 H Plt Count 168 MPV 9.6 Immature Gran % (Auto) 0.9 H Neut % (Auto) 62.2 Lymph % (Auto) 13.7 L [place] % (Auto) 8.6 H Eos % (Auto) 14.1 H Baso % (Auto) 0.5 Lymph # (Auto) 1.46 [place] # (Auto) 0.9 H Eos # (Auto) 1.5 H Baso # (Auto) 0.1 Abs Immat Gran (auto) 0.10 H Absolute Neuts (auto) 6.6 Absolute Nucleated RBC 0.000 Nucleated RBC % 0.0 Sodium 133 L Potassium 4.8 Chloride 103 Carbon Dioxide 26 Anion Gap 4 BUN 41 H Creatinine 1.73 H Estim Creat Clear Calc 48 Estimated GFR 39 L Glucose 90 Calcium 8.0 L Total Bilirubin 0.4 AST 18 ALT 25 Alkaline Phosphatase 159 H Total Protein 5.9 L Albumin 2.7 L Quality VTE Prophylaxis VTE prophylaxis: pharmacologic ordered (Continue home Eliquis.) Hospitalist MIPS Advance Care Plan I have confirmed that the patient's Advanced Care Plan is present, code status is documented, or surrogate decision maker is listed in patient medical record.: Yes Medication Reconciliation I have utilized all available resources to obtain, update and review the patients current medications (includes all prescriptions, OTC, herbals, cannabis, and nutritional supplements).: Yes
[2025-03-17] MEDS: MONTELUKAST SODIUM 10 MG TABLET PO (20:35)
[2025-03-17] MEDS: MELATONIN 5 MG TABLET PO (21:27)
[2025-03-18] VITALS (11 sets, daily range): BP systolic 115–122; BP diastolic 40–42; PULSE 74–95; RESP 16–20; TEMP 36.2–36.7; O2SAT 92–97
[2025-03-18 04:39] LABS: Hematocrit 24.4 % (42.0-52.0); Hemoglobin 7.7 g/dL (14.0-18.0); Mean Corpuscular HGB Conc 31.6 g/dl (32-36); Mean Corpuscular Hemoglobin 28.2 pg (26-34); Mean Corpuscular Volume 89.4 fl (80-100); Platelet Count Result 164 k/mm3 (150-375); Red Blood Count 2.73 M/mm3 (4.6-6.20); White Blood Count 9.0 K/mm3 (4.5-10.0)
[2025-03-18 05:00] LABS: Alanine Aminotransferase 21 U/L (6-50); Albumin Level 2.7 g/dL (3.5-5.1); Alkaline Phosphatase 159 U/L (38-126); Anion Gap 5 mmol/L (4-12); Aspartate Amino Transferase 18 U/L (17-59); Bilirubin,Total 0.4 mg/dL (0.2-1.3); Blood Urea Nitrogen 38 mg/dL (9-20); Calcium 7.9 mg/dL (8.4-10.2); Carbon Dioxide 25 mmol/L (22-30); Chloride 102 mmol/L (98-107); Estimated CRCL calculation 50 ml/min; Estimated Glomerular Filt Rate 40; Glucose 88 mg/dL (65-110); Potassium 4.8 mmol/L (3.4-5.0); Sodium 132 mmol/L (137-145); Total Protein 5.9 g/dL (6.3-8.2)
[2025-03-18] MEDS: LEVOTHYROXINE SODIUM 25 MCG TABLET PO (06:03)
[2025-03-18] MEDS: IPRATROPIUM BR 0.02% INH SOLN 0.5 MG/2.5 ML VIAL INHALATION ×3 (07:46→20:48)
[2025-03-18] MEDS: PANTOPRAZOLE 40 MG TABLET PO (08:07)
[2025-03-18] MEDS: FUROSEMIDE 40 MG TABLET PO (08:07)
[2025-03-18] MEDS: LORATADINE 10 MG TABLET PO (08:07)
[2025-03-18] MEDS: LIDOCAINE 5% PATCH 2 PATCH TRANSDERM (08:08)
[2025-03-18] MEDS: SODIUM CHLORIDE 2% OP SOLN 15 ML BTL 1 DROP EACH EYE ×2 (08:09→20:07)
[2025-03-18] MEDS: FLUTICASONE PROPIONATE 0.05% NA SPR 16 GM BTL (*BKC) 2 SPRAY NASAL (08:09)
--- NOTE | 2025-03-18 10:04 | PM.IMPN ---
Progress Note: A&P Assessment and Plan (1) Witnessed seizure-like activity: Code(s): R56.9 - Unspecified convulsions Status: Acute (2) Aspiration pneumonia of left lower lobe: Qualifiers: Aspiration pneumonia type: unspecified Qualified Code(s): J69.0 - Pneumonitis due to inhalation of food and vomit Code(s): J69.0 - Pneumonitis due to inhalation of food and vomit Status: Acute (3) Abnormal finding on urinalysis: Code(s): R82.90 - Unspecified abnormal findings in urine Status: Acute Plan Seizure, unwitnessed Keppra 1500mg bid Neurology eval and recommendation noted Seizure precaution Accu-Cheks Ativan 2 mg IV p.r.n. q.6 hours for seizures Neurology following Aspiration pneumonia ruled out ID evaluated and noted no lung finding on chest xray Levaquin and Flagyl discontinued per ID monitor Reviewed chest X-Ray Allergic reaction to Unasyn Itching and redness markedly improved today with dicontinuing Unasyn yesterday Continue Levaquin and Flagyl, Vanc added s/p Claritin and prednisone ID following Recent VRE bacteremia repeat blood culture showed 4/4 bottles positive for Staph capitis but antibiogram shows resistance to Bactrim with one set, and susceptibility with the second, suggesting 2 distinct strains ECHO no vegetations, but showed EF 60-65% with diastolic dysfunction Repeat blood cultures still negative ID held Daptomycin contingent on the above, monitor off Daptomycin, if no significant changes in the next couple of days, will start discharge planning ID following Anemia Hb 8.5, rs/p 1 unit pRBC GI evaluation noted and no intervention indicated continue monitoring Acute renal failure, resolved to baseline CKD (Baseline cr 1.4 to 1.7 per nephrology) Cr 1.61 from 2.35 K 5.3 from 5.8 s/p Zirconium Nephrology following monitor Chronic respiratory failure Continue nighttime oxygen, 2 liters at nighttime Baseline DVT prophylaxis on SCDs due to possible GI bleed Subjective Date/time seen: 03/18/25 10:04 Interval history: Patient is off antibiotic. WBC and hemoglobin stable. Patient creatinine 1.67 baseline between 1-1.2. Patient has multiple comorbid condition and high risk candidate for readmission. Review of Systems Review of Systems: Unobtainable due to the patient's mental status Exam Narrative: Weight 131.5 kg BMI 38.2 Const: Other: Chronically ill-appearing but no acute distress, somnolent, chronically debilitated, morbidly obese, generalized anasarca, lying on the ER stretcher with head of bed at 20? HENMT: Other: Mucous membranes are dry, crowded posterior oropharynx Eyes: Other: Pupils are equal and reactive but patient does not track movement around the room Neck: Other: Large neck circumference, no JVD, thyroid goiter palpable larger on the left than the right (confirmed by prior CT scan 03/01/2025) Resp: Other: Sonorous respirations, periods of apnea, decreased breath sounds bilaterally, no increased work of breathing Cardio: Other: Regular rate, regular rhythm, no JVD GI: Other: Obese, distended, soft, positive bowel sounds, ostomy in the right abdomen with good output with the bag filled with gas : Other: Pereira catheter in place with drainage of clear urine Skin: Other: Erythema increased warmth to the medial left upper arm, some mild erythema to the right forearm but no increased warmth, anasarca changes to all extremities but bilateral upper extremities worse than lower extremities chronic, dried flaking skin bilateral feet, no foot wounds, thick yellow toenails Neuro: Other: Lethargic, difficult to arouse, does not follow commands but is moving bilateral upper extremities equally Extrem: Other: Pitting edema bilateral upper extremities, patient has well-healed scar on the left foot consistent with history of prior left great toe amputation, waffle boots in place bilaterally Psych: Other: Somnolent, difficult to arouse otherwise unable to assess due to patient condition Objective Data Vital Signs Vital Signs: Vital Signs - 24 hr 03/17/25 13:16 03/17/25 13:22 03/17/25 19:50 Temperature 97.8 F Pulse Rate 84 90 84 Respiratory Rate 16 16 16 Blood Pressure 114/84 Pulse Oximetry 97 Oxygen Delivery 03/17/25 19:51 03/17/25 19:55 03/17/25 19:58 Temperature 97.2 F L Pulse Rate 80 84 Respiratory Rate 16 20 Blood Pressure 128/45 L Pulse Oximetry 93 90 Oxygen Delivery Room Air 03/17/25 20:00 03/18/25 05:02 03/18/25 07:48 Temperature 97.1 F L Pulse Rate 74 81 Respiratory Rate 20 20 Blood Pressure 120/42 L Pulse Oximetry 90 97 92 Oxygen Delivery Room Air Room Air 03/18/25 07:48 03/18/25 07:55 Temperature Pulse Rate 81 74 Respiratory Rate 20 20 Blood Pressure Pulse Oximetry Oxygen Delivery Intake/Output Intake/Output: Intake & Output 03/15/25 03/16/25 03/17/25 03/18/25 23:59 23:59 23:59 23:59 Intake Total 1790 1300 2030 500 Output Total 3300 2150 2900 1250 Balance -1510 -850 -870 -750 Meds/Results Medications: Active Medications Generic Name Dose Route Start Last Admin Trade Name Freq PRN Reason Stop Dose Admin Acetaminophen 650 mg 03/05/25 23:48 03/15/25 20:29 Acetaminophen 325 Mg Tablet PO 650 mg Q4H PRN Administration Mild Pain (1-3) or Fever Apixaban 5 mg 03/07/25 21:00 03/10/25 08:40 Apixaban 5 Mg Tablet PO 5 mg On Hold: 03/10/25 12:38 Q12HR VAIBHAV Administration Diclofenac Sodium 1 applic 03/07/25 21:00 03/18/25 08:10 Diclofenac Sodium 1% 100 Gm Gel (*Bkc) TOPICAL Not Given Q12HR VAIBHAV Diltiazem HCl 30 mg 03/07/25 14:00 03/18/25 06:03 Diltiazem Hcl 30 Mg Tablet PO 30 mg Q8HR VAIBHAV Administration Diphenhydramine HCl 25 mg 03/07/25 08:21 03/08/25 21:10 Diphenhydramine Hcl Inj 50 Mg/Ml Vial IV PUSH 25 mg Q6HR PRN Administration Itching Fluticasone Propionate 2 spray 03/06/25 09:00 03/18/25 08:09 Fluticasone Propionate 0.05% Na Spr 16 Gm Btl (*Bkc) NASAL 2 spray DAILY VAIBHAV Administration Furosemide 40 mg 03/06/25 09:00 03/18/25 08:07 Furosemide 40 Mg Tablet PO 40 mg DAILY VAIBHAV Administration Hydrocortisone 1 applic 03/07/25 09:55 03/18/25 08:09 Hydrocortisone 1% 30 Gm Cream TOPICAL Not Given Q12HR VAIBHAV Hydroxyzine HCl 25 mg 03/08/25 00:55 03/15/25 22:27 Hydroxyzine Hcl 25 Mg Tablet PO 25 mg Q8H PRN Administration Itching Ipratropium [place] 0.5 mg 03/06/25 09:00 03/18/25 07:46 Ipratropium Br 0.02% Inh Soln 0.5 Mg/2.5 Ml Vial INHALATION 0.5 mg TIDRT VAIBHAV Administration Levetiracetam 1,500 mg 03/13/25 09:00 03/18/25 08:07 Levetiracetam 500 Mg Tablet PO 1,500 mg Q12HR VAIBHAV Administration Levothyroxine Sodium 25 mcg 03/07/25 06:30 03/18/25 06:03 Levothyroxine Sodium 25 Mcg Tablet PO 25 mcg DAILY@0630 VAIBHAV Administration Lidocaine 2 patch 03/07/25 09:00 03/18/25 08:08 Lidocaine 5% Patch TRANSDERM 2 patch DAILY [facility] Administration Loratadine 10 mg 03/07/25 09:55 03/18/25 08:07 Loratadine 10 Mg Tablet PO 10 mg QAM [facility] Administration Lorazepam 2 mg 03/09/25 11:25 Lorazepam (*Crx) 1 Mg Tablet BY MOUTH Q6H PRN seizures Melatonin 5 mg 03/17/25 21:15 03/17/25 21:27 Melatonin 5 Mg Tablet PO 5 mg HS VAIBHAV Administration Montelukast Sodium 10 mg 03/06/25 21:00 03/17/25 20:35 Montelukast Sodium 10 Mg Tablet PO 10 mg QHS VAIBHAV Administration Ondansetron HCl 4 mg 03/05/25 23:48 Ondansetron Inj 4 Mg/2 Ml Vial IV PUSH Q4H PRN Nausea Pantoprazole Sodium 40 mg 03/06/25 09:00 03/18/25 08:07 Pantoprazole 40 Mg Tablet PO 40 mg DAILY [facility] Administration Polyethylene Glycol 17 gm 03/07/25 21:00 03/17/25 20:35 Polyethylene Glycol 3350 17 Gm Powd.Pack PO Not Given HS VAIBHAV Simethicone 80 mg 03/06/25 08:15 Simethicone 80 Mg Tab.Chew PO Q6H PRN Abdominal Discomfort Sodium Chloride 1 applic 03/06/25 09:00 03/18/25 08:10 Sodium Chloride 5% Ophth Oint 3.5 Gm Tube EACH EYE Not Given QID [facility] Sodium Chloride 1 drop 03/09/25 21:00 03/18/25 08:09 Sodium Chloride 2% Op Soln 15 Ml Btl EACH EYE 1 drop Q12HR VAIBHAV Administration Radiology Results: ITS Impressions Head CT 03/05/25 21:31 Impression: No acute intracranial hemorrhage or suspicious mass effect. No cross-sectional imaging evidence to suggest the presence of intracranial abscess formation, as detailed above. Renal Ultrasound 03/10/25 19:19 Impression: 1: Bilateral renal cysts. Stable left renal cyst measuring 7.5 cm with rim calcification, likely benign given the lack of interval change from CT dated 08/07/2022. Chest X-Ray 03/11/25 08:12 Impression: 1: Interval progression of bilateral airspace disease, edema versus pneumonia. Clinically correlate. Labs Labs: Laboratory Results - last 24 hr 03/18/25 04:34 WBC 9.0 RBC 2.73 L Hgb 7.7 L Hct 24.4 L MCV 89.4 MCH 28.2 MCHC 31.6 L RDW 16.9 H Plt Count 164 MPV 9.0 Sodium 132 L Potassium 4.8 Chloride 102 Carbon Dioxide 25 Anion Gap 5 BUN 38 H Creatinine 1.67 H Estim Creat Clear Calc 50 Estimated GFR 40 L Glucose 88 Calcium 7.9 L Total Bilirubin 0.4 AST 18 ALT 21 Alkaline Phosphatase 159 H Total Protein 5.9 L Albumin 2.7 L Quality VTE Prophylaxis VTE prophylaxis: pharmacologic ordered (Continue home Eliquis.) Hospitalist [facility] Advance Care Plan I have confirmed that the patient's Advanced Care Plan is present, code status is documented, or surrogate decision maker is listed in patient medical record.: Yes Medication Reconciliation I have utilized all available resources to obtain, update and review the patients current medications (includes all prescriptions, OTC, herbals, cannabis, and nutritional supplements).: Yes
[2025-03-18] MEDS: MELATONIN 5 MG TABLET PO (20:06)
[2025-03-18] MEDS: MONTELUKAST SODIUM 10 MG TABLET PO (20:07)
[2025-03-18] MEDS: SIMETHICONE 80 MG TAB.CHEW PO (20:07)
[2025-03-18] MEDS: HYDROCORTISONE 1% 30 GM CREAM 1 APPLIC TOPICAL (20:08)
[2025-03-18] MEDS: LORazepam (*CRX) 0.5 MG TABLET PO (23:10)
[2025-03-19] MEDS: LEVOTHYROXINE SODIUM 25 MCG TABLET PO (05:32)
--- NOTE | 2025-03-19 07:46 | P.DS_ITS ---
DS: Admitting Diagnosis Discharge Date 03/19/2025 Admitting Diagnosis Unresponsiveness DS: Discharge Diagnosis Discharge Diagnosis (1) Witnessed seizure-like activity: Code(s): R56.9 - Unspecified convulsions Status: Acute Assessment and Plan: Please refer to hospital course for brief summary Main events: Patient Eliquis has been held during hospitalization due to a drop in hemoglobin. GI evaluated the patient and believes the drop in hemoglobin is multifactorial, particularly driven by chronic renal failure, dilutional, and fluid overload. Can perform semi-elective EGD if necessary once his seizure is resolved. The patient needs to follow up with GI as an outpatient. Patient's baclofen is being held due to increased confusion. Keppra dosage has been increased from 750-1500 mg p.o. b.i.d. due to seizure activity. The patient has a chronic Pereira catheter, which was changed on 03/08/2025. Regarding creatinine, patients need to follow up with nephrology. His creatinine is stable at 1.6, although his previous baseline was around 1. His new baseline will be around 1.6. His blood culture showed MRSA Staph capitis, but ID believes it is possible contamination. The patient also had isolated Enterococcus faecalis bacteremia, but repeat cultures were negative. The transthoracic echocardiogram was negative for any vegetation. The patient also developed erythroderma during the hospitalization, which we believe is due to Unasyn. Patient had left lower lobe infiltrate, but ID believes it is not active pneumonia. (2) Aspiration pneumonia of left lower lobe: Qualifiers: Aspiration pneumonia type: unspecified Qualified Code(s): J69.0 - Pneumonitis due to inhalation of food and vomit Code(s): J69.0 - Pneumonitis due to inhalation of food and vomit Status: Acute (3) Abnormal finding on urinalysis: Code(s): R82.90 - Unspecified abnormal findings in urine Status: Acute DS: Summary Hospital Course Hospital Course: 74-year-old male with a past medical history of COPD, CHF, paraplegia with neurogenic bladder and chronic indwelling Pereira catheter, chronic kidney disease stage 3 among other comorbidities who presented to the ER from [facility] due to being unresponsive. On arrival to the ER the patient was responsive to painful stimuli of the and would was briefly wake up in ask what and occasionally would answer his name. However the patient was not following commands. He was moving the his bilateral lower extremities equally. The patient was afebrile and had unlabored respirations. However he was noted to have episodes of apnea at the time of my evaluation with apneic events lasting 12-15 seconds. The patient did have son wrist respirations. He has been afebrile. He was recently admitted and treated for VRE bacteremia when 1 of his 2 blood cultures grew out VRE. His repeat blood cultures were negative. The patient has chronic indwelling Pereira catheter that was exchanged in the ER. She the patient was recently also treated for encephalopathy verses seizure. He had EEG at that time did not demonstrate any epileptiform events. The patient was started on Keppra after evaluation by Neurology. He at the time my evaluation the patient was not wearing oxygen and was saturating she 95-100%. Bedtime patient arrived to the IMU he had desaturated down to 45% while having an episode apnea. Subsequently patient was started on BiPAP. After a been on BiPAP for a couple of hours the patient woke up in started fighting would not leave BiPAP in place. The patient has evidently had significant decline in his functional status over the last several months and was placed on hospice at the time of his last hospitalization at which time family revoked hospice. ER physician did discuss patient's condition with the family in they wanted the patient to have treatment for encephalopathy and or seizure and further evaluation dizzy bleeding figure out the reason for the patient's symptoms. But the patient's code status is to remain DNR/DNI patient was admitted for further evaluation in the setting. Patient has been treated in hospital for the following condition: Seizure, unwitnessed Keppra 1500mg bid Neurology eval and recommendation noted Seizure precaution Accu-Cheks Ativan 2 mg IV p.r.n. q.6 hours for seizures Neurology following Aspiration pneumonia ruled out ID evaluated and noted no lung finding on chest xray Levaquin and Flagyl discontinued per ID monitor Reviewed chest X-Ray Allergic reaction to Unasyn Itching and redness markedly improved today with discontinuing Unasyn yesterday S/P Levaquin and Flagyl, Vanc s/p Claritin and prednisone ID following Recent VRE bacteremia repeat blood culture showed 4/4 bottles positive for Staph capitis but antibiog sai shows resistance to Bactrim with one set, and susceptibility with the second, suggesting 2 distinct strains ECHO no vegetations, but showed EF 60-65% with diastolic dysfunction Repeat blood cultures still negative ID held Daptomycin contingent on the above, monitor off Daptomycin, if no significant changes in the next couple of days ID following Anemia S/P 1 unit pRBC GI evaluation noted and no intervention indicated continue monitoring Acute renal failure, resolved to baseline CKD (Baseline cr 1.4 to 1.7 per nephrology) Cr 1.61 from 2.35 s/p Zirconium Nephrology following monitor Chronic respiratory failure Continue nighttime oxygen, 2 liters at nighttime Baseline Main events: Patient Eliquis has been held during hospitalization due to a drop in hemoglobin. GI evaluated the patient and believes the drop in hemoglobin is multifactorial, particularly driven by chronic renal failure, dilutional, and fluid overload. Can perform semi-elective EGD if necessary once his seizure is resolved. The patient needs to follow up with GI as an outpatient. Patient's baclofen is being held due to increased confusion. Keppra dosage has been increased from 750-1500 mg p.o. b.i.d. due to seizure activity. The patient has a chronic Pereira catheter, which was changed on 03/08/2025. Regarding creatinine, patients need to follow up with nephrology. His creatinine is stable at 1.6, although his previous baseline was around 1. His new baseline will be around 1.6. His blood culture showed MRSA Staph capitis, but ID believes it is possible contamination. The patient also had isolated Enterococcus faecalis bacteremia, but repeat cultures were negative. The transthoracic echocardiogram was negative for any vegetation. The patient also developed erythroderma during the hospitalization, which we believe is due to Unasyn. Patient had left lower lobe infiltrate, but ID believes it is not active pneumonia. Patient is a high risk candidate for readmission due to multiple comorbid conditions. On the day of discharge, the patient was seen and examined. Vital signs were stable. Physical exam were stable and labs were reviewed at length. Discharge instructions, medications, and follow-up appointments were discussed with the patient at length and all day questions were answered. ER warnings were given. Called her daughter Ms. Sauer and left a voicemail yesterday and today. Had a very long discussion with the his daughter Ms. Goldstein including hospice and further plan after the discharge. She agrees with the discharge. Status at Discharge Cognitive/behavioral status at discharge: Stable Time Spent with Patient Time attestation: Total time spent providing and/or coordinating discharge services:45 minutes Exam Narrative: Weight 131.5 kg BMI 38.2 Const: Other: Chronically ill-appearing but no acute distress, somnolent, chronically debilitated, morbidly obese, generalized anasarca, lying on the ER stretcher with head of bed at 20? HENMT: Other: Mucous membranes are dry, crowded posterior oropharynx Eyes: Other: Pupils are equal and reactive but patient does not track movement around the room Neck: Other: Large neck circumference, no JVD, thyroid goiter palpable larger on the left than the right (confirmed by prior CT scan 03/01/2025) Resp: Other: Sonorous respirations, periods of apnea, decreased breath sounds bilaterally, no increased work of breathing Cardio: Other: Regular rate, regular rhythm, no JVD GI: Other: Obese, distended, soft, positive bowel sounds, ostomy in the right abdomen with good output with the bag filled with gas : Other: Pereira catheter in place with drainage of clear urine Skin: Other: Erythema increased warmth to the medial left upper arm, some mild erythema to the right forearm but no increased warmth, anasarca changes to all extremities but bilateral upper extremities worse than lower extremities chronic, dried flaking skin bilateral feet, no foot wounds, thick yellow toenails Neuro: Other: Lethargic, difficult to arouse, does not follow commands but is moving bilateral upper extremities equally Extrem: Other: Pitting edema bilateral upper extremities, patient has well-healed scar on the left foot consistent with history of prior left great toe amputation, waffle boots in place bilaterally Psych: Other: Somnolent, difficult to arouse otherwise unable to assess due to patient condition DS: Data Imaging Radiologist's impression: ITS Impressions Chest X-Ray 03/05/25 21:12 IMPRESSION: Left lower lobe infiltrate. Head CT 03/05/25 21:31 Impression: No acute intracranial hemorrhage or suspicious mass effect. No cross-sectional imaging evidence to suggest the presence of intracranial abscess formation, as detailed above. Renal Ultrasound 03/10/25 19:19 Impression: 1: Bilateral renal cysts. Stable left renal cyst measuring 7.5 cm with rim calcification, likely benign given the lack of interval change from CT dated 08/07/2022. Chest X-Ray 03/11/25 08:12 Impression: 1: Interval progression of bilateral airspace disease, edema versus pneumonia. Clinically correlate. Discharge Plan Discharge Attending physician on discharge: Poncho Bansal Consulting providers: Obi Larsen; Aniceto Pan; Saturnino Carroll; Tiara López Discharging Clinician: Poncho Bansal Anticipated Discharge Date/Time: 03/19/25 08:24 Patient Disposition: NH Shelter/Asst Living Activity: as tolerated Diet: heart healthy and other - see discharge instructions Discharge Instructions: Minced and Moist ,Level 5 Diet Baclofen is held and continued at the discretion of the PCP Keppra dose has been increased from 750 mg PO BID to 1500 mg PO BID Eliquis has been withheld due to a drop in Hgb.Continue only at the discretion of PCP. Consider hospice evaluation. Ordered CBC and perform within a week and please follow-up the results with PCP. Check blood pressure 1 to 2 times a day. Record and bring into your doctor for review. Call your doctor if your blood pressure is greater than 180/110 or less than 90/45. Walk with cane or other assist device. Take precautions to avoid falls. Rise slowly from a lying or sitting position. Pause before standing or walking. Contact your doctor or call 911 and come to the Emergency Room if you have any type of trauma, lightheadedness with standing or other worrisome symptoms. Avoid NSAIDs (ibuprofen, naproxen, Aleve). Tylenol is safe to take. Follow-up with your primary care provider in 1-2 weeks. Please call for appointment. Follow-up with Cardiology in 2-4 weeks. Please call for an appointment. Thank you for using [facility] for your health care needs. Patient Instructions: Antibiotic Form, Apixaban (By mouth) Patient Language: [place] Stand Alone Forms: General Discharge Information Follow-up/Referrals: Williams,Bessie SIBLEY [Other] Tiara López MD [Physician, Nephrology] Aniceto Pan MD [Physician, Infectious Disease] Saturnino Carroll MD [Physician, Neurology] Obi Larsen MD [Physician, Family Practice] Referral Note: Baclofen is held and continued at the discretion of the PCP Keppra dose has been increased from 750 mg PO BID to 1500 mg PO BID Eliquis has been withheld due to a drop in Hgb.Continue only at the discretion of PCP. Consider hospice evaluation. Discharge Medications: New levetiracetam [Keppra] 500 mg Tablet 1,500 mg PO Q12HR Qty: 30 0RF hydrocortisone 1 % Cream 1 applic topical Q12HR Qty: 10 0RF Continued Zyrtec 10 mg capsule 10 mg PO DAILY PRN (Reason: Allergy Symptoms) gabapentin 100 mg capsule 200 mg PO DAILY omeprazole 20 mg capsule,delayed release(DR/EC) 20 mg PO DAILY simethicone [Gas Relief (simethicone)] 80 mg tablet,chewable 80 mg PO Q6H PRN (Reason: Abdominal Discomfort) Rx Instructions: after meals montelukast [Singulair] 10 mg tablet 10 mg PO QHS acetaminophen 500 mg capsule 1,000 mg PO Q6H PRN (Reason: pain) Patient Comments: ... guaifenesin 400 mg tablet 400 mg PO QHS cyanocobalamin (vitamin B-12) 1,000 mcg tablet 1,000 mcg PO DAILY calcium carbonate [Antacid (calcium carbonate)] 200 mg calcium (500 mg) tablet,chewable 200 mg PO TID diclofenac sodium [Voltaren Arthritis Pain] 1 % gel 2 g topical BID Rx Instructions: apply to single elbow, wrist or hand; for hand includes palm/fingers/back of hand Mucinex DM 30-600 mg tablet extended release 12 hr 1 tablet PO Q12H PRN (Reason: cough) sodium chloride [Vanessa 128] 5 % ointment 1 applic EACH EYE QID ferrous sulfate 325 mg (65 mg iron) Tablet 325 mg PO BID ascorbic acid (vitamin C) 500 mg Capsule, Extended Release 500 mg PO DAILY polyethylene glycol 3350 [Miralax] 17 gram Powder In Packet 17 g PO QPM levothyroxine 25 mcg tablet 25 mcg PO DAILY cholecalciferol (vitamin D3) 1,000 units 25 mcg PO DAILY diltiazem HCl 30 mg tablet 30 mg PO TID Patient Comments: Called detention they said medication is PRN but could not give me an indication. Rx Instructions: HOLD IF HR<50 OR SBP<100 docusate sodium [Colace] 100 mg capsule 100 mg PO BID PRN (Reason: constipation) LidozenPatch(lido HCl-menthol) 4-1 % adhesive patch,medicated 1 patch topical DAILY Patient Comments: uses 2 patches to right shoulder Rx Instructions: may leave on area for up to 8 hrs ipratropium bromide 0.02 % solution 2.5 ml inhalation TID fluticasone propionate [Flonase Allergy Relief] 50 mcg/actuation spray,suspension 2 spray intranasal DAILY Rx Instructions: administer into each nostril furosemide 40 mg tablet 40 mg PO DAILY Held baclofen 10 mg tablet 15 mg PO QID Hold Instructions: Resume on 03/26/25. Please continue after discussing with PCP Rx Instructions: 0800,1200,1600,2000 Eliquis 5 mg tablet 5 mg PO BID Hold Instructions: Resume on 04/18/25. Patient Eliquis was held due to suspicious GI bleed. Continued the discussion of PCP. Discontinued multivitamin Tablet 1 tablet PO DAILY atorvastatin 10 mg Tablet 10 mg PO HS levetiracetam [Keppra] 750 mg tablet 750 mg PO BID Qty: 60 0RF Other Ambulatory Orders: Complete Blood Count no Diff (Routine) Timeframe: 1 Week Location: Determined by Patient Ordered By: Poncho Bansal Date of admission: 03/05/25 23:48 Primary Care Provider: JinnyBessie MD Admitting Provider: Symone Lee Attending physician on admission: Symone Lee Condition: Guarded Prognosis
[2025-03-19 07:48] LABS: Hematocrit 25.1 % (42.0-52.0); Hemoglobin 7.9 g/dL (14.0-18.0); Mean Corpuscular HGB Conc 31.5 g/dl (32-36); Mean Corpuscular Hemoglobin 28.1 pg (26-34); Mean Corpuscular Volume 89.3 fl (80-100); Platelet Count Result 185 k/mm3 (150-375); Red Blood Count 2.81 M/mm3 (4.6-6.20); White Blood Count 7.9 K/mm3 (4.5-10.0)
[2025-03-19 08:15] LABS: Alanine Aminotransferase 31 U/L (6-50); Albumin Level 2.9 g/dL (3.5-5.1); Alkaline Phosphatase 191 U/L (38-126); Anion Gap 5 mmol/L (4-12); Aspartate Amino Transferase 28 U/L (17-59); Bilirubin,Total 0.4 mg/dL (0.2-1.3); Blood Urea Nitrogen 32 mg/dL (9-20); Calcium 8.1 mg/dL (8.4-10.2); Carbon Dioxide 28 mmol/L (22-30); Chloride 100 mmol/L (98-107); Estimated CRCL calculation 48 ml/min; Estimated Glomerular Filt Rate 39; Glucose 92 mg/dL (65-110); Potassium 4.6 mmol/L (3.4-5.0); Sodium 133 mmol/L (137-145); Total Protein 6.1 g/dL (6.3-8.2)
[2025-03-19] MEDS: IPRATROPIUM BR 0.02% INH SOLN 0.5 MG/2.5 ML VIAL INHALATION ×2 (08:22→13:58)
[2025-03-19 08:23] VITALS: PULSE 86; RESP 20; O2SAT 94
[2025-03-19 08:30] VITALS: PULSE 82; RESP 20
[2025-03-19] MEDS: FUROSEMIDE 40 MG TABLET PO (10:07)
[2025-03-19] MEDS: LORATADINE 10 MG TABLET PO (10:07)
[2025-03-19] MEDS: PANTOPRAZOLE 40 MG TABLET PO (10:07)
[2025-03-19] MEDS: LIDOCAINE 5% PATCH 2 PATCH TRANSDERM (10:07)
[2025-03-19] MEDS: SODIUM CHLORIDE 2% OP SOLN 15 ML BTL 1 DROP EACH EYE (10:08)
[2025-03-19] MEDS: FLUTICASONE PROPIONATE 0.05% NA SPR 16 GM BTL (*BKC) 2 SPRAY NASAL (10:08)
[2025-03-19 10:15] VITALS: BP 105/42; PULSE 83; O2SAT 96
[2025-03-19 13:18] VITALS: BP 123/44; PULSE 81; RESP 18; O2SAT 95
[2025-03-19 13:58] VITALS: PULSE 83; RESP 20; O2SAT 94
[2025-03-19 14:05] VITALS: PULSE 85; RESP 20
== END 2025-03-19 16:39 | DRG 100 ==
LOC: ANHED 20:44 → ANHIMU 03-06 00:07 → ANH2MED 03-09 16:33
PROVIDERS: Internal Medicine; Internal Medicine Infectious Disease; Internal Medicine Nephrology; Admitting Provider Internal Medicine; Emergency Provider Student in an Organized Health Care Education/Training Program; Visit Provider General Practice
DX: G40.909 Epilepsy, unspecified, not intractable, without status epilepticus (principal); G92.8 Other toxic encephalopathy; E87.1 Hypo-osmolality and hyponatremia; J96.11 Chronic respiratory failure with hypoxia; G82.22 Paraplegia, incomplete; R78.81 Bacteremia; N17.9 Acute kidney failure, unspecified; I13.0 Hypertensive heart and chronic kidney disease with heart failure and stage 1 through stage 4 chronic kidney disease, or unspecified chronic kidney disease; I50.32 Chronic diastolic (congestive) heart failure; I48.0 Paroxysmal atrial fibrillation; V29.99XS Rider (driver) (passenger) of other motorcycle injured in unspecified traffic accident, sequela; Z79.01 Long term (current) use of anticoagulants; Z87.891 Personal history of nicotine dependence; S24.154S Other incomplete lesion at T11-T12 level of thoracic spinal cord, sequela; S34.121 Incomplete lesion of L1 level of lumbar spinal cord; N31.9 Neuromuscular dysfunction of bladder, unspecified; J43.9 Emphysema, unspecified; E03.9 Hypothyroidism, unspecified; E53.8 Deficiency of other specified B group vitamins; K21.9 Gastro-esophageal reflux disease without esophagitis; L27.0 Generalized skin eruption due to drugs and medicaments taken internally; J44.9 Chronic obstructive pulmonary disease, unspecified; D64.9 Anemia, unspecified; T36.0X5A Adverse effect of penicillins, initial encounter; B95.7 Other staphylococcus as the cause of diseases classified elsewhere; D63.1 Anemia in chronic kidney disease; N18.30 Chronic kidney disease, stage 3 unspecified; E87.5 Hyperkalemia; Z89.412 Acquired absence of left great toe; Z93.2 Ileostomy status; Z99.81 Dependence on supplemental oxygen; Z90.49 Acquired absence of other specified parts of digestive tract
CPT/HCPCS: 36415; 36430; 36600; 70470; 71045; 76770; 80048; 80053; 81001; 81050; 82274; 82550; 82570; 82803; 82805; 82948; 83605; 83735; 83880; 84100; 84156; 84300; 84540; 85018; 85025; 85027; 85055; 85610; 85730; 85999; 86850; 86900; 86901; 86923; 87040; 87086; 92526; 92610; 93005; 93306; 94002; 94640; 96365; 97166; 99285; A9270; J0295; J0878; J1200; J1836; J1938; J1953; J1956; J2020; J2919; J3373; J3475; J7030; J7050; J7120; J7512; P9016; Q5105; Q9967

== ENCOUNTER 2025-04-07 15:03 | Inpatient (IN) | payer MEDICARE, BC, MEDICAID, SELFPAY ==
[2025-04-07] VITALS (8 sets, daily range): BP systolic 109–173; BP diastolic 49–93; PULSE 85–104; RESP 15–19; TEMP 36.4–36.6; O2SAT 96–99; BMI 35.6
--- NOTE | ~2025-04-07 | CT_ITS ---
EXAMINATION: CT brain wo mira, 04/07/2025 17:00 CDT HISTORY: Altered mental status COMPARISON: No comparisons available. Technique: Axial images obtained of the brain without contrast. One or more of the following dose reduction techniques were used: automated exposure control, adjustment of the mA and/or kV according to patient size, use of iterative reconstruction technique. Findings: No acute infarct or parenchymal hemorrhage. No abnormal mass or mass effect. No midline shift. No extra-axial fluid collections. No hydrocephalus. Mastoid air cells unremarkable. Sinuses and orbits unremarkable. No acute fracture. No significant facial or scalp soft tissue swelling evident. No radiopaque foreign body is seen. Impression: 1.No acute intracranial abnormality. Reviewed, dictated and finalized at location A. Impression: 1.No acute intracranial abnormality.
--- NOTE | ~2025-04-07 | XR_ITS ---
EXAMINATION: XR chest 1V, 04/10/2025 9:40 CDT HISTORY: f/u [facility] COMPARISON: No comparisons available. Technique: Single view. Findings: The lungs are clear, no effusion. No pneumothorax. Heart is normal size. Mediastinal and hilar contours are within normal limits. Bony thorax no acute abnormality. Impression: No acute cardiopulmonary abnormality. Reviewed, dictated and finalized at location A. Impression: No acute cardiopulmonary abnormality.
--- NOTE | ~2025-04-07 | XR_ITS ---
MODIFIED ESOPHAGRAM HISTORY: Recurrent pneumonia TECHNIQUE: Modified barium esophagram was performed on 04/10/2025. I administered fluoroscopy and performed the exam with speech pathologist. Patient was seated for lateral fluoroscopic imaging for ingestion of thin liquids, pudding, solids and quantified amounts, followed by thin liquids in uncontrolled amounts. This was recorded on tape. A single fluoroscopic spot image was also recorded. The DAP for this procedure was 1.519 Gycm2. The amount of fluoroscopy time used during this procedure was 1.8 minutes. FINDINGS: Oral stage: Adequate function. Pharyngeal stage: Transient trace/flash laryngeal penetration without aspiration. Cervical/esophageal stage: Adequate function. IMPRESSION: Transient trace/flash laryngeal penetration without aspiration. Please correlate with speech pathologist findings and specific feeding recommendations. Reviewed, dictated and finalized at location A. IMPRESSION: Transient trace/flash laryngeal penetration without aspiration. Pl ease correlate with speech pathologist findings and specific feeding recommenda tions.
--- NOTE | ~2025-04-07 | XR_ITS ---
EXAMINATION: XR chest 1V portable COMPARISON: No comparisons available. HISTORY: Altered mental status FINDINGS: Scattered bilateral infiltrates. No pneumothorax. Heart is normal size. Mediastinal and hilar contours are within normal limits. Bony thorax no acute abnormality. Miscellaneous: None Impression: Early bilateral pneumonia Reviewed, dictated and finalized at location A. Impression: Early bilateral pneumonia
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
--- NOTE | 2025-04-07 16:14 | ECG_ITS ---
Test Date: 2025-04-07 17:44:26 Measurements Intervals [place] Rate: 97 P: 71 MS: 157 QRS: 25 QRSD: 109 T: 39 QT: 321 QTc: 408 Interpretive Statements POOR QUALITY TRACING BECAUSE OF BASELINE ARTIFACT SINUS RHYTHM NONSPECIFIC INTRAVENTRICULAR CONDUCTION DELAY ABNORMAL ECG Compared to ECG 03/05/2025 20:36:11 NO OBVIOUS CHANGE, COMPARISON CHALLENGING BECAUSE OF POOR TRACING QUALITY Electronically Signed On 04-08-2025 08:35:54 CDT by Reji Coker M.D.
[2025-04-07 16:30] LABS: Alveolar/Arterial O2 Gradient 30.5 mmHg; Fractional Inspired Oxygen 21 %; HCO3 ABG 24.3 mEq/l (22.0-26.0); Oxygen Content ABG 14.0 %vol (16.0-22.0); Oxygen Saturation ABG 94.9 % (95.0-100.0); PCO2 ABG 38.7 mmHg (35.0-45.0); PO2 ABG 72.9 mmHg (80.0-100.0); PO2 FiO2 Ratio Arterial Blood 3.47 %
[2025-04-07 16:32] LABS: Liters per Minute 0.0 LPM; Modified Allen's Test Pass; Site Drawn RIGHT RADIAL
--- OUTSIDE RECORDS SUMMARY | 2025-04-07 16:56 | XMS_ITS | Clinical Summary ---
Author Organization [email or web address] Address [address] [place] [address] Care Team Providers Care Safe Deposit Box Rental Clerk Name Role Phone Ba Ramirez MD Primary Care Provider Source Comments [email or web address],non-owned Affiliates and Associated Physician Practices is amultiple site organization consisting of ambulatory clinics and hospital sitesin [place], [place], [place] and [place]. This disclosure is being madepursuant to the Care Everywhere program and may not contain all information available regarding this patient. 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 Gender Identity Not on file Sexual Orientation [...] 12/19/1999 ZOSTER VACCINE (1 of 2) 12/19/1999 DEPRESSION SCREENING 07/20/2024 Respiratory Syncytial Virus (RSV) Vaccine Pt: or over 60 yrs (1 - 1-dose 75+ series) 2024 COVID-19 VACCINE (2 - 2024-2 6 season) 2025 08/11/2020 INFLUENZA VACCINE (#1) 2025 9, 02/28/2014 HEPATITIS [...] age to complete this topic Insurance MEDICARE [facility] MEDICAID - [place] MEDICARE [facility] Care Teams Safe Deposit Box Rental Clerk Relationship Specialty Start Date End Date Ba Ramirez MD [address] [place] [address] PCP - General Internal Medicine 09/08/19
--- OUTSIDE RECORDS SUMMARY | 2025-04-07 16:56 | XMS_ITS | Clinical Summary ---
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 Pulse - - Temperature 36.2 C (97.2 F) 06/09/2022 9:10 AM MUSHROOM GROWTH MEDIA MIXER Respiratory Rate 18 06/09/2022 9:10 AM MUSHROOM GROWTH MEDIA MIXER Oxygen Saturation - - Inhaled Oxygen Concentration - - Weight 136 kg (300 lb) 06/09/2022 9:10 AM MUSHROOM GROWTH MEDIA MIXER Height 188 cm (6' 2) 06/09/2022 9:10 AM MUSHROOM GROWTH MEDIA MIXER Body Mass Index 38.52 06/09/2022 9:10 AM MUSHROOM GROWTH MEDIA MIXER Plan of Treatment Health Maintenance Due Date Last Done Comments COVID-19 Vaccine (2024- season) 2025 Influenza Vaccine (#1) 2025 04/19/2019 Pneumococcal PPSV23/PCV13 65 + Years / Low and Medium Risk Completed 08/15/2019, 06/07/2015, 05/02/2004 [place] [address] MEDICARE [place]ICAID - [place] Care Teams Human Intelligence Relationship Specialty Start Date End Date Ba Ramirez MD [address] [place] [id number] PCP - General Internal Medicine 11/26/20
--- OUTSIDE RECORDS SUMMARY | 2025-04-07 16:56 | XMS_ITS | Clinical Summary ---
[facility] Organization [facility] Address [address] [place] [address] Care Team Providers Care Process Improvement Manager Name Role Phone Ba Ramirez MD Primary Care Provider [phone] Allergies Active Allergy Reactions Criticality Noted Date [...] Encounters Date Type Department Care Team Description 04/03/2025 Orders Only [facility] - [address] [place] [phone] Jose Arias MD Chronic anemia 03/21/2025 External Device Data STL ABSTRACTION Provider, Abstract 03/20/2025 Orders Only [facility] - [place] [address] [place] [phone] Jose Arias MD Chronic anemia 03/06/2025 Orders Only [facility] - [address] [place] [address] Jose Arias MD Chronic anemia 02/20/2025 Orders Only [facility] - [address] [place] [phone] Jose Arias MD Chronic anemia 02/06/2025 Orders Only [facility] - [address] [place] [address] Jose Arias MD Chronic anemia 02/01/2025 External Device Data STL ABSTRACTION Provider, Abstract 01/31/2025 External Device Data STL ABSTRACTION Provider, Abstract 01/23/2025 Orders Only [facility] - [address] [place] [address] Jose Arias MD Chronic anemia 01/17/2025 External Device Data STL ABSTRACTION Provider, Abstract 01/09/2025 Orders Only [facility] - [address] [place] [address] Jose Arias MD Chronic anemia from Last [...] Care Team (Late st Contact Info) Description 04/24/2025 9:45 AM CDT Office Visit [facility] - [address] [facility] [address] [place] [address] Jose Arias MD [address] [facility] [address] [place] [address] Health Maintenance Due Date Last Done Comments ZOSTER VACCINE (1 of 2) 12/19/1999 Abdominal Aortic Aneurysm (A AA) Screening 2014 RSV VACCINE (60+ or ) (1 - 1-dose 75+ series) 2024 INFLUENZA VACCINE (#1) 2025 9, 02/28/2014, 02/28/2014 DTAP/TDAP/TD VACCINES (2 - T d or Tdap) 06/07/2025 06/07/2015 PNEUMOCOCCAL VACCINE 50+ YEARS Completed 0 08/15/2019, 06/07/2015, 05/02/2004 Insurance MEDICAID [place] MED[place]ARE PART A AND [facility] Advance Directives For more information, please contact: [phone] Documents on File Type Date Recorded Patient Pantry Goods Maker Expl anation Advance Directive POA 02/17/2024 8:01 AM A dvance Directive POA Care Teams Process Improvement Manager Relationship Specialty Start Date End Date Ba Ramirez MD PCP - General Internal Medicine 06/17/22
[2025-04-07 17:52] LABS: Hematocrit 29.4 % (42.0-52.0); Hemoglobin 9.6 g/dL (14.0-18.0); Immature Granulocyte Percent A 0.4 % (0-0.5); Lymphocytes Absolute Auto 1.59 K/mm3 (0.9-3.2); Mean Corpuscular HGB Conc 32.7 g/dl (32-36); Mean Corpuscular Hemoglobin 28.3 pg (26-34); Mean Corpuscular Volume 86.7 fl (80-100); Nucleated Red Blood Cells Absolute Auto 0.000 K/mm3 (0.0-0.012); Nucleated Red Blood Cells Perc 0.0 % (0.0-0.2); Platelet Count Result 290 k/mm3 (150-375); Red Blood Count 3.39 M/mm3 (4.6-6.20); White Blood Count 17.8 K/mm3 (4.5-10.0)
[2025-04-07 18:05] LABS: Salicylate < 1.0 mg/dL (2-20)
[2025-04-07 18:08] LABS: INR 1.7; Prothrombin Time 19.6 Seconds (11.1-14.7)
[2025-04-07 18:09] LABS: Partial Thromboplastin Time 40.9 Seconds (22.3-36.8)
[2025-04-07 18:12] LABS: Alanine Aminotransferase 16 U/L (6-50); Albumin Level 3.3 g/dL (3.5-5.1); Alkaline Phosphatase 233 U/L (38-126); Anion Gap 11 mmol/L (4-12); Aspartate Amino Transferase 15 U/L (17-59); Bilirubin,Total 0.6 mg/dL (0.2-1.3); Blood Urea Nitrogen 36 mg/dL (9-20); Calcium 8.3 mg/dL (8.4-10.2); Carbon Dioxide 24 mmol/L (22-30); Chloride 96 mmol/L (98-107); Creatine Kinase < 20 U/L (55-170); Estimated CRCL calculation 38 ml/min; Estimated Glomerular Filt Rate 29; Glucose 102 mg/dL (65-110); Potassium 4.5 mmol/L (3.4-5.0); Sodium 131 mmol/L (137-145); Total Protein 7.2 g/dL (6.3-8.2)
--- NOTE | 2025-04-07 18:25 | PC.NURSE ---
phlebotomy called for blood cultures that were unable to be drawn after multiple attempts.
--- NOTE | 2025-04-07 18:38 | PC.NURSE ---
phlebotomy called to obtain blood cultures
[2025-04-07 18:45] LABS: Thyroid Stimulating Hormone 2.970 uIU/mL (0.465-4.680)
--- NOTE | 2025-04-07 18:58 | PC.NURSE ---
patient cowan catheter exchanged for a new one, immediately drained 2000mL from cowan bag.
[2025-04-07 19:14] LABS: Add Urine Microscopic? YES; Appearance Urine Turbid (Clear); Glucose Urine UA Negative (Negative); Leukocyte Esterase Ur 3+ LEU/UL (Negative); Nitrate Urine Negative (Negative); Non Pathogenic Casts 0-2; Specific Grav Ur 1.011 (1.001-1.035)
[2025-04-07] MEDS: SODIUM CHLORIDE 0.9% IV 1,000 ML 999 ML IV CONT (19:21)
[2025-04-07 19:36] LABS: Cannabinoid Screen Urine Negative (Negative)
--- NOTE | 2025-04-07 19:39 | ADMGEN ---
This patient, Bob Simmons, was admitted to Medical Room 255-. Patient/family oriented to hospital policies and general routines including ID bracelet, bed and alarms, visiting hours, pain management, procedures, bathroom and other care routines, personal items, smoking policy, room service/diet, and visiting hours. Information on how to activate the Rapid Response Team has been discussed. Patient/Family are encouraged to report perceived risks to care and to ask questions if they do not understand what they are told or what they should do.
--- NOTE | 2025-04-07 20:03 | WNDPHOTO ---
PHOTO ONLY - See Nursing Notes and/ or assessments for documentation.
--- NOTE | 2025-04-07 20:06 | WNDPHOTO ---
PHOTO ONLY - See Nursing Notes and/ or assessments for documentation.
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
--- NOTE | 2025-04-07 21:18 | PC.NURSE ---
Admission completed via recall and confirmed with patient's daughter, Natalie, who is listed as POA. Code status was questioned r/t POLST form that was present in admission papers; PER Natalie, patient is to be a modified code with medication only. Provider Coby Thompson was present and also discussed code status with Natalie and confirmed orders for MODIFIED CODE. custodial orders r/t fluid restriction, wound care, request for specialty mattress, medication, and supplemental O2 discussed with hospitalist, Elsy Mcpherson.
[2025-04-07] MEDS: levoFLOXacin 750 MG/D5W 150 ML 750 MG/150 ML BAG 100 MG IVPB (21:36)
[2025-04-07 22:30] LABS: Hematocrit 24.4 % (42.0-52.0); Hemoglobin 8.0 g/dL (14.0-18.0)
[2025-04-07] MEDS: VANCOMYCIN 2,000 MG/NS 500 ML 2,000 MG/500 ML BAG 250 MG IVPB (22:42)
[2025-04-08] VITALS (11 sets, daily range): BP systolic 100–115; BP diastolic 39–51; PULSE 84–91; RESP 18–20; TEMP 36.4–37.1; O2SAT 91–98
[2025-04-08 03:11] LABS: MRSA (PCR) DETECTED (NOT DETECTE)
[2025-04-08] MEDS: IPRATROPIUM BR 0.02% INH SOLN 0.5 MG/2.5 ML VIAL INHALATION (03:50)
[2025-04-08] MEDS: ALBUTEROL SULFATE NEB 2.5 MG/3 ML INH INHALATION (03:50)
[2025-04-08 05:27] LABS: Hematocrit 25.3 % (42.0-52.0); Hemoglobin 8.1 g/dL (14.0-18.0)
[2025-04-08 05:53] LABS: Estimated CRCL calculation 39 ml/min; Estimated Glomerular Filt Rate 30
--- NOTE | 2025-04-08 07:13 | P.PNIM_ITS ---
Progress Note: A&P Assessment and Plan (1) Pneumonia: Code(s): J18.9 - Pneumonia, unspecified organism Status: Acute Assessment and Plan: -the patient has had previous admissions for pneumonia. The patient did have a modified barium swallow performed on 03/02/2025 laryngeal penetration without aspiration with the impression. -the patient has had multiple admissions here and this could possibly be hospital-acquired pneumonia. He also lives in a long-term facility. The patient was started on Levaquin. I also added vancomycin. Patient's QTC is within normal limits. -sputum cultures pending. -blood cultures are pending. -the patient is on nocturnal supplemental oxygen at home. Possible sleep apnea? ? -we can repeat his swallow study. -chest x-ray was read as early bilateral pneumonia. -Mucinex -DuoNebs -Nasal MRSA swab positive -AM labs (2) COPD (chronic obstructive pulmonary disease): Code(s): J44.9 - Chronic obstructive pulmonary disease, unspecified Status: Acute Assessment and Plan: -no dyspnea, no wheezing -DuoNeb -Singulair -nocturnal oxygen (3) Seizure: Code(s): R56.9 - Unspecified convulsions Status: Acute Assessment and Plan: -it is unclear if the patient has ever had an EEG. According to the records neurology records on 03/10/2025 the patient was moving entire body and they would attempt later. I ordered 1 for this admission. -check Keppra level and continue Keppra until evaluated by Neurology possibly as outpatient. -EEG ordered -seizure precautions (4) AMS (altered mental status): Code(s): R41.82 - Altered mental status, unspecified Status: Acute Assessment and Plan: -multifactorial -this could be related to his infectious process. The patient could possibly have early dementia as he continues to repeat himself. -CT scan of the head was read per radiologist as no acute intracranial abnormality. (5) Chronic anemia: Code(s): D64.9 - Anemia, unspecified Status: Chronic Assessment and Plan: -the patient does have dark stool in his colostomy bag we will check stool for occult blood. -H&H every 6 hours -the patient had been on Eliquis without was placed on hold. The patient was followed by GI. It was noted that a semi elective EGD could be performed if necessary once his seizures were resolved. He is to follow up with GI outpatient. -his H&H is 9.6 and 29.4 which has improved from his last admission on 03/19/2025 it had been 7.9 and 25.1. -repeat hemoglobins 8.0, 8.1 and 7.8, this appears to be where he was on discharge a few weeks ago -CBC in am (6) Chronic indwelling Pereira catheter: Code(s): Z97.8 - Presence of other specified devices Status: Acute Assessment and Plan: -I did consult Urology as his urine always has bacteremia. No growth in his last urine culture. He does have a chronic indwelling Pereira catheter. -urology was consulted -f/u urine cultures (7) Stage 3 chronic kidney disease: Code(s): N18.30 - Chronic kidney disease, stage 3 unspecified Status: Chronic Assessment and Plan: -avoid nephrotoxic medications. -he has a history of CHF and I did not want to fluid overload him. -his BUN is 36 and creatinine is 2.21. His last BUN was 32 with a creatinine of 1.71 which appears to be his baseline. -AM labs (8) Hypothyroid: Qualifiers: Hypothyroidism type: unspecified Qualified Code(s): E03.9 - Hypothyroidism, unspecified Code(s): E03.9 - Hypothyroidism, unspecified Status: Acute Assessment and Plan: -continue with levothyroxine Subjective Date/time seen: 04/08/25 07:13 Interval history: Patient seen and examined for follow up visit. Patient lying in bed, in no acute distress. Patient denies acute pain. Patient continues on oxygen by [place]. Nephrology is consulted. EEG ordered. Patient continues on IV Levaquin for pneumonia. Review of Systems Review of Systems: All systems reviewed & are unremarkable except as noted in HPI and below Exam Const: General: comfortable and no acute distress HENMT: Mouth: Yes moist mucous membranes Eyes: Sclera: sclerae normal Neck: Neck: supple Resp: Effort & Inspection: normal respiratory effort Auscultation: diminished lung sounds Cardio: Rate: regular rate Rhythm: regular rhythm GI: GI Palp: Yes Soft to palpation Auscultation: normal bowel sounds Other: colostomy bag Urinary Catheter: Urinary Catheter: patent and draining Skin: General skin exam: normal color and no rashes or lesions noted Extrem: General: edema bilateral Psych: Mental Status: mental status grossly normal Objective Data Vital Signs Vital Signs: Vital Signs - 24 hr 04/07/25 15:06 04/07/25 16:00 04/07/25 17:11 Temperature 97.8 F Pulse Rate 89 85 104 H Respiratory Rate 15 18 18 Blood Pressure 133/70 173/68 H Pulse Oximetry 98 98 Oxygen Delivery Room Air 04/07/25 17:12 04/07/25 17:13 04/07/25 17:16 Temperature 97.6 F Pulse Rate 99 96 Respiratory Rate 19 18 Blood Pressure 121/49 L 121/49 L 109/93 H Pulse Oximetry 96 Oxygen Delivery 04/07/25 17:32 04/07/25 19:55 04/07/25 21:03 Temperature 97.9 F Pulse Rate 100 Respiratory Rate 18 Blood Pressure 126/90 118/52 L Pulse Oximetry 99 Oxygen Delivery Room Air 04/08/25 03:50 04/08/25 03:53 04/08/25 04:27 Temperature 98 F Pulse Rate 86 84 Respiratory Rate 18 20 Blood Pressure 100/50 L Pulse Oximetry 98 97 Oxygen Delivery Room Air Intake/Output Intake/Output: Intake & Output 04/05/25 04/06/25 04/07/25 04/08/25 23:59 23:59 23:59 23:59 Intake Total 50 Output Total 800 300 Balance -800 -250 Meds/Results Medications: Active Medications Generic Name Dose Route Start Last Admin Trade Name Freq PRN Reason Stop Dose Admin Acetaminophen 650 mg 04/07/25 18:28 Acetaminophen 325 Mg Tablet PO Q4H PRN Mild Pain (1-3) or Fever Acetaminophen 650 mg 04/07/25 18:28 Acetaminophen 650 Mg Suppository RECTAL Q6H PRN Mild Pain (1-3)/ Fever IF NPO Albuterol/Ipratropium 3 ml 04/08/25 08:00 Ipratropium 0.5 Mg/Albuterol Sulfate 2.5 Mg Ampul.Neb 3 Ml INHALATION Q6HRT VAIBHAV Levofloxacin/Dextrose 750 mg in 150 mls @ 100 mls/hr 04/09/25 19:00 Levaquin 750 Mg/D5w 150 Ml IVPB Q48H VAIBHAV Multi-Ingred Cream/Lotion/Oil/Oint 1 applic 04/08/25 09:00 Eucerin Cream 120 Gm Jar TOPICAL DAILY VAIBHAV Vancomycin HCl 1 each 04/07/25 21:11 Vancomycin For Acute Kidney Injury IVPB PRN PRN Vancomycin Protocol Radiology Results: ITS Impressions Head CT 04/07/25 17:27 Impression: 1.No acute intracranial abnormality. Chest X-Ray 04/07/25 17:42 Impression: Early bilateral pneumonia Labs Labs: Laboratory Results - last 24 hr 04/07/25 04/07/25 04/07/25 16:14 17:44 19:01 WBC 17.8 H RBC 3.39 L Hgb 9.6 L Hct 29.4 L MCV 86.7 MCH 28.3 MCHC 32.7 RDW 16.5 H Plt Count 290 D MPV 9.9 Immature Gran % (Auto) 0.4 Neut % (Auto) 79.4 H Lymph % (Auto) 8.9 L [place] % (Auto) 8.8 H Eos % (Auto) 2.2 Baso % (Auto) 0.3 Lymph # (Auto) 1.59 [place] # (Auto) 1.6 H Eos # (Auto) 0.4 H Baso # (Auto) 0.1 Abs Immat Gran (auto) 0.07 H Absolute Neuts (auto) 14.2 H Absolute Nucleated RBC 0.000 Nucleated RBC % 0.0 PT 19.6 H INR 1.7 APTT 40.9 H Puncture Site Right radial ABG pH 7.415 ABG pCO2 38.7 ABG pO2 72.9 L ABG PO2/FiO2 Ratio 3.47 ABG HCO3 24.3 ABG O2 Saturation 94.9 L ABG O2 Content 14.0 L ABG Base Excess -0.2 A-a Gradient 30.5 Oxyhemoglobin 93.4 Total Hemoglobin 10.6 L O2 Delivery Device Room air O2 Liters/Min 0.0 FiO2 21 Sodium 131 L Potassium 4.5 Chloride 96 L Carbon Dioxide 24 Anion Gap 11 BUN 36 H Creatinine 2.21 H Estim Creat Clear Calc 38 Estimated GFR 29 L Glucose 102 Calcium 8.3 L Total Bilirubin 0.6 AST 15 L ALT 16 Alkaline Phosphatase 233 H Total Creatine Kinase < 20 L Total Protein 7.2 Albumin 3.3 L TSH 2.970 Urine Color Yellow Urine Appearance Turbid H Urine pH 6.5 Ur Specific [place] 1.011 Urine Protein 2+ H Urine Glucose (UA) Negative Urine Ketones Negative Ur Blood (Man) 2+ H Urine Nitrate Negative Urine Bilirubin Negative Urine Urobilinogen 0.2 Leukocyte Esterase Rfl 3+ H Urine RBC 0-2 Urine WBC >100 H Ur Squamous Epith Cells Occasional Urine Bacteria 4+ H Urine Casts 0-2 Nasal MRSA (PCR) Salicylates < 1.0 L Urine Opiates Screen Negative Urine Methadone Screen Negative Ur Barbiturates Screen Negative Ur Phencyclidine Scrn Negative Ur Amphetamine Screen Negative U Benzodiazepines Scrn Negative Urine Cocaine Screen Negative U Cannabinoids Screen Negative Ethyl Alcohol < 10 04/07/25 04/08/25 04/08/25 22:20 00:01 04:58 WBC RBC Hgb 8.0 L 8.1 L Hct 24.4 L 25.3 L MCV MCH MCHC RDW Plt Count MPV Immature Gran % (Auto) Neut % (Auto) Lymph % (Auto) [place] % (Auto) Eos % (Auto) Baso % (Auto) Lymph # (Auto) [place] # (Auto) Eos # (Auto) Baso # (Auto) Abs Immat Gran (auto) Absolute Neuts (auto) Absolute Nucleated RBC Nucleated RBC % PT INR APTT Puncture Site ABG pH ABG pCO2 ABG pO2 ABG PO2/FiO2 Ratio ABG HCO3 ABG O2 Saturation ABG O2 Content ABG Base Excess A-a Gradient Oxyhemoglobin Total Hemoglobin O2 Delivery Device O2 Liters/Min FiO2 Sodium Potassium Chloride Carbon Dioxide Anion Gap BUN Creatinine 2.13 H Estim Creat Clear Calc 39 Estimated GFR 30 L Glucose Calcium Total Bilirubin AST ALT Alkaline Phosphatase Total Creatine Kinase Total Protein Albumin TSH Urine Color Urine Appearance Urine pH Ur Specific [place] Urine Protein Urine Glucose (UA) Urine Ketones Ur Blood (Man) Urine Nitrate Urine Bilirubin Urine Urobilinogen Leukocyte Esterase Rfl Urine RBC Urine WBC Ur Squamous Epith Cells Urine Bacteria Urine Casts Nasal MRSA (PCR) Detected A* Salicylates Urine Opiates Screen Urine Methadone Screen Ur Barbiturates Screen Ur Phencyclidine Scrn Ur Amphetamine Screen U Benzodiazepines Scrn Urine Cocaine Screen U Cannabinoids Screen Ethyl Alcohol
[2025-04-08] MEDS: IPRATROPIUM 0.5 MG/ALBUTEROL SULFATE 2.5 MG AMPUL.NEB 3 ML INHALATION ×3 (08:36→21:03)
[2025-04-08] MEDS: EUCERIN CREAM 120 GM JAR 1 APPLIC TOPICAL (09:02)
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
[2025-04-08 10:02] LABS: Hematocrit 24.8 % (42.0-52.0); Hemoglobin 7.8 g/dL (14.0-18.0)
[2025-04-08 16:33] LABS: Hematocrit 24.4 % (42.0-52.0); Hemoglobin 7.9 g/dL (14.0-18.0)
[2025-04-08] MEDS: ASCORBIC ACID 500 MG TABLET PO (17:38)
[2025-04-08] MEDS: CALCIUM CARBONATE (TUMS) 500 MG (200 MG ELEMENTAL) PO ×2 (17:38→21:51)
[2025-04-08] MEDS: MICONAZOLE NITRATE 2% CREAM 30 GM TUBE 1 APPLIC TOPICAL (17:39)
[2025-04-08] MEDS: FERROUS SULFATE 325 MG TABLET BY MOUTH (19:06)
[2025-04-08] MEDS: MONTELUKAST SODIUM 10 MG TABLET PO (21:52)
[2025-04-08] MEDS: guaiFENesin 12 HR 600 MG TABCR PO (21:52)
[2025-04-08] MEDS: HYDROCORTISONE 1% 30 GM CREAM 1 APPLIC TOPICAL (21:54)
[2025-04-09] VITALS (12 sets, daily range): BP systolic 105–127; BP diastolic 31–50; PULSE 61–94; RESP 17–20; TEMP 36.6–36.9; O2SAT 95–100
[2025-04-09] MEDS: IPRATROPIUM 0.5 MG/ALBUTEROL SULFATE 2.5 MG AMPUL.NEB 3 ML INHALATION ×4 (02:53→20:33)
[2025-04-09] MEDS: VANCOMYCIN 2,000 MG/NS 500 ML 2,000 MG/500 ML BAG 250 MG IVPB (03:30)
[2025-04-09 05:31] LABS: Hematocrit 21.7 % (42.0-52.0); Hemoglobin 7.0 g/dL (14.0-18.0); Immature Granulocyte Percent A 0.7 % (0-0.5); Lymphocytes Absolute Auto 1.34 K/mm3 (0.9-3.2); Mean Corpuscular HGB Conc 32.3 g/dl (32-36); Mean Corpuscular Hemoglobin 28.3 pg (26-34); Mean Corpuscular Volume 87.9 fl (80-100); Nucleated Red Blood Cells Absolute Auto 0.000 K/mm3 (0.0-0.012); Nucleated Red Blood Cells Perc 0.0 % (0.0-0.2); Platelet Count Result 206 k/mm3 (150-375); Red Blood Count 2.47 M/mm3 (4.6-6.20); White Blood Count 9.1 K/mm3 (4.5-10.0)
[2025-04-09 05:52] LABS: Alanine Aminotransferase 11 U/L (6-50); Albumin Level 2.9 g/dL (3.5-5.1); Alkaline Phosphatase 133 U/L (38-126); Anion Gap 9 mmol/L (4-12); Aspartate Amino Transferase 13 U/L (17-59); Bilirubin,Total 0.3 mg/dL (0.2-1.3); Blood Urea Nitrogen 38 mg/dL (9-20); Calcium 7.6 mg/dL (8.4-10.2); Carbon Dioxide 22 mmol/L (22-30); Chloride 101 mmol/L (98-107); Estimated CRCL calculation 41 ml/min; Estimated Glomerular Filt Rate 33; Glucose 99 mg/dL (65-110); Potassium 4.0 mmol/L (3.4-5.0); Sodium 132 mmol/L (137-145); Total Protein 6.2 g/dL (6.3-8.2)
[2025-04-09] MEDS: LEVOTHYROXINE SODIUM 25 MCG TABLET PO (06:45)
--- NOTE | 2025-04-09 07:11 | PM.IMPN ---
Progress Note: A&P Assessment and Plan (1) Pneumonia: Code(s): J18.9 - Pneumonia, unspecified organism Status: Acute Assessment and Plan: -the patient has had previous admissions for pneumonia. The patient did have a modified barium swallow performed on 03/02/2025 laryngeal penetration without aspiration was the impression. -the patient has had multiple admissions here and this could possibly be hospital-acquired pneumonia. He also lives in a long-term facility. The patient was started on Levaquin. I also added vancomycin. Patient's QTC is within normal limits. Pharmacy to renally adjust. -sputum cultures pending. -blood cultures are pending. -the patient is on nocturnal supplemental oxygen at home. Possible sleep apnea? ? -we can repeat his swallow study. -chest x-ray was read as early bilateral pneumonia. -Mucinex -DuoNebs -repeat CXR tomorrow AM -AM labs (2) COPD (chronic obstructive pulmonary disease): Code(s): J44.9 - Chronic obstructive pulmonary disease, unspecified Status: Acute Assessment and Plan: -DuoNeb -Singulair -nocturnal oxygen -no wheezing noted (3) Seizure: Code(s): R56.9 - Unspecified convulsions Status: Acute Assessment and Plan: -it is unclear if the patient has ever had an EEG. According to the records neurology records on 03/10/2025 the patient was moving entire body and they would attempt later. I ordered 1 for this admission. -check Keppra level and continue Keppra until evaluated by Neurology possibly as outpatient. -seizure precautions (4) AMS (altered mental status): Code(s): R41.82 - Altered mental status, unspecified Status: Acute Assessment and Plan: -multifactorial -this could be related to his infectious process. The patient could possibly have early dementia as he continues to repeat himself. -CT scan of the head was read per radiologist as no acute intracranial abnormality. (5) Chronic anemia: Code(s): D64.9 - Anemia, unspecified Status: Chronic Assessment and Plan: -the patient does have dark stool in his colostomy bag we will check stool for occult blood. -H&H every 6 hours -the patient had been on Eliquis which was placed on hold. The patient was followed by GI. It was noted that a semi elective EGD could be performed if necessary once his seizures were resolved. He is to follow up with GI outpatient. -his H&H is 9.6 and 29.4 which has improved from his last admission on 03/19/2025 it had been 7.9 and 25.1. -Hgb 7.0 today, repeat in AM (6) Chronic indwelling Pereira catheter: Code(s): Z97.8 - Presence of other specified devices Status: Acute Assessment and Plan: -I did consult Urology as his urine always has bacteremia. No growth in his last urine culture. He does have a chronic indwelling Pereira catheter. (7) Stage 3 chronic kidney disease: Code(s): N18.30 - Chronic kidney disease, stage 3 unspecified Status: Chronic Assessment and Plan: -avoid nephrotoxic medications. -he has a history of CHF and I did not want to fluid overload him. -his BUN is 36 and creatinine is 2.21. His last BUN was 32 with a creatinine of 1.71 which appears to be his baseline. (8) Hypothyroid: Qualifiers: Hypothyroidism type: unspecified Qualified Code(s): E03.9 - Hypothyroidism, unspecified Code(s): E03.9 - Hypothyroidism, unspecified Status: Acute Assessment and Plan: -continue with levothyroxine Subjective Date/time seen: 04/09/25 07:11 Interval history: Patient lying in bed, in no acute distress. Patient denies acute pain. Patient denies acute complaints. Patient reports good appetite and no nausea or vomiting. Patient continues on IV antibiotics. Urology following patient. Urine and blood cultures pending. Plan for repeat CXR tomorrow AM. Monitor hemoglobin closely. Review of Systems Review of Systems: All systems reviewed & are unremarkable except as noted in HPI and below Exam Const: General: comfortable, no acute distress, confusion and obese Orientation/consciousness: oriented to person, oriented to place, oriented to time, patient oriented x3 and confusion HENMT: Mouth: Yes moist mucous membranes Other: edentulous Eyes: Sclera: sclerae normal Pupils: Equal, round and reactive pupils present Neck: Neck: normal visual inspection and supple Chest: Chest palpation & inspection: normal inspection of the chest Resp: Effort & Inspection: normal respiratory effort Auscultation: diminished lung sounds Cardio: Rate: regular rate Rhythm: regular rhythm GI: Inspection: normal to inspection Auscultation: normal bowel sounds Other: colostomy bag Urinary Catheter: Urinary Catheter: patent and draining Skin: General skin exam: normal color and no rashes or lesions noted Neuro: General: oriented to person, oriented to place, oriented to time, patient oriented x3 and confusion Extrem: General: normal to inspection and edema bilateral Psych: Mental Status: mental status grossly normal Objective Data Vital Signs Vital Signs: Vital Signs - 24 hr 04/08/25 08:36 04/08/25 09:00 04/08/25 14:19 Temperature Pulse Rate 88 86 Respiratory Rate 18 20 Blood Pressure Pulse Oximetry Oxygen Delivery Room Air 04/08/25 14:30 04/08/25 14:56 04/08/25 20:00 Temperature 97.6 F Pulse Rate 85 91 87 Respiratory Rate 20 20 18 Blood Pressure 115/39 L Pulse Oximetry 91 96 Oxygen Delivery Room Air 04/08/25 20:08 04/08/25 21:03 04/08/25 21:11 Temperature 98.7 F Pulse Rate 86 84 87 Respiratory Rate 18 18 18 Blood Pressure 115/51 L Pulse Oximetry 96 Oxygen Delivery 04/09/25 02:54 04/09/25 03:05 04/09/25 06:00 Temperature 97.9 F Pulse Rate 76 80 94 Respiratory Rate 20 20 17 Blood Pressure 105/31 L Pulse Oximetry 100 Oxygen Delivery Intake/Output Intake/Output: Intake & Output 04/06/25 04/07/25 04/08/25 04/09/25 23:59 23:59 23:59 23:59 Intake Total 2780 550 Output Total 800 1350 950 Balance -800 1430 -400 Meds/Results Medications: Active Medications Generic Name Dose Route Start Last Admin Trade Name Freq PRN Reason Stop Dose Admin Acetaminophen 650 mg 04/07/25 18:28 Acetaminophen 325 Mg Tablet PO Q4H PRN Mild Pain (1-3) or Fever Acetaminophen 650 mg 04/07/25 18:28 Acetaminophen 650 Mg Suppository RECTAL Q6H PRN Mild Pain (1-3)/ Fever IF NPO Albuterol/Ipratropium 3 ml 04/08/25 08:00 04/09/25 02:53 Ipratropium 0.5 Mg/Albuterol Sulfate 2.5 Mg Ampul.Neb 3 Ml INHALATION 3 ml Q6HRT VAIBHAV Administration Ascorbic Acid 500 mg 04/08/25 17:00 04/08/25 17:38 Ascorbic Acid 500 Mg Tablet PO 500 mg BID VAIBHAV Administration Calcium Carbonate 200 mg 04/08/25 17:00 04/08/25 21:51 Calcium Carbonate (Tums) 500 Mg (200 Mg Elemental) PO 200 mg 1200,1700,2100 VAIBHAV Administration Cyanocobalamin 1,000 mcg 04/09/25 09:00 Cyanocobalamin 1,000 Mcg Tablet PO DAILY [facility] Diltiazem HCl 30 mg 04/08/25 17:00 04/08/25 17:41 Diltiazem Hcl 30 Mg Tablet PO 30 mg TID [facility] Administration Docusate Sodium 100 mg 04/08/25 13:18 Docusate Sodium 100 Mg Capsule PO BID PRN Constipation Ferrous Sulfate 325 mg 04/08/25 17:00 04/08/25 19:06 Ferrous Sulfate 325 Mg Tablet BY MOUTH 325 mg 1200,1700 [facility] Administration Fluticasone Propionate 2 spray 04/09/25 09:00 Fluticasone Propionate 0.05% Na Spr 16 Gm Btl (*Bkc) NASAL DAILY [facility] Gabapentin 200 mg 04/09/25 09:00 Gabapentin 100 Mg Capsule PO DAILY [facility] Guaifenesin 600 mg 04/08/25 21:00 04/08/25 21:52 Guaifenesin 12 Hr 600 Mg Tabcr PO 600 mg QHS [facility] Administration Guaifenesin/Dextromethorphan 1 tab 04/08/25 13:18 Guaifenesin 600 Mg/Dextromethorphan 30 Mg Sr Tab 12 Hr PO Q12H PRN Cough Hydrocortisone 1 applic 04/08/25 21:00 04/08/25 21:54 Hydrocortisone 1% 30 Gm Cream TOPICAL 1 applic Q12HR [facility] Administration Levofloxacin/Dextrose 750 mg in 150 mls @ 100 mls/hr 04/09/25 19:00 Levaquin 750 Mg/D5w 150 Ml IVPB Q48H [facility] Levetiracetam 1,500 mg 04/08/25 21:00 04/08/25 21:52 Levetiracetam 500 Mg Tablet PO 1,500 mg Q12HR [facility] Administration Levothyroxine Sodium 25 mcg 04/09/25 06:30 Levothyroxine Sodium 25 Mcg Tablet PO DAILY@0630 [facility] Loratadine 10 mg 04/08/25 13:28 Loratadine 10 Mg Tablet PO DAILY PRN Allergy Symptoms Miconazole Nitrate 1 applic 04/08/25 17:00 04/08/25 17:39 Miconazole Nitrate 2% Cream 30 Gm Tube TOPICAL 1 applic BID VAIBHAV Administration Miscellaneous Information 0 each 04/08/25 00:01 04/08/25 17:40 Miconazole (Sub For Nystatin) Add Site Of Use XX 05/08/25 00:00 Not Given CLARIFY VAIBHAV Montelukast Sodium 10 mg 04/08/25 21:00 04/08/25 21:52 Montelukast Sodium 10 Mg Tablet PO 10 mg QHS VAIBHAV Administration Multi-Ingred Cream/Lotion/Oil/Oint 1 applic 04/08/25 09:00 04/08/25 09:02 Eucerin Cream 120 Gm Jar TOPICAL 1 applic DAILY VAIBHAV Administration Ondansetron HCl 4 mg 04/08/25 13:18 Ondansetron Hcl Odt 4 Mg Tablet PO Q4H PRN Nausea And Vomiting Pantoprazole Sodium 40 mg 04/09/25 09:00 Pantoprazole 40 Mg Tablet PO QAM VAIBHAV Polyethylene Glycol 17 gm 04/08/25 18:00 04/08/25 17:38 Polyethylene Glycol 3350 17 Gm Powd.Pack PO 17 gm QPM VAIBHAV Administration Simethicone 80 mg 04/08/25 13:18 Simethicone 80 Mg Tab.Chew PO Q6H PRN Abdominal Discomfort Sodium Chloride 1 applic 04/08/25 17:00 04/08/25 21:57 Sodium Chloride 5% Ophth Oint 3.5 Gm Tube EACH EYE Not Given QID [facility] Vancomycin HCl 1 each 04/07/25 21:11 Vancomycin For Acute Kidney Injury IVPB PRN PRN Vancomycin Protocol Vitamin D 25 mcg 04/09/25 09:00 Cholecalciferol (Vitamin D3) 25 Mcg (1,000 Units) Tablet PO DAILY [facility] Radiology Results: ITS Impressions Head CT 04/07/25 17:27 Impression: 1.No acute intracranial abnormality. Chest X-Ray 04/07/25 17:42 Impression: Early bilateral pneumonia Labs Labs: Laboratory Results - last 24 hr 04/08/25 04/08/25 04/08/25 10:00 16:28 20:46 WBC RBC Hgb 7.8 L 7.9 L Hct 24.8 L 24.4 L MCV MCH MCHC RDW Plt Count MPV Immature Gran % (Auto) Neut % (Auto) Lymph % (Auto) [place] % (Auto) Eos % (Auto) Baso % (Auto) Lymph # (Auto) [place] # (Auto) Eos # (Auto) Baso # (Auto) Abs Immat Gran (auto) Absolute Neuts (auto) Absolute Nucleated RBC Nucleated RBC % Sodium Potassium Chloride Carbon Dioxide Anion Gap BUN Creatinine Estim Creat Clear Calc Estimated GFR Glucose Calcium Total Bilirubin AST ALT Alkaline Phosphatase Total Protein Albumin Random Vancomycin 12.0 04/09/25 05:00 WBC 9.1 RBC 2.47 L Hgb 7.0 L Hct 21.7 L MCV 87.9 MCH 28.3 MCHC 32.3 RDW 15.5 H Plt Count 206 MPV 9.6 Immature Gran % (Auto) 0.7 H Neut % (Auto) 72.9 Lymph % (Auto) 14.7 L [place] % (Auto) 7.6 Eos % (Auto) 3.8 Baso % (Auto) 0.3 Lymph # (Auto) 1.34 [place] # (Auto) 0.7 H Eos # (Auto) 0.4 H Baso # (Auto) 0.0 Abs Immat Gran (auto) 0.06 H Absolute Neuts (auto) 6.6 Absolute Nucleated RBC 0.000 Nucleated RBC % 0.0 Sodium 132 L Potassium 4.0 Chloride 101 Carbon Dioxide 22 Anion Gap 9 BUN 38 H Creatinine 2.00 H Estim Creat Clear Calc 41 Estimated GFR 33 L Glucose 99 Calcium 7.6 L Total Bilirubin 0.3 AST 13 L ALT 11 Alkaline Phosphatase 133 H Total Protein 6.2 L Albumin 2.9 L Random Vancomycin Quality VTE Prophylaxis VTE prophylaxis: mechanical ordered
[2025-04-09] MEDS: ASCORBIC ACID 500 MG TABLET PO ×2 (09:24→18:16)
[2025-04-09] MEDS: GABAPENTIN 100 MG CAPSULE 200 MG PO (09:24)
[2025-04-09] MEDS: MICONAZOLE NITRATE 2% CREAM 30 GM TUBE 1 APPLIC TOPICAL ×2 (09:25→18:17)
[2025-04-09] MEDS: FLUTICASONE PROPIONATE 0.05% NA SPR 16 GM BTL (*BKC) 2 SPRAY NASAL (09:25)
[2025-04-09] MEDS: PANTOPRAZOLE 40 MG TABLET PO (09:25)
[2025-04-09] MEDS: CHOLECALCIFEROL (VITAMIN D3) 25 MCG (1,000 UNITS) TABLET PO (09:25)
[2025-04-09] MEDS: EUCERIN CREAM 120 GM JAR 1 APPLIC TOPICAL (09:25)
[2025-04-09] MEDS: CYANOCOBALAMIN 1,000 MCG TABLET 1000 MCG PO (09:25)
[2025-04-09] MEDS: HYDROCORTISONE 1% 30 GM CREAM 1 APPLIC TOPICAL ×2 (09:25→22:10)
[2025-04-09] MEDS: CALCIUM CARBONATE (TUMS) 500 MG (200 MG ELEMENTAL) PO ×3 (12:19→22:57)
[2025-04-09] MEDS: FERROUS SULFATE 325 MG TABLET BY MOUTH (15:42)
[2025-04-09] MEDS: levoFLOXacin 750 MG/D5W 150 ML 750 MG/150 ML BAG 100 MG IVPB (18:17)
[2025-04-09] MEDS: MONTELUKAST SODIUM 10 MG TABLET PO (21:56)
[2025-04-09] MEDS: guaiFENesin 12 HR 600 MG TABCR PO (21:56)
[2025-04-09] MEDS: MUPIROCIN 2% OINT 22 GM TUBE 1 APPLIC EACH NARE (21:58)
[2025-04-10 03:01] LABS: Hematocrit 23.4 % (42.0-52.0); Hemoglobin 7.5 g/dL (14.0-18.0); Immature Granulocyte Percent A 0.6 % (0-0.5); Lymphocytes Absolute Auto 1.28 K/mm3 (0.9-3.2); Mean Corpuscular HGB Conc 32.1 g/dl (32-36); Mean Corpuscular Hemoglobin 28.2 pg (26-34); Mean Corpuscular Volume 88.0 fl (80-100); Nucleated Red Blood Cells Absolute Auto 0.000 K/mm3 (0.0-0.012); Nucleated Red Blood Cells Perc 0.0 % (0.0-0.2); Platelet Count Result 214 k/mm3 (150-375); Red Blood Count 2.66 M/mm3 (4.6-6.20); White Blood Count 9.6 K/mm3 (4.5-10.0)
[2025-04-10 03:22] LABS: Alanine Aminotransferase 11 U/L (6-50); Albumin Level 3.0 g/dL (3.5-5.1); Alkaline Phosphatase 130 U/L (38-126); Anion Gap 8 mmol/L (4-12); Aspartate Amino Transferase 13 U/L (17-59); Bilirubin,Total 0.2 mg/dL (0.2-1.3); Blood Urea Nitrogen 37 mg/dL (9-20); Calcium 7.7 mg/dL (8.4-10.2); Carbon Dioxide 22 mmol/L (22-30); Chloride 102 mmol/L (98-107); Estimated CRCL calculation 45 ml/min; Estimated Glomerular Filt Rate 36; Glucose 100 mg/dL (65-110); Potassium 4.8 mmol/L (3.4-5.0); Sodium 132 mmol/L (137-145); Total Protein 6.5 g/dL (6.3-8.2)
[2025-04-10 05:44] VITALS: BP 128/50; PULSE 85; RESP 16; TEMP 36.6; O2SAT 95
[2025-04-10] MEDS: VANCOMYCIN 1,750 MG/NS 500 ML 1,750 MG/500 ML BAG 250 MG IVPB (06:14)
[2025-04-10] MEDS: LEVOTHYROXINE SODIUM 25 MCG TABLET PO (06:14)
--- NOTE | 2025-04-10 08:53 | PCRCNOTE ---
Treatment not given, patient being taken off floor for testing/procedure.
[2025-04-10] MEDS: CYANOCOBALAMIN 1,000 MCG TABLET 1000 MCG PO (09:53)
[2025-04-10] MEDS: ASCORBIC ACID 500 MG TABLET PO ×2 (09:53→17:22)
[2025-04-10] MEDS: GABAPENTIN 100 MG CAPSULE 200 MG PO (09:53)
[2025-04-10] MEDS: CHOLECALCIFEROL (VITAMIN D3) 25 MCG (1,000 UNITS) TABLET PO (09:53)
[2025-04-10] MEDS: PANTOPRAZOLE 40 MG TABLET PO (09:53)
[2025-04-10 09:54] VITALS: RESP 16; O2SAT 95
[2025-04-10] MEDS: HYDROCORTISONE 1% 30 GM CREAM 1 APPLIC TOPICAL (09:54)
[2025-04-10] MEDS: MICONAZOLE NITRATE 2% CREAM 30 GM TUBE 1 APPLIC TOPICAL (09:54)
[2025-04-10] MEDS: EUCERIN CREAM 120 GM JAR 1 APPLIC TOPICAL (09:54)
[2025-04-10] MEDS: FLUTICASONE PROPIONATE 0.05% NA SPR 16 GM BTL (*BKC) 2 SPRAY NASAL (09:55)
[2025-04-10] MEDS: MUPIROCIN 2% OINT 22 GM TUBE 1 APPLIC EACH NARE (09:55)
--- NOTE | 2025-04-10 11:27 | PCSTNOTE ---
Please refer to the Modified Barium Swallow Evaluation in the EMR. Pt is a 74 year old male who presents from his [place] [facility] with AMS and bilateral PNA. ST orders were completed to rule out aspiration as a cause for his PNA. Pt was seated upright in fluoro chair and was pleasant. Pt self-fed a majority of trials and followed all commands. Pt noted to be edentulous; however, reports no concern with hard solids and demonstrated adequate mastication. PO trials included thin liquid barium via tsp, cup, and straw, barium pudding, and a hard solid coated in barium pudding. Pt's oral phase of swallowing was remarkable for reduced lingual to palatal seal resulting in premature loss of thin liquids to the vallecula. This did not impact the safety of the swallow. Pt's pharyngeal phase of swallowing was notable for reduced laryngeal closure resulting in flash penetration with large volume drinks of thin liquids via cup and straw. Penetration was consistently cleared with the force of the swallow. However, penetrated material was noted to remain in the laryngeal vestibule x1 with large straw drink. This penetrated material did not migrate further into the airway and was cleared with subsequent swallows. Small drinks eliminated penetrated material remaining in the airway and penetration was only noted to be flash. Across volumes and consistencies no aspiration was noted. No penetration or aspiration noted across puree and hard solid trials. No notable residue visualized. Recommendations: 1. Regular Diet (Level 7) and Thin liquids (Level 0) 2. Upright, SMALL SIPS; Frequent supervision to ensure use of strategies (small sips) 3. No further ST services warranted at this time. Provider (Latia) notified of these results and recommendations.
[2025-04-10] MEDS: FERROUS SULFATE 325 MG TABLET BY MOUTH ×2 (12:13→17:22)
[2025-04-10] MEDS: CALCIUM CARBONATE (TUMS) 500 MG (200 MG ELEMENTAL) PO ×2 (12:13→17:22)
[2025-04-10] MEDS: IPRATROPIUM 0.5 MG/ALBUTEROL SULFATE 2.5 MG AMPUL.NEB 3 ML INHALATION (12:58)
[2025-04-10 13:01] VITALS: PULSE 80; RESP 20; O2SAT 97
[2025-04-10 13:07] VITALS: PULSE 84; RESP 20
--- NOTE | 2025-04-10 13:48 | P.DS_ITS ---
DS: Admitting Diagnosis Discharge Date 04/10/2025 Admitting Diagnosis pneumonia DS: Discharge Diagnosis Discharge Diagnosis (1) Pneumonia: Code(s): J18.9 - Pneumonia, unspecified organism Status: Acute Assessment and Plan: -the patient has had previous admissions for pneumonia. The patient did have a modified barium swallow performed on 03/02/2025 laryngeal penetration without aspiration was the impression. -the patient has had multiple admissions here and this could possibly be h ospital-acquired pneumonia. He also lives in a long-term facility. The patient was started on Levaquin. I also added vancomycin. Patient's QTC is within normal limits. Pharmacy to renally adjust. -sputum cultures pending. -blood cultures are pending. -the patient is on nocturnal supplemental oxygen at home. Possible sleep apnea? ? -we can repeat his swallow study, completed without aspiration -chest x-ray was read as early bilateral pneumonia. -Mucinex -DuoNebs -repeat CXR without acute findings (2) COPD (chronic obstructive pulmonary disease): Code(s): J44.9 - Chronic obstructive pulmonary disease, unspecified Status: Acute Assessment and Plan: -DuoNeb -Singulair -nocturnal oxygen -no wheezing noted (3) Seizure: Code(s): R56.9 - Unspecified convulsions Status: Acute Assessment and Plan: -it is unclear if the patient has ever had an EEG. According to the records neurology records on 03/10/2025 the patient was moving entire body and they would attempt later. I ordered 1 for this admission. -check Keppra level and continue Keppra until evaluated by Neurology possibly as outpatient. -seizure precautions (4) AMS (altered mental status): Code(s): R41.82 - Altered mental status, unspecified Status: Acute Assessment and Plan: -multifactorial -this could be related to his infectious process. The patient could possibly have early dementia as he continues to repeat himself. -CT scan of the head was read per radiologist as no acute intracranial abnormality. (5) Chronic anemia: Code(s): D64.9 - Anemia, unspecified Status: Chronic Assessment and Plan: -the patient does have dark stool in his colostomy bag we will check stool for occult blood. -H&H every 6 hours -the patient had been on Eliquis which was placed on hold. The patient was followed by GI. It was noted that a semi elective EGD could be performed if necessary once his seizures were resolved. He is to follow up with GI outpatient. -his H&H is 9.6 and 29.4 which has improved from his last admission on 03/19/2025 it had been 7.9 and 25.1. (6) Chronic indwelling Pereira catheter: Code(s): Z97.8 - Presence of other specified devices Status: Acute Assessment and Plan: -I did consult Urology as his urine always has bacteremia. No growth in his las t urine culture. He does have a chronic indwelling Pereira catheter. (7) Stage 3 chronic kidney disease: Code(s): N18.30 - Chronic kidney disease, stage 3 unspecified Status: Chronic Assessment and Plan: -avoid nephrotoxic medications. -he has a history of CHF and I did not want to fluid overload him. -his BUN is 36 and creatinine is 2.21. His last BUN was 32 with a creatinine of 1.71 which appears to be his baseline. (8) Hypothyroid: Qualifiers: Hypothyroidism type: unspecified Qualified Code(s): E03.9 - Hypothyroid ism, unspecified Code(s): E03.9 - Hypothyroidism, unspecified Status: Acute Assessment and Plan: -continue with levothyroxine DS: Summary Hospital Course Reason for hospitalization: confusion, lethargy, fatigue Hospital Course: Patient is a 74 year old with PMH of seizures, anemia of CKD, paroxysmal a-fib, CHF, HTN, GERD, CKD, PAD, hypothyroidism and peripheral neuropathy. Patient presented to the ER with complaints of confusion, lethargy and fatigue. WBC count 17.8. Chest x-ray showed scattered bilateral infiltrates. The patient was given IV Levaquin and IV vancomycin and IV fluids. Patient has had other admissions recently for pneumonia. Modified barium swallow was ordered and was completed prior to discharge and did not show aspiration. Nasal MRSA swab was positive. Patient was improving. Patient was discharged with Bactroban, doxycycline and Levaquin. Patient was discharged back to the intermediate. Time Spent with Patient Time attestation: Total time spent providing and/or coordinating discharge services: Exam Const: General: comfortable, no acute distress, confusion and obese Nutritional Appearance: obese Orientation/consciousness: oriented to person, oriented to place, oriented to time, patient oriented x3 and confusion HENMT: Mouth: Yes moist mucous membranes Other: edentulous Eyes: Sclera: sclerae normal Pupils: Equal, round and reactive pupils present Neck: Neck: normal visual inspection and supple Chest: Chest palpation & inspection: normal inspection of the chest Resp: Effort & Inspection: normal respiratory effort Auscultation: diminished lung sounds Cardio: Rate: regular rate Rhythm: regular rhythm GI: Inspection: normal to inspection Auscultation: normal bowel sounds Other: colostomy bag Urinary Catheter: Urinary Catheter: patent and draining Skin: General skin exam: normal color and no rashes or lesions noted Neuro: General: oriented to person, oriented to place, oriented to time, patient oriented x3 and confusion Cranial nerves: Yes Equal, round and reactive pupils present Extrem: General: normal to inspection and edema bilateral Psych: Mental Status: mental status grossly normal DS: Data Data Completed and Pending Labs on day of discharge: Labs from last 24 hours 04/10/25 02:54 WBC 9.6 RBC 2.66 L Hgb 7.5 L Hct 23.4 L MCV 88.0 MCH 28.2 MCHC 32.1 RDW 15.5 H Plt Count 214 MPV 9.3 Immature Gran % (Auto) 0.6 H Neut % (Auto) 68.9 Lymph % (Auto) 13.3 L [place] % (Auto) 9.1 H Eos % (Auto) 7.8 H Baso % (Auto) 0.3 Lymph # (Auto) 1.28 [place] # (Auto) 0.9 H Eos # (Auto) 0.8 H Baso # (Auto) 0.0 Abs Immat Gran (auto) 0.06 H Absolute Neuts (auto) 6.6 Absolute Nucleated RBC 0.000 Nucleated RBC % 0.0 Sodium 132 L Potassium 4.8 Chloride 102 Carbon Dioxide 22 Anion Gap 8 BUN 37 H Creatinine 1.83 H Estim Creat Clear Calc 45 Estimated GFR 36 L Glucose 100 Calcium 7.7 L Total Bilirubin 0.2 AST 13 L ALT 11 Alkaline Phosphatase 130 H Total Protein 6.5 Albumin 3.0 L Random Vancomycin 18.7 Discharge Plan Discharge Attending physician on discharge: Keaton Markham Consulting providers: Suleiman Iyer; Elsy Mcpherson; Latia Loya; Reji Coker; Tyrese Barrera; Jose Diane Discharging Clinician: Latia Loya Patient Disposition: NH Intermediate/Asst Living Activity: as tolerated Diet: heart healthy and low sodium Discharge Instructions: Speech therapy recommends patient to take sips of liquids, no big drinks. Patient Instructions: Antibiotic Form, Heart Failure (DC), Pain Management (DC) Patient Language: [place] Stand Alone Forms: General Discharge Information, Senior Care Discharge Follow-up/Referrals: Robert Giron PA [Physician Gun Sealing Machine Operator, Urology] - 2 Weeks Referral Note: ?suspect neurogenic bladder Problems: Chronic indwelling Pereira catheter; Seizure Discharge Medications: New mupirocin 2 % Ointment 1 applic EACH NARE Q12HR 7 Days Qty: 15 0RF Minerin Creme Cream 1 applic topical DAILY Qty: 60 0RF levofloxacin 750 mg tablet 750 mg PO DAILY Qty: 3 0RF doxycycline hyclate 100 mg capsule 100 mg PO BID Qty: 10 0RF Continued Zyrtec 10 mg capsule 10 mg PO DAILY PRN (Reason: Allergy Symptoms) gabapentin 100 mg capsule 200 mg PO DAILY omeprazole 20 mg capsule,delayed release(DR/EC) 20 mg PO DAILY simethicone [Gas Relief (simethicone)] 80 mg tablet,chewable 80 mg PO Q6H PRN (Reason: Abdominal Discomfort) Rx Instructions: after meals montelukast [Singulair] 10 mg tablet 10 mg PO QHS baclofen 10 mg tablet 15 mg PO QID Rx Instructions: 0800,1200,1600,2000 acetaminophen 500 mg capsule 1,000 mg PO Q6H PRN (Reason: pain) Patient Comments: ... guaifenesin 400 mg tablet 400 mg PO QHS cyanocobalamin (vitamin B-12) 1,000 mcg tablet 1,000 mcg PO DAILY calcium carbonate [Antacid (calcium carbonate)] 200 mg calcium (500 mg) tablet,chewable 200 mg PO TID diclofenac sodium [Voltaren Arthritis Pain] 1 % gel 2 g topical BID Rx Instructions: apply to single elbow, wrist or hand; for hand includes palm/fingers/back of hand Mucinex DM 30-600 mg tablet extended release 12 hr 1 tablet PO Q12H PRN (Reason: cough) sodium chloride [Vanessa 128] 5 % ointment 1 applic EACH EYE QID ferrous sulfate 325 mg (65 mg iron) Tablet 325 mg PO BID ascorbic acid (vitamin C) 500 mg Capsule, Extended Release 500 mg PO BID polyethylene glycol 3350 [Miralax] 17 gram Powder In Packet 17 g PO QPM levothyroxine 25 mcg tablet 25 mcg PO DAILY cholecalciferol (vitamin D3) 1,000 units 25 mcg PO DAILY diltiazem HCl 30 mg tablet 30 mg PO TID Patient Comments: HOLD if HR<50 or SBP<100 or DBP<70 Rx Instructions: HOLD IF HR<50 OR SBP<100 docusate sodium [Colace] 100 mg capsule 100 mg PO BID PRN (Reason: constipation) LidozenPatch(lido HCl-menthol) 4-1 % adhesive patch,medicated 1 patch topical DAILY Patient Comments: uses 2 patches to right shoulder Rx Instructions: may leave on area for up to 8 hrs ipratropium bromide 0.02 % solution 2.5 ml inhalation TID fluticasone propionate [Flonase Allergy Relief] 50 mcg/actuation spray,suspension 2 spray intranasal DAILY Rx Instructions: administer into each nostril Eliquis 5 mg tablet 5 mg PO BID furosemide 40 mg tablet 40 mg PO DAILY levetiracetam [Keppra] 500 mg Tablet 1,500 mg PO Q12HR Qty: 30 0RF hydrocortisone 1 % Cream 1 applic topical Q12HR Qty: 10 0RF Patient Comments: apply topically to bilateral arms and shoulders BID ondansetron 4 mg tablet,disintegrating 4 mg PO Q4H PRN (Reason: nausea and vomiting) nystatin 100,000 unit/gram cream 1 applic topical BID Date of admission: 04/07/25 18:31 Primary Care Provider: JinnyBessie MD Admitting Provider: Kiara Richardson Attending physician on admission: Keaton Markham Condition: Stable Quality VTE Prophylaxis VTE prophylaxis: mechanical ordered
[2025-04-10 14:00] VITALS: BP 115/48; PULSE 87; RESP 16; TEMP 36.4; O2SAT 99
--- NOTE | 2025-04-13 08:11 | PC.NURSE ---
Urine cx growing Klebsiella pneumoniae. Susceptible to Levofloxacin. This is what pt was dc on.
--- NOTE | 2025-04-16 07:31 | PC.NURSE ---
Blood cx show no growth.
== END 2025-04-10 17:35 | DRG 698 ==
LOC: ANHED 18:27 → ANH2MED 21:05
PROVIDERS: Nurse Practitioner; Nurse Practitioner Adult Health; Admitting Provider General Practice; Emergency Provider Emergency Medicine; Visit Provider Internal Medicine
DX: T83.511A Infection and inflammatory reaction due to indwelling urethral catheter, initial encounter (principal); J18.9 Pneumonia, unspecified organism; G82.22 Paraplegia, incomplete; I50.30 Unspecified diastolic (congestive) heart failure; N30.00 Acute cystitis without hematuria; Y95 Nosocomial condition; N18.30 Chronic kidney disease, stage 3 unspecified; D63.1 Anemia in chronic kidney disease; G40.909 Epilepsy, unspecified, not intractable, without status epilepticus; J44.9 Chronic obstructive pulmonary disease, unspecified; E03.9 Hypothyroidism, unspecified; R41.82 Altered mental status, unspecified; L89.159 Pressure ulcer of sacral region, unspecified stage; K21.9 Gastro-esophageal reflux disease without esophagitis; E55.9 Vitamin D deficiency, unspecified; I73.9 Peripheral vascular disease, unspecified; I48.0 Paroxysmal atrial fibrillation; N31.9 Neuromuscular dysfunction of bladder, unspecified; R60.0 Localized edema; N28.1 Cyst of kidney, acquired; G47.33 Obstructive sleep apnea (adult) (pediatric); E66.9 Obesity, unspecified; Z66 Do not resuscitate; Z99.81 Dependence on supplemental oxygen; Z86.16 Personal history of COVID-19; V29.99XS Rider (driver) (passenger) of other motorcycle injured in unspecified traffic accident, sequela; Z89.412 Acquired absence of left great toe; Z90.49 Acquired absence of other specified parts of digestive tract; Z87.891 Personal history of nicotine dependence; Z68.35 Body mass index [BMI] 35.0-35.9, adult; Z22.322 Carrier or suspected carrier of Methicillin resistant Staphylococcus aureus; Z98.49 Cataract extraction status, unspecified eye; Z93.3 Colostomy status
CPT/HCPCS: 36415; 36600; 70450; 71045; 74230; 80053; 80177; 80179; 80202; 80307; 81001; 82077; 82550; 82565; 82805; 84443; 85014; 85018; 85025; 85610; 85730; 87040; 87086; 87186; 87449; 87641; 92611; 93005; 94640; 99285; A9270; J1956; J3373; J7030

== ENCOUNTER 2025-05-03 10:19 | Outpatient (CLI) | payer MEDICARE, BC, MEDICAID, SELFPAY ==
[2025-05-03 10:33] LABS: Hematocrit 27.0 % (42.0-52.0); Hemoglobin 8.8 g/dL (14.0-18.0); Mean Corpuscular HGB Conc 32.6 g/dl (32-36); Mean Corpuscular Hemoglobin 28.5 pg (26-34); Mean Corpuscular Volume 87.4 fl (80-100); Platelet Count Result 173 k/mm3 (150-375); Red Blood Count 3.09 M/mm3 (4.6-6.20); White Blood Count 7.5 K/mm3 (4.5-10.0)
[2025-05-03 10:36] LABS: Blood Urea Nitrogen 36 mg/dL (8-26); Carbon Dioxide 26 mmol/L (22-30); Chloride 99 mmol/L (98-109); Estimated Glomerular Filt Rate 37; Glucose 139 mg/dL (70-105); Ionized Calcium (POC) 1.17 mmol/L (1.11-1.31); Potassium 4.2 mmol/L (3.5-4.9); Sodium 136 mmol/L (138-146)
--- OUTSIDE RECORDS SUMMARY | 2025-05-03 11:15 | XMS_ITS | Encounter Summary ---
Author Organization [facility] Address [address] [place] [address] Care Team Providers Care Tie Man Name Role Phone Ba Ramirez MD Primary Care Provider [phone] Encounter Details Date Type Department Care Team (Late st Contact Info) Description 05/03/2025 11:15 AM CDT Office Visit [facility] Oncology and Hematology - [place] [address] [facility] [address] [place] [address] Jose Arias MD [address] [facility] [address] [place] [address] Chronic anemia (Primary Dx) Social History Tobacco Use Types Packs/Day Years [...] on file Sexual Orientation Not on file documented as of this encounter Last Filed Vital Signs Vital Sign Reading Time Taken Comments Blood Pressure 130/68 05/03/2025 10:50 AM CDT Pulse 94 05/03/2025 10:50 AM CDT Temperature 36.1 C (96.9 F) 05/03/2025 10:50 AM CDT Respiratory Rate 15 05/03/2025 10:50 AM CDT Oxygen Saturation 96% 05/03/2025 10:50 AM CDT Inhaled Oxygen Concentration - - Weight - - Height - - Body Mass Index - - documented in this encounter Plan of Treatment Upcoming Encounters Date Type Department Care Team (Late st Contact Info) Description 07/31/2025 11:[address] SUPERVISOR Office Visit [facility] Oncology and Hematology - [place] [address] [facility] [address] [place] [address] Jose Arias MD [address] [facility] [address] [place] [address] Scheduled Orders Name Type Priority Associated Diagnoses Orde r Schedule CBC WITHOUT DIFFERENTIAL Lab Stat Chronic anemia Expected: 07/26/2025, Expires: 05/03/2026 BASIC METABOLIC PANEL Lab Stat Chronic anemia Expected: 07/26/2025, Expires: 05/03/2026 documented as of this encounter Visit Diagnoses Diagnosis Chronic anemia- Primary Anemia, unspecified documented in this encounter Care Teams Tie Man Relationship Specialty Start Date End Date Ba Ramirez MD PCP - General Internal Medicine 06/17/22 documented as of this encounter
--- OUTSIDE RECORDS SUMMARY | 2025-05-03 12:05 | XMS_ITS | Clinical Summary ---
Author Organization [facility] Address [address] [place] [address] Care Team Providers Care Cnc Service Technician Name Role Phone Ba Ramirez MD Primary Care Provider [phone] Allergies Active Allergy Reactions Criticality Noted Date Comments Azithromycin Unknown 05/03/2025 Codeine Hallucination Low 03/17/2022 Morphine Delirium Medium [...] mouth every 6 hours as needed. Active acetaminophen (TYLENOL) 325 mg tablet Take 650 mg by mouth every 6 hours as needed for Pain, Moderate. Active nystatin (NYSTOP) 100,000 unit/gram powder Apply to affected area. Active zinc oxide-white petrolatum (REMEDY Z-GUARD) 17-57 % Paste Apply to affected area. Active cetirizine (ZyrTEC) 10 mg tablet Take 10 mg by mouth daily. Active furosemide (LASIX) 40 mg tablet Take 40 mg by mouth daily. 5 Active levETIRAcetam (KEPPRA) 750 mg Tablet Take 750 mg by mouth 2 times daily. 5 Active Active Problems Problem Noted Date Diagnosed Date Chronic kidney disease, unspecified 11/21/2022 Anemia of chronic renal failure, stage 3 (modera te) 03/17/2022 Encounters Date Type Department Care Team Description 05/03/2025 11:15 AM CDT Office Visit [facility] Oncology and Hematology - [place] [address] [place] [address] Jose Arias MD Chronic anemia (Primary Dx) 05/01/2025 Orders Only [facility] Oncology and Hematology - [place] [address] [place] [address] Jose Arias MD Chronic anemia 04/17/2025 Orders Only [facility] Oncology and Hematology - [place] [address] [place] [address] Jose Arias MD Chronic anemia 04/03/2025 Orders Only [facility] Oncology and Hematology - [place] [address] [place] [address] Jose Arias MD Chronic anemia 03/21/2025 External Device Data STL ABSTRACTION Provider, Abstract 03/20/2025 Orders Only [facility] Oncology and Hematology - [place] [address] [place] [address] Jose Arias MD Chronic anemia 03/06/2025 Orders Only [facility] Oncology and Hematology - [place] [address] [place] [address] Jose Arias MD Chronic anemia 02/20/2025 Orders Only [facility] Oncology and Hematology - [place] [address] [place] [address] Jose Arias MD Chronic anemia 02/06/2025 Orders Only [facility] Oncology and Hematology - [place] [address] [place] [address] Jose Arias MD Chronic anemia 02/01/2025 External [...] st Contact Info) Description 07/31/2025 11:15 AM INSTRUMENTATION MANAGER Office Visit [facility] Oncology and Hematology - [place] [address] [facility] [address] [place] [address] Jose Arias MD [address] [facility] [address] [place] [address] Health Maintenance Due Date Last Done Comments Traditional Medicare (ACO) A nnual Wellness Visit 1968 ZOSTER VACCINE (1 of 2) 12/19/1999 Abdominal Aortic Aneurysm (A AA) Screening 2014 RSV VACCINE (60+ or ) (1 - 1-dose 75+ series) 2024 INFLUENZA VACCINE (#1) 2025 9, 02/28/2014, 02/28/2014 DTAP/TDAP/TD VACCINES (2 - T d or Tdap) 06/07/2025 06/07/2015 PNEUMOCOCCAL VACCINE 50+ YEARS Completed 0 08/15/2019, 06/07/2015, 05/02/2004 Insurance [place] PART A AND B BCBS SUPP Advance Directives For more information, please contact: [phone] Documents on File Type Date Recorded Patient Clinical Staff Rn Expl anation Advance Directive POA 02/17/2024 8:01 AM A dvance Directive POA Care Teams Cnc Service Technician Relationship Specialty Start Date End Date Ba Ramirez MD PCP - General Internal Medicine 06/17/22
--- OUTSIDE RECORDS SUMMARY | 2025-05-03 12:05 | XMS_ITS | Clinical Summary ---
Author Organization [facility] Address [address] [place] [address] Phone Care Team Providers Care Senior Microsoft Consultant Name Role Phone Ba Ramirez MD Primary Care Provider [phone] Allergies Active Allergy Reactions Criticality Noted Date [...] by mouth daily 0 Active nystatin (MYCOSTATIN) 553743 UNIT/GM powder Apply topically 2 times daily [...] Comments Blood Pressure 136/78 06/09/2022 9:10 AM CATERING SERVER Pulse - - Temperature 36.2 C (97.2 F) 06/09/2022 9:10 AM CATERING SERVER Respiratory Rate 18 06/09/2022 9:10 AM CATERING SERVER Oxygen Saturation - - Inhaled Oxygen Concentration - - Weight 136 kg (300 lb) 06/09/2022 9:10 AM CATERING SERVER Height 188 cm (6' 2) 06/09/2022 9:10 AM CATERING SERVER Body Mass Index 38.52 06/09/2022 9:10 AM CATERING SERVER Plan of Treatment Health Maintenance Due Date Last Done Comments COVID-19 Vaccine (2024- season) 2025 Influenza Vaccine (#1) 2025 04/19/2019 Pneumococcal PPSV23/PCV13 65 + Years / Low and Medium Risk Completed 08/15/2019, 06/07/2015, 05/02/2004 [place] [address] MEDICARE [place]ICAID - [place] Care Teams Senior Microsoft Consultant Relationship Specialty Start Date End Date Ba Ramirez MD [address] [place] [id number] PCP - General Internal Medicine 11/26/20
--- OUTSIDE RECORDS SUMMARY | 2025-05-03 12:05 | XMS_ITS | Encounter Summary ---
Author Organization [facility] Address [address] [place] [address] Care Team Providers Care Collections Attorney Name Role Phone Ba Ramirez MD Primary Care Provider [phone] Encounter Details Date Type Department Care Team (Late Contact Info) Description 05/01/2025 Orders Only [facility] Oncology and Hematology - [place] [address] [place] [address] Jose Arias MD [facility] [employer] [address] [place] [address] Chronic anemia Social History Tobacco Use Types Packs/Day Years Used Date Smoking Tobacco: Former Cigarettes 2.5 38 0 07/20/1963 - 07/20/2001 Alcohol Use Standard Drinks/Week Comments Yes 2 (1 standard drink = 0.6 oz pur e alcohol) Sex and Gender Information Value Date Recorded Sex Assigned at Not on file Legal Sex Male 4:32 PM CDT Gender Identity Not on file Sexual Orientation Not on file documented as of this encounter Plan of Treatment Upcoming Encounters Date Type Department Care Team (Late st Contact Info) Description 07/31/2025 11:15 AM PRODUCTION EXPERT Office Visit [facility] Oncology and Hematology - [place] [address] [place] [address] Jose Arias MD [address] [employer] [address] [place] [address] documented as of this encounter Visit Diagnoses Diagnosis Chronic anemia Anemia, unspecified documented in this encounter Care Teams Collections Attorney Relationship Specialty Start Date End Date Ba Ramirez MD PCP - General Internal Medicine 06/17/22 documented as of this encounter
--- OUTSIDE RECORDS SUMMARY | 2025-05-03 12:05 | XMS_ITS | Clinical Summary ---
Author Organization [facility] Address [address] [place] [address] Care Team Providers Care Safety Compliance Specialist Name Role Phone Ba Ramirez MD Primary Care Provider [phone] Source Comments [facility],non-owned Affiliates and Associated Physician Practices is amultiple site organization consisting of ambulatory clinics and hospital sitesin [place], [place], [place] and [place]. This disclosure is being madepursuant to the Care Everywhere program and may not contain all information available regarding this patient. 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
== END 2025-05-03 10:20 | disposition home or self-care (01) ==
LOC: ANHLAB 10:21
PROVIDERS: PCP Internal Medicine; Visit Provider Internal Medicine Hematology & Oncology
DX: D64.9 Anemia, unspecified (principal)
CPT/HCPCS: 36415; 80047; 85027

== ENCOUNTER 2025-06-24 14:29 | Emergency (ER) | payer MEDICARE, BC, SELFPAY ==
[2025-06-24 14:27] VITALS: BP 149/63; PULSE 78; RESP 22; TEMP 36.4; O2SAT 99
[2025-06-24] MEDS: LIDOCAINE 2% GEL UROJET 10 ML PKG MUCOUS MEM (15:06)
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
[2025-06-24 16:55] LABS: Add Urine Microscopic? YES; Appearance Urine Cloudy (Clear); Glucose Urine UA Negative (Negative); Leukocyte Esterase Ur 2+ LEU/UL (Negative); Nitrate Urine Negative (Negative); Non Pathogenic Casts 0-2; Specific Grav Ur 1.011 (1.001-1.035)
[2025-06-24 19:27] VITALS: BP 136/87; PULSE 81; RESP 20; O2SAT 96
== END 2025-06-24 19:29 ==
PROVIDERS: Emergency Provider Registered Nurse
DX: Z43.6 Encounter for attention to other artificial openings of urinary tract (principal); N39.0 Urinary tract infection, site not specified; I50.9 Heart failure, unspecified; I48.0 Paroxysmal atrial fibrillation; I13.0 Hypertensive heart and chronic kidney disease with heart failure and stage 1 through stage 4 chronic kidney disease, or unspecified chronic kidney disease; N18.9 Chronic kidney disease, unspecified; D63.1 Anemia in chronic kidney disease; G82.20 Paraplegia, unspecified; S24.154S Other incomplete lesion at T11-T12 level of thoracic spinal cord, sequela; V29.99XS Rider (driver) (passenger) of other motorcycle injured in unspecified traffic accident, sequela; E55.9 Vitamin D deficiency, unspecified; E53.8 Deficiency of other specified B group vitamins; E61.1 Iron deficiency; K21.9 Gastro-esophageal reflux disease without esophagitis; J43.9 Emphysema, unspecified; E03.9 Hypothyroidism, unspecified; G62.9 Polyneuropathy, unspecified; Z66 Do not resuscitate; Z86.16 Personal history of COVID-19; Z87.01 Personal history of pneumonia (recurrent); Z87.891 Personal history of nicotine dependence; Z90.49 Acquired absence of other specified parts of digestive tract; Z89.412 Acquired absence of left great toe; Z79.01 Long term (current) use of anticoagulants; Z79.899 Other long term (current) drug therapy; Z79.84 Long term (current) use of oral hypoglycemic drugs
CPT/HCPCS: 51702; 81001; 87077; 87086; 87186; 99283; A9270